=== PATIENT | female | born 1950 | race Caucasian/White ===

== ENCOUNTER → 2016-11-23 | Day surgery (SDC) | payer OTHER ==
[~2016-11-23] MED LIST: DIAZEPAM 5 MG TAB PO STA; HYDROcodone/APAP 5-325MG 1 EACH TAB PO PRN; PREMYELOGRAM MEDICATION REVIEW 1 EACH MISC PO ONE; SODIUM BICARB 4% 5 ML VIAL (0.48 MEQ/ML) MISCELLANE PRN
[2016-11-23 08:22] VITALS: TEMP 98
[2016-11-23 08:57] LABS: Glucose,Whole Blood 210 mg/dL (75-99)
--- NOTE | 2016-11-23 11:52 | CT ---
EXAMINATION TYPE: CT lumbar spine w con DATE OF EXAM: 11/23/2016 11:40 AM COMPARISON: Previous study dated 07/27/2016. HISTORY: Radiculopathy and Myelopathy CT DLP: 1621.3 mGycm Automated exposure control for dose reduction was used. CONTRAST: CT scan of the lumbar is performed with intrathecal injection of 9 cc of Omnipaque 240. TECHNIQUE: Enhanced CT of the lumbar spine was performed. Bone and soft tissue window settings are s ubmitted as well as coronal and sagittal reconstructions. FINDINGS: There is tortuosity of the abdominal aorta. There is an infrarenal abdominal aortic aneurys m measuring 3.3 cm. Paraspinal soft tissues are otherwise normal. Vertebral body height and alignment are maintained. There is no spondylolysis or spondylolisthesis. T here is degenerative disc disease and vacuum phenomena present at T11-12 and T12-L1 as well as L5-S1. At T12-L1, there is a vacuum phenomena. There is hypertrophic spondylosis. There is no significant co mpressive discopathy. The intervertebral foramina appear widely maintained. The facets are unremarkab le. At L1-2, there is mild hypertrophic spondylosis anteriorly. The intervertebral foramina are widely pa tent. There is a diffuse disc displacement effacing the thecal sac. There is minimal facet arthropath y. At L2-3, the intervertebral foramina are widely maintained. There is a diffuse disc displacement mild ly effacing the thecal sac. There is mild facet arthropathy. At L3-4, the intervertebral foramina are well maintained. There is a diffuse disc displacement effaci ng the thecal sac. The facets appear unremarkable. At L4-5, there is marked hypertrophic change in the facets. There is a diffuse disc displacement effa cing the thecal sac. There is mild trefoiling of the thecal sac. At L5-S1, there is disc space loss and vacuum phenomena. The intervertebral foramina appear well main tained. There is hypertrophic spondylosis both anteriorly and posteriorly. The posterior spurring is effacing the thecal sac and abutting both traversing S1 nerve roots. IMPRESSION: 1. Diffuse degenerative disc disease and facet arthropathy. 2. Posterior bony spur, L5-S1, effaces both of the traversing S1 nerve roots.
--- NOTE | 2016-11-23 11:57 | CT ---
EXAMINATION TYPE: CT cervical spine w con DATE OF EXAM: 11/23/2016 11:39 AM COMPARISON: NONE HISTORY: Radiculopathy and Myelopathy CT DLP: 862.2 mGycm Automated exposure control for dose reduction was used. TECHNIQUE: CT scan of the brain and cervical spine are performed after the intrathecal injection of 9 0 cc Omnipaque 240. FINDINGS: There is good distribution of contrast around the cervical cord. There is mild dependent atelectasis within the dependent portions of the lungs. There is extensive vascular calcification present. Prevertebral soft tissues appear normal. Vertebral body height and alignment remain normal. There is a normal atlantoaxial relationship. There is a fusion at C6-7. The remaining disc levels are well maintained. There is no significant deg enerative disc disease, uncovertebral joint disease or facet arthropathy. From C2-3 through to C4-5, no abnormality is seen. At C5-6, there is a mild, diffuse disc displacement. There is mild right-sided intervertebral foramin al narrowing. The facet and uncovertebral joints are unremarkable. At C6-7, there appears to be congenital fusion. The intervertebral foramina are well maintained. Ther e is no significant compressive discopathy. The facets are unremarkable. At C7-T1, there is no significant compressive discopathy. The intervertebral foramina are well mainta ined. The facet and uncovertebral joints are unremarkable. IMPRESSION: 1. 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 2. No significant compressive discopathy or neural compression.
--- NOTE | 2016-11-23 12:07 | FL ---
EXAMINATION TYPE: FL myelogram 2 or more regions DATE OF EXAM ORDERED: 11/23/2016 11:59 AM HISTORY: Neck and back pain. COMPARISON: None. TECHNIQUE: The procedure was performed by Dr. Matt. Using a right paracentral approach, the thecal sac was punctured at the L2-3 level. 9 cc of Omnipaque 240 were instilled into the thecal sac. The patient was manipulated to distribute the contrast throu ghout the spinal canal. The patient was transferred to CT scan for further imaging. IMPRESSION: SUCCESSFUL LUMBAR PUNCTURE FOR INSTILLATION OF CONTRAST. FLUOROSCOPY TIME: 1 MINUTE 14 SECONDS.
[2016-11-23 13:24] VITALS: BP 170/72; PULSE 66; RESP 18
== END ==
LOC: RADPROMAIN 07:46
DX: M51.14 Intervertebral disc disorders with radiculopathy, thoracic region (principal); M51.15 Intervertebral disc disorders with radiculopathy, thoracolumbar region; M51.17 Intervertebral disc disorders with radiculopathy, lumbosacral region; M47.25 Other spondylosis with radiculopathy, thoracolumbar region; M47.26 Other spondylosis with radiculopathy, lumbar region; M47.27 Other spondylosis with radiculopathy, lumbosacral region; M46.96 Unspecified inflammatory spondylopathy, lumbar region; M46.07 Spinal enthesopathy, lumbosacral region; I71.4 Abdominal aortic aneurysm, without rupture; M43.22 Fusion of spine, cervical region; M50.122 Cervical disc disorder at C5-C6 level with radiculopathy; M50.022 Cervical disc disorder at C5-C6 level with myelopathy; M48.06 Spinal stenosis, lumbar region; Z88.5 Allergy status to narcotic agent; K21.9 Gastro-esophageal reflux disease without esophagitis; I10 Essential (primary) hypertension; F41.9 Anxiety disorder, unspecified; F32.9 Major depressive disorder, single episode, unspecified; E11.9 Type 2 diabetes mellitus without complications
CPT/HCPCS: 62305; 72126; 72132; J2001; 62284

== ENCOUNTER → 2016-12-17 | Outpatient (CLI) | payer OTHER ==
--- NOTE | 2016-12-18 09:30 | XR ---
EXAMINATION TYPE: XR chest 2V DATE OF EXAM: 12/17/2016 12:19 PM COMPARISON: 07/16/2016 TECHNIQUE: PA and lateral views submitted. HISTORY: Cough FINDINGS: Heart is enlarged. There is postsurgical change. No pneumothorax. No interstitial edema. IMPRESSION: 1. No acute process
== END ==
LOC: RADXRYALE 11:52
PROVIDERS: ATTEND Physician Assistant Medical
DX: R05 Cough (principal); R60.9 Edema, unspecified
CPT/HCPCS: 71020

== ENCOUNTER → 2017-03-04 | Outpatient (CLI) | payer OTHER ==
--- NOTE | 2017-03-05 08:51 | XR ---
EXAMINATION TYPE: XR chest 2V DATE OF EXAM: 03/04/2017 11:28 AM COMPARISON: 12/17/2016 TECHNIQUE: PA and lateral views submitted. HISTORY: COPD FINDINGS: The lungs are clear and there is no pneumothorax, pleural effusion, or focal pneumonia. Cardiomegal y and postoperative changes seen. There is a coarsened interstitium which appears chronic. Degenerati ve change of the spine. Correlate for underlying COPD. Arthropathy of the shoulder. IMPRESSION: 1. Cardiomegaly with coarsened interstitium which appears chronic. Correlate for chronic interstitial lung disease or congestion.
== END | disposition home or self-care (01) ==
LOC: RADXRYALE 10:57
PROVIDERS: ATTEND Physician Assistant Medical
DX: I51.7 Cardiomegaly (principal)
CPT/HCPCS: 71020; 87070

== ENCOUNTER → 2017-06-07 | Outpatient (CLI) | payer MEDICARE, OTHER ==
--- NOTE | 2017-06-07 11:43 | US ---
EXAMINATION TYPE: US abdomen complete DATE OF EXAM: 06/07/2017 COMPARISON: US CLINICAL HISTORY: R19.00 Abdominal mass, unspecified abdominal locat. known AAA EXAM MEASUREMENTS: Liver Length: 14.6 cm Gallbladder Wall: Surgically absent cm CBD: 0.3 cm Spleen: 12.2 cm Right Kidney: 12.5 x 4.5 x 5.3 cm Left Kidney: 11.9 x 5.0 x 5.8 cm patient's main complaint was lump which was imaged on pelvic exam. Pancreas: not visualized Liver: Homogeneous echotexture without discrete mass. Gallbladder: Surgically absent CBD: wnl Spleen: wnl Right Kidney: No hydronephrosis or masses seen Left Kidney: No hydronephrosis or masses seen Upper IVC: wnl Abd Aorta: mid/distal AAA. Distal aorta contains a saccular area of ectasia measuring 3.1 x 3.4 cm. The liver is homogenous. The intrahepatic portion of the IVC and proximal abdominal aorta are within normal limits. There is no evidence of cholelithiasis. Common bile duct is unremarkable. The splee n is unremarkable. Kidneys are symmetric and free of hydronephrosis. No renal lesions are seen. IMPRESSION: 1. Saccular ectasia of the distal abdominal aorta measuring 3.1 x 3.4 cm.
--- NOTE | 2017-06-07 11:56 | US ---
EXAMINATION TYPE: US pelvic complete DATE OF EXAM: 06/07/2017 COMPARISON: NONE CLINICAL HISTORY: R19.00 Abdominal mass, unspecified abdominal locat. TECHNIQUE: Transabdominal (TA) Date of LMP: post menopausal EXAM MEASUREMENTS: Uterus: not seen cm Endometrial Stripe: not seen cm Right Ovary: not seen cm Left Ovary: not seen cm Patient has lump under pelvic scar from back surgery in March. Under lump there is a 6.1 x 4.4 x 8.6 c m complex fluid collection. Uterus and ovaries not visualized, patient refused transvag exam as she s tated she was here for the lump. 1. Uterus: not seen 2. Endometrium: not seen 3. Right Ovary: not seen 4. Left Ovary: not seen 5. Bilateral Adnexa: wnl 6. Posterior cul-de-sac: no free fluid IMPRESSION: 1. Avascular 8.6 cm complex fluid collection deep to the surgical scar that likely represents resolvi ng hematoma and/or seroma. Short-term follow-up is recommended to ensure resolution. 2. Nonvisualization of the uterus, endometrium, or ovaries as evaluation was directed towards the pal pable abnormality.
== END ==
LOC: RADUSWWP 10:49
PROVIDERS: ATTEND Family Medicine
DX: R19.00 Intra-abdominal and pelvic swelling, mass and lump, unspecified site (principal); I77.811 Abdominal aortic ectasia
CPT/HCPCS: 76700; 76856

== ENCOUNTER → 2017-07-11 | Outpatient (CLI) | payer MEDICARE, OTHER ==
--- NOTE | 2017-07-12 12:07 | MM ---
Reason for exam: screening (asymptomatic). Last mammogram was performed 1 year and 11 months ago. History: Patient is postmenopausal. Physical Findings: A clinical breast exam by your physician is recommended on an annual basis and results should be correlated with mammographic findings. MG Screening Mammo w CAD Bilateral CC and MLO view(s) were taken. XCCL view(s) were taken of the left breast. Prior study comparison: August 23, 2015, left breast MG 3d diag mammo w/cad LT. February 28, 2015, left breast MG work up mamm w CAD LT. There are scattered fibroglandular densities. 5mm asymmetry medial right breast anterior to middle depth. This finding is changed when compared with previous exams. ASSESSMENT: Incomplete: need additional imaging evaluation, BI-RAD 0 RECOMMENDATION: Special view mammogram of the right breast. If lesion persists on supplemental views, image directed ultrasound is recommended. [facility] will attempt to contact patient to return for supplemental views and ultrasound if indicated.
== END | disposition home or self-care (01) ==
LOC: RADMAMWWP 07:13
PROVIDERS: ATTEND Family Medicine
DX: Z12.31 Encounter for screening mammogram for malignant neoplasm of breast (principal)

== ENCOUNTER → 2017-07-22 | Outpatient (CLI) | payer MEDICARE, OTHER ==
--- NOTE | 2017-07-22 14:16 | MM ---
Reason for exam: additional evaluation requested from abnormal screening. Last mammogram was performed less than 1 month ago. History: Patient is postmenopausal. Physical Findings: Nurse did not find any significant physical abnormalities on exam. MG 3D Work Up W/Cad RT LM and spot compression CC view(s) were taken of the right breast. Prior study comparison: July 11, 2017, bilateral MG screening mammo w CAD. August 23, 2015, left breast MG 3d diag mammo w/cad LT. February 28, 2015, left breast MG work up mamm w CAD LT. February 22, 2015, bilateral MG screening mammo w CAD. September 24, 2013, bilateral digital screening mammo w/CAD. There are scattered fibroglandular densities. The questioned anterior asymmetry completely disperses on spot 3D. No significant new findings when compared with previous films. These results were verbally communicated with the patient and result sheet given to the patient on 07/22/17. ASSESSMENT: Negative, BI-RAD 1 RECOMMENDATION: Return to routine screening mammogram schedule for both breasts.
== END | disposition home or self-care (01) ==
LOC: RADMAMWWP 13:31
PROVIDERS: ATTEND Family Medicine
DX: R92.8 Other abnormal and inconclusive findings on diagnostic imaging of breast (principal)
CPT/HCPCS: G0206; G0279

== ENCOUNTER → 2018-01-02 | Outpatient (CLI) | payer MEDICARE, OTHER ==
--- NOTE | 2018-01-03 13:32 | CT ---
EXAMINATION TYPE: CT angio neck DATE OF EXAM: 01/03/2018 COMPARISON: NONE HISTORY: Right carotid stenosis. CT DLP: 439 mGycm CONTRAST: CTA cervical carotids is performed and with IV Contrast, patient injected with 65 mL of Omnipaque 350 . Contrast CTA of the cervical carotids was performed 3-D reconstruction imaging obtained at a separate workstation. Right carotid system: Mild plaque is seen of the right common carotid artery. There is moderate to s evere plaque also noted at the carotid bulb and proximal right ICA. Estimated diameter reduction is greater than 90%. ECA is patent. Right vertebral artery appears unremarkable. Left carotid system: Mild plaque is seen of the left common carotid artery. There is mild plaque als o noted at the carotid bulb. Estimated diameter reduction is less than 40%. ECA is patent. Left ve rtebral artery appears unremarkable. Diminutive the left thyroid lobe. Suspect right thyroid nodule. Correlate with the ultrasound. IMPRESSION: 1. High-grade stenosis right ICA estimated at greater than 90%. 2. Estimated diameter reduction Left ICA less than 40%.
== END | disposition home or self-care (01) ==
LOC: RADCTMAIN 16:04
PROVIDERS: ATTEND Thoracic Surgery (Cardiothoracic Vascular Surgery)
DX: I65.21 Occlusion and stenosis of right carotid artery (principal)
CPT/HCPCS: 82565; 84520; 70498; 36415; Q9967

== ENCOUNTER → 2018-03-31 | Outpatient (CLI) | payer MEDICARE, OTHER ==
[2018-03-31 10:21] LABS: Anisocytosis Slight; Basophils % (A) 0 %; Eosinophils # (A) 0.2 k/uL (0-0.7); Eosinophils % (A) 2 %; HGB 13.2 gm/dL (11.4-16.0); Hypochromasia Slight; Lymphocytes # (A) 1.9 k/uL (1.0-4.8); Lymphocytes % (A) 21 %; MCH 27.7 pg (25.0-35.0); MCHC 32.1 g/dL (31.0-37.0); MCV 86.3 fL (80.0-100.0); Mean Platelet Volume 6.7; Monocytes # (A) 0.5 k/uL (0-1.0); Monocytes % (A) 5 %; Neutrophils # (A) 6.2 k/uL (1.3-7.7); Neutrophils % (A) 69 %; Platelet Count 292 k/uL (150-450); RBC 4.75 m/uL (3.80-5.40); RDW 16.2 % (11.5-15.5)
[2018-03-31 10:54] LABS: Appearance,Urine Cloudy (Clear); Bacteria,Urine Moderate /hpf; Bilirubin,Urine Negative (Negative); Blood,Urine Trace (Negative); Color,Urine Yellow; Glucose,Urine (UA) Negative (Negative); Hyaline Casts,Urine 1 /lpf (0-2); Ketones,Urine Negative (Negative); Leukocyte Esterase,Urine Large (Negative); Mucus,Urine Occasional /hpf; Nitrite,Urine Negative (Negative); Protein,Urine 2+ (Negative); RBC,Urine 4 /hpf (0-5); Specific Gravity,Urine 1.019 (1.001-1.035); Squamous Epithelial Cell,Urine 3 /hpf (0-4); WBC,Urine 98 /hpf (0-5)
[2018-03-31 10:56] LABS: Potassium 3.5 mmol/L (3.5-5.1)
== END | disposition home or self-care (01) ==
LOC: LABPAT 09:24
PROVIDERS: ATTEND Surgery
DX: Z01.812 Encounter for preprocedural laboratory examination (principal); I65.21 Occlusion and stenosis of right carotid artery
CPT/HCPCS: 36415; 80051; 81001; 82565; 82947; 84520; 85025

== ENCOUNTER 2018-04-03 07:02 | Inpatient (IN) | payer MEDICARE, OTHER ==
[2018-03-26 13:32] VITALS: BMI 36.8
[~2018-04-03 07:02] MED LIST changes: +DEXAMETHASONE SOD PHOSPHATE 10 MG/ML 1 ML VIAL IV ONE; -DIAZEPAM 5 MG TAB PO STA; -HYDROcodone/APAP 5-325MG 1 EACH TAB PO PRN; +HYDROmorphone 0.5 MG/0.5 ML SYRINGE IVP PRN; +MIDAZOLAM 2 MG/2 ML VIAL IV PRN; +NITROGLYCERIN-D5W PMX 50 MG in DEXTROSE/WATER 1 250ML.BAG IV SCH; +ONDANSETRON 4 MG/2 ML VIAL IVP ONE; +PHENYLEPHRINE 40 MG in SODIUM CHLORIDE 0.9% 250 ML IV SCH; -PREMYELOGRAM MEDICATION REVIEW 1 EACH MISC PO ONE; -SODIUM BICARB 4% 5 ML VIAL (0.48 MEQ/ML) MISCELLANE PRN
[2018-04-03] MEDS ORDERED: LIDOCAINE 1% 20 ML VIAL (10MG/ML) FOR IV START INTRADERMA ONE (07:43)
[2018-04-03] MEDS: LACTATED RINGERS 1,000 ML IV SCH ×2 (07:43→17:41)
[2018-04-03 07:46] LABS: Glucose,Whole Blood 126 mg/dL (75-99)
[2018-04-03] MEDS ORDERED: ceFAZolin 2,000 MG in SODIUM CHLORIDE 0.9% 500 ML IRRIGATION ONE (09:06)
[2018-04-03] MEDS ORDERED: HEPARIN SODIUM PORCINE IV ONE ×4 (09:06)
[2018-04-03] MEDS ORDERED: SODIUM CHLORIDE 0.9% IV ONE ×4 (09:06)
[2018-04-03] MEDS ORDERED: ROCURONIUM BROMIDE 10 MG/ML 10 ML VIAL IV ONE (09:08)
[2018-04-03] MEDS ORDERED: PROTAMINE SULFATE 10 MG/ML 5 ML VIAL IV ONE (09:08)
[2018-04-03] MEDS ORDERED: HEPARIN SODIUM,PORCINE 10,000 UNIT/ML 1 ML VIAL ONE (09:08)
[2018-04-03] MEDS ORDERED: ePHEDrine SULFATE/0.9% NACL/PF 50 MG/5 ML SYRINGE IV ONE (09:08)
[2018-04-03] MEDS ORDERED: MIDAZOLAM 2 MG/2 ML VIAL ONE (09:08)
[2018-04-03] MEDS ORDERED: PROPOFOL 10 MG/ML 20 ML VIAL IV ONE (09:08)
[2018-04-03] MEDS ORDERED: SUCCINYLCHOLINE CHLORIDE 100 MG/5 ML SYR IV ONE (09:08)
[2018-04-03] MEDS ORDERED: HYDROmorphone (PF) 1 MG/ML ONE (09:08)
[2018-04-03] MEDS ORDERED: NEOSTIGMINE 1 MG/ML 10 ML VIAL ONE (09:08)
[2018-04-03] MEDS ORDERED: LIDOCAINE 1% INJ 10MG/ML (20 ML MDV) ONE (09:08)
[2018-04-03] MEDS ORDERED: fentaNYL (PF) 50 MCG/ML 2 ML AMP ONE (09:08)
[2018-04-03] MEDS ORDERED: LACTATED RINGERS 1,000 ML IV ONE (10:31)
[2018-04-03] MEDS ORDERED: MAG HYDROX/AL HYDROX/SIMETH 30 ML CUP PO PRN (11:39)
[2018-04-03] MEDS ORDERED: ACETAMINOPHEN TAB 325 MG TAB PO PRN (11:39)
[2018-04-03] MEDS ORDERED: HYDROcodone/APAP 5-325MG 1 EACH TAB PO PRN (11:39)
[2018-04-03] MEDS ORDERED: BENZOCAINE/MENTHOL LOZENG 1 EACH LOZENGE MUCOUS MEM PRN (11:39)
[2018-04-03] MEDS ORDERED: TRIMETHOBENZAMIDE 100 MG/ML 2 ML VIAL IM PRN (11:39)
[2018-04-03] MEDS ORDERED: LABETALOL SYRINGE 5 MG/ML IVP ONE (12:00)
--- NOTE | 2018-04-03 12:04 | P.OP ---
Date of Procedure: 04/03/18 Preoperative Diagnosis: Hemodynamically severe right internal carotid artery stenosis Postoperative Diagnosis: Same Procedure(s) Performed: Right carotid endarterectomy with patch angioplasty Anesthesia: JULIANA Surgeon: Jignesh Benavides Estimated Blood Loss (ml): 100 Pathology: other (Carotid plaque) Disposition: PACU Indications for Procedure: Patient is a 67-year-old female on follow-up for carotid disease was found to be suffering from hemodynamically severe right internal carotid artery stenosis Operative Findings: Hemodynamically severe right internal carotid artery stenosis Description of Procedure: Patient was brought the upper and placed in supine position and administered general endotracheal anesthesia delivered by the department of anesthesiology. Mckeon catheter was placed to gravity drainage. Patient received 2 g of Ancef intravenously in the perioperative phase for prophylactic therapy. Patient was sterilely prepped and draped in usual manner. Skin incision along the anterior border of the sternocleidomastoid muscle on the right was made carried down through the subcutaneous tissues. Hemostasis was achieved using electrocautery. Incision was deepened through subcu change tissues. Platysma muscle was divided. Dissection was then continued along the anterior border sternocleidomastoid muscle. The facial vein was identified doubly ligated and divided between the ligatures. The carotid sheath was identified and entered. The common carotid artery was identified proximally dissected free of investing tissues. The vagus nerve was identified and left undisturbed. The dissection was then carried cephalad to the carotid bulb. The superior thyroid artery and external carotid artery were identified dissected free of investing tissues and encircled Vesseloops. The dissection was then carried proximally along the internal carotid artery to a point passed the plaque burden was reached. The carotid artery was encircled Vesseloops at this level. The hypoglossal nerve was identified and left undisturbed. The patient was systemically heparinized and ACT is were drawn. Heparin was adjusted based on ACT results. Vessel loops surrounding the internal and external/superior thyroid artery and common carotid artery drawn closed. Arteriotomy was made in the common carotid artery extended with Pott Hobbs scissors through the bulb level and into the internal carotid artery. Stump pressures were obtained. Mean pressure was measured at 82 mmHg and thus no shunting was felt necessary. Endarterectomy was then performed beginning in the common carotid extending distally into the bulb level where a retraction endarterectomy was performed on the external segment. Once performed the endarterectomy was then continued into the internal carotid segment and the distal tip feathered well without need for tacking sutures. The plaque was sent to the department of anesthesiology. Any loose or free-floating plaque was then removed from the luminal surface. Patch angioplasty closure with bovine pericardium was performed utilizing 6-0 Prolene suture placed in running fashion. Just prior to completion of the anastomotic line backbleeding was allowed to occur through the internal segment no thrombus was retrieved. It was then occluded at its origin and the common carotid artery was flushed and no thrombus was retrieved. The anastomotic line was then completed. Once again backbleeding was allowed to occur through the internal segment and the artery was occluded at its origin. Vessel loops surrounding the external carotid/superior thyroid artery were loosened followed by loosening of the vessel loops surrounding the common carotid artery. Flow was then allowed to occur into the external segment flushing any potential debris into the external segment. Flow was then allowed to occur into the internal segment. One point of bleeding was identified along the anastomotic line and this was controlled was 6-0 Prolene suture. Excellent pulse in the carotid artery distal to the endarterectomy plane was noted. The patient received 25 mg protamine to reverse the heparin effect. Topical thrombin and Gelfoam were placed about the anastomotic line. The wound was then irrigated with antibiotic containing solution. Deep tissues were closed with 3-0 Vicryl and dermis was closed with 4-0 Monocryl placed in running intradermal fashion. Dermabond was then applied to the wound. Appropriate dressing was then applied. Patient tolerated procedure well. She awoke without apparent neurologic deficit and was transferred to the recovery area satisfactory and stable condition.
[2018-04-03 12:06] LABS: Glucose,Whole Blood 208 mg/dL (75-99)
[2018-04-03] MEDS ORDERED: ENALAPRILAT 1.25 MG/ML 1 ML VIAL IVP ONE (12:26)
[2018-04-03 13:59] LABS: Glucose,Whole Blood 240 mg/dL (75-99)
[2018-04-03] MEDS ORDERED: NALOXONE 0.4 MG/ML 1 ML VIAL IV PRN (14:02)
[2018-04-03 17:21] LABS: Glucose,Whole Blood 260 mg/dL (75-99)
[2018-04-03] MEDS: ASPIRIN 81 MG PO SCH (17:21)
[2018-04-03] MEDS: ceFAZolin IN SWFI 2 GM/20 ML SYRINGE IVP SCH (17:41)
[2018-04-03] MEDS: INSULIN ASPART 100 UNIT/ML 1 ML 10 ML VIAL SQ SCH ×2 (17:41→20:36)
--- NOTE | 2018-04-03 18:23 | P.CNPUL ---
History of Present Illness Consult date: 04/03/18 Chief complaint: Right carotid endarterectomy History of present illness: 67-year-old female patient underwent a right carotid endarterectomy in currently she is in the intensive care unit for postoperative monitoring. The patient underwent her surgery without any immediate complications. She was brought into the intensive care unit hemodynamically stable. She has no specific complaints. The patient is slightly hypertensive and currently she is on nitroglycerin drip running at 25 mics per KG per minute. The patient has history of hypertension. She also has history of COPD, diabetes mellitus, hyperlipidemia, and previous history of abdominal aortic aneurysm. She has already undergone a previous left carotid endarterectomy. She is known to have carotid artery disease. No history of CVA. 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 She follows up with Dr. Garzon from cardiology and her primary care physician is Dr. Jaden Salazar. She has normal left posterior function and ejection fraction based on previous echocardiogram and previous chronic stress test were also within normal limits. She is free of any chest pain for now. She is a chronic smoker. Review of Systems Full review of system was done in its positive for only the things mentioned above. No chest pain. No shortness of breath. No angina. No altered mentation. She is moving all 4 extremities without any limitation. No change in her speech. No headache. No seizure activity. No nausea or vomiting. No diarrhea or abdominal pain. No palpitations. No angina. No swelling lower extremities. No wounds or sores or ulceration. No falls. 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 History of Any Multi-Drug Resistant Organisms: None Reported Past Surgical History: Appendectomy, Back Surgery, Cholecystectomy, Heart Catheterization, Orthopedic Surgery Additional Past Surgical History / Comment(s): Resection of an atrial myxoma/ open heart for removal of tumor on the heart, arthroscopic bilateral knees, left carotid endarterectomy 2014, cyst removed from left ovary, devyn cataracts Past Anesthesia/Blood Transfusion Reactions: No Reported Reaction Smoking Status: Current every day smoker - Past Family History Mother Family Medical History: Diabetes Mellitus, Hyperlipidemia, Hypertension Sister(s) Family Medical History: Cancer Medications and Allergies Home Medications Medication Instructions Recorded Confirmed Type Esomeprazole Magnesium [NexIUM] 40 mg PO DAILY 03/23/14 04/03/18 History Furosemide [Lasix] 20 mg PO HS 03/23/14 04/03/18 History Insulin Aspart [NovoLOG] See Protocol SQ TID-W/MEALS PRN 03/23/14 04/03/18 History Insulin Detemir [Levemir] 60 unit SQ HS 03/23/14 04/03/18 History Aspirin [Adult Low Dose Aspirin EC] 81 mg PO DAILY 03/26/18 04/03/18 History Enalapril Maleate [Vasotec] 20 mg PO DAILY 03/26/18 04/03/18 History Ergocalciferol [Vitamin D2] 50,000 unit PO MO 03/26/18 04/03/18 History Escitalopram [Lexapro] 10 mg PO DAILY 03/26/18 04/03/18 History Ipratropium/Albuterol Sulfate 2 puff INHALATION RT-QID PRN 03/26/18 04/03/18 History [Combivent Respimat Inhaler] Metoprolol Tartrate [Lopressor] 50 mg PO BID 03/26/18 04/03/18 History glipiZIDE [Glucotrol] 10 mg PO AC-BID 03/26/18 04/03/18 History sitaGLIPtin PHOSPHATE [Januvia] 100 mg PO DAILY 03/26/18 04/03/18 History Rosuvastatin Calcium [Crestor] 40 mg PO HS 04/03/18 04/03/18 History Allergies Allergy/AdvReac Type Severity Reaction Status Date / Time codeine Allergy Chest Pain Verified 04/03/18 12:37 metformin Allergy Diarrhea Verified 04/03/18 12:37 dogs,horses,mold Allergy Unknown Uncoded 03/26/18 13:13 Physical Exam Vitals: Vital Signs Temp Pulse Pulse Pulse Resp BP BP 04/03/18 17:00 72 21 04/03/18 16:00 98.2 F 73 20 04/03/18 15:00 75 04/03/18 14:00 75 04/03/18 13:50 98.1 F 77 22 04/03/18 13:42 77 21 04/03/18 13:17 76 18 150/51 133/63 04/03/18 13:02 76 18 148/51 04/03/18 12:45 77 18 149/50 145/65 04/03/18 12:30 72 18 150/50 04/03/18 12:15 74 18 152/52 136/62 04/03/18 12:00 74 18 162/58 04/03/18 11:45 76 18 166/50 161/72 04/03/18 11:37 97.6 F 76 18 168/83 04/03/18 07:20 98.2 F 54 L 16 191/83 187/75 Pulse Ox 04/03/18 17:00 95 04/03/18 16:00 93 L 04/03/18 15:00 92 L 04/03/18 14:00 91 L 04/03/18 13:50 93 L 04/03/18 13:42 04/03/18 13:17 3 L 04/03/18 13:02 98 04/03/18 12:45 92 L 04/03/18 12:30 92 L 04/03/18 12:15 94 L 04/03/18 12:00 91 L 04/03/18 11:45 94 L 04/03/18 11:37 98 04/03/18 07:20 97 Intake and Output 04/03/18 04/03/18 04/03/18 06:59 14:59 22:59 Intake Total 1602.4 300 Output Total 800 0 Balance 802.4 300 Intake: IV 1502.4 Intake, IV Titration 100 300 Amount Lactated Ringers 1,000 ml 100 300 @ 100 mls/hr IV .Q10H [facility] Rx#:[id number] Output: Urine 700 0 Estimated Blood Loss 100 Other: Weight 100.244 kg ABP, PAP, CO, CI - Last 8 Hours Arterial Blood Pressure 171/60 Arterial Blood Pressure 161/57 Arterial Blood Pressure 157/55 Arterial Blood Pressure 115/51 Arterial Blood Pressure 142/60 Gen. appearance the patient is calm and comfortable likely distress. Head exam was generally normal. There was no scleral icterus or corneal arcus. Mucous membranes were moist. Neck is supple and the surgical wound site over the right neck area dry clean and intact. There is some limited swelling in the surgical wound site. No drains are present. No significant hematoma formation. Also scar on the left neck related to a previous left carotid endarterectomy. No JVDs. No goiter or neck masses. Lungs were clear to auscultation and percussion, and with normal diaphragmatic excursion. No wheezes or rales were noted. Cardiac exam revealed the PMI to be normally situated and sized. The rhythm was regular and no extrasystoles were noted during several minutes of auscultation. The first and second heart sounds were normal and physiologic splitting of the second heart sound was noted. There were no murmurs, rubs, clicks, or gallops. Scar of previous thoracotomy is present over the anterior chest area. Abdominal exam revealed normal bowel sounds. The abdomen was soft, non-tender, and without masses, organomegaly, or appreciable enlargement of the abdominal aorta. Examination of the extremities revealed easily palpable radial, femoral and pedal pulses. There was no cyanosis, clubbing or edema. Examination of the skin revealed no evidence of significant rashes, suspicious appearing nevi or other concerning lesions. Neurologically awake and alert and is no focal logical deficits or cranial nerve deficits Examination of the skin revealed no evidence of significant rashes, suspicious appearing nevi or other concerning lesions. Results - Laboratory Findings Abnormal lab findings: Abnormal Labs 04/03/18 04/03/18 04/03/18 07:28 12:04 13:39 POC Glucose (mg/dL) 126 H 208 H 240 H 04/03/18 17:18 POC Glucose (mg/dL) 260 H Assessment and Plan Plan: 1 right carotid endarterectomy, postop day #0 2 hypertension, currently blood pressure is elevated and the patient is currently on nitroglycerin drip for blood pressure control 3 previous left carotid endarterectomy that was done in 2014 4 peripheral vascular disease 5 diabetes mellitus 2 6 hyperlipidemia 7 history of atrial myxoma resection 8 smoker 9 COPD currently inactive in stable Plan No immediate postsurgical complications. Neurovascularly intact. The patient' s will be restarted back on her metoprolol and lisinopril. Gradually wean off the nitroglycerin drip and discontinue if possible. Maintain systolic blood pressure less than 140. Restart Levemir insulin 60 units 4 hyperglycemia and cover with a sliding scale coverage. No cough or pain control. Neuro checks. Monitor the surgical wound site. Labs in a.m. We'll continue to follow.
[2018-04-03 20:00] LABS: Glucose,Whole Blood 269 mg/dL (75-99)
[2018-04-03] MEDS: METOPROLOL TARTRATE 50 MG TAB PO SCH (20:36)
[2018-04-03] MEDS: HYDROcodone/APAP 5-325MG 1 EACH TAB PO PRN (20:37)
[2018-04-03] MEDS ORDERED: INSULIN DETEMIR 100 UNIT/ML 10 ML VIAL SQ SCH (21:00)
[2018-04-04] MEDS: ceFAZolin IN SWFI 2 GM/20 ML SYRINGE IVP SCH (00:01)
[2018-04-04] MEDS: LACTATED RINGERS 1,000 ML IV SCH (00:26)
[2018-04-04 01:37] LABS: Glucose,Whole Blood 223 mg/dL (75-99)
[2018-04-04] MEDS: INSULIN ASPART 100 UNIT/ML 1 ML 10 ML VIAL SQ SCH ×2 (01:38→08:38)
[2018-04-04] MEDS: HYDROcodone/APAP 5-325MG 1 EACH TAB PO PRN (03:47)
[2018-04-04 04:46] LABS: Basophils % (A) 0 %; Eosinophils # (A) 0.1 k/uL (0-0.7); Eosinophils % (A) 1 %; HCT 35.1 % (34.0-46.0); HGB 11.2 gm/dL (11.4-16.0); Hypochromasia Slight; Lymphocytes % (A) 16 %; MCHC 31.8 g/dL (31.0-37.0); MCV 84.8 fL (80.0-100.0); Mean Platelet Volume 7.7; Monocytes # (A) 0.7 k/uL (0-1.0); Monocytes % (A) 5 %; Neutrophils # (A) 9.8 k/uL (1.3-7.7); Neutrophils % (A) 77 %; Platelet Count 296 k/uL (150-450); RBC 4.14 m/uL (3.80-5.40); RDW 15.6 % (11.5-15.5); WBC 12.8 k/uL (3.8-10.6)
[2018-04-04 04:56] LABS: Calcium 8.6 mg/dL (8.4-10.2); Magnesium 1.5 mg/dL (1.6-2.3); Phosphorus 3.3 mg/dL (2.5-4.5); Potassium 3.3 mmol/L (3.5-5.1)
[2018-04-04] MEDS ORDERED: ceFAZolin IN SWFI 2 GM/20 ML SYRINGE IVP ONE (06:00)
[2018-04-04] MEDS: MAGNESIUM SULFATE-D5W PMX 1 GM in DEXTROSE/WATER 1 100ML.BAG IVPB SCH ×2 (06:37→08:55)
[2018-04-04] MEDS ORDERED: POTASSIUM CHLORIDE ER 20 MEQ TAB.ER PO SCH (07:00)
[2018-04-04 07:16] VITALS: PULSE 56
[2018-04-04 07:26] LABS: Glucose,Whole Blood 122 mg/dL (75-99)
[2018-04-04] MEDS ORDERED: PANTOPRAZOLE 40 MG TABLET PO SCH (07:30)
--- NOTE | 2018-04-04 07:43 | PN ---
PROGRESS NOTE This patient is a 67-year-old female. The patient had a right carotid endarterectomy done yesterday. I was called in by Dr. Benavides for followup. Her vital signs were stable. The incision in neck is healing good. She has normal motor function and tolerating diet and activity well. PLAN: The patient has history of diabetes which is well controlled with medication. The patient wants to go home today with followup with Dr. Benavides next week on . Continue with home medication. MMODL / IJN: [id number] /
[2018-04-04] MEDS: ASPIRIN 81 MG PO SCH (08:55)
[2018-04-04] MEDS: METOPROLOL TARTRATE 50 MG TAB PO SCH (08:56)
[2018-04-04] MEDS ORDERED: NON-FORMULARY DRUG (Aspirin [Adult Low Dose Aspirin Ec] 81 MG) PO SCH (09:00)
[2018-04-04] MEDS ORDERED: ENOXAPARIN 40 MG/0.4 ML SYRINGE SQ SCH (09:00)
[2018-04-04] MEDS ORDERED: ASPIRIN 81 MG PO SCH (09:00)
[2018-04-04] MEDS ORDERED: ESCITALOPRAM 10 MG TAB PO SCH (09:00)
[2018-04-04] MEDS ORDERED: LINAGLIPTIN 5 MG TABLET PO SCH (09:00)
[2018-04-04] MEDS ORDERED: LISINOPRIL 20 MG TAB PO SCH (09:00)
[2018-04-04 10:11] VITALS: BP 162/65; RESP 19; TEMP 98
[2018-04-04 13:24] LABS: Hemoglobin A1C 8.8 % (4.0-6.0)
--- NOTE | 2018-04-04 14:59 | P.PN ---
Subjective Progress Note Date: 04/04/18 On 04/02/2008 and the patient is postop day #1. The patient is doing well. The patient has no specific complaints. She was weaned off the nitroglycerin drip and this was discontinued and the patient has an adequate blood pressure control. No chest pain. No altered mentation. No focal neurological deficits. No headaches. No seizure activity. Blood sugars under good control. Raises are being made to discharge this patient home today. Surgical wound site over the right neck area dry clean and intact. Objective - Vital Signs Vital signs: Vital Signs Temp 98.0 F 04/04/18 09:00 Pulse 56 L 04/04/18 09:00 Resp 19 04/04/18 09:00 BP 162/65 04/04/18 09:00 Pulse Ox 95 04/04/18 09:00 Intake & Output 04/03/18 04/04/18 04/04/18 18:59 06:59 18:59 Intake Total 2362.4 1230.215 960 Output Total 800 550 Balance 1562.4 680.215 960 Weight 100.244 kg 105 kg 105 kg Intake: IV 1502.4 1100 500 Lactated Ringers 1,000 ml 1100 500 @ 100 mls/hr IV .Q10H [facility] Rx#:[id number] Intake, IV Titration 500 130.215 100 Amount Lactated Ringers 1,000 ml 500 @ 100 mls/hr IV .Q10H [facility] Rx#:[id number] Magnesium Sulfate-D5w Pmx 100 1 gm In Dextrose/Water 1 100ml.bag @ 100 mls/hr IVPB Q1H [facility] Rx#: [id number] Nitroglycerin-D5w Pmx 50 30.215 mg In Dextrose/Water 1 250ml.bag @ Titrate IV . Q0M [facility] Rx#:[id number] Sodium Chloride 0.9% 1, 100 000 ml As IV .STK-MED ONE with Heparin Sodium, Porcine 2,000 unit Rx#: [id number] Oral 360 360 Output: Urine 700 550 Estimated Blood Loss 100 Other: Voiding Method Toilet Toilet # Voids 1 1 ABP, PAP, CO, CI - Last Documented Arterial Blood Pressure 140/50 - Exam Gen. appearance, comfortable likely distress. Head exam was generally normal. There was no scleral icterus or corneal arcus. Mucous membranes were moist. Neck was supple and without jugular venous distension, thyromegaly, or carotid bruits. Carotids were easily palpable bilaterally. There was no adenopathy. A scar of a previous surgery over the left neck area and a fresh scar over the right neck area which is dry clean and intact at this point. Cardiac exam revealed the PMI to be normally situated and sized. The rhythm was regular and no extrasystoles were noted during several minutes of auscultation. The first and second heart sounds were normal and physiologic splitting of the second heart sound was noted. There were no murmurs, rubs, clicks, or gallops. Lungs were clear to auscultation and percussion, and with normal diaphragmatic excursion. No wheezes or rales were noted. Abdomen is obese soft nontender there is no organomegaly. Examination of the skin revealed no evidence of significant rashes, suspicious appearing nevi or other concerning lesions. Neurologically awake and alert and there is no focal neurological deficits. - Labs CBC & Chem 7: 04/04/18 04:35 04/04/18 04:35 Labs: Abnormal Lab Results - Last 24 Hours (Table) 04/03/18 04/03/18 04/04/18 Range/Units 17:18 19:58 01:34 WBC (3.8-10.6) k/uL Hgb (11.4-16.0) gm/dL RDW (11.5-15.5) % Neutrophils # (1.3-7.7) k/uL Potassium (3.5-5.1) mmol/L Glucose (74-99) mg/dL POC Glucose (mg/dL) 260 H 269 H 223 H (75-99) mg/dL Magnesium (1.6-2.3) mg/dL 04/04/18 04/04/18 04/04/18 Range/Units 04:35 04:35 07:24 WBC 12.8 H (3.8-10.6) k/uL Hgb 11.2 L (11.4-16.0) gm/dL RDW 15.6 H (11.5-15.5) % Neutrophils # 9.8 H (1.3-7.7) k/uL Potassium 3.3 L (3.5-5.1) mmol/L Glucose 154 H (74-99) mg/dL POC Glucose (mg/dL) 122 H (75-99) mg/dL Magnesium 1.5 L (1.6-2.3) mg/dL Assessment and Plan Plan: 1 right carotid endarterectomy, postop day #1 2 hypertension, currently under adequate control and the patient is currently off nitroglycerin drip. 3 previous left carotid endarterectomy that was done in 2014 4 peripheral vascular disease 5 diabetes mellitus 2 6 hyperlipidemia 7 history of atrial myxoma resection 8 smoker 9 COPD currently inactive in stable Plan Resume outpatient medication. Discharge her surgery. No active pulmonary or critical care issues on this patient for now. Outpatient medications have been ordered resume.
== END 2018-04-04 10:51 | disposition home or self-care (01) | DRG 39 ==
LOC: 2ORMAIN 07:02 → 6ICU 11:28
PROVIDERS: ADMIT Surgery; ATTEND Surgery
PROC: 03UK0KZ Supplement Right Internal Carotid Artery with Nonautologous Tissue Substitute, Open Approach (ICD-10-PCS; principal; 2018-04-03 09:00)
PROC: 03CK0ZZ Extirpation of Matter from Right Internal Carotid Artery, Open Approach (ICD-10-PCS; principal; 2018-04-03 09:00)
DX: I65.21 Occlusion and stenosis of right carotid artery (principal); E11.51 Type 2 diabetes mellitus with diabetic peripheral angiopathy without gangrene; E11.65 Type 2 diabetes mellitus with hyperglycemia; J43.9 Emphysema, unspecified; K21.9 Gastro-esophageal reflux disease without esophagitis; I10 Essential (primary) hypertension; M19.91 Primary osteoarthritis, unspecified site; E78.2 Mixed hyperlipidemia; R49.9 Unspecified voice and resonance disorder; R32 Unspecified urinary incontinence; F17.210 Nicotine dependence, cigarettes, uncomplicated; Z71.6 Tobacco abuse counseling; Z79.82 Long term (current) use of aspirin; Z79.4 Long term (current) use of insulin; Z79.899 Other long term (current) drug therapy; Z90.49 Acquired absence of other specified parts of digestive tract; Z86.79 Personal history of other diseases of the circulatory system; Z98.42 Cataract extraction status, left eye; Z98.41 Cataract extraction status, right eye; Z86.018 Personal history of other benign neoplasm; Z88.5 Allergy status to narcotic agent; Z88.8 Allergy status to other drugs, medicaments and biological substances; Z91.048 Other nonmedicinal substance allergy status; Z82.49 Family history of ischemic heart disease and other diseases of the circulatory system; Z83.3 Family history of diabetes mellitus; Z80.9 Family history of malignant neoplasm, unspecified; Z83.49 Family history of other endocrine, nutritional and metabolic diseases
CPT/HCPCS: 80048; 83036; 83735; 84100; 85025; 86850; 86900; 86901; 88304; 88311

== ENCOUNTER → 2018-08-20 | Outpatient (CLI) | payer MEDICARE, OTHER ==
--- NOTE | 2018-08-20 11:34 | MM ---
Reason for exam: screening (asymptomatic). Last mammogram was performed 1 year and 1 month ago. History: Patient is postmenopausal. Physical Findings: A clinical breast exam by your physician is recommended on an annual basis and results should be correlated with mammographic findings. MG 3D Screening Mammo W/Cad Bilateral CC and MLO view(s) were taken. Prior study comparison: July 22, 2017, right breast MG 3d work up w/cad RT. July 11, 2017, bilateral MG screening mammo w CAD. The breast tissue is heterogeneously dense. This may lower the sensitivity of mammography. There is no discrete abnormality. No significant changes when compared with prior studies. ASSESSMENT: Negative, BI-RAD 1 RECOMMENDATION: Routine screening mammogram of both breasts in 1 year.
== END | disposition home or self-care (01) ==
LOC: RADMAMWWP 07:08
PROVIDERS: ATTEND Family Medicine
DX: Z12.31 Encounter for screening mammogram for malignant neoplasm of breast (principal)
CPT/HCPCS: 77063; 77067

== ENCOUNTER → 2018-10-17 | Outpatient (CLI) | payer MEDICARE, OTHER ==
[2018-10-17 09:52] LABS: Anisocytosis Slight; HCT 46.9 % (34.0-46.0); HGB 14.9 gm/dL (11.4-16.0); Hypochromasia Slight; MCH 26.6 pg (25.0-35.0); MCHC 31.7 g/dL (31.0-37.0); MCV 83.7 fL (80.0-100.0); Mean Platelet Volume 6.5; Platelet Count 297 k/uL (150-450); WBC 8.8 k/uL (3.8-10.6)
[2018-10-17 10:52] LABS: Anion Gap 3 mmol/L; Blood Urea Nitrogen 7 mg/dL (7-17); Carbon Dioxide 33 mmol/L (22-30); Chloride 105 mmol/L (98-107); Potassium 3.4 mmol/L (3.5-5.1); Sodium 141 mmol/L (137-145)
== END ==
LOC: LABWHC1 09:06
PROVIDERS: ATTEND Internal Medicine Interventional Cardiology
DX: Z01.812 Encounter for preprocedural laboratory examination (principal); I25.10 Atherosclerotic heart disease of native coronary artery without angina pectoris; I10 Essential (primary) hypertension; E78.1 Pure hyperglyceridemia
CPT/HCPCS: 36415; 80051; 82565; 84520; 85027

== ENCOUNTER → 2018-10-30 | Day surgery (SDC) | payer MEDICARE, OTHER ==
[2018-10-28 15:37] VITALS: BMI 37.4
[~2018-10-30] MED LIST changes: +ACETAMINOPHEN TAB 325 MG TAB ONE; +ACETAMINOPHEN TAB 325 MG TAB PO STA; +ALPRAZolam 0.25 MG TAB PO PRN; +ASPIRIN 325 MG TAB PO STA; -DEXAMETHASONE SOD PHOSPHATE 10 MG/ML 1 ML VIAL IV ONE; -HYDROmorphone 0.5 MG/0.5 ML SYRINGE IVP PRN; +IOPAMIDOL-250 100ML BTL INTRAARTER ONE; +IOPAMIDOL-250 50ML BTL INTRAARTER ONE; +LIDOCAINE 1% INJ 10MG/ML (20 ML MDV) SQ ONE; +LISINOPRIL 20 MG TAB PO STA; -MIDAZOLAM 2 MG/2 ML VIAL IV PRN; +MIDAZOLAM 2 MG/2 ML VIAL IVP ONE; -NITROGLYCERIN-D5W PMX 50 MG in DEXTROSE/WATER 1 250ML.BAG IV SCH; -ONDANSETRON 4 MG/2 ML VIAL IVP ONE; +ONDANSETRON 4 MG/2 ML VIAL IVP STA; +ONDANSETRON 4 MG/2 ML VIAL ONE; -PHENYLEPHRINE 40 MG in SODIUM CHLORIDE 0.9% 250 ML IV SCH; +SODIUM CHLORIDE 0.9% 1,000 ML IV SCH; +SODIUM CHLORIDE 0.9% 1,000 ML in EMPTY BAG 1 BAG IV ONE
[2018-10-30 11:49] VITALS: RESP 18; TEMP 98.2
[2018-10-30 11:54] LABS: Glucose,Whole Blood 165 mg/dL (75-99)
[2018-10-30] MEDS: hydrALAZINE HCL 20 MG/ML 1 ML VIAL IV ONE ×2 (12:22→12:32)
--- NOTE | 2018-10-30 12:56 | LTR ---
October 30, 2018 Re: Marilyn Moeller Dear Dr. Barajas: Ms. Marilyn Moeller was experiencing bilateral lower extremities intermittent claudication and I did perform an angiogram on her and that revealed occluded bilateral femoral arteries. She will be scheduled to undergo balloon angioplasty of the right and left SFA on 2 separate sessions. I want to thank you for allowing me to participate in her care and please do not hesitate to call if you have any question or concern. Sincerely, Valerio Williamson MD MMGABI / MONTSERRAT: [id number] /
[2018-10-30 13:04] LABS: Glucose,Whole Blood 148 mg/dL (75-99)
--- NOTE | 2018-10-30 13:05 | AN ---
ANGIOGRAPHY REPORT DATE OF SERVICE: October 30, 2018. PERFORMING PHYSICIAN: Valerio Williamson MD, printing roller polisher. PROCEDURE PERFORMED: 1. An abdominal aortogram. 2. Bilateral lower extremities runoff. INDICATION: This is a pleasant 68-year-old female patient who was experiencing bilateral lower extremities intermittent claudication and underwent an arterial duplex study and that revealed severe fem-pop disease bilaterally. Because of that, a peripheral angiogram was advised. APPROACH: Right common femoral artery. COMPLICATION: None. LEVEL OF SEDATION: Moderate with sedation length of 12 minutes. PROCEDURE DESCRIPTION: After obtaining informed consent, the patient was brought to cardiac rn cardiac cath. The right common femoral artery was cannulated using micropuncture technique under ultrasound guidance, the micropuncture wire passed easily. Then I did place a 4-Maldivian sheath in the right common femoral artery. After that, I did an abdominal aortogram and bilateral lower extremities runoff using 4- Maldivian Omni Flush catheter which was initially placed at the level of the renal arteries and it was pulled into above the bifurcation of the aorta to right and left common iliac arteries. The procedure was completed without any complication. SELECTIVE PERIPHERAL ANGIOGRAM: 1. The aorta appeared to have mild disease only. 2. Renal arteries: Right and left renal arteries are patent. 3. Common iliac arteries: The right and left common iliac arteries are angiographically normal. 4. Internal iliac arteries: The right and left internals are patent. 5. External iliac arteries: The right and left external iliac arteries are patent. 6. Common femoral arteries: The right and left common femoral arteries are patent. 7. SFA: The right and left SFA are occluded from the proximal portion to the distal portion. 8. Popliteal: The right and left popliteal appeared to have mild disease only. 9. Below the knee: The arteries below the knee are poorly visualized. 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 POSTPROCEDURE MANAGEMENT: WINDOW SASH INSTALLER of the right SFA as well as left SFA on 2 separate sessions. MMODL / IJN: [id number] /
--- NOTE | 2018-10-30 15:19 | IR ---
Fluoroscopy HISTORY: Pain, claudication 1.1 minutes fluoroscopy time supplied to the referring clinician. 103 intraoperative C-arm images do cument the procedure. See dictated report from cardiology.
[2018-10-30 17:10] VITALS: BP 116/55; PULSE 68
== END ==
LOC: CATHCVL 10:41
PROVIDERS: ATTEND Internal Medicine Interventional Cardiology
DX: I77.9 Disorder of arteries and arterioles, unspecified (principal); I73.9 Peripheral vascular disease, unspecified; E78.5 Hyperlipidemia, unspecified; E78.00 Pure hypercholesterolemia, unspecified; E78.1 Pure hyperglyceridemia; I10 Essential (primary) hypertension; E11.9 Type 2 diabetes mellitus without complications; I65.23 Occlusion and stenosis of bilateral carotid arteries; F17.210 Nicotine dependence, cigarettes, uncomplicated; Z79.82 Long term (current) use of aspirin; Z79.4 Long term (current) use of insulin; Z79.899 Other long term (current) drug therapy; Z88.5 Allergy status to narcotic agent
CPT/HCPCS: 36200; 75625; 75716; C1769 ×2; J2250; J0360; J2405; J2001; Q9966 ×2

== ENCOUNTER → 2018-12-24 | Outpatient (CLI) | payer MEDICARE, OTHER ==
[2018-12-24 08:14] LABS: Potassium 4.1 mmol/L (3.5-5.1)
[2018-12-24 08:20] LABS: HCT 44.7 % (34.0-46.0); HGB 14.1 gm/dL (11.4-16.0); MCH 26.9 pg (25.0-35.0); MCHC 31.4 g/dL (31.0-37.0); MCV 85.6 fL (80.0-100.0); Mean Platelet Volume 6.5; Platelet Count 299 k/uL (150-450); RBC 5.23 m/uL (3.80-5.40); RDW 15.5 % (11.5-15.5); WBC 9.5 k/uL (3.8-10.6)
== END | disposition home or self-care (01) ==
LOC: LABPAT 07:32
PROVIDERS: ATTEND Internal Medicine Interventional Cardiology
DX: Z01.812 Encounter for preprocedural laboratory examination (principal); E78.5 Hyperlipidemia, unspecified; I73.9 Peripheral vascular disease, unspecified
CPT/HCPCS: 36415; 80051; 82565; 84520; 85027

== ENCOUNTER 2018-12-31 10:28 | Day surgery (SDC) | payer MEDICARE, OTHER ==
[~2018-12-31 10:28] MED LIST changes: -ACETAMINOPHEN TAB 325 MG TAB ONE; -ACETAMINOPHEN TAB 325 MG TAB PO STA; -ALPRAZolam 0.25 MG TAB PO PRN; -IOPAMIDOL-250 100ML BTL INTRAARTER ONE; -IOPAMIDOL-250 50ML BTL INTRAARTER ONE; -LIDOCAINE 1% INJ 10MG/ML (20 ML MDV) SQ ONE; -LISINOPRIL 20 MG TAB PO STA; -MIDAZOLAM 2 MG/2 ML VIAL IVP ONE; -ONDANSETRON 4 MG/2 ML VIAL IVP STA; -ONDANSETRON 4 MG/2 ML VIAL ONE; -SODIUM CHLORIDE 0.9% 1,000 ML IV SCH
[2018-12-31 11:11] LABS: Glucose,Whole Blood 220 mg/dL (75-99)
[2018-12-31] MEDS: INSULIN ASPART (NovoLOG) 100 UNIT/ML VIAL SQ SCH ×4 (11:15→20:30)
[2018-12-31 11:17] LABS: Basophils # (A) 0.1 k/uL (0-0.2); Basophils % (A) 1 %; Eosinophils # (A) 0.2 k/uL (0-0.7); Eosinophils % (A) 2 %; HCT 45.1 % (34.0-46.0); HGB 14.5 gm/dL (11.4-16.0); Lymphocytes # (A) 1.9 k/uL (1.0-4.8); Lymphocytes % (A) 22 %; MCH 27.2 pg (25.0-35.0); MCHC 32.1 g/dL (31.0-37.0); MCV 84.7 fL (80.0-100.0); Mean Platelet Volume 6.4; Monocytes # (A) 0.4 k/uL (0-1.0); Monocytes % (A) 5 %; Neutrophils # (A) 6.2 k/uL (1.3-7.7); Neutrophils % (A) 69 %; Platelet Count 262 k/uL (150-450); RBC 5.33 m/uL (3.80-5.40); RDW 15.7 % (11.5-15.5); WBC 8.9 k/uL (3.8-10.6)
[2018-12-31 11:31] LABS: Calcium 9.6 mg/dL (8.4-10.2); Potassium 3.8 mmol/L (3.5-5.1)
[2018-12-31] MEDS ORDERED: MIDAZOLAM 2 MG/2 ML VIAL IV ONE (13:15)
[2018-12-31] MEDS: fentaNYL (PF) 50 MCG/ML 2 ML AMP IV ONE ×3 (13:30→14:56)
[2018-12-31] MEDS ORDERED: HEPARIN SODIUM 1,000 UN/ML (10ML VL) IV ONE (13:30)
[2018-12-31] MEDS: MIDAZOLAM 2 MG/2 ML VIAL IV ONE ×2 (13:33→14:38)
[2018-12-31] MEDS ORDERED: hydrALAZINE HCL 20 MG/ML 1 ML VIAL IV ONE ×2 (14:16→14:26)
[2018-12-31] MEDS ORDERED: ENALAPRILAT 1.25 MG/ML 1 ML VIAL IV ONE (14:17)
[2018-12-31] MEDS ORDERED: MORPHINE SULFATE 4 MG/ML SYRINGE IV ONE (14:27)
[2018-12-31] MEDS ORDERED: IOPAMIDOL-300 100ML BTL INJ ONE (14:55)
[2018-12-31] MEDS ORDERED: CLOPIDOGREL 75 MG TAB PO ONE (15:02)
[2018-12-31] MEDS ORDERED: IPRATROPIUM-ALBUTEROL 3 ML NEB INHALATION PRN (15:08)
[2018-12-31] MEDS ORDERED: SODIUM CHLORIDE 0.9% 1,000 ML IV SCH (15:15)
[2018-12-31] MEDS ORDERED: SODIUM CHLORIDE 0.9% 500 ML 250 ML IV ONE (15:21)
[2018-12-31 15:29] LABS: Glucose,Whole Blood 155 mg/dL (75-99)
--- NOTE | 2018-12-31 17:15 | LTR ---
December 31, 2018 To: Dr. Barajas Re: Marilyn Moeller (1950) Dear Dr. Barajas, Ms. Marilyn Moeller underwent successful balloon angioplasty of the right femoral artery with excellent angiographic results and without any complication. I want to thank you for allowing us to participate in her care. Please do not hesitate to call if you have any question or concern. Sincerely, Valerio Williamson M.D. OSMAN / MONTSERRAT: [id number] /
[2018-12-31] MEDS ORDERED: IV FLUID CONTINUATION 1,000 ML IV ONE (17:30)
--- NOTE | 2018-12-31 18:06 | AN ---
ANGIOGRAPHY REPORT DATE OF SERVICE: December 31, 2018 PERFORMING PHYSICIAN: Valerio Williamson MD, coding machine operator. PROCEDURE PERFORMED: 1. Selective right folbg-gkx-adeh angiogram. 2. Selective right popliteal/SFA angiogram. 3. Intravascular ultrasound IVUS of the right SFA. 4. An atherectomy of the right SFA using the orbital atherectomy device from [facility]. 5. Successful balloon angioplasty of the distal right SFA using 6 x 120 mm drug-coated balloon with an excellent angiographic results and reduction of stenosis from 100% to 0%. 6. Successful stenting of the proximal and mid right SFA using 2 Zilver PTX drug- coated stent with an excellent angiographic results and reduction of stenosis from 100% to 0%. 7. Selective left common femoral artery angiogram. INDICATION: This is a 68-year-old female patient with known peripheral arterial disease and known occluded bilateral SFA, who was experiencing bilateral lower extremity intermittent claudication based on recent angiogram was brought today to undergo a LEVEL VIAL MARKER of the right SFA. APPROACH: Left common femoral artery. COMPLICATION: None. LEVEL OF SEDATION: Moderate, sedation length of 76 minutes. DETAILS OF THE PROCEDURE: After obtaining informed consent, the patient was brought to cardiac experimental machining lab manager. The left common femoral artery was cannulated using micropuncture technique, the micropuncture wire passed easily. Then I placed a 6-Danish sheath 11 cm in the left common femoral artery. At that point, I did start anticoagulation using heparin and the patient was given weight-based heparin with continuous ACT monitoring throughout the procedure. After that I did select the right profunda femoris using 5-Danish Rim catheter with 0.035 [place] Advantage wire. Subsequently I did exchange my 11 cm 6-Danish sheath into 70 cm 6-Danish Raabe sheath using the 0.035 [place] Advantage wire where the tip of the sheath was positioned in the right common femoral artery. I was able to cross the chronic total occlusion of the right SFA using an 018 gold tip glidewire with the backup support of 0.018 CXI catheter. I did selective right popliteal angiogram to prove that I was in the true lumen. After that, I did a place an 014 ViperWire preparing for a rotational atherectomy with [facility]. I did intravascular ultrasound IVUS which I proved that I was in the true lumen all the way. As I did measure the diameter of the artery, which was about 5.5 mm. After that I did atherectomy of the right SFA using the orbital atherectomy device at low, medium, and high speed. Then I did I did balloon angioplasty using 5 x 8 x 200 mm balloon. For the lesion in the right distal SFA, I did balloon angioplasty. Subsequently using 6 x 120 mm impacted drug coated balloon which was inflated under 14 atmospheres for 3 minutes with the following angiogram showing excellent angiographic results. For the mid and proximal SFA, I ended with a long area of dissection which I decided to cover with a stent. So, I placed initially 7 x 140 Zilver PTX drug-coated stent and subsequently a 7 x 80 mm Zilver PTX drug-coated stent with about 20 mm overlap between the 2 stents. After that I post dilated the whole stented segment using 6 x 200 mm balloon. The following angiogram showed excellent angiographic results and the procedure was completed without any complication. The selective right zyphr-nyf-ablc angiogram showed excellent flow below the knee with 3 vessel runoff below the knee and I was able to feel a good pulse in the dorsalis pedis. I did after that I did exchange my long sheath into short sheath using an 0.035 [place] Advantage wire. After that, I did selective left common femoral artery angiogram. The procedure was completed without any complication. POSTPROCEDURE MANAGEMENT: 1. Dual anti-platelet therapy. 2. Risk factor modifications. 3. Follow up with the patient. OSMAN / MONTSERRAT: [id number] /
[2018-12-31 18:19] VITALS: BMI 36.8
[2018-12-31] MEDS ORDERED: ALPRAZolam 0.25 MG TAB PO PRN (18:32)
[2018-12-31 20:38] LABS: Glucose,Whole Blood 335 mg/dL (75-99)
[2018-12-31] MEDS ORDERED: ATORVASTATIN 80 MG TAB PO SCH (21:00)
[2018-12-31] MEDS ORDERED: LINAGLIPTIN 5 MG TABLET PO SCH (21:00)
[2018-12-31] MEDS ORDERED: METOPROLOL TARTRATE 50 MG TAB PO SCH (21:00)
[2019-01-01 05:58] LABS: Glucose,Whole Blood 246 mg/dL (75-99)
[2019-01-01] MEDS: INSULIN ASPART (NovoLOG) 100 UNIT/ML VIAL SQ SCH (06:22)
[2019-01-01 07:08] LABS: Basophils % (A) 0 %; Eosinophils # (A) 0.1 k/uL (0-0.7); Eosinophils % (A) 1 %; HCT 44.1 % (34.0-46.0); HGB 13.7 gm/dL (11.4-16.0); Lymphocytes # (A) 1.4 k/uL (1.0-4.8); Lymphocytes % (A) 16 %; MCH 26.6 pg (25.0-35.0); MCHC 31.1 g/dL (31.0-37.0); MCV 85.4 fL (80.0-100.0); Mean Platelet Volume 7.1; Monocytes # (A) 0.5 k/uL (0-1.0); Monocytes % (A) 5 %; Neutrophils % (A) 77 %; Platelet Count 263 k/uL (150-450); RBC 5.16 m/uL (3.80-5.40); RDW 15.6 % (11.5-15.5); WBC 9.1 k/uL (3.8-10.6)
[2019-01-01 07:27] LABS: Calcium 9.1 mg/dL (8.4-10.2); Potassium 3.8 mmol/L (3.5-5.1)
[2019-01-01] MEDS ORDERED: PANTOPRAZOLE 40 MG TABLET PO SCH (07:30)
--- NOTE | 2019-01-01 07:58 | DS ---
DISCHARGE SUMMARY ADMISSION DATE: December 31, 2018 DISCHARGE DATE: January 01, 2019 BRIEF HISTORY: This is a 68-year-old female patient who underwent yesterday successful atherectomy and balloon angioplasty of the right superficial femoral artery with excellent angiographic results by the end and without any complication from left groin approach. On follow up with her today, she is doing good. She is asymptomatic. The left groin is soft and nontender and without any bruises. The patient is going to be discharged home on dual antiplatelet therapy and I will follow up with the patient in a week in the office. MMODL / WILLIANN: [id number] /
[2019-01-01 08:23] VITALS: BP 164/74; PULSE 65; RESP 16; TEMP 98.3
[2019-01-01] MEDS ORDERED: ESCITALOPRAM 10 MG TAB PO SCH (09:00)
[2019-01-01] MEDS ORDERED: LISINOPRIL 20 MG TAB PO SCH (09:00)
[2019-01-01] MEDS ORDERED: ASPIRIN 81 MG PO SCH (09:00)
[2019-01-01] MEDS ORDERED: POTASSIUM CHLORIDE ER 10 MEQ TAB.ER.PRT PO SCH (09:00)
[2019-01-01] MEDS ORDERED: FUROSEMIDE 20 MG TAB PO SCH (09:00)
--- NOTE | 2019-01-01 09:35 | IR ---
Fluoroscopy HISTORY: Peripheral vascular occlusive disease 24.6 minutes fluoroscopy time supplied to the referring clinician. 351 intraoperative C-arm images d ocument the procedure. See dictated report from cardiology.
[2019-01-12] MEDS ORDERED: ERGOCALCIFEROL 50,000 UNIT CAP PO SCH (09:00)
== END 2019-01-01 09:09 | disposition home or self-care (01) ==
LOC: CATHCVL 10:28 → 3SCARD 14:45 → CATHCVL 01-01 09:09
PROVIDERS: ATTEND Internal Medicine Interventional Cardiology
DX: E11.51 Type 2 diabetes mellitus with diabetic peripheral angiopathy without gangrene (principal); I70.213 Atherosclerosis of native arteries of extremities with intermittent claudication, bilateral legs; I70.92 Chronic total occlusion of artery of the extremities; I10 Essential (primary) hypertension; E78.5 Hyperlipidemia, unspecified; E78.00 Pure hypercholesterolemia, unspecified; F17.210 Nicotine dependence, cigarettes, uncomplicated; Z79.4 Long term (current) use of insulin; Z79.82 Long term (current) use of aspirin; Z79.899 Other long term (current) drug therapy
CPT/HCPCS: 37227; 37252; 85347; 80048 ×2; 85025 ×2; C1894 ×2; C1714; C1769 ×6; C1887; C1725 ×2; C1753; C2623; C1874 ×2; J2250; J2270; J0360; J3010; J1644; Q9967

== ENCOUNTER → 2019-01-16 | Outpatient (CLI) | payer MEDICARE, OTHER ==
[2019-01-16 12:31] LABS: HCT 40.7 % (34.0-46.0); HGB 13.6 gm/dL (11.4-16.0); MCH 27.8 pg (25.0-35.0); MCHC 33.4 g/dL (31.0-37.0); MCV 83.2 fL (80.0-100.0); Mean Platelet Volume 7.1; Platelet Count 318 k/uL (150-450); RDW 15.6 % (11.5-15.5); WBC 7.7 k/uL (3.8-10.6)
[2019-01-16 19:12] LABS: Potassium 3.3 mmol/L (3.5-5.5)
== END ==
LOC: LABWHC1 11:26
PROVIDERS: ATTEND Internal Medicine Interventional Cardiology
DX: Z01.812 Encounter for preprocedural laboratory examination (principal); I73.9 Peripheral vascular disease, unspecified
CPT/HCPCS: 36415; 80051; 82565; 84520; 85027

== ENCOUNTER 2019-01-21 07:40 | Day surgery (SDC) | payer MEDICARE, OTHER ==
[2019-01-19 11:41] VITALS: BMI 36.8
[2019-01-21] MEDS ORDERED: SODIUM CHLORIDE 0.9% 1,000 ML IV ONE (08:30)
[2019-01-21 08:36] LABS: Glucose,Whole Blood 208 mg/dL (75-99)
[2019-01-21 09:04] VITALS: RESP 18
[2019-01-21] MEDS: INSULIN ASPART (NovoLOG) 100 UNIT/ML VIAL SQ SCH ×4 (09:04→22:54)
[2019-01-21] MEDS: ALPRAZolam 0.25 MG TAB PO PRN ×2 (09:51→23:20)
[2019-01-21] MEDS ORDERED: MIDAZOLAM 2 MG/2 ML VIAL IVP ONE (10:15)
[2019-01-21] MEDS ORDERED: LIDOCAINE 1% INJ 10MG/ML (20 ML MDV) SQ ONE ×2 (10:18→11:38)
[2019-01-21] MEDS: HYDROmorphone 2 MG/ML 1 ML SYRINGE IVP ONE ×2 (10:21→11:35)
[2019-01-21] MEDS ORDERED: HEPARIN SODIUM 1,000 UN/ML (10ML VL) IV ONE ×2 (10:24→12:47)
[2019-01-21] MEDS ORDERED: SODIUM CHLORIDE 0.9% 500 ML 500 ML with niCARdipine 6.25 MG, NITROGLYCERIN-D5W PMX 0.05... IV ONE ×4 (11:30)
[2019-01-21] MEDS: NITROGLYCERIN 1000MCG/10ML SYRINGE INTRAARTER ONE ×2 (11:41→13:23)
[2019-01-21] MEDS ORDERED: IOPAMIDOL-250 100ML BTL INTRAARTER ONE (13:22)
[2019-01-21] MEDS ORDERED: niCARdipine Syringe (1,000 mcg/10 mL) INTRAARTER ONE (13:24)
[2019-01-21] MEDS ORDERED: IOPAMIDOL-250 50ML BTL INTRAARTER ONE (13:32)
[2019-01-21] MEDS ORDERED: CLOPIDOGREL 75 MG TAB PO ONE (13:32)
[2019-01-21] MEDS ORDERED: IPRATROPIUM-ALBUTEROL 3 ML NEB INHALATION PRN (13:45)
[2019-01-21] MEDS ORDERED: SODIUM CHLORIDE 0.9% 1,000 ML IV SCH (14:00)
[2019-01-21] MEDS ORDERED: CLOPIDOGREL 75 MG TAB PO STA (14:08)
--- NOTE | 2019-01-21 14:23 | LTR ---
DATE OF SERVICE: January 21, 2019 RE: Marilyn Moeller Dear Dr. Barajas; Ms Marilyn Moeller underwent successful balloon angioplasty of the left femoral artery with good angiographic results and without any complication. I want to thank you for allowing us to participate in her care and please do not hesitate to call if you have any questions or concerns. Sincerely, MD OSMAN Perez / WILLIANN: [id number] /
[2019-01-21] MEDS ORDERED: hydrALAZINE HCL 20 MG/ML 1 ML VIAL IVP STA (15:54)
[2019-01-21 17:00] LABS: Glucose,Whole Blood 206 mg/dL (75-99)
--- NOTE | 2019-01-21 17:00 | AN ---
ANGIOGRAPHY REPORT DATE OF SERVICE: January 21, 2019 PERFORMING PHYSICIAN: Valerio Williamson MD, conical mixer. PROCEDURE PERFORMED: 1. Selective left SFA/popliteal angiogram. 2. Selective left posterior tibial angiogram. 3. Successful crossing chronic total occlusion of the left superficial femoral artery. 4. Intravascular ultrasound IVUS of the left popliteal and left SFA. 5. An atherectomy of the left SFA using the CSI device. 6. Successful stenting of the left SFA using 3 drug coated stent, Zilver PTX stents with an excellent angiographic results. 7. Selective right common femoral artery angiogram. INDICATION: This is a 68-year-old female patient with history of peripheral arterial disease and known occluded bilateral superficial femoral artery on previous angiogram was experiencing bilateral lower extremity intermittent claudication. She underwent an atherectomy on balloon angioplasty of the right SFA and was brought today to undergo atherectomy and balloon angioplasty of the left SFA. APPROACH: Right common femoral artery. COMPLICATION: None. LEVEL OF SEDATION: Moderate with sedation length of 192 minutes. PROCEDURE DESCRIPTION: After obtaining an informed consent, the patient was brought to the cardiac blood bank laboratory professional. The right common femoral artery was cannulated using micropuncture technique and a micropuncture wire passed easily. Then I placed a 6-Niuean 11 cm sheath in the right common femoral artery. At that point, I did select the left profunda using 0.035 [place] Advantage wire with the backup support of a 5-Niuean Rim catheter. I did advance 035 [place] advantage to the left profunda. At that point, I did start the patient on anticoagulation with heparin with continuous ACT monitoring throughout the procedure. I did exchange my 11 cm 6-Niuean sheath into 55 cm 6-Niuean Raabe sheath using a 0.035 [place] Advantage wire. I did cross the chronic total occlusion of the left SFA. Initially I tried using 018 miller tip glidewire with the backup support of 018 CXI catheter, but I was into the subintimal space. At that point, I decided to use an 035 system. I did cross the chronic total occlusion using 035 stiff Glidewire with the backup support of 0.035 CXI catheter. The CXI was advanced all the way to the left popliteal. I suspected that I was in the subintimal space of the left popliteal segment which was open before because the reconstitution of the left SFA occlusion comes by the distal SFA. Because of that, I decided to do intravascular ultrasound. I did exchange my 0.035 wire into 0.014 ViperWire using 0.035 CXI catheter. I did intravascular ultrasound IVUS of the left popliteal and left SFA using the manual pullback and it showed that I was in the subintimal space in the left popliteal as well as left SFA. Because of that, I decided to cross the chronic total occlusion in a retrograde fashion coming from pedal approach. At that point, I did access the left posterior tibial artery using ultrasound guidance and I placed a 4-Niuean sheath in the posterior tibial artery. I did start the continuous cocktail infusion including heparin, verapamil, and nitroglycerins. Subsequently, I did cross the chronic total occlusion of the left SFA using .035 Glidewire with .035 CXI catheter. I was in the true lumen this time of the left popliteal and I was not in the false lumen. That was confirmed by ultrasound. I did snare the .035 Glidewire from the sheath in the right groin. I did after that, exchange my .035 Glidewire into 014 ViperWire using 0.035 CXI catheter. Subsequently, I did atherectomy of the left SFA using the 1.5 sarai and using the orbital atherectomy device from [facility]. At that point, I did balloon angioplasty using 5 mm balloon. The following angiogram showed dissection involving the whole left SFA which I decided to stent. Distally, I placed a 6 x 140 mm Zilver PTX. In the mid, I placed a 7 x 140 mm Zilver PTX drug-coated stent and proximally I placed a 7 x 140 Zilver PTX drug-coated stent. I post-dilated the three stents using 6 mm balloon. The final angiogram showed excellent angiographic results and the procedure was completed without any complication. I did after that exchange my long sheath into short sheath using .035 Glidewire. I did selective right common femoral artery angiogram. The procedure was completed without any complication. POSTPROCEDURE MANAGEMENT: 1. Dual anti-platelet therapy. 2. Risk factor modifications. 3. Surveillance ultrasound. 4. Follow up with the patient. MMODL / IJN: [id number] /
[2019-01-21 18:08] LABS: Glucose,Whole Blood 246 mg/dL (75-99)
[2019-01-21] MEDS ORDERED: ONDANSETRON 4 MG/2 ML VIAL ONE (18:52)
[2019-01-21] MEDS ORDERED: fentaNYL (PF) 50 MCG/ML 2 ML AMP ONE (19:27)
[2019-01-21 20:51] LABS: Glucose,Whole Blood 253 mg/dL (75-99)
[2019-01-21] MEDS ORDERED: ESCITALOPRAM 10 MG TAB PO SCH (21:00)
[2019-01-21] MEDS ORDERED: INSULIN DETEMIR (LEVEMIR) 100 UNIT/ML SYR SQ SCH (21:00)
[2019-01-21] MEDS ORDERED: ATORVASTATIN 80 MG TAB PO SCH (21:00)
[2019-01-21] MEDS: METOPROLOL TARTRATE 12.5 MG TAB PO SCH (22:54)
[2019-01-22 05:51] VITALS: PULSE 64
[2019-01-22 06:13] LABS: Glucose,Whole Blood 192 mg/dL (75-99)
[2019-01-22 06:51] LABS: Basophils % (A) 0 %; Eosinophils # (A) 0.1 k/uL (0-0.7); Eosinophils % (A) 1 %; HCT 37.5 % (34.0-46.0); HGB 11.8 gm/dL (11.4-16.0); Hypochromasia Slight; Lymphocytes # (A) 1.1 k/uL (1.0-4.8); Lymphocytes % (A) 14 %; MCH 27.6 pg (25.0-35.0); MCHC 31.4 g/dL (31.0-37.0); MCV 88.1 fL (80.0-100.0); Mean Platelet Volume 6.7; Monocytes # (A) 0.5 k/uL (0-1.0); Monocytes % (A) 6 %; Neutrophils # (A) 6.1 k/uL (1.3-7.7); Neutrophils % (A) 77 %; Platelet Count 250 k/uL (150-450); RBC 4.26 m/uL (3.80-5.40); RDW 15.7 % (11.5-15.5)
[2019-01-22 06:59] LABS: Calcium 8.6 mg/dL (8.4-10.2); Potassium 3.8 mmol/L (3.5-5.1)
[2019-01-22] MEDS ORDERED: PANTOPRAZOLE 40 MG TABLET PO SCH (07:30)
[2019-01-22] MEDS: INSULIN ASPART (NovoLOG) 100 UNIT/ML VIAL SQ SCH ×2 (08:01→08:03)
[2019-01-22] MEDS: METOPROLOL TARTRATE 12.5 MG TAB PO SCH (08:01)
[2019-01-22 08:13] VITALS: BP 147/67; TEMP 98.1
[2019-01-22] MEDS ORDERED: amLODIPine 5 MG TAB PO SCH (09:00)
[2019-01-22] MEDS ORDERED: LISINOPRIL 20 MG TAB PO SCH (09:00)
[2019-01-22] MEDS ORDERED: CLOPIDOGREL 75 MG TAB PO SCH (09:00)
[2019-01-22] MEDS ORDERED: POTASSIUM CHLORIDE ER 10 MEQ TAB.ER.PRT PO SCH (09:00)
[2019-01-22] MEDS ORDERED: PIOGLITAZONE 15 MG TAB PO SCH (09:00)
[2019-01-22] MEDS ORDERED: ASPIRIN 81 MG PO SCH (09:00)
[2019-01-22] MEDS ORDERED: LINAGLIPTIN 5 MG TABLET PO SCH (09:00)
[2019-01-22] MEDS ORDERED: FUROSEMIDE 20 MG TAB PO SCH (09:00)
--- NOTE | 2019-01-22 09:55 | DS ---
DISCHARGE SUMMARY ADMISSION DATE: January 21, 2019 DISCHARGE DATE: January 22, 2019 BRIEF HISTORY: This is a pleasant 68-year-old female patient who was admitted to the hospital yesterday and underwent successful crossing chronic total occlusion of the left SFA with successful balloon angioplasty and stenting of the left SFA with good angiographic results and without any complication. On follow up with her today, she is doing good. The right groin is soft and nontender and without any bruises. The patient is going to be discharged home on dual antiplatelet therapy and I will follow up with the patient in a week in the office. MMNEWTONL / MONTSERRAT: [id number] /
--- NOTE | 2019-01-22 11:16 | IR ---
Fluoroscopy HISTORY: Peripheral vascular occlusive disease 84.8 minutes fluoroscopy time supplied to the referring clinician. 910 intraoperative C-arm images d ocument the procedure. See dictated report from cardiology.
[2019-01-26] MEDS ORDERED: ERGOCALCIFEROL 50,000 UNIT CAP PO SCH (09:00)
== END 2019-01-22 09:06 | disposition home or self-care (01) ==
LOC: CATHCVL 07:40 → 3SCARD 18:02 → CATHCVL 01-22 09:06
PROVIDERS: ATTEND Internal Medicine Interventional Cardiology
DX: E11.51 Type 2 diabetes mellitus with diabetic peripheral angiopathy without gangrene (principal); I70.213 Atherosclerosis of native arteries of extremities with intermittent claudication, bilateral legs; I70.92 Chronic total occlusion of artery of the extremities; I10 Essential (primary) hypertension; E78.5 Hyperlipidemia, unspecified; F17.210 Nicotine dependence, cigarettes, uncomplicated; I65.23 Occlusion and stenosis of bilateral carotid arteries; E78.00 Pure hypercholesterolemia, unspecified; Z79.02 Long term (current) use of antithrombotics/antiplatelets; Z79.4 Long term (current) use of insulin; Z79.82 Long term (current) use of aspirin; Z79.899 Other long term (current) drug therapy; Z88.5 Allergy status to narcotic agent
CPT/HCPCS: 37227; 37252; 37253; 85347; 80048; 84132; 85025; C1894 ×3; C1773; C1769 ×7; C1714; C1725 ×2; C1753; C1874; J2250; J1170; J0360; J1644 ×2; J2405; J2001; J3010; Q9966 ×2

== ENCOUNTER → 2019-04-09 | Outpatient (CLI) | payer MEDICARE, OTHER ==
[2019-04-09 12:42] LABS: Hemoglobin A1C 7.8 % (4.0-6.0)
== END | disposition home or self-care (01) ==
LOC: LABWHC1 07:07
PROVIDERS: ATTEND Internal Medicine
DX: E11.65 Type 2 diabetes mellitus with hyperglycemia (principal)
CPT/HCPCS: 36415; 82043; 82570; 83036

== ENCOUNTER → 2019-04-22 | Outpatient (CLI) | payer MEDICARE, OTHER ==
--- NOTE | 2019-04-23 07:35 | BD ---
EXAMINATION TYPE: Axial Bone Density DATE OF EXAM: 04/22/2019 COMPARISON: NONE CLINICAL HISTORY: Height: 64.5 Weight: 211.8 FRAX RISK QUESTIONS: Alcohol (3 or more units per day): no Family History (Parent hip fracture): no Glucocorticoids (More than 3mos): no (Ex: prednisone, prednisolone, methylprednisolone, dexamethasone, and hydrocortisone). History of Fracture in Adulthood: no Secondary Osteoporosis: 1. Type 1 Diabetes: no 2. Hyperthyroidism: no 3. Menopause before 45: no 4. Malnutrition: no 5. Chronic liver disease: no Rheumatoid Arthritis: no Current Tobacco Use: yes RISK FACTORS HISTORY OF: Surgery to Spine/Hip(right/left)/Wrist (right/left): l-spine When: 2018 Family History of Osteoporosis: no Active: sometimes Diet low in dairy products/other sources of calcium: no Postmenopausal woman: age 51 Lost more than 2 inches in height since high school: no MEDICATIONS: diabetic meds, high bp meds, plavix, acid reflux med, baby aspirin, anxiety med Additional History: EXAM MEASUREMENTS: Bone mineral densitometry was performed using the [employer] System. Bone mineral density about the R hip (g/cm2): 0.705 Bone mineral density about the L hip (g/cm2): 0.774 T Score values are as follows: -----R Neck: -2.4 -----L Neck: -1.9 -----R Total: -1.6 -----L Total: -1.2 Bone mineral density has: decreased -12.9 % since study of: 3 Bone mineral density about the R Wrist (g/cm2): 0.547 T Score values are as follows: -----Dist. R+U: -4.2 -----Prox. R+U: -0.5 -----Radius total: -2.1 Bone mineral density : baseline IMPRESSION: Osteoporosis (T Score less than -2.5) with regards to the right radius. There is increased fracture risk and therapy is usually indicated based on age. Re-Screen 1-2 years. NOTE: T-SCORE=SD OF THE YOUNG ADULT MEAN.
== END | disposition home or self-care (01) ==
LOC: RADBDWWP 14:45
PROVIDERS: ATTEND Internal Medicine
DX: M81.0 Age-related osteoporosis without current pathological fracture (principal)
CPT/HCPCS: 77080

== ENCOUNTER 2019-07-10 19:38 | Observation (INO) | payer MEDICARE, OTHER ==
--- NOTE | 2019-07-10 20:06 | ED ---
Chest Pain HPI - General Chief Complaint: Chest Pain Stated Complaint: chest pain Time Seen by Provider: 07/10/19 19:44 Source: patient Mode of arrival: ambulatory Limitations: no limitations - History of Present Illness Initial Comments: Patient complains of chest pain. Pain is on the left side of the chest. It does not radiate anywhere. Nothing makes it better or worse. She has no nausea or vomiting. She has had a cough recently. She has no palpitations. She has no shortness of breath. She has some swelling in the legs. She denies recent long plane or car rides. - Related Data Home Medications Medication Instructions Recorded Confirmed Esomeprazole Magnesium [NexIUM] 40 mg PO DAILY 03/23/14 07/10/19 Insulin Detemir (Levemir) [Levemir] 15 unit SQ BID 03/23/14 07/10/19 Aspirin [Adult Low Dose Aspirin EC] 81 mg PO DAILY 03/26/18 07/10/19 Enalapril Maleate [Vasotec] 20 mg PO QAM 03/26/18 07/10/19 Ergocalciferol [Vitamin D2 50,000 unit PO Q14D 03/26/18 07/10/19 (DRISDOL)] Escitalopram [Lexapro] 10 mg PO HS 03/26/18 07/10/19 Ipratropium/Albuterol Sulfate 2 puff INHALATION RT-QID PRN 03/26/18 07/10/19 [Combivent Respimat Inhaler] Rosuvastatin Calcium [Crestor] 40 mg PO HS 04/03/18 07/10/19 Potassium Chloride 10 meq PO QAM 12/25/18 07/10/19 Metoprolol Tartrate [Lopressor] 12.5 mg PO BID 01/19/19 07/10/19 Pioglitazone [Actos] 15 mg PO DAILY 01/19/19 07/10/19 amLODIPine BESYLATE [Norvasc] 5 mg PO QAM 01/19/19 07/10/19 sitaGLIPtin PHOSPHATE [Januvia] 100 mg PO DAILY 01/19/19 07/10/19 Furosemide [Lasix] 10 mg PO BID 07/10/19 07/10/19 metFORMIN HCL 1,000 mg PO BID 07/10/19 07/10/19 Previous Rx's Medication Instructions Recorded Clopidogrel Bisulfate [Plavix] 75 mg PO DAILY #90 tab 01/01/19 Allergies Allergy/AdvReac Type Severity Reaction Status Date / Time codeine Allergy Chest Pain Verified 07/10/19 19:58 dogs,horses,mold Allergy RUNNY NOSE Uncoded 07/10/19 19:43 Review of Systems ROS Statement: Those systems with pertinent positive or pertinent negative responses have been documented in the HPI. ROS Other: All systems not noted in ROS Statement are negative. EKG Findings - EKG Comments: EKG Findings:: Twelve-lead EKG shows ventricular rate 90 bpm, normal [place] interval, QRS complexes are slightly wide with a right bundle branch block, t here is no ST elevation or depression, interpreted by me as normal sinus rhythm. 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 History of Any Multi-Drug Resistant Organisms: None Reported Past Surgical History: Appendectomy, Back Surgery, Cholecystectomy, Heart Catheterization, Orthopedic Surgery Additional Past Surgical History / Comment(s): Resection of an atrial myxoma/open heart for removal of tumor on the heart, arthroscopic bilateral knees, left carotid endarterectomy 2014, cyst removed from left ovary, devyn cataracts Past Anesthesia/Blood Transfusion Reactions: No Reported Reaction Past Psychological History: Anxiety, Panic Disorder Smoking Status: Current every day smoker Past Alcohol Use History: Rare Past Drug Use History: None Reported - Past Family History Mother Family Medical History: Diabetes Mellitus, Hyperlipidemia, Hypertension Sister(s) Family Medical History: Cancer General Exam Limitations: no limitations General appearance: alert, in no apparent distress Head exam: Present: atraumatic, normocephalic, normal inspection Eye exam: Present: normal appearance, PERRL, EOMI. Absent: scleral icterus, conjunctival injection, periorbital swelling ENT exam: Present: normal exam, mucous membranes moist Neck exam: Present: normal inspection. Absent: tenderness, meningismus, lymphadenopathy Respiratory exam: Present: normal lung sounds bilaterally. Absent: respiratory distress, wheezes, rales, rhonchi, stridor Cardiovascular Exam: Present: regular rate, normal rhythm, normal heart sounds. Absent: systolic murmur, diastolic murmur, rubs, gallop, clicks GI/Abdominal exam: Present: soft, normal bowel sounds. Absent: distended, tenderness, guarding, rebound, rigid Extremities exam: Present: normal inspection, full ROM, normal capillary refill, pedal edema. Absent: tenderness, joint swelling, calf tenderness Back exam: Present: normal inspection Neurological exam: Present: alert, oriented X3, CN II-XII intact Psychiatric exam: Present: normal affect, normal mood Skin exam: Present: warm, dry, intact, normal color. Absent: rash Course Vital Signs 07/10/19 07/10/19 07/10/19 19:39 19:45 20:29 Temperature 98.6 F Pulse Rate 96 82 Pulse Rate [ 81 Inspector Line ] Respiratory 22 18 Rate Blood Pressure 185/81 195/88 O2 Sat by Pulse 96 98 Oximetry Chest Pain MDM - Core Measures AMI Core Measures Followed: Yes - MDM Patient complains of chest pain. EKG showed no ST changes. Chest x-rays concerning for left-sided pneumonia. I ordered blood cultures and IV antibiotics. I will also consult cardiology. Patient will be admitted to the hospital. Disposition Clinical Impression: Pneumonia Disposition: ADMITTED IP TO THIS HOSP Condition: Fair Is patient prescribed a controlled substance at d/c from ED?: No Referrals: Jaden Barajas DO [Primary Care Provider] - 1-2 days
[2019-07-10 20:12] LABS: Anisocytosis Slight; Basophils # (A) 0.1 k/uL (0-0.2); Basophils % (A) 1 %; Eosinophils # (A) 0.2 k/uL (0-0.7); Eosinophils % (A) 2 %; HCT 37.1 % (34.0-46.0); HGB 12.5 gm/dL (11.4-16.0); Lymphocytes # (A) 1.5 k/uL (1.0-4.8); Lymphocytes % (A) 17 %; MCH 29.8 pg (25.0-35.0); MCHC 33.8 g/dL (31.0-37.0); MCV 88.3 fL (80.0-100.0); Monocytes # (A) 0.5 k/uL (0-1.0); Monocytes % (A) 6 %; Neutrophils # (A) 6.7 k/uL (1.3-7.7); Neutrophils % (A) 73 %; Platelet Count 293 k/uL (150-450); WBC 9.2 k/uL (3.8-10.6)
[2019-07-10 20:20] LABS: INR 1.1 (<1.2); Partial Thromboplastin Time 27.3 sec (22.0-30.0); Prothrombin Time 11.6 sec (9.0-12.0)
[2019-07-10 20:27] LABS: Albumin 3.7 g/dL (3.5-5.0); Calcium 8.8 mg/dL (8.4-10.2); Magnesium 1.3 mg/dL (1.6-2.3); Potassium 3.4 mmol/L (3.5-5.1); Total Bilirubin 0.5 mg/dL (0.2-1.3); Total Protein 6.5 g/dL (6.3-8.2)
[2019-07-10] MEDS ORDERED: AZITHROMYCIN 500 MG in SODIUM CHLORIDE 0.9% 250 ML IVPB STA (20:37)
[2019-07-10] MEDS ORDERED: ONDANSETRON 4 MG/2 ML VIAL IVP PRN (20:39)
[2019-07-10] MEDS ORDERED: NALOXONE 0.4 MG/ML 1 ML VIAL IV PRN (20:39)
[2019-07-10] MEDS ORDERED: TEMAZEPAM 15 MG CAP PO PRN (20:39)
[2019-07-10] MEDS ORDERED: MAG HYDROX/AL HYDROX/SIMETH 30 ML CUP PO PRN (20:39)
[2019-07-10] MEDS ORDERED: IPRATROPIUM-ALBUTEROL 3 ML NEB INHALATION PRN (20:41)
--- NOTE | 2019-07-10 20:42 | XR ---
EXAMINATION TYPE: XR chest 2V DATE OF EXAM: 07/10/2019 COMPARISON: 03/04/2017 HISTORY: Chest pain TECHNIQUE: Frontal and lateral views of the chest are obtained. FINDINGS: Heart is normal. There is some coarsening of interstitial pulmonary markings. There are st ernal wires. There are chest leads. There is slight blunting of the left costophrenic angle. IMPRESSION: Mild pleural reaction at the lateral left lung base. Increased interstitial markings sim ilar to old exam. No overt heart failure. This could relate to mild pulmonary fibrosis.
[2019-07-10] MEDS: MORPHINE SULFATE 4 MG/ML SYRINGE IV PRN (21:05)
[2019-07-10] MEDS: INSULIN DETEMIR (LEVEMIR) 100 UNIT/ML SYR SQ SCH (21:59)
[2019-07-10 22:00] LABS: Glucose,Whole Blood 224 mg/dL (75-99)
[2019-07-10] MEDS: ATORVASTATIN 80 MG TAB PO SCH (22:11)
[2019-07-10] MEDS: ESCITALOPRAM 10 MG TAB PO SCH (22:13)
[2019-07-10] MEDS: METOPROLOL TARTRATE 12.5 MG TAB PO SCH (22:14)
[2019-07-10] MEDS ORDERED: Potassium Replacement Protocol 1 EACH MISC MISCELLANE PRN (22:34)
[2019-07-10] MEDS: MAGNESIUM SULFATE-D5W PMX 1 GM in DEXTROSE/WATER 1 100ML.BAG IVPB SCH (22:56)
[2019-07-10] MEDS: POTASSIUM CHLORIDE ER 20 MEQ TAB.ER PO SCH (22:56)
[2019-07-11] MEDS: POTASSIUM CHLORIDE ER 20 MEQ TAB.ER PO SCH (00:05)
[2019-07-11] MEDS: MAGNESIUM SULFATE-D5W PMX 1 GM in DEXTROSE/WATER 1 100ML.BAG IVPB SCH (00:05)
[2019-07-11] MEDS: MORPHINE SULFATE 4 MG/ML SYRINGE IV PRN ×2 (01:30→05:38)
[2019-07-11 06:45] LABS: Glucose,Whole Blood 78 mg/dL (75-99)
[2019-07-11 08:54] LABS: African American GFR (CKD) >90 (>60 ml/min/1.73 sqM); Anion Gap 6 mmol/L; Blood Urea Nitrogen 9 mg/dL (7-17); Calcium 8.2 mg/dL (8.4-10.2); Carbon Dioxide 24 mmol/L (22-30); Chloride 112 mmol/L (98-107); Glucose 77 mg/dL (74-99); Magnesium 1.8 mg/dL (1.6-2.3); Potassium 3.9 mmol/L (3.5-5.1); Sodium 142 mmol/L (137-145)
[2019-07-11] MEDS: CLOPIDOGREL 75 MG TAB PO SCH (09:18)
[2019-07-11] MEDS: FUROSEMIDE 10 MG TAB PO SCH ×2 (09:18→17:56)
[2019-07-11] MEDS: LINAGLIPTIN 5 MG TABLET PO SCH (09:19)
[2019-07-11] MEDS: PANTOPRAZOLE 40 MG TABLET PO SCH (09:19)
[2019-07-11] MEDS: ASPIRIN 81 MG PO SCH (09:19)
[2019-07-11] MEDS: INSULIN DETEMIR (LEVEMIR) 100 UNIT/ML SYR SQ SCH ×2 (09:19→21:27)
[2019-07-11] MEDS: metFORMIN 500 MG TAB PO SCH ×2 (09:19→18:00)
[2019-07-11] MEDS: POTASSIUM CHLORIDE ER 10 MEQ TAB.ER.PRT PO SCH (09:19)
[2019-07-11] MEDS: amLODIPine 5 MG TAB PO SCH (09:19)
[2019-07-11] MEDS: LISINOPRIL 20 MG TAB PO SCH (09:19)
[2019-07-11] MEDS: PIOGLITAZONE 15 MG TAB PO SCH (09:19)
[2019-07-11 11:30] LABS: Glucose,Whole Blood 106 mg/dL (75-99)
--- NOTE | 2019-07-11 12:50 | CONS ---
CONSULTATION Mrs. Moeller is a 69-year-old female with known history of peripheral vascular disease and history of chronic tobacco use who presented with symptoms of chest discomfort. The discomfort was left-sided, on and off, lasting for a few seconds, not associated with any other symptoms. She has a known history of peripheral vascular disease and has been followed in the past by Dr. Williamson and underwent revascularization of her lower extremities. She has no prior history of obstructive coronary artery disease. She underwent myocardial perfusion imaging in February of 2018 that was reported showing no evidence of inducible ischemia. Her left ventricular systolic function has been preserved in the past. She has chronic peripheral edema, more on the left side. She has no PND, orthopnea. No syncope. She denies any significant arrhythmia. She is not very active physically because of her back and leg discomfort, although she feels that her intermittent claudication is better. Her coronary risk factors are remarkable for history of diabetes, hypertension, hyperlipidemia and smoking. MEDICATIONS: Her medications include: 1. Aspirin. 2. Plavix 75 mg daily. 3. Vasotec 20 mg daily. 4. Lexapro 10 mg daily. 5. Nexium. 6. Lasix 10 mg twice a day. 7. Insulin. 8. Lopressor 12.5 mg twice a day. 9. Actos. 10.Potassium. 11.Crestor 40 mg daily. 12.Norvasc 5 mg daily. 13.Metformin. 14.Januvia. REVIEW OF SYSTEMS: RESPIRATORY SYSTEM: She has the cough. She denies dyspnea on exertion, yet she is not active. She has been told that she has chronic obstructive lung disease and has been followed by Dr. Kennedy in the past. GI SYSTEM: No recent GI bleeding. No peptic ulcer disease. SYSTEM: No dysuria or hematuria. NERVOUS SYSTEM: No history of stroke or seizure. PHYSICAL EXAMINATION: She is a 69-year-old female, alert, oriented, in no apparent distress. Blood pressure 149/70 with a heart rate in the 70s. HEAD: Normocephalic. Eyes: Sclerae anicteric. NECK: Good carotid upstroke. No bruit. LUNGS: Decreased air exchange bilaterally with scattered rhonchi. HEART: Regular rate, rhythm. S1, S2. No S3, with systolic murmur heard at the base, 2/6. No diastolic murmur. No rub. ABDOMEN: Soft, nontender. Positive bowel sounds. No organomegaly. EXTREMITIES: Plus 1 edema, more noted on the left side. LAB DATA/IMAGING: Troponin less than 0.012 for 3 samples. BUN and creatinine 9 and 0.78. Potassium 3.9. Hemoglobin of 12.5. NT-Pro-BNP of 1220. EKG revealed a sinus mechanism, right bundle branch block, left anterior fascicular block. Chest x-ray shows no signs of failure, with mild pleural reaction at the base. IMPRESSION: 1. Chest discomfort; has atypical features for ischemic heart disease; probably noncardiac. Could be related to the history of chronic tobacco use. 2. History of peripheral vascular disease, status post revascularization of lower extremities as well as carotid surgery. 3. History of chronic tobacco use and chronic obstructive lung disease. 4. Hypertension. 5. Hyperlipidemia. 6. Diabetes mellitus. RECOMMENDATIONS: From the cardiac standpoint, I will continue her home medication. I will obtain an echocardiogram with Doppler. If there are no significant changes, then I believe she should be able to be discharged home and follow up as an outpatient with Dr. Williamson. I have encouraged her to stop smoking. Thank you for this consultation. Will follow with you. MMODL / IJN: [id number] /
[2019-07-11] MEDS: METOPROLOL TARTRATE 12.5 MG TAB PO SCH (13:38)
--- NOTE | 2019-07-11 15:19 | P.HPIM ---
History of Present Illness This is a pleasant 69 years old female with past medical history of hypertension, hyperlipidemia, diabetes mellitus, GERD, COPD, a arthritis, bilateral carotid artery disease, urinary incontinence, nicotine dependence. Patient presents because of chest pain. she sees as an outpatient for her history of COPD and smoking. She presents because of severe left-sided chest pain, nonradiating, patient says it was 10/10 when she came in yesterday and started 10:00 last night however this is down today to 4-5/10, felt like sharp at times, get worsened with coughing but not with deep breathing. Patient denies dyspnea, no significant coughing. Vitals are stable. Labs including CBC, INR, BMP and liver enzymes were unre markable. Low magnesium 1.3 square corrected up to 1.8, serial troponins are negative. EKG shows sinus rhythm, chest x-ray showing possible mild pulmonary fibrosis which is seen in old exam. In the emergency room patient was started on ceftriaxone and Zithromax. Housekeeping Associate evaluated the patient and he does not believe that its cardiac in origin Review of Systems Review of systems CONSTITUTIONAL: No fever, no malaise, no fatigue. HEENT: No recent visual problems or hearing problems. Denied any sore throat. CARDIOVASCULAR: No orthopnea, PND, no palpitations, no syncope. PULMONARY: No shortness of breath, no cough, no hemoptysis. GASTROINTESTINAL: No diarrhea, no nausea, no vomiting, no abdominal pain. Normoactive bowel sounds. NEUROLOGICAL: No headaches, no weakness, no numbness. HEMATOLOGICAL: Denies any bleeding or petechiae. GENITOURINARY: Denies any burning micturition, frequency, or urgency. MUSCULOSKELETAL/RHEUMATOLOGICAL: Denies any joint pain, swelling, or any muscle pain. ENDOCRINE: Denies any polyuria or polydipsia. 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 History of Any Multi-Drug Resistant Organisms: None Reported Past Surgical History: Appendectomy, Back Surgery, Cholecystectomy, Heart Catheterization, Orthopedic Surgery Additional Past Surgical History / Comment(s): Resection of an atrial myxoma/open heart for removal of tumor on the heart, arthroscopic bilateral knees, left carotid endarterectomy 2014, cyst removed from left ovary, devyn cataracts Past Anesthesia/Blood Transfusion Reactions: No Reported Reaction Past Psychological History: Anxiety, Panic Disorder Additional Psychological History / Comment(s): claustrophobic Smoking Status: Never smoker Past Alcohol Use History: Rare Additional Past Alcohol Use History / Comment(s): smokes 1/2 PPD, smoked since age 19 Past Drug Use History: None Reported - Past Family History Mother Family Medical History: Diabetes Mellitus, Hyperlipidemia, Hypertension Sister(s) Family Medical History: Cancer Medications and Allergies Home Medications Medication Instructions Recorded Confirmed Type Esomeprazole Magnesium [NexIUM] 40 mg PO DAILY 03/23/14 07/10/19 History Insulin Detemir (Levemir) [Levemir] 15 unit SQ BID 03/23/14 07/10/19 History Aspirin [Adult Low Dose Aspirin EC] 81 mg PO DAILY 03/26/18 07/10/19 History Enalapril Maleate [Vasotec] 20 mg PO QAM 03/26/18 07/10/19 History Ergocalciferol [Vitamin D2 50,000 unit PO Q14D 03/26/18 07/10/19 History (DRISDOL)] Escitalopram [Lexapro] 10 mg PO HS 03/26/18 07/10/19 History Ipratropium/Albuterol Sulfate 2 puff INHALATION RT-QID PRN 03/26/18 07/10/19 History [Combivent Respimat Inhaler] Rosuvastatin Calcium [Crestor] 40 mg PO HS 04/03/18 07/10/19 History Potassium Chloride 10 meq PO QAM 12/25/18 07/10/19 History Clopidogrel Bisulfate [Plavix] 75 mg PO DAILY #90 tab 01/01/19 07/10/19 Rx Metoprolol Tartrate [Lopressor] 12.5 mg PO BID 01/19/19 07/10/19 History Pioglitazone [Actos] 15 mg PO DAILY 01/19/19 07/10/19 History amLODIPine BESYLATE [Norvasc] 5 mg PO QAM 01/19/19 07/10/19 History sitaGLIPtin PHOSPHATE [Januvia] 100 mg PO DAILY 01/19/19 07/10/19 History Furosemide [Lasix] 10 mg PO BID 07/10/19 07/10/19 History metFORMIN HCL 1,000 mg PO BID 07/10/19 07/10/19 History Allergies Allergy/AdvReac Type Severity Reaction Status Date / Time codeine Allergy Chest Pain Verified 07/10/19 19:58 dogs,horses,mold Allergy RUNNY NOSE Uncoded 07/10/19 19:43 Physical Exam Vitals: Vital Signs Temp Pulse Pulse Pulse Resp BP BP 07/11/19 12:00 98.2 F 82 16 07/11/19 09:15 18 07/11/19 08:00 98.0 F 78 18 07/11/19 03:24 80 16 07/11/19 03:22 98.1 F 80 16 146/71 07/11/19 00:00 79 18 07/10/19 23:18 98.1 F 79 18 155/66 07/10/19 21:35 98.0 F 75 16 193/81 07/10/19 21:21 98.0 F 82 16 169/80 07/10/19 20:29 82 18 195/88 07/10/19 19:45 81 07/10/19 19:39 98.6 F 96 22 185/81 BP Pulse Ox 07/11/19 12:00 131/69 90 L 07/11/19 09:15 07/11/19 08:00 149/78 98 07/11/19 03:24 07/11/19 03:22 07/11/19 00:00 07/10/19 23:18 95 07/10/19 21:35 100 07/10/19 21:21 98 07/10/19 20:29 98 07/10/19 19:45 07/10/19 19:39 96 Intake and Output 07/10/19 07/11/19 07/11/19 22:59 06:59 14:59 Other: # Voids 1 Weight 95.708 kg GENERAL: The patient is alert and oriented x3, not in any acute distress. Well developed, well nourished. HEENT: Pupils are round and equally reacting to light. EOMI. No scleral icterus. No conjunctival pallor. Normocephalic, atraumatic. No pharyngeal erythema. No thyromegaly. CARDIOVASCULAR: S1 and S2 present. No murmurs, rubs, or gallops. -PULMONARY: Chest is clear to auscultation, harsh breath sounds from secretions, no wheezing or crackles. Left chest wall tenderness, no rash ABDOMEN: Soft, nontender, nondistended, normoactive bowel sounds. No palpable organomegaly. MUSCULOSKELETAL: No joint swelling or deformity. EXTREMITIES: No cyanosis, clubbing, or pedal edema. NEUROLOGICAL: Gross neurological examination did not reveal any focal deficits. SKIN: No rashes. no petechiae. Results CBC & Chem 7: 07/10/19 20:00 07/11/19 07:48 Labs: Abnormal Lab Results - Last 24 Hours (Table) 07/10/19 07/10/19 07/10/19 Range/Units 20:00 20:00 21:58 RDW 16.0 H (11.5-15.5) % Potassium 3.4 L (3.5-5.1) mmol/L Chloride (98-107) mmol/L Glucose 233 H (74-99) mg/dL POC Glucose (mg/dL) 224 H (75-99) mg/dL Calcium (8.4-10.2) mg/dL Magnesium 1.3 L (1.6-2.3) mg/dL 07/11/19 07/11/19 Range/Units 07:48 11:28 RDW (11.5-15.5) % Potassium (3.5-5.1) mmol/L Chloride 112 H (98-107) mmol/L Glucose (74-99) mg/dL POC Glucose (mg/dL) 106 H (75-99) mg/dL Calcium 8.2 L (8.4-10.2) mg/dL Magnesium (1.6-2.3) mg/dL Thrombosis Risk Factor Assmnt - Choose All That Apply Any of the Below Risk Factors Present?: Yes Each Factor Represents 1 point: Abnormal pulmonary function (COPD), Swollen legs (current) Other Risk Factors: Yes Thrombosis Risk Factor Assessment Total Risk Factor Score: 2 Thrombosis Risk Factor Assessment Level: Low Risk Assessment and Plan Assessment: Chest pain, rule out pulmonary versus musculoskeletal Hypertension Diabetes mellitus Hyperlipidemia COPD, does not seem in exacerbation Current smoker GERD History of bilateral carotid artery disease Chronic urine incontinence Plan: This is a pleasant 69 years old female who presents with left-sided 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 The patient. Patient is known to Dr. Kennedy service under going to consult him. Continue with pain management. Incentive spirometry Labs and medication were reviewed.. Continue same treatment. Continue with symptomatic treatment. Resume home medication. Monitor lytes and vitals. DVT and GI prophylaxis. Further recommendations of the clinical course of the patient DVT prophylaxis: Subcutaneous heparin GI Prophylaxis: Protonix Prognosis is guarded
--- NOTE | 2019-07-11 15:37 | P.CNPUL ---
History of Present Illness Consult date: 07/11/19 Requesting physician: Simon Noel Reason for consult: dyspnea Chief complaint: Chest pain History of present illness: Sleep pleasant 69-year-old female patient who follows with Dr. Barajas as her primary care physician. She has a history of carotid artery disease with previous left carotid endarterectomy, previous cardiac surgery for myxoma, diabetes mellitus, hypertension, hyperlipidemia, osteoarthritis, peripheral vascular disease, anxiety/panic disorder, chronic obstructive pulmonary disease, chronic and ongoing tobacco dependence. Presented here to the emergency room with complaints of chest pain. As x-ray showed mild pleural reaction to the left lung base possibly mild pulmonary fibrosis. We are consulted for the same. She is seen in consultation in the observation unit. She is awake and alert in no acute distress. She is maintaining O2 saturations in the 90s on room air. She's afebrile. Hemodynamically stable. White count 9.2. Hemoglobin 12.5. Sodium 142. Potassium 3.9. Creatinine 0.78. Troponins negative 3. ProBNP 1220. Review of Systems REVIEW OF SYSTEMS: CONSTITUTIONAL: Denies any recent significant weight loss or weight gain. EYES: Denies change in vision. EARS, NOSE, MOUTH, THROAT: Denies headaches, denies sore throat. CARDIOVASCULAR: Positive for chest pain, no palpitations or syncopal episodes. RESPIRATORY: Positive for shortness of breath, no cough, congestion or hemoptysis. GASTROINTESTINAL: Denies change in appetite, denies abdominal pain GENITOURINARY: Denies hematuria, denies infections. MUSKULOSKELETAL: Denies pain, denies swelling. INTEGUMENTARY: Denies rash, denies eczema. NEUROLOGICAL: Denies recent memory loss, no recent seizure activity. PSYCHIATRIC: Denies anxiety, denies depression. HEMATOLOGIC/LYMPHATIC: Denies anemia, denies enlarged lymph nodes. 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 History of Any Multi-Drug Resistant Organisms: None Reported Past Surgical History: Appendectomy, Back Surgery, Cholecystectomy, Heart Cathet erization, Orthopedic Surgery Additional Past Surgical History / Comment(s): Resection of an atrial myxoma/open heart for removal of tumor on the heart, arthroscopic bilateral knees, left carotid endarterectomy 2014, cyst removed from left ovary, devyn cataracts Past Anesthesia/Blood Transfusion Reactions: No Reported Reaction Past Psychological History: Anxiety, Panic Disorder Additional Psychological History / Comment(s): claustrophobic Smoking Status: Never smoker Past Alcohol Use History: Rare Additional Past Alcohol Use History / Comment(s): smokes 1/2 PPD, smoked since age 19 Past Drug Use History: None Reported - Past Family History Mother Family Medical History: Diabetes Mellitus, Hyperlipidemia, Hypertension Sister(s) Family Medical History: Cancer Medications and Allergies Home Medications Medication Instructions Recorded Confirmed Type Esomeprazole Magnesium [NexIUM] 40 mg PO DAILY 03/23/14 07/10/19 History Insulin Detemir (Levemir) [Levemir] 15 unit SQ BID 03/23/14 07/10/19 History Aspirin [Adult Low Dose Aspirin EC] 81 mg PO DAILY 03/26/18 07/10/19 History Enalapril Maleate [Vasotec] 20 mg PO QAM 03/26/18 07/10/19 History Ergocalciferol [Vitamin D2 50,000 unit PO Q14D 03/26/18 07/10/19 History (DRISDOL)] Escitalopram [Lexapro] 10 mg PO HS 03/26/18 07/10/19 History Ipratropium/Albuterol Sulfate 2 puff INHALATION RT-QID PRN 03/26/18 07/10/19 History [Combivent Respimat Inhaler] Rosuvastatin Calcium [Crestor] 40 mg PO HS 04/03/18 07/10/19 History Potassium Chloride 10 meq PO QAM 12/25/18 07/10/19 History Clopidogrel Bisulfate [Plavix] 75 mg PO DAILY #90 tab 01/01/19 07/10/19 Rx Metoprolol Tartrate [Lopressor] 12.5 mg PO BID 01/19/19 07/10/19 History Pioglitazone [Actos] 15 mg PO DAILY 01/19/19 07/10/19 History amLODIPine BESYLATE [Norvasc] 5 mg PO QAM 01/19/19 07/10/19 History sitaGLIPtin PHOSPHATE [Januvia] 100 mg PO DAILY 01/19/19 07/10/19 History Furosemide [Lasix] 10 mg PO BID 07/10/19 07/10/19 History metFORMIN HCL 1,000 mg PO BID 07/10/19 07/10/19 History Allergies Allergy/AdvReac Type Severity Reaction Status Date / Time codeine Allergy Chest Pain Verified 07/10/19 19:58 dogs,horses,mold Allergy RUNNY NOSE Uncoded 07/10/19 19:43 Physical Exam Vitals: Vital Signs Temp Pulse Pulse Pulse Resp BP BP 07/11/19 12:00 98.2 F 82 16 07/11/19 09:15 18 07/11/19 08:00 98.0 F 78 18 07/11/19 03:24 80 16 07/11/19 03:22 98.1 F 80 16 146/71 07/11/19 00:00 79 18 07/10/19 23:18 98.1 F 79 18 155/66 07/10/19 21:35 98.0 F 75 16 193/81 07/10/19 21:21 98.0 F 82 16 169/80 07/10/19 20:29 82 18 195/88 07/10/19 19:45 81 07/10/19 19:39 98.6 F 96 22 185/81 BP Pulse Ox 07/11/19 12:00 131/69 90 L 07/11/19 09:15 07/11/19 08:00 149/78 98 07/11/19 03:24 07/11/19 03:22 07/11/19 00:00 07/10/19 23:18 95 07/10/19 21:35 100 07/10/19 21:21 98 07/10/19 20:29 98 07/10/19 19:45 07/10/19 19:39 96 Intake and Output 07/11/19 07/11/19 07/11/19 06:59 14:59 22:59 Other: # Voids 1 GENERAL EXAM: Alert, active, comfortable in no apparent distress. On room air. HEAD: Normocephalic. EYES: Normal reaction of pupils, equal size. NOSE: Clear with pink turbinates. THROAT: No erythema or exudates. NECK: No masses, no JVD. CHEST: No chest wall deformity. LUNGS: Equal air entry with no crackles, wheeze, rhonchi or dullness. CVS: S1 and S2 normal with no audible murmur, regular rhythm. ABDOMEN: No hepatosplenomegaly, normal bowel sounds, no guarding or rigidity. SPINE: No scoliosis or deformity SKIN: No rashes CENTRAL NERVOUS SYSTEM: No focal deficits, tone is normal in all 4 extremities. EXTREMITIES: There is no peripheral edema. No clubbing, no cyanosis. Peripheral pulses are intact. Results - Laboratory Findings CBC and BMP: 07/10/19 20:00 07/11/19 07:48 PT/INR, D-dimer PT 11.6 sec (9.0-12.0) 07/10/19 20:00 INR 1.1 (<1.2) 07/10/19 20:00 Abnormal lab findings: Abnormal Labs 07/10/19 07/10/19 07/10/19 20:00 20:00 21:58 RDW 16.0 H Potassium 3.4 L Chloride Glucose 233 H POC Glucose (mg/dL) 224 H Calcium Magnesium 1.3 L 07/11/19 07/11/19 07:48 11:28 RDW Potassium Chloride 112 H Glucose POC Glucose (mg/dL) 106 H Calcium 8.2 L Magnesium - Diagnostic Findings Chest x-ray: image reviewed Assessment and Plan Assessment: Impression: #1 Atypical chest pain. Acute coronary syndrome ruled out. #2 Chronic obstructive pulmonary disease, currently inactive and stable. #3 Chronic and ongoing tobacco dependence. #4 Hypertension. #5 Hyperlipidemia. #6 Diabetes mellitus. #7 Carotid artery disease with previous bilateral carotid endarterectomy. #8 Peripheral vascular disease. #9 History of myxoma status post resection. Plan: The patient was seen and evaluated by Dr. Kennedy. Chest x-ray and labs reviewed. No acute pulmonary process. We will do a computed tomography scan of the chest to rule out any other significant abnormalities. If this is normal she is able to be discharged tonight. Upon discharge she should follow-up in our office for full pulmonary function testing and to evaluate the severity of her COPD and make recommendations regarding maintenance medications. She is also educated regarding the importance of complete smoking cessation. I, the cosigning physician, performed a history & physical examination of the patient. Lungs sounds are clear. Maintaining good O2 saturations in the 90s on room air. I discussed the assessment and plan of care with my nurse practitioner, Zenaida Houser. I attest to the above note as dictated by her. Time with Patient: Greater than 30
[2019-07-11] MEDS: traMADol 50 MG TAB PO PRN ×2 (15:51→21:32)
--- NOTE | 2019-07-11 16:01 | ECHOF ---
Referral Reason:cp MEASUREMENTS -------- HEIGHT: 165.1 cm WEIGHT: 95.7 kg BP: RVIDd: 4.2 cm (< 3.3) IVSd: 1.4 cm (0.6 - 1.1) LVIDd: 5.1 cm (3.9 - 5.3) LVPWd: 1.3 cm (0.6 - 1.1) IVSs: 1.7 cm LVIDs: 3.6 cm LVPWs: 1.8 cm LA Diam: 4.3 cm (2.7 - 3.8) LAESV Index (A-L): 33.90 ml/m Ao Diam: 2.7 cm (2.0 - 3.7) AV Cusp: 1.9 cm (1.5 - 2.6) LA Diam: 3.7 cm (2.7 - 3.8) MV EXCURSION: 18.048 mm (> 18.000) MV EF SLOPE: 69 mm/s (70 - 150) EPSS: 0.3 cm MV E Giancarlo: 0.63 m/s MV DecT: 245 ms MV A Giancarlo: 0.87 m/s MV E/A Ratio: 0.73 RAP: 5.00 mmHg RVSP: 50.02 mmHg FINDINGS -------- Sinus rhythm. This was a technically adequate study. The left ventricular size is normal. There is moderate concentric left ventricular hypertrophy. O verall left ventricular systolic function is normal with, an EF between 55 - 60 %. The right ventricle is moderate to severely enlarged. LA is midly dilated 29-33ml/m2. The right atrial size is normal. The aortic valve is trileaflet, and appears structurally normal. No aortic stenosis or regurgitation. The mitral valve is normal. Mild mitral regurgitation is present. Moderate tricuspid regurgitation present. There is moderate pulmonary hypertension. The right gayle tricular systolic pressure, as measured by Doppler, is 50.02mmHg. There is no pulmonic regurgitation present. The aortic root size is normal. There is no pericardial effusion. CONCLUSIONS -------- 1. Sinus rhythm. 2. This was a technically adequate study. 3. The left ventricular size is normal. 4. There is moderate concentric left ventricular hypertrophy. 5. Overall left ventricular systolic function is normal with, an EF between 55 - 60 %. 6. 7. The right ventricle is moderate to severely enlarged. 8. LA is midly dilated 29-33ml/m2. 9. The aortic valve is trileaflet, and appears structurally normal. No aortic stenosis or regurgitati on. 10. Mild mitral regurgitation is present. 11. Moderate tricuspid regurgitation present. 12. There is moderate pulmonary hypertension. 13. There is no pulmonic regurgitation present. 14. The aortic root size is normal. 15. There is no pericardial effusion. STAFF NURSE ANESTHETIST: Bonnie Hernandez RDCS
[2019-07-11] MEDS ORDERED: RX INFO: IV CONTRAST WAS GIVEN 1 EACH MISC MISCELLANE PRN (16:31)
[2019-07-11 16:38] LABS: Glucose,Whole Blood 142 mg/dL (75-99)
[2019-07-11 16:40] VITALS: RESP 18
[2019-07-11] MEDS: HEPARIN SODIUM,PORCINE 5,000 UNIT/ML 1 ML VIAL SQ SCH ×2 (17:55→23:23)
[2019-07-11] MEDS: LIDOCAINE 5% PATCH TOPICAL SCH (18:00)
[2019-07-11 20:19] LABS: Glucose,Whole Blood 151 mg/dL (75-99)
[2019-07-11] MEDS: ESCITALOPRAM 10 MG TAB PO SCH (21:27)
[2019-07-11] MEDS: ATORVASTATIN 80 MG TAB PO SCH (21:27)
[2019-07-11] MEDS: METOPROLOL TARTRATE 25 MG TAB PO SCH (21:27)
--- NOTE | 2019-07-11 22:15 | CT ---
EXAMINATION TYPE: CT chest w con DATE OF EXAM: 07/11/2019 COMPARISON: None HISTORY: Chest pain. CT DLP: 524.9 mGycm, Automated exposure control for dose reduction was used. CONTRAST: Performed injected with 100ml mL of Isovue 300. TECHNIQUE: Axial images were obtained at 5 mm thick sections. Reconstructed images are reviewed on [employer] computer in the coronal plane. FINDINGS: Portion of the thyroid visualized is normal. Small bilateral pleural effusions are present. Very minimal pericardial effusion appears to be presen t. There is some nonspecific scattered infiltrate within the mid lungs bilaterally. No consolidation to suggest pneumonia is evident. No enlarged mediastinal or hilar adenopathy is evident. The ascending aorta diameter at the level o f the main pulmonary artery is 3.6 cm. The main pulmonary artery diameter at the bifurcation is 3.0 cm. Coronary artery calcification is present. Vascular calcification is within the aorta. Limited CT sections are obtained through the upper abdomen. Abdomen is essentially unremarkable. IMPRESSIONS: 1. 1. Small bilateral pleural effusions. 2. Very minimal pericardial effusion may be present. 3. Some minimal subsegmental atelectasis may be within the mid lungs on lung windows.
[2019-07-12 06:59] LABS: Glucose,Whole Blood 86 mg/dL (75-99)
[2019-07-12] MEDS: metFORMIN 500 MG TAB PO SCH (07:38)
[2019-07-12 08:07] VITALS: PULSE 57; TEMP 97.9
[2019-07-12] MEDS: HEPARIN SODIUM,PORCINE 5,000 UNIT/ML 1 ML VIAL SQ SCH (08:08)
[2019-07-12] MEDS: LISINOPRIL 20 MG TAB PO SCH (08:08)
[2019-07-12] MEDS: METOPROLOL TARTRATE 25 MG TAB PO SCH (08:08)
[2019-07-12] MEDS: amLODIPine 5 MG TAB PO SCH (08:08)
[2019-07-12] MEDS: ASPIRIN 81 MG PO SCH (08:08)
[2019-07-12] MEDS: LINAGLIPTIN 5 MG TABLET PO SCH (08:09)
[2019-07-12] MEDS: PIOGLITAZONE 15 MG TAB PO SCH (08:09)
[2019-07-12] MEDS: INSULIN DETEMIR (LEVEMIR) 100 UNIT/ML SYR SQ SCH (08:09)
[2019-07-12] MEDS: PANTOPRAZOLE 40 MG TABLET PO SCH (08:09)
[2019-07-12] MEDS: LIDOCAINE 5% PATCH TOPICAL SCH (08:09)
[2019-07-12] MEDS: CLOPIDOGREL 75 MG TAB PO SCH (08:09)
[2019-07-12] MEDS: POTASSIUM CHLORIDE ER 10 MEQ TAB.ER.PRT PO SCH (08:09)
[2019-07-12] MEDS: FUROSEMIDE 10 MG TAB PO SCH (08:09)
--- NOTE | 2019-07-12 09:26 | PN ---
PROGRESS NOTE Mrs. Moeller is a 69-year-old female with a known history of peripheral vascular disease, chronic tobacco use, who presented with chest discomfort. She had a myocardial perfusion imaging in February of last year that revealed no evidence of inducible ischemia. She is feeling better today. Her discomfort is better. She denies any dizziness or palpitation. She denies any nausea. She was seen by Dr. Kennedy. She continues to be at this time on aspirin, Lipitor 80 mg daily, Plavix 75 mg daily, Lexapro 10 mg daily, Lasix 10 mg twice a day, Tradjenta, lisinopril 40 mg daily, metformin 1 gram twice a day, Actos 15 mg daily. PHYSICAL EXAMINATION: Blood pressure 147/70 with a heart rate in the 50s. Lungs with decreased air exchange, no wheezes. HEART: Regular rate and rhythm S1, S2. No S3 with systolic murmur. No diastolic murmur. ABDOMEN: Soft, nontender. Extremities: No significant edema. LAB DATA: She had an echocardiogram yesterday that revealed preserved left ventricular size and systolic function with dilated right ventricle with moderate tricuspid regurgitation and pulmonary hypertension. She had a CT scan of the chest that showed small bilateral pleural effusion. IMPRESSION: 1. Chest discomfort atypical for ischemic heart disease. 2. Chronic tobacco use with right-sided enlargement. 3. History of carotid disease status post carotid endarterectomy. 4. Chronic tobacco use. 5. Diabetes. 6. Hypertension. 7. Hyperlipidemia. 8. Status post myxoma resection. RECOMMENDATIONS: From the cardiac standpoint, she is stable. I would expect she should be able to be discharged home today and follow up as an outpatient with Dr. Williamson. MMODL / IJN: [id number] /
--- NOTE | 2019-07-12 10:17 | P.PN ---
Subjective Progress Note Date: 07/12/19 pleasant 69-year-old female patient who follows with Dr. Barajas as her prima ry care physician. She has a history of carotid artery disease with previous left carotid endarterectomy, previous cardiac surgery for myxoma, diabetes mellitus, hypertension, hyperlipidemia, osteoarthritis, peripheral vascular disease, anxiety/panic disorder, chronic obstructive pulmonary disease, chronic and ongoing tobacco dependence. Presented here to the emergency room with complaints of chest pain. As x-ray showed mild pleural reaction to the left lung base possibly mild pulmonary fibrosis. We are consulted for the same. She is seen in consultation in the observation unit. She is awake and alert in no acute distress. She is maintaining O2 saturations in the 90s on room air. She 's afebrile. Hemodynamically stable. White count 9.2. Hemoglobin 12.5. Sodium 142. Potassium 3.9. Creatinine 0.78. Troponins negative 3. ProBNP 1220. On 07/12/2090 I'm seeing this patient for a follow-up. The patient is doing well. No new complaints. CAT scan of the chest was completed yesterday and showed a very tiny pleural effusion. This is a nonspecific finding. No other abnormalities noted. As such, the patient was reassured. Insulin the screen was negative. Smoking cessation counseling was done. The pain itself seems to be noncardiac in nature Objective - Vital Signs Vital signs: Vital Signs Temp 97.9 F 07/12/19 08:00 Pulse 57 L 07/12/19 08:00 Resp 18 07/12/19 08:00 BP 170/79 07/12/19 08:00 Pulse Ox 92 L 07/12/19 08:00 Intake & Output 07/11/19 07/12/19 07/12/19 18:59 06:59 18:59 Intake Total 200 Balance 200 Intake: Oral 200 Other: Voiding Method Toilet Toilet # Voids 1 - Exam GENERAL EXAM: Alert, active, comfortable in no apparent distress. On room air. HEAD: Normocephalic. EYES: Normal reaction of pupils, equal size. NOSE: Clear with pink turbinates. THROAT: No erythema or exudates. NECK: No masses, no JVD. CHEST: No chest wall deformity. LUNGS: Equal air entry with no crackles, wheeze, rhonchi or dullness. CVS: S1 and S2 normal with no audible murmur, regular rhythm. ABDOMEN: No hepatosplenomegaly, normal bowel sounds, no guarding or rigidity. SPINE: No scoliosis or deformity SKIN: No rashes CENTRAL NERVOUS SYSTEM: No focal deficits, tone is normal in all 4 extremities. EXTREMITIES: There is no peripheral edema. No clubbing, no cyanosis. Peripheral pulses are intact. - Labs CBC & Chem 7: 07/10/19 20:00 07/11/19 07:48 Labs: Abnormal Lab Results - Last 24 Hours (Table) 07/11/19 07/11/19 07/11/19 Range/Units 11:28 16:34 20:07 POC Glucose (mg/dL) 106 H 142 H 151 H (75-99) mg/dL Microbiology - Last 24 Hours (Table) 07/10/19 21:00 Blood Culture - Preliminary Blood No Growth after 24 hours Assessment and Plan Plan: #1 Atypical chest pain. Acute coronary syndrome ruled out. #2 Chronic obstructive pulmonary disease, currently inactive and stable. #3 Chronic and ongoing tobacco dependence. #4 Hypertension. #5 Hyperlipidemia. #6 Diabetes mellitus. #7 Carotid artery disease with previous bilateral carotid endarterectomy. #8 Peripheral vascular disease. #9 History of myxoma status post resection. PLAN The pain nonpulmonary nature. Chest the chest is negative. The pain could be potentially skeletal. She may have an underlying COPD. Continue Combivent rescue inhaler. Outpatient PFT. Smoking cessation counseling.
[2019-07-12 11:34] LABS: Glucose,Whole Blood 194 mg/dL (75-99)
--- NOTE | 2019-07-12 11:42 | P.DS ---
Providers Date of admission: 07/10/19 20:40 Attending physician: Yanira Domínguez Consults: 07/10/19 20:40 Consult Physician Routine Consulting Provider: Rudi Agosto Consult Reason/Comments: chest pain Do you want consulting provider notified?: Yes 07/11/19 15:16 Consult Physician Routine Consulting Provider: Ariadne Kennedy Consult Reason/Comments: chest pain in copd pt Do you want consulting provider notified?: Yes [facility] care [facility] Hospital Course: Diagnoses upon discharge Chest pain, mostly musculoskeletal, cardiac and pulmonary causes are ruled out Hypertension Diabetes mellitus Hyperlipidemia COPD, does not seem in exacerbation Current smoker GERD History of bilateral carotid artery disease Chronic urine incontinence Hospital course: This is a pleasant 69 years old female with past medical history of hypertension, hyperlipidemia, diabetes mellitus, GERD, COPD, a arthritis, bilateral carotid artery disease, urinary incontinence, nicotine dependence. Patient presents because of chest pain. she sees as an outpatient for her history of COPD and smoking. Patient presents with left-sided chest pain and tenderness that is significantly improved on the day of discharge with pain medicine and Ultr[employer], credit office manager and sociocultural anthropology professor evaluated the patient, and cardiac and pulmonary causes have been ruled out, echo showed normal ejection fraction, CTA of the chest was reviewed On the day of discharge patient denies chest pain, no dyspnea, no change in urine or bowel habits. No fever Patient was cleared for discharge by pulmonary and cardiology teams Problems and management plan were discussed with the patient and he verbalized understanding and acceptance Patient was found stable and can be discharged home however he needs follow-up as an outpatient. Patient was instructed to follow up with PCP within one week and patient agrees. Patient also was instructed to follow up with her credit office manager and sociocultural anthropology professor in 7-10 days, pulmonary function test is recommended as an outpatient Gen: patient is a AAOx3, no distress CVS: S1-S2, RRR, no murmur Lungs: B/L CTA, no wheezing Abdomen: soft, no distention, no tenderness, positive bowel sounds Extremity: no leg edema or induration Time spent more than 35 minutes Patient Condition at Discharge: Fair Plan - Discharge Summary Discharge Rx Participant: No New Discharge Prescriptions: No Action Insulin Detemir (Levemir) [Levemir] 15 unit SQ BID Esomeprazole Magnesium [NexIUM] 40 mg PO DAILY Enalapril Maleate [Vasotec] 20 mg PO QAM Ergocalciferol [Vitamin D2 (DRISDOL)] 50,000 unit PO Q14D Escitalopram [Lexapro] 10 mg PO HS Aspirin [Adult Low Dose Aspirin EC] 81 mg PO DAILY Ipratropium/Albuterol Sulfate [Combivent Respimat Inhaler] 2 puff INHALATION RT-QID PRN PRN Reason: Shortness Of Breath Rosuvastatin Calcium [Crestor] 40 mg PO HS Potassium Chloride 10 meq PO QAM Clopidogrel Bisulfate [Plavix] 75 mg PO DAILY #90 tab amLODIPine BESYLATE [Norvasc] 5 mg PO QAM Metoprolol Tartrate [Lopressor] 12.5 mg PO BID Pioglitazone [Actos] 15 mg PO DAILY sitaGLIPtin PHOSPHATE [Januvia] 100 mg PO DAILY metFORMIN HCL 1,000 mg PO BID Furosemide [Lasix] 10 mg PO BID Discharge Medication List Esomeprazole Magnesium [NexIUM] 40 mg PO DAILY 03/23/14 [History] Insulin Detemir (Levemir) [Levemir] 15 unit SQ BID 03/23/14 [History] Aspirin [Adult Low Dose Aspirin EC] 81 mg PO DAILY 03/26/18 [History] Enalapril Maleate [Vasotec] 20 mg PO QAM 03/26/18 [History] Ergocalciferol [Vitamin D2 (DRISDOL)] 50,000 unit PO Q14D 03/26/18 [History] Escitalopram [Lexapro] 10 mg PO HS 03/26/18 [History] Ipratropium/Albuterol Sulfate [Combivent Respimat Inhaler] 2 puff INHALATION RT- QID PRN 03/26/18 [History] Rosuvastatin Calcium [Crestor] 40 mg PO HS 04/03/18 [History] Potassium Chloride 10 meq PO QAM 12/25/18 [History] Clopidogrel Bisulfate [Plavix] 75 mg PO DAILY #90 tab 01/01/19 [Rx] Metoprolol Tartrate [Lopressor] 12.5 mg PO BID 01/19/19 [History] Pioglitazone [Actos] 15 mg PO DAILY 01/19/19 [History] amLODIPine BESYLATE [Norvasc] 5 mg PO QAM 01/19/19 [History] sitaGLIPtin PHOSPHATE [Januvia] 100 mg PO DAILY 01/19/19 [History] Furosemide [Lasix] 10 mg PO BID 07/10/19 [History] metFORMIN HCL 1,000 mg PO BID 07/10/19 [History] Follow up Appointment(s)/Referral(s): Valerio Williamson MD [STAFF PHYSICIAN] - 10 Days Jaden Barajas DO [Primary Care Provider] - 1-2 days Ariadne Kennedy MD [STAFF PHYSICIAN] - 1 Week Patient Instructions/Handouts: COPD (Chronic Obstructive Pulmonary Disease) (GEN)
[2019-07-12 12:09] VITALS: BP 161/81
[2019-07-14] MEDS ORDERED: ERGOCALCIFEROL 50,000 UNIT CAP PO SCH (09:00)
== END 2019-07-12 12:11 | disposition home or self-care (01) ==
LOC: EC 19:38 → 1SOBS 20:40
PROVIDERS: ADMIT Internal Medicine; ATTEND Internal Medicine
DX: R07.89 Other chest pain (principal); I10 Essential (primary) hypertension; E78.5 Hyperlipidemia, unspecified; J44.9 Chronic obstructive pulmonary disease, unspecified; K21.9 Gastro-esophageal reflux disease without esophagitis; R32 Unspecified urinary incontinence; M19.90 Unspecified osteoarthritis, unspecified site; I73.9 Peripheral vascular disease, unspecified; F41.0 Panic disorder [episodic paroxysmal anxiety]; E11.51 Type 2 diabetes mellitus with diabetic peripheral angiopathy without gangrene; I65.23 Occlusion and stenosis of bilateral carotid arteries; F40.240 Claustrophobia; F17.210 Nicotine dependence, cigarettes, uncomplicated; M79.89 Other specified soft tissue disorders; R60.0 Localized edema; Z79.899 Other long term (current) drug therapy; Z79.02 Long term (current) use of antithrombotics/antiplatelets; Z79.84 Long term (current) use of oral hypoglycemic drugs; Z90.49 Acquired absence of other specified parts of digestive tract; Z79.4 Long term (current) use of insulin; Z79.82 Long term (current) use of aspirin; J30.81 Allergic rhinitis due to animal (cat) (dog) hair and dander; Z88.5 Allergy status to narcotic agent; Z91.048 Other nonmedicinal substance allergy status; Z83.3 Family history of diabetes mellitus; Z82.49 Family history of ischemic heart disease and other diseases of the circulatory system; Z80.9 Family history of malignant neoplasm, unspecified
CPT/HCPCS: 96365 ×2; 96366; 96367; 96372 ×2; 96376; 96375; 99285; 36415; 93005; 93306; 83880; 80053; 80048; 83735 ×2; 84484 ×2; 85025; 85610; 85730; 87040; 87502; 71046; 71260; G0378 ×3; J2270 ×2; J1644 ×2; J0456; J0696; J3475 ×2; Q9967

== ENCOUNTER 2019-07-24 17:36 | Inpatient (IN) | payer MEDICARE, OTHER ==
[2019-07-24] MEDS ORDERED: SODIUM CHLORIDE 0.9% 500 ML 500 ML IV STA (18:48)
[2019-07-24 19:02] LABS: Basophils # (A) 0.1 k/uL (0-0.2); Basophils % (A) 2 %; Eosinophils # (A) 0.2 k/uL (0-0.7); Eosinophils % (A) 2 %; HCT 39.6 % (34.0-46.0); HGB 12.1 gm/dL (11.4-16.0); Lymphocytes # (A) 1.9 k/uL (1.0-4.8); Lymphocytes % (A) 21 %; MCH 27.9 pg (25.0-35.0); MCHC 30.6 g/dL (31.0-37.0); MCV 91.3 fL (80.0-100.0); Mean Platelet Volume 6.5; Monocytes # (A) 0.6 k/uL (0-1.0); Monocytes % (A) 6 %; Neutrophils # (A) 5.9 k/uL (1.3-7.7); Neutrophils % (A) 67 %; Platelet Count 324 k/uL (150-450); RBC 4.33 m/uL (3.80-5.40); RDW 15.4 % (11.5-15.5); WBC 8.8 k/uL (3.8-10.6)
--- NOTE | 2019-07-24 19:07 | ED ---
Arrhythmia/Palpitations HPI - General Chief Complaint: Arrhythmia/Palpitations Stated Complaint: Chest pain, High BP Time Seen by Provider: 07/24/19 18:22 Source: patient Mode of arrival: ambulatory Limitations: no limitations - History of Present Illness Initial Comments: 69-year-old female patient presents to the emergency department today for evaluation of palpitations, dizziness, and nausea. Symptoms started around 3 PM this afternoon. Patient states that she feels like her heart is racing. She does report a history of hypertension. States she did have a myxoma removed from the heart but denies any history of dysrhythmia, CAD, or IL. Patient denies any chest pain or shortness of breath with this. States that she is feeling weak and worn out. Has been nauseated and has had dry heaves. Denies any cough or congestion. Denies abdominal pain. Patient denies any recent rash, fever, chills, diarrhea, constipation, back pain, numbness, tingling, hematuria, dysuria, urinary urgency, urinary frequency, headache, visual changes, or any other complaints. - Related Data Home Medications Medication Instructions Recorded Confirmed Esomeprazole Magnesium [NexIUM] 40 mg PO DAILY 03/23/14 07/10/19 Insulin Detemir (Levemir) [Levemir] 15 unit SQ BID 03/23/14 07/10/19 Aspirin [Adult Low Dose Aspirin EC] 81 mg PO DAILY 03/26/18 07/10/19 Enalapril Maleate [Vasotec] 20 mg PO QAM 03/26/18 07/10/19 Ergocalciferol [Vitamin D2 50,000 unit PO Q14D 03/26/18 07/10/19 (DRISDOL)] Escitalopram [Lexapro] 10 mg PO HS 03/26/18 07/10/19 Ipratropium/Albuterol Sulfate 2 puff INHALATION RT-QID PRN 03/26/18 07/10/19 [Combivent Respimat Inhaler] Rosuvastatin Calcium [Crestor] 40 mg PO HS 04/03/18 07/10/19 Potassium Chloride 10 meq PO QAM 12/25/18 07/10/19 Metoprolol Tartrate [Lopressor] 12.5 mg PO BID 01/19/19 07/10/19 Pioglitazone [Actos] 15 mg PO DAILY 01/19/19 07/10/19 amLODIPine BESYLATE [Norvasc] 5 mg PO QAM 01/19/19 07/10/19 sitaGLIPtin PHOSPHATE [Januvia] 100 mg PO DAILY 01/19/19 07/10/19 Furosemide [Lasix] 10 mg PO BID 07/10/19 07/10/19 metFORMIN HCL 1,000 mg PO BID 07/10/19 07/10/19 Previous Rx's Medication Instructions Recorded Clopidogrel Bisulfate [Plavix] 75 mg PO DAILY #90 tab 01/01/19 traMADol HCL [Ultram] 50 mg PO Q8HR PRN 2 Days #6 tab 07/12/19 Allergies Allergy/AdvReac Type Severity Reaction Status Date / Time codeine Allergy Chest Pain Verified 07/24/19 17:44 dogs,horses,mold Allergy RUNNY NOSE Uncoded 07/24/19 17:44 Review of Systems ROS Statement: Those systems with pertinent positive or pertinent negative responses have been documented in the HPI. ROS Other: All systems not noted in ROS Statement are negative. 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 History of Any Multi-Drug Resistant Organisms: None Reported Past Surgical History: Appendectomy, Back Surgery, Cholecystectomy, Heart Catheterization, Orthopedic Surgery Additional Past Surgical History / Comment(s): Resection of an atrial myxoma/open heart for removal of tumor on the heart, arthroscopic bilateral knees, left carotid endarterectomy 2014, cyst removed from left ovary, devyn cataracts Past Anesthesia/Blood Transfusion Reactions: No Reported Reaction Past Psychological History: Anxiety, Panic Disorder Smoking Status: Current every day smoker Past Alcohol Use History: Rare Past Drug Use History: None Reported - Past Family History Mother Family Medical History: Diabetes Mellitus, Hyperlipidemia, Hypertension Sister(s) Family Medical History: Cancer General Exam Limitations: no limitations General appearance: alert, in no apparent distress, other (Physical well-devel oped, well-nourished adult female patient in no acute distress. Vital signs upon presentation are temperature 97.4F, pulse 135, respirations 22, blood pressure 153/94, pulse ox 99% on room air.) Eye exam: Present: normal appearance, PERRL, EOMI. Absent: scleral icterus, c onjunctival injection, periorbital swelling ENT exam: Present: normal exam, normal oropharynx, mucous membranes moist Respiratory exam: Present: normal lung sounds bilaterally. Absent: respiratory distress, wheezes, rales, rhonchi, stridor Cardiovascular Exam: Present: normal rhythm, tachycardia, normal heart sounds. Absent: regular rate, systolic murmur, diastolic murmur, rubs, gallop, clicks GI/Abdominal exam: Present: soft, normal bowel sounds. Absent: distended, tenderness, guarding, rebound, rigid Neurological exam: Present: alert, oriented X3, CN II-XII intact Psychiatric exam: Present: normal affect, normal mood Skin exam: Present: warm, dry, intact, normal color. Absent: rash Course Vital Signs 07/24/19 07/24/19 07/24/19 17:42 18:29 20:12 Temperature 97.4 F L Pulse Rate 135 H 134 H 131 H Respiratory 22 18 18 Rate Blood Pressure 153/94 126/94 139/89 O2 Sat by Pulse 99 99 95 Oximetry EKG Findings - EKG Comments: EKG Findings:: EKG obtained at 1754 shows sinus tachycardia with a ventricular rate of 134, QRS duration 156, QT 378, QTC 564. There is a right bundle branch block. Medical Decision Making - Medical Decision Making 69-year-old female patient presents to the emergency department today for evaluation of tachycardia, weakness, dizziness. Patient is also been having dry heaves. Physical examination is relatively unremarkable. Abdomen is soft and nontender. Lungs are clear to auscultation with good air movement. Patient is tachycardic in the 130s with oxygen saturation between 93-95% on room air. Labs reviewed and did reveal elevated d-dimer at 0.88. Acute kidney injury with BUN of18, creatinine 1.49. Glucose is 218. Magnesium is low at 1.1. Did start magnesium replacement protocol. IV fluids were given for dehydration. With acute kidney injury we will withhold CT angiography, start heparin, and perform VQ scan in the morning. Cardiology will be consulted pending VQ results. I did discuss findings, results, plan with patient and family, they are agreeable. [facility] GOTTI is accepting for Dr. Domínguez. - Lab Data Result diagrams: 07/24/19 18:02 07/24/19 18:02 Lab Results 07/24/19 07/24/19 07/24/19 Range/Units 18:02 18:02 18:02 WBC 8.8 (3.8-10.6) k/uL RBC 4.33 (3.80-5.40) m/uL Hgb 12.1 (11.4-16.0) gm/dL Hct 39.6 (34.0-46.0) % MCV 91.3 (80.0-100.0) fL MCH 27.9 (25.0-35.0) pg MCHC 30.6 L (31.0-37.0) g/dL RDW 15.4 (11.5-15.5) % Plt Count 324 (150-450) k/uL Neutrophils % 67 % Lymphocytes % 21 % Monocytes % 6 % Eosinophils % 2 % Basophils % 2 % Neutrophils # 5.9 (1.3-7.7) k/uL Lymphocytes # 1.9 (1.0-4.8) k/uL Monocytes # 0.6 (0-1.0) k/uL Eosinophils # 0.2 (0-0.7) k/uL Basophils # 0.1 (0-0.2) k/uL PT 12.0 (9.0-12.0) sec INR 1.2 H (<1.2) APTT 25.6 (22.0-30.0) sec D-Dimer 0.88 H (<0.60) mg/L FEU Sodium 140 (137-145) mmol/L Potassium 3.9 (3.5-5.1) mmol/L Chloride 103 (98-107) mmol/L Carbon Dioxide 27 (22-30) mmol/L Anion Gap 10 mmol/L BUN 18 H (7-17) mg/dL Creatinine 1.49 H (0.52-1.04) mg/dL Est GFR (CKD-EPI)AfAm 42 (>60 ml/min/1.73 sqM) Est GFR (CKD-EPI)NonAf 36 (>60 ml/min/1.73 sqM) Glucose 218 H (74-99) mg/dL Calcium 9.8 (8.4-10.2) mg/dL Magnesium 1.1 L (1.6-2.3) mg/dL Total Bilirubin 0.4 (0.2-1.3) mg/dL AST 19 (14-36) U/L ALT 15 (9-52) U/L Alkaline Phosphatase 66 (38-126) U/L Troponin I (0.000-0.034) ng/mL Total Protein 6.5 (6.3-8.2) g/dL Albumin 3.8 (3.5-5.0) g/dL TSH 2.840 (0.465-4.680) mIU/L Urine Color Urine Appearance (Clear) Urine pH (5.0-8.0) Ur Specific [place] (1.001-1.035) Urine Protein (Negative) Urine Glucose (UA) (Negative) Urine Ketones (Negative) Urine Blood (Negative) Urine Nitrite (Negative) Urine Bilirubin (Negative) Urine Urobilinogen (<2.0) mg/dL Ur Leukocyte Esterase (Negative) Urine RBC (0-5) /hpf Urine WBC (0-5) /hpf Ur Squamous Epith Cells (0-4) /hpf Hyaline Casts (0-2) /lpf Urine Mucus (None) /hpf 07/24/19 07/24/19 Range/Units 18:02 18:54 WBC (3.8-10.6) k/uL RBC (3.80-5.40) m/uL Hgb (11.4-16.0) gm/dL Hct (34.0-46.0) % MCV (80.0-100.0) fL MCH (25.0-35.0) pg MCHC (31.0-37.0) g/dL RDW (11.5-15.5) % Plt Count (150-450) k/uL Neutrophils % % Lymphocytes % % Monocytes % % Eosinophils % % Basophils % % Neutrophils # (1.3-7.7) k/uL Lymphocytes # (1.0-4.8) k/uL Monocytes # (0-1.0) k/uL Eosinophils # (0-0.7) k/uL Basophils # (0-0.2) k/uL PT (9.0-12.0) sec INR (<1.2) APTT (22.0-30.0) sec D-Dimer (<0.60) mg/L FEU Sodium (137-145) mmol/L Potassium (3.5-5.1) mmol/L Chloride (98-107) mmol/L Carbon Dioxide (22-30) mmol/L Anion Gap mmol/L BUN (7-17) mg/dL Creatinine (0.52-1.04) mg/dL Est GFR (CKD-EPI)AfAm (>60 ml/min/1.73 sqM) Est GFR (CKD-EPI)NonAf (>60 ml/min/1.73 sqM) Glucose (74-99) mg/dL Calcium (8.4-10.2) mg/dL Magnesium (1.6-2.3) mg/dL Total Bilirubin (0.2-1.3) mg/dL AST (14-36) U/L ALT (9-52) U/L Alkaline Phosphatase (38-126) U/L Troponin I 0.013 (0.000-0.034) ng/mL Total Protein (6.3-8.2) g/dL Albumin (3.5-5.0) g/dL TSH (0.465-4.680) mIU/L Urine Color Yellow Urine Appearance Clear (Clear) Urine pH 5.5 (5.0-8.0) Ur Specific [place] 1.018 (1.001-1.035) Urine Protein 2+ H (Negative) Urine Glucose (UA) 1+ H (Negative) Urine Ketones Negative (Negative) Urine Blood Trace H (Negative) Urine Nitrite Negative (Negative) Urine Bilirubin Negative (Negative) Urine Urobilinogen 2.0 (<2.0) mg/dL Ur Leukocyte Esterase Trace H (Negative) Urine RBC <1 (0-5) /hpf Urine WBC 2 (0-5) /hpf Ur Squamous Epith Cells <1 (0-4) /hpf Hyaline Casts 7 H (0-2) /lpf Urine Mucus Rare H (None) /hpf - Radiology Data Radiology results: report reviewed, image reviewed Two-view x-ray of the chest is obtained. Report was reviewed in its entirety. Impression by Dr. Keita shows no active cardiopulmonary disease. No adverse change. Disposition Clinical Impression: Tachycardia, Elevated d-dimer, Hypomagnesemia Disposition: ADMITTED IP TO THIS [facility] Condition: Serious Referrals: Jaden Barajas DO [Primary Care Provider] - 1-2 days Decision to Admit Reason: Admit from EC Decision Date: 07/24/19 Decision Time: 20:47
[2019-07-24 19:09] LABS: Albumin 3.8 g/dL (3.5-5.0); Calcium 9.8 mg/dL (8.4-10.2); Magnesium 1.1 mg/dL (1.6-2.3); Potassium 3.9 mmol/L (3.5-5.1); Total Bilirubin 0.4 mg/dL (0.2-1.3); Total Protein 6.5 g/dL (6.3-8.2)
--- NOTE | 2019-07-24 19:10 | XR ---
EXAMINATION TYPE: XR chest 2V DATE OF EXAM: 07/24/2019 COMPARISON: 07/10/2019 HISTORY: Chest pain TECHNIQUE: Frontal and lateral views of the chest are obtained. FINDINGS: Heart is normal. Lungs are clear of consolidation. Thoracic aorta is atheromatous. There a re sternal wires. Costophrenic angles are clear. Bony thorax is intact. IMPRESSION: No active cardiopulmonary disease. No adverse change.
[2019-07-24 19:16] LABS: Appearance,Urine Clear (Clear); Bilirubin,Urine Negative (Negative); Blood,Urine Trace (Negative); Color,Urine Yellow; Glucose,Urine (UA) 1+ (Negative); Hyaline Casts,Urine 7 /lpf (0-2); Ketones,Urine Negative (Negative); Leukocyte Esterase,Urine Trace (Negative); Mucus,Urine Rare /hpf; Nitrite,Urine Negative (Negative); PH, Urine 5.5 (5.0-8.0); Protein,Urine 2+ (Negative); RBC,Urine <1 /hpf (0-5); Specific Gravity,Urine 1.018 (1.001-1.035); Squamous Epithelial Cell,Urine <1 /hpf (0-4); WBC,Urine 2 /hpf (0-5)
[2019-07-24 19:26] LABS: INR 1.2 (<1.2); Partial Thromboplastin Time 25.6 sec (22.0-30.0)
[2019-07-24 19:36] LABS: D-Dimer 0.88 mg/L FEU (<0.60)
[2019-07-24] MEDS ORDERED: Magnesium Replacement Protocol 1 EACH MISC MISCELLANE PRN (19:41)
[2019-07-24] MEDS ORDERED: SODIUM CHLORIDE 0.9% 1,000 ML IV ONE (19:41)
[2019-07-24] MEDS: MAGNESIUM SULFATE-D5W PMX 1 GM in DEXTROSE/WATER 1 100ML.BAG IVPB SCH ×3 (20:11→23:26)
[2019-07-24] MEDS ORDERED: NALOXONE 0.4 MG/ML 1 ML VIAL IV PRN (20:44)
[2019-07-24] MEDS ORDERED: HEPARIN SODIUM,PORCINE 10,000 UNIT/ML 1 ML VIAL IV ONE (20:46)
[2019-07-24] MEDS ORDERED: HEPARIN SODIUM,PORCINE 5,000 UNIT/ML 1 ML VIAL IV PRN (20:46)
[2019-07-24] MEDS: HEPARIN SOD,PORK IN 0.45% NACL 25,000 UNIT in 0.45% NACL 1 250ML.BAG IV SCH (21:25)
[2019-07-24] MEDS: SODIUM CHLORIDE 0.9% 1,000 ML IV SCH (21:32)
[2019-07-24] MEDS ORDERED: LABETALOL 5 MG/ML VIAL MDV IVP STA (22:06)
[2019-07-24] MEDS ORDERED: MORPHINE SULFATE 4 MG/ML SYRINGE IVP STA (22:07)
[2019-07-24] MEDS ORDERED: MORPHINE SULFATE 4 MG/ML SYRINGE IVP PRN (22:07)
[2019-07-24] MEDS ORDERED: ADENOSINE 3 MG/ML 2 ML VIAL IVP STA ×2 (22:40→23:13)
--- NOTE | 2019-07-24 23:23 | ED ---
Medical Decision Making - Medical Decision Making Case management was reluctant to admit patient to the floor due to elevated heart rate. I did discuss the case with the on-call international logistics coordinator Dr. Mccray. He agreed that patient's tachycardia appeared to be atrial in nature and recommended giving dose of adenosine to determine underlying rhythm. Dr. Feliz my attending was at bedside during administration. We were able to determine that atrial flutter was the most likely underlying cause for tachycardia. We will start cardizem for rate control. Patient tolerated the procedure well. She will be transferred to the selective care unit. - Lab Data Result diagrams: 07/24/19 18:02 07/24/19 18:02 Lab Results 07/24/19 07/24/19 07/24/19 Range/Units 18:02 18:02 18:02 WBC 8.8 (3.8-10.6) k/uL RBC 4.33 (3.80-5.40) m/uL Hgb 12.1 (11.4-16.0) gm/dL Hct 39.6 (34.0-46.0) % MCV 91.3 (80.0-100.0) fL MCH 27.9 (25.0-35.0) pg MCHC 30.6 L (31.0-37.0) g/dL RDW 15.4 (11.5-15.5) % Plt Count 324 (150-450) k/uL Neutrophils % 67 % Lymphocytes % 21 % Monocytes % 6 % Eosinophils % 2 % Basophils % 2 % Neutrophils # 5.9 (1.3-7.7) k/uL Lymphocytes # 1.9 (1.0-4.8) k/uL Monocytes # 0.6 (0-1.0) k/uL Eosinophils # 0.2 (0-0.7) k/uL Basophils # 0.1 (0-0.2) k/uL PT 12.0 (9.0-12.0) sec INR 1.2 H (<1.2) APTT 25.6 (22.0-30.0) sec D-Dimer 0.88 H (<0.60) mg/L FEU Sodium 140 (137-145) mmol/L Potassium 3.9 (3.5-5.1) mmol/L Chloride 103 (98-107) mmol/L Carbon Dioxide 27 (22-30) mmol/L Anion Gap 10 mmol/L BUN 18 H (7-17) mg/dL Creatinine 1.49 H (0.52-1.04) mg/dL Est GFR (CKD-EPI)AfAm 42 (>60 ml/min/1.73 sqM) Est GFR (CKD-EPI)NonAf 36 (>60 ml/min/1.73 sqM) Glucose 218 H (74-99) mg/dL Calcium 9.8 (8.4-10.2) mg/dL Magnesium 1.1 L (1.6-2.3) mg/dL Total Bilirubin 0.4 (0.2-1.3) mg/dL AST 19 (14-36) U/L ALT 15 (9-52) U/L Alkaline Phosphatase 66 (38-126) U/L Troponin I (0.000-0.034) ng/mL Total Protein 6.5 (6.3-8.2) g/dL Albumin 3.8 (3.5-5.0) g/dL TSH 2.840 (0.465-4.680) mIU/L Urine Color Urine Appearance (Clear) Urine pH (5.0-8.0) Ur Specific [place] (1.001-1.035) Urine Protein (Negative) Urine Glucose (UA) (Negative) Urine Ketones (Negative) Urine Blood (Negative) Urine Nitrite (Negative) Urine Bilirubin (Negative) Urine Urobilinogen (<2.0) mg/dL Ur Leukocyte Esterase (Negative) Urine RBC (0-5) /hpf Urine WBC (0-5) /hpf Ur Squamous Epith Cells (0-4) /hpf Hyaline Casts (0-2) /lpf Urine Mucus (None) /hpf 07/24/19 07/24/19 Range/Units 18:02 18:54 WBC (3.8-10.6) k/uL RBC (3.80-5.40) m/uL Hgb (11.4-16.0) gm/dL Hct (34.0-46.0) % MCV (80.0-100.0) fL MCH (25.0-35.0) pg MCHC (31.0-37.0) g/dL RDW (11.5-15.5) % Plt Count (150-450) k/uL Neutrophils % % Lymphocytes % % Monocytes % % Eosinophils % % Basophils % % Neutrophils # (1.3-7.7) k/uL Lymphocytes # (1.0-4.8) k/uL Monocytes # (0-1.0) k/uL Eosinophils # (0-0.7) k/uL Basophils # (0-0.2) k/uL PT (9.0-12.0) sec INR (<1.2) APTT (22.0-30.0) sec D-Dimer (<0.60) mg/L FEU Sodium (137-145) mmol/L Potassium (3.5-5.1) mmol/L Chloride (98-107) mmol/L Carbon Dioxide (22-30) mmol/L Anion Gap mmol/L BUN (7-17) mg/dL Creatinine (0.52-1.04) mg/dL Est GFR (CKD-EPI)AfAm (>60 ml/min/1.73 sqM) Est GFR (CKD-EPI)NonAf (>60 ml/min/1.73 sqM) Glucose (74-99) mg/dL Calcium (8.4-10.2) mg/dL Magnesium (1.6-2.3) mg/dL Total Bilirubin (0.2-1.3) mg/dL AST (14-36) U/L ALT (9-52) U/L Alkaline Phosphatase (38-126) U/L Troponin I 0.013 (0.000-0.034) ng/mL Total Protein (6.3-8.2) g/dL Albumin (3.5-5.0) g/dL TSH (0.465-4.680) mIU/L Urine Color Yellow Urine Appearance Clear (Clear) Urine pH 5.5 (5.0-8.0) Ur Specific [place] 1.018 (1.001-1.035) Urine Protein 2+ H (Negative) Urine Glucose (UA) 1+ H (Negative) Urine Ketones Negative (Negative) Urine Blood Trace H (Negative) Urine Nitrite Negative (Negative) Urine Bilirubin Negative (Negative) Urine Urobilinogen 2.0 (<2.0) mg/dL Ur Leukocyte Esterase Trace H (Negative) Urine RBC <1 (0-5) /hpf Urine WBC 2 (0-5) /hpf Ur Squamous Epith Cells <1 (0-4) /hpf Hyaline Casts 7 H (0-2) /lpf Urine Mucus Rare H (None) /hpf Disposition Clinical Impression: Tachycardia, Elevated d-dimer, Hypomagnesemia, Atrial flutter Disposition: ADMITTED IP TO THIS HOSP Condition: Serious
[2019-07-24] MEDS: DILTIAZEM 125 MG in SODIUM CHLORIDE 0.9% 100 ML IV SCH (23:55)
[2019-07-25 00:44] VITALS: BMI 34.7
[2019-07-25 02:52] LABS: Basophils # (A) 0.1 k/uL (0-0.2); Basophils % (A) 1 %; Eosinophils # (A) 0.2 k/uL (0-0.7); Eosinophils % (A) 2 %; HCT 35.3 % (34.0-46.0); HGB 11.4 gm/dL (11.4-16.0); Hypochromasia Slight; Lymphocytes # (A) 2.3 k/uL (1.0-4.8); Lymphocytes % (A) 22 %; MCH 29.6 pg (25.0-35.0); MCHC 32.2 g/dL (31.0-37.0); Mean Platelet Volume 5.9; Monocytes # (A) 0.5 k/uL (0-1.0); Monocytes % (A) 5 %; Neutrophils # (A) 7.1 k/uL (1.3-7.7); Neutrophils % (A) 69 %; Platelet Count 294 k/uL (150-450); RBC 3.84 m/uL (3.80-5.40); RDW 15.1 % (11.5-15.5); WBC 10.3 k/uL (3.8-10.6)
[2019-07-25 03:16] LABS: Albumin 3.2 g/dL (3.5-5.0); Calcium 8.7 mg/dL (8.4-10.2); Total Bilirubin 0.4 mg/dL (0.2-1.3); Total Protein 5.7 g/dL (6.3-8.2)
[2019-07-25 03:18] LABS: Potassium 3.4 mmol/L (3.5-5.1)
[2019-07-25] MEDS: NITROGLYCERIN SL TABS 0.4 MG TAB SUBLINGUAL PRN ×4 (04:58→11:05)
[2019-07-25 06:31] LABS: Glucose,Whole Blood 250 mg/dL (75-99)
[2019-07-25] MEDS: INSULIN ASPART (NovoLOG) 100 UNIT/ML VIAL SQ SCH ×4 (06:32→21:59)
[2019-07-25] MEDS: INSULIN DETEMIR (LEVEMIR) 100 UNIT/ML SYR SQ SCH ×2 (06:32→20:55)
--- NOTE | 2019-07-25 08:43 | NM ---
EXAMINATION TYPE: NM pul vent and perfuse DATE OF EXAM: 07/25/2019 COMPARISON: NONE HISTORY: TECHNIQUE: Utilizing inhalation of 67.2 mCi Tc 99m DTPA aerosol and intravenous injection of 5.1 mCi of Tc 99m MAA, ventilation and perfusion images are acquired post injection in multiple projections. FINDINGS: Normal radiotracer distribution is noted in the lungs. There is no evidence of mismatched defects. IMPRESSION: This examination is low probability for pulmonary embolus.
[2019-07-25] MEDS ORDERED: POTASSIUM CHLORIDE ER 20 MEQ TAB.ER PO STA (08:50)
[2019-07-25] MEDS ORDERED: DEXTROSE 5% IN WATER 100 ML with AMIODARONE 150 MG IV ONE (08:51)
[2019-07-25] MEDS ORDERED: AMIODARONE 360 MG in DEXTROSE 5% IN WATER 200 ML IV ONE ×2 (08:51)
--- NOTE | 2019-07-25 09:15 | P.CRDCN ---
History of Present Illness Consult date: 07/25/19 Chief complaint: Chest pain History of present illness: This is a pleasant 69-year-old female patient with a past medical history significant for myxoma removal in the past, peripheral arterial disease and status post bilateral SFA angioplasty, hypertension, and dyslipidemia, as well as diabetes, presented to the hospital with symptoms of dizziness and lightheadedness and feeling weak as well. The patient was in her usual state of health yesterday when she was doing shopping with her and suddenly she felt dizzy. She felt her heart was racing up and she felt palpitation as well. She was brought to the emergency room where she was found to be in atrial flutter with RVR and she received adenosine twice but that did not help and she continues to be in atrial flutter. Currently she is on Cardizem IV. She was in the hospital last month when she presented with a chest discomfort and ruled out for acute coronary event. Yesterday and early this morning she was experiencing chest discomfort as well. Currently she is chest pain-free. She continues to be in atrial flutter with a heart rate around 120 bpm on Cardizem IV at 10 mg per hour. She is on metoprolol at home which I'm going to resume. Also she is on heparin IV. The EKG showed atrial flutter with 1-1 block. The cardiac enzymes first set came in to be unremarkable. Getting Multiple risk factors, I did recommend proceeding with coronary angiogram. I would perform coronary angiogram on her in the next 24 hours. Meanwhile I am going to add amiodarone to the Cardizem and drip hopefully we can convert the patient to normal sinus rhythm. Continue heparin IV at this point. Continue antiplatelet. We'll obtain an echocardiogram was Doppler. And we'll continue following up with the patient. 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 History of Any Multi-Drug Resistant Organisms: None Reported Past Surgical History: Appendectomy, Back Surgery, Cholecystectomy, Heart Catheterization, Orthopedic Surgery Additional Past Surgical History / Comment(s): Resection of an atrial m yxoma/open heart for removal of tumor on the heart 2007, arthroscopic bilateral knees, left carotid endarterectomy 2014, cyst removed from left ovary, devyn cataracts Past Anesthesia/Blood Transfusion Reactions: No Reported Reaction Past Psychological History: Anxiety, Panic Disorder Additional Psychological History / Comment(s): claustrophobic Smoking Status: Current every day smoker Past Alcohol Use History: Rare Additional Past Alcohol Use History / Comment(s): smokes 1/2 PPD, smoked since age 19 Past Drug Use History: None Reported - Past Family History Mother Family Medical History: Diabetes Mellitus, Hyperlipidemia, Hypertension Sister(s) Family Medical History: Cancer Medications and Allergies Home Medications Medication Instructions Recorded Confirmed Type Esomeprazole Magnesium [NexIUM] 40 mg PO DAILY 03/23/14 07/24/19 History Insulin Detemir (Levemir) [Levemir] 15 unit SQ BID 03/23/14 07/24/19 History Aspirin [Adult Low Dose Aspirin EC] 81 mg PO DAILY 03/26/18 07/24/19 History Enalapril Maleate [Vasotec] 20 mg PO QAM 03/26/18 07/24/19 History Ergocalciferol [Vitamin D2 50,000 unit PO Q14D 03/26/18 07/24/19 History (DRISDOL)] Escitalopram [Lexapro] 10 mg PO HS 03/26/18 07/24/19 History Ipratropium/Albuterol Sulfate 2 puff INHALATION RT-QID PRN 03/26/18 07/24/19 History [Combivent Respimat Inhaler] Rosuvastatin Calcium [Crestor] 40 mg PO HS 04/03/18 07/24/19 History Potassium Chloride 10 meq PO QAM 12/25/18 07/24/19 History Clopidogrel Bisulfate [Plavix] 75 mg PO DAILY #90 tab 01/01/19 07/24/19 Rx Metoprolol Tartrate [Lopressor] 25 mg PO BID 01/19/19 07/24/19 History Pioglitazone [Actos] 15 mg PO DAILY 01/19/19 07/24/19 History amLODIPine BESYLATE [Norvasc] 5 mg PO QAM 01/19/19 07/24/19 History sitaGLIPtin PHOSPHATE [Januvia] 100 mg PO DAILY 01/19/19 07/24/19 History Furosemide [Lasix] 20 mg PO DAILY 07/24/19 07/24/19 History metFORMIN HCL [Glucophage] 500 mg PO BID 07/24/19 07/24/19 History Allergies Allergy/AdvReac Type Severity Reaction Status Date / Time codeine Allergy Chest Pain Verified 07/24/19 20:57 dogs,horses,mold Allergy RUNNY NOSE Uncoded 07/24/19 17:44 Physical Exam Vitals: Vital Signs Temp Pulse Pulse Resp BP BP Pulse Ox 07/25/19 08:50 97.9 F 134 H 18 117/61 96 07/25/19 05:08 130 H 118/69 07/25/19 04:58 129 H 130/75 07/25/19 03:20 98.5 F 131 H 16 119/71 97 07/25/19 00:32 98.4 F 133 H 16 124/68 92 L 07/25/19 00:07 98.4 F 130 H 16 137/81 96 07/24/19 23:55 130 H 16 136/100 97 07/24/19 21:32 130 H 16 139/86 97 07/24/19 20:12 131 H 18 139/89 95 07/24/19 18:29 134 H 18 126/94 99 07/24/19 17:42 97.4 F L 135 H 22 153/94 99 Intake and Output 07/24/19 07/25/19 07/25/19 22:59 06:59 14:59 Intake Total 125.726 100 Output Total 400 Balance -274.274 100 Intake: Intake, IV Titration 125.726 Amount Diltiazem 125 mg In 25.333 Sodium Chloride 0.9% 100 ml @ 5 MG/HR 5 mls/hr IV .Q24H [facility] Rx#:[id number] Heparin Sod,Pork in 0.45% 100.393 NaCl 25,000 unit In 0.45 % NaCl 1 250ml.bag @ 18 UNITS/KG/HR 17.064 mls/hr IV .[id number] [facility] Rx#: [id number] Oral 100 Output: Urine 400 Other: # Voids 1 Weight 94.801 kg - Constitutional General appearance: no acute distress - Respiratory Respiratory: bilateral: CTA - Cardiovascular Rhythm: regular Heart sounds: normal: S1, S2 Results 07/25/19 02:31 07/25/19 02:31 Cardiac Enzymes 07/24/19 07/24/19 07/25/19 Range/Units 18:02 18:02 02:31 AST 19 41 H (14-36) U/L Troponin I 0.013 (0.000-0.034) ng/mL 07/25/19 Range/Units 05:56 AST (14-36) U/L Troponin I 0.018 (0.000-0.034) ng/mL Coagulation 07/24/19 07/25/19 Range/Units 18:02 02:31 PT 12.0 (9.0-12.0) sec APTT 25.6 121.0 H* (22.0-30.0) sec CBC 07/24/19 07/25/19 Range/Units 18:02 02:31 WBC 8.8 10.3 (3.8-10.6) k/uL RBC 4.33 3.84 (3.80-5.40) m/uL Hgb 12.1 11.4 (11.4-16.0) gm/dL Hct 39.6 35.3 (34.0-46.0) % Plt Count 324 294 (150-450) k/uL Comprehensive Metabolic Panel 07/24/19 07/25/19 Range/Units 18:02 02:31 Sodium 140 139 (137-145) mmol/L Potassium 3.9 3.4 L (3.5-5.1) mmol/L Chloride 103 105 (98-107) mmol/L Carbon Dioxide 27 26 (22-30) mmol/L BUN 18 H 15 (7-17) mg/dL Creatinine 1.49 H 1.31 H (0.52-1.04) mg/dL Glucose 218 H 267 H (74-99) mg/dL Calcium 9.8 8.7 (8.4-10.2) mg/dL AST 19 41 H (14-36) U/L ALT 15 39 (9-52) U/L Alkaline Phosphatase 66 72 (38-126) U/L Total Protein 6.5 5.7 L (6.3-8.2) g/dL Albumin 3.8 3.2 L (3.5-5.0) g/dL Current Medications Generic Name Dose Route Start Last Admin Trade Name Freq PRN Reason Stop Dose Admin Heparin Sodium (Porcine) 0 unit 07/24/19 20:46 Heparin IV PER PROTOCOL PRN Low PTT Protocol Sodium Chloride 1,000 mls @ 20 mls/hr 07/24/19 20:45 07/24/19 21:32 Saline 0.9% IV 20 mls/hr .Q24H [facility] Administration Heparin Sodium/Sodium Chloride 250 mls @ 17.064 mls/hr 07/24/19 21:00 07/25/19 03:18 25,000 unit/ Sodium Chloride IV 15 units/kg/hr .[id number] [facility] 14.22 mls/hr Titration Protocol 18 UNITS/KG/HR Diltiazem HCl 125 mg/ Sodium 125 mls @ 10 mls/hr 07/24/19 23:30 07/25/19 04:59 Chloride IV 10 mg/hr .[id number] [facility] 10 mls/hr Infusion 10 MG/HR Amiodarone HCl 360 mg/ 200 mls @ 33.333 mls/hr 07/25/19 08:51 Dextrose/Water IV 07/25/19 14:50 .Q6H ONE Protocol 1 MG/MIN Amiodarone HCl 300 mg/ 250 mls @ 25 mls/hr 07/25/19 14:51 Dextrose/Water IV 07/26/19 08:50 .Q10H [facility] Protocol 0.5 MG/MIN Insulin Aspart 0 unit 07/25/19 07:30 07/25/19 06:32 Novolog SQ 4 unit ACHS [facility] Administration Protocol Insulin Detemir 15 unit 07/25/19 07:00 07/25/19 06:32 Levemir SQ 15 unit 0700,2100 [facility] Administration Metoprolol Tartrate 25 mg 07/25/19 09:00 Lopressor PO BID [facility] Miscellaneous Information 1 each 07/24/19 19:41 Magnesium Per Protocol MISCELLANE DAILY PRN Per Protocol Protocol Morphine Sulfate 4 mg 07/25/19 04:51 Morphine Sulfate (Inj) IVP Q4HR PRN Pain Naloxone HCl 0.2 mg 07/24/19 20:44 Narcan IV Q2M PRN Opioid Reversal Nitroglycerin 0.4 mg 07/25/19 04:48 07/25/19 05:08 Nitrostat SUBLINGUAL 0.4 mg Q5M PRN Administration Chest Pain Intake and Output 07/24/19 07/25/19 07/25/19 22:59 06:59 14:59 Intake Total 125.726 100 Output Total 400 Balance -274.274 100 Intake: Intake, IV Titration 125.726 Amount Diltiazem 125 mg In 25.333 Sodium Chloride 0.9% 100 ml @ 5 MG/HR 5 mls/hr IV .Q24H [facility] Rx#:[id number] Heparin Sod,Pork in 0.45% 100.393 NaCl 25,000 unit In 0.45 % NaCl 1 250ml.bag @ 18 UNITS/KG/HR 17.064 mls/hr IV .[id number] [facility] Rx#: [id number] Oral 100 Output: Urine 400 Other: # Voids 1 Weight 94.801 kg 07/25/19 02:31 07/25/19 02:31 Assessment and Plan Assessment: Assessment #1 intermittent episodes of chest discomfort concerning for angina #2 atrial flutter with variable block #3 severe peripheral arterial disease #4 hypertension #5 dyslipidemia #6 diabetes type 2 Plan #1 continue Cardizem IV #2 start the patient on amiodarone IV #3 start the patient on metoprolol be on #4 rule out acute coronary event #5 obtain an echocardiogram was Doppler #6 proceed with coronary angiogram Thank you for allowing us participate in her care and we will continue following up with the patient
[2019-07-25] MEDS: METOPROLOL TARTRATE 25 MG TAB PO SCH ×2 (09:28→22:04)
[2019-07-25 12:17] LABS: Glucose,Whole Blood 163 mg/dL (75-99)
[2019-07-25] MEDS ORDERED: LIDOCAINE 1% INJ 10MG/ML (20 ML MDV) ONE (12:32)
[2019-07-25] MEDS ORDERED: VERAPAMIL 2.5 MG/ML 2 ML AMP ONE (12:32)
[2019-07-25] MEDS ORDERED: HEPARIN SODIUM 1,000 UN/ML (10ML VL) ONE (12:32)
[2019-07-25] MEDS ORDERED: MIDAZOLAM 2 MG/2 ML VIAL IVP ONE (12:49)
[2019-07-25] MEDS ORDERED: LIDOCAINE 1% INJ 10MG/ML (20 ML MDV) SQ ONE (12:49)
[2019-07-25] MEDS ORDERED: HYDROmorphone 1 MG/ML 1 ML SYRINGE ONE (12:59)
[2019-07-25] MEDS ORDERED: HYDROmorphone 1 MG/ML 1 ML SYRINGE IVP ONE (13:04)
[2019-07-25] MEDS ORDERED: BIVALIRUDIN BOLUS 250 MG/50 ML IV ONE (13:20)
[2019-07-25] MEDS ORDERED: BIVALIRUDIN 250 MG VIAL IV ONE (13:25)
[2019-07-25] MEDS ORDERED: ADENOSINE 90 MG in SODIUM CHLORIDE 0.9% 60 ML IVP ONE (13:25)
[2019-07-25] MEDS ORDERED: SODIUM CHLORIDE 0.9% 50 ML BAG ONE (13:25)
[2019-07-25] MEDS ORDERED: IV FLUID CONTINUATION 1,000 ML IV ONE (13:32)
[2019-07-25] MEDS ORDERED: RX INFO: IV CONTRAST WAS GIVEN 1 EACH MISC MISCELLANE PRN (13:34)
--- NOTE | 2019-07-25 13:41 | P.PCN ---
Date of Procedure: 07/25/19 Operative Findings: CARDIAC CATHETERIZATION PERFORMING PHYSICIAN: Valerio Williamson MD, RPVI PROCEDURE PERFORMED: 1. Selective right and left coronary angiogram 2. Left heart catheterization 3. fractional flow reserve FFR of the LCX coronary artery INDICATION: This is a pleasant 69-year-old female patient with hypertension, diabetes, dyslipidemia, and peripheral arterial disease, presented to the hospital with a chest discomfort and she was found to be in atrial flutter. She continues to have ongoing chest discomfort. Giving her multiple risk factors I decided to pursue with coronary angiogram. COMPLICATION: None APPROACH: Right common femoral artery LEVEL OF SEDATION: Moderate with a sedation length of 41 minutes PROCEDURE DESCRIPTION: After obtaining an informed consent, the patient was brought to cardiac track repair laborer. Local anesthesia was performed using lidocaine subcutaneously. The right common femoral artery was cannulated using Seldinger technique, the guidewire passed easily, following that we advanced a 6 Uzbek sheath dilator assembly, the wire and dilator were removed and sheath was flushed. Selective right and left coronary angiogram using a 6-Uzbek JR4 and JL catheters. Following that we did left heart catheterization using 6-Uzbek pigtail catheter. The procedure was completed there was no complication. SELECTIVE CORONARY ANGIOGRAM: The right coronary artery: Is a medium caliber vessel and nondominant vessel. The ostial RCA has intermediate lesion appeared to be in the range of 50%. Left main: Is short but angiographically normal. Bifurcates into LCx, ramus intermedius, and left anterior descending artery The left circumflex: Is a large caliber vessel and a dominant vessel. The proximal left circumflex has a lesion appears to be in the range of 60-70%. FFR was applied and came in to be at 0.97. The mid LCx and distal LCx appeared to be angiographically normal. The LCx distally gives rises into one obtuse marginal branch which seems to be normal and then bifurcates into PDA and PLV branches and both alyssa eared to be angiographically normal. The ramus intermedius: Is a moderate caliber vessel was mild disease only. The left anterior descending artery: Is a large caliber vessel. The proximal LAD appeared to have mild disease only. The mid and distal LAD appears to be angiographically normal. HEMODYNAMICS: The LVEDP was elevated at 20-24 mmHg. FFR OF THE LCX: After zeroing the Doppler wire and equalizing between the Doppler wire and the guiding catheter which was JL4 was short the we did an FFR. IV adenosine infusion. FFR came in to be at 0.97 which is nonischemic. CONCLUSION: Intermediate to severe disease involving the proximal LCx which is a dominant vessel. POSTPROCEDURE MANAGEMENT: Medical treatment Performing PCI of the LCx if the patient continues to be symptomatic in spite of of controlling her heart rate Follow-up with the patient
[2019-07-25] MEDS ORDERED: SODIUM CHLORIDE 0.9% 1,000 ML IV SCH (13:45)
--- NOTE | 2019-07-25 14:00 | ECHOF ---
Referral Reason:aflutter MEASUREMENTS -------- HEIGHT: 165.1 cm WEIGHT: 94.3 kg BP: 117/61 RVIDd: 3.3 cm (< 3.3) IVSd: 1.5 cm (0.6 - 1.1) LVIDd: 4.4 cm (3.9 - 5.3) LVPWd: 1.6 cm (0.6 - 1.1) IVSs: 1.8 cm LVIDs: 3.5 cm LVPWs: 2.0 cm LAESV Index (A-L): 33.08 ml/m Ao Diam: 3.0 cm (2.0 - 3.7) AV Cusp: 1.9 cm (1.5 - 2.6) LA Diam: 4.1 cm (2.7 - 3.8) RAP: 5.00 mmHg RVSP: 35.72 mmHg FINDINGS -------- The rhythm appears to be atrial flutter. This was a technically difficult study with suboptimal apical views. The left ventricular size is normal. There is moderate concentric left ventricular hypertrophy. T here is moderate global hypokinesis of LV . It is difficult to coment on the EF. The endocardium wa s not seen well. The right ventricle is mildly enlarged. LA is midly dilated 29-33ml/m2. RA appears enlarged. 5.0mg of Lumason was utilized for enhancement of images Interatrial and interventricular septum intact. There is no evidence of aortic regurgitation. There is no evidence of aortic stenosis. Mild mitral regurgitation is present. Mild tricuspid regurgitation present. There is mild pulmonary hypertension. The right ventricular systolic pressure, as measured by Doppler, is 35.72mmHg. There is no pulmonic regurgitation present. The aortic root size is normal. IVC Not well visulized. There is no pericardial effusion. CONCLUSIONS -------- 1. The rhythm appears to be atrial flutter. 2. This was a technically difficult study with suboptimal apical views. 3. The left ventricular size is normal. 4. There is moderate concentric left ventricular hypertrophy. 5. There is moderate global hypokinesis of LV . 6. It is difficult to coment on the EF. The endocardium was not seen well. 7. The right ventricle is mildly enlarged. 8. LA is midly dilated 29-33ml/m2. 9. RA appears enlarged. 10. 5.0mg of Lumason was utilized for enhancement of images 11. Interatrial and interventricular septum intact. 12. There is no evidence of aortic regurgitation. 13. There is no evidence of aortic stenosis. 14. Mild mitral regurgitation is present. 15. Mild tricuspid regurgitation present. 16. There is mild pulmonary hypertension. 17. The right ventricular systolic pressure, as measured by Doppler, is 35.72mmHg. 18. There is no pulmonic regurgitation present. 19. The aortic root size is normal. 20. IVC Not well visulized. 21. There is no pericardial effusion. GROCERY DEPARTMENT MANAGER: Nicole Morelos RDCS
[2019-07-25] MEDS ORDERED: IOPAMIDOL-370 125ML BTL INJ ONE (14:02)
[2019-07-25] MEDS: HEPARIN SOD,PORK IN 0.45% NACL 25,000 UNIT in 0.45% NACL 1 250ML.BAG IV SCH (15:25)
[2019-07-25] MEDS ORDERED: ATROPINE SULFATE 0.1 MG/ML 10ML SYRINGE ONE (15:33)
[2019-07-25] MEDS: AMIODARONE 300 MG in DEXTROSE 5% IN WATER 250 ML IV SCH ×2 (15:46)
[2019-07-25] MEDS: SODIUM CHLORIDE 0.9% 1,000 ML IV SCH (15:46)
[2019-07-25 17:03] LABS: Glucose,Whole Blood 121 mg/dL (75-99)
[2019-07-25] MEDS: MORPHINE SULFATE 4 MG/ML SYRINGE IVP PRN ×2 (17:30→20:56)
[2019-07-25] MEDS ORDERED: ONDANSETRON 4 MG/2 ML VIAL IVP PRN (20:07)
[2019-07-25 20:19] LABS: Glucose,Whole Blood 156 mg/dL (75-99)
[2019-07-25] MEDS: FUROSEMIDE 10 MG/ML 2 ML VIAL IV SCH (22:04)
--- NOTE | 2019-07-26 00:28 | P.HPIM ---
History of Present Illness H&P Date: 07/25/19 Chief Complaint: Palpitations Patient is a 69-year-old female with a known history of COPD, nicotine addiction, diabetes type 2, hypertension, hyperlipidemia and bilateral carotid artery disease, left carotid endarterectomy, and history of atrial myxoma surgically resected, peripheral vascular disease, bilateral lower extremities and anxiety and panic disorder came to the hospital with complaints of palpitations, dizziness and nausea. Patient says that her symptoms started around 3 PM yesterday afternoon and felt like heart racing up fast. Currently denied any complaints of chest pain. No shortness of breath. Patient does have on and off chest pains otherwise. Patient felt very weak and worn out. Patient was having nausea and dry heaves. No cough or sputum production. No congestion. Otherwise denied any complaints of abdominal pain no diarrhea. No fever no chills. No recent illnesses. Patient had a prior admission with chest pain ACS was ruled out at that time. Patient was found to have atrial flutter with 1-1 block. Patient was initially given adinosine without improvement in heart rate. Patient was eventually started on Cardizem drip. Patient was telemetry for atrial flutter. Cardiology has seen the patient and was started on amiodarone drip as well. Patient is currently on anticoagulation with heparin drip. D-dimer 0.88 Chest x-ray showed no acute cardio pulmonary process VQ scan showed low probability for PE Review of Systems Constitutional: Patient denies any fever or chills . No generalized weakness or weight loss. Abdomen: Patient denied nausea vomiting and diarrhea and abdominal pain. Cardiovascular: Does have on of chest pains and shortness of breath. Patient does have palpitations Respiratory: patient denied any cough is from production. No shortness of breath Neurologic: Patient denied any numbness or tingling headache. Musculoskeletal: Patient denies any complaints of joint swelling or deformity. Skin: Negative Psychiatric: Negative Endocrine: No heat or cold intolerance. No recent weight gain. Genitourinary: No dysuria or hematuria. All other 14 point ROS negative except the above Past Medical History Past Medical History: COPD, Diabetes Mellitus, GERD/Reflux, Hyperlipidemia, Hypertension, Osteoarthritis (OA), Vascular Disorder Additional Past Medical History / Comment(s): Carotid artery disease bilateral, diabetes mellitus, hypertension and hyperlipidemia, osteoarthritis, 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 History of Any Multi-Drug Resistant Organisms: None Reported Past Surgical History: Appendectomy, Back Surgery, Cholecystectomy, Heart Catheterization, Orthopedic Surgery Additional Past Surgical History / Comment(s): Resection of an atrial myxoma/open heart for removal of tumor on the heart 2007, arthroscopic bilateral knees, left carotid endarterectomy 2014, cyst removed from left ovary, devyn cataracts Past Anesthesia/Blood Transfusion Reactions: No Reported Reaction Past Psychological History: Anxiety, Panic Disorder Additional Psychological History / Comment(s): claustrophobic Smoking Status: Current every day smoker Past Alcohol Use History: Rare Additional Past Alcohol Use History / Comment(s): smokes 1/2 PPD, smoked since age 19 Past Drug Use History: None Reported - Past Family History Mother Family Medical History: Diabetes Mellitus, Hyperlipidemia, Hypertension Sister(s) Family Medical History: Cancer Medications and Allergies Home Medications Medication Instructions Recorded Confirmed Type Esomeprazole Magnesium [NexIUM] 40 mg PO DAILY 03/23/14 07/24/19 History Insulin Detemir (Levemir) [Levemir] 15 unit SQ BID 03/23/14 07/24/19 History Aspirin [Adult Low Dose Aspirin EC] 81 mg PO DAILY 03/26/18 07/24/19 History Enalapril Maleate [Vasotec] 20 mg PO QAM 03/26/18 07/24/19 History Ergocalciferol [Vitamin D2 50,000 unit PO Q14D 03/26/18 07/24/19 History (DRISDOL)] Escitalopram [Lexapro] 10 mg PO HS 03/26/18 07/24/19 History Ipratropium/Albuterol Sulfate 2 puff INHALATION RT-QID PRN 03/26/18 07/24/19 History [Combivent Respimat Inhaler] Rosuvastatin Calcium [Crestor] 40 mg PO HS 04/03/18 07/24/19 History Potassium Chloride 10 meq PO QAM 12/25/18 07/24/19 History Clopidogrel Bisulfate [Plavix] 75 mg PO DAILY #90 tab 01/01/19 07/24/19 Rx Metoprolol Tartrate [Lopressor] 25 mg PO BID 01/19/19 07/24/19 History Pioglitazone [Actos] 15 mg PO DAILY 01/19/19 07/24/19 History amLODIPine BESYLATE [Norvasc] 5 mg PO QAM 01/19/19 07/24/19 History sitaGLIPtin PHOSPHATE [Januvia] 100 mg PO DAILY 01/19/19 07/24/19 History Furosemide [Lasix] 20 mg PO DAILY 07/24/19 07/24/19 History metFORMIN HCL [Glucophage] 500 mg PO BID 07/24/19 07/24/19 History Allergies Allergy/AdvReac Type Severity Reaction Status Date / Time codeine Allergy Chest Pain Verified 07/24/19 20:57 dogs,horses,mold Allergy RUNNY NOSE Uncoded 07/24/19 17:44 Physical Exam Vitals: Vital Signs Temp Pulse Pulse Resp BP BP Pulse Ox 07/25/19 11:00 62 18 109/69 95 07/25/19 10:10 118 H 16 110/67 96 07/25/19 08:50 97.9 F 134 H 18 117/61 96 07/25/19 05:08 130 H 118/69 07/25/19 04:58 129 H 130/75 07/25/19 03:20 98.5 F 131 H 16 119/71 97 07/25/19 00:32 98.4 F 133 H 16 124/68 92 L 07/25/19 00:07 98.4 F 130 H 16 137/81 96 07/24/19 23:55 130 H 16 136/100 97 07/24/19 21:32 130 H 16 139/86 97 07/24/19 20:12 131 H 18 139/89 95 07/24/19 18:29 134 H 18 126/94 99 07/24/19 17:42 97.4 F L 135 H 22 153/94 99 Intake and Output 07/24/19 07/25/19 07/25/19 22:59 06:59 14:59 Intake Total 125.726 214.471 Output Total 400 Balance -274.274 214.471 Intake: Intake, IV Titration 125.726 114.471 Amount Diltiazem 125 mg In 25.333 Sodium Chloride 0.9% 100 ml @ 10 MG/HR 10 mls/hr IV .[id number] [facility] Rx#: [id number] Heparin Sod,Pork in 0.45% 100.393 114.471 NaCl 25,000 unit In 0.45 % NaCl 1 250ml.bag @ 18 UNITS/KG/HR 17.064 mls/hr IV .[id number] [facility] Rx#: [id number] Oral 100 Output: Urine 400 Other: # Voids 1 1 Weight 94.801 kg PHYSICAL EXAMINATION: Patient is lying in the bed comfortably, no acute distress, awake alert and oriented.. HEENT: Normocephalic. Neck is supple. Pupils reactive. Nostrils clear. Oral cavi ty is moist. Ears reveal no drainage. Neck reveals no JVD, carotid bruits, or thyromegaly. CHEST EXAMINATION: Trachea is central. Symmetrical expansion. Bibasilar diminished air entry. Lung may clear to auscultation and percussion. CARDIAC: Normal S1, S2 with no gallops. No murmurs . Irregularly irregular rhythm. ABDOMEN: Soft. Bowel sounds normal. No organomegaly. No abdominal bruits. Extremities: reveal no edema. No clubbing or cyanosis Neurologically awake, alert, oriented x3 with well-coordinated movements. No focal deficits noted Skin: No rash or skin lesions. Psychiatric: Coperative. Nonsuicidal Musculoskeletal: No joint swelling or deformity. Normal range of motion. Results CBC & Chem 7: 07/25/19 02:31 07/25/19 02:31 Labs: Abnormal Lab Results - Last 24 Hours (Table) 07/24/19 07/24/19 07/24/19 Range/Units 18:02 18:02 18:02 MCHC 30.6 L (31.0-37.0) g/dL INR 1.2 H (<1.2) APTT (22.0-30.0) sec D-Dimer 0.88 H (<0.60) mg/L FEU Potassium (3.5-5.1) mmol/L BUN 18 H (7-17) mg/dL Creatinine 1.49 H (0.52-1.04) mg/dL Glucose 218 H (74-99) mg/dL POC Glucose (mg/dL) (75-99) mg/dL Magnesium 1.1 L (1.6-2.3) mg/dL AST (14-36) U/L Total Protein (6.3-8.2) g/dL Albumin (3.5-5.0) g/dL Urine Protein (Negative) Urine Glucose (UA) (Negative) Urine Blood (Negative) Ur Leukocyte Esterase (Negative) Hyaline Casts (0-2) /lpf Urine Mucus (None) /hpf 07/24/19 07/25/19 07/25/19 Range/Units 18:54 02:31 02:31 MCHC (31.0-37.0) g/dL INR (<1.2) APTT 121.0 H* (22.0-30.0) sec D-Dimer (<0.60) mg/L FEU Potassium 3.4 L (3.5-5.1) mmol/L BUN (7-17) mg/dL Creatinine 1.31 H (0.52-1.04) mg/dL Glucose 267 H (74-99) mg/dL POC Glucose (mg/dL) (75-99) mg/dL Magnesium (1.6-2.3) mg/dL AST 41 H (14-36) U/L Total Protein 5.7 L (6.3-8.2) g/dL Albumin 3.2 L (3.5-5.0) g/dL Urine Protein 2+ H (Negative) Urine Glucose (UA) 1+ H (Negative) Urine Blood Trace H (Negative) Ur Leukocyte Esterase Trace H (Negative) Hyaline Casts 7 H (0-2) /lpf Urine Mucus Rare H (None) /hpf 07/25/19 07/25/19 07/25/19 Range/Units 06:30 09:18 11:39 MCHC (31.0-37.0) g/dL INR (<1.2) APTT 65.2 H (22.0-30.0) sec D-Dimer (<0.60) mg/L FEU Potassium (3.5-5.1) mmol/L BUN (7-17) mg/dL Creatinine (0.52-1.04) mg/dL Glucose (74-99) mg/dL POC Glucose (mg/dL) 250 H 163 H (75-99) mg/dL Magnesium (1.6-2.3) mg/dL AST (14-36) U/L Total Protein (6.3-8.2) g/dL Albumin (3.5-5.0) g/dL Urine Protein (Negative) Urine Glucose (UA) (Negative) Urine Blood (Negative) Ur Leukocyte Esterase (Negative) Hyaline Casts (0-2) /lpf Urine Mucus (None) /hpf Thrombosis Risk Factor Assmnt - DVT/VTE Prophylaxis DVT/VTE Prophylaxis: Pharmacologic Prophylaxis ordered - Choose All That Apply Any of the Below Risk Factors Present?: Yes Each Factor Represents 1 point: Abnormal pulmonary function (COPD), Obesity (BMI >25), Swollen legs (current) Each Risk Factor Represents 2 Points: Age 61-74 years Other congenital or acquired thrombophilia - If yes, enter type in comment: No Thrombosis Risk Factor Assessment Total Risk Factor Score: 5 Thrombosis Risk Factor Assessment Level: High Risk Assessment and Plan Assessment: Palpitations likely due to Atrial flutter with rapid ventricular rate and variable conduction. Intermittent chest pain. Rule out ACS. Hypomagnesemia 1.1 Acute kidney injury with possible underlying CK D stage III Severe peripheral vascular disease and also history of left carotid endarterectomy Ongoing nicotine addiction Hypertension Hyperlipidemia Diabetes type 2 GERD Osteoarthritis Anxiety and panic disorder Elevated d-dimer. VQ scan is low probability for PE Plan: Patient will be conducted on Cardizem drip. Patient was seen by cardiology and currently is being continued on amiodarone and heparin drips. Cardiac catheterization was recommended by cardiology. Patient was started on metoprolol. Continue the home medications and insulin dosing. Monitor CBC and further recommendations based on the clinical course. Prognosis is guarded. Time with Patient: Greater than 30
[2019-07-26] MEDS: DILTIAZEM 125 MG in SODIUM CHLORIDE 0.9% 100 ML IV SCH ×2 (02:19→12:03)
[2019-07-26] MEDS: AMIODARONE 300 MG in DEXTROSE 5% IN WATER 250 ML IV SCH ×2 (02:22)
[2019-07-26 06:21] LABS: Basophils # (A) 0.1 k/uL (0-0.2); Basophils % (A) 1 %; Eosinophils # (A) 0.1 k/uL (0-0.7); Eosinophils % (A) 2 %; HCT 35.4 % (34.0-46.0); HGB 11.5 gm/dL (11.4-16.0); Hypochromasia Moderate; Lymphocytes # (A) 1.6 k/uL (1.0-4.8); Lymphocytes % (A) 20 %; MCH 30.8 pg (25.0-35.0); MCHC 32.4 g/dL (31.0-37.0); MCV 94.9 fL (80.0-100.0); Mean Platelet Volume 6.6; Monocytes # (A) 0.4 k/uL (0-1.0); Monocytes % (A) 5 %; Neutrophils # (A) 5.6 k/uL (1.3-7.7); Neutrophils % (A) 71 %; Platelet Count 264 k/uL (150-450); RBC 3.73 m/uL (3.80-5.40); RDW 15.2 % (11.5-15.5); WBC 7.9 k/uL (3.8-10.6)
[2019-07-26 06:24] LABS: Glucose,Whole Blood 124 mg/dL (75-99)
[2019-07-26] MEDS: INSULIN ASPART (NovoLOG) 100 UNIT/ML VIAL SQ SCH ×4 (06:30→20:38)
[2019-07-26] MEDS: INSULIN DETEMIR (LEVEMIR) 100 UNIT/ML SYR SQ SCH ×2 (06:31→20:39)
[2019-07-26] MEDS: HEPARIN SOD,PORK IN 0.45% NACL 25,000 UNIT in 0.45% NACL 1 250ML.BAG IV SCH (06:33)
[2019-07-26 06:35] LABS: Calcium 8.6 mg/dL (8.4-10.2); Magnesium 1.7 mg/dL (1.6-2.3); Potassium 4.3 mmol/L (3.5-5.1)
[2019-07-26] MEDS: METOPROLOL TARTRATE 25 MG TAB PO SCH ×2 (08:07→20:39)
[2019-07-26] MEDS: FUROSEMIDE 10 MG/ML 2 ML VIAL IV SCH ×2 (08:07→20:38)
--- NOTE | 2019-07-26 10:11 | P.PN ---
Subjective Progress Note Date: 07/26/19 Principal diagnosis: Paroxysmal atrial fibrillation This is a pleasant 69-year-old female patient with a past medical history significant for myxoma removal in the past, peripheral arterial disease and status post bilateral SFA angioplasty, hypertension, and dyslipidemia, as well as diabetes, presented to the hospital with symptoms of dizziness and lightheadedness and feeling weak as well. The patient was in her usual state of health yesterday when she was doing shopping with her and suddenly she felt dizzy. She felt her heart was racing up and she felt palpitation as well. She was brought to the emergency room where she was found to be in atrial flutter with RVR and she received adenosine twice but that did not help and she continues to be in atrial flutter. Beside that, the patient continues to have chest discomfort which was relieved by nitroglycerin IV. Because of the ongoing chest discomfort, I did perform a heart catheterization which revealed in termediate to severe disease involving the left circumflex coronary artery and FFR was performed and came in to be nonischemic. The echo was technically very difficult and the ejection fraction couldn't be assessed. She was started on IV Lasix because the left ventricular end-diastolic pressure was elevated. On follow-up with the patient today, 07/26/2019, she is feeling overall better. She stated that no chest pain or chest discomfort. She continues to be on Lasix IV and the creatinine continues to be stable. She continues to be in atrial flutter with a heart rate at 120 beats per minutes. Currently she is on Cardizem IV at 10 mg per hour and also she is on amiodarone IV since yesterday. I am going to DC the amiodarone IV and start the patient on amiodarone by mouth. We'll continue Cardizem IV for now. DC the heparin IV and start the patient on oral anticoagulation. If she continues to be in flutter I with consider doing a SARAH and cardioversion on her tomorrow. Objective - Vital Signs Vital signs: Vital Signs Temp 98.2 F 07/26/19 07:50 Pulse 120 H 07/26/19 07:50 Resp 16 07/26/19 07:50 BP 116/72 07/26/19 07:50 Pulse Ox 94 L 07/26/19 07:50 Intake & Output 10/10/0107/26/19 07/26/19 18:59 06:59 18:59 Intake Total 549.138 250 Output Total 200 1100 Balance 349.138 -850 Intake: IV 235 Intake, IV Titration 214.138 250 Amount Amiodarone 300 mg In 250 Dextrose 5% in Water 250 ml @ 0.5 MG/MIN 25 mls/hr IV .Q10H [facility] Rx#: [id number] Diltiazem 125 mg In 99.667 Sodium Chloride 0.9% 100 ml @ 10 MG/HR 10 mls/hr IV .[id number] [facility] Rx#: [id number] Heparin Sod,Pork in 0.45% 114.471 NaCl 25,000 unit In 0.45 % NaCl 1 250ml.bag @ 18 UNITS/KG/HR 17.064 mls/hr IV .[id number] [facility] Rx#: [id number] Oral 100 Output: Urine 200 1100 Other: # Voids 1 2 - Constitutional General appearance: Present: no acute distress - Respiratory Respiratory: bilateral: CTA - Cardiovascular Rhythm: regular Heart sounds: normal: S1, S2 - Labs CBC & Chem 7: 07/26/19 05:33 07/26/19 05:33 Labs: Abnormal Lab Results - Last 24 Hours (Table) 07/25/19 07/25/19 07/25/19 Range/Units 11:39 16:52 20:18 RBC (3.80-5.40) m/uL Creatinine (0.52-1.04) mg/dL Glucose (74-99) mg/dL POC Glucose (mg/dL) 163 H 121 H 156 H (75-99) mg/dL 07/26/19 07/26/19 07/26/19 Range/Units 05:33 05:33 06:23 RBC 3.73 L (3.80-5.40) m/uL Creatinine 1.21 H (0.52-1.04) mg/dL Glucose 116 H (74-99) mg/dL POC Glucose (mg/dL) 124 H (75-99) mg/dL Assessment and Plan Assessment: Assessment #1 congestive heart failure exacerbation probably related to diastolic dysfunction #2 atrial flutter with variable block #3 severe peripheral arterial disease #4 hypertension #5 dyslipidemia #6 diabetes type 2 Plan #1 continue Cardizem IV #2 DC amiodarone IV and start the patient on the medial by mouth #3 start oral anticoagulation #4 continue Lasix IV #5 continue monitor the kidney function and electrolytes #6 if she continues to be in atrial flutter with consider doing a SARAH and cardioversion Thank you for allowing us participate in her care and we will continue following up with the patient
[2019-07-26] MEDS: AMIODARONE 200 MG TAB PO SCH ×2 (10:14→20:38)
[2019-07-26] MEDS: MAGNESIUM SULFATE-D5W PMX 1 GM in DEXTROSE/WATER 1 100ML.BAG IVPB SCH ×2 (10:14→12:03)
[2019-07-26] MEDS: APIXABAN 5 MG TAB PO SCH ×2 (10:14→20:38)
[2019-07-26] MEDS: ASPIRIN 81 MG PO SCH (10:14)
[2019-07-26 12:00] LABS: Glucose,Whole Blood 248 mg/dL (75-99)
--- NOTE | 2019-07-26 15:12 | P.PN ---
Subjective Progress Note Date: 07/26/19 Principal diagnosis: Atrial flutter with rapid ventricular rate Patient is a 69-year-old female with a known history of COPD, nicotine addiction, diabetes type 2, hypertension, hyperlipidemia and bilateral carotid artery disease, left carotid endarterectomy, and history of atrial myxoma surgically resected, peripheral vascular disease, bilateral lower extremities and anxiety and panic disorder came to the hospital with complaints of palpitations, dizziness and nausea. Patient says that her symptoms started around 3 PM yesterday afternoon and felt like heart racing up fast. Currently denied any complaints of chest pain. No shortness of breath. Patient does have on and off chest pains otherwise. Patient felt very weak and worn out. Patient was having nausea and dry heaves. No cough or sputum production. No congestion. Otherwise denied any complaints of abdominal pain no diarrhea. No fever no chills. No recent illnesses. Patient had a prior admission with chest pain ACS was ruled out at that time. Patient was found to have atrial flutter with 1-1 block. Patient was initially given adinosine without improvement in heart rate. Patient was eventually started on Cardizem drip. Patient was telemetry for atrial flutter. Cardiology has seen the patient and was started on amiodarone drip as well. Patient is currently on anticoagulation with heparin drip. D-dimer 0.88 Chest x-ray showed no acute cardio pulmonary process VQ scan showed low probability for PE Patient had cardiac catheterization on 07/25/2019 showed Intermediate to severe disease involving the proximal LCx which is a dominant vessel. 07/26/2019 Patient is currently lying in the bed comfortably. Heart rate is still elevated around 110. Continued on Cardizem drip. Amiodarone has been changed to by mouth. Start on anticoagulation with thin liquids. Patient continues to be in atrial flutter otherwise. Patient is also getting IV Lasix 20 mg twice daily. Cardiology is planning for SARAH with cardioversion likely tomorrow. Patient has been afebrile. No nausea vomiting or abdominal pain. Currently saturating well on nasal cannula oxygen. Active Medications Amiodarone HCl (Cordarone) 400 mg PO BID [facility] Last Admin: 07/26/19 10:14 Dose: 400 mg Documented by: Apixaban (Eliquis) 5 mg PO BID [facility] Last Admin: 07/26/19 10:14 Dose: 5 mg Documented by: Aspirin (Aspirin) 81 mg PO DAILY [facility] Last Admin: 07/26/19 10:14 Dose: 81 mg Documented by: Furosemide (Lasix) 20 mg IV Q12HR [facility] Last Admin: 07/26/19 08:07 Dose: 20 mg Documented by: Sodium Chloride (Saline 0.9%) 1,000 mls @ 20 mls/hr IV .Q24H [facility] Last Admin: 07/25/19 15:46 Dose: 20 mls/hr Documented by: Diltiazem HCl 125 mg/ Sodium (Chloride) 125 mls @ 10 mls/hr IV .[id number] [facility] Last Admin: 07/26/19 12:03 Dose: 10 mg/hr, 10 mls/hr Documented by: Insulin Aspart (Novolog) 0 unit SQ ACHS [facility]; Protocol Last Admin: 07/26/19 12:03 Dose: 4 unit Documented by: Insulin Detemir (Levemir) 15 unit SQ 0700,2100 [facility] Last Admin: 07/26/19 06:31 Dose: 15 unit Documented by: Metoprolol Tartrate (Lopressor) 25 mg PO BID [facility] Last Admin: 07/26/19 08:07 Dose: 25 mg Documented by: Miscellaneous Information (Magnesium Per Protocol) 1 each MISCELLANE DAILY PRN; Protocol PRN Reason: Per Protocol Miscellaneous Information (Rx Info: Iv Contrast Was Given) 1 each MISCELLANE DAILY PRN PRN Reason: Per Protocol Stop: 07/27/19 13:34 Morphine Sulfate (Morphine Sulfate (Inj)) 4 mg IVP Q4HR PRN PRN Reason: Pain Last Admin: 07/25/19 20:56 Dose: 4 mg Documented by: Naloxone HCl (Narcan) 0.2 mg IV Q2M PRN PRN Reason: Opioid Reversal Nitroglycerin (Nitrostat) 0.4 mg SUBLINGUAL Q5M PRN PRN Reason: Chest Pain Last Admin: 07/25/19 11:05 Dose: 0.4 mg Documented by: Ondansetron HCl (Zofran) 4 mg IVP Q8HR PRN PRN Reason: Nausea And Vomiting Last Admin: 07/25/19 20:15 Dose: 4 mg Documented by: Objective - Vital Signs Vital signs: Vital Signs Temp 98.2 F 07/26/19 07:50 Pulse 109 H 07/26/19 11:15 Resp 16 07/26/19 11:15 BP 100/56 07/26/19 11:15 Pulse Ox 96 07/26/19 11:15 Intake & Output 07/25/19 07/26/19 07/26/19 18:59 06:59 18:59 Intake Total 549.138 250 637.333 Output Total 200 1100 300 Balance 349.138 -850 337.333 Intake: IV 235 240 Diltiazem 125 mg In 80 Sodium Chloride 0.9% 100 ml @ 10 MG/HR 10 mls/hr IV .[id number] [facility] Rx#: [id number] Sodium Chloride 0.9% 1, 160 000 ml @ 20 mls/hr IV . Q24H [facility] Rx#:[id number] Intake, IV Titration 214.138 250 397.333 Amount Amiodarone 300 mg In 250 Dextrose 5% in Water 250 ml @ 0.5 MG/MIN 25 mls/hr IV .Q10H [facility] Rx#: [id number] Amiodarone 360 mg In 100 Dextrose 5% in Water 200 ml @ 1 MG/MIN 33.333 mls/ hr IV .Q6H [facility] Rx#: [id number] Diltiazem 125 mg In 99.667 97.333 Sodium Chloride 0.9% 100 ml @ 10 MG/HR 10 mls/hr IV .[id number] [facility] Rx#: [id number] Heparin Sod,Pork in 0.45% 114.471 NaCl 25,000 unit In 0.45 % NaCl 1 250ml.bag @ 18 UNITS/KG/HR 17.064 mls/hr IV .[id number] [facility] Rx#: [id number] Magnesium Sulfate-D5w Pmx 200 1 gm In Dextrose/Water 1 100ml.bag @ 100 mls/hr IVPB Q1H [facility] Rx#: [id number] Oral 100 Output: Urine 200 1100 300 Other: # Voids 1 2 - Exam PHYSICAL EXAMINATION: Patient is lying in the bed comfortably, no acute distress, awake alert and oriented.. HEENT: Normocephalic. Neck is supple. Pupils reactive. Nostrils clear. Oral cavity is moist. Ears reveal no drainage. Neck reveals no JVD, carotid bruits, or thyromegaly. CHEST EXAMINATION: Trachea is central. Symmetrical expansion. Minimal basilar crackles. Lung may clear to auscultation and percussion. CARDIAC: Normal S1, S2 with no gallops. No murmurs . Irregularly irregular rhythm. ABDOMEN: Soft. Bowel sounds normal. No organomegaly. No abdominal bruits. Extremities: reveal no edema. No clubbing or cyanosis Neurologically awake, alert, oriented x3 with well-coordinated movements. No focal deficits noted Skin: No rash or skin lesions. Psychiatric: Coperative. Nonsuicidal Musculoskeletal: No joint swelling or deformity. Normal range of motion. - Labs CBC & Chem 7: 07/26/19 05:33 07/26/19 05:33 Labs: Abnormal Lab Results - Last 24 Hours (Table) 07/25/19 07/25/19 07/26/19 Range/Units 16:52 20:18 05:33 RBC 3.73 L (3.80-5.40) m/uL Creatinine (0.52-1.04) mg/dL Glucose (74-99) mg/dL POC Glucose (mg/dL) 121 H 156 H (75-99) mg/dL 07/26/19 07/26/19 07/26/19 Range/Units 05:33 06:23 11:53 RBC (3.80-5.40) m/uL Creatinine 1.21 H (0.52-1.04) mg/dL Glucose 116 H (74-99) mg/dL POC Glucose (mg/dL) 124 H 248 H (75-99) mg/dL Assessment and Plan Assessment: Palpitations due to Atrial flutter with rapid ventricular rate and variable conduction. Patient remains in atrial flutter. Intermittent chest pain. Ruled out ACS. Hypomagnesemia 1.1 Acute kidney injury with possible underlying CK D stage III. Improved now Severe peripheral vascular disease and also history of left carotid endarterectomy Ongoing nicotine addiction Hypertension Hyperlipidemia Diabetes type 2 GERD Osteoarthritis Anxiety and panic disorder Elevated d-dimer. VQ scan is low probability for PE Plan: Patient will be conducted on Cardizem drip. Patient was seen by cardiology and currently is being continued on amiodarone, changed to by mouth and heparin drip has been discontinued and oral anticoagulation was started.. Patient is status post cardiac catheterization. Patient was started on metoprolol. Patient remains in atrial fibrillation. Plan for SARAH with cardioversion tomorrow. Continue the home medications and insulin dosing. Monitor CBC and further recommendations based on the clinical course. Prognosis is guarded. Time with Patient: Greater than 30
[2019-07-26 17:06] LABS: Glucose,Whole Blood 171 mg/dL (75-99)
[2019-07-26] MEDS: SODIUM CHLORIDE 0.9% 1,000 ML IV SCH (20:30)
[2019-07-26 20:38] LABS: Glucose,Whole Blood 273 mg/dL (75-99)
[2019-07-27] MEDS: DILTIAZEM 125 MG in SODIUM CHLORIDE 0.9% 100 ML IV SCH ×3 (02:25→22:28)
[2019-07-27 06:01] LABS: Glucose,Whole Blood 110 mg/dL (75-99)
[2019-07-27] MEDS: INSULIN ASPART (NovoLOG) 100 UNIT/ML VIAL SQ SCH ×4 (06:02→21:11)
[2019-07-27 06:27] LABS: Basophils # (A) 0.1 k/uL (0-0.2); Basophils % (A) 1 %; Eosinophils # (A) 0.2 k/uL (0-0.7); Eosinophils % (A) 3 %; HCT 35.7 % (34.0-46.0); HGB 10.8 gm/dL (11.4-16.0); Hypochromasia Slight; Lymphocytes # (A) 1.5 k/uL (1.0-4.8); Lymphocytes % (A) 24 %; MCH 28.4 pg (25.0-35.0); MCHC 30.3 g/dL (31.0-37.0); MCV 93.8 fL (80.0-100.0); Mean Platelet Volume 6.7; Monocytes # (A) 0.4 k/uL (0-1.0); Monocytes % (A) 6 %; Neutrophils # (A) 4.1 k/uL (1.3-7.7); Neutrophils % (A) 64 %; Platelet Count 273 k/uL (150-450); RDW 15.2 % (11.5-15.5); WBC 6.3 k/uL (3.8-10.6)
[2019-07-27] MEDS: FUROSEMIDE 10 MG/ML 2 ML VIAL IV SCH ×2 (08:58→20:17)
[2019-07-27] MEDS: APIXABAN 5 MG TAB PO SCH ×2 (08:58→20:17)
[2019-07-27] MEDS: ASPIRIN 81 MG PO SCH (08:58)
[2019-07-27] MEDS: AMIODARONE 200 MG TAB PO SCH ×2 (08:58→20:16)
[2019-07-27] MEDS: METOPROLOL TARTRATE 25 MG TAB PO SCH ×2 (08:58→20:24)
[2019-07-27] MEDS: INSULIN DETEMIR (LEVEMIR) 100 UNIT/ML SYR SQ SCH ×2 (10:41→21:12)
[2019-07-27] MEDS ORDERED: BENZOCAINE SPRAY 1 CAN MUCOUS MEM ONE ×3 (11:00→11:30)
[2019-07-27] MEDS ORDERED: IV FLUID CONTINUATION 1,000 ML IV ONE (11:22)
[2019-07-27] MEDS ORDERED: PROPOFOL 10 MG/ML 20 ML VIAL IV ONE (11:52)
[2019-07-27] MEDS ORDERED: MIDAZOLAM 2 MG/2 ML VIAL ONE (11:52)
[2019-07-27] MEDS ORDERED: fentaNYL (PF) 50 MCG/ML 2 ML AMP ONE (11:52)
--- NOTE | 2019-07-27 11:57 | CDI ---
Documentation Clarification Form Date: 07/27/2019 11:34:57 AM From: Hoda Che RN, CCDS Admit Date: 07/24/2019 8:58:00 PM Patient Name: Marilyn Moeller Visit Number: [id number] Discharge Date: ATTENTION: The Clinical Documentation Specialists (CDI) and [facility] Coding Staff appreciate your assistance in clarifying documentation. Please respond to the clarification below the line at the bottom and electronically sign. The CDI & [facility] Coding staff will review the response and follow-up if needed. Please note: Queries are made part of the Legal Health Record. If you have any questions, please contact the author of this message via ITS. Dr. Valerio Williamson Atrial Flutter is documented in your consult and subsequent progress notes as atrial flutter with variable block. In order to accurately capture the most appropriate diagnosis further clarification is needed. History/Risk factors: Atrial Myxoma with removal, Carotid artery disease, Diabetes mellitus type 2, Clinical Indicators: 69-year-old female present with symptoms of dizziness and lightheadedness and feeling weak. She felt her heart was racing and felt palpitations. In ER, EKG showed her to be in atrial flutter with 1:1 block, heart rate around 135 bpm. Treatment: Adenosine IV (now PO) Cardizem IV Heparin IV (now Eliquis PO BID) ECHO Lopressor PO BID Lasix IV q12 In your professional opinion, in order to capture the severity of condition; can you please further clarify the type of Atrial Flutter with variable block if known? Typical/Type I Atypical/Type II Other, please specify Unable to determine (Last Revision: January 2018) MTDD
[2019-07-27] MEDS ORDERED: SODIUM CHLORIDE 0.9% 1,000 ML IV ONE (12:11)
--- NOTE | 2019-07-27 12:30 | CE ---
CARDIAC ELECTROPHYSIOLOGY REPORT DATE OF SERVICE: 07/27/2019 PERFORMING PHYSICIAN: Valerio Williamson MD. PROCEDURE PERFORMED: Cardioversion. INDICATION: This is a 69-year-old female patient who was admitted to the hospital with atrial flutter which was difficult to control and maximize medical treatment. Because of that, a SARAH was performed and showed no evidence of left atrial appendage thrombus. The cardioversion was planned after that. COMPLICATION: None. LEVEL OF SEDATION: Deep sedation was performed with propofol and IRRIGATIONIST DESIGNER in the room. PROCEDURE DESCRIPTION: After SARAH was performed and left atrial appendage thrombus was ruled out, we pursued with the cardioversion. The patient was cardioverted from atrial flutter to normal sinus mechanism using 100 joules on first attempt. CONCLUSION: Successful cardioversion of atrial flutter to normal sinus mechanism using 100 joules on first attempt. MMODL / IJN: [id number] /
--- NOTE | 2019-07-27 12:46 | ECHOT ---
TRANSESOPHAGEAL ECHOCARDIOGRAM DATE OF SERVICE: July 27, 2019 PERFORMING PHYSICIAN: Valerio Williamson MD, rn gynecology. PROCEDURE PERFORMED: Transesophageal echocardiogram. INDICATION: This is a 69-year-old female patient who was admitted to the hospital with atrial flutter with rapid ventricular response which was difficult to control on maximized medical treatment. Because of that, a cardioversion was planned. The SARAH is to rule out any intracardiac thrombus. COMPLICATION: None. LEVEL OF SEDATION: Deep sedation was performed using propofol with MANAGER PMO in the room. PROCEDURE DESCRIPTION: After obtaining an informed consent, explaining the procedure, benefits, risks, complications and alternatives, the patient was brought to the transesophageal echocardiogram suite. A pulse oximetry and heart rate monitors were attached to the patient prior to the procedure. The patient's throat was sprayed using lidocaine locally. Following that, the patient was turned into left lateral position. A bite guard was placed and the patient was then sedated with the above doses of Versed and fentanyl in divided doses. Following that, the transesophageal echocardiogram probe was advanced through the bite guard into the mid esophagus where 2-D echocardiogram images as well as color Doppler images of various cardiac structures were obtained. We evaluated the interatrial septum using 2-D echocardiogram, color Doppler, and contrast study. The procedure was completed. There were no complications. FINDINGS: The left ventricular dimension appeared to be within normal limits. The left ventricular systolic function appeared to be mildly impaired with EF around 45%. Right ventricle appeared to be mildly dilated. The left atrium is severely dilated. The aortic valve is trileaflet valve without stenosis or regurgitation. The mitral valve seems to be mildly thickened with mild to moderate MR. There was moderate tricuspid regurgitation seen. The interatrial septum appeared to be intact. No evidence of left atrial appendage thrombus. CONCLUSION: 1. Intact left atrial appendage without any evidence of thrombus. 2. Intact interatrial septum without any evidence of shunt. 3. Severely dilated left atrium. 4. Mildly impaired left ventricular function with ejection fraction around 45% with global hypokinesia. 5. Trileaflet aortic valve without stenosis or regurgitation. 6. Thickened mitral valve leaflets with evidence of mild to moderate mitral regurgitation. 7. Moderate tricuspid regurgitation. 8. Normal pulmonic valve with mild insufficiency. 9. No evidence of pericardial effusion. 10.Normal aortic root dimension. POSTPROCEDURE MANAGEMENT: Proceed with cardioversion. MMODL / IJN: [id number] /
[2019-07-27 13:06] LABS: Glucose,Whole Blood 129 mg/dL (75-99)
--- NOTE | 2019-07-27 13:07 | P.PN ---
Subjective This is Susanna Herron PA-C dictating a progress note on this patient The patient was interviewed and examined by me as well as by Dr. Mccray Case discussed with Dr. Mccray and he agrees with the plan of care IMPRESSION / ASSESSMENT: Atrial flutter with RVR, rates in the 110s to 120s, anticoagulated with eliquis CAD, recent cath showing obstructive lesion in the left circumflex Possible global hypokinesis on echocardiogram PAD status post bilateral SFA angioplasty Hypertension Dyslipidemia Diabetes PLAN: Proceed with SARAH and electrical cardioversion with Dr. Williamson today HPI/interval history Patient is a 69-year-old female with a past medical history of myxoma status post removal, PAD status post bilateral SFA angioplasty, hypertension, dyslipidemia and diabetes who presented with complaints of palpitations and dizziness. Upon presentation to the hospital she was found to be in atrial flutter with RVR. She also was having some chest discomfort. Echocardiogram showed moderate global hypokinesis, the echo was a technically difficult study and the EF was unable to be estimated. She underwent a coronary angiogram which showed intermediate to severe disease involving the proximal left circumflex, non-obstructive by FFR and elevated LVEDP. She remains in atrial flutter with RVR. Patient seen and examined resting in bed. She is awaiting SARAH and electrical cardioversion. Denies any complaints of chest pain, shortness of breath dizziness lightheadedness or syncope. EXAMINATION Temperature 97.4F, pulse 117, respirations 18, blood pressure 124/75, oxygen saturation 90% on room air Patient seen and examined resting comfortably in bed, in no acute distress Lungs are clear to auscultation bilaterally, no wheezing, crackles or rhonchi Heart is tachycardic but regular, no murmurs noted No elevated JVD No lower extremity Abdomen soft REVIEW OF LABS, ECG WBC 6.3, hemoglobin 10.8, platelets 237, potassium 4.3, BUN 13, creatinine 1.21 TSH within normal limits at 2.84 Objective - Vital Signs Vital signs: Vital Signs Temp 97.4 F L 07/27/19 08:00 Pulse 43 L 07/27/19 12:28 Resp 16 07/27/19 12:28 BP 96/52 07/27/19 12:28 Pulse Ox 97 07/27/19 12:28 Intake & Output 07/26/19 07/27/19 07/27/19 18:59 06:59 18:59 Intake Total 240.016 5122 Output Total 300 Balance 833.262 0893 Weight 98.4 kg Intake: IV 240 1010 Diltiazem 125 mg In 80 Sodium Chloride 0.9% 100 ml @ 10 MG/HR 10 mls/hr IV .[id number] [facility] Rx#: [id number] Sodium Chloride 0.9% 1, 160 60 000 ml @ 20 mls/hr IV . Q24H [facility] Rx#:[id number] Intake, IV Titration 397.333 Amount Amiodarone 360 mg In 100 Dextrose 5% in Water 200 ml @ 1 MG/MIN 33.333 mls/ hr IV .Q6H ONE Rx#: [id number] Diltiazem 125 mg In 97.333 Sodium Chloride 0.9% 100 ml @ 10 MG/HR 10 mls/hr IV .[id number] [facility] Rx#: [id number] Magnesium Sulfate-D5w Pmx 200 1 gm In Dextrose/Water 1 100ml.bag @ 100 mls/hr IVPB Q1H [facility] Rx#: [id number] Oral 240 Output: Urine 300 Other: # Voids 1 1 - Labs CBC & Chem 7: 07/27/19 05:40 07/26/19 05:33 Labs: Abnormal Lab Results - Last 24 Hours (Table) 07/26/19 07/26/19 07/27/19 Range/Units 16:52 20:37 05:40 Hgb 10.8 L (11.4-16.0) gm/dL MCHC 30.3 L (31.0-37.0) g/dL POC Glucose (mg/dL) 171 H 273 H (75-99) mg/dL 07/27/19 Range/Units 06:00 Hgb (11.4-16.0) gm/dL MCHC (31.0-37.0) g/dL POC Glucose (mg/dL) 110 H (75-99) mg/dL
[2019-07-27 16:22] LABS: Glucose,Whole Blood 251 mg/dL (75-99)
[2019-07-27] MEDS: SODIUM CHLORIDE 0.9% 1,000 ML IV SCH (20:21)
[2019-07-27 21:04] VITALS: RESP 18
[2019-07-27 21:07] LABS: Glucose,Whole Blood 278 mg/dL (75-99)
[2019-07-27] MEDS: MORPHINE SULFATE 4 MG/ML SYRINGE IVP PRN (21:16)
[2019-07-28 06:29] LABS: Glucose,Whole Blood 123 mg/dL (75-99)
[2019-07-28] MEDS: INSULIN ASPART (NovoLOG) 100 UNIT/ML VIAL SQ SCH ×2 (06:30→12:33)
[2019-07-28] MEDS: INSULIN DETEMIR (LEVEMIR) 100 UNIT/ML SYR SQ SCH (07:50)
[2019-07-28] MEDS: FUROSEMIDE 10 MG/ML 2 ML VIAL IV SCH (08:01)
[2019-07-28] MEDS: METOPROLOL TARTRATE 25 MG TAB PO SCH (08:01)
[2019-07-28] MEDS: AMIODARONE 200 MG TAB PO SCH (08:01)
[2019-07-28] MEDS: ASPIRIN 81 MG PO SCH (08:01)
[2019-07-28] MEDS: APIXABAN 5 MG TAB PO SCH (08:01)
[2019-07-28 11:36] VITALS: BP 140/62; PULSE 54; TEMP 98.1
--- NOTE | 2019-07-28 11:58 | P.PN ---
Subjective This is Susanna Herron PA-C dictating a progress note on this patient The patient was interviewed and examined by me as well as by Dr. Mccray Case discussed with Dr. Mccray and he agrees with the plan of care IMPRESSION / ASSESSMENT: Atrial flutter with RVR status post cardioversion, maintaining sinus rhythm Nonischemic cardiomyopathy, EF 45% on SARAH Recent cath showed nonobstructive CAD Hypertension Dyslipidemia Diabetes PLAN: Decrease amiodarone to 400 mg daily and gradually reduced dose thereafter Switch metoprolol tartrate to low dose metoprolol succinate for cardiomyopathy Continue aspirin Start atorvastatin 40 mg daily Continue anticoagulation with eliquis Patient is cleared for discharge from a cardiac standpoint Follow-up Holter monitor to assess for bradycardia Consider atrial flutter ablation in the future HPI/interval history Patient is a 69-year-old female past medical history of myxoma status post removal, PAD status post angioplasty, hypertension, dyslipidemia and diabetes who presented with palpitations and was found to be in atrial flutter with RVR. She underwent a coronary angiogram showing intermediate severe nonobstructive CAD. Yesterday she underwent a SARAH showing mildly impaired LV systolic func tion, EF around 45% with global hypokinesis and no evidence of thrombus. She subsequently underwent a successful cardioversion to sinus rhythm. EKG today showed sinus rhythm with right bundle branch block and left anterior fascicular block. Patient seen and examined resting in bed. States her symptoms of dizziness and palpitations have completely resolved. Her breathing has also improved. No chest pain. EXAMINATION Temperature 98.7F, pulse 59 respirations 18, blood pressure 135/59, oxygen saturation 91 percent on room air Patient seen and examined resting comfortably in bed, in no acute distress Lungs are clear to auscultation bilaterally Heart is regular,no murmurs noted No elevated JVD No lower extremity edema REVIEW OF LABS, ECG SARAH showed mildly impaired LV systolic function, EF 45%, global hypokinesis, moderate TR, mild to moderate MR WBC 6.3, hemoglobin 10.8, platelets 273, potassium 4.3, creatinine 1.21, BUN 13 Telemetry overnight showed some sinus bradycardia in the 40s, no pauses Objective - Vital Signs Vital signs: Vital Signs Temp 98.7 F 07/28/19 08:00 Pulse 59 L 07/28/19 08:00 Resp 18 07/28/19 08:00 BP 135/59 10/15/19 08:00 Pulse Ox 91 L 07/28/19 08:00 Intake & Output 07/27/19 07/28/19 07/28/19 18:59 06:59 18:59 Intake Total 1870 240 Balance 1870 240 Intake: IV 1510 Sodium Chloride 0.9% 1, 610 000 ml @ 20 mls/hr IV . Q24H [facility] Rx#:[id number] Oral 360 240 Other: # Voids 3 1 - Labs CBC & Chem 7: 07/27/19 05:40 07/26/19 05:33 Labs: Abnormal Lab Results - Last 24 Hours (Table) 07/27/19 07/27/19 07/27/19 Range/Units 12:54 16:20 21:04 POC Glucose (mg/dL) 129 H 251 H 278 H (75-99) mg/dL 07/28/19 Range/Units 06:28 POC Glucose (mg/dL) 123 H (75-99) mg/dL
[2019-07-28 12:03] LABS: Glucose,Whole Blood 134 mg/dL (75-99)
[2019-07-28] MEDS ORDERED: ATORVASTATIN 40 MG TAB PO SCH (21:00)
[2019-07-29] MEDS ORDERED: METOPROLOL SUCCINATE (ER) 25 MG TAB.ER.24H PO SCH (09:00)
[2019-07-29] MEDS ORDERED: AMIODARONE 200 MG TAB PO SCH (09:00)
== END 2019-07-28 14:30 | disposition home or self-care (01) | DRG 286 ==
LOC: EC 17:36 → 3SCARD 20:58
PROVIDERS: ADMIT Internal Medicine; ATTEND Internal Medicine
PROC: B2111ZZ Fluoroscopy of Multiple Coronary Arteries using Low Osmolar Contrast (ICD-10-PCS; 2019-07-25)
PROC: 4A023N7 Measurement of Cardiac Sampling and Pressure, Left Heart, Percutaneous Approach (ICD-10-PCS; principal; 2019-07-25 12:32)
PROC: 4A033BC Measurement of Arterial Pressure, Coronary, Percutaneous Approach (ICD-10-PCS; 2019-07-25 12:32)
PROC: 5A2204Z Restoration of Cardiac Rhythm, Single (ICD-10-PCS; 2019-07-27)
PROC: B24BZZ4 Ultrasonography of Heart with Aorta, Transesophageal (ICD-10-PCS; 2019-07-27)
DX: I48.3 Typical atrial flutter (principal); I50.33 Acute on chronic diastolic (congestive) heart failure; N17.9 Acute kidney failure, unspecified; E11.51 Type 2 diabetes mellitus with diabetic peripheral angiopathy without gangrene; I11.0 Hypertensive heart disease with heart failure; I42.8 Other cardiomyopathies; E83.42 Hypomagnesemia; I65.21 Occlusion and stenosis of right carotid artery; J44.9 Chronic obstructive pulmonary disease, unspecified; N18.3 Chronic kidney disease, stage 3 (moderate); I25.10 Atherosclerotic heart disease of native coronary artery without angina pectoris; I48.0 Paroxysmal atrial fibrillation; E86.0 Dehydration; E78.5 Hyperlipidemia, unspecified; K21.9 Gastro-esophageal reflux disease without esophagitis; R32 Unspecified urinary incontinence; F41.0 Panic disorder [episodic paroxysmal anxiety]; F41.9 Anxiety disorder, unspecified; M19.90 Unspecified osteoarthritis, unspecified site; I45.10 Unspecified right bundle-branch block; R40.2142 Coma scale, eyes open, spontaneous, at arrival to emergency department; R40.2362 Coma scale, best motor response, obeys commands, at arrival to emergency department; R40.2252 Coma scale, best verbal response, oriented, at arrival to emergency department; F17.210 Nicotine dependence, cigarettes, uncomplicated; Z71.6 Tobacco abuse counseling; Z79.82 Long term (current) use of aspirin; Z79.02 Long term (current) use of antithrombotics/antiplatelets; Z79.4 Long term (current) use of insulin; Z79.899 Other long term (current) drug therapy; Z86.018 Personal history of other benign neoplasm; Z98.890 Other specified postprocedural states; Z90.49 Acquired absence of other specified parts of digestive tract; Z86.79 Personal history of other diseases of the circulatory system; Z98.42 Cataract extraction status, left eye; Z98.41 Cataract extraction status, right eye; Z88.5 Allergy status to narcotic agent; Z91.048 Other nonmedicinal substance allergy status; Z83.3 Family history of diabetes mellitus; Z82.49 Family history of ischemic heart disease and other diseases of the circulatory system; Z83.49 Family history of other endocrine, nutritional and metabolic diseases; Z80.9 Family history of malignant neoplasm, unspecified
CPT/HCPCS: 36415; 71046; 78582; 80048; 80053; 81001; 83735; 84443; 84484; 85025; 85379; 85610; 85730; 92960; 93005; 93306; 93312; 93320; 93325; 93458; 93571; 94760; 96365; 96366; 96367; 96368; 96375; 96376; 99285

== ENCOUNTER → 2019-08-26 | Outpatient (CLI) | payer MEDICARE, OTHER ==
[2019-08-26 18:28] LABS: African American GFR (CKD) 60.2 (60.0-200.0); Anion Gap 7.2 mmol/L (4.00-12.00); BUN/Creat Ratio 9.09 Ratio (12.00-20.00); Calcium 9.1 mg/dL (8.7-10.3); Carbon Dioxide 32.8 mmol/L (21.6-31.8); Potassium 3.4 mmol/L (3.5-5.5)
[2019-08-26 19:06] LABS: Hemoglobin A1C 7.3 % (4.0-6.0)
== END | disposition home or self-care (01) ==
LOC: LABWHC1 11:51
PROVIDERS: ATTEND Internal Medicine
DX: E11.65 Type 2 diabetes mellitus with hyperglycemia (principal)
CPT/HCPCS: 36415; 80048; 83036

== ENCOUNTER → 2019-09-07 | Outpatient (CLI) | payer MEDICARE, OTHER ==
--- NOTE | 2019-09-07 15:53 | US ---
EXAMINATION TYPE: US venous doppler duplex UE LT DATE OF EXAM: 09/07/2019 COMPARISON: NONE CLINICAL HISTORY: R60.0 localized edema left upper arm. After IV, patient states having a lump. Has gone down in size per patient. On 2 different blood thinners. SIDE PERFORMED: Left Left Arm: Negative for DVT IMPRESSION: 1. Left upper extremity deep venous evaluation negative for deep venous thrombosis.
== END | disposition home or self-care (01) ==
LOC: RADUSWWP 13:44
PROVIDERS: ATTEND Family Medicine
DX: R60.0 Localized edema (principal)

== ENCOUNTER → 2019-10-01 | Outpatient (CLI) | payer MEDICARE, OTHER ==
--- NOTE | 2019-10-02 14:51 | MM ---
Reason for exam: screening (asymptomatic). Last mammogram was performed 1 year and 1 month ago. History: Patient is postmenopausal. Took hormonal contraceptives for 5 years. Physical Findings: A clinical breast exam by your physician is recommended on an annual basis and results should be correlated with mammographic findings. MG 3D Screening Mammo W/Cad Bilateral CC and MLO view(s) were taken. Prior study comparison: August 20, 2018, bilateral MG 3d screening mammo w/cad. July 22, 2017, right breast MG 3d work up w/cad RT. The breast tissue is heterogeneously dense. This may lower the sensitivity of mammography. There is no discrete abnormality. No significant changes when compared with prior studies. ASSESSMENT: Negative, BI-RAD 1 RECOMMENDATION: Routine screening mammogram of both breasts in 1 year.
== END | disposition home or self-care (01) ==
LOC: RADMAMWWP 08:18
PROVIDERS: ATTEND Family Medicine
DX: Z12.31 Encounter for screening mammogram for malignant neoplasm of breast (principal)
CPT/HCPCS: 77063; 77067

== ENCOUNTER → 2019-12-22 | Outpatient (CLI) | payer MEDICARE, OTHER ==
[2019-12-22 16:57] LABS: African American GFR (CKD) 49.2 (60.0-200.0); Albumin 3.8 g/dL (3.80-4.90); Albumin/Globulin Ratio 1.9 (1.60-3.17); Anion Gap 5.4 mmol/L (4.00-12.00); BUN/Creat Ratio 14.62 Ratio (12.00-20.00); Calcium 9.1 mg/dL (8.7-10.3); Carbon Dioxide 29.6 mmol/L (21.6-31.8); Chol/HDL Ratio 3.16; LDL Cholesterol,Calculated 58.6 mg/dL (0.0-131.0); Non-African American GFR(CKD) 42.4 (60.0-200.0); Potassium 4.2 mmol/L (3.5-5.5); Total Bilirubin 0.4 mg/dL (0.3-1.2); Total Protein 5.8 g/dL (6.2-8.2); VLDL Calculation 23.4 mg/dL (5.00-40.00)
[2019-12-22 18:10] LABS: Hemoglobin A1C 8.3 % (4.0-6.0)
== END | disposition home or self-care (01) ==
LOC: LABWHC1 09:24
PROVIDERS: ATTEND Internal Medicine
DX: E11.65 Type 2 diabetes mellitus with hyperglycemia (principal)
CPT/HCPCS: 36415; 80053; 80061; 83036

== ENCOUNTER → 2020-03-30 | Outpatient (CLI) | payer MEDICARE, OTHER ==
[2020-03-30 18:19] LABS: Hemoglobin A1C 7.4 % (4.0-6.0)
== END | disposition home or self-care (01) ==
LOC: LABWHC1 08:32
PROVIDERS: ATTEND Internal Medicine
DX: E11.65 Type 2 diabetes mellitus with hyperglycemia (principal)
CPT/HCPCS: 36415; 83036

== ENCOUNTER → 2020-05-18 | Outpatient (CLI) | payer MEDICARE, OTHER ==
--- NOTE | 2020-05-18 16:52 | XR ---
EXAMINATION TYPE: XR knee complete LT DATE OF EXAM: 05/18/2020 CLINICAL HISTORY: Anterior mid knee pain after fall one to 2 weeks ago TECHNIQUE: Three views of the left knee are obtained. COMPARISON: None. FINDINGS: There is no acute fracture/dislocation evident in left knee. There is mild lateral compart ment and patellofemoral degenerative spurring. Small patellar joint effusion. Decreased osseous claim examiner alization. Vascular stents and vascular calcifications. IMPRESSION: 1. No acute fracture or dislocation in the left knee. 2. Small suprapatellar joint effusion. 3. Bicompartmental osteoarthrosis. 4. Decreased osseous mineralization.
== END | disposition home or self-care (01) ==
LOC: RADXRYALE 10:41
PROVIDERS: ATTEND Physician Assistant Medical
DX: M17.12 Unilateral primary osteoarthritis, left knee (principal)

== ENCOUNTER → 2020-07-11 | Outpatient (CLI) | payer MEDICARE, OTHER ==
[2020-07-11 16:05] LABS: ALT 10 U/L (4-34); AST 15 U/L (14-36); African American GFR (CKD) 53 (>60 ml/min/1.73 sqM); Albumin 3.4 g/dL (3.5-5.0); Albumin/Globulin Ratio 1.4; Alkaline Phosphatase 63 U/L (38-126); Anion Gap 3 mmol/L; Blood Urea Nitrogen 11 mg/dL (7-17); Carbon Dioxide 31 mmol/L (22-30); Chloride 105 mmol/L (98-107); Globulin 2.5 g/dL; Glucose 165 mg/dL (74-99); Magnesium 1.6 mg/dL (1.6-2.3); Non-African American GFR(CKD) 46 (>60 ml/min/1.73 sqM); Potassium 3.6 mmol/L (3.5-5.1); Sodium 139 mmol/L (137-145); Total Bilirubin 0.5 mg/dL (0.2-1.3); Total Protein 5.9 g/dL (6.3-8.2)
[2020-07-11 16:21] LABS: Cholesterol 136 mg/dL (<200); HDL Cholesterol 39 mg/dL (40-60); LDL Cholesterol,Calculated 61 mg/dL (0-99); Triglycerides 181 mg/dL (<150)
== END | disposition home or self-care (01) ==
LOC: LABWHC1 14:50
PROVIDERS: ATTEND Nurse Practitioner Adult Health
DX: I10 Essential (primary) hypertension (principal); E78.5 Hyperlipidemia, unspecified
CPT/HCPCS: 36415; 80053; 80061; 83735; 84439; 84443; 84481

== ENCOUNTER → 2021-02-28 | Outpatient (CLI) | payer MEDICARE, OTHER ==
[2021-02-28 17:10] LABS: Hemoglobin A1C 5.9 % (4.0-6.0)
[2021-02-28 18:26] LABS: African American GFR (CKD) 53.8 (60.0-200.0); Anion Gap 8.2 mmol/L (4.00-12.00); BUN/Creat Ratio 13.33 Ratio (12.00-20.00); Calcium 9.2 mg/dL (8.7-10.3); Carbon Dioxide 27.8 mmol/L (21.6-31.8); Chol/HDL Ratio 5.61; Non-African American GFR(CKD) 46.4 (60.0-200.0); Potassium 4.1 mmol/L (3.5-5.5)
[2021-02-28 18:46] LABS: Urine Creatinine 87.7 mg/dL
== END | disposition home or self-care (01) ==
LOC: LABWHC1 09:23
PROVIDERS: ATTEND Internal Medicine
DX: E11.65 Type 2 diabetes mellitus with hyperglycemia (principal)
CPT/HCPCS: 36415; 80048; 80061; 82043; 82570; 83036

== ENCOUNTER → 2021-06-02 | Outpatient (CLI) | payer MEDICARE, OTHER ==
[2021-06-02 21:11] LABS: Hemoglobin A1C 6.1 % (4.0-6.0)
== END | disposition home or self-care (01) ==
LOC: LABWHC1 09:46
PROVIDERS: ATTEND Family Medicine
DX: E11.65 Type 2 diabetes mellitus with hyperglycemia (principal)
CPT/HCPCS: 36415; 82947; 83036

== ENCOUNTER → 2021-11-10 | Outpatient (CLI) | payer MEDICARE, OTHER ==
[2021-11-10 16:46] LABS: Chol/HDL Ratio 6.26 Ratio; LDL Cholesterol,Calculated 112.1 mg/dL (0.0-131.0)
== END | disposition home or self-care (01) ==
LOC: LABWHC1 08:54
PROVIDERS: ATTEND Internal Medicine
DX: E78.5 Hyperlipidemia, unspecified (principal); E11.65 Type 2 diabetes mellitus with hyperglycemia
CPT/HCPCS: 36415; 80061; 83036

== ENCOUNTER → 2022-08-02 | Outpatient (CLI) | payer MEDICARE, OTHER ==
[2022-08-02 14:41] LABS: African American GFR (CKD) 48.1 (60.0-200.0); Anion Gap 8.4 mmol/L (10.00-18.00); BUN/Creat Ratio 12.08 Ratio (12.00-20.00); Blood Urea Nitrogen 15.7 mg/dL (9.0-27.0); Calcium 9.2 mg/dL (8.7-10.3); Carbon Dioxide 26.6 mmol/L (20.0-27.5); Non-African American GFR(CKD) 41.5 (60.0-200.0); Potassium 4.4 mmol/L (3.5-5.5)
== END | disposition home or self-care (01) ==
LOC: LABWHC1 09:53
PROVIDERS: ATTEND Internal Medicine
DX: E11.65 Type 2 diabetes mellitus with hyperglycemia (principal)
CPT/HCPCS: 36415; 80048; 82043; 82570; 83036

== ENCOUNTER → 2022-12-28 | Day surgery (SDC) | payer MEDICARE, OTHER ==
--- NOTE | 2023-01-04 11:00 | MM ---
Reason for Exam: Post Procedure Mammogram. Last screening mammogram was performed less than 1 month ago. Patient History: Menarche at age 18. First Full-Term at age 21. Postmenopausal. Patient used Hormonal Contraceptives for 5 years. Risk Values: Sally 5 year model risk: 1.1%. NCI Lifetime model risk: 3.3%. Prior Study Comparison: 07/11/2017 Bilateral Screening Mammogram, [facility]. 07/22/2017 Right Diagnostic Mammogram, [facility]. 08/20/2018 Bilateral Screening Mammogram, [facility]. 10/01/2019 Bilateral Screening Mammogram, [facility]. 12/18/2022 Left MG 3D work up w/cad LT, [facility]. 12/18/2022 Bilateral MG 3D screening mammo w/cad, [facility]. Tissue Density: Left: There are scattered fibroglandular densities. Pathology Description: Location: 2 o'clock. Marker Left Behind. Needle Type: Mammotome Cores: 4 Skin Nicks: 1 Gauge: 13 The procedure of ultrasound guided core biopsy was explained to the patient. Benefits, alternatives, and risks were discussed. An informed consent was then obtained. The patient was placed in supine positioning for imaging and for the procedure. The overlying skin was prepped and draped in usual sterile fashion. Lidocaine buffered with epinephrine was used as anesthetic into the skin and subcutaneous tissue up to area of concern in the left breast. A maurisio was made with surgical scalpel. Under ultrasound guidance, a 12-gauge vacuum assisted biopsy gun device was used to obtain 4 core samples. Following this, a biopsy clip was left in lesion. The patient tolerated the procedure without any immediate complication. The patient did experience significant pain during the procedure despite lidocaine administration. The patient was kept in the radiology department for short stay after the procedure and then discharged home in stable condition. Postprocedure mammogram: The patient was transferred to mammography for physician ordered post procedure mammogram for clip placement verification. The biopsy clip has migrated approximately 3 to 4 mm posterior inferior to the dominant spiculated mass within the left breast. Impression: Successful, uncomplicated ultrasound guided core biopsy of area of concern in the left breast, full pathology results to follow. Pathology Results: Result: Malignant, Invasive ductal carcinoma. LEFT BREAST, 2:00, ULTRASOUND GUIDED NEEDLE CORE BIOPSY: Invasive well differentiated ductal carcinoma (Grade 1). See Surgical Pathology Cancer Case Summary and Comment. Overall Assessment: Malignant Assessment: MG diagnostic mammo LT wo CAD. - Left: Known biopsy proven malignancy, BI-RAD 6. Management: Surgical Consultation of the left breast. Electronically signed and approved by: Santi Montiel D.O.
== END ==
LOC: RADUSWWP 10:11
PROVIDERS: ATTEND Surgery
DX: C50.412 Malignant neoplasm of upper-outer quadrant of left female breast (principal); Z78.0 Asymptomatic menopausal state
CPT/HCPCS: 88305; 88342; 88341; 77065; 19083; A4648

== ENCOUNTER → 2023-01-04 | Outpatient (CLI) | payer MEDICARE, OTHER ==
[2023-01-04 12:08] VITALS: BP 146/77; PULSE 109; RESP 18; TEMP 98
--- NOTE | 2023-01-04 12:31 | P.GSHP ---
History of Present Illness H&P Date: 01/04/23 Chief Complaint: left breast invasive ductal cancer Marilyn is a 72 year old white female seen in consultation for DR. Barajas regarding a biopsy proven left breast invasive ductal cancer. She had a bilateral mammogram on 12-18-22 which led to a left breast diagnostic mammogram ultrasound. Nothing of concern was seen on the right side. A biopsy was done on 12-28-22 which was a G1 invasive ductal cancer. ER+Pr+Her2-. She had felt a lump in her left breast several months ago. The mammogram was a routine screening mammogram. She states she also noted that her nipple was pulling and on the left side for several months. She had not had a mammogram since 2019. S he had never had any surgery on her breast. Has not had any recent trauma or infection in her breast. Caffeine: 3 cups/day nicotine: 1/2 PPD since chocolate: none BCP: 4 years in the s Family History: maternal aunt: lung cancer paternal aunt: lymphoma sister: cervical father: melanoma maternal cousin: leukemia maternal cousin: lymphoma Hormonal History: menarche: 18 M1, breast fed: no, age at firts : 21 menopause: 53 Surgical History: myxoma back surgery carotid artery surgery gallbladder stints left leg Medical History: HTN anxiety diabetes Social History: Nicotine: as above alcohol: occasional, used to drink on weekends drugs: none - Constitutional Constitutional: Denies chills, Denies fever - EENT Eyes: denies blurred vision, denies pain Ears: bilateral: decreased hearing, tinnitus Ears, nose, mouth and throat: Denies headache, Denies sore throat - Breasts Breasts: bilateral: as per HPI - Cardiovascular Cardiovascular: Reports as per HPI - Respiratory Respiratory: Reports cough - Gastrointestinal Gastrointestinal: Denies abdominal pain, Denies diarrhea, Denies nausea, Denies vomiting - Genitourinary (Female) Comment: UTI Genitourinary: Denies dysuria, Denies hematuria - Menstruation Menstruation: Reports postmenopausal - Musculoskeletal Musculoskeletal: Reports myalgias - Integumentary Integumentary: Denies pruritus, Denies rash - Neurological Neurological: Denies numbness, Denies weakness - Psychiatric Psychiatric: Reports anxiety, Reports depression - Endocrine Endocrine: Reports weight change, Denies fatigue - Hematologic/Lymphatic Comment: on Eliquis since heart surgery for myxoma 2007 - Allergic/Immunologic Allergic/Immunologic: Reports seasonal allergies Past Medical History Past Medical History: COPD, Diabetes Mellitus, GERD/Reflux, Hyperlipidemia, Hypertension, Osteoarthritis (OA), Vascular Disorder Additional Past Medical History / Comment(s): Carotid artery disease bilateral, diabetes mellitus, hypertension and hyperlipidemia, osteoarthritis, 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 History of Any Multi-Drug Resistant Organisms: None Reported Past Surgical History: Appendectomy, Back Surgery, Cholecystectomy, Heart Catheterization, Orthopedic Surgery Additional Past Surgical History / Comment(s): Resection of an atrial myxoma/open heart for removal of tumor on the heart 2007, arthroscopic bilateral knees, left carotid endarterectomy 2014, cyst removed from left ovary, devyn cataracts Past Anesthesia/Blood Transfusion Reactions: No Reported Reaction Past Psychological History: Anxiety, Panic Disorder Additional Psychological History / Comment(s): claustrophobic Smoking Status: Current every day smoker Past Alcohol Use History: Rare Additional Past Alcohol Use History / Comment(s): smokes 1/2 PPD, smoked since age 19 Past Drug Use History: None Reported - Past Family History Mother Family Medical History: Diabetes Mellitus, Hyperlipidemia, Hypertension Sister(s) Family Medical History: Cancer Medications and Allergies Home Medications Medication Instructions Recorded Confirmed Type Esomeprazole Magnesium [NexIUM] 40 mg PO DAILY 03/23/14 01/04/23 History Ergocalciferol [Vitamin D2 50,000 unit PO Q14D 03/26/18 01/04/23 History (DRISDOL)] Escitalopram [Lexapro] 10 mg PO HS 03/26/18 01/04/23 History Ipratropium/Albuterol Sulfate 2 puff INHALATION RT-QID PRN 03/26/18 01/04/23 History [Combivent Respimat Inhaler] Pioglitazone [Actos] 15 mg PO DAILY 01/19/19 01/04/23 History Apixaban [Eliquis] 5 mg PO BID #60 tab 07/28/19 01/04/23 Rx Atorvastatin [Lipitor] 40 mg PO HS #30 tab 07/28/19 01/04/23 Rx Enalapril [Vasotec] 20 mg PO BID 12/19/22 01/04/23 History Furosemide [Lasix] 20 mg PO DAILY 12/19/22 01/04/23 History Insulin Degludec [Tresiba] 15 units SQ HS 12/19/22 01/04/23 History Oxybutynin Chloride [Ditropan XL] 5 mg PO DAILY 12/19/22 01/04/23 History Semaglutide [Ozempic] 2 mg SQ DAILY 12/19/22 01/04/23 History Spironolactone 25 mg PO DAILY 12/19/22 01/04/23 History hydrALAZINE HCL [Apresoline] 50 mg PO BID 12/19/22 01/04/23 History Allergies Allergy/AdvReac Type Severity Reaction Status Date / Time codeine Allergy Chest Pain Verified 01/04/23 12:04 dogs,horses,mold Allergy RUNNY NOSE Uncoded 01/04/23 12:04 Surgical - Exam Vital Signs Temp Pulse Resp BP Pulse Ox 98.0 F 109 H 18 146/77 99 01/04/23 12:04 01/04/23 12:04 01/04/23 12:04 01/04/23 12:04 01/04/23 12:04 - General no distress - Eyes normal ocular movement - Neck trachea midline - Respiratory normal respiratory effort, clear to auscultation - Cardiovascular Heart Sounds: normal: S1, S2 - Abdomen Abdomen: soft, non tender, no guarding, no rigid, no rebound - Integumentary normal turgor - Neurologic no disoriented, no combative - Musculoskeletal normal gait - Psychiatric oriented to time, oriented to person, oriented to place, speech is normal, memory intact Beast Exam: BRA: sports medium inspection: Mild ecchymosis near biopsy site and left breasts, bilateral grade 2 ptosis, no marked nipple inversion on the left Palpation: Right breast: Multi-positional exam fibrocystic changes no dominant masses or nodules of concern Right axilla: No adenopathy of concern Left breast: Fullness behind the nipple areolar complex, no dominant masses or nodules of concern otherwise Left axilla: No adenopathy of concern Results Mammogram and ultrasound personally reviewed Assessment and Plan Assessment: Impression: myxoma back surgery carotid artery surgery gallbladder stints left leg Hypertension Anxiety Diabetes Stage I left breast invasive ductal carcinoma Plan: Presentation of case at tumor board Probable left breast lumpectomy and sentinel node biopsy CC: DR. Barajas
== END ==
LOC: WWCWWP 11:43
PROVIDERS: ATTEND Surgery
DX: C50.912 Malignant neoplasm of unspecified site of left female breast (principal); E11.36 Type 2 diabetes mellitus with diabetic cataract; E11.51 Type 2 diabetes mellitus with diabetic peripheral angiopathy without gangrene; E78.5 Hyperlipidemia, unspecified; F17.210 Nicotine dependence, cigarettes, uncomplicated; I10 Essential (primary) hypertension; J44.9 Chronic obstructive pulmonary disease, unspecified; K21.9 Gastro-esophageal reflux disease without esophagitis; M19.90 Unspecified osteoarthritis, unspecified site; Z17.0 Estrogen receptor positive status [ER+]; Z79.01 Long term (current) use of anticoagulants; Z79.4 Long term (current) use of insulin; Z79.84 Long term (current) use of oral hypoglycemic drugs; F41.9 Anxiety disorder, unspecified; Z80.1 Family history of malignant neoplasm of trachea, bronchus and lung; Z83.49 Family history of other endocrine, nutritional and metabolic diseases; Z83.3 Family history of diabetes mellitus; Z86.018 Personal history of other benign neoplasm; Z82.49 Family history of ischemic heart disease and other diseases of the circulatory system; Z90.49 Acquired absence of other specified parts of digestive tract; Z90.721 Acquired absence of ovaries, unilateral; Z88.5 Allergy status to narcotic agent; Z91.02 Food additives allergy status; Z91.09 Other allergy status, other than to drugs and biological substances; F17.200 Nicotine dependence, unspecified, uncomplicated

== ENCOUNTER 2023-02-26 08:13 | Day surgery (SDC) | payer MEDICARE, OTHER ==
[~2023-02-26 08:13] MED LIST changes: -ASPIRIN 325 MG TAB PO STA; +HEPARIN SODIUM,PORCINE/PF 5,000 UNIT/0.5 ML SYRINGE SQ PRN; +Pre Op ABX Message 1 EACH MISC MISCELLANE ONE; -SODIUM CHLORIDE 0.9% 1,000 ML in EMPTY BAG 1 BAG IV ONE
[2023-02-26] MEDS ORDERED: LACTATED RINGERS 1,000 ML IV SCH (08:33)
[2023-02-26] MEDS ORDERED: MIDAZOLAM 2 MG/2 ML VIAL IV PRN (08:33)
[2023-02-26] MEDS ORDERED: ONDANSETRON 4 MG/2 ML VIAL IVP ONE (08:33)
[2023-02-26] MEDS ORDERED: DEXAMETHASONE SOD PHOSPHATE 4 MG/ML 1 ML VIAL IV ONE (08:33)
[2023-02-26] MEDS ORDERED: LIDOCAINE 1% (10MG/ML) FOR IV START INTRADERMA PRN (08:33)
[2023-02-26] MEDS ORDERED: HYDROmorphone 0.5 MG/0.5 ML SYRINGE IVP PRN (08:33)
[2023-02-26 09:21] LABS: Glucose,Whole Blood 85 mg/dL (70-110)
[2023-02-26] MEDS ORDERED: ALPRAZolam 0.25 MG TAB ONE (09:22)
[2023-02-26 09:26] LABS: Basophils % (A) 1 %; Eosinophils # (A) 0.1 k/uL (0-0.7); Eosinophils % (A) 2 %; Lymphocytes # (A) 1.9 k/uL (1.0-4.8); Lymphocytes % (A) 22 %; MCH 30.1 pg (25.0-35.0); MCHC 32.6 g/dL (31.0-37.0); MCV 92.2 fL (80.0-100.0); Mean Platelet Volume 7.1; Monocytes # (A) 0.4 k/uL (0-1.0); Monocytes % (A) 4 %; Neutrophils # (A) 6.1 k/uL (1.3-7.7); Neutrophils % (A) 70 %; Platelet Count 311 k/uL (150-450); RBC 4.34 m/uL (3.80-5.40); RDW 14.8 % (11.5-15.5); WBC 8.8 k/uL (3.8-10.6)
[2023-02-26 09:40] LABS: Calcium 9.1 mg/dL (8.4-10.2); Potassium 4.3 mmol/L (3.5-5.1)
[2023-02-26] MEDS ORDERED: LIDOCAINE 1% (10MG/ML) FOR IV START SQ ONE (09:52)
--- NOTE | 2023-02-26 09:59 | P.NAPBC ---
NAPBC Queries - NAPBC Queries Was patient's case review presented at [facility] tumor board? If no, comment.: Yes Was patient's pathology reviewed at [facility]? If no, comment.: Yes Was breast conservation surgery offered? If no, comment.: Yes Was sentinel node biopsy offered? If no, comment.: Yes Was diagnosis confirmed by percutaneous core biopsy? If no, comment.: Yes Is patient mastectomy patient?: No Was a preop referral to reconstructive surgeon offered?: No Clinical Stage: left breast Stage I invasive ductal cancer
[2023-02-26] MEDS ORDERED: ePHEDrine 50 MG/ML 1 ML VIAL ONE (10:37)
[2023-02-26] MEDS ORDERED: PROPOFOL 10 MG/ML 20 ML VIAL IV ONE (10:37)
[2023-02-26] MEDS ORDERED: fentaNYL (PF) 50 MCG/ML 2 ML AMP ONE (10:37)
[2023-02-26] MEDS ORDERED: HEPARIN SODIUM,PORCINE 5,000 UNIT/ML 1 ML VIAL ONE (10:37)
[2023-02-26] MEDS ORDERED: LIDOCAINE 2% INJ 20 MG/ML (2 ML VIAL) ONE (10:37)
[2023-02-26] MEDS ORDERED: SUCCINYLCHOLINE CHLORIDE 200 MG/10 ML VIAL IV ONE (10:37)
[2023-02-26] MEDS ORDERED: METHYLENE BLUE 50 MG/10 ML AMPUL MISCELLANE ONE (11:00)
--- NOTE | 2023-02-26 12:30 | P.OP ---
Date of Procedure: 02/26/23 Preoperative Diagnosis: Left breast invasive ductal carcinoma stage I Postoperative Diagnosis: Same Procedure(s) Performed: Left breast sentinel node mapping, left breast sentinel node biopsy, left breast needle localization central lumpectomy with hyperplastic tissue transfer, 80 cm Anesthesia: MOEA Surgeon: Sarah Mckenzie Estimated Blood Loss (ml): 10 IV fluids (ml): 800 Pathology: other (Left sentinel node, left breast lumpectomy) Condition: stable Disposition: same day Indications for Procedure: Biopsy-proven left breast invasive ductal carcinoma posterior to the nipple areolar complex Operative Findings: Dense breast tissue Description of Procedure: The patient was initially seen in the radiology department. Needle localization of the area of concern was performed. Radio tracer was injected in the periareolar region. The patient was brought to the operative suite. Following induction of anesthesia the left axilla was interrogated. There was minimal radioactivity in the axilla. Therefore 5 mL of 50% methylene blue was injected in the periareolar region and the breast was massaged. Following this the left breast and axilla were prepped and draped in a sterile fashion. Using the neoprobe there was an area of radioactivity identified and an incision was made. Incision was carried down into the deeper axillary tissues. Using the neoprobe for orientation an area of increased radioactivity was noted on the lateral chest wall. This was grasped using an Allis clamp. This was also noted to be blue in coloration. The tissue was excised. The 10 second count on this tissue was 4644. The Harmonic Scalpel was utilized. After we were assured that hemostasis was attained the area was again evaluated. The background count at 10 seconds on the neoprobe was 32. No palpable adenopathy of concern was identified. The deep tissues were closed using 3-0 Vicryl suture. This is followed by his closure of the subcutaneous tissue with 3-0 Vicryl suture. A 4 Monocryl was used to close the subcutaneous tissue. Following this the area of the breast was approached. A marking pen was used to crow the area for resection. Preoperatively we had determined to do a central lumpectomy with removal of the nipple areolar complex. The incision was made and the tumor appeared to extend close under the nipple areolar complex. This was therefore excised with the specimen. Dissection was performed in a circumferential fashion around the nipple areolar complex. The area of the needle was identified. The bresaet tissue at this site was widely excised. Anterior dissection was performed removing the skin and posterior dissection onto the pectoralis major muscle. After the specimen was completely excised it was painted for orientation. Radiograph revealed the area of concern had been removed. Titanium clips were placed. The cavity was 8 x 4 cm. Superiorly an 8 centimeter by 4 cm superior pillar was dissected. Inferiorly an 8 x 3 cm pillar was dissected. Total onco-plastic tissue transfer was 80 cm. Surgicel in powder form was placed in the cavity. The pillars were brought together using 3-0 Vicryl suture. The subcutaneous tissue was closed with 3-0 Vicryl suture. The subcuticular tissue was closed with 4-0 Monocryl. The patient tolerated the procedure in stable condition. All instrument and sponge counts were correct at the end of the case.
--- NOTE | 2023-02-26 12:33 | P.DS ---
Providers Attending physician: Sarah Mckenzie Primary care physician: Jaden Barajas Plan - Discharge Summary Discharge Rx Participant: No New Discharge Prescriptions: New HYDROcodone/APAP 5-325MG [[place] 5] 1 - 2 each PO Q6HR PRN #20 tab PRN Reason: Pain No Action Escitalopram [Lexapro] 20 mg PO HS Pioglitazone [Actos] 15 mg PO QAM Apixaban [Eliquis] 5 mg PO BID #60 tab Semaglutide [Ozempic] 2 mg SQ TH Enalapril [Vasotec] 20 mg PO BID Furosemide [Lasix] 20 mg PO QAM Rosuvastatin [Crestor] 40 mg PO HS Omeprazole 40 mg PO QAM Spironolactone 5 mg PO QAM hydrALAZINE HCL [Apresoline] 50 mg PO TID Oxybutynin Chloride [Ditropan XL] 5 mg PO QAM Insulin Degludec [Tresiba] 20 units SQ HS Discharge Medication List Escitalopram [Lexapro] 20 mg PO HS 03/26/18 [History] Pioglitazone [Actos] 15 mg PO QAM 01/19/19 [History] Apixaban [Eliquis] 5 mg PO BID #60 tab 07/28/19 [Rx] Enalapril [Vasotec] 20 mg PO BID 12/19/22 [History] Furosemide [Lasix] 20 mg PO QAM 12/19/22 [History] Insulin Degludec [Tresiba] 20 units SQ HS 12/19/22 [History] Oxybutynin Chloride [Ditropan XL] 5 mg PO QAM 12/19/22 [History] Semaglutide [Ozempic] 2 mg SQ TH 12/19/22 [History] Spironolactone 5 mg PO QAM 12/19/22 [History] hydrALAZINE HCL [Apresoline] 50 mg PO TID 12/19/22 [History] Omeprazole 40 mg PO QAM 02/22/23 [History] Rosuvastatin [Crestor] 40 mg PO HS 02/22/23 [History] HYDROcodone/APAP 5-325MG [[place] 5] 1 - 2 each PO Q6HR PRN #20 tab 02/26/23 [Rx] Follow up Appointment(s)/Referral(s): Sarah Mckenzie MD [STAFF PHYSICIAN] - 1 Week Activity/Diet/Wound Care/Special Instructions: do not drive for 24 hours from discharge, do not drive if taking narcotic pain medicine may shower after 48 hours may restart eliquis 24 hours from discharge wear bra at all times Discharge Disposition: HOME SELF-CARE
[2023-02-26 12:44] LABS: Glucose,Whole Blood 104 mg/dL (70-110)
[2023-02-26 12:47] VITALS: TEMP 97.8
[2023-02-26] MEDS: hydrALAZINE HCL 20 MG/ML 1 ML VIAL IV ONE ×2 (13:02→13:23)
[2023-02-26] MEDS ORDERED: droPERidol 5 MG/2 ML VIAL IVP ONE (13:24)
[2023-02-26 13:53] VITALS: RESP 20
--- NOTE | 2023-02-26 14:57 | NM ---
EXAMINATION TYPE: NM sentinel node injection DATE OF EXAM: 02/26/2023 COMPARISON: 12/28/2022 CLINICAL INDICATION: Female, 72 years old with history of C50.412 MALIGNANT NEOPLASM OF UPPER-OUTER Q UADRANT; TECHNIQUE AND FINDINGS: The procedure of sentinel lymph node injection was explained to the patient. The benefits, alternatives, and risks were discussed. An informed consent was then obtained. Overlying skin is cleaned with sterile alcohol. Following this, 505 uCi Tc99m Tilmanocept was inject ed in the upper outer aspect of the left nipple intradermally. The patient tolerated the procedure well without any immediate complication. The patient was kept in the radiology department for short stay after the procedure and then taken to surgery for surgical p rocedure what is presumed intraoperative gamma probe will be used for sentinel lymph node detection. IMPRESSION: Left breast radiotracer injection for sentinel node localization as above.
[2023-02-26 15:43] VITALS: BP 144/70; PULSE 90
--- NOTE | 2023-03-06 08:42 | MM ---
Pathology Description: Approach: CC FA Needle Type: 5 cm Kopan The procedure of needle localization with wire placement and than surgical excision was explained to the patient. Benefits, alternatives, and risks were discussed. An informed consent was then obtained. The shortest pathway for procedure was chosen. Shortest pathway was a superior approach. The overlying skin was prepped and draped in usual sterile fashion. Lidocaine was used as anesthetic into the skin and subcutaneous tissue up to the level of area of concern. A 5 cm Kopan's needle was used. It was placed via a superior approach under mammographic guidance. Subsequent 90 degrees mammogram show the needle to be in satisfactory position relative to the targeted area. At this point, wire was placed and the needle was withdrawn. The wire was fixed to patient's skin. Images were marked for surgeon. The patient tolerated the procedure well without any immediate complication. The patient was kept in the radiology department for short stay after the procedure and then taken to surgery for surgical excision. Targeted mass, clip, and wire are identified in specimen mammogram. The patient was kept in hospital for short stay after the procedure and then discharged home in stable condition. IMPRESSION: Successful, uncomplicated needle localization with wire placement and surgical excision of biopsy-proven breast cancer in the left breast, full pathology results to follow. Pathology Results: Result: Malignant, Invasive ductal carcinoma. A. SENTINEL LYMPH NODE LEFT BREAST: Lymph node negative for metastasis. CK7 and TOMASA immunoperoxidase stains performed on blocks A1 and A2 are confirmation (controls appropriate). B. ADDITIONAL AXILLARY TISSUE, LEFT BREAST: Benign fibroadipose tissue. No lymph node is identified. C. LEFT BREAST, LUMPECTOMY: Invasive well differentiated ductal carcinoma (Grade 1), margins negative. See Surgical Pathology Cancer Case Summary. Notes SURGICAL PATHOLOGY CANCER CASE SUMMARY - INVASIVE CARCINOMA OF THE BREAST, RESECTION: PROCEDURE: Excision (less than total mastectomy). SPECIMEN LATERALITY: Left. HISTOLOGIC TYPE OF INVASIVE CARCINOMA: Invasive carcinoma of no special type (ductal). HISTOLOGIC GRADE (ANNIA HISTOLOGIC SCORE): GLANDULAR (ACINAR)/TUBULAR DIFFERENTIATION: Score 2. NUCLEAR PLEOMORPHISM: Score 2. MITOTIC RATE: Score 1. OVERALL GRADE: Grade 1 (total score 5). TUMOR SIZE: Greatest dimension of invasive carcinoma measures 1.5 cm. DUCTAL CARCINOMA IN SITU (DCIS): Not identified. TREATMENT EFFECT: No known presurgical therapy. MARGINS: INVASIVE CARCINOMA: All margins negative for invasive carcinoma. DISTANCE FROM CLOSEST MARGIN: 7 mm from superior and posterior margins. REGIONAL LYMPH NODES: NUMBER OF LYMPH NODES EXAMINED: 1. NUMBER OF SENTINEL NODES EXAMINED: 1. NUMBER OF LYMPH NODES WITH MACROMETASTASES, MICROMETASTASES, OR ISOLATED TUMOR CELLS: 0. PATHOLOGIC STAGE CLASSIFICATION (pTNM, AJCC 8TH Edition): PRIMARY TUMOR: pT1c. REGIONAL LYMPH NODES: (sn)pN0. DISTANT METASTASIS: Not applicable. ADDITIONAL FINDINGS: Focal perineural invasion is identified. Background fibrocystic changes and previous biopsy site ANCILLARY STUDIES: [place], [place], HER2 and Ki-67 studies were performed on the previous core biopsy ([id number]). Overall Assessment: Malignant Management: Surgical Consultation of the left breast. Electronically signed and approved by: Kody Nelson M.D. Radiologist
== END 2023-02-26 15:44 | disposition home or self-care (01) ==
LOC: OR 08:13
PROVIDERS: ATTEND Surgery
DX: C50.412 Malignant neoplasm of upper-outer quadrant of left female breast (principal); I10 Essential (primary) hypertension; E78.5 Hyperlipidemia, unspecified; J44.9 Chronic obstructive pulmonary disease, unspecified; F17.210 Nicotine dependence, cigarettes, uncomplicated; E11.9 Type 2 diabetes mellitus without complications; Z90.49 Acquired absence of other specified parts of digestive tract; Z98.890 Other specified postprocedural states; Z88.5 Allergy status to narcotic agent; Z79.899 Other long term (current) drug therapy
CPT/HCPCS: 38525; 19301; 38900; 14301; 14302; 80048; 85025; 88342; 88307; 88341; 76098; 38792; C1819; A9520; J0330; J0360; J1644 ×2; J1100; J0690; J2405; J3010; J2704; Q9968; J1790; J2001

== ENCOUNTER → 2023-03-07 | Outpatient (CLI) | payer MEDICARE, OTHER ==
[2023-03-07 12:31] VITALS: BP 184/74; PULSE 71; RESP 18; TEMP 97.8
--- NOTE | 2023-03-07 12:39 | P.PN ---
Progress Note - Text Progress Note Date: 03/07/23 Marilyn is status post left breast lumpectomy adn SNB on 02-27-23. Her tumor was 1.5 cm invasive ductal cancer, margins negative, one node (-). She did well without complaints at this time. Physical Exam: Lungs: Slight decreased breath sounds at the left base Heart: S1-S2 Incision: Axilla and breast clean and dry Impression: Patient doing well postoperative Plan: Follow up radiation oncology Follow-up medical oncology Follow-up here in 4 months CC: Dr. Salazar
== END ==
LOC: WWCWWP 12:16
PROVIDERS: ATTEND Surgery
DX: Z85.3 Personal history of malignant neoplasm of breast (principal); Z88.5 Allergy status to narcotic agent; Z91.09 Other allergy status, other than to drugs and biological substances; F17.200 Nicotine dependence, unspecified, uncomplicated

== ENCOUNTER → 2023-03-29 | Outpatient (CLI) | payer MEDICARE, OTHER ==
[2023-03-29 16:48] LABS: ALT 15 U/L (8-44); AST 16 U/L (13-35); Albumin/Globulin Ratio 1.67 Ratio (1.60-3.17); Alkaline Phosphatase 84 U/L (41-126); Blood Urea Nitrogen 24.9 mg/dL (9.0-27.0); Calcium 9.5 mg/dL (8.7-10.3); Carbon Dioxide 22.7 mmol/L (21.6-31.8); Chloride 106 mmol/L (96-109); Globulin 2.4 d/dL (1.6-3.3); Glucose 65 mg/dL (70-110); Potassium 4.7 mmol/L (3.5-5.5); Sodium 143 mmol/L (135-145); Total Bilirubin 0.2 mg/dL (0.3-1.2); Total Protein 6.4 d/dL (6.2-8.2)
== END | disposition home or self-care (01) ==
LOC: LABWHC1 09:01
PROVIDERS: ATTEND Internal Medicine
DX: E11.65 Type 2 diabetes mellitus with hyperglycemia (principal)
CPT/HCPCS: 36415; 80053; 83036

== ENCOUNTER 2023-06-19 09:51 | Emergency (ER) | payer MEDICARE, OTHER ==
[2023-06-19 09:58] VITALS: TEMP 98.1
[2023-06-19] MEDS ORDERED: HYDROcodone/APAP 10-325MG 1 EACH TAB PO ONE (10:20)
[2023-06-19] MEDS ORDERED: ONDANSETRON ODT 4 MG TAB PO STA (10:25)
--- NOTE | 2023-06-19 10:27 | ED ---
Fall HPI - General Chief Complaint: Fall Stated Complaint: fall Time Seen by Provider: 06/19/23 10:07 Source: patient, family Mode of arrival: wheelchair - History of Present Illness Initial Comments: Patient's is 73-year-old female with a history of diabetes, peripheral arterial disease, coronary disease, hypertension and presents to emergency room for left knee pain after a fall this morning prior to arrival. The patient had been sitting in her chair in the living room and when she went to get up her 4 toes on the right foot or numb and tingly. She then fell forward onto her left knee. She denies hitting her head or losing consciousness. Denies any other preceding symptoms. Denies any chest pain palpitations, shortness breath, back pain, semi-seizure, loss of bowel or bladder control. She denies any ankle or hip.. Denies any other neurological symptoms. MD Complaint: fall - Related Data Home Medications Medication Instructions Recorded Confirmed Escitalopram [Lexapro] 20 mg PO HS 03/26/18 03/07/23 Pioglitazone [Actos] 15 mg PO QAM 01/19/19 03/07/23 Enalapril [Vasotec] 20 mg PO BID 12/19/22 03/07/23 Furosemide [Lasix] 20 mg PO QAM 12/19/22 03/07/23 Insulin Degludec [Tresiba] 20 units SQ HS 12/19/22 03/07/23 Oxybutynin Chloride [Ditropan XL] 5 mg PO QAM 12/19/22 03/07/23 Semaglutide [Ozempic] 2 mg SQ 12/19/22 03/07/23 Spironolactone 5 mg PO QAM 12/19/22 03/07/23 hydrALAZINE HCL [Apresoline] 50 mg PO TID 12/19/22 03/07/23 Omeprazole 40 mg PO QAM 02/22/23 03/07/23 Rosuvastatin [Crestor] 40 mg PO HS 02/22/23 03/07/23 Previous Rx's Medication Instructions Recorded Apixaban [Eliquis] 5 mg PO BID #60 tab 07/28/19 HYDROcodone/APAP 5-325MG [[place] 5] 1 - 2 each PO Q6HR PRN #20 tab 02/26/23 HYDROcodone/APAP 5-325MG [[place] 5] 1 each PO Q6HR PRN #12 tab 06/19/23 Allergies Allergy/AdvReac Type Severity Reaction Status Date / Time codeine Allergy Chest Pain Verified 06/19/23 09:58 dogs,horses,mold Allergy RUNNY NOSE Uncoded 06/19/23 09:58 Review of Systems ROS Statement: Those systems with pertinent positive or pertinent negative responses have been documented in the HPI. ROS Other: All systems not noted in ROS Statement are negative. 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 Pt uncertain if she has ever received blood. Pt has clausterphobia. Past Psychological History: Anxiety, Panic Disorder Smoking Status: Current every day smoker Past Alcohol Use History: Occasional Past Drug Use History: None Reported - Past Family History Sister(s) Family Medical History: Cancer Additional Family Medical History / Comment(s): Cervical cancer. She is . General Exam Limitations: no limitations General appearance: alert, in no apparent distress Head exam: Present: atraumatic, normocephalic, other (Neurological intact. No hemotympanum. Pupils are equal and reactive bilaterally. Negative for any Lew sign or raccoon eyes) Eye exam: Present: normal appearance, PERRL, EOMI Pupils: Present: normal accommodation Neck exam: Present: normal inspection Respiratory exam: Present: normal lung sounds bilaterally Cardiovascular Exam: Present: regular rate, other (palpable distal pulses.) Extremities exam: Present: tenderness (Left knee pain with palpation. Limited range of motion due to pain. No significant swelling, ecchymosis or erythema. No deformities. Compartments are soft. Mild pain over proximal tibia without any significant discoloration), other Back exam: Present: normal inspection, other (EHL intact bilaterally. neg straight leg test. neurologically intact) Course Vital Signs 06/19/23 09:54 Temperature 98.1 F Pulse Rate 64 Respiratory 18 Rate Blood Pressure 151/72 O2 Sat by Pulse 100 Oximetry - Reevaluation(s) Reevaluation #1: 06/19/23 11:56 Patient was given [place] and Zofran emergency room. She tolerated the [place] well and it did improve her pain. I discussed imaging results with the patient. The x-rays are negative for any deformities fractures or other acute changes. I discussed treatment including rest and icing the patient. I discussed follow-up with orthopedic as needed. Patient does have a walker and her are she may use for ambulation as needed. She has been up ambulating in the emergency room with a steady gait and without any significant discomfort. Again patient is neurologically intact. Discussed signs return to the emergency room. Medical Decision Making - Medical Decision Making Was pt. sent in by a medical professional or institution (, PA, WATERSHED PROGRAM MANAGER, urgent care, hospital, or group home...) When possible be specific @ -No Did you speak to anyone other than the patient for history (EMS, parent, family, police, friend...)? What history was obtained from this source @ - Did you review nursing and triage notes (agree or disagree)? Why? @ -[I reviewed and agree with nursing and triage notes] Were old charts reviewed (outside hosp., previous admission, EMS record, old EKG, old radiological studies, urgent care reports/EKG's, group home records)? Report findings @ -Yes old charts were reviewed Differential Diagnosis (chest pain, altered mental status, abdominal pain women, abdominal pain men, vaginal bleeding, weakness, fever, dyspnea, syncope, headache, dizziness, GI bleed, back pain, seizure, CVA, palpatations, mental health, musculoskeletal)? @ -Trip and fall, knee contusion, patellar fracture, tibial plateau fracture, knee sprain EKG interpreted by me (3pts min.). @ -[As above] X-rays interpreted by me (1pt min.). @ -X-rays of the tibia and fibula as well as the knee showed degenerative changes and some mild arthritis with no obvious fracture or deformity. There is a stent over the femoral artery seen on imaging. Radiology report pending for confirmation of acute changes by radiologist CT interpreted by me (1pt min.). @ -[None done] U/S interpreted by me (1pt. min.). @ -[None done] What testing was considered but not performed or refused? (CT, X-rays, U/S, labs)? Why? @ -[None] What meds were considered but not given or refused? Why? @ -[None] Did you discuss the management of the patient with other professionals (professionals i.e. DrAdeline, PA, WATERSHED PROGRAM MANAGER, lab, RT, psych nurse, child protective services social worker, continuous miner operator, teacher, correctional program officer, watch caser)? Give summary @ -Discussed patient's injury, her physical exam findings, discharge with attending ED physician Dr. Jackson Was smoking cessation discussed for >3mins.? @ -[No] Was critical care preformed (if so, how long)? @ -[No] Were there social determinants of health that impacted care today? How? (Homelessness, low income, unemployed, alcoholism, drug addiction, transportation, low edu. Level, literacy, decrease access to med. care, [place] [facility], rehab)? @ -Mobility was impacted. She is able to ambulate in the emergency room and does have a walker that she may use as needed for ambulation as well. Was there de-escalation of care discussed even if they declined (Discuss DNR or withdrawal of care, Hospice)? DNR status @ -[No] What co-morbidities impacted this encounter? (DM, HTN, Smoking, COPD, CAD, Cancer, CVA, ARF, Chemo, Hep., AIDS, mental health diagnosis, sleep apnea, morbid obesity)? @ -[None] Was patient admitted / discharged? Hospital course, mention meds given and route, prescriptions, significant lab abnormalities, going to OR and other pertinent info. @ -Patient will be discharged home. She is stable and may follow up with ecommerce marketing specialist and primary care physician as an outpatient and does not require admission at this time. She does understand signs to return to the emergency room. Undiagnosed new problem with uncertain prognosis? @ -[No] Drug Therapy requiring intensive monitoring for toxicity (Heparin, Nitro, Insulin, Cardizem)? @ -[No] Were any procedures done? @ -[No] Diagnosis/symptom? @ -Fall, left knee contusion Acute, or Chronic, or Acute on Chronic? @ -Acute Uncomplicated (without systemic symptoms) or Complicated (systemic symptoms)? @ -Uncomplicated Side effects of treatment? @ -[No] Exacerbation, Progression, or Severe Exacerbation? @ -[No] Poses a threat to life or bodily function? How? (Chest pain, [place], [place], pneumonia, PE, COPD, DKA, ARF, appy, cholecystitis, CVA, Diverticulitis, Homicidal, Suicidal, threat to staff... and all critical care pts) @ -[No] Disposition Clinical Impression: Fall, Contusion, knee Disposition: HOME SELF-CARE Instructions (If sedation given, give patient instructions): Fall Prevention for Older Adults (ED), Swollen Knee Joint (ED), Knee Pain (ED), Fall Prevention (ED) Prescriptions: HYDROcodone/APAP 5-325MG [[place] 5] 1 each PO Q6HR PRN #12 tab PRN Reason: Pain Is patient prescribed a controlled substance at d/c from ED?: Yes When asked, does pt state using other controlled substances?: No If prescribed controlled substance>3 days was MAPS reviewed?: Prescribed <3 Days If opioid is for acute pain is fill amount 7 days or less?: No If Rx opioid, was Start Talking consent form obtained?: No Referrals: Jaden Barajas DO [Primary Care Provider] - 1-2 days Sebastian Gutierrez MD [STAFF PHYSICIAN] - 1-2 days Time of Disposition: 12:15
--- NOTE | 2023-06-19 11:02 | XR ---
EXAMINATION TYPE: XR tibia fibula LT DATE OF EXAM: 06/19/2023 COMPARISON: NONE HISTORY: Pain TECHNIQUE: Two views are submitted. FINDINGS: The osseous structures are intact. Diffuse osteopenia with arthropathy knee joint. No erosive changes . Metallic stent overlying the femur. IMPRESSION: 1. No acute osseous abnormality.
--- NOTE | 2023-06-19 11:05 | XR ---
EXAMINATION TYPE: XR knee 4V LT DATE OF EXAM: 06/19/2023 COMPARISON: NONE HISTORY: Pain TECHNIQUE: Four views are submitted. FINDINGS: Uterus osteopenia with mild hypertrophic arthropathy of the tricompartment joint spaces. Metallic ankit nt vascular calcifications noted. Small amount of suprapatellar bursa. Diffuse osteopenia.. Osseous structures are intact. No acute fracture seen. IMPRESSION: 1. No acute fracture or dislocation. 2. Osteoarthritis with small suprapatellar bursal fluid collection.
[2023-06-19 12:32] VITALS: BP 131/66; PULSE 57; RESP 16
== END 2023-06-19 12:25 | disposition home or self-care (01) ==
LOC: EC 09:51
DX: S80.02XA Contusion of left knee, initial encounter (principal); E11.51 Type 2 diabetes mellitus with diabetic peripheral angiopathy without gangrene; E78.5 Hyperlipidemia, unspecified; I10 Essential (primary) hypertension; J44.9 Chronic obstructive pulmonary disease, unspecified; F41.9 Anxiety disorder, unspecified; F17.200 Nicotine dependence, unspecified, uncomplicated; K21.9 Gastro-esophageal reflux disease without esophagitis; Z79.4 Long term (current) use of insulin; Z79.84 Long term (current) use of oral hypoglycemic drugs; Z79.899 Other long term (current) drug therapy; Z88.5 Allergy status to narcotic agent; Z91.09 Other allergy status, other than to drugs and biological substances; W07.XXXA Fall from chair, initial encounter
CPT/HCPCS: 99284

== ENCOUNTER → 2023-07-31 | Outpatient (CLI) | payer MEDICARE, OTHER | END | disposition home or self-care (01) | LOC: LABWHC1 11:38 | PROVIDERS: ATTEND Internal Medicine | DX: E11.65 Type 2 diabetes mellitus with hyperglycemia (principal) | CPT/HCPCS: 36415; 83036 ==

== ENCOUNTER → 2023-10-04 | Outpatient (CLI) | payer MEDICARE, OTHER ==
--- NOTE | 2023-10-04 12:02 | XR ---
EXAMINATION TYPE: XR chest 2V DATE OF EXAM: 10/04/2023 COMPARISON: 07/24/2019. HISTORY: Cough and congestion. TECHNIQUE: Frontal and lateral views of the chest are obtained. IMPRESSION: There is a right masslike opacity in the suprahilar region which could represent underlying mass vers us a focal area of pneumonia. A CT with contrast is recommended for further evaluation. The lungs otherwise appear clear. The cardiac silhouette is mildly enlarged and the pulmonary vessels are within normal limits. There a re midline sternotomy wires.
== END | disposition home or self-care (01) ==
LOC: RADXRYALE 11:09
PROVIDERS: ATTEND Physician Assistant Medical
DX: R91.8 Other nonspecific abnormal finding of lung field (principal); R05.9 Cough, unspecified; R09.89 Other specified symptoms and signs involving the circulatory and respiratory systems
CPT/HCPCS: 71046

== ENCOUNTER → 2023-10-04 | Outpatient (CLI) | payer MEDICARE, OTHER ==
--- NOTE | 2023-10-04 08:51 | P.PN ---
Subjective Progress Note Date: 10/04/23 Subjectiv Principal diagnosis: left breast stage IA left breast [id number]-G1, invasive ductal cancer History of Present Illness H&P Date: 10-04-23 Chief Complaint: left breast invasive ductal cancer, 2022 Marilyn is a 73 year old white female seen in consultation for DR. Barajas regarding a biopsy proven left breast invasive ductal cancer. She had a bilateral mammogram on 12-18-22 which led to a left breast diagnostic mammogram ultrasound. Nothing of concern was seen on the right side. A biopsy was done on 12-28-22 which was a G1 invasive ductal cancer. ER+Pr+Her2-. She had felt a lump in her left breast several months ago. The mammogram was a routine screening mammogram. She stated she also noted that her nipple was pulling and on the left side for several months. She had not had a mammogram since 2018. She had never had any surgery on her breast. Had not had any recent trauma or infection in her breast. The patient on 02-26-23 underwent a left breast sentinel node biopsy and central lumpectomy. Postoperatively she has been seen by radiation oncology and completed treatment with them on . The patient is not complaining of any new lumps masses or nodules of concern in either breast. The patient does state she hasn't slept for 2 nights and has a sinusitis at this time. She has been coughing and her sinuses have been draining. note medical oncology reviewed: 08-13-23: patient started on anastrazole and after a DEXA scan Fosamax and vitamin D; she recently stopped her Fosamax but will discuss this with medical oncology oncotype: 17 Caffeine: 3 cups/day nicotine: 1/2 PPD since chocolate: none BCP: 4 years in the 1970s Family History: maternal aunt: lung cancer paternal aunt: lymphoma sister: cervical father: melanoma maternal cousin: leukemia maternal cousin: lymphoma Hormonal History: menarche: 18 M1, breast fed: no, age at firts : 21 menopause: 53 Surgical History: myxoma back surgery carotid artery surgery gallbladder stints left leg Medical History: HTN anxiety diabetes Social History: Nicotine: as above alcohol: occasional, used to drink on weekends drugs: none - Constitutional Constitutional: Denies chills, Denies fever - EENT Eyes: denies blurred vision, denies pain Ears: bilateral: decreased hearing, tinnitus Ears, nose, mouth and throat: Denies headache, Denies sore throat - Breasts Breasts: bilateral: as per HPI - Cardiovascular Cardiovascular: Reports as per HPI - Respiratory Respiratory: Reports cough - Gastrointestinal Gastrointestinal: Denies abdominal pain, Denies diarrhea, Denies nausea, Denies vomiting - Genitourinary (Female) Comment: UTI Genitourinary: Denies dysuria, Denies hematuria - Menstruation Menstruation: Reports postmenopausal - Musculoskeletal Musculoskeletal: Reports myalgias - Integumentary Integumentary: Denies pruritus, Denies rash - Neurological Neurological: Denies numbness, Denies weakness - Psychiatric Psychiatric: Reports anxiety, Reports depression - Endocrine Endocrine: Reports weight change, Denies fatigue - Hematologic/Lymphatic Comment: on Eliquis since heart surgery for myxoma 2007 - Allergic/Immunologic Allergic/Immunologic: Reports seasonal allergies Past Medical History Past Medical History: COPD, Diabetes Mellitus, GERD/Reflux, Hyperlipidemia, Hypertension, Osteoarthritis (OA), Vascular Disorder Additional Past Medical History / Comment(s): Carotid artery disease bilateral, diabetes mellitus, hypertension and hyperlipidemia, osteoarthritis, 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 History of Any Multi-Drug Resistant Organisms: None Reported Past Surgical History: Appendectomy, Back Surgery, Cholecystectomy, Heart Catheterization, Orthopedic Surgery Additional Past Surgical History / Comment(s): Resection of an atrial myxoma/open heart for removal of tumor on the heart 2007, arthroscopic bilateral knees, left carotid endarterectomy 2014, cyst removed from left ovary, devyn ca taracts Past Anesthesia/Blood Transfusion Reactions: No Reported Reaction Past Psychological History: Anxiety, Panic Disorder Additional Psychological History / Comment(s): claustrophobic Smoking Status: Current every day smoker Past Alcohol Use History: Rare Additional Past Alcohol Use History / Comment(s): smokes 1/2 PPD, smoked since age 19 Past Drug Use History: None Reported - Past Family History Mother Family Medical History: Diabetes Mellitus, Hyperlipidemia, Hypertension Sister(s) Family Medical History: Cancer Medications and Allergies Home Medications Medication Instructions Recorded Confirmed Type Esomeprazole Magnesium [NexIUM] 40 mg PO DAILY 03/23/14 01/04/23 History Ergocalciferol [Vitamin D2 50,000 unit PO Q14D 03/26/18 01/04/23 History (DRISDOL)] Escitalopram [Lexapro] 10 mg PO HS 03/26/18 01/04/23 History Ipratropium/Albuterol Sulfate 2 puff INHALATION RT-QID PRN 03/26/18 01/04/23 History [Combivent Respimat Inhaler] Pioglitazone [Actos] 15 mg PO DAILY 01/19/19 01/04/23 History Apixaban [Eliquis] 5 mg PO BID #60 tab 07/28/19 01/04/23 Rx Atorvastatin [Lipitor] 40 mg PO HS #30 tab 07/28/19 01/04/23 Rx Enalapril [Vasotec] 20 mg PO BID 12/19/22 01/04/23 History Furosemide [Lasix] 20 mg PO DAILY 12/19/22 01/04/23 History Insulin Degludec [Tresiba] 15 units SQ HS 12/19/22 01/04/23 History Oxybutynin Chloride [Ditropan XL] 5 mg PO DAILY 12/19/22 01/04/23 History Semaglutide [Ozempic] 2 mg SQ DAILY 12/19/22 01/04/23 History Spironolactone 25 mg PO DAILY 12/19/22 01/04/23 History hydrALAZINE HCL [Apresoline] 50 mg PO BID 12/19/22 01/04/23 History Allergies Allergy/AdvReac Type Severity Reaction Status Date / Time codeine Allergy Chest Pain Verified 01/04/23 12:04 dogs,horses,mold Allergy RUNNY NOSE Uncoded 01/04/23 12:04 Objective - Constitutional General appearance: Present: cooperative - EENT EENT Comment(s): Sinus drainage Eyes: Present: EOMI - Neck Neck: Present: normal ROM - Respiratory Details: Wheezing left lung base Respiratory: bilateral: CTA - Cardiovascular Heart sounds: normal: S1, S2 - Integumentary Integumentary: Present: normal turgor - Musculoskeletal Musculoskeletal: Present: gait normal - Psychiatric Psychiatric: Present: A&O x's 3, appropriate affect, intact judgment & insight - Additional findings Additional findings: Beast Exam: BRA: sports medium inspection: bilateral grade 2 ptosis, left breast postsurgical and radiation changes Palpation: Right breast: Multi-positional exam fibrocystic changes no dominant masses or nodules of concern Right axilla: No adenopathy of concern Left breast: well healed scar from central lumpectomy, no dominant masses or nodules of concern, postsurgical and radiation changes Left axilla: No adenopathy of concern Assessment and Plan Assessment: Impression: myxoma back surgery carotid artery surgery gallbladder stints left leg Hypertension Anxiety Diabetes Stage I left breast invasive ductal carcinoma; status post central lumpectomy and radiation therapy, no evidence of local recurrence at this time Complaining of coughing/sinus drainage/vent able to sleep Plan: Bilateral mammogram December 2023 Follow up here in 4 months Another appointment with medical oncology to follow regarding hormone therapy and Fosamax We have called her primary care office today and she is going to have an appointment with them regarding her sinus drainage and coughing CC: DR. Barajas
[2023-10-04 09:14] VITALS: BP 182/76; PULSE 90; RESP 17; TEMP 98.3
== END ==
LOC: WWCWWP 08:35
PROVIDERS: ATTEND Surgery
DX: Z12.31 Encounter for screening mammogram for malignant neoplasm of breast (principal); C50.912 Malignant neoplasm of unspecified site of left female breast; D21.9 Benign neoplasm of connective and other soft tissue, unspecified; I10 Essential (primary) hypertension; F41.9 Anxiety disorder, unspecified; E78.5 Hyperlipidemia, unspecified; J44.9 Chronic obstructive pulmonary disease, unspecified; F17.200 Nicotine dependence, unspecified, uncomplicated; K21.9 Gastro-esophageal reflux disease without esophagitis; M19.90 Unspecified osteoarthritis, unspecified site; Z17.0 Estrogen receptor positive status [ER+]; Z79.4 Long term (current) use of insulin; Z79.84 Long term (current) use of oral hypoglycemic drugs; Z90.49 Acquired absence of other specified parts of digestive tract; Z86.018 Personal history of other benign neoplasm; Z88.5 Allergy status to narcotic agent; Z91.014 Allergy to mammalian meats; Z90.721 Acquired absence of ovaries, unilateral

== ENCOUNTER → 2023-10-08 | Outpatient (CLI) | payer MEDICARE, OTHER ==
[2023-10-08 17:23] LABS: African American GFR (CKD) 55 (>60 ml/min/1.73 sqM); Blood Urea Nitrogen 22 mg/dL (7-17); Non-African American GFR(CKD) 48 (>60 ml/min/1.73 sqM)
--- NOTE | 2023-10-10 09:30 | CT ---
EXAMINATION TYPE: CT chest w con CT DLP: 379.3 mGycm, Automated exposure control for dose reduction was used. DATE OF EXAM: 10/08/2023 5:55 PM COMPARISON: 07/11/2019 CLINICAL INDICATION:Female, 73 years old with history of R05.9 COUGH C50.412; PHH, History of left br east ca. Sinusitis x months with recent cough. States that there was an abnormal shadow on chest xray taken at pcp 10/04/23. TECHNIQUE: Multiple axial images were obtained through the chest. Sagittal and coronal reformats were created for review. Contrast used:80 cc mL of Isovue 300 with IV Contrast (None if empty) Oral contrast used: (None if empty) FINDINGS: LUNGS/ PLEURA: There is right upper lung airspace consolidation with airspace opacities extending ortega y from the right pulmonary hilum. The mass along the right main bronchus measures up to 48 x 44 mm. AIRWAY: Patent and unremarkable. HEART: Mild enlargement of the heart with severe coronary artery atherosclerosis. Lipomatous hypertro phy of interatrial septum. MEDIASTINUM: Mediastinal lymphadenopathy with large right paratracheal lymph node measuring up to 18 mm in short axis VASCULATURE: No aortic aneurysm. MUSCULOSKELETAL: Sternotomy wires are present. SOFT TISSUES/LYMPH NODES: Irregularity in the left breast is likely relating to foot was changed from recent is seen measuring 40 x 19 mm. LOWER NECK: No significant findings. UPPER ABDOMEN: No significant findings. IMPRESSION: 1. Right perihilar soft tissue mass likely airspace opacities/atelectasis extending from its periphe ry. Findings concerning for malignancy. There is enlarged mediastinal lymph nodes also present concer rex for metastatic disease. Further workup recommended including PET/CT and bronchoscopy guided tiss ue sampling. 2. Postprocedure treatment changes the left breast with masslike area. Correlate mammography. 3. Preliminary with severe coronary artery atherosclerosis.
== END | disposition home or self-care (01) ==
LOC: RADCTMAIN 16:17
PROVIDERS: ATTEND Family Medicine
DX: R05.9 Cough, unspecified (principal); R59.0 Localized enlarged lymph nodes; I25.10 Atherosclerotic heart disease of native coronary artery without angina pectoris; Z98.890 Other specified postprocedural states
CPT/HCPCS: 82565; 84520; 71260; 36415; Q9967

== ENCOUNTER 2023-11-22 12:09 | Day surgery (SDC) | payer MEDICARE, OTHER ==
[~2023-11-22 12:09] MED LIST changes: -HEPARIN SODIUM,PORCINE/PF 5,000 UNIT/0.5 ML SYRINGE SQ PRN; +LACTATED RINGERS 1,000 ML IV SCH; -Pre Op ABX Message 1 EACH MISC MISCELLANE ONE
[2023-11-22] MEDS: LACTATED RINGERS 1,000 ML IV SCH (13:20)
[2023-11-22 13:22] LABS: Glucose,Whole Blood 129 mg/dL (70-110)
[2023-11-22] MEDS ORDERED: ONDANSETRON 4 MG/2 ML VIAL ONE ×2 (13:22→15:34)
[2023-11-22] MEDS: DEXAMETHASONE SOD PHOSPHATE 4 MG/ML 1 ML VIAL IVP ONE (13:24)
[2023-11-22] MEDS: ONDANSETRON 4 MG/2 ML VIAL IVP ONE ×2 (13:24→15:37)
[2023-11-22] MEDS ORDERED: LIDOCAINE 1% INJ 10MG/ML (20 ML MDV) ONE (13:35)
[2023-11-22] MEDS ORDERED: fentaNYL (PF) 50 MCG/ML 2 ML AMP ONE (13:35)
[2023-11-22] MEDS ORDERED: PROPOFOL 10 MG/ML 20 ML VIAL IV ONE (13:35)
--- NOTE | 2023-11-22 14:34 | P.PCN ---
Date of Procedure: 11/22/23 Preoperative Diagnosis: Right upper lobe mass Postoperative Diagnosis: Right upper lobe mass Mediastinal lymphadenopathy Complete obstruction of the right upper lobe bronchus with extrinsic compression and endobronchial tumor Procedure(s) Performed: Flexible bronchoscopy with airway inspection Flexible bronchoscopy guided endobronchial biopsy of the right upper lobe mass, endobronchial brushing of the right upper lobe mass, bronchial lavage of the right upper lobe mass Endobronchial ultrasound evaluation of the sinus stations Endobronchial ultrasound-guided transbronchial needle aspiration of the station 7, station 4R, station 10 R lymph nodes. Anesthesia: MOEA Surgeon: Ariadne Kennedy Estimated Blood Loss (ml): 0 Pathology: other Condition: stable Disposition: same day Description of Procedure: This bronchoscopy was done in the endoscopy suite. The patient was intubated and placed on mechanical ventilator. The patient was intubated by the anesthesia group with a #8 orotracheal tube. After securing the airway, the flexible bronchoscope was inserted through the orotracheal tube and was advanced to the lower trachea. Distal trachea was within normal limits. Then the bronchoscope was moved to the right and the right mainstem bronchus was normal. Right upper lobe bronchus was being gradually tapered off and there was extrinsic compression and some endobronchial irregularities within the airway and ultimately the airway became completely occluded and the various segments of the right upper lobe were not adequately seen. As such, the right upper lobe bronchus is completely occluded with extrinsic compression and endobronchial tumor. Bronchus medius, right middle lobe bronchus and the right lower lobe bronchus and the various segments of the right middle lobe and the right lower lobe were then inspected and they were all within normal limits. Bronchoscope was then moved to the left and examination of the left mainstem bronchus, left upper lobe bronchus and the left lower lobe bronchus with very slight segments of the left were within normal limits. Following that, the flex bronchoscope was moved to the right upper lobe. Under direct visualization, endobronchial biopsy of the right upper lobe was done. The exact location of the biopsy cannot be confirmed as the various segments of the right upper lobe bronchus were totally occluded and they were not identified. Multiple biopsies were obtained a total of 8. Following that, endobronchial brushings of the right upper lobe bronchus was done. Subsequently, bronchial lavage of the right upper lobe was done with a total of 60 cc of fluid was infused around 20 cc of saline was aspirated. Following that, the bronchoscope was removed and the endobronchial ultrasound was inserted. Careful evaluation of the mediastinal stations revealed that the patient had a large right paratracheal station 4R lymph node measuring 25 x 29 mm in size. There was another station 10 R lymph node measuring 20 mm and subcarinal lymph node station 7 measuring 16 mm in size. Using a 22-gauge needle, transbronchial needle aspiration of station 7 was done, a total of 3 passes, station 10 R, a total of 4 passes and station 4R a total of 5 passes. No complications. No endobronchial bleeding. The endobronchial ultrasound was removed. Therapeutic airway suctioning was done using a flexible bronchoscope and the procedure was terminated. The patient was extubated transferred to recovery in stable condition.
[2023-11-22 14:37] VITALS: TEMP 99
[2023-11-22] MEDS: ALBUTEROL NEBULIZED 2.5 MG/3 ML INHALATION ONE (14:37)
[2023-11-22 15:07] VITALS: RESP 16
[2023-11-22 15:17] LABS: Glucose,Whole Blood 176 mg/dL (70-110)
[2023-11-22 16:05] VITALS: BP 111/64; PULSE 80
== END 2023-11-22 15:55 | disposition home or self-care (01) ==
LOC: ORWHC2ENDO 12:09
PROVIDERS: ATTEND Internal Medicine Critical Care Medicine
DX: C34.11 Malignant neoplasm of upper lobe, right bronchus or lung (principal); I48.91 Unspecified atrial fibrillation; I10 Essential (primary) hypertension; F41.9 Anxiety disorder, unspecified; K21.9 Gastro-esophageal reflux disease without esophagitis; E11.9 Type 2 diabetes mellitus without complications; F17.210 Nicotine dependence, cigarettes, uncomplicated; Z79.84 Long term (current) use of oral hypoglycemic drugs; Z79.899 Other long term (current) drug therapy; Z79.02 Long term (current) use of antithrombotics/antiplatelets
CPT/HCPCS: 87798 ×3; 87496; 87498; 87529; 88104; 88108; 88305; 88342; 87502; 87634; 88341; 87070; 87205; 87116; 87102; 87206; 87635; 31625; 31623; 31624; 31652; 31654; J1100; J2405; J2001; J3010; J2704

== ENCOUNTER → 2023-12-20 | Outpatient (CLI) | payer MEDICARE, OTHER ==
--- NOTE | 2023-12-20 14:24 | MM ---
Reason for Exam: Follow-up at short interval from prior study. Last screening mammogram was performed 12 month(s) ago. Patient History: Menarche at age 18. First Full-Term at age 21. Postmenopausal. Breast cancer, left, age 72. Breast cancer, left, age 72. Previous chest radiation therapy at age 72. Previous chemotherapy at age 73. Patient used Hormonal Contraceptives for 5 years. 02/26/2023, Lumpectomy on the Left side. 02/26/2023, Malignant MG pre op needle loc LT on the left side. 12/28/2022, Malignant US biopsy breast VAD LT on the left side. Maternal aunt had breast cancer. Prior Study Comparison: 02/28/2015 Left Diagnostic Mammogram, [facility]. 08/23/2015 Left Diagnostic Mammogram, [facility]. 07/11/2017 Bilateral Screening Mammogram, [facility]. 07/22/2017 Right Diagnostic Mammogram, [facility]. 08/20/2018 Bilateral Screening Mammogram, [facility]. 10/01/2019 Bilateral Screening Mammogram, [facility]. 12/18/2022 Left MG 3D work up w/cad LT, [facility]. 12/18/2022 Left US breast workup limited LT, [facility]. 12/18/2022 Bilateral MG 3D screening mammo w/cad, [facility]. 12/28/2022 Left MG diagnostic mammo LT wo CAD., [facility]. Tissue Density: The breasts are heterogeneously dense, which may obscure small masses. Findings: Analyzed By CAD. Postoperative lumpectomy changes left breast with residual mass. No suspicious calcifications within either breast. No right breast mass seen. Overall Assessment: Benign, BI-RAD 2 Management: Diagnostic Mammogram of both breasts in 1 year. . Results were given to the patient verbally at the time of exam. Patient should continue monthly self-breast exams. A clinical breast exam by your physician is recommended on an annual basis. This exam should not preclude additional follow-up of suspicious palpable abnormalities. Note on Sally scores and lifetime risk: 1. A Sally score greater than 3% is considered moderate risk. If this is the case, consider specialist referral to assess eligibility for a risk reducing agent. 2. If overall lifetime risk for the development of breast cancer is 20% or higher, the patient may qualify for future screening with alternating mammogram and breast MRI. Electronically signed and approved by: Grant Pederson M.D. Radiologis
== END | disposition home or self-care (01) ==
LOC: RADMAMWWP 13:23
PROVIDERS: ATTEND Family Medicine
DX: C50.412 Malignant neoplasm of upper-outer quadrant of left female breast (principal); C50.112 Malignant neoplasm of central portion of left female breast; Z80.3 Family history of malignant neoplasm of breast; Z78.0 Asymptomatic menopausal state
CPT/HCPCS: 77066; G0279; 77062

== ENCOUNTER 2023-12-22 19:04 | Inpatient (IN) | payer MEDICARE, OTHER ==
--- NOTE | 2023-12-22 19:18 | ED ---
General Adult HPI - General Chief complaint: Weakness Stated complaint: Weakness Time Seen by Provider: 12/22/23 19:07 Source: patient, EMS Mode of arrival: EMS Limitations: no limitations - History of Present Illness Initial comments: Dictation was produced using [employer] dictation software. please excuse any grammatical, word or spelling errors. Chief Complaint: 73-year-old female with months of weakness History of Present Illness: Patient 73-year-old female she presents to the emergency department from home via EMS. Patient has history of squamous cell lung cancer. She has been so weak for the last several weeks progressively. Today her daughter saw her decided that she did not come to the ER due to how weak she was presenting today. Patient feels generally weak. Denies any chest pain or shortness of breath. Denies any numbness tingling paresthesias or weakness to the extremities. Patient has a history of squamous cell lung cancer. She gets chemotherapy every 3 weeks. She is due for chemotherapy in approximately 10 days The ROS documented in this emergency department record has been reviewed and confirmed by me. Those systems with pertinent positive or negative responses have been documented in the HPI. All other systems are other negative and/or noncontributory. - Related Data Home Medications Medication Instructions Recorded Confirmed RX: Escitalopram [Lexapro] 20 mg PO HS 03/26/18 12/20/23 RX: Pioglitazone [Actos] 15 mg PO QAM 01/19/19 12/20/23 Enalapril [Vasotec] 20 mg PO BID 12/19/22 12/20/23 Furosemide [Lasix] 20 mg PO QAM 12/19/22 12/20/23 Insulin Degludec [Tresiba] 15 - 20 units SQ 12/19/22 12/20/23 RX: Spironolactone 5 mg PO QAM 12/19/22 12/20/23 hydrALAZINE HCL [Apresoline] 25 mg PO BID 12/19/22 12/20/23 oxyBUTYnin chloride [Ditropan XL] 5 mg PO QAM 12/19/22 12/20/23 RX: Omeprazole 40 mg PO QAM 02/22/23 12/20/23 RX: Rosuvastatin [Crestor] 40 mg PO HS 02/22/23 12/20/23 RX: Anastrozole 1 mg PO DAILY 11/20/23 12/20/23 ALPRAZolam [Xanax] 0.5 mg PO DAILY PRN 12/20/23 12/20/23 Naproxen Sodium [Aleve] 220 mg PO DIRECTED PRN 12/20/23 12/20/23 Ondansetron [Zofran] 4 - 8 mg PO Q4-6H PRN 12/20/23 12/20/23 Previous Rx's Medication Instructions Recorded RX: Apixaban [Eliquis] 5 mg PO BID #60 tab 07/28/19 Allergies Allergy/AdvReac Type Severity Reaction Status Date / Time codeine Allergy Chest Pain Verified 12/22/23 19:27 dogs,horses,mold Allergy RUNNY NOSE Uncoded 12/22/23 19:27 Review of Systems ROS Statement: Those systems with pertinent positive or pertinent negative responses have been documented in the HPI. ROS Other: All systems not noted in ROS Statement are negative. 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 murmur. hx breast cancer- radiation complete 04/2023. current spot on lung NO LEFT ARM use. 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 Pt has claustrophobia. Past Psychological History: Anxiety, Panic Disorder Smoking Status: Current every day smoker Past Alcohol Use History: None Reported Past Drug Use History: None Reported - Past Family History Sister(s) Family Medical History: Cancer Additional Family Medical History / Comment(s): Cervical cancer. She is . General Exam - General Exam Comments Initial Comments: PHYSICAL EXAM: General Impression: Alert and oriented x3, not in acute distress HEENT: Normocephalic atraumatic, extra-ocular movements intact, pupils equal and reactive to light bilaterally, mucous membranes moist. Cardiovascular: Heart regular rate and rhythm Chest: Able to complete full sentences, no retractions, no tachypnea Abdomen: abdomen soft, non-tender, non-distended, no organomegaly Musculoskeletal: Pulses present and equal in all extremities, no peripheral edema Motor: no focal deficits noted Neurological: CN II-XII grossly intact, no focal motor or sensory deficits noted Skin: Intact with no visualized rashes Psych: Normal affect and mood Limitations: no limitations Course Vital Signs 12/22/23 19:13 Temperature 98.5 F Pulse Rate 89 Respiratory 16 Rate Blood Pressure 113/56 O2 Sat by Pulse 98 Oximetry EKG Findings - EKG Comments: EKG Findings:: My EKG interpretation: Ventricular rate 85, sinus rhythm,. 166, cures 133, QTc 454, right bundle branch block. No AL prolongation, no QTC prolongation, no ST or T-wave changes noted. Overall, this EKG is unremarkable Medical Decision Making - Medical Decision Making Was pt. sent in by a medical professional or institution (, PA, DIAPER FOLDER, urgent care, hospital, or fdc...) When possible be specific @ -No Did you speak to anyone other than the patient for history (EMS, parent, family, police, friend...)? What history was obtained from this source @ -Some history obtained from family at the bedside as discussed above Did you review nursing and triage notes (agree or disagree)? Why? @ -I reviewed and agree with nursing and triage notes Were old charts reviewed (outside hosp., previous admission, EMS record, old EKG, old radiological studies, urgent care reports/EKG's, fdc records)? Report findings @ -No old charts were reviewed Differential Diagnosis (chest pain, altered mental status, abdominal pain women, abdominal pain men, vaginal bleeding, musculoskeletal, weakness, fever, dyspnea, syncope, headache, dizziness, GI bleed, back pain, seizure, CVA, palpatations, mental health)? @ -Differential Weakness: Hypoglycemia, shock, sepsis, hyponatremia, anemia, infection, [place], ETOH, adverse medicine reaction, overdose, stroke, this is not meant to be an all-inclusive list. EKG interpreted by me (3pts min.). @ -See above X-rays interpreted by me (1pt min.). @ -None done CT interpreted by me (1pt min.). @ -None done U/S interpreted by me (1pt. min.). @ -None done What testing was considered but not performed or refused? (CT, X-rays, U/S, labs)? Why? @ -None What meds were considered but not given or refused? Why? @ -None Did you discuss the management of the patient with other professionals (professionals i.e. , PA, DIAPER FOLDER, lab, RT, psych nurse, health and social care teacher, gerentological physiotherapist, teacher, fiscal officer, case maker)? Give summary @ -Case discussed with hospitalist for admission Was smoking cessation discussed for >3mins.? @ -No Was critical care preformed (if so, how long)? @ -No Were there social determinants of health that impacted care today? How? (Homelessness, low income, unemployed, alcoholism, drug addiction, transpo rtation, low edu. Level, literacy, decrease access to med. care, half-way, rehab)? @ -No Was there de-escalation of care discussed even if they declined (Discuss DNR or withdrawal of care, Hospice)? DNR status @ -No What co-morbidities impacted this encounter? (DM, HTN, Smoking, COPD, CAD, Cancer, CVA, ARF, Chemo, Hep., AIDS, mental health diagnosis, sleep apnea, morbid obesity)? @ -Chemotherapy Was patient admitted / discharged? Hospital course, mention meds given and route, prescriptions, significant lab abnormalities, going to OR and other pertinent info. @ -73-year-old female presents to the emergency department for generalized weakness. Seems to be acute on chronic. Vital signs are stable. Physical examination is benign. She has no focal weakness or any significant focal findings. Laboratory evaluation obtained. Leukopenia of 0.3, magnesium 1.2. Rest of labs within acceptable limits. Disposition options were discussed. Patient would like to be admitted overnight for parenteral magnesium. Admitted to [facility] physician group Undiagnosed new problem with uncertain prognosis? @ -No Drug Therapy requiring intensive monitoring for toxicity (Heparin, Nitro, Insulin, Cardizem)? @ -No Were any procedures done? @ -No Diagnosis/symptom? Acute, or Chronic, or Acute on Chronic? Uncomplicated (without systemic symptoms) or Complicated (systemic symptoms)? @ -Hypomagnesemia Side effects of treatment? @ -No Exacerbation, Progression, or Severe Exacerbation? @ -No Poses a threat to life or bodily function? How? (Chest pain, [place], [place], pneumonia, PE, COPD, DKA, ARF, appy, cholecystitis, CVA, Diverticulitis, Homicidal, Suicidal, threat to staff... and all critical care pts) @ -Yes - Lab Data Result diagrams: 12/22/23 19:19 12/22/23 19:19 Lab Results 12/22/23 12/22/23 12/22/23 Range/Units 19:19 19:19 19:19 WBC 0.3 L* (3.8-10.6) k/uL RBC 5.09 (3.80-5.40) m/uL Hgb 15.1 (11.4-16.0) gm/dL Hct 45.8 (34.0-46.0) % MCV 89.9 (80.0-100.0) fL MCH 29.6 (25.0-35.0) pg MCHC 33.0 (31.0-37.0) g/dL RDW 15.3 (11.5-15.5) % Plt Count 22 L (150-450) k/uL MPV 9.4 Neutrophils # DIAPER FOLDER Manual Slide Review Performed Ovalocytes Present Sodium 132 L (137-145) mmol/L Potassium 3.6 (3.5-5.1) mmol/L Chloride 102 (98-107) mmol/L Carbon Dioxide 22 (22-30) mmol/L Anion Gap 8 mmol/L BUN 23 H (7-17) mg/dL Creatinine 1.16 H (0.52-1.04) mg/dL Est GFR (CKD-EPI)AfAm 55 (>60 ml/min/1.73 sqM) Est GFR (CKD-EPI)NonAf 48 (>60 ml/min/1.73 sqM) Glucose 266 H (74-99) mg/dL POC Glucose (mg/dL) (70-110) mg/dL POC Glu Bankruptcy Manager ID Plasma Lactic Acid Benjamín 1.4 (0.7-2.0) mmol/L Calcium 8.3 L (8.4-10.2) mg/dL Magnesium 1.2 L (1.6-2.3) mg/dL Total Bilirubin 1.4 H (0.2-1.3) mg/dL AST 27 (14-36) U/L ALT 27 (4-34) U/L Alkaline Phosphatase 259 H (38-126) U/L Total Protein 5.7 L (6.3-8.2) g/dL Albumin 2.9 L (3.5-5.0) g/dL Influenza Type A (PCR) (Not Detectd) Influenza Type B (PCR) (Not Detectd) RSV (PCR) (Not Detectd) SARS-CoV-2 (PCR) (Not Detectd) 12/22/23 12/22/23 Range/Units 19:19 19:25 WBC (3.8-10.6) k/uL RBC (3.80-5.40) m/uL Hgb (11.4-16.0) gm/dL Hct (34.0-46.0) % MCV (80.0-100.0) fL MCH (25.0-35.0) pg MCHC (31.0-37.0) g/dL RDW (11.5-15.5) % Plt Count (150-450) k/uL MPV Neutrophils # Manual Slide Review Ovalocytes Sodium (137-145) mmol/L Potassium (3.5-5.1) mmol/L Chloride (98-107) mmol/L Carbon Dioxide (22-30) mmol/L Anion Gap mmol/L BUN (7-17) mg/dL Creatinine (0.52-1.04) mg/dL Est GFR (CKD-EPI)AfAm (>60 ml/min/1.73 sqM) Est GFR (CKD-EPI)NonAf (>60 ml/min/1.73 sqM) Glucose (74-99) mg/dL POC Glucose (mg/dL) 320 H (70-110) mg/dL POC Glu Bankruptcy Manager ID Ignacio Alvarez Plasma Lactic Acid Benjamín (0.7-2.0) mmol/L Calcium (8.4-10.2) mg/dL Magnesium (1.6-2.3) mg/dL Total Bilirubin (0.2-1.3) mg/dL AST (14-36) U/L ALT (4-34) U/L Alkaline Phosphatase (38-126) U/L Total Protein (6.3-8.2) g/dL Albumin (3.5-5.0) g/dL Influenza Type A (PCR) Not Detected (Not Detectd) Influenza Type B (PCR) Not Detected (Not Detectd) RSV (PCR) Not Detected (Not Detectd) SARS-CoV-2 (PCR) Not Detected (Not Detectd) Disposition Clinical Impression: Hypomagnesemia Disposition: ADMITTED IP TO THIS HOSP Condition: Fair Referrals: Jaden Barajas DO [Primary Care Provider] - 1-2 days Decision Time: 22:28
[2023-12-22 19:26] LABS: Glucose,Whole Blood 320 mg/dL (70-110)
[2023-12-22 19:47] LABS: HCT 45.8 % (34.0-46.0); HGB 15.1 gm/dL (11.4-16.0); MCH 29.6 pg (25.0-35.0); MCV 89.9 fL (80.0-100.0); Mean Platelet Volume 9.4; RBC 5.09 m/uL (3.80-5.40); RDW 15.3 % (11.5-15.5)
[2023-12-22 20:17] LABS: ALT 27 U/L (4-34); AST 27 U/L (14-36); African American GFR (CKD) 55 (>60 ml/min/1.73 sqM); Albumin 2.9 g/dL (3.5-5.0); Alkaline Phosphatase 259 U/L (38-126); Anion Gap 8 mmol/L; Blood Urea Nitrogen 23 mg/dL (7-17); Calcium 8.3 mg/dL (8.4-10.2); Carbon Dioxide 22 mmol/L (22-30); Chloride 102 mmol/L (98-107); Glucose 266 mg/dL (74-99); Magnesium 1.2 mg/dL (1.6-2.3); Non-African American GFR(CKD) 48 (>60 ml/min/1.73 sqM); Potassium 3.6 mmol/L (3.5-5.1); Sodium 132 mmol/L (137-145); Total Bilirubin 1.4 mg/dL (0.2-1.3); Total Protein 5.7 g/dL (6.3-8.2)
[2023-12-22 20:52] LABS: Platelet Count 22 k/uL (150-450)
[2023-12-22 20:53] LABS: Ovalocytes Present
[2023-12-22] MEDS: MAGNESIUM SULFATE-D5W PMX 1 GM in DEXTROSE/WATER 1 100ML.BAG IVPB SCH (21:59)
[2023-12-22] MEDS ORDERED: NALOXONE 0.4 MG/ML 1 ML VIAL IV PRN (22:22)
[2023-12-22] MEDS: SODIUM CHLORIDE 0.9% 1,000 ML IV SCH (22:50)
[2023-12-23 01:12] LABS: Amorphous Sediment,Urine Rare /hpf; Appearance,Urine Cloudy (Clear); Bacteria,Urine Many /hpf; Bilirubin,Urine Negative (Negative); Blood,Urine Negative (Negative); Color,Urine Yellow; Glucose,Urine (UA) 3+ (Negative); Granular Casts,Urine 1 /lpf (0); Ketones,Urine Negative (Negative); Leukocyte Esterase,Urine Negative (Negative); Mucus,Urine Rare /hpf; Nitrite,Urine Negative (Negative); PH, Urine 5.5 (5.0-8.0); Protein,Urine 1+ (Negative); RBC,Urine 1 /hpf (0-5); Specific Gravity,Urine 1.012 (1.001-1.035); Squamous Epithelial Cell,Urine <1 /hpf (0-4); Urobilinogen,Urine <2.0 mg/dL (<2.0); WBC,Urine 5 /hpf (0-5)
--- NOTE | 2023-12-23 03:52 | P.HPIM ---
History of Present Illness H&P Date: 12/23/23 Patient is a 73-year-old female with a PMH of recently diagnosed small cell lung cancer (diagnosed 2 months ago, started chemotherapy 2 weeks ago), A-fib on Eliquis, type II DM, COPD, hypertension, hyperlipidemia who presents to the emergency room for debility. The history is supplemented by the patient's daughter and granddaughter at the bedside. The patient who lives with her was found by her daughter to be getting progressively weaker throughout the day. She was unable to get up out of a chair, which prompted the daughter to activate EMS. Patient denied any active complaints at the time of interview aside from feeling generalized weakness. Denied experiencing chest discomfort, shortness of breath, fever, chills, cough, nausea, vomiting. EKG in the emergency room revealed sinus rhythm with a right bundle branch block with a left anterior fascicular block at 85 bpm as reviewed by me. Laboratory evaluation was remarkable for hypomagnesemia with magnesium 1.2, bicytopenia with WBC count 0.3 and platelet count 22, sodium 132, BUN 23, creatinine 1.16 (at baseline), total bilirubin 1.4, alkaline phosphatase 259, and an unremarkable UA. ED documentation reviewed and case discussed with ED provider. Review of systems: Pertinent positives and negatives as discussed in HPI, a complete review of systems was performed and all other systems are negative. Physical examination: Vital signs reviewed General: non toxic, no distress, appears at stated age, overweight Derm: no unusual rashes/lesions, warm Head: atraumatic, normocephalic, symmetric Eyes: EOMI, no lid lag, anicteric sclera, pupils equal round reactive to light ENT: Nose and ears atraumatic Neck: No cervical lymphadenopathy, trachea midline, supple Mouth: no lip lesion, mucus membranes moist Cardiovascular: S1S2 reg, no murmur, positive dorsalis pedis pulse bilateral, no edema Lungs: CTA bilateral, no rhonchi, no rales, no accessory muscle use Abdominal: soft, nontender to palpation, no guarding Ext: muscle strength 3 out of 5 in all 4 extremities grossly, no gross muscle atrophy, no contractures, Neuro: CN II-XI grossly intact, no gross focal neuro deficits Psych: Alert, oriented, appropriate affect Assessment: Debility, in setting of chemotherapy for small cell lung cancer Hypomagnesemia Bicytopenia, likely due to ongoing chemotherapy use Chronic conditions: COPD, type II DM, hypertension, hyperlipidemia, A-fib EKG in the emergency room revealed sinus rhythm with a right bundle branch block with a left anterior fascicular block at 85 bpm as reviewed by me. Data Review: Laboratory evaluation was remarkable for hypomagnesemia with magnesium 1.2, bicytopenia with WBC count 0.3 and platelet count 22, sodium 132, BUN 23, creatinine 1.16 (at baseline), total bilirubin 1.4, alkaline phosphatase 259, and an unremarkable UA. Plan: PT consult Oncology consult Fall precautions Replace magnesium and monitor Monitor LFTs Insulin sliding scale and blood glucose monitoring Resume remaining home medications DVT prophylaxis: Eliquis The patient is admitted with an anticipated less than 2 midnight stay for evaluation of debility CODE STATUS: Full Code Discussed with: Patient Anticipated discharge place: Home Past Medical History Past Medical History: Atrial Flutter, Cancer, COPD, Diabetes Mellitus, GERD/Reflux, Hyperlipidemia, Hypertension, Osteoarthritis (OA), Vascular Disorder Additional Past Medical History / Comment(s): IDDM type II, osteoporosis, peripheral vascular disease with poor circulation involving lower extremities, urinary incontinence, previous history of epicardial wires in the heart from previous cardiac surgery, probably related to the myxoma resection. murmur. hx breast cancer- radiation complete 04/2023. current spot on lung NO LEFT ARM use. 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 Pt has claustrophobia. Past Psychological History: Anxiety, Panic Disorder Smoking Status: Current every day smoker Past Alcohol Use History: None Reported Past Drug Use History: None Reported - Past Family History Sister(s) Family Medical History: Cancer Additional Family Medical History / Comment(s): Cervical cancer. She is . Medications and Allergies Home Medications Medication Instructions Recorded Confirmed Type Escitalopram [Lexapro] 20 mg PO HS 03/26/18 12/20/23 History Pioglitazone [Actos] 15 mg PO QAM 01/19/19 12/20/23 History Apixaban [Eliquis] 5 mg PO BID #60 tab 07/28/19 12/20/23 Rx Enalapril [Vasotec] 20 mg PO BID 12/19/22 12/20/23 History Furosemide [Lasix] 20 mg PO QAM 12/19/22 12/20/23 History Insulin Degludec [Tresiba] 15 - 20 units SQ HS 12/19/22 12/20/23 History Spironolactone 5 mg PO QAM 12/19/22 12/20/23 History hydrALAZINE HCL [Apresoline] 25 mg PO BID 12/19/22 12/20/23 History oxyBUTYnin chloride [Ditropan XL] 5 mg PO QAM 12/19/22 12/20/23 History Omeprazole 40 mg PO QAM 02/22/23 12/20/23 History Rosuvastatin [Crestor] 40 mg PO HS 02/22/23 12/20/23 History Anastrozole 1 mg PO DAILY 11/20/23 12/20/23 History ALPRAZolam [Xanax] 0.5 mg PO DAILY PRN 12/20/23 12/20/23 History Naproxen Sodium [Aleve] 220 mg PO DIRECTED PRN 12/20/23 12/20/23 History Ondansetron [Zofran] 4 - 8 mg PO Q4-6H PRN 12/20/23 12/20/23 History Allergies Allergy/AdvReac Type Severity Reaction Status Date / Time codeine Allergy Chest Pain Verified 12/22/23 19:27 dogs,horses,mold Allergy RUNNY NOSE Uncoded 12/22/23 19:27 Physical Exam Vitals: Vital Signs Temp Pulse Resp BP Pulse Ox 12/23/23 02:20 79 16 130/63 98 12/23/23 01:06 75 16 123/55 99 12/23/23 00:42 80 16 109/55 99 12/22/23 22:28 81 16 107/51 98 12/22/23 20:15 811 H 14 110/59 96 12/22/23 19:13 98.5 F 89 16 113/56 98 Intake and Output 12/22/23 12/22/23 12/23/23 14:59 22:59 06:59 Other: Weight 77.564 kg Results CBC & Chem 7: 12/22/23 19:19 12/22/23 19:19 Labs: Abnormal Lab Results - Last 24 Hours (Table) 12/22/23 12/22/23 12/22/23 Range/Units 19:19 19:19 19:25 WBC 0.3 L* (3.8-10.6) k/uL Plt Count 22 L (150-450) k/uL Sodium 132 L (137-145) mmol/L BUN 23 H (7-17) mg/dL Creatinine 1.16 H (0.52-1.04) mg/dL Glucose 266 H (74-99) mg/dL POC Glucose (mg/dL) 320 H (70-110) mg/dL Calcium 8.3 L (8.4-10.2) mg/dL Magnesium 1.2 L (1.6-2.3) mg/dL Total Bilirubin 1.4 H (0.2-1.3) mg/dL Alkaline Phosphatase 259 H (38-126) U/L Total Protein 5.7 L (6.3-8.2) g/dL Albumin 2.9 L (3.5-5.0) g/dL Urine Appearance (Clear) Urine Protein (Negative) Urine Glucose (UA) (Negative) Urine WBC Clumps (None) /hpf Amorphous Sediment (None) /hpf Urine Bacteria (None) /hpf Urine Mucus (None) /hpf 12/23/23 Range/Units 00:50 WBC (3.8-10.6) k/uL Plt Count (150-450) k/uL Sodium (137-145) mmol/L BUN (7-17) mg/dL Creatinine (0.52-1.04) mg/dL Glucose (74-99) mg/dL POC Glucose (mg/dL) (70-110) mg/dL Calcium (8.4-10.2) mg/dL Magnesium (1.6-2.3) mg/dL Total Bilirubin (0.2-1.3) mg/dL Alkaline Phosphatase (38-126) U/L Total Protein (6.3-8.2) g/dL Albumin (3.5-5.0) g/dL Urine Appearance Cloudy H (Clear) Urine Protein 1+ H (Negative) Urine Glucose (UA) 3+ H (Negative) Urine WBC Clumps Rare H (None) /hpf Amorphous Sediment Rare H (None) /hpf Urine Bacteria Many H (None) /hpf Urine Mucus Rare H (None) /hpf
[2023-12-23] MEDS: MAGNESIUM SULFATE-D5W PMX 1 GM in DEXTROSE/WATER 1 100ML.BAG IVPB ONE (04:14)
[2023-12-23 07:29] LABS: WBC 0.3 k/uL (3.8-10.6)
[2023-12-23 07:52] LABS: ALT 24 U/L (4-34); AST 22 U/L (14-36); African American GFR (CKD) 54 (>60 ml/min/1.73 sqM); Albumin 2.8 g/dL (3.5-5.0); Alkaline Phosphatase 254 U/L (38-126); Anion Gap 6 mmol/L; Blood Urea Nitrogen 20 mg/dL (7-17); Calcium 8.5 mg/dL (8.4-10.2); Carbon Dioxide 23 mmol/L (22-30); Chloride 105 mmol/L (98-107); Globulin 2.7 g/dL; Glucose 150 mg/dL (74-99); Magnesium 1.8 mg/dL (1.6-2.3); Non-African American GFR(CKD) 47 (>60 ml/min/1.73 sqM); Potassium 3.4 mmol/L (3.5-5.1); Sodium 134 mmol/L (137-145); Total Bilirubin 1.3 mg/dL (0.2-1.3); Total Protein 5.5 g/dL (6.3-8.2)
[2023-12-23 08:19] LABS: Glucose,Whole Blood 153 mg/dL (70-110)
[2023-12-23] MEDS: INSULIN ASPART (NovoLOG) 100 UNIT/ML VIAL SQ SCH (08:22)
[2023-12-23] MEDS ORDERED: ALPRAZolam 0.5 MG TAB PO PRN (10:29)
[2023-12-23 12:01] LABS: Glucose,Whole Blood 208 mg/dL (70-110)
--- NOTE | 2023-12-23 12:28 | XR ---
EXAMINATION TYPE: XR chest 2V DATE OF EXAM: 12/23/2023 10:43 AM CLINICAL INDICATION:Female, 73 years old with history of cough, neutropenia; [facility] COMPARISON: 10/08/2023, 10/04/2023 TECHNIQUE: XR chest 2V Frontal and lateral views of the chest. FINDINGS: Lungs/Pleura: There is no evidence of pleural effusion, focal consolidation, or pneumothorax. Pulmonary vascularity: Unremarkable. Heart/mediastinum: Cardiomediastinal silhouette is unremarkable. Musculoskeletal: No acute osseous pathology. Midline sternotomy wires are noted. IMPRESSION: Similar right upper lung/perihilar airspace opacities. Superimposed infection not entirely excluded.
[2023-12-23 12:52] LABS: African American GFR (CKD) 53 (>60 ml/min/1.73 sqM); Anion Gap 7 mmol/L; Blood Urea Nitrogen 21 mg/dL (7-17); Calcium 8.2 mg/dL (8.4-10.2); Carbon Dioxide 22 mmol/L (22-30); Chloride 104 mmol/L (98-107); Glucose 192 mg/dL (74-99); Non-African American GFR(CKD) 46 (>60 ml/min/1.73 sqM); Potassium 3.4 mmol/L (3.5-5.1); Sodium 133 mmol/L (137-145)
[2023-12-23] MEDS: ACETAMINOPHEN TAB 325 MG TAB PO PRN (13:48)
--- NOTE | 2023-12-23 14:23 | P.DS ---
Providers Date of admission: 12/22/23 22:36 Expected date of discharge: 12/23/23 Attending physician: Chau Max MD Consults: 12/23/23 03:50 Consult Physician Urgent Consulting Provider: Bart Lyon Consult Reason/Comments: small cell lung ca Do you want consulting provider notified?: Yes Primary care physician: [facility] Course: Debility, in setting of chemotherapy for small cell lung cancer Hypomagnesemia Bicytopenia, likely due to ongoing chemotherapy use Chronic conditions: COPD, type II DM, hypertension, hyperlipidemia, A-fib Hospital Course: Patient is a 73-year-old female with a PMH of recently diagnosed small cell lung cancer (diagnosed 2 months ago, started chemotherapy 2 weeks ago), A-fib on Eliquis, type II DM, COPD, hypertension, hyperlipidemia who presented to the emergency room for debility. EKG in the emergency room revealed sinus rhythm with a right bundle branch block with a left anterior fascicular block at 85 bpm as reviewed by me. Laboratory evaluation was remarkable for hypomagnesemia with magnesium 1.2, bicytopenia with WBC count 0.3 and platelet count 22, sodium 132, BUN 23, creatinine 1.16 (at baseline), total bilirubin 1.4, alkaline phosphatase 259, and an unremarkable UA. Pt was given IVF. Pt was offered PT consultation and possible rehab, but requested services be offered at home. Pt was subsequently discharged home with home PT/OT. Gen: In NAD, non-toxic HEENT: normocephalic, atraumatic, hearing acuity is intant, mucous membranes moist CVS: perfusing all extremities well, no pitting edema, Respiratory: symmetric chest expansion, no accessory muscle use, GI: soft, NTTP, ND, : no suprapubic tenderness, no CVA tenderness MSK/Derm: no rashes, cyanosis Neuro: CN II-XII intact, no motor weakness, Psych: cooperative, euthymic mood, judgment and insight is intact Patient Condition at Discharge: Good Plan - Discharge Summary New Discharge Prescriptions: New Acetaminophen Tab [Tylenol] 650 mg PO Q6HR PRN tab PRN Reason: Fever And/ Or Pain Continue Pioglitazone [Actos] 15 mg PO DAILY Apixaban [Eliquis] 5 mg PO BID #60 tab Enalapril [Vasotec] 20 mg PO BID Rosuvastatin Calcium [Crestor] 40 mg PO DAILY oxyBUTYnin chloride [Ditropan] 5 mg PO DAILY Esomeprazole Magnesium [NexIUM] 40 mg PO DAILY Spironolactone 25 mg PO DAILY hydrALAZINE HCL [Apresoline] 25 mg PO BID Insulin Degludec [Tresiba] 15 units SQ HS Anastrozole 1 mg PO DAILY ALPRAZolam [Xanax] 0.5 mg PO BID PRN PRN Reason: Anxiety Potassium Chloride ER [K-Dur 20] 20 meq PO DAILY Escitalopram [Lexapro] 20 mg PO DAILY Discontinued Furosemide [Lasix] 20 mg PO DAILY Ondansetron [Zofran] 4 - 8 mg PO Q4-6H PRN PRN Reason: Nausea Discharge Medication List Pioglitazone [Actos] 15 mg PO DAILY 01/19/19 [History] Apixaban [Eliquis] 5 mg PO BID #60 tab 07/28/19 [Rx] Enalapril [Vasotec] 20 mg PO BID 12/19/22 [History] Insulin Degludec [Tresiba] 15 units SQ HS 12/19/22 [History] Spironolactone 25 mg PO DAILY 12/19/22 [History] hydrALAZINE HCL [Apresoline] 25 mg PO BID 12/19/22 [History] Anastrozole 1 mg PO DAILY 11/20/23 [History] ALPRAZolam [Xanax] 0.5 mg PO BID PRN 12/20/23 [History] Acetaminophen Tab [Tylenol] 650 mg PO Q6HR PRN tab 12/23/23 [Rx] Escitalopram [Lexapro] 20 mg PO DAILY 12/23/23 [History] Esomeprazole Magnesium [NexIUM] 40 mg PO DAILY 12/23/23 [History] Potassium Chloride ER [K-Dur 20] 20 meq PO DAILY 12/23/23 [History] Rosuvastatin Calcium [Crestor] 40 mg PO DAILY 12/23/23 [History] oxyBUTYnin chloride [Ditropan] 5 mg PO DAILY 12/23/23 [History] Follow up Appointment(s)/Referral(s): Jaden Barajas DO [Primary Care Provider] - 1-2 days
--- NOTE | 2023-12-23 15:21 | P.PN ---
Progress Note - Text Progress Note Date: 12/23/23 After discharge orders placed, notified the patient spiked a fever up to 102.3. Patient is also neutropenic. Patient started on antibiotics in the form of cefepime, ID was consulted, blood cultures placed. UA was negative for infection. Chest x-ray showed right upper lobe opacities, similar nature to previous with possibility of overlying infection. Procalcitonin is ordered.
[2023-12-23] MEDS: CEFEPIME 2 GM in SODIUM CHLORIDE 0.9% 100 ML IVPB SCH (16:49)
[2023-12-23 17:39] LABS: Glucose,Whole Blood 226 mg/dL (70-110)
--- NOTE | 2023-12-23 17:54 | P.CONS ---
History of Present Illness - Reason for Consult Consult date: 12/23/23 On treatment for SCLC Requesting physician: Chau Max - Chief Complaint weakness, neutropenic fever - History of Present Illness Ms. Moeller is a 73-year-old femal pt of Dr. Loulou De Jesus with a PMH atrial flutter on Eliquis, IDC of the lt breast, ER/VT+, Her2 IHC 1+, Oncotype Dx recurrence risk of 17, treated with lumpectomy with SLN removal on 02/26/2023, path revealed 1.5 cm grade 1 invasive ductal carcinoma with negative margins. 1 sentinel lymph node was negative for malignancy. Additional axillary tissue from the left breast revealed benign fibroadipose tissue with no lymph node. There was focal perineural invasion noted, with no other findings, final stage [id number]. She completed 15 fraction of adj radiation. 07/2023 she started anastrazole with Ca++/vit D daily with weekly fosamax. CT chest was ordered 10/08/23 due to persistent cough, smoker. Right mid/upper lobe 4.8cm lung lesion with paratracheal LAD was found. PET/CT 10/23/23 showed FDG avid right upper lobe mass with mediastinal lymphadenopathy, liver metastases, and potentially early bone metastases. Bronchoscopy with biopsy of the right upper lobe mass along with lymph nodes at station 4R, 7, and 10 on 11/22/2023 was consistent with small cell carcinoma, extensive stage disease. CT brain was ultimately done 12/15, no evidence of mets. Pt had her 1st cycle of carbo/[employer]/tecentriq 12/11-12/12, no GCSF. She was seen for f/u last week and was actually feeling pretty well, mild heme toxicities at that time. Over the weekend pt started feeling weaker, she had not had a fever or chills, N,V, abd pain, dysuria, hematuria, diarrhea or constipation. She did report a congested cough so, CXR was ordered. She was feeling better after some fluids. Unfortunately, she did spike a fever, she is now being admitted with neutropenic fever. 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 murmur. hx breast cancer- radiation complete 04/2023. current spot on lung NO LEFT ARM use. 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 Pt has claustrophobia. Past Psychological History: Anxiety, Panic Disorder Smoking Status: Current every day smoker Past Alcohol Use History: None Reported Past Drug Use History: None Reported - Past Family History Sister(s) Family Medical History: Cancer Additional Family Medical History / Comment(s): Cervical cancer. She is . Medications and Allergies Home Medications Medication Instructions Recorded Confirmed Type Pioglitazone [Actos] 15 mg PO DAILY 01/19/19 12/23/23 History Apixaban [Eliquis] 5 mg PO BID #60 tab 07/28/19 12/23/23 Rx Enalapril [Vasotec] 20 mg PO BID 12/19/22 12/23/23 History Insulin Degludec [Tresiba] 15 units SQ HS 12/19/22 12/23/23 History Spironolactone 25 mg PO DAILY 12/19/22 12/23/23 History hydrALAZINE HCL [Apresoline] 25 mg PO BID 12/19/22 12/23/23 History Anastrozole 1 mg PO DAILY 11/20/23 12/23/23 History ALPRAZolam [Xanax] 0.5 mg PO BID PRN 12/20/23 12/23/23 History Acetaminophen Tab [Tylenol] 650 mg PO Q6HR PRN tab 12/23/23 Rx Escitalopram [Lexapro] 20 mg PO DAILY 12/23/23 12/23/23 History Esomeprazole Magnesium [NexIUM] 40 mg PO DAILY 12/23/23 12/23/23 History Potassium Chloride ER [K-Dur 20] 20 meq PO DAILY 12/23/23 12/23/23 History Rosuvastatin Calcium [Crestor] 40 mg PO DAILY 12/23/23 12/23/23 History oxyBUTYnin chloride [Ditropan] 5 mg PO DAILY 12/23/23 12/23/23 History Allergies Allergy/AdvReac Type Severity Reaction Status Date / Time dog dander Allergy Runny nose Verified 12/23/23 10:05 codeine AdvReac Chest Pain Verified 12/23/23 10:05 dogs,horses,mold Allergy Runny nose Uncoded 12/23/23 10:05 Physical Exam Vitals: Vital Signs Temp Pulse Pulse Resp BP BP Pulse Ox 12/23/23 08:00 97.2 F L 90 16 141/83 97 12/23/23 02:20 79 16 130/63 98 12/23/23 01:06 75 16 123/55 99 12/23/23 00:42 80 16 109/55 99 12/22/23 22:28 81 16 107/51 98 12/22/23 20:15 81 14 110/59 96 12/22/23 19:13 98.5 F 89 16 113/56 98 Intake and Output 12/22/23 12/23/23 12/23/23 22:59 06:59 14:59 Other: Weight 77.564 kg - Constitutional General appearance: average body habitus, cooperative, no acute distress - EENT Eyes: anicteric sclerae, EOMI ENT: hearing grossly normal, normal oropharynx - Neck Neck: no lymphadenopathy - Respiratory Respiratory: bilateral: rhonchi, other (Very congested cough) - Cardiovascular Rhythm: regular Heart sounds: normal: S1, S2 Abnormal Heart Sounds: no systolic murmur, no diastolic murmur, no rub, no S3 Gallop, no S4 Gallop, no click, no other leg Peripheral Edema: bilateral: None - Gastrointestinal General gastrointestinal: no absent bowel sounds, no decreased bowel sounds, no distended, no hepatomegaly, no hyperactive bowel sounds, normal bowel sounds, no organomegaly, no rigid, no scaphoid, soft, no splenomegaly, no tenderness, no umbilical hernia, no ventral hernia - Integumentary Integumentary: normal - Neurologic Neurologic: CNII-XII intact - Musculoskeletal Musculoskeletal: generalized weakness, strength equal bilaterally - Psychiatric Psychiatric: A&O x's 3, appropriate affect, intact judgment & insight Results CBC & Chem 7: 12/22/23 19:19 12/23/23 12:16 Labs: Abnormal Lab Results - Last 24 Hours (Table) 12/22/23 12/22/23 12/22/23 Range/Units 19:19 19:19 19:25 WBC 0.3 L* (3.8-10.6) k/uL Plt Count 22 L (150-450) k/uL Sodium 132 L (137-145) mmol/L Potassium (3.5-5.1) mmol/L BUN 23 H (7-17) mg/dL Creatinine 1.16 H (0.52-1.04) mg/dL Glucose 266 H (74-99) mg/dL POC Glucose (mg/dL) 320 H (70-110) mg/dL Calcium 8.3 L (8.4-10.2) mg/dL Magnesium 1.2 L (1.6-2.3) mg/dL Total Bilirubin 1.4 H (0.2-1.3) mg/dL Alkaline Phosphatase 259 H (38-126) U/L Total Protein 5.7 L (6.3-8.2) g/dL Albumin 2.9 L (3.5-5.0) g/dL Urine Appearance (Clear) Urine Protein (Negative) Urine Glucose (UA) (Negative) Urine WBC Clumps (None) /hpf Amorphous Sediment (None) /hpf Urine Bacteria (None) /hpf Urine Mucus (None) /hpf 12/23/23 12/23/23 12/23/23 Range/Units 00:50 07:00 08:17 WBC (3.8-10.6) k/uL Plt Count (150-450) k/uL Sodium 134 L (137-145) mmol/L Potassium 3.4 L (3.5-5.1) mmol/L BUN 20 H (7-17) mg/dL Creatinine 1.17 H (0.52-1.04) mg/dL Glucose 150 H (74-99) mg/dL POC Glucose (mg/dL) 153 H (70-110) mg/dL Calcium (8.4-10.2) mg/dL Magnesium (1.6-2.3) mg/dL Total Bilirubin (0.2-1.3) mg/dL Alkaline Phosphatase 254 H (38-126) U/L Total Protein 5.5 L (6.3-8.2) g/dL Albumin 2.8 L (3.5-5.0) g/dL Urine Appearance Cloudy H (Clear) Urine Protein 1+ H (Negative) Urine Glucose (UA) 3+ H (Negative) Urine WBC Clumps Rare H (None) /hpf Amorphous Sediment Rare H (None) /hpf Urine Bacteria Many H (None) /hpf Urine Mucus Rare H (None) /hpf Chest x-ray: report reviewed (RUL opacities) Assessment and Plan (1) Neutropenic fever Current Visit: Yes Status: Acute Priority: High Code(s): D70.9 - NEUTROPENIA, UNSPECIFIED; R50.81 - FEVER PRESENTING WITH CONDITIONS CLASSIFIED ELSEWHERE SNOMED Code(s): 842586370 (2) Weakness Current Visit: Yes Status: Acute Priority: High Code(s): R53.1 - WEAKNESS SNOMED Code(s): 77381402 (3) Thrombocytopenia Current Visit: Yes Status: Acute Priority: High Code(s): D69.6 - THROMBOCYTOPENIA, UNSPECIFIED SNOMED Code(s): 595640215 (4) Small cell lung cancer Current Visit: Yes Status: Acute Priority: High Code(s): C34.90 - MALIGNANT NEOPLASM OF UNSP PART OF UNSP BRONCHUS OR LUNG SNOMED Code(s): 511871599 (5) Hypomagnesemia Current Visit: Yes Status: Acute Priority: High Code(s): E83.42 - HYPOMAGNESEMIA SNOMED Code(s): 404397682 Plan: Neutropenic fever -Case discussed with Attending -Low counts secondary to chemo -Patient has been started on empiric antibiotics -Infectious disease consulted -Chest x-ray showing some opacities right upper lobe, cannot completely exclude superimposed infection -Blood cultures and urinary analysis pending -G-CSF added -CBC daily Weakness -Secondary to neutropenic fever and chemotherapy -PT/OT while inpatient Chemotherapy-induced thrombocytopenia -Platelet count 22,000, no aspirin, NSAIDs, anticoagulation. Use SCDs for DVT prophylaxis Extensive stage small cell lung cancer -Patient is status post first cycle of carboplatin, etoposide and Tecentriq, no G-CSF -Patient actually was doing pretty well last week with only moderate hematological toxicities. She still seems to be doing well in general, no significant physical toxicities but, hematological toxicities have progressed. -May consider G-CSF addition to treatment next cycle or possible chemotherapy dose reduction. Patient will be reassessed by Primary Oncologist before resuming any treatment Hypomagnesemia -Magnesium was supplemented with normal magnesium level on recheck. Continue to monitor while inpatient. Defer to internal medicine Doctor attests: I performed a history and physical examination of this patient, developed impression and plan of care. Discussed with dictator. I agree with dictators note, documented as a scribe.
[2023-12-23] MEDS: FILGRASTIM-SNDZ 480 MCG/0.8 ML SYRINGE SQ SCH (18:01)
[2023-12-23 20:27] LABS: Glucose,Whole Blood 247 mg/dL (70-110)
[2023-12-23] MEDS: hydrALAZINE HCL 25 MG TAB PO SCH (21:13)
[2023-12-23] MEDS: lisinopriL 20 MG TAB PO SCH (21:13)
[2023-12-23] MEDS: INSULIN DETEMIR (LEVEMIR) 100 UNIT/ML SYR SQ SCH (21:13)
[2023-12-23] MEDS: APIXABAN 5 MG TAB PO SCH (21:13)
[2023-12-23] MEDS: ONDANSETRON 4 MG/2 ML VIAL IVP STA (21:44)
--- NOTE | 2023-12-23 22:53 | P.CONS ---
History of Present Illness - Reason for Consult Consult date: 12/23/23 - History of Present Illness Patient is a 73-year-old female with a past medical history significant for diabetes mellitus hypertension hyperlipidemia osteoarthritis atrial fibrillation and history of left breast cancer status postlumpectomy and SLN removal for the patient has been on chemotherapy patient presenting to the ER concerning for fever apparently started the day before presentation to the hospital patient denies having any headache or URI symptoms but denies having any chest pain or shortness of breath she did have a cough mild to moderate in intensity and has become some sputum no hemoptysis no pleuritic chest pain no nausea vomiting no abdominal pain no diarrhea no urinary symptoms no joint swelling patient has been evaluated on presentation to the hospital patient did have a white count of 0.3 platelet count was 22 BUN/creatinine has been mildly elevated liver isms are normal urine has been negative influenza RSV COVID testing was negative patient did have a chest x-ray right upper lung perihilar airspace opacity superimposed infection not excluded patient was ready to be discharged however she spiked a fever again discharge was put on hold patient was started on cefepime and vancomycin infectious disease was consulted for further management of antibiotic therapy Past Medical History Past Medical History: Atrial Flutter, Cancer, COPD, Diabetes Mellitus, GERD/Reflux, Hyperlipidemia, Hypertension, Osteoarthritis (OA), Vascular Disorder Additional Past Medical History / Comment(s): IDDM type II, osteoporosis, pe ripheral vascular disease with poor circulation involving lower extremities, urinary incontinence, previous history of epicardial wires in the heart from previous cardiac surgery, probably related to the myxoma resection. murmur. hx breast cancer- radiation complete 04/2023. current spot on lung NO LEFT ARM use. 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 Pt has claustrophobia. Past Psychological History: Anxiety, Panic Disorder Smoking Status: Current every day smoker Past Alcohol Use History: None Reported Past Drug Use History: None Reported - Past Family History Sister(s) Family Medical History: Cancer Additional Family Medical History / Comment(s): Cervical cancer. She is . Medications and Allergies Home Medications Medication Instructions Recorded Confirmed Type Pioglitazone [Actos] 15 mg PO DAILY 01/19/19 12/23/23 History Apixaban [Eliquis] 5 mg PO BID #60 tab 07/28/19 12/23/23 Rx Enalapril [Vasotec] 20 mg PO BID 12/19/22 12/23/23 History Insulin Degludec [Tresiba] 15 units SQ HS 12/19/22 12/23/23 History Spironolactone 25 mg PO DAILY 12/19/22 12/23/23 History hydrALAZINE HCL [Apresoline] 25 mg PO BID 12/19/22 12/23/23 History Anastrozole 1 mg PO DAILY 11/20/23 12/23/23 History ALPRAZolam [Xanax] 0.5 mg PO BID PRN 12/20/23 12/23/23 History Acetaminophen Tab [Tylenol] 650 mg PO Q6HR PRN tab 12/23/23 Rx Escitalopram [Lexapro] 20 mg PO DAILY 12/23/23 12/23/23 History Esomeprazole Magnesium [NexIUM] 40 mg PO DAILY 12/23/23 12/23/23 History Potassium Chloride ER [K-Dur 20] 20 meq PO DAILY 12/23/23 12/23/23 History Rosuvastatin Calcium [Crestor] 40 mg PO DAILY 12/23/23 12/23/23 History oxyBUTYnin chloride [Ditropan] 5 mg PO DAILY 12/23/23 12/23/23 History Allergies Allergy/AdvReac Type Severity Reaction Status Date / Time dog dander Allergy Runny nose Verified 12/23/23 10:05 codeine AdvReac Chest Pain Verified 12/23/23 10:05 dogs,horses,mold Allergy Runny nose Uncoded 12/23/23 10:05 Physical Exam Vitals: Vital Signs Temp Pulse Pulse Resp BP BP Pulse Ox 12/23/23 15:58 99.8 F H 85 20 96/50 94 L 12/23/23 14:55 102.3 F H 12/23/23 13:23 100.6 F H 74 20 113/57 98 12/23/23 08:00 97.2 F L 90 16 141/83 97 12/23/23 02:20 79 16 130/63 98 12/23/23 01:06 75 16 123/55 99 12/23/23 00:42 80 16 109/55 99 12/22/23 22:28 81 16 107/51 98 12/22/23 20:15 81 14 110/59 96 12/22/23 19:13 98.5 F 89 16 113/56 98 Results CBC & Chem 7: 12/22/23 19:19 12/23/23 12:16 Labs: Abnormal Lab Results - Last 24 Hours (Table) 12/22/23 12/22/23 12/22/23 Range/Units 19:19 19:19 19:25 WBC 0.3 L* (3.8-10.6) k/uL Plt Count 22 L (150-450) k/uL Sodium 132 L (137-145) mmol/L Potassium (3.5-5.1) mmol/L BUN 23 H (7-17) mg/dL Creatinine 1.16 H (0.52-1.04) mg/dL Glucose 266 H (74-99) mg/dL POC Glucose (mg/dL) 320 H (70-110) mg/dL Calcium 8.3 L (8.4-10.2) mg/dL Magnesium 1.2 L (1.6-2.3) mg/dL Total Bilirubin 1.4 H (0.2-1.3) mg/dL Alkaline Phosphatase 259 H (38-126) U/L Total Protein 5.7 L (6.3-8.2) g/dL Albumin 2.9 L (3.5-5.0) g/dL Urine Appearance (Clear) Urine Protein (Negative) Urine Glucose (UA) (Negative) Urine WBC Clumps (None) /hpf Amorphous Sediment (None) /hpf Urine Bacteria (None) /hpf Urine Mucus (None) /hpf 12/23/23 12/23/23 12/23/23 Range/Units 00:50 07:00 08:17 WBC (3.8-10.6) k/uL Plt Count (150-450) k/uL Sodium 134 L (137-145) mmol/L Potassium 3.4 L (3.5-5.1) mmol/L BUN 20 H (7-17) mg/dL Creatinine 1.17 H (0.52-1.04) mg/dL Glucose 150 H (74-99) mg/dL POC Glucose (mg/dL) 153 H (70-110) mg/dL Calcium (8.4-10.2) mg/dL Magnesium (1.6-2.3) mg/dL Total Bilirubin (0.2-1.3) mg/dL Alkaline Phosphatase 254 H (38-126) U/L Total Protein 5.5 L (6.3-8.2) g/dL Albumin 2.8 L (3.5-5.0) g/dL Urine Appearance Cloudy H (Clear) Urine Protein 1+ H (Negative) Urine Glucose (UA) 3+ H (Negative) Urine WBC Clumps Rare H (None) /hpf Amorphous Sediment Rare H (None) /hpf Urine Bacteria Many H (None) /hpf Urine Mucus Rare H (None) /hpf 12/23/23 12/23/23 Range/Units 11:59 12:16 WBC (3.8-10.6) k/uL Plt Count (150-450) k/uL Sodium 133 L (137-145) mmol/L Potassium 3.4 L (3.5-5.1) mmol/L BUN 21 H (7-17) mg/dL Creatinine 1.20 H (0.52-1.04) mg/dL Glucose 192 H (74-99) mg/dL POC Glucose (mg/dL) 208 H (70-110) mg/dL Calcium 8.2 L (8.4-10.2) mg/dL Magnesium (1.6-2.3) mg/dL Total Bilirubin (0.2-1.3) mg/dL Alkaline Phosphatase (38-126) U/L Total Protein (6.3-8.2) g/dL Albumin (3.5-5.0) g/dL Urine Appearance (Clear) Urine Protein (Negative) Urine Glucose (UA) (Negative) Urine WBC Clumps (None) /hpf Amorphous Sediment (None) /hpf Urine Bacteria (None) /hpf Urine Mucus (None) /hpf Assessment and Plan Plan: 1patient with febrile neutropenia in this patient with a fever of 101 degrees for night white count has been 0.3 in this patient with a history of breast cancer on chemotherapy did have a respiratory symptoms with a right perihilar infiltrate suspicious for pneumonia to be the likely etiology 2-we will try to obtain a sputum for Gram stain culture follow-up on the procalcitonin level and the blood culture 3-patient to continue the vancomycin and cefepime while waiting for the culture to finalize Family at the bedside question concern answered We will follow on clinical condition and cultures to further adjust medication if needed Thank you for this consultation we will follow the patient along with you Dictation was produced using [employer] dictation software. please excuse any grammatical, word or spelling errors. Time with Patient: Greater than 30
[2023-12-24] MEDS: CEFEPIME 2 GM in SODIUM CHLORIDE 0.9% 100 ML IVPB SCH (05:11)
[2023-12-24 07:13] LABS: Glucose,Whole Blood 56 mg/dL (70-110)
[2023-12-24 07:44] LABS: Glucose,Whole Blood 92 mg/dL (70-110)
[2023-12-24 08:10] VITALS: RESP 16
[2023-12-24] MEDS: SPIRONOLACTONE 25 MG TAB PO SCH (09:05)
[2023-12-24] MEDS: ATORVASTATIN 80 MG TAB PO SCH (09:08)
[2023-12-24] MEDS: PANTOPRAZOLE 40 MG TABLET PO SCH (09:08)
[2023-12-24] MEDS: ANASTROZOLE 1 MG TAB PO SCH (09:09)
[2023-12-24] MEDS: oxyBUTYnin chloride 5 MG TAB PO SCH (09:09)
[2023-12-24] MEDS: ESCITALOPRAM 20 MG TAB PO SCH (09:09)
--- NOTE | 2023-12-24 10:31 | P.PN ---
Subjective Progress Note Date: 12/24/23 Patient is a 73-year-old female with recently diagnosed small cell lung cancer (diagnosed 2 months ago, started first round of chemotherapy 2 weeks ago), A-fib anitcoagulated with Eliquis, type II DM, COPD, hypertension, and hyperlipidemia who presented to the emergency room for weakness. In the emergency departent she underwent an extensive evaluation. Laboratory analysis was remarkable magne sium 1.2, WBC count 0.3, platelet count 22, sodium 132, BUN 23, creatinine 1.16 (at baseline), total bilirubin 1.4, and alkaline phosphatase 259. Her urinalysis was unremarkable. She was placed in observation for wekaness. Pt was given IVF and had some improvement. Unfortunately, she spiked a fever of 102.3F on 12/23/23. Chest x-ray was preformed that showed no acute process. She was started on vanco and cefepime. Oncology started on patient on filgastrim. Infectious disease was consulted. Blood cultures were obtained. Patient seen and examined at bedside. She is still feeling very tired. She has a small amount of nausea. She denies any new shortness of breath, cough, or chest pain. No other complaints at this time. Vital signs reviewed General: nontoxic, no distress, appears at stated age Cardiovascular: S1S2 reg, no murmur Lungs: decreased bs bilateral, no rhonchi, no rales, no accessory muscle use Abdominal: soft, nontender to palpation, no guarding Ext: no gross muscle atrophy, no edema b/l lower extremities, no contractures Neuro: CN II-XI grossly intact, no focal neuro deficits Psych: Alert, oriented, appropriate affect Assessment/Plan: Neutropenic Fevers Thrombocytopenia Extensive stage Small Cell Carcinoma Debility, in setting of chemotherapy for small cell lung cancer - Await todays CBC - could be PNA given RUL infiltrat on CXR - Cefepime 2 grams IV q 12 hours D # 2 - ID cosnult reviewed: continue with antibiotics - Onc recs: G-CSF - PT/OT recs - Lactated ringers 75 cc/hr. - eliquis on hold due to thrombocytopenia - hold aldactone and hydralazine due to low BP Type II DM, Hypoglycemia - SSI - Decreased levemir to 10 units at night - follow BS Hypomagnesemia - repleted - recheck in AM Chronic conditions COPD without exacerbation, hypertension hyperlipidemia A-fib Imaging: None new Data Review: Labs pending for today are CBC and BMP which will be reviewed when avaialble. DVT prophylaxis: SCDs Anticipated discharge date: Pending Clinical Course Anticipated discharge place: Pending Clinical Course This dictation was prepared using [employer] plus voice recognition software. Though every attempt is made to correct errors during dictation some may still exist. Objective - Vital Signs Vital signs: Vital Signs Temp 97.9 F 12/24/23 07:10 Pulse 73 12/24/23 07:10 Resp 16 12/24/23 07:10 BP 89/54 12/24/23 07:10 Pulse Ox 96 12/24/23 07:10 FiO2 Intake & Output 12/23/23 12/24/23 12/24/23 18:59 06:59 18:59 Intake Total 100 740 Balance 100 740 Weight 77.564 kg Intake: Intake, IV Titration 100 340 Amount Cefepime 2 gm In Sodium 100 Chloride 0.9% 100 ml @ 25 mls/hr IVPB Q12H [facility] Rx# :[id number] Cefepime 2 gm In Sodium 100 Chloride 0.9% 100 ml @ 25 mls/hr IVPB Q8HR [facility] Rx# :[id number] Sodium Chloride 0.9% 1, 240 000 ml @ 20 mls/hr IV . Q24H [facility] Rx#:[id number] Oral 400 Other: Voiding Method Diaper Diaper Incontinent Incontinent # Voids 2 - Labs CBC & Chem 7: 12/22/23 19:19 12/23/23 12:16 Labs: Abnormal Lab Results - Last 24 Hours (Table) 12/23/23 12/23/23 12/23/23 Range/Units 11:59 12:16 15:49 Sodium 133 L (137-145) mmol/L Potassium 3.4 L (3.5-5.1) mmol/L BUN 21 H (7-17) mg/dL Creatinine 1.20 H (0.52-1.04) mg/dL Glucose 192 H (74-99) mg/dL POC Glucose (mg/dL) 208 H (70-110) mg/dL Calcium 8.2 L (8.4-10.2) mg/dL Procalcitonin 0.50 H (0.02-0.09) ng/mL 12/23/23 12/23/23 12/24/23 Range/Units 17:37 20:22 07:11 Sodium (137-145) mmol/L Potassium (3.5-5.1) mmol/L BUN (7-17) mg/dL Creatinine (0.52-1.04) mg/dL Glucose (74-99) mg/dL POC Glucose (mg/dL) 226 H 247 H 56 L (70-110) mg/dL Calcium (8.4-10.2) mg/dL Procalcitonin (0.02-0.09) ng/mL
[2023-12-24 11:24] LABS: Calcium 8.6 mg/dL (8.7-10.3); Carbon Dioxide 21.3 mmol/L (21.6-31.8); Chloride 104 mmol/L (96-109); Glucose 57 mg/dL (70-110); Sodium 136 mmol/L (135-145)
[2023-12-24 11:43] LABS: Basophils # (A) 0.01 X 10*3/uL (0.00-0.10); Eosinophils # (A) 0.01 X 10*3/uL (0.04-0.35); HGB 8.4 g/dL (12.0-15.0); Immature Grans, Automated 0 %; Immature Platelet Fraction 7.7 % (1.1-6.1); Lymphocytes # (A) 0.27 X 10*3/uL (0.90-5.00); Lymphocytes % (A) 55.1 %; MCH 29.7 pg (27.0-32.0); MCHC 33.6 g/dL (32.0-37.0); MCV 88.3 FL (80.0-97.0); Mean Platelet Volume 11.1 FL (9.5-12.2); Monocytes # (A) 0.11 X 10*3/uL (0.20-1.00); Monocytes % (A) 22.4 %; NRBC Per 100 WBC 0 X 10*3/uL (0.00-0.01); Neutrophils # (A) 0.09 X 10*3/uL (1.80-7.70); Neutrophils % (A) 18.5 %; Platelet Count 19 X 10*3/uL (140-440); RBC 2.83 X 10*6/uL (4.10-5.20); RBC Morphology Normal (Normal); RDW 14.7 % (11.5-14.5); WBC 0.49 X 10*3/uL (4.50-10.00)
[2023-12-24 11:56] LABS: Glucose,Whole Blood 112 mg/dL (70-110)
[2023-12-24] MEDS: LACTATED RINGERS 1,000 ML IV SCH (12:29)
--- NOTE | 2023-12-24 16:34 | P.PN ---
Subjective Progress Note Date: 12/24/23 Principal diagnosis: Reason for follow-up with febrile neutropenia/pneumonia Patient is a 73-year-old female with a past medical history significant for diabetes mellitus hypertension hyperlipidemia osteoarthritis atrial fibrillation and history of left breast cancer on chemo presenting to the hospital with fever and did have a white count. On today's evaluation that is 12/24/2023, the patient did have resolution of her fever and the patient is afebrile this morning, the patient is on room air and breathing comfortably, the Pt denies having any chest pain cough is decreased in intensity and no significant sputum production, the patient denies having any abdominal pain no vomiting or any diarrhea. Patient white count is 0.49 creatinine is 1.5 procalcitonin 0.50 Objective - Vital Signs Vital signs: Vital Signs Temp 97.4 F L 12/24/23 16:04 Pulse 70 12/24/23 16:14 Resp 16 12/24/23 16:14 BP 91/57 12/24/23 16:14 Pulse Ox 98 12/24/23 16:14 FiO2 Intake & Output 12/23/23 12/24/23 12/24/23 18:59 06:59 18:59 Intake Total 100 740 0 Balance 100 740 0 Weight 77.564 kg Intake: Intake, IV Titration 100 340 Amount Cefepime 2 gm In Sodium 100 Chloride 0.9% 100 ml @ 25 mls/hr IVPB Q12H [facility] Rx# :[id number] Cefepime 2 gm In Sodium 100 Chloride 0.9% 100 ml @ 25 mls/hr IVPB Q8HR [facility] Rx# :[id number] Sodium Chloride 0.9% 1, 240 000 ml @ 20 mls/hr IV . Q24H [facility] Rx#:[id number] Oral 400 Blood Product 0 Unit 0 Other: Voiding Method Diaper Diaper Incontinent Incontinent # Voids 2 - Exam GENERAL DESCRIPTION: An elderly female lying in bed in no distress RESPIRATORY SYSTEM: Unlabored breathing , decreased breath sounds at bases HEART: S1 S2 regular rate and rhythm , ABDOMEN: Soft , no tenderness EXTREMITIES: No edema feet - Labs CBC & Chem 7: 12/24/23 05:46 12/24/23 05:46 Labs: Abnormal Lab Results - Last 24 Hours (Table) 12/23/23 12/23/23 12/23/23 Range/Units 15:49 17:37 20:22 WBC (4.50-10.00) X 10*3/uL RBC (4.10-5.20) X 10*6/uL Hgb (12.0-15.0) g/dL Hct (37.2-46.3) % RDW (11.5-14.5) % Plt Count (140-440) X 10*3/uL Neutrophils # (1.80-7.70) X 10*3/uL Lymphocytes # (0.90-5.00) X 10*3/uL Monocytes # (0.20-1.00) X 10*3/uL Eosinophils # (0.04-0.35) X 10*3/uL Immature Plt Fraction (1.1-6.1) % Potassium (3.5-5.5) mmol/L Carbon Dioxide (21.6-31.8) mmol/L Est GFR (CKD-EPI) (>=60) Glucose (70-110) mg/dL POC Glucose (mg/dL) 226 H 247 H (70-110) mg/dL Calcium (8.7-10.3) mg/dL Procalcitonin 0.50 H (0.02-0.09) ng/mL 12/24/23 12/24/23 12/24/23 Range/Units 05:46 05:46 07:11 WBC 0.49 A* (4.50-10.00) X 10*3/uL RBC 2.83 L (4.10-5.20) X 10*6/uL Hgb 8.4 L (12.0-15.0) g/dL Hct 25.0 L (37.2-46.3) % RDW 14.7 H (11.5-14.5) % Plt Count 19 A* (140-440) X 10*3/uL Neutrophils # 0.09 A* (1.80-7.70) X 10*3/uL Lymphocytes # 0.27 L (0.90-5.00) X 10*3/uL Monocytes # 0.11 L (0.20-1.00) X 10*3/uL Eosinophils # 0.01 L (0.04-0.35) X 10*3/uL Immature Plt Fraction 7.7 H (1.1-6.1) % Potassium 3.0 L (3.5-5.5) mmol/L Carbon Dioxide 21.3 L (21.6-31.8) mmol/L Est GFR (CKD-EPI) 37 L (>=60) Glucose 57 L (70-110) mg/dL POC Glucose (mg/dL) 56 L (70-110) mg/dL Calcium 8.6 L (8.7-10.3) mg/dL Procalcitonin (0.02-0.09) ng/mL 12/24/23 Range/Units 11:55 WBC (4.50-10.00) X 10*3/uL RBC (4.10-5.20) X 10*6/uL Hgb (12.0-15.0) g/dL Hct (37.2-46.3) % RDW (11.5-14.5) % Plt Count (140-440) X 10*3/uL Neutrophils # (1.80-7.70) X 10*3/uL Lymphocytes # (0.90-5.00) X 10*3/uL Monocytes # (0.20-1.00) X 10*3/uL Eosinophils # (0.04-0.35) X 10*3/uL Immature Plt Fraction (1.1-6.1) % Potassium (3.5-5.5) mmol/L Carbon Dioxide (21.6-31.8) mmol/L Est GFR (CKD-EPI) (>=60) Glucose (70-110) mg/dL POC Glucose (mg/dL) 112 H (70-110) mg/dL Calcium (8.7-10.3) mg/dL Procalcitonin (0.02-0.09) ng/mL Assessment and Plan (1) Neutropenic fever Current Visit: Yes Status: Acute Priority: High Code(s): D70.9 - NEUTROPENIA, UNSPECIFIED; R50.81 - FEVER PRESENTING WITH CONDITIONS CLASSIFIED ELSEWHERE SNOMED Code(s): 751157834 (2) Pneumonia Current Visit: No Status: Acute Code(s): J18.9 - PNEUMONIA, UNSPECIFIED ORGANISM SNOMED Code(s): 827009044 Plan: 1patient with febrile neutropenia in this patient with a fever of 101 degrees for night white count has been 0.3 in this patient with a history of breast cancer on chemotherapy did have a respiratory symptoms with a right perihilar infiltrate suspicious for pneumonia to be the likely etiology 2-patient did have mild elevated procalcitonin level, blood cultures pending sputum pending collection 3-patient to continue the vancomycin and cefepime while waiting for the culture to finalize Dictation was produced using [employer] dictation software. please excuse any grammatical, word or spelling errors.
[2023-12-24 16:41] LABS: Glucose,Whole Blood 237 mg/dL (70-110)
--- NOTE | 2023-12-24 20:19 | P.PN ---
Subjective Progress Note Date: 12/24/23 Principal diagnosis: Fever, low magnesium, chemo induced pancytopenia In follow-up today patient denies any further fevers, oral irritation, nausea, vomiting, cough or shortness of breath, abdominal pain or cramping, dysuria, diarrhea, bleeding overtly but, she has some pretty severe bruising on her right upper extremity from needle sticks. Objective - Vital Signs Vital signs: Vital Signs Temp 97.9 F 12/24/23 07:10 Pulse 73 12/24/23 07:10 Resp 16 12/24/23 07:10 BP 89/54 12/24/23 07:10 Pulse Ox 96 12/24/23 07:10 FiO2 Intake & Output 12/23/23 12/24/23 12/24/23 18:59 06:59 18:59 Intake Total 100 740 Balance 100 740 Weight 77.564 kg Intake: Intake, IV Titration 100 340 Amount Cefepime 2 gm In Sodium 100 Chloride 0.9% 100 ml @ 25 mls/hr IVPB Q12H [facility] Rx# :[id number] Cefepime 2 gm In Sodium 100 Chloride 0.9% 100 ml @ 25 mls/hr IVPB Q8HR [facility] Rx# :[id number] Sodium Chloride 0.9% 1, 240 000 ml @ 20 mls/hr IV . Q24H [facility] Rx#:[id number] Oral 400 Other: Voiding Method Diaper Diaper Incontinent Incontinent # Voids 2 - Constitutional General appearance: Present: average body habitus, cooperative, no acute distress - EENT Eyes: Present: anicteric sclerae, EOMI ENT: Present: hearing grossly normal, normal oropharynx - Respiratory Respiratory: bilateral: CTA - Cardiovascular Rhythm: regular Heart sounds: normal: S1, S2 Abnormal Heart Sounds: Absent: systolic murmur, diastolic murmur, rub, S3 G allop, S4 Gallop, click, other - Peripheral edema leg Peripheral Edema: bilateral: None - Gastrointestinal General gastrointestinal: Present: normal bowel sounds, soft - Integumentary Integumentary Comment(s): rt arm bruises 2/2 needle sticks - Neurologic Neurologic: Present: CNII-XII intact - Musculoskeletal Musculoskeletal: Present: strength equal bilaterally - Psychiatric Psychiatric: Present: A&O x's 3, appropriate affect, intact judgment & insight - Labs CBC & Chem 7: 03/12/24 05:46 12/24/23 05:46 Labs: Abnormal Lab Results - Last 24 Hours (Table) 12/23/23 12/23/23 12/23/23 Range/Units 11:59 12:16 15:49 Sodium 133 L (137-145) mmol/L Potassium 3.4 L (3.5-5.1) mmol/L BUN 21 H (7-17) mg/dL Creatinine 1.20 H (0.52-1.04) mg/dL Glucose 192 H (74-99) mg/dL POC Glucose (mg/dL) 208 H (70-110) mg/dL Calcium 8.2 L (8.4-10.2) mg/dL Procalcitonin 0.50 H (0.02-0.09) ng/mL 12/23/23 12/23/23 12/24/23 Range/Units 17:37 20:22 07:11 Sodium (137-145) mmol/L Potassium (3.5-5.1) mmol/L BUN (7-17) mg/dL Creatinine (0.52-1.04) mg/dL Glucose (74-99) mg/dL POC Glucose (mg/dL) 226 H 247 H 56 L (70-110) mg/dL Calcium (8.4-10.2) mg/dL Procalcitonin (0.02-0.09) ng/mL - Imaging and Cardiology Chest x-ray: report reviewed Assessment and Plan (1) Neutropenic fever Current Visit: Yes Status: Acute Priority: High Code(s): D70.9 - NEUTROPENIA, UNSPECIFIED; R50.81 - FEVER PRESENTING WITH CONDITIONS CLASSIFIED ELSEWHERE SNOMED Code(s): 025007546 (2) Weakness Current Visit: Yes Status: Acute Priority: High Code(s): R53.1 - WEAKNESS SNOMED Code(s): 94389116 (3) Thrombocytopenia Current Visit: Yes Status: Acute Priority: High Code(s): D69.6 - THROMBOCYTOPENIA, UNSPECIFIED SNOMED Code(s): 085275881 (4) Small cell lung cancer Current Visit: Yes Status: Acute Priority: High Code(s): C34.90 - MALIGNANT NEOPLASM OF UNSP PART OF UNSP BRONCHUS OR LUNG SNOMED Code(s): 206732544 (5) Hypomagnesemia Current Visit: Yes Status: Acute Priority: High Code(s): E83.42 - HYPOMAGNESEMIA SNOMED Code(s): 194014284 Plan: Neutropenic fever -Low counts secondary to chemo. WBC 0.49, ANC 90. -Patient has been started on empiric antibiotics -Infectious disease consulted -Chest x-ray showing some opacities right upper lobe, cannot completely exclude superimposed infection -Blood cultures and urinary analysis pending -G-CSF continues -CBC daily Weakness -Secondary to neutropenic fever and chemotherapy -PT/OT while inpatient Chemotherapy-induced thrombocytopenia -Platelet count 19,000, no aspirin, NSAIDs, anticoagulation. Use SCDs for DVT prophylaxis -Pt was given eliquis last night, platelets ordered for this AM, eliquis discontinued -Transfuse for plt <10,000 or if symptomatic Extensive stage small cell lung cancer -Patient is status post first cycle of carboplatin, etoposide and Tecentriq, no G-CSF -Patient actually was doing pretty well last week with only moderate hematological toxicities. She still seems to be doing well in general, no significant physical toxicities (ie N,V, mucositis, diarrhea) but, hematological toxicities have progressed. -May consider G-CSF addition to treatment next cycle or possible chemotherapy dose reduction. Patient will be reassessed by Primary Oncologist before resuming any treatment Hypomagnesemia -Magnesium was supplemented with normal magnesium level on recheck. Continue to monitor while inpatient. Defer to internal medicine Pt was sched to have a port placed later this week as she has poor peripheral access with is further limited as the right arm cannot be used because of previous LN removal. This will have to be held for now. Accucath placement Doctor attests: I performed a history and physical examination of this patient, developed impression and plan of care. Discussed with dictator. I agree with dictators note, documented as a scribe.
[2023-12-24 20:53] LABS: Glucose,Whole Blood 166 mg/dL (70-110)
[2023-12-24] MEDS: INSULIN DETEMIR (LEVEMIR) 100 UNIT/ML SYR SQ SCH (21:55)
[2023-12-25 06:16] LABS: HCT 25.5 % (34.0-46.0); MCHC 33.4 g/dL (31.0-37.0); MCV 89.9 fL (80.0-100.0); Mean Platelet Volume 10.2; RBC 2.84 m/uL (3.80-5.40); RDW 15.1 % (11.5-15.5); WBC 1.8 k/uL (3.8-10.6)
[2023-12-25 07:02] LABS: HGB 8.5 gm/dL (11.4-16.0)
[2023-12-25 07:03] LABS: Platelet Count 41 k/uL (150-450)
[2023-12-25 07:17] LABS: Glucose,Whole Blood 72 mg/dL (70-110)
[2023-12-25 09:01] LABS: ALT 23 U/L (8-44); AST 20 U/L (13-35); Albumin 2.6 g/dL (3.8-4.9); Albumin/Globulin Ratio 1.18 Ratio (1.60-3.17); Alkaline Phosphatase 190 U/L (41-126); BUN/Creat Ratio 18.62 Ratio (12.00-20.00); Blood Urea Nitrogen 29.8 mg/dL (9.0-27.0); Calcium 8.2 mg/dL (8.7-10.3); Carbon Dioxide 22.1 mmol/L (21.6-31.8); Chloride 104 mmol/L (96-109); Globulin 2.2 g/dL (1.6-3.3); Glucose 50 mg/dL (70-110); Magnesium 1.6 mg/dL (1.5-2.4); Potassium 2.8 mmol/L (3.5-5.5); Sodium 137 mmol/L (135-145); Total Bilirubin 0.7 mg/dL (0.3-1.2); Total Protein 4.8 g/dL (6.2-8.2)
--- NOTE | 2023-12-25 11:50 | P.PN ---
Subjective Progress Note Date: 12/25/23 Principal diagnosis: Fever, low magnesium, chemo induced pancytopenia In follow-up today patient reports feeling fairly well, she is up in the chair playing cards. Denies any further fevers, oral irritation, nausea, vomiting, she is tolerating oral intake, no abdominal pain or cramping, bleeding or swelling. She reports mild/moderate bone pains, started since being inpt, per sistent, not progressive. She has not taken anything for the pain. Objective - Vital Signs Vital signs: Vital Signs Temp 98 F 12/25/23 07:15 Pulse 65 12/25/23 07:15 Resp 16 12/25/23 07:15 BP 129/55 12/25/23 07:15 Pulse Ox 96 12/25/23 07:15 FiO2 Intake & Output 12/24/23 12/25/23 12/25/23 18:59 06:59 18:59 Intake Total 0 359 Balance 0 359 Intake: Blood Product 0 359 Platelet Pheresis Pas 0 359 Psoralen Unit [id number] Other: Voiding Method Diaper Diaper Incontinent Incontinent # Voids 1 2 - Constitutional General appearance: Present: average body habitus, cooperative, no acute d istress - EENT Eyes: Present: anicteric sclerae, EOMI ENT: Present: hearing grossly normal, normal oropharynx - Respiratory Respiratory: bilateral: CTA - Cardiovascular Rhythm: regular Abnormal Heart Sounds: Absent: systolic murmur, diastolic murmur, rub, S3 Gallop, S4 Gallop, click, other - Peripheral edema leg Peripheral Edema: bilateral: None - Gastrointestinal General gastrointestinal: Present: normal bowel sounds, soft - Integumentary Integumentary: Present: normal - Neurologic Neurologic: Present: CNII-XII intact - Musculoskeletal Musculoskeletal: Present: strength equal bilaterally - Psychiatric Psychiatric: Present: A&O x's 3, appropriate affect, intact judgment & insight - Labs CBC & Chem 7: 12/25/23 05:36 12/25/23 05:36 Labs: Abnormal Lab Results - Last 24 Hours (Table) 12/24/23 12/24/23 12/24/23 Range/Units 05:46 11:55 16:39 WBC 0.49 A* (4.50-10.00) X 10*3/uL RBC 2.83 L (4.10-5.20) X 10*6/uL Hgb 8.4 L (12.0-15.0) g/dL Hct 25.0 L (37.2-46.3) % RDW 14.7 H (11.5-14.5) % Plt Count 19 A* (140-440) X 10*3/uL Neutrophils # 0.09 A* (1.80-7.70) X 10*3/uL Lymphocytes # 0.27 L (0.90-5.00) X 10*3/uL Monocytes # 0.11 L (0.20-1.00) X 10*3/uL Eosinophils # 0.01 L (0.04-0.35) X 10*3/uL Immature Plt Fraction 7.7 H (1.1-6.1) % Potassium (3.5-5.5) mmol/L BUN (9.0-27.0) mg/dL Creatinine (0.6-1.5) mg/dL Est GFR (CKD-EPI) (>=60) Glucose (70-110) mg/dL POC Glucose (mg/dL) 112 H 237 H (70-110) mg/dL Calcium (8.7-10.3) mg/dL Alkaline Phosphatase (41-126) U/L Total Protein (6.2-8.2) g/dL Albumin (3.8-4.9) g/dL Albumin/Globulin Ratio (1.60-3.17) Ratio 12/24/23 12/25/23 12/25/23 Range/Units 20:50 05:36 05:36 WBC 1.8 L (4.50-10.00) X 10*3/uL RBC 2.84 L (4.10-5.20) X 10*6/uL Hgb 8.5 L D (12.0-15.0) g/dL Hct 25.5 L (37.2-46.3) % RDW (11.5-14.5) % Plt Count (140-440) X 10*3/uL Neutrophils # (1.80-7.70) X 10*3/uL Lymphocytes # (0.90-5.00) X 10*3/uL Monocytes # (0.20-1.00) X 10*3/uL Eosinophils # (0.04-0.35) X 10*3/uL Immature Plt Fraction (1.1-6.1) % Potassium 2.8 L (3.5-5.5) mmol/L BUN 29.8 H (9.0-27.0) mg/dL Creatinine 1.6 H (0.6-1.5) mg/dL Est GFR (CKD-EPI) 34 L (>=60) Glucose 50 L (70-110) mg/dL POC Glucose (mg/dL) 166 H (70-110) mg/dL Calcium 8.2 L (8.7-10.3) mg/dL Alkaline Phosphatase 190 H (41-126) U/L Total Protein 4.8 L (6.2-8.2) g/dL Albumin 2.6 L (3.8-4.9) g/dL Albumin/Globulin Ratio 1.18 L (1.60-3.17) Ratio Microbiology - Last 24 Hours (Table) 12/24/23 11:53 Gram Stain - Preliminary Sputum 12/23/23 15:57 Blood Culture - Preliminary Blood 12/23/23 15:53 Blood Culture - Preliminary Blood Assessment and Plan (1) Neutropenic fever Current Visit: Yes Status: Acute Priority: High Code(s): D70.9 - NEUTROPENIA, UNSPECIFIED; R50.81 - FEVER PRESENTING WITH CONDITIONS CLASSIFIED ELSEWHERE SNOMED Code(s): 611597622 (2) Weakness Current Visit: Yes Status: Acute Priority: High Code(s): R53.1 - WEAKNESS SNOMED Code(s): 38227518 (3) Thrombocytopenia Current Visit: Yes Status: Acute Priority: High Code(s): D69.6 - THROMBOCYTOPENIA, UNSPECIFIED SNOMED Code(s): 398244082 (4) Small cell lung cancer Current Visit: Yes Status: Acute Priority: High Code(s): C34.90 - MALIGNANT NEOPLASM OF UNSP PART OF UNSP BRONCHUS OR LUNG SNOMED Code(s): 926461823 (5) Hypomagnesemia Current Visit: Yes Status: Acute Priority: High Code(s): E83.42 - HYPOMAGNESEMIA SNOMED Code(s): 769801858 Plan: Neutropenic fever -Low counts secondary to chemo. WBC 1.8 today, no ANC reported yet. -Cont on empiric antibiotics -ID has seen pt -Chest x-ray showing some opacities right upper lobe, cannot completely exclude superimposed infection -Blood cultures neg at 24 hours. -G-CSF continues for today, pending ANC -CBC with diff daily -Pt encouraged to use tylenol for bone pain 2/2 GCSF. Added daily claritin Weakness -Secondary to neutropenic fever and chemotherapy -Pt up in chair today, looks better -PT/OT while inpatient Chemotherapy-induced thrombocytopenia -Platelet count still pending today. No aspirin, NSAIDs, anticoagulation unless plt are >50,000. Use SCDs for DVT prophylaxis -Transfuse for plt <10,000 or if symptomatic Extensive stage small cell lung cancer -Patient is status post first cycle of carboplatin, etoposide and Tecentriq, no G-CSF -Patient actually was doing pretty well last week with only moderate hematological toxicities. She still seems to be doing well in general, no significant physical toxicities (ie N,V, mucositis, diarrhea) but, hematological toxicities did worsen. -May consider G-CSF addition to treatment next cycle or possible chemotherapy dose reduction. Patient will be reassessed by Primary Oncologist before resuming any treatment Hypomagnesemia -Magnesium was supplemented with normal magnesium level on recheck. Continue to monitor while inpatient. Defer to internal medicine Pt was sched to have a port placed later this week as she has poor peripheral access with is further limited as the right arm cannot be used because of previous LN removal. This will have to be held for now. Accucath placement Doctor attests: I performed a history and physical examination of this patient, developed impression and plan of care. Discussed with dictator. I agree with dictators note, documented as a scribe.
[2023-12-25 12:19] LABS: Glucose,Whole Blood 225 mg/dL (70-110)
[2023-12-25 12:36] LABS: Band Neutrophils % 2 %; Eosinophils # (M) 0.02 k/uL (0-0.7); Lymphocytes # (M) 0.77 k/uL (1.0-4.8); Monocytes # (M) 0.25 k/uL (0-1.0); Neutrophils % (M) 40 %; Nucleated Red Blood Cells 0 /100 WBC (0-0); Total Cells Counted 100
[2023-12-25 12:38] LABS: RBC Morphology Normal
[2023-12-25] MEDS: MAGNESIUM OXIDE 400 MG TAB PO SCH (13:01)
[2023-12-25] MEDS: POTASSIUM CHLORIDE ER 20 MEQ TAB.ER PO STA (13:01)
[2023-12-25] MEDS: LORATADINE 10 MG TAB PO SCH (13:01)
[2023-12-25] MEDS: MAGNESIUM SULFATE-D5W PMX 1 GM in DEXTROSE/WATER 1 100ML.BAG IVPB SCH (13:18)
[2023-12-25] MEDS: POTASSIUM CHLORIDE 10 MEQ in WATER FOR INJECTION 1 100ML.BAG IVPB SCH (13:19)
--- NOTE | 2023-12-25 14:32 | P.PN ---
Subjective Progress Note Date: 12/25/23 (delayed charting seen at 0830) Patient is a 73-year-old female with recently diagnosed small cell lung cancer (diagnosed 2 months ago, started first round of chemotherapy 2 weeks ago), A-fib anitcoagulated with Eliquis, type II DM, COPD, hypertension, and hyperlipidemia who presented to the emergency room for weakness. In the emergency departent she underwent an extensive evaluation. Laboratory analysis was remarkable magnesium 1.2, WBC count 0.3, platelet count 22, sodium 132, BUN 23, creatinine 1.16 (at baseline), total bilirubin 1.4, and alkaline phosphatase 259. Her urinalysis was unremarkable. She was placed in observation for wekaness. Pt was given IVF and had some improvement. Unfortunately, she spiked a fever of 102.3F on 12/23/23. Chest x-ray was preformed that showed no acute process. She was started on cefepime. Oncology started on patient on filgastrim. Infectious disease was consulted. Blood cultures were obtained. Infectious disease was consulted. After being started on GCSF stimulator her white blood cell count improved. Her fevers resolved. Patinet seen and examined at bedside. She reports she is feeling better today. She denies any shortness of breath, nausea, vomiting. She states her appetite is coming back and she did well with eating yesterday. She is having diffuse bone pain. We discussed that this is likely due to her GCSF stimulator. Vital signs reviewed General: nontoxic, no distress, appears at stated age Cardiovascular: S1S2 reg, no murmur Lungs: decreased bs bilateral, no rhonchi, no rales, no accessory muscle use Abdominal: soft, nontender to palpation, no guarding Ext: no gross muscle atrophy, no edema b/l lower extremities, no contractures Neuro: CN II-XI grossly intact, no focal neuro deficits Psych: Alert, oriented, appropriate affect Assessment/Plan: Neutropenic Fevers Thrombocytopenia Extensive stage Small Cell Carcinoma Debility, in setting of chemotherapy for small cell lung cancer -Case discussed with oncology. They believe that the patient will be okay to start oral antibiotics and be discharged tomorrow depending on what her white blood cell count is. She was scheduled for a port later this week which will be delayed. - could be PNA given RUL infiltrat on CXR - Cefepime 2 grams IV q 12 hours D # 3 - Await further ID recs - PT/OT recs - Lactated ringers 75 cc/hr. - eliquis on hold due to thrombocytopenia - hold aldactone and hydralazine due to low BP Hypokalemia and hypomagnesemia -Potassium chloride 40 mill equivalents IV x 1, potassium chloride 40 mill equivalents p.o. x 1 -Magnesium 3 g -Repeat basic metabolic profile and magnesium in a.m. -Baseline creatinine 1.6 Type II DM, Hypoglycemia - SSI - Levemir to 10 units at night - follow BS Chronic conditions COPD without exacerbation, hypertension hyperlipidemia A-fib Imaging: None new Data Review: Labs reviewed from today reviewed and remarkable for white blood cell count 1.8, hemoglobin 8.5, platelets 41 up from 19, potassium 2.8, creatinine 1.6, and magnesium 1.6 DVT prophylaxis: SCDs Anticipated discharge date: in AM Anticipated discharge place: Home with home health This dictation was prepared using [employer] voice recognition software. Though every attempt is made to correct errors during dictation some may still exist. Objective - Vital Signs Vital signs: Vital Signs Temp 97.5 F L 12/25/23 12:17 Pulse 67 12/25/23 12:17 Resp 16 12/25/23 12:17 BP 94/57 12/25/23 12:17 Pulse Ox 96 12/25/23 12:17 FiO2 Intake & Output 12/24/23 12/25/23 12/25/23 18:59 06:59 18:59 Intake Total 0 359 Balance 0 359 Intake: Blood Product 0 359 Platelet Pheresis Pas 0 359 Psoralen Unit [id number] Other: Voiding Method Diaper Diaper Bedside Commode Incontinent Incontinent Diaper # Voids 1 2 - Labs CBC & Chem 7: 12/25/23 05:36 12/25/23 05:36 Labs: Abnormal Lab Results - Last 24 Hours (Table) 12/24/23 12/24/23 12/25/23 Range/Units 16:39 20:50 05:36 WBC 1.8 L (3.8-10.6) k/uL RBC 2.84 L (3.80-5.40) m/uL Hgb 8.5 L D (11.4-16.0) gm/dL Hct 25.5 L (34.0-46.0) % Plt Count 41 L D (150-450) k/uL Neutrophils # (Manual) 0.70 L (1.3-7.7) k/uL Lymphocytes # (Manual) 0.77 L (1.0-4.8) k/uL Potassium (3.5-5.5) mmol/L BUN (9.0-27.0) mg/dL Creatinine (0.6-1.5) mg/dL Est GFR (CKD-EPI) (>=60) Glucose (70-110) mg/dL POC Glucose (mg/dL) 237 H 166 H (70-110) mg/dL Calcium (8.7-10.3) mg/dL Alkaline Phosphatase (41-126) U/L Total Protein (6.2-8.2) g/dL Albumin (3.8-4.9) g/dL Albumin/Globulin Ratio (1.60-3.17) Ratio 12/25/23 12/25/23 Range/Units 05:36 12:18 WBC (3.8-10.6) k/uL RBC (3.80-5.40) m/uL Hgb (11.4-16.0) gm/dL Hct (34.0-46.0) % Plt Count (150-450) k/uL Neutrophils # (Manual) (1.3-7.7) k/uL Lymphocytes # (Manual) (1.0-4.8) k/uL Potassium 2.8 L (3.5-5.5) mmol/L BUN 29.8 H (9.0-27.0) mg/dL Creatinine 1.6 H (0.6-1.5) mg/dL Est GFR (CKD-EPI) 34 L (>=60) Glucose 50 L (70-110) mg/dL POC Glucose (mg/dL) 225 H (70-110) mg/dL Calcium 8.2 L (8.7-10.3) mg/dL Alkaline Phosphatase 190 H (41-126) U/L Total Protein 4.8 L (6.2-8.2) g/dL Albumin 2.6 L (3.8-4.9) g/dL Albumin/Globulin Ratio 1.18 L (1.60-3.17) Ratio Microbiology - Last 24 Hours (Table) 12/24/23 11:53 Gram Stain - Preliminary Sputum 12/23/23 15:57 Blood Culture - Preliminary Blood 12/23/23 15:53 Blood Culture - Preliminary Blood
[2023-12-25 16:49] LABS: Glucose,Whole Blood 147 mg/dL (70-110)
[2023-12-25] MEDS: CEFEPIME 1 GM in SODIUM CHLORIDE 0.9% 50 ML IVPB SCH (18:56)
[2023-12-25 20:00] LABS: Glucose,Whole Blood 210 mg/dL (70-110)
[2023-12-26 02:20] LABS: Glucose,Whole Blood 48 mg/dL (70-110)
[2023-12-26] MEDS: DEXTROSE 50% SYRINGE 50 ML IVP ONE (02:28)
[2023-12-26 02:29] LABS: Glucose,Whole Blood 171 mg/dL (70-110)
[2023-12-26 03:13] LABS: Glucose,Whole Blood 137 mg/dL (70-110)
[2023-12-26 05:48] LABS: HCT 24.1 % (34.0-46.0); HGB 8.1 gm/dL (11.4-16.0); MCH 30.4 pg (25.0-35.0); MCHC 33.5 g/dL (31.0-37.0); MCV 90.7 fL (80.0-100.0); Mean Platelet Volume 10.8; RBC 2.66 m/uL (3.80-5.40); RDW 15.2 % (11.5-15.5); WBC 3.6 k/uL (3.8-10.6)
[2023-12-26 05:49] LABS: Platelet Count 49 k/uL (150-450)
[2023-12-26 06:00] LABS: Band Neutrophils % 28 %; Metamyelocytes # (M) 0.07 k/uL (0); Metamyelocytes % 2 %; Monocytes # (M) 0.47 k/uL (0-1.0); Neutrophils % (M) 21 %; Nucleated Red Blood Cells 0 /100 WBC (0-0); Total Cells Counted 200
[2023-12-26 06:01] LABS: African American GFR (CKD) 35 (>60 ml/min/1.73 sqM); Anion Gap 3 mmol/L; Blood Urea Nitrogen 27 mg/dL (7-17); Carbon Dioxide 21 mmol/L (22-30); Chloride 112 mmol/L (98-107); Glucose 68 mg/dL (74-99); Magnesium 2.5 mg/dL (1.6-2.3); Non-African American GFR(CKD) 30 (>60 ml/min/1.73 sqM); Potassium 3.5 mmol/L (3.5-5.1); Sodium 136 mmol/L (137-145)
[2023-12-26 06:09] LABS: Glucose,Whole Blood 43 mg/dL (70-110)
[2023-12-26] MEDS: DEXTROSE 50% SYRINGE 50 ML IVP PRN (06:10)
[2023-12-26 06:46] LABS: Glucose,Whole Blood 159 mg/dL (70-110)
[2023-12-26 07:17] LABS: Glucose,Whole Blood 140 mg/dL (70-110)
[2023-12-26 08:15] VITALS: BP 99/52; PULSE 66; TEMP 98.3
[2023-12-26] MEDS: Pre Op ABX Message 1 EACH MISC MISCELLANE ONE (08:28)
--- NOTE | 2023-12-26 10:48 | P.PN ---
Subjective Progress Note Date: 12/26/23 Principal diagnosis: Fever, low magnesium, chemo induced pancytopenia In follow-up today patient reports feeling good, she feels she is ready to go home. No fevers, tolerating oral intake, bone pain is improved with tylenol. Objective - Vital Signs Vital signs: Vital Signs Temp 98.3 F 12/26/23 07:14 Pulse 66 12/26/23 07:14 Resp 16 12/26/23 07:14 BP 99/52 12/26/23 07:14 Pulse Ox 97 12/26/23 07:14 FiO2 Intake & Output 12/25/23 12/26/23 12/26/23 18:59 06:59 18:59 Other: Voiding Method Bedside Commode Bedside Commode Diaper Diaper # Voids 1 1 # Bowel Movements 1 - Constitutional General appearance: Present: average body habitus, cooperative, no acute distress - EENT Eyes: Present: anicteric sclerae, EOMI ENT: Present: hearing grossly normal - Respiratory Details: resp even and unlabored at rest - Cardiovascular Details: skin warm and dry to touch - Peripheral edema leg Peripheral Edema: bilateral: None - Neurologic Neurologic: Present: CNII-XII intact - Musculoskeletal Musculoskeletal: Present: generalized weakness - Psychiatric Psychiatric: Present: A&O x's 3, appropriate affect, intact judgment & insight - Labs CBC & Chem 7: 12/26/23 04:35 12/26/23 04:35 Labs: Abnormal Lab Results - Last 24 Hours (Table) 12/25/23 12/25/23 12/25/23 Range/Units 05:36 12:18 16:48 WBC (3.8-10.6) k/uL RBC (3.80-5.40) m/uL Hgb (11.4-16.0) gm/dL Hct (34.0-46.0) % Plt Count 41 L D (150-450) k/uL Neutrophils # (Manual) 0.70 L (1.3-7.7) k/uL Lymphocytes # (Manual) 0.77 L (1.0-4.8) k/uL Metamyelocytes # (Man) (0) k/uL Sodium (137-145) mmol/L Chloride (98-107) mmol/L Carbon Dioxide (22-30) mmol/L BUN (7-17) mg/dL Creatinine (0.52-1.04) mg/dL Glucose (74-99) mg/dL POC Glucose (mg/dL) 225 H 147 H (70-110) mg/dL Calcium (8.4-10.2) mg/dL Magnesium (1.6-2.3) mg/dL 12/25/23 12/26/23 12/26/23 Range/Units 19:58 02:17 02:28 WBC (3.8-10.6) k/uL RBC (3.80-5.40) m/uL Hgb (11.4-16.0) gm/dL Hct (34.0-46.0) % Plt Count (150-450) k/uL Neutrophils # (Manual) (1.3-7.7) k/uL Lymphocytes # (Manual) (1.0-4.8) k/uL Metamyelocytes # (Man) (0) k/uL Sodium (137-145) mmol/L Chloride (98-107) mmol/L Carbon Dioxide (22-30) mmol/L BUN (7-17) mg/dL Creatinine (0.52-1.04) mg/dL Glucose (74-99) mg/dL POC Glucose (mg/dL) 210 H 48 L 171 H (70-110) mg/dL Calcium (8.4-10.2) mg/dL Magnesium (1.6-2.3) mg/dL 12/26/23 12/26/23 12/26/23 Range/Units 03:11 04:35 04:35 WBC 3.6 L (3.8-10.6) k/uL RBC 2.66 L (3.80-5.40) m/uL Hgb 8.1 L (11.4-16.0) gm/dL Hct 24.1 L (34.0-46.0) % Plt Count 49 L (150-450) k/uL Neutrophils # (Manual) (1.3-7.7) k/uL Lymphocytes # (Manual) (1.0-4.8) k/uL Metamyelocytes # (Man) 0.07 H (0) k/uL Sodium 136 L (137-145) mmol/L Chloride 112 H (98-107) mmol/L Carbon Dioxide 21 L (22-30) mmol/L BUN 27 H (7-17) mg/dL Creatinine 1.70 H (0.52-1.04) mg/dL Glucose 68 L (74-99) mg/dL POC Glucose (mg/dL) 137 H (70-110) mg/dL Calcium 8.0 L (8.4-10.2) mg/dL Magnesium 2.5 H (1.6-2.3) mg/dL 12/26/23 12/26/23 12/26/23 Range/Units 06:08 06:36 07:16 WBC (3.8-10.6) k/uL RBC (3.80-5.40) m/uL Hgb (11.4-16.0) gm/dL Hct (34.0-46.0) % Plt Count (150-450) k/uL Neutrophils # (Manual) (1.3-7.7) k/uL Lymphocytes # (Manual) (1.0-4.8) k/uL Metamyelocytes # (Man) (0) k/uL Sodium (137-145) mmol/L Chloride (98-107) mmol/L Carbon Dioxide (22-30) mmol/L BUN (7-17) mg/dL Creatinine (0.52-1.04) mg/dL Glucose (74-99) mg/dL POC Glucose (mg/dL) 43 L 159 H 140 H (70-110) mg/dL Calcium (8.4-10.2) mg/dL Magnesium (1.6-2.3) mg/dL Microbiology - Last 24 Hours (Table) 12/24/23 11:53 Gram Stain - Final Sputum Sputum Culture - Final 12/23/23 15:57 Blood Culture - Preliminary Blood 12/23/23 15:53 Blood Culture - Preliminary Blood 12/24/23 12:42 Nasal Screen MRSA/MSSA - Final Nasal Swab Assessment and Plan (1) Neutropenic fever Current Visit: Yes Status: Acute Priority: High Code(s): D70.9 - NEUTROPENIA, UNSPECIFIED; R50.81 - FEVER PRESENTING WITH CONDITIONS CLASSIFIED ELSEWHERE SNOMED Code(s): 882228556 (2) Weakness Current Visit: Yes Status: Acute Priority: High Code(s): R53.1 - WEAKNESS SNOMED Code(s): 65255820 (3) Thrombocytopenia Current Visit: Yes Status: Acute Priority: High Code(s): D69.6 - THROMBOCYTOPENIA, UNSPECIFIED SNOMED Code(s): 498896042 (4) Small cell lung cancer Current Visit: Yes Status: Acute Priority: High Code(s): C34.90 - MALIGNANT NEOPLASM OF UNSP PART OF UNSP BRONCHUS OR LUNG SNOMED Code(s): 924024653 (5) Hypomagnesemia Current Visit: Yes Status: Acute Priority: High Code(s): E83.42 - HYPOMAGNESEMIA SNOMED Code(s): 324175288 Plan: Neutropenic fever-resolved -Low counts secondary to chemo. WBC 3.6, today, ANC 1.7. -ID has seen pt -Chest x-ray showing some opacities right upper lobe, cannot completely exclude superimposed infection -Blood cultures neg at 24 hours. -DC GCSF today -Discussed case with Attending. Plans for oral abx to complete 10 days of treatment Weakness -Secondary to neutropenic fever and chemotherapy -Pt cont to improve. Reports ready to go home, where she will likely be more active -PT/OT while inpatient Chemotherapy-induced thrombocytopenia -Platelet count 49,000. Cont to hold anticoagulation. Lab encounter for Saturday at Oncology office, appt in DC plan Extensive stage small cell lung cancer -Patient is status post first cycle of carboplatin, etoposide and Tecentriq, no G-CSF -Patient actually was doing pretty well last week with only moderate hematological toxicities. She still seems to be doing well in general, no significant physical toxicities (ie N,V, mucositis, diarrhea) but, hematological toxicities did worsen. -Dose reduction for next cycle ordered per Primary Oncologist Hypomagnesemia -Magnesium was supplemented with elevated magnesium level today. Told pt and family to hold any mag supplements for now, will recheck on Saturday in ofc. Pt was sched to have a port placed later this week as she has poor peripheral access with is further limited as the right arm cannot be used because of previous LN removal. This will have to be held for now. Will try and reschedule for a few weeks
--- NOTE | 2023-12-26 17:03 | P.DS ---
Providers Date of admission: 12/24/23 07:00 Expected date of discharge: 12/26/23 Attending physician: Chau Max MD Consults: 12/23/23 03:50 Consult Physician Urgent Consulting Provider: Bart Lyon Consult Reason/Comments: small cell lung ca Do you want consulting provider notified?: Yes 12/23/23 15:07 Consult Physician Urgent Consulting Provider: Meagan Malagon Consult Reason/Comments: neutropenic fever Do you want consulting provider notified?: Yes Primary care physician: [facility] Course: Discharge Diagnosis: Neutropenic Fevers Thrombocytopenia Extensive stage Small Cell Carcinoma Debility, in setting of chemotherapy for small cell lung cancer Hypokalemia and hypomagnesemia Type II DM, Hypoglycemia COPD without exacerbation, hypertension hyperlipidemia P. A-fib Hospital Course: Patient is a 73-year-old female with recently diagnosed small cell lung cancer (diagnosed 2 months ago, started first round of chemotherapy 2 weeks ago), A-fib anitcoagulated with Eliquis, type II DM, COPD, hypertension, and hyperlipidemia who presented to the emergency room for weakness. In the emergency departent she underwent an extensive evaluation. Laboratory analysis was remarkable magnesium 1.2, WBC count 0.3, platelet count 22, sodium 132, BUN 23, creatinine 1.16 (at baseline), total bilirubin 1.4, and alkaline phosphatase 259. Her urinalysis was unremarkable. She was placed in observation for wekaness. Pt was given IVF and had some improvement. Unfortunately, she spiked a fever of 102.3F on 12/23/23. Chest x-ray was preformed that showed no acute process. She was started on cefepime. Oncology started on patient on filgastrim. Infectious disease was consulted. Blood cultures were obtained. Infectious disease was consulted. After being started on GCSF stimulator her white blood cell count improved. Her fevers resolved. Her white blood cell count increased to 3.6, her culturees remained negative. She did have some issues with hypoglycemia which was felt to be due to low oral intake. She was cleared by oncology. However she was eating on the morning of discharge and these have resolved. Blood sugar at the time of discharge was 140. She was subsequently discharged home in stable condition with the below instructions. Follow-up: She will complete Levaquin for 6 more days and Augmentin for 6 more days. Her enalapril was changed to once daily due to low blood pressures here and she was taken off of Lasix and spironolactone and hydrochlorothiazide. She will check her blood pressures daily. She did have episodes of hypoglycemia during her hospital stay and she was taken off of both of Actos and her Tresiba. She has a Dexcom at home which she will wear. She will resume half dose of her Tresiba once her blood sugars become greater than 160. She was given very explicit instructions. She will follow-up with Akanksha ayon on 12/29 at 9:[address] De Jesus on 12/31. She will stay off of her Eliquis until she has her CBC repeated on 12/29 due to platelets being less than 50. Patient seen and examined at bedside. Feeling better, had some low blood sugars. Appetitie is coming back. She feels comfortable going home. Vital signs reviewed and stable. General: Nontoxic, no distress, appears at stated age Cardiovascular: S1S2 reg, no murmur, positive posterior tibial pulse bilateral, Lungs: CTA bilateral, no rhonchi, no rales, no accessory muscle use Abdominal: Soft, nontender to palpation, no guarding, no appreciable organomegaly Ext: No gross muscle atrophy, no edema b/l lower extremities, no contractures Neuro: CN II-XI grossly intact, no focal neuro deficits Psych: Alert, oriented, appropriate affect A total of 45 minutes of time were spent preparing this complex discharge summary. Patient was discharged on 12/26/23. This dictation was prepared using [employer] voice recognition software. Though every attempt is made to correct errors during dictation some may still exist. Patient Condition at Discharge: Good Plan - Discharge Summary Discharge Rx Participant: No New Discharge Prescriptions: New Acetaminophen Tab [Tylenol] 650 mg PO Q6HR PRN tab PRN Reason: Fever And/ Or Pain Levofloxacin [Levaquin] 750 mg PO Q48H 1 Days #3 tab Amoxic-Pot Clav 875-125Mg [Augmentin 875-125] 1 tab PO BID #13 tab Continue Rosuvastatin Calcium [Crestor] 40 mg PO DAILY oxyBUTYnin chloride [Ditropan] 5 mg PO DAILY Esomeprazole Magnesium [NexIUM] 40 mg PO DAILY Anastrozole 1 mg PO DAILY ALPRAZolam [Xanax] 0.5 mg PO BID PRN PRN Reason: Anxiety Potassium Chloride ER [K-Dur 20] 20 meq PO DAILY Escitalopram [Lexapro] 20 mg PO DAILY Changed Enalapril [Vasotec] 20 mg PO DAILY #0 Discontinued Pioglitazone [Actos] 15 mg PO DAILY Apixaban [Eliquis] 5 mg PO BID #60 tab Furosemide [Lasix] 20 mg PO DAILY Ondansetron [Zofran] 4 - 8 mg PO Q4-6H PRN PRN Reason: Nausea Spironolactone 25 mg PO DAILY hydrALAZINE HCL [Apresoline] 25 mg PO BID Insulin Degludec [Tresiba] 15 units SQ HS Discharge Medication List Anastrozole 1 mg PO DAILY 11/20/23 [History] ALPRAZolam [Xanax] 0.5 mg PO BID PRN 12/20/23 [History] Acetaminophen Tab [Tylenol] 650 mg PO Q6HR PRN tab 12/23/23 [Rx] Escitalopram [Lexapro] 20 mg PO DAILY 12/23/23 [History] Esomeprazole Magnesium [NexIUM] 40 mg PO DAILY 12/23/23 [History] Potassium Chloride ER [K-Dur 20] 20 meq PO DAILY 12/23/23 [History] Rosuvastatin Calcium [Crestor] 40 mg PO DAILY 12/23/23 [History] oxyBUTYnin chloride [Ditropan] 5 mg PO DAILY 12/23/23 [History] Amoxic-Pot Clav 875-125Mg [Augmentin 875-125] 1 tab PO BID #13 tab 12/26/23 [Rx] Enalapril [Vasotec] 20 mg PO DAILY #0 12/26/23 [Rx] Levofloxacin [Levaquin] 750 mg PO Q48H 1 Days #3 tab 12/26/23 [Rx] Follow up Appointment(s)/Referral(s): Mandy Ayon NPC [Nurse Practitioner] - 12/30/23 9:30 am (THIS IS A LAB ENCOUNTER ) Jose Angel De Jesus MD [STAFF PHYSICIAN] - 01/01/24 8:30 am (This is appt for chemo. Keep this appt per Oncologist) Quinten Zelaya MD [REFERRING] - 1 Week [facility], [NON-STAFF] - 1 Week Jaden Barajas DO [Primary Care Provider] - 1-2 days Patient Instructions/Handouts: Enalapril (By mouth), Pioglitazone (By mouth), Insulin Degludec (By injection), Weakness (DC), Hypomagnesemia (DC), Neutropenia (DC), Thrombocytopenia (DC) Activity/Diet/Wound Care/Special Instructions: Activity: As tolerated Diet: Regular Wound Care: Stay off your Tresiba and actos at home. Apply your dexcom and increase your appetitie. Once your blood sugar has been over an average of 160 for a day or over 180 for greater than 12 hours. Resume your Tresiba at 1/2 your typical dose and call Dr. Zelaya. Increase your oral intake Repeat CBC and BMP with oncology next week Make sure you eat a snack before bed tonight please. Keep your Eliquis on hand at home, as you will take it if your platelets are above 50 during your treatments. Please call Dr Malin's office to schedule appointment for port insertion, after antibiotics are finished and cleared by your primary care doctor. Discharge Disposition: HOME WITH HOME HEALTH SERVICES
== END 2023-12-26 13:07 | disposition home health service (06) | DRG 640 ==
LOC: EC 19:04 → 5NMEDONC 22:36 → OBSVTOIN 12-24 07:00
PROVIDERS: ADMIT Internal Medicine; ATTEND Internal Medicine
PROC: 30233R1 Transfusion of Nonautologous Platelets into Peripheral Vein, Percutaneous Approach (ICD-10-PCS; principal; 2023-12-24 18:15)
PROC: 6A550Z2 Pheresis of Platelets, Single (ICD-10-PCS; 2023-12-25)
DX: E83.42 Hypomagnesemia (principal); D61.810 Antineoplastic chemotherapy induced pancytopenia; C34.11 Malignant neoplasm of upper lobe, right bronchus or lung; C79.51 Secondary malignant neoplasm of bone; I48.92 Unspecified atrial flutter; C78.7 Secondary malignant neoplasm of liver and intrahepatic bile duct; C34.2 Malignant neoplasm of middle lobe, bronchus or lung; I45.2 Bifascicular block; T45.1X5A Adverse effect of antineoplastic and immunosuppressive drugs, initial encounter; E11.649 Type 2 diabetes mellitus with hypoglycemia without coma; D70.9 Neutropenia, unspecified; J44.9 Chronic obstructive pulmonary disease, unspecified; E11.51 Type 2 diabetes mellitus with diabetic peripheral angiopathy without gangrene; I48.91 Unspecified atrial fibrillation; Z79.4 Long term (current) use of insulin; I10 Essential (primary) hypertension; E78.5 Hyperlipidemia, unspecified; F17.210 Nicotine dependence, cigarettes, uncomplicated; M81.0 Age-related osteoporosis without current pathological fracture; F41.0 Panic disorder [episodic paroxysmal anxiety]; E87.6 Hypokalemia; R59.0 Localized enlarged lymph nodes; R50.81 Fever presenting with conditions classified elsewhere; R53.81 Other malaise; R03.1 Nonspecific low blood-pressure reading; Z17.0 Estrogen receptor positive status [ER+]; Z92.3 Personal history of irradiation; Z90.10 Acquired absence of unspecified breast and nipple; Z80.49 Family history of malignant neoplasm of other genital organs; Z85.3 Personal history of malignant neoplasm of breast; Z86.018 Personal history of other benign neoplasm; Z79.84 Long term (current) use of oral hypoglycemic drugs; Z79.01 Long term (current) use of anticoagulants; Z79.811 Long term (current) use of aromatase inhibitors; Z79.899 Other long term (current) drug therapy; Z91.048 Other nonmedicinal substance allergy status; Z88.5 Allergy status to narcotic agent
CPT/HCPCS: 36410; 36415; 71046; 76937; 80048; 80053; 81001; 83605; 83735; 84145; 85025; 86850; 86900; 86901; 87040; 87070; 87205; 87636; 93005; 96365; 96366; 99285

== ENCOUNTER 2024-01-16 11:57 | Day surgery (SDC) | payer MEDICARE, OTHER ==
[~2024-01-16 11:57] MED LIST changes: -LACTATED RINGERS 1,000 ML IV SCH; +Pre Op ABX Message 1 EACH MISC MISCELLANE ONE
[2024-01-16] MEDS ORDERED: LIDOCAINE 1% (10MG/ML) FOR IV START INTRADERMA PRN (12:51)
[2024-01-16] MEDS ORDERED: MIDAZOLAM 2 MG/2 ML VIAL IV PRN (12:51)
[2024-01-16] MEDS ORDERED: HYDROmorphone 0.5 MG/0.5 ML SYRINGE IVP PRN ×2 (12:51→17:47)
[2024-01-16 13:14] LABS: Glucose,Whole Blood 164 mg/dL (70-110)
[2024-01-16] MEDS: LACTATED RINGERS 1,000 ML IV SCH (13:14)
[2024-01-16] MEDS: ONDANSETRON 4 MG/2 ML VIAL IVP ONE (13:20)
[2024-01-16] MEDS: DEXAMETHASONE SOD PHOSPHATE 4 MG/ML 1 ML VIAL IV ONE (13:21)
--- NOTE | 2024-01-16 15:20 | P.GSHP ---
History of Present Illness H&P Date: 01/16/24 Chief Complaint: Lung cancer 73-year-old female here today for Port-A-Cath placement. Patient recently diagnosed with lung cancer. She is undergoing chemotherapy. Here today for for IV access for chemotherapy. She has not had a port previously. 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 murmur. hx breast cancer- radiation complete 04/2023. current spot on lung NO LEFT ARM use. 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 Pt has claustrophobia. Smoking Status: Current every day smoker - Past Family History Mother Family Medical History: Diabetes Mellitus, Hyperlipidemia, Hypertension Sister(s) Family Medical History: Cancer Additional Family Medical History / Comment(s): Cervical cancer. She is . Medications and Allergies Home Medications Medication Instructions Recorded Confirmed Type Anastrozole 1 mg PO DAILY 11/20/23 01/16/24 History ALPRAZolam [Xanax] 0.5 mg PO BID PRN 12/20/23 01/16/24 History Acetaminophen Tab [Tylenol] 650 mg PO Q6HR PRN tab 12/23/23 01/16/24 Rx Escitalopram [Lexapro] 20 mg PO DAILY 12/23/23 01/16/24 History Esomeprazole Magnesium [NexIUM] 40 mg PO DAILY 12/23/23 01/16/24 History Potassium Chloride ER [K-Dur 20] 20 meq PO DAILY 12/23/23 01/16/24 History Rosuvastatin Calcium [Crestor] 40 mg PO DAILY 12/23/23 01/16/24 History oxyBUTYnin chloride [Ditropan] 5 mg PO DAILY 12/23/23 01/16/24 History Enalapril [Vasotec] 20 mg PO DAILY #0 12/26/23 01/16/24 Rx Apixaban [Eliquis] 5 mg PO BID 01/10/24 01/16/24 History Furosemide [Lasix] 20 mg PO DAILY 01/10/24 01/16/24 History Insulin Degludec [Tresiba] 15 units SQ DIRECTED PRN 01/10/24 01/16/24 History hydrALAZINE HCL 25 mg PO BID 01/10/24 01/16/24 History Allergies Allergy/AdvReac Type Severity Reaction Status Date / Time dog dander Allergy Runny nose Verified 01/16/24 12:52 codeine AdvReac Chest Pain Verified 01/16/24 12:52 dogs,horses,mold Allergy Runny nose Uncoded 01/16/24 12:52 Surgical - Exam Vital Signs Temp Pulse Resp BP Pulse Ox 97.6 F 79 16 161/72 95 01/16/24 13:00 01/16/24 13:00 01/16/24 13:00 01/16/24 13:00 01/16/24 13:00 Physical exam: General: Well-developed, well-nourished HEENT: Normocephalic, sclerae nonicteric Abdomen: Nontender, nondistended Extremities: No edema Neuro: Alert and oriented Results - Labs Abnormal Lab Results - Last 24 Hours (Table) 01/16/24 Range/Units 13:09 POC Glucose (mg/dL) 164 H (70-110) mg/dL Assessment and Plan (1) Small cell lung cancer Narrative/Plan: 73-year-old female with right-sided lung cancer. Will proceed with Port-A-Cath placement at this time. Risks of bleeding, infection, DVT, pneumothorax, catheter malfunction, anesthesia related complications were discussed. The patient understands and wishes to proceed. Current Visit: No Status: Acute Priority: High Code(s): C34.90 - MALIGNANT NEOPLASM OF UNSP PART OF UNSP BRONCHUS OR LUNG SNOMED Code(s): 821177670
[2024-01-16] MEDS ORDERED: PHENYLEPHRINE-0.9% NACL SYG 1,000 MCG/10 ML SYRINGE ONE (16:45)
[2024-01-16] MEDS ORDERED: fentaNYL (PF) 50 MCG/ML 2 ML AMP ONE (16:45)
[2024-01-16] MEDS ORDERED: LIDOCAINE 1% INJ 10MG/ML (20 ML MDV) ONE (16:45)
[2024-01-16] MEDS ORDERED: ceFAZolin 1 GM/50 ML BAG (PMX) ONE (16:45)
[2024-01-16] MEDS ORDERED: PROPOFOL 10 MG/ML 20 ML VIAL IV ONE (16:45)
[2024-01-16] MEDS ORDERED: GLYCOPYRROLATE 0.2 MG/ML 2 ML VIAL ONE (16:45)
[2024-01-16] MEDS ORDERED: SUCCINYLCHOLINE CHLORIDE 200 MG/10 ML VIAL IV ONE (16:45)
[2024-01-16] MEDS: SODIUM CHLORIDE 0.9% 50 ML with ceFAZolin 2,000 MG IV ONE (16:49)
[2024-01-16] MEDS: HEPARIN SODIUM,PORCINE 100 UNIT/ML 5 ML VIAL IV ONE (17:31)
[2024-01-16] MEDS: LIDOCAINE 1% INJ 10MG/ML (20 ML MDV) SQ ONE ×2 (17:31)
[2024-01-16] MEDS ORDERED: traMADol 50 MG TAB PO PRN (17:47)
[2024-01-16] MEDS ORDERED: NALOXONE 0.4 MG/ML 1 ML VIAL IV PRN (17:47)
[2024-01-16] MEDS ORDERED: ACETAMINOPHEN TAB 325 MG TAB PO PRN (17:47)
--- NOTE | 2024-01-16 17:50 | P.OP ---
Date of Procedure: 01/16/24 Procedure(s) Performed: PREOPERATIVE DIAGNOSIS: Lung cancer POSTOPERATIVE DIAGNOSIS: Same PROCEDURE: Port-A-Cath placement with fluoroscopic and ultrasound guidance SURGEON: Dea EBL: Minimal ANESTHESIA: 2 cc COMPLICATIONS: None OPERATIVE PROCEDURE: Patient was brought and placed on the operative table in the supine position. The patient was placed under general anesthesia at that time. The chest and neck were prepped and draped in usual sterile fashion. The ultrasound probe was used to identify the location of the right internal jugular vein. The skin was localized with lidocaine. The Seldinger needle was advanced into the IJ under ultrasound guidance. The wire was advanced through the needle under fluoroscopic guidance into the superior vena cava. A port pocket was created in the right infraclavicular location. The catheter was tunneled from the wire entrance site to the port pocket. The port was then connected to the catheter. The dilator introducer was threaded over the guidewire. The guidewire and dilator were then removed. The catheter was advanced through the introducer and introducer was then removed. The tip was seen to be in the right atrial junction via fluoroscopy. A picture of the radiograph showing the tip of the catheter was taken. Port was flushed with both saline and a Hep-Lock solution. There was good flow both in and out of the port. The port was sutured in underlying tissues using 3-0 silk sutures. The subcutaneous tissues were reapproximated using 3-0 Vicryl sutures and the skin at both locations using 4-0 Monocryl sutures. Skin glue and sterile dressings then applied. DISPOSITION: Stable to recovery room
[2024-01-16 18:08] VITALS: TEMP 97.8
[2024-01-16 18:13] LABS: Glucose,Whole Blood 196 mg/dL (70-110)
[2024-01-16 18:44] VITALS: BP 158/70; PULSE 73; RESP 19
--- NOTE | 2024-01-16 18:51 | XR ---
EXAMINATION: XR chest 1V confirm line plcpr DATE AND TIME: 01/16/2024 6:14 PM CLINICAL INDICATION: PHH; Check [place] TECHNIQUE: Portable AP upright COMPARISON: 12/23/2023 FINDINGS: Since the prior study a right IJ central line has been placed with tip superimposed over the distal S VC. There is mild symmetric bilateral silhouetting of the pulmonary vasculature by a fine reticular patte rn of increased attenuation region in the periphery of the lower lung zones as septal lines. The find ings are consistent with mild interstitial phase pulmonary edema. The pattern obscuring visualization of the previously noted right suprahilar density. The pleural spaces are negative. The cardiac silhouette is not enlarged. Sternal sutures redemonstrated. The skeletal structures and soft tissues are negative for acute findings. IMPRESSION: Line placement CXR. Findings suggest interstitial phase pulmonary edema.
--- NOTE | 2024-01-16 20:15 | FL ---
EXAMINATION TYPE: FL guided central line placemt DATE OF EXAM: 01/16/2024 CLINICAL HISTORY: portacath placment TECHNIQUE: Fluoroscopy. COMPARISON: None. FINDINGS: Fluoroscopic guidance was provided during procedure performed by Dr. Malin. A total of 1. 7 seconds of fluoroscopic time was utilized during the procedure and 1 spot image was acquired. Tota l dose area product (DAP) in uGy*m?, mGy*cm? (or similar: 0.0520 Gy-cm-cm. IMPRESSION: As Above.
== END 2024-01-16 19:03 | disposition home or self-care (01) ==
LOC: OR 11:57
PROVIDERS: ATTEND Surgery
DX: C34.91 Malignant neoplasm of unspecified part of right bronchus or lung (principal); I48.92 Unspecified atrial flutter; J44.9 Chronic obstructive pulmonary disease, unspecified; E11.36 Type 2 diabetes mellitus with diabetic cataract; K21.9 Gastro-esophageal reflux disease without esophagitis; I10 Essential (primary) hypertension; E78.5 Hyperlipidemia, unspecified; M19.90 Unspecified osteoarthritis, unspecified site; F17.200 Nicotine dependence, unspecified, uncomplicated; M81.0 Age-related osteoporosis without current pathological fracture; Z86.018 Personal history of other benign neoplasm; Z95.5 Presence of coronary angioplasty implant and graft; Z90.49 Acquired absence of other specified parts of digestive tract; Z98.890 Other specified postprocedural states; Z82.49 Family history of ischemic heart disease and other diseases of the circulatory system; Z83.3 Family history of diabetes mellitus; Z79.811 Long term (current) use of aromatase inhibitors; Z79.01 Long term (current) use of anticoagulants; Z79.899 Other long term (current) drug therapy; Z79.4 Long term (current) use of insulin; Z88.5 Allergy status to narcotic agent
CPT/HCPCS: 77001; 36561; C1788; J0330; J1642; J1100; J2405; J0690 ×2; J2001; J3010; J2704; J2371

== ENCOUNTER → 2024-01-27 | Outpatient (CLI) | payer MEDICARE, OTHER ==
[2024-01-27 12:07] LABS: African American GFR (CKD) 66 (>60 ml/min/1.73 sqM); Blood Urea Nitrogen 20 mg/dL (7-17); Non-African American GFR(CKD) 57 (>60 ml/min/1.73 sqM)
--- NOTE | 2024-01-27 14:13 | CT ---
EXAMINATION TYPE: CT ChestAbdPelvis w con DATE OF EXAM: 01/27/2024 COMPARISON: 10/08/2023 HISTORY: 73-year-old female lung cancer TECHNIQUE: Contiguous axial scanning of the chest, abdomen, and pelvis performed with IV Contrast, pa tient injected with 80ml mL of Isovue 300. Delayed images through the kidneys were obtained. Coronal/ sagittal reconstructions performed. CT DLP: 1642 mGycm Automated exposure control for dose reduction was used. FINDINGS: Chest: Right anterior chest wall injection port with catheter tip at the upper SVC. Retained epicardial pace r leads. Median sternotomy wires with post-CABG clips. Post lumpectomy changes left breast. The associated seroma has diminished. Heart is upper limits of normal size without pericardial effusion. Moderate atherosclerotic arch calcifications with conventional branching anatomy. The previous lower right paratracheal nodes are smaller at 1.4 cm versus 2.6 cm, previously. Mild right hilar soft tissue remains with resolution of previous right hilar mass. Scattered bilateral reticular changes especially in the mid and lower lungs as well as mild emphysema . No new consolidation or pleural effusion. ABDOMEN: Innumerable new hypodense hepatic lesions measuring up to 1.6 cm. As these were not well seen previou sly, consider treated metastatic lesions in the setting of previously occult disease or after an inte rval progression. Portal venous system is patent. No biliary ductal dilatation. Gallbladder surgicall y absent. Similar diffuse thickening of the bilateral adrenal glands though slightly diminished in the interval . Bilateral renal cysts measuring up to 3.0 cm. Spleen and pancreas within normal limits. Aneurysmal mid and lower abdominal aorta. There are some associated saccular components to the aneury sms. Fusiform dilatation measures up to 4.4 cm. However, including the saccular components, aneurysms measure up to 5.5 cm. No dilated small bowel, free fluid, or free air. No mesenteric or retroperitoneal lymphadenopathy see n. There is moderate stool in the left side of the colon and rectum with sigmoid diverticulosis. No jeffrey colonic inflammatory change. Pelvis: Bladder not distended. Uterus and left ovary is visualized. Right ovary is not clearly delineated. No abnormal fluid collection in the pelvis or pelvic lymphadenopathy. Generalized anasarca change. Bones: Mild degenerative change at the hips. Patient status post L5-S1 interbody fusion. Moderate degenerati ve disc disease lower thoracic spine. Degenerative grade 1 retrolisthesis L1-L2. No osseous destructi ve process seen. IMPRESSION: 1. SIGNIFICANT IMPROVEMENT IN THE PREVIOUS RIGHT HILAR MASS. MILD RESIDUAL DENSITY REMAINS HERE, LIKE LY POSTTREATMENT CHANGE. THE PREVIOUS RIGHT PARATRACHEAL ADENOPATHY HAS ALSO IMPROVED NOW MEASURING 1 .4 CM VERSUS 2.6 CM, PREVIOUSLY. 2. Innumerable hypodense hepatic lesions are now demonstrated measuring up to 1.6 cm. Consider treate d metastatic lesions in the setting of previously occult disease or treatment change after an interva l progression. Ongoing follow-up recommended. 3. Soft tissue thickening of the adrenal glands shows slight improvement suggesting posttreatment jono nge here as well. 4. Fusiform aneurysm of the abdominal aorta measuring up to 4.4 cm. However, there are superimposed s cattered saccular aneurysms as well in the mid and distal abdominal aorta for a total measurement of 2 5.5 cm (versus 4.1 cm on 11/23/2016 and 2.9 cm back in 2014). Recommend vascular surgery evaluation.
== END | disposition home or self-care (01) ==
LOC: RADCTMAIN 11:12
PROVIDERS: ATTEND Internal Medicine
DX: K76.89 Other specified diseases of liver (principal); E27.8 Other specified disorders of adrenal gland; C34.91 Malignant neoplasm of unspecified part of right bronchus or lung; I71.40 Abdominal aortic aneurysm, without rupture, unspecified; C50.412 Malignant neoplasm of upper-outer quadrant of left female breast; I10 Essential (primary) hypertension; E11.9 Type 2 diabetes mellitus without complications; J44.9 Chronic obstructive pulmonary disease, unspecified; Z71.3 Dietary counseling and surveillance
CPT/HCPCS: 82565; 84520; 71260; 74177; 36415; Q9967

== ENCOUNTER → 2024-02-06 | Outpatient (CLI) | payer MEDICARE, OTHER ==
--- NOTE | 2024-02-06 13:21 | P.PN ---
Subjective Progress Note Date: 02/06/24 02-06-24 Subjectiv Principal diagnosis: left breast stage IA left breast [id number]+OH+Her2-G1, invasive ductal cancer History of Present Illness H&P Date: 10-04-23 Chief Complaint: left breast invasive ductal cancer, 2022 Marilyn is a 73 year old white female seen in consultation for DR. Barajas regarding a biopsy proven left breast invasive ductal cancer. She had a bilateral mammogram on 12-18-22 which led to a left breast diagnostic mammogram ultrasound. Nothing of concern was seen on the right side. A biopsy was done on 12-28-22 which was a G1 invasive ductal cancer. ER+Pr+Her2-. She had felt a lump in her left breast several months ago. The mammogram was a routine screening mammogram. She stated she also noted that her nipple was pulling and on the left side for several months. She had not had a mammogram since 2018. She had never had any surgery on her breast. Had not had any recent trauma or infection in her breast. The patient on 02-26-23 underwent a left breast sentinel node biopsy and central lumpectomy. Postoperatively she has been seen by radiation oncology and completed treatment with them on . The patient is not complaining of any new lumps masses or nodules of concern in either breast. The patient does state she hasn't slept for 2 nights and has a sinusitis at this time. She has been coughing and her sinuses have been draining. note medical oncology reviewed: 01-10-24 : patient started on anastrazole and after a DEXA scan Fosamax and vitamin D; she recently stopped her Fosamax but will discuss this with medical oncology oncotype: 17 She completed 15 fractions of radiation on 05-07-23 CT of chest on 10-08-23 revealed a 4.8 cm right lung lesion PET scan consistent with liver and bone mets ; bronchoscopy with biopsy of the right upper lobe mass consistent with small cell carcinoma chemotherpy: carboplatin/etoposide/atezolizumab continue annestrazole cycle 3 of chemotherpay scheduled for 01-22-24; repeat staging after the above bilateral mammogram 12-20-23 BIRAD 2 The patient is complaining of fatigue. She is not complaining of any new lumps masses or nodules of concern in either breast. She is being treated for small cell lung cancer and has had good results with the chemotherapy. Caffeine: 3 cups/day nicotine: 1/2 PPD since 19 chocolate: none BCP: 4 years in the 1970's Family History: maternal aunt: lung cancer paternal aunt: lymphoma sister: cervical father: melanoma maternal cousin: leukemia maternal cousin: lymphoma Hormonal History: menarche: 18 M1, breast fed: no, age at firts : 21 menopause: 53 Surgical History: myxoma back surgery carotid artery surgery gallbladder stints left leg Medical History: HTN anxiety diabetes Social History: Nicotine: as above alcohol: occasional, used to drink on weekends drugs: none - Constitutional Constitutional: Denies chills, Denies fever - EENT Eyes: denies blurred vision, denies pain Ears: bilateral: decreased hearing, tinnitus Ears, nose, mouth and throat: Denies headache, Denies sore throat - Breasts Breasts: bilateral: as per HPI - Cardiovascular Cardiovascular: Reports as per HPI - Respiratory Respiratory: Reports cough - Gastrointestinal Gastrointestinal: Denies abdominal pain, Denies diarrhea, Denies nausea, Denies vomiting - Genitourinary (Female) Comment: UTI Genitourinary: Denies dysuria, Denies hematuria - Menstruation Menstruation: Reports postmenopausal - Musculoskeletal Musculoskeletal: Reports myalgias - Integumentary Integumentary: Denies pruritus, Denies rash - Neurological Neurological: Denies numbness, Denies weakness - Psychiatric Psychiatric: Reports anxiety, Reports depression - Endocrine Endocrine: Reports weight change, Denies fatigue - Hematologic/Lymphatic Comment: on Eliquis since heart surgery for myxoma 2007 - Allergic/Immunologic Allergic/Immunologic: Reports seasonal allergies Past Medical History Past Medical History: COPD, Diabetes Mellitus, GERD/Reflux, Hyperlipidemia, Hypertension, Osteoarthritis (OA), Vascular Disorder Additional Past Medical History / Comment(s): Carotid artery disease bilateral, diabetes mellitus, hypertension and hyperlipidemia, osteoarthritis, 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 History of Any Multi-Drug Resistant Organisms: None Reported Past Surgical History: Appendectomy, Back Surgery, Cholecystectomy, Heart Catheterization, Orthopedic Surgery Additional Past Surgical History / Comment(s): Resection of an atrial myxoma/open heart for removal of tumor on the heart 2007, arthroscopic bilateral knees, left carotid endarterectomy 2014, cyst removed from left ovary, devyn cataracts Past Anesthesia/Blood Transfusion Reactions: No Reported Reaction Past Psychological History: Anxiety, Panic Disorder Additional Psychological History / Comment(s): claustrophobic Smoking Status: Current every day smoker Past Alcohol Use History: Rare Additional Past Alcohol Use History / Comment(s): smokes 1/2 PPD, smoked since age 19 Past Drug Use History: None Reported - Past Family History Mother Family Medical History: Diabetes Mellitus, Hyperlipidemia, Hypertension Sister(s) Family Medical History: Cancer Medications and Allergies Home Medications Medication Instructions Recorded Confirmed Type Esomeprazole Magnesium [NexIUM] 40 mg PO DAILY 03/23/14 01/04/23 History Ergocalciferol [Vitamin D2 50,000 unit PO Q14D 03/26/18 01/04/23 History (DRISDOL)] Escitalopram [Lexapro] 10 mg PO HS 03/26/18 01/04/23 History Ipratropium/Albuterol Sulfate 2 puff INHALATION RT-QID PRN 03/26/18 01/04/23 History [Combivent Respimat Inhaler] Pioglitazone [Actos] 15 mg PO DAILY 01/19/19 01/04/23 History Apixaban [Eliquis] 5 mg PO BID #60 tab 07/28/19 01/04/23 Rx Atorvastatin [Lipitor] 40 mg PO HS #30 tab 07/28/19 01/04/23 Rx Enalapril [Vasotec] 20 mg PO BID 12/19/22 01/04/23 History Furosemide [Lasix] 20 mg PO DAILY 12/19/22 01/04/23 History Insulin Degludec [Tresiba] 15 units SQ HS 12/19/22 01/04/23 History Oxybutynin Chloride [Ditropan XL] 5 mg PO DAILY 12/19/22 01/04/23 History Semaglutide [Ozempic] 2 mg SQ DAILY 12/19/22 01/04/23 History Spironolactone 25 mg PO DAILY 12/19/22 01/04/23 History hydrALAZINE HCL [Apresoline] 50 mg PO BID 12/19/22 01/04/23 History Allergies Allergy/AdvReac Type Severity Reaction Status Date / Time codeine Allergy Chest Pain Verified 01/04/23 12:04 dogs,horses,mold Allergy RUNNY NOSE Uncoded 01/04/23 12:04 Objective - Constitutional General appearance: Present: cooperative - EENT Eyes: Present: EOMI ENT: Present: hearing grossly normal - Neck Neck: Present: normal ROM - Respiratory Respiratory: bilateral: CTA - Cardiovascular Rhythm: regular Heart sounds: normal: S1, S2 - Gastrointestinal General gastrointestinal: Present: soft - Integumentary Integumentary: Present: normal turgor - Musculoskeletal Musculoskeletal: Present: gait normal - Psychiatric Psychiatric: Present: A&O x's 3, appropriate affect, intact judgment & insight - Additional findings Additional findings: Beast Exam: BRA: sports medium inspection: bilateral grade 2 ptosis, left breast postsurgical and radiation changes Palpation: Right breast: Multi-positional exam fibrocystic changes no dominant masses or nodules of concern Right axilla: No adenopathy of concern Left breast: well healed scar from central lumpectomy, no dominant masses or nodules of concern, postsurgical and radiation changes Left axilla: No adenopathy of concern Assessment and Plan Assessment: Impression: myxoma back surgery carotid artery surgery gallbladder stints left leg Hypertension Anxiety Diabetes Stage I left breast invasive ductal carcinoma; status post central lumpectomy and radiation therapy, no evidence of local recurrence at this time Complaining of coughing/sinus drainage/vent able to sleep small cell carcinoma right lung/mets treatment with chemotherapy bilateral mammogram 12-20-23 BIRAD 2 Plan: Bilateral mammogram December 2024 Follow up here in 6 months Another appointment with medical oncology to follow regarding hormone therapy and small cell cancer lung CC: DR. Barajas
[2024-02-06 13:57] VITALS: BP 157/71; PULSE 75; RESP 16; TEMP 97.9
== END ==
LOC: WWCWWP 13:02
PROVIDERS: ATTEND Surgery
DX: D64.81 Anemia due to antineoplastic chemotherapy (principal); C50.912 Malignant neoplasm of unspecified site of left female breast; F17.210 Nicotine dependence, cigarettes, uncomplicated; D21.9 Benign neoplasm of connective and other soft tissue, unspecified; I10 Essential (primary) hypertension; F41.9 Anxiety disorder, unspecified; E11.36 Type 2 diabetes mellitus with diabetic cataract; E11.51 Type 2 diabetes mellitus with diabetic peripheral angiopathy without gangrene; Z17.0 Estrogen receptor positive status [ER+]; Z92.3 Personal history of irradiation; Z98.890 Other specified postprocedural states; Z48.817 Encounter for surgical aftercare following surgery on the skin and subcutaneous tissue; Z95.820 Peripheral vascular angioplasty status with implants and grafts; Z79.84 Long term (current) use of oral hypoglycemic drugs; Z79.01 Long term (current) use of anticoagulants; Z79.4 Long term (current) use of insulin; Z79.85 Long-term (current) use of injectable non-insulin antidiabetic drugs; Z90.721 Acquired absence of ovaries, unilateral; Z91.09 Other allergy status, other than to drugs and biological substances; Z88.5 Allergy status to narcotic agent; Z79.899 Other long term (current) drug therapy
CPT/HCPCS: 86850; 86900; 86901; 86920

== ENCOUNTER → 2024-02-25 | Outpatient (CLI) | payer MEDICARE, OTHER | END | disposition home or self-care (01) | LOC: LABWHC1 09:42 | PROVIDERS: ATTEND Family Medicine | DX: Z53.9 Procedure and treatment not carried out, unspecified reason (principal) ==

== ENCOUNTER → 2024-04-27 | Outpatient (CLI) | payer MEDICARE, OTHER ==
[2024-04-27 11:21] LABS: African American GFR (CKD) 56 (>60 ml/min/1.73 sqM); Blood Urea Nitrogen 16 mg/dL (7-17); Non-African American GFR(CKD) 49 (>60 ml/min/1.73 sqM)
--- NOTE | 2024-04-27 12:14 | CT ---
EXAMINATION TYPE: CT brain wo/w con CT DLP: Combined 3662 mGycm, Automated exposure control for dose reduction was used. DATE OF EXAM: 04/27/2024 11:56 AM COMPARISON: CT brain 12/16/2023. CLINICAL INDICATION:Female, 73 years old with history of C34.91 LUNG; PHH, F/U on metastatic lung and breast Ca. TECHNIQUE: Axial CT images of the brain were obtained followed by contrast enhanced axial images of t he brain with 100 cc of ISO-view 370 IV contrast. One or more CT dose reduction strategies were utili zed during this examination. Coronal and sagittal reformats reviewed. FINDINGS: Extra-axial spaces: No abnormal extra-axial fluid collections. Ventricular system: Within normal limits Cerebral parenchyma: No acute intraparenchymal hemorrhage or mass effect. Prior injury to the right t halamus again suggested. The castillo-white junction is well differentiated. Hypoattenuating regions are identified within the periventricular white matter bilaterally again. No abnormal enhancement is seen after the administration of intravenous contrast. Cerebellum: New 1.2 cm enhancing lesion within the central cerebellum at midline (series 5, image 15) . Mass effect: No evidence of midline shift. Intracranial vasculature: Atherosclerotic calcifications of the intracranial vessels. Soft tissues: Normal. Calvarium/osseous structures: No depressed skull fracture. No aggressive osseous lesion. Paranasal sinuses and mastoid air cells: Clear. Visualized orbits: Bilateral aphakia IMPRESSION: 1. New 1.2 cm enhancing lesion within the central cerebellum concerning for metastasis. Consider fur ther evaluation with MRI brain. 2. Nonspecific white matter changes. 3. Prior remote lacunar injury to the right thalamus again suggested.
--- NOTE | 2024-04-27 14:32 | CT ---
EXAMINATION TYPE: CT ChestAbdPelvis w con CT DLP: Combined 3662 mGycm, Automated exposure control for dose reduction was used. DATE OF EXAM: 04/27/2024 11:57 AM COMPARISON: CT chest abdomen and pelvis 01/27/2024, CT chest 10/08/2023, 07/11/2019. CLINICAL INDICATION:Female, 73 years old with history of C34.91 LUNG; PHH, F/U on metastatic lung and breast Ca. Technique: Multiple axial images of the chest, abdomen, and pelvis were obtained following the intrav enous administration of 100 mL Isovue-300. Two-dimensional coronal and sagittal reconstructions were obtained. Findings: CHEST: LUNGS/ PLEURA: No pleural effusion or pneumothorax. Scattered subpleural peripheral reticular opaciti es redemonstrated. Mild right hilar soft tissue remains with resolution of previously seen right delmar r mass. Mild emphysematous changes. No new focal consolidation. No new suspicious pulmonary nodule or mass. AIRWAY: Patent and unremarkable.. HEART: Mildly prominent in size. Post-CABG changes. Retained epicardial pacer leads. No pericardial e ffusion. MEDIASTINUM: Marginal decrease in lower right paratracheal lymph to measure 1.2 cm versus 1.4 cm prev iously. No new lymphadenopathy. VASCULATURE: No aortic aneurysm. Right anterior chest wall injection port with distal tip terminatin g at the superior cavoatrial junction. Moderate atherosclerotic calcifications of the aorta and its b ranches. MUSCULOSKELETAL: No acute osseous abnormalities. Median sternotomy wires. No aggressive osseous lesio n. SOFT TISSUES/LYMPH NODES: Postlumpectomy changes of the left breast redemonstrated. The associated se craig is stable to marginally decreased in size. No axillary lymphadenopathy. LOWER NECK: No significant findings. ABDOMEN: ABDOMEN LIVER: Less conspicuous appearance of multiple small hypodense lesions throughout the liver when comp ared to prior exam. GALLBLADDER AND BILE DUCTS: The gallbladder is surgically absent. No biliary duct dilatation. PANCREAS: Unremarkable. SPLEEN: Unremarkable. ADRENAL GLANDS: Similar diffuse thickening of both adrenal glands. KIDNEYS AND URETERS: No evidence of hydronephrosis or renal calculus. The kidneys enhance symmetrical ly. Stable bilateral renal cysts. Contrast is demonstrated within both collecting systems on the manny yed phase. PELVIS BLADDER: Unremarkable REPRODUCTIVE: Unremarkable. ABDOMEN & PELVIS STOMACH AND BOWEL: No focal bowel wall thickening. Distal colonic diverticulosis without evidence for acute diverticulitis. No evidence of bowel obstruction. PERITONEUM: No evidence of pneumoperitoneum or free fluid. VASCULATURE: There is again aneurysmal dilatation of the mid and lower abdominal aorta. There are ass ociated saccular components of the aneurysms. Fusiform dilatation measures up to 4.2 cm, previously r eported 4.4 cm cyst. The saccular component measures up to 5.2 cm, previously 5.5 cm. There is a mura l thrombus identified within both saccular components. MUSCULOSKELETAL: No acute osseous abnormalities. Mild degenerative changes of the hips. Status post L 5-S1 interbody fusion. Moderate degenerative disc disease of the visualized spine. Degenerative grade 1 retrolisthesis of L1 on L2. LYMPH NODES: No gross evidence for lymphadenopathy. SOFT TISSUE/ABDOMINAL WALL: Small fat filled umbilical hernia. Mild generalized anasarca. IMPRESSION: 1. Continued improvement with residual opacity seen within the right hilum region likely representin g posttreatment change. No new pulmonary nodules. Slight decrease in size of paratracheal adenopathy measuring 1.2 cm, previously 1.4 cm. 2. Less conspicuous appearance of multiple hypodense hepatic lesions from prior examination suggesti ng continued improvement. Attention on follow-up exam. 3. Similar thickening of both adrenal glands. 4. Similar bilobed fusiform infrarenal abdominal aortic aneurysm with saccular components. Vascular surgical consultation is recommended if not already performed.
== END | disposition home or self-care (01) ==
LOC: RADCTMAIN 10:39
PROVIDERS: ATTEND Internal Medicine
DX: C34.91 Malignant neoplasm of unspecified part of right bronchus or lung (principal); C50.412 Malignant neoplasm of upper-outer quadrant of left female breast; J44.9 Chronic obstructive pulmonary disease, unspecified; G93.89 Other specified disorders of brain; E11.9 Type 2 diabetes mellitus without complications; I71.43 Infrarenal abdominal aortic aneurysm, without rupture
CPT/HCPCS: 82565; 84520; 70470; 71260; 74177; 36415; J1642; Q9967

== ENCOUNTER 2024-05-05 09:18 | Observation (INO) | payer MEDICARE, OTHER ==
--- NOTE | 2024-05-05 09:37 | ED ---
Nausea/Vomiting/Diarrhea HPI - General Chief complaint: Nausea/Vomiting/Diarrhea Stated complaint: Hypertenison Time Seen by Provider: 05/05/24 09:35 Source: patient, family, RN notes reviewed Mode of arrival: wheelchair Limitations: no limitations - History of Present Illness Initial comments: 73-year-old female presented to the ER with a chief complaint of nausea and vomiting. Patient was at [facility] this morning for chemotherapy and was found to have an elevated blood pressure of 200/80 for approximately one hour. Patient was sent here by Dr. De Jesus for evaluation of hypertension and nausea. Patient does take antihypertensive medications and states she took them around 7 AM. She is currently undergoing chemotherapy and scheduled for radiation treatment beginning in May for brain cancer. Patient does have a past medical history significant of lung and breast cancer which have since resolved. She denies any chest pain, shortness of breath, abdominal pain, urinary complaints or peripheral edema. She does report an episode of diarrhea yesterday. Patient has not taken anything for her symptoms at this time. Patient is reporting she feels "tired and fatigued". Denies any fevers or chills. - Related Data Home Medications Medication Instructions Recorded Confirmed Anastrozole 1 mg PO DAILY 11/20/23 05/05/24 ALPRAZolam [Xanax] 0.5 mg PO BID PRN 12/20/23 05/05/24 Escitalopram [Lexapro] 20 mg PO DAILY 12/23/23 05/05/24 Esomeprazole Magnesium [NexIUM] 40 mg PO DAILY 12/23/23 05/05/24 Potassium Chloride ER [K-Dur 20] 20 meq PO BID 12/23/23 05/05/24 Rosuvastatin Calcium [Crestor] 40 mg PO DAILY 12/23/23 05/05/24 oxyBUTYnin chloride [Ditropan] 5 mg PO DAILY 12/23/23 05/05/24 Apixaban [Eliquis] 5 mg PO BID 01/10/24 05/05/24 Furosemide [Lasix] 20 mg PO BID 01/10/24 05/05/24 hydrALAZINE HCL 25 mg PO BID 01/10/24 05/05/24 Dapagliflozin Propanediol [Farxiga] 5 mg PO DAILY 05/05/24 05/05/24 Enalapril [Vasotec] 20 mg PO BID 05/05/24 05/05/24 Insulin Degludec [Tresiba 15 - 20 units SQ HS 05/05/24 05/05/24 Flextouch U-100 Pen] dexAMETHasone [Decadron] See Taper PO DIRECTED 05/05/24 05/05/24 Previous Rx's Medication Instructions Recorded Acetaminophen Tab [Tylenol] 650 mg PO Q6HR PRN tab 12/23/23 Allergies Allergy/AdvReac Type Severity Reaction Status Date / Time dog dander Allergy Runny nose Verified 05/05/24 11:53 codeine AdvReac Chest Pain Verified 05/05/24 11:53 empagliflozin AdvReac severe UTI Verified 05/05/24 11:53 [From Jardiance] metformin AdvReac Diarrhea Verified 05/05/24 11:53 pioglitazone [From Actos] AdvReac denies Verified 05/05/24 11:53 allergy semaglutide [From Ozempic] AdvReac denies Verified 05/05/24 11:53 allergy sitagliptin [From Januvia] AdvReac severe UTI Verified 05/05/24 11:53 dogs,horses,mold Allergy Runny nose Uncoded 05/05/24 09:25 Review of Systems ROS Statement: Those systems with pertinent positive or pertinent negative responses have been documented in the HPI. ROS Other: All systems not noted in ROS Statement are negative. 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 murmur. hx breast cancer- radiation complete 04/2023. current spot on lung NO LEFT ARM use. 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 Pt has claustrophobia. Past Psychological History: Anxiety, Panic Disorder Smoking Status: Current every day smoker, Current some day smoker, Former smoker Past Alcohol Use History: None Reported Past Drug Use History: None Reported - Past Family History Mother Family Medical History: Diabetes Mellitus, Hyperlipidemia, Hypertension Sister(s) Family Medical History: Cancer Additional Family Medical History / Comment(s): Cervical cancer. She is . General Exam Limitations: no limitations General appearance: alert, in no apparent distress Respiratory exam: Present: normal lung sounds bilaterally. Absent: respiratory distress, wheezes, rales, rhonchi, stridor Cardiovascular Exam: Present: regular rate, normal rhythm, normal heart sounds. Absent: systolic murmur, diastolic murmur, rubs, gallop, clicks Extremities exam: Present: normal inspection, full ROM, normal capillary refill. Absent: tenderness, pedal edema, joint swelling, calf tenderness Neurological exam: Present: alert, oriented X3, CN II-XII intact Skin exam: Present: warm, dry, intact, normal color. Absent: rash Course Vital Signs 05/05/24 05/05/24 05/05/24 09:21 10:03 11:34 Temperature 98.0 F Pulse Rate 76 71 73 Respiratory 18 18 18 Rate Blood Pressure 184/90 209/90 210/89 O2 Sat by Pulse 96 97 95 Oximetry 05/05/24 05/05/24 12:25 13:54 Temperature Pulse Rate 71 66 Respiratory 18 18 Rate Blood Pressure 191/96 166/87 O2 Sat by Pulse 96 92 L Oximetry - Reevaluation(s) Reevaluation #1: 05/05/24 11:55 Case discussed with Sounds physician, Dr. Parson accepts admission Medical Decision Making - Medical Decision Making Was pt. sent in by a medical professional or institution (, PA, TENTER FRAME OPERATOR, urgent care, hospital, or correction...) When possible be specific @ -Patient sent by for evaluation of hypertension. Did you speak to anyone other than the patient for history (EMS, parent, family, police, friend...)? What history was obtained from this source @ -No Did you review nursing and triage notes (agree or disagree)? Why? @ -I reviewed and agree with nursing and triage notes Were old charts reviewed (outside hosp., previous admission, EMS record, old EKG, old radiological studies, urgent care reports/EKG's, correction records)? Report findings @ -Yes I reviewed EKG and laboratory studies from 12-22-2023. Differential Diagnosis (chest pain, altered mental status, abdominal pain women, abdominal pain men, vaginal bleeding, weakness, fever, dyspnea, syncope, headache, dizziness, GI bleed, back pain, seizure, CVA, palpatations, mental health, musculoskeletal)? @ -Differential Weakness: Hypoglycemia, shock, sepsis, hyponatremia, anemia, infection, IL, ETOH, adverse medicine reaction, overdose, stroke, this is not meant to be an all-inclusive list. EKG interpreted by me (3pts min.). @ -As above X-rays interpreted by me (1pt min.). @ -Chest x-ray showing a 1 cm right lower lobe pulmonary nodule. No acute infiltrate. CT interpreted by me (1pt min.). @ -None done U/S interpreted by me (1pt. min.). @ -None done What testing was considered but not performed or refused? (CT, X-rays, U/S, labs)? Why? @ -Noner What meds were considered but not given or refused? Why? @ -None Did you discuss the management of the patient with other professionals (professionals i.e. , PA, TENTER FRAME OPERATOR, lab, RT, psych nurse, community mental health social worker, habilitation worker, teacher, loan servicing officer, case operator)? Give summary @ -Yes, case discussed with sound physician, Dr. Parson, who accepts admission. He would not like antibiotics started for UTI at this time. Was smoking cessation discussed for >3mins.? @ -No Was critical care preformed (if so, how long)? @ -No Were there social determinants of health that impacted care today? How? (Homelessness, low income, unemployed, alcoholism, drug addiction, transportation, low edu. Level, literacy, decrease access to med. care, custodial, rehab)? @ -No Was there de-escalation of care discussed even if they declined (Discuss DNR or withdrawal of care, Hospice)? DNR status @ -No What co-morbidities impacted this encounter? (DM, HTN, Smoking, COPD, CAD, Cancer, CVA, ARF, Chemo, Hep., AIDS, mental health diagnosis, sleep apnea, morbid obesity)? @ -Cancer, diabetes, hypertension, atrial flutter Was patient admitted / discharged? Hospital course, mention meds given and rou te, prescriptions, significant lab abnormalities, going to OR and other pertinent info. @ -Admitted. 73-year-old female presenting to the ER from [facility] instructed by Dr. De Jesus for evaluation of hypertension. History and physical exam completed. Vitals upon arrival remarkable for temperature 98.0, blood pressure 184/90, heart rate 76, oxygen saturation 96% on room air. Patient in no signs of acute distress and nontoxic-appearing. Exam unremarkable. Laboratory studies obtained remarkable for an AMADOR showing a BUN of 24 and creatinine 1.18. GFR 47. Urine analysis concerning of infection with positive nitrates and 31 urine WBCs. Viral swabs negative. Chest x-ray interpreted by me negative for acute infiltrate. There is a 1 cm right lower lobe pulmonary nodule. Patient received 500 mL of IV fluids and Zofran in the ER. Patient also received clonidine 0.1 mg for blood pressure control. Due to patient's immunosuppression and concern of UTI admission considered. I discussed this case with Sound physician, , accepts admission. He would not like antibiotics started for possible UTI at this time as patient is currently asymptomatic. Patient agreeable for admission. Patient admitted in stable condition for further treatment. Case discussed with Ed attending, Dr. Feliz. Undiagnosed new problem with uncertain prognosis? @ -No Drug Therapy requiring intensive monitoring for toxicity (Heparin, Nitro, Insulin, Cardizem)? @ -No Were any procedures done? @ -No Diagnosis/symptom? @ -Hypertensive urgency/ r/o UTI Acute, or Chronic, or Acute on Chronic? @ -Acute Uncomplicated (without systemic symptoms) or Complicated (systemic symptoms)? @ -Complicated Side effects of treatment? @ -No Exacerbation, Progression, or Severe Exacerbation? @ -No Poses a threat to life or bodily function? How? (Chest pain, USA, IL, pneumonia, PE, COPD, DKA, ARF, appy, cholecystitis, CVA, Diverticulitis, Homicidal, Suicidal, threat to staff... and all critical care pts) @ -Yes, patient has a history of brain cancer and is currently receiving outpatient treatment. - Lab Data Result diagrams: 05/05/24 09:48 05/05/24 09:48 Lab Results 05/05/24 05/05/24 05/05/24 Range/Units 09:48 09:48 09:48 WBC 7.1 (3.8-10.6) k/uL RBC 4.42 (3.80-5.40) m/uL Hgb 14.5 (11.4-16.0) gm/dL Hct 44.0 (34.0-46.0) % MCV 99.5 (80.0-100.0) fL MCH 32.8 (25.0-35.0) pg MCHC 33.0 (31.0-37.0) g/dL RDW 13.6 (11.5-15.5) % Plt Count 211 (150-450) k/uL MPV 6.6 Neutrophils % 83 % Lymphocytes % 11 % Monocytes % 4 % Eosinophils % 1 % Basophils % 0 % Neutrophils # 5.9 (1.3-7.7) k/uL Lymphocytes # 0.8 L (1.0-4.8) k/uL Monocytes # 0.3 (0-1.0) k/uL Eosinophils # 0.1 (0-0.7) k/uL Basophils # 0.0 (0-0.2) k/uL PT (10.0-12.5) sec INR (<1.2) APTT (22.0-30.0) sec Sodium 139 (137-145) mmol/L Potassium 3.2 L (3.5-5.1) mmol/L Chloride 104 (98-107) mmol/L Carbon Dioxide 27 (22-30) mmol/L Anion Gap 8 mmol/L BUN 24 H (7-17) mg/dL Creatinine 1.18 H (0.52-1.04) mg/dL Est GFR (CKD-EPI)AfAm 54 (>60 ml/min/1.73 sqM) Est GFR (CKD-EPI)NonAf 47 (>60 ml/min/1.73 sqM) Glucose 193 H (74-99) mg/dL Plasma Lactic Acid [place] (0.7-2.0) mmol/L Calcium 9.8 (8.4-10.2) mg/dL Magnesium 1.8 (1.6-2.3) mg/dL Total Bilirubin 1.0 (0.2-1.3) mg/dL AST 31 (14-36) U/L ALT 20 (4-34) U/L Alkaline Phosphatase 91 (38-126) U/L Troponin I (0.000-0.034) ng/mL Total Protein 7.2 (6.3-8.2) g/dL Albumin 4.2 (3.5-5.0) g/dL Urine Color Colorless Urine Appearance Clear (Clear) Urine pH 5.5 (5.0-8.0) Ur Specific [place] 1.012 (1.001-1.035) Urine Protein 2+ H (Negative) Urine Glucose (UA) 3+ H (Negative) Urine Ketones Negative (Negative) Urine Blood Trace H (Negative) Urine Nitrite Positive H (Negative) Urine Bilirubin Negative (Negative) Urine Urobilinogen <2.0 (<2.0) mg/dL Ur Leukocyte Esterase Small H (Negative) Urine RBC <1 (0-5) /hpf Urine WBC 31 H (0-5) /hpf Ur Squamous Epith Cells 1 (0-4) /hpf Urine Bacteria Many H (None) /hpf Hyaline Casts 7 H (0-2) /lpf Urine Mucus Rare H (None) /hpf Influenza Type A (PCR) (Not Detectd) Influenza Type B (PCR) (Not Detectd) RSV (PCR) (Not Detectd) SARS-CoV-2 (PCR) (Not Detectd) 05/05/24 05/05/24 05/05/24 Range/Units 09:48 09:48 09:48 WBC (3.8-10.6) k/uL RBC (3.80-5.40) m/uL Hgb (11.4-16.0) gm/dL Hct (34.0-46.0) % MCV (80.0-100.0) fL MCH (25.0-35.0) pg MCHC (31.0-37.0) g/dL RDW (11.5-15.5) % Plt Count (150-450) k/uL MPV Neutrophils % % Lymphocytes % % Monocytes % % Eosinophils % % Basophils % % Neutrophils # (1.3-7.7) k/uL Lymphocytes # (1.0-4.8) k/uL Monocytes # (0-1.0) k/uL Eosinophils # (0-0.7) k/uL Basophils # (0-0.2) k/uL PT (10.0-12.5) sec INR (<1.2) APTT (22.0-30.0) sec Sodium (137-145) mmol/L Potassium (3.5-5.1) mmol/L Chloride (98-107) mmol/L Carbon Dioxide (22-30) mmol/L Anion Gap mmol/L BUN (7-17) mg/dL Creatinine (0.52-1.04) mg/dL Est GFR (CKD-EPI)AfAm (>60 ml/min/1.73 sqM) Est GFR (CKD-EPI)NonAf (>60 ml/min/1.73 sqM) Glucose (74-99) mg/dL Plasma Lactic Acid [place] 0.8 (0.7-2.0) mmol/L Calcium (8.4-10.2) mg/dL Magnesium (1.6-2.3) mg/dL Total Bilirubin (0.2-1.3) mg/dL AST (14-36) U/L ALT (4-34) U/L Alkaline Phosphatase (38-126) U/L Troponin I 0.022 (0.000-0.034) ng/mL Total Protein (6.3-8.2) g/dL Albumin (3.5-5.0) g/dL Urine Color Urine Appearance (Clear) Urine pH (5.0-8.0) Ur Specific [place] (1.001-1.035) Urine Protein (Negative) Urine Glucose (UA) (Negative) Urine Ketones (Negative) Urine Blood (Negative) Urine Nitrite (Negative) Urine Bilirubin (Negative) Urine Urobilinogen (<2.0) mg/dL Ur Leukocyte Esterase (Negative) Urine RBC (0-5) /hpf Urine WBC (0-5) /hpf Ur Squamous Epith Cells (0-4) /hpf Urine Bacteria (None) /hpf Hyaline Casts (0-2) /lpf Urine Mucus (None) /hpf Influenza Type A (PCR) Not Detected (Not Detectd) Influenza Type B (PCR) Not Detected (Not Detectd) RSV (PCR) Not Detected (Not Detectd) SARS-CoV-2 (PCR) Not Detected (Not Detectd) 05/05/24 Range/Units 11:10 WBC (3.8-10.6) k/uL RBC (3.80-5.40) m/uL Hgb (11.4-16.0) gm/dL Hct (34.0-46.0) % MCV (80.0-100.0) fL MCH (25.0-35.0) pg MCHC (31.0-37.0) g/dL RDW (11.5-15.5) % Plt Count (150-450) k/uL MPV Neutrophils % % Lymphocytes % % Monocytes % % Eosinophils % % Basophils % % Neutrophils # (1.3-7.7) k/uL Lymphocytes # (1.0-4.8) k/uL Monocytes # (0-1.0) k/uL Eosinophils # (0-0.7) k/uL Basophils # (0-0.2) k/uL PT 12.0 (10.0-12.5) sec INR 1.1 (<1.2) APTT 22.3 (22.0-30.0) sec Sodium (137-145) mmol/L Potassium (3.5-5.1) mmol/L Chloride (98-107) mmol/L Carbon Dioxide (22-30) mmol/L Anion Gap mmol/L BUN (7-17) mg/dL Creatinine (0.52-1.04) mg/dL Est GFR (CKD-EPI)AfAm (>60 ml/min/1.73 sqM) Est GFR (CKD-EPI)NonAf (>60 ml/min/1.73 sqM) Glucose (74-99) mg/dL Plasma Lactic Acid [place] (0.7-2.0) mmol/L Calcium (8.4-10.2) mg/dL Magnesium (1.6-2.3) mg/dL Total Bilirubin (0.2-1.3) mg/dL AST (14-36) U/L ALT (4-34) U/L Alkaline Phosphatase (38-126) U/L Troponin I (0.000-0.034) ng/mL Total Protein (6.3-8.2) g/dL Albumin (3.5-5.0) g/dL Urine Color Urine Appearance (Clear) Urine pH (5.0-8.0) Ur Specific [place] (1.001-1.035) Urine Protein (Negative) Urine Glucose (UA) (Negative) Urine Ketones (Negative) Urine Blood (Negative) Urine Nitrite (Negative) Urine Bilirubin (Negative) Urine Urobilinogen (<2.0) mg/dL Ur Leukocyte Esterase (Negative) Urine RBC (0-5) /hpf Urine WBC (0-5) /hpf Ur Squamous Epith Cells (0-4) /hpf Urine Bacteria (None) /hpf Hyaline Casts (0-2) /lpf Urine Mucus (None) /hpf Influenza Type A (PCR) (Not Detectd) Influenza Type B (PCR) (Not Detectd) RSV (PCR) (Not Detectd) SARS-CoV-2 (PCR) (Not Detectd) - EKG Data -: EKG Interpreted by Me EKG Comments: Ekg taken at 9: 35 showing normal sinus rhythm with sinus arrhythmia. No acute ST segment or T wave abnormalities. Ventricular rate 71, DC interval 144, QRS duration 165, QT/QTc 465/487. - Radiology Data Radiology results: report reviewed, image reviewed Disposition Clinical Impression: Hypertensive urgency, UTI (urinary tract infection) Disposition: ADMITTED IP TO THIS HOSP Condition: Stable Referrals: Jaden Barajas DO [Primary Care Provider] - 1-2 days Time of Disposition: 11:30
[2024-05-05] MEDS: ACETAMINOPHEN TAB 325 MG TAB PO STA (09:58)
[2024-05-05] MEDS: SODIUM CHLORIDE 0.9% 1,000 ML IV STA (09:59)
[2024-05-05] MEDS: ONDANSETRON 4 MG/2 ML VIAL IVP STA (09:59)
[2024-05-05 10:04] LABS: Basophils % (A) 0 %; Eosinophils # (A) 0.1 k/uL (0-0.7); Eosinophils % (A) 1 %; HGB 14.5 gm/dL (11.4-16.0); Lymphocytes # (A) 0.8 k/uL (1.0-4.8); Lymphocytes % (A) 11 %; MCH 32.8 pg (25.0-35.0); MCV 99.5 fL (80.0-100.0); Mean Platelet Volume 6.6; Monocytes # (A) 0.3 k/uL (0-1.0); Monocytes % (A) 4 %; Neutrophils # (A) 5.9 k/uL (1.3-7.7); Neutrophils % (A) 83 %; Platelet Count 211 k/uL (150-450); RBC 4.42 m/uL (3.80-5.40); RDW 13.6 % (11.5-15.5); WBC 7.1 k/uL (3.8-10.6)
[2024-05-05 10:12] LABS: ALT 20 U/L (4-34); AST 31 U/L (14-36); African American GFR (CKD) 54 (>60 ml/min/1.73 sqM); Albumin 4.2 g/dL (3.5-5.0); Alkaline Phosphatase 91 U/L (38-126); Anion Gap 8 mmol/L; Blood Urea Nitrogen 24 mg/dL (7-17); Calcium 9.8 mg/dL (8.4-10.2); Carbon Dioxide 27 mmol/L (22-30); Chloride 104 mmol/L (98-107); Glucose 193 mg/dL (74-99); Magnesium 1.8 mg/dL (1.6-2.3); Non-African American GFR(CKD) 47 (>60 ml/min/1.73 sqM); Potassium 3.2 mmol/L (3.5-5.1); Sodium 139 mmol/L (137-145); Total Protein 7.2 g/dL (6.3-8.2)
[2024-05-05 10:18] LABS: Appearance,Urine Clear (Clear); Bacteria,Urine Many /hpf; Bilirubin,Urine Negative (Negative); Blood,Urine Trace (Negative); Color,Urine Colorless; Glucose,Urine (UA) 3+ (Negative); Hyaline Casts,Urine 7 /lpf (0-2); Ketones,Urine Negative (Negative); Leukocyte Esterase,Urine Small (Negative); Mucus,Urine Rare /hpf; Nitrite,Urine Positive (Negative); PH, Urine 5.5 (5.0-8.0); Protein,Urine 2+ (Negative); RBC,Urine <1 /hpf (0-5); Specific Gravity,Urine 1.012 (1.001-1.035); Squamous Epithelial Cell,Urine 1 /hpf (0-4); Urobilinogen,Urine <2.0 mg/dL (<2.0); WBC,Urine 31 /hpf (0-5)
--- NOTE | 2024-05-05 10:18 | XR ---
EXAMINATION TYPE: XR chest 2V DATE OF EXAM: 05/05/2024 COMPARISON: 01/16/2024 TECHNIQUE: PA and lateral views submitted. HISTORY: Weakness FINDINGS: Median sternotomy changes and right-sided Mediport stable. There is a 1 cm nodule overlying the right lower lobe. Surgical clips overlying the left chest. Diffuse osteopenia and degenerative change of t he spine. Atherosclerotic change aorta. Epicardial lead is seen and there are vascular calcifications in the axilla. IMPRESSION: 1. COPD. No acute infiltrate. 2. There is a 1 cm right lower lobe pulmonary nodule. Recommend follow-up CT of the chest.
[2024-05-05] MEDS ORDERED: ACETAMINOPHEN TAB 325 MG TAB PO PRN (11:25)
[2024-05-05] MEDS ORDERED: NALOXONE 0.4 MG/ML 1 ML VIAL IV PRN (11:25)
[2024-05-05] MEDS ORDERED: ONDANSETRON 4 MG/2 ML VIAL IVP PRN (11:25)
[2024-05-05] MEDS: cloNIDine HCL 0.1 MG TAB PO STA (11:33)
[2024-05-05 11:37] LABS: INR 1.1 (<1.2); Partial Thromboplastin Time 22.3 sec (22.0-30.0)
--- NOTE | 2024-05-05 12:01 | P.HPIM ---
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 She presented to the emergency department from [facility] secondary to intractable nausea and vomiting and hypertensive urgency. Patient reports she recently completed chemotherapy and was scheduled to begin immunotherapy reports prior to beginning her nausea was so severe and her blood pressures were elevated so they would not begin and sent her to the emergency department for evaluation. On arrival to our facility patient underwent evaluation in the ER. Vital signs upon arrival show blood pressure 184/90, heart rate 76, respiratory rate 18, temp 98.0 F, and SpO2 of 96% on room air. Blood pressure elevated as high as 224/90. EKG was completed showing normal sinus rhythm at 71 bpm with T wave inversion in lateral lead aVL. Chest x-ray completed showing a 1 cm right lower lobe pulmonary nodule and findings consistent of COPD but negative for acute cardial pulmonary process. Completed and reviewed. CBC was unremarkable. Coagulation profile normal findings. BMP showing hypokalemia with potassium of 3.2 and elevated renal function with BUN of 24, creatinine 1.18, GFR 47 which appears to be at baseline creatinine of 1.1. Blood glucose was 193. Lactic acid was 0.8. Magnesium 1.8. Liver profile unremarkable. Troponin was 0.022. Urinalysis positive for nitrites and 31 WBCs. Influenza A, influenza B, RSV and COVID were negative. Review of systems: Pertinent positives and negatives as discussed in HPI, a complete review of systems was performed and all other systems are negative. Physical exam: Vital signs reviewed and stable. General: Nontoxic, no distress and appears stated age. Derm: Skin warm and dry, normal coloration for ethnicity. Head: Atraumatic, normocephalic and symmetric. Eyes: EOMs intact, no lid lag, and anicteric sclera Mouth: no lip lesions, mucus membranes moist Cardiovascular: regular rate and rhythm with normal S1S2, no murmur, positive posterior tibial pulses bilaterally, and cap refill < 2 seconds. Lungs: Respirations even, regular, and unlabored on room air. Lungs CTA bilaterally, no rhonchi, no rales, no wheezing, and no accessory muscle usage. Abdominal: soft, nontender to palpation, no guarding, no appreciable organomegaly Ext: ROM intact. No gross muscle atrophy, no edema, no contractures Neuro: Speech clear, face symmetrical and CN II-XII grossly intact with no noted focal neuro deficits Psych: Alert and oriented to person, place, time, and situation. Appropriate and pleasant affect. Assessment and Plan of Care: Intractable nausea Hypertensive urgency Small cell lung cancer with brain metastasis Paroxysmal atrial fibrillation -Cardiology consulted, appreciate recommendations -Oncology consulted -Order placed for Compazine 10 mg IVP every 6 hours as needed for nausea or vomiting. -Telemetry monitoring -Trend troponins -Continue antihypertensive medication regimen with lisinopril 40 mg twice daily and hydralazine 25 mg twice daily. Patient given clonidine point 1 mg in the emergency department. Will monitor for improvement of hypertension. Will hold off on adding additional antihypertensive medications at this time will reevaluate blood pressure once nausea is controlled. -Continue anticoagulation with Eliquis 5 mg twice daily. UTI -Order placed for Rocephin 2 g IVPB every 24 hours. -Follow-up on urine culture results -Follow-up on blood culture results. Hypokalemia -Potassium 3.2. Orders placed for K-Dur 40 mEq p.o. x 1 dose. Hyperthyroidism -Continue anastrozole 1 mg daily Data and imaging reviewed: - As stated above in HPI. The patient is admitted with an anticipated greater than 2 midnight stay for evaluation of intractable nausea and hypertensive urgency CODE STATUS: Full code DVT prophylaxis: Eliquis Anticipated discharge date: Pending clinical course Anticipated discharge place: Home Patient was seen independently by Nurse Practitioner. This document was prepared using [employer] dictation software. Please allow for errors in beef pluck trimmer while rare they do occur. 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 murmur. hx breast cancer- radiation complete 04/2023. current spot on lung NO LEFT ARM use. 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 Pt has claustrophobia. Past Psychological History: Anxiety, Panic Disorder Smoking Status: Current every day smoker, Current some day smoker, Former smoker Past Alcohol Use History: None Reported Past Drug Use History: None Reported - Past Family History Mother Family Medical History: Diabetes Mellitus, Hyperlipidemia, Hypertension Sister(s) Family Medical History: Cancer Additional Family Medical History / Comment(s): Cervical cancer. She is . Medications and Allergies Home Medications Medication Instructions Recorded Confirmed Type Anastrozole 1 mg PO DAILY 11/20/23 05/05/24 History ALPRAZolam [Xanax] 0.5 mg PO BID PRN 12/20/23 05/05/24 History Acetaminophen Tab [Tylenol] 650 mg PO Q6HR PRN tab 12/23/23 05/05/24 Rx Escitalopram [Lexapro] 20 mg PO DAILY 12/23/23 05/05/24 History Esomeprazole Magnesium [NexIUM] 40 mg PO DAILY 12/23/23 05/05/24 History Potassium Chloride ER [K-Dur 20] 20 meq PO BID 12/23/23 05/05/24 History Rosuvastatin Calcium [Crestor] 40 mg PO DAILY 12/23/23 05/05/24 History oxyBUTYnin chloride [Ditropan] 5 mg PO DAILY 12/23/23 05/05/24 History Apixaban [Eliquis] 5 mg PO BID 01/10/24 05/05/24 History Furosemide [Lasix] 20 mg PO BID 01/10/24 05/05/24 History hydrALAZINE HCL 25 mg PO BID 01/10/24 05/05/24 History Dapagliflozin Propanediol [Farxiga] 5 mg PO DAILY 05/05/24 05/05/24 History Enalapril [Vasotec] 20 mg PO BID 05/05/24 05/05/24 History Insulin Degludec [Tresiba 15 - 20 units SQ HS 05/05/24 05/05/24 History Flextouch U-100 Pen] dexAMETHasone [Decadron] See Taper PO DIRECTED 05/05/24 05/05/24 History Allergies Allergy/AdvReac Type Severity Reaction Status Date / Time dog dander Allergy Runny nose Verified 05/05/24 11:53 codeine AdvReac Chest Pain Verified 05/05/24 11:53 empagliflozin AdvReac severe UTI Verified 05/05/24 11:53 [From Jardiance] metformin AdvReac Diarrhea Verified 05/05/24 11:53 pioglitazone [From Actos] AdvReac denies Verified 05/05/24 11:53 allergy semaglutide [From Ozempic] AdvReac denies Verified 05/05/24 11:53 allergy sitagliptin [From Januvia] AdvReac severe UTI Verified 05/05/24 11:53 dogs,horses,mold Allergy Runny nose Uncoded 05/05/24 09:25 Physical Exam Vitals: Vital Signs Temp Pulse Resp BP Pulse Ox 05/05/24 11:34 73 18 210/89 95 05/05/24 10:03 71 18 209/90 97 05/05/24 09:21 98.0 F 76 18 184/90 96 Intake and Output 05/04/24 05/05/24 05/05/24 22:59 06:59 14:59 Other: Weight 71.214 kg Results CBC & Chem 7: 05/05/24 09:48 05/05/24 09:48 Labs: Abnormal Lab Results - Last 24 Hours (Table) 05/05/24 05/05/24 05/05/24 Range/Units 09:48 09:48 09:48 Lymphocytes # 0.8 L (1.0-4.8) k/uL Potassium 3.2 L (3.5-5.1) mmol/L BUN 24 H (7-17) mg/dL Creatinine 1.18 H (0.52-1.04) mg/dL Glucose 193 H (74-99) mg/dL Urine Protein 2+ H (Negative) Urine Glucose (UA) 3+ H (Negative) Urine Blood Trace H (Negative) Urine Nitrite Positive H (Negative) Ur Leukocyte Esterase Small H (Negative) Urine WBC 31 H (0-5) /hpf Urine Bacteria Many H (None) /hpf Hyaline Casts 7 H (0-2) /lpf Urine Mucus Rare H (None) /hpf
[2024-05-05] MEDS ORDERED: DEXTROSE 50% SYRINGE 50 ML IVP PRN ×2 (12:04)
[2024-05-05] MEDS: KETOROLAC 15 MG/ML 1 ML VIAL IVP STA (12:18)
[2024-05-05] MEDS: PROCHLORPERAZINE INJ 10 MG/2 ML VIAL IVP STA (12:18)
[2024-05-05] MEDS: POTASSIUM CHLORIDE ER 20 MEQ TAB.ER PO STA (12:19)
[2024-05-05] MEDS: diphenhydrAMINE 50 MG/ML 1 ML VIAL IVP STA (12:19)
[2024-05-05] MEDS: INSULIN ASPART (NovoLOG) 100 UNIT/ML VIAL SQ SCH (12:21)
[2024-05-05] MEDS: hydrALAZINE HCL 25 MG TAB PO SCH (13:12)
[2024-05-05] MEDS: lisinopriL 20 MG TAB PO SCH (13:12)
[2024-05-05] MEDS: FUROSEMIDE 20 MG TAB PO SCH (15:36)
[2024-05-05] MEDS: PROCHLORPERAZINE INJ 10 MG/2 ML VIAL IVP PRN (20:31)
[2024-05-05] MEDS: APIXABAN 5 MG TAB PO SCH (20:31)
[2024-05-05] MEDS: ALPRAZolam 0.5 MG TAB PO PRN (22:15)
[2024-05-05 22:22] LABS: Glucose,Whole Blood 311 mg/dL (70-110)
[2024-05-06 06:14] LABS: Glucose,Whole Blood 193 mg/dL (70-110)
[2024-05-06 07:05] VITALS: BP 156/75; PULSE 66; RESP 18; TEMP 98.2
[2024-05-06] MEDS: DAPAGLIFLOZIN PROPANEDIOL 5 MG TABLET PO SCH (08:35)
[2024-05-06] MEDS: ATORVASTATIN 80 MG TAB PO SCH (08:35)
[2024-05-06] MEDS: oxyBUTYnin chloride 5 MG TAB PO SCH (08:36)
[2024-05-06] MEDS: ESCITALOPRAM 20 MG TAB PO SCH (08:36)
[2024-05-06] MEDS: PANTOPRAZOLE 40 MG TABLET PO SCH (08:36)
[2024-05-06 10:17] LABS: HCT 37.3 % (37.2-46.3); HGB 12.5 g/dL (12.0-15.0); MCH 33.2 pg (27.0-32.0); MCHC 33.5 g/dL (32.0-37.0); MCV 99.2 FL (80.0-97.0); Mean Platelet Volume 9.5 FL (9.5-12.2); NRBC Per 100 WBC 0 X 10*3/uL (0.00-0.01); Platelet Count 170 X 10*3/uL (140-440); RBC 3.76 X 10*6/uL (4.10-5.20); RDW 12.8 % (11.5-14.5); WBC 5.78 X 10*3/uL (4.50-10.00)
[2024-05-06] MEDS: ANASTROZOLE 1 MG TAB PO SCH (10:21)
[2024-05-06 10:38] LABS: ALT 15 U/L (8-44); AST 17 U/L (13-35); Albumin 3.6 g/dL (3.8-4.9); Alkaline Phosphatase 77 U/L (41-126); BUN/Creat Ratio 18.29 Ratio (12.00-20.00); Blood Urea Nitrogen 25.6 mg/dL (9.0-27.0); Calcium 9.2 mg/dL (8.7-10.3); Carbon Dioxide 23.6 mmol/L (21.6-31.8); Chloride 104 mmol/L (96-109); Glucose 195 mg/dL (70-110); Magnesium 1.7 mg/dL (1.5-2.4); Potassium 3.4 mmol/L (3.5-5.5); Sodium 140 mmol/L (135-145); Total Bilirubin 0.4 mg/dL (0.3-1.2); Total Protein 5.6 g/dL (6.2-8.2)
[2024-05-06 11:28] LABS: Glucose,Whole Blood 232 mg/dL (70-110)
--- NOTE | 2024-05-06 11:33 | P.DS ---
Providers Date of admission: 05/05/24 15:08 Expected date of discharge: 05/06/24 Attending physician: Juarez Parson MD Consults: 05/05/24 11:25 Consult Physician Urgent Consulting Provider: Carrington De Jesus Consult Reason/Comments: uti Do you want consulting provider notified?: Yes 05/05/24 18:49 Consult Physician Routine Consulting Provider: Valerio Williamson Consult Reason/Comments: hypertensive urgency Do you want consulting provider notified?: Yes Primary care physician: [facility] Course: Discharge Diagnosis: Intractable nausea. Resolved. Possibly secondary to chemotherapy versus immunotherapy. Patient discharged home with prescription for Compazine to be used as needed for future episodes of chemotherapy-induced nausea/vomiting. Hypertensive urgency. Resolved after resolution of intractable nausea. Patient to continue antihypertensive medication regimen with lisinopril 40 mg twice daily and hydralazine 25 mg daily as previously prescribed. Small cell lung cancer with brain metastasis. Continue to follow-up outpatient with tearer press clipping/oncologist for continued immunotherapy/chemotherapy treatments as scheduled. Paroxysmal atrial fibrillation UTI. Patient received 2-day course of IV antibiotics with Rocephin and discharged home on Keflex 500 mg 4 times daily for an additional 5 days. Hypokalemia, replaced. Hypomagnesemia, replaced. Hyperthyroidism. 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 She presented to the emergency department from [facility] secondary to intractable nausea and vomiting and hypertensive urgency. Patient reports she recently completed chemotherapy and was scheduled to begin immunotherapy reports prior to beginning her nausea was so severe and her blood pressures were elevated so they would not begin and sent her to the emergency department for evaluation. On arrival to our facility patient underwent evaluation in the ER. Vital signs upon arrival show blood pressure 184/90, heart rate 76, respiratory rate 18, temp 98.0 F, and SpO2 of 96% on room air. Blood pressure elevated as high as 224/90. EKG was completed showing normal sinus rhythm at 71 bpm with T wave inversion in lateral lead aVL. Chest x-ray completed showing a 1 cm right lower lobe pulmonary nodule and findings consistent of COPD but negative for acute cardial pulmonary process. Completed and reviewed. CBC was unremarkable. Coagulation profile normal findings. BMP showing hypokalemia with potassium of 3.2 and elevated renal function with BUN of 24, creatinine 1.18, GFR 47 which appears to be at baseline creatinine of 1.1. Blood glucose was 193. Lactic acid was 0.8. Magnesium 1.8. Liver profile unremarkable. Troponin was 0.022. Urinalysis positive for nitrites and 31 WBCs. Influenza A, influenza B, RSV and COVID were negative. Patient was admitted under our services for observation. She received IV fluid hydration and IV antiemetics with Compazine. Patient had full resolution of nausea which in turn resulted in resolution of hypertensive urgency. Patient requesting discharge at this time states that she feels back to her baseline and is ready to go home. Patient's daughter and at bedside states patient has family support at home and both patient and family deny having any needs. Patient is medically stable at this time and is cleared for discharge. Patient to follow-up outpatient with PCP in 1 to 2 days and with hematology/oncology as scheduled. Physical exam: Vital signs reviewed and stable. General: Nontoxic, no distress and appears stated age. Derm: Skin warm and dry, normal coloration for ethnicity. Head: Atraumatic, normocephalic and symmetric. Eyes: EOMs intact, no lid lag, and anicteric sclera Mouth: no lip lesions, mucus membranes moist Cardiovascular: regular rate and rhythm with normal S1S2, no murmur, positive posterior tibial pulses bilaterally, and cap refill < 2 seconds. Lungs: Respirations even, regular, and unlabored on room air. Lungs CTA bilaterally, no rhonchi, no rales, no wheezing, and no accessory muscle usage. Abdominal: soft, nontender to palpation, no guarding, no appreciable organomegaly Ext: ROM intact. No gross muscle atrophy, no edema, no contractures Neuro: Speech clear, face symmetrical and CN II-XII grossly intact with no noted focal neuro deficits Psych: Alert and oriented to person, place, time, and situation. Appropriate and pleasant affect. A total of 34 minutes of time were spent preparing this complex discharge summary. Pt was discharged on 05/06/2024 at 11:31 AM. Patient was seen independently by Nurse Practitioner. This document was prepared using [employer] dictation software. Please allow for errors in police reserves commander while rare they do occur. Patient Condition at Discharge: Stable Plan - Discharge Summary New Discharge Prescriptions: New Cephalexin [Keflex] 500 mg PO Q6HR 5 Days #20 cap Prochlorperazine [Compazine] 10 mg PO Q6H PRN #30 tab PRN Reason: Nausea Continue Rosuvastatin Calcium [Crestor] 40 mg PO DAILY oxyBUTYnin chloride [Ditropan] 5 mg PO DAILY Esomeprazole Magnesium [NexIUM] 40 mg PO DAILY Acetaminophen Tab [Tylenol] 650 mg PO Q6HR PRN tab PRN Reason: Fever And/ Or Pain Apixaban [Eliquis] 5 mg PO BID Enalapril [Vasotec] 20 mg PO BID Dapagliflozin Propanediol [Farxiga] 5 mg PO DAILY Anastrozole 1 mg PO DAILY ALPRAZolam [Xanax] 0.5 mg PO BID PRN PRN Reason: Anxiety Potassium Chloride ER [K-Dur 20] 20 meq PO BID Escitalopram [Lexapro] 20 mg PO DAILY hydrALAZINE HCL 25 mg PO BID Furosemide [Lasix] 20 mg PO BID Insulin Degludec [Tresiba Flextouch U-100 Pen] 15 - 20 units SQ HS dexAMETHasone [Decadron] See Taper PO DIRECTED Discharge Medication List Anastrozole 1 mg PO DAILY 11/20/23 [History] ALPRAZolam [Xanax] 0.5 mg PO BID PRN 12/20/23 [History] Acetaminophen Tab [Tylenol] 650 mg PO Q6HR PRN tab 12/23/23 [Rx] Escitalopram [Lexapro] 20 mg PO DAILY 12/23/23 [History] Esomeprazole Magnesium [NexIUM] 40 mg PO DAILY 12/23/23 [History] Potassium Chloride ER [K-Dur 20] 20 meq PO BID 12/23/23 [History] Rosuvastatin Calcium [Crestor] 40 mg PO DAILY 12/23/23 [History] oxyBUTYnin chloride [Ditropan] 5 mg PO DAILY 12/23/23 [History] Apixaban [Eliquis] 5 mg PO BID 01/10/24 [History] Furosemide [Lasix] 20 mg PO BID 01/10/24 [History] hydrALAZINE HCL 25 mg PO BID 01/10/24 [History] Dapagliflozin Propanediol [Farxiga] 5 mg PO DAILY 05/05/24 [History] Enalapril [Vasotec] 20 mg PO BID 05/05/24 [History] Insulin Degludec [Tresiba Flextouch U-100 Pen] 15 - 20 units SQ HS 05/05/24 [History] dexAMETHasone [Decadron] See Taper PO DIRECTED 05/05/24 [History] Cephalexin [Keflex] 500 mg PO Q6HR 5 Days #20 cap 05/06/24 [Rx] Prochlorperazine [Compazine] 10 mg PO Q6H PRN #30 tab 05/06/24 [Rx] Follow up Appointment(s)/Referral(s): Jose Angel De Jesus MD [STAFF PHYSICIAN] - 1 Week (office will call with appointment time) Jaden Barajas DO [Primary Care Provider] - 1-2 days Patient Instructions/Handouts: Chemo Induced Nausea and Vomiting (DC) Activity/Diet/Wound Care/Special Instructions: Activity: As tolerated. Take breaks as needed. Diet: Heart healthy and carb consistent diet. Avoid salts, or foods with hidden salts such as canned or boxed foods and frozen dinners. Extra salt makes your heart work harder and traps the fluid in your body for longer. Special Instructions: Take all of your medications as directed and remember to keep all of your doctor's appointments and follow-up as needed. Thank you for allowing us to participate in your care, it was truly a pleasure having you for our patient!!! Discharge Disposition: HOME SELF-CARE
[2024-05-06] MEDS: MAGNESIUM OXIDE 400 MG TAB PO STA (11:50)
[2024-05-06] MEDS: POTASSIUM CHLORIDE ER 20 MEQ TAB.ER PO STA (12:05)
== END 2024-05-06 12:18 | disposition home or self-care (01) ==
LOC: EC 09:18 → 6NMEDSUR 15:08 → 4SSUR 18:16
PROVIDERS: ADMIT Family Medicine; ATTEND Family Medicine
DX: R11.2 Nausea with vomiting, unspecified (principal); I16.0 Hypertensive urgency; C34.90 Malignant neoplasm of unspecified part of unspecified bronchus or lung; C79.31 Secondary malignant neoplasm of brain; I48.0 Paroxysmal atrial fibrillation; N39.0 Urinary tract infection, site not specified; E87.6 Hypokalemia; E83.42 Hypomagnesemia; E05.90 Thyrotoxicosis, unspecified without thyrotoxic crisis or storm; M81.0 Age-related osteoporosis without current pathological fracture; E11.51 Type 2 diabetes mellitus with diabetic peripheral angiopathy without gangrene; E78.5 Hyperlipidemia, unspecified; F17.200 Nicotine dependence, unspecified, uncomplicated; F40.240 Claustrophobia; F41.0 Panic disorder [episodic paroxysmal anxiety]; Z85.3 Personal history of malignant neoplasm of breast; Z85.118 Personal history of other malignant neoplasm of bronchus and lung; Z83.3 Family history of diabetes mellitus; Z82.49 Family history of ischemic heart disease and other diseases of the circulatory system; Z80.49 Family history of malignant neoplasm of other genital organs; Z79.84 Long term (current) use of oral hypoglycemic drugs; Z79.899 Other long term (current) drug therapy; Z79.4 Long term (current) use of insulin; Z79.01 Long term (current) use of anticoagulants
CPT/HCPCS: 96375 ×2; 96367; 96361; 96365; 96374; 99285; 36415; 93005; 80053 ×2; 83605; 83735 ×2; 84484; 85025; 85027; 85610; 85730; 81001; 87040; 87636; 71046; G0378 ×3; J1200; J0780; J2405; J0696; S0170; J1642; J1885

== ENCOUNTER 2024-05-17 02:07 | Observation (INO) | payer MEDICARE, OTHER ==
[2024-05-17 02:27] VITALS: RESP 17
[2024-05-17] MEDS: SODIUM CHLORIDE 0.9% 1,000 ML IV STA (02:57)
[2024-05-17] MEDS: METOCLOPRAMIDE 5 MG/ML 2 ML VIAL IVP STA (03:01)
[2024-05-17] MEDS: diphenhydrAMINE 50 MG/ML 1 ML VIAL IVP STA (03:07)
[2024-05-17 03:10] LABS: Basophils % (A) 0 %; Eosinophils # (A) 0.2 k/uL (0-0.7); Eosinophils % (A) 2 %; HCT 46.5 % (34.0-46.0); HGB 15.5 gm/dL (11.4-16.0); Lymphocytes # (A) 0.5 k/uL (1.0-4.8); Lymphocytes % (A) 7 %; MCH 32.6 pg (25.0-35.0); MCHC 33.4 g/dL (31.0-37.0); MCV 97.7 fL (80.0-100.0); Monocytes # (A) 0.4 k/uL (0-1.0); Monocytes % (A) 6 %; Neutrophils # (A) 6.8 k/uL (1.3-7.7); Neutrophils % (A) 85 %; Platelet Count 168 k/uL (150-450); RBC 4.76 m/uL (3.80-5.40); RDW 13.3 % (11.5-15.5)
[2024-05-17 03:27] LABS: ALT 24 U/L (4-34); AST 35 U/L (14-36); African American GFR (CKD) 49 (>60 ml/min/1.73 sqM); Alkaline Phosphatase 100 U/L (38-126); Amylase 47 U/L (30-110); Anion Gap 7 mmol/L; Blood Urea Nitrogen 32 mg/dL (7-17); Calcium 9.5 mg/dL (8.4-10.2); Carbon Dioxide 27 mmol/L (22-30); Chloride 97 mmol/L (98-107); Glucose 373 mg/dL (74-99); Lipase 120 U/L (23-300); Non-African American GFR(CKD) 43 (>60 ml/min/1.73 sqM); Potassium 3.1 mmol/L (3.5-5.1); Sodium 131 mmol/L (137-145); Total Bilirubin 1.2 mg/dL (0.2-1.3); Total Protein 6.4 g/dL (6.3-8.2)
--- NOTE | 2024-05-17 03:28 | ED ---
General Adult HPI - General Chief complaint: Nausea/Vomiting/Diarrhea Stated complaint: Vomiting Time Seen by Provider: 05/17/24 02:35 Source: patient, family, RN notes reviewed, old records reviewed Mode of arrival: wheelchair Limitations: no limitations - History of Present Illness Initial comments: Patient is a 73-year-old female with past medical history remarkable for small cell lung cancer with metastasis to the brain, atrial flutter on blood thinners, COPD, diabetes, hypertension, hyperlipidemia. Patient is currently on immunotherapy but has not yet started radiation. Presents for evaluation of generalized weakness as well as concern for no appetite. Patient has not been eating. Concern for dehydration. She denies any chest pain, abdominal pain, shortness of breath. Does endorse nausea. Just endorses generalized weakness. Denies significant cough. Denies sore throat. No fevers. Presents for further evaluation at this time. Otherwise is acting her normal baseline mental status.Patient denies any recent falls or injuries. - Related Data Home Medications Medication Instructions Recorded Confirmed Anastrozole 1 mg PO DAILY 11/20/23 05/05/24 ALPRAZolam [Xanax] 0.5 mg PO BID PRN 12/20/23 05/05/24 Escitalopram [Lexapro] 20 mg PO DAILY 12/23/23 05/05/24 Esomeprazole Magnesium [NexIUM] 40 mg PO DAILY 12/23/23 05/05/24 Potassium Chloride ER [K-Dur 20] 20 meq PO BID 12/23/23 05/05/24 Rosuvastatin Calcium [Crestor] 40 mg PO DAILY 12/23/23 05/05/24 oxyBUTYnin chloride [Ditropan] 5 mg PO DAILY 12/23/23 05/05/24 Apixaban [Eliquis] 5 mg PO BID 01/10/24 05/05/24 Furosemide [Lasix] 20 mg PO BID 01/10/24 05/05/24 hydrALAZINE HCL 25 mg PO BID 01/10/24 05/05/24 Dapagliflozin Propanediol [Farxiga] 5 mg PO DAILY 05/05/24 05/05/24 Enalapril [Vasotec] 20 mg PO BID 05/05/24 05/05/24 Insulin Degludec [Tresiba 15 - 20 units SQ HS 05/05/24 05/05/24 Flextouch U-100 Pen] dexAMETHasone [Decadron] See Taper PO DIRECTED 05/05/24 05/05/24 Previous Rx's Medication Instructions Recorded Acetaminophen Tab [Tylenol] 650 mg PO Q6HR PRN tab 12/23/23 Cephalexin [Keflex] 500 mg PO Q6HR 5 Days #20 cap 05/06/24 Prochlorperazine [Compazine] 10 mg PO Q6H PRN #30 tab 05/06/24 Allergies Allergy/AdvReac Type Severity Reaction Status Date / Time dog dander Allergy Runny nose Verified 05/17/24 02:14 codeine AdvReac Chest Pain Verified 05/17/24 02:14 empagliflozin AdvReac severe UTI Verified 05/17/24 02:14 [From Jardiance] metformin AdvReac Diarrhea Verified 05/17/24 02:14 pioglitazone [From Actos] AdvReac denies Verified 05/17/24 02:14 allergy semaglutide [From Ozempic] AdvReac denies Verified 05/17/24 02:14 allergy sitagliptin [From Januvia] AdvReac severe UTI Verified 05/17/24 02:14 dogs,horses,mold Allergy Runny nose Uncoded 05/17/24 02:14 Review of Systems ROS Statement: Those systems with pertinent positive or pertinent negative responses have been documented in the HPI. Review of Systems: CONST: Denies fever EYES: Denies blurry vision ENT: Denies nasal congestion C/V: Denies Chest pain RESP: Denies shortness of breath GI: Denies abdominal pain : Denies dysuria SKIN: Denies rash. MSK: Denies joint pain. NEURO: Endorses generalized weakness ROS Other: All systems not noted in ROS Statement are negative. 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 murmur. hx breast cancer- radiation complete 04/2023. current spot on lung NO LEFT ARM use. 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 Pt has claustrophobia. Past Psychological History: Anxiety, Panic Disorder Smoking Status: Current every day smoker, Current some day smoker Past Alcohol Use History: None Reported Past Drug Use History: None Reported - Past Family History Mother Family Medical History: Diabetes Mellitus, Hyperlipidemia, Hypertension Sister(s) Family Medical History: Cancer Additional Family Medical History / Comment(s): Cervical cancer. She is . General Exam - General Exam Comments Initial Comments: General: Appears in no acute distress. HEAD: Normal with no signs of head trauma. EYES: PERRLA, EOMI, conjunctiva normal, no discharge.Pupils are 3 mm and equal bilaterally. ENT: Hearing grossly intact, normal oropharynx. Mucous membranes. RESPIRATORY: Clear breath sounds bilaterally. No wheezes, rales, or rhonchi. C/V: Regular rate and rhythm. S1 and S2 auscultated, no edema, peripheral pulses 2+ and intact throughout ABD: Abd is soft, nontender, nondistended EXT: Normal range of motion, no obvious deformity SKIN: No rashes or lesions observed on exposed skin. NEURO: Alert and oriented x 4. No obvious focal deficits. NIH is 0. GCS 15. Limitations: no limitations Course Vital Signs 05/17/24 05/17/24 02:12 02:23 Temperature 97.9 F 97.8 F Pulse Rate 94 87 Respiratory 18 17 Rate Blood Pressure 132/80 165/84 O2 Sat by Pulse 97 95 Oximetry Medical Decision Making - Medical Decision Making Was pt. sent in by a medical professional or institution ([facility], [facility], urgent care, hospital, or [facility]...) When possible be specific @ -No Did you speak to anyone other than the patient for history (EMS, parent, family, police, friend...)? What history was obtained from this source @ -No Did you review nursing and triage notes (agree or disagree)? Why? @ -I reviewed and agree with nursing and triage notes Were old charts reviewed (outside hosp., previous admission, EMS record, old EKG, old radiological studies, urgent care reports/EKG's, [facility] records)? Report findings @ -Old charts reviewed from last admission on May 05, 2024 when patient was admitted with a UTI. EKG reviewed from that time. No obvious acute changes on EKG today. Differential Diagnosis (chest pain, altered mental status, abdominal pain women, abdominal pain men, vaginal bleeding, weakness, fever, dyspnea, syncope, headache, dizziness, GI bleed, back pain, seizure, CVA, palpatations, mental health, musculoskeletal)? @ -Differential Weakness: Hypoglycemia, shock, sepsis, hyponatremia, anemia, infection, SD, ETOH, adverse medicine reaction, overdose, stroke, this is not meant to be an all-inclusive list. EKG interpreted by me (3pts min.). @ -As above X-rays interpreted by me (1pt min.). @ -Chest x-ray shows no obvious acute cardiopulmonary process. CT interpreted by me (1pt min.). @ -None done U/S interpreted by me (1pt. min.). @ -None done What testing was considered but not performed or refused? (CT, X-rays, U/S, labs)? Why? @ -None What meds were considered but not given or refused? Why? @ -None Did you discuss the management of the patient with other professionals (professionals i.e. , PA, [employer], lab, RT, psych nurse, social welfare clerk, director operating, teacher, credit review officer, case advocate)? Give summary @ - I spoke with the admitting team, Dr. Shin [facility] who accepted the admission. Was smoking cessation discussed for >3mins.? @ -No Was critical care preformed (if so, how long)? @ -No Were there social determinants of health that impacted care today? How? (Homelessness, low income, unemployed, alcoholism, drug addiction, t ransportation, low edu. Level, literacy, decrease access to med. care, senior care, rehab)? @ -No Was there de-escalation of care discussed even if they declined (Discuss DNR or withdrawal of care, Hospice)? DNR status @ -No What co-morbidities impacted this encounter? (DM, HTN, Smoking, COPD, CAD, Cance r, CVA, ARF, Chemo, Hep., AIDS, mental health diagnosis, sleep apnea, morbid obesity)? @ -None Was patient admitted / discharged? Hospital course, mention meds given and route, prescriptions, significant lab abnormalities, going to OR and other pertinent info. @ -Based on the patient's presentation and physical exam, presents emergency department complaining of nausea with generalized weakness. Could be secondary to dehydration as she has been not eating. We will obtain basic infectious labs as well as chest x-ray. Known history of cancer. Vital signs currently within acceptable limits. She will be given IV fluids as well as IV Benadryl with Reglan. Patient in agreement with this plan. EKG shows no signs of acute ischemia. Laboratory studies remarkable for hypokalemia with a potassium of 3.1. Mild hyponatremia and hypochloremia as well.Imaging is unremarkable. Still waiting for urinalysis. I spoke with the patient. I would like to admit her to the hospital for observation for hydration as well as some supplementation. Patient's oncologist Dr. Leigh Ann De Jesus follow-up will also be consulted. She was in agreement this plan. I spoke with the admitting team, Dr. [facility] who accepted the admission. Undiagnosed new problem with uncertain prognosis? @ -No Drug Therapy requiring intensive monitoring for toxicity (Heparin, Nitro, Insulin, Cardizem)? @ -No Were any procedures done? @ -No Diagnosis/symptom? @ -Weakness, dehydration in the setting of metastatic cancer Acute, or Chronic, or Acute on Chronic? @ -Acute Uncomplicated (without systemic symptoms) or Complicated (systemic symptoms)? @ -Complicated Side effects of treatment? @ -None Exacerbation, Progression, or Severe Exacerbation] @ -No Poses a threat to life or bodily function? @ -Yes - Lab Data Result diagrams: 05/17/24 02:44 05/17/24 02:44 Lab Results 05/17/24 05/17/24 05/17/24 Range/Units 02:44 02:44 02:44 WBC 8.0 (3.8-10.6) k/uL RBC 4.76 (3.80-5.40) m/uL Hgb 15.5 (11.4-16.0) gm/dL Hct 46.5 H (34.0-46.0) % MCV 97.7 (80.0-100.0) fL MCH 32.6 (25.0-35.0) pg MCHC 33.4 (31.0-37.0) g/dL RDW 13.3 (11.5-15.5) % Plt Count 168 (150-450) k/uL MPV 7.0 Neutrophils % 85 % Lymphocytes % 7 % Monocytes % 6 % Eosinophils % 2 % Basophils % 0 % Neutrophils # 6.8 (1.3-7.7) k/uL Lymphocytes # 0.5 L (1.0-4.8) k/uL Monocytes # 0.4 (0-1.0) k/uL Eosinophils # 0.2 (0-0.7) k/uL Basophils # 0.0 (0-0.2) k/uL PT 12.7 H (10.0-12.5) sec INR 1.2 H (<1.2) APTT 24.4 (22.0-30.0) sec Sodium 131 L (137-145) mmol/L Potassium 3.1 L (3.5-5.1) mmol/L Chloride 97 L (98-107) mmol/L Carbon Dioxide 27 (22-30) mmol/L Anion Gap 7 mmol/L BUN 32 H (7-17) mg/dL Creatinine 1.27 H (0.52-1.04) mg/dL Est GFR (CKD-EPI)AfAm 49 (>60 ml/min/1.73 sqM) Est GFR (CKD-EPI)NonAf 43 (>60 ml/min/1.73 sqM) Glucose 373 H (74-99) mg/dL Plasma Lactic Acid Benjamín (0.7-2.0) mmol/L Calcium 9.5 (8.4-10.2) mg/dL Total Bilirubin 1.2 (0.2-1.3) mg/dL AST 35 (14-36) U/L ALT 24 (4-34) U/L Alkaline Phosphatase 100 (38-126) U/L Total Protein 6.4 (6.3-8.2) g/dL Albumin 4.0 (3.5-5.0) g/dL Amylase 47 (30-110) U/L Lipase 120 (23-300) U/L Influenza Type A (PCR) (Not Detectd) Influenza Type B (PCR) (Not Detectd) RSV (PCR) (Not Detectd) SARS-CoV-2 (PCR) (Not Detectd) 05/17/24 05/17/24 Range/Units 02:44 04:00 WBC (3.8-10.6) k/uL RBC (3.80-5.40) m/uL Hgb (11.4-16.0) gm/dL Hct (34.0-46.0) % MCV (80.0-100.0) fL MCH (25.0-35.0) pg MCHC (31.0-37.0) g/dL RDW (11.5-15.5) % Plt Count (150-450) k/uL MPV Neutrophils % % Lymphocytes % % Monocytes % % Eosinophils % % Basophils % % Neutrophils # (1.3-7.7) k/uL Lymphocytes # (1.0-4.8) k/uL Monocytes # (0-1.0) k/uL Eosinophils # (0-0.7) k/uL Basophils # (0-0.2) k/uL PT (10.0-12.5) sec INR (<1.2) APTT (22.0-30.0) sec Sodium (137-145) mmol/L Potassium (3.5-5.1) mmol/L Chloride (98-107) mmol/L Carbon Dioxide (22-30) mmol/L Anion Gap mmol/L BUN (7-17) mg/dL Creatinine (0.52-1.04) mg/dL Est GFR (CKD-EPI)AfAm (>60 ml/min/1.73 sqM) Est GFR (CKD-EPI)NonAf (>60 ml/min/1.73 sqM) Glucose (74-99) mg/dL Plasma Lactic Acid Benjamín 1.3 (0.7-2.0) mmol/L Calcium (8.4-10.2) mg/dL Total Bilirubin (0.2-1.3) mg/dL AST (14-36) U/L ALT (4-34) U/L Alkaline Phosphatase (38-126) U/L Total Protein (6.3-8.2) g/dL Albumin (3.5-5.0) g/dL Amylase (30-110) U/L Lipase (23-300) U/L Influenza Type A (PCR) Not Detected (Not Detectd) Influenza Type B (PCR) Not Detected (Not Detectd) RSV (PCR) Not Detected (Not Detectd) SARS-CoV-2 (PCR) Not Detected (Not Detectd) - EKG Data -: EKG Interpreted by Me EKG Comments: 12-lead Electrocardiogram Interpretation Note EKG was reviewed and interpreted by myself. 12-lead ECG performed at 0244 is interpreted by me as revealing normal sinus rhythm with first-degree AV block as well as right bundle branch block. At a rate of 82 beats per minute. Left axis deviation. MN interval is 223 ms, QRS duration is 145 ms, QTc is 477 ms.. There were no ST or T wave abnormalities to suggest myocardial ischemia or injury. R wave progression across the precordium was delayed. By my interp retation this EKG is non-diagnostic for acute ischemia. When compared with EKG from May 05, 2024, no significant change Disposition Clinical Impression: Weakness, Dehydration, Metastatic cancer Disposition: ADMITTED IP TO THIS HOSP Condition: Stable Referrals: Jaden Barajas DO [Primary Care Provider] - 1-2 days Time of Disposition: 04:08
[2024-05-17 03:35] LABS: INR 1.2 (<1.2)
[2024-05-17 03:36] LABS: Partial Thromboplastin Time 24.4 sec (22.0-30.0); Prothrombin Time 12.7 sec (10.0-12.5)
[2024-05-17] MEDS: POTASSIUM CHLORIDE ER 20 MEQ TAB.ER PO STA (03:54)
[2024-05-17] MEDS ORDERED: NALOXONE 0.4 MG/ML 1 ML VIAL IV PRN (04:18)
--- NOTE | 2024-05-17 04:42 | XR ---
EXAM: XR Chest, 2 Views CLINICAL HISTORY: ITS.REASON XR Reason: abdominal pain TECHNIQUE: Frontal and lateral views of the chest. COMPARISON: 2 views of the chest May 05, 2024 IMPRESSION: 1. Redemonstrated sternotomy changes in the right chest port which terminates within the mid SVC. 2. Mild flattening of the diaphragms which can be seen with COPD changes. 3. Otherwise, no acute cardiopulmonary abnormality.
[2024-05-17] MEDS: SODIUM CHLORIDE 0.9% 1,000 ML IV SCH (04:53)
[2024-05-17 06:08] VITALS: BP 193/91; PULSE 75
[2024-05-17 06:09] VITALS: TEMP 98.2
--- NOTE | 2024-05-17 06:12 | P.HPIM ---
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 1 day prior patient was already experiencing some nausea and was feeling weak. She she denies having any vomiting episodes and notes that the nausea limits her from taking in anything by mouth. Around 1 AM today, patient experienced worsening of nausea which which caused the patient to go to the ED. She has associated headaches that are dull constant nonradiating localized to the forehead area with an intensity around 2 out of 10. She also has noted photophobia and ringing of ears. Denies shortness of breath, productive cough, fevers, changes in bowel habits, hematoch ezia, hemoptysis, dizziness, loss of consciousness, changes in vision. Chest x-ray sternotomy changes in the right chest port and mild flattening of the diaphragms which can be seen in COPD changes, otherwise no acute cardiopulmonary abnormality. EKG shows first-degree AV block MO interval 223 ms, rate of 82, widened QRS at 145 ms, left ventricular hypertrophy, notable ST depressions on V1 and V2, normal QTc of 477 ms. WBC 8 hemoglobin 15.5 hematocrit 46.5 platelet 168 PT 12.7 PTT 24.4 INR 1.2 sodium 131 potassium 3.1 chloride 97 BUN 32 creatinine 1.27 glucose 373 lactic acid 1.3. Influenza, RSV, and COVID PCR not detected. Blood pressure 132/80. O2 saturation 97% on room air ED documentation reviewed. Review of systems: Pertinent positives and negatives as discussed in HPI, a complete review of systems was performed and all other systems are negative. Family history: Sister had passed due to cervical cancer Social history: Tobacco: [id number] history. Current smoker Alcohol: Denies alcohol history Recreational drugs: Denies illicit drug use Travel: No recent travel Occupation: Retired Physical examination: Vital signs reviewed General: non toxic, no distress, appears at stated age, normal weight Derm: no unusual rashes/lesions, warm Head: atraumatic, normocephalic, symmetric Eyes: EOMI, no lid lag, anicteric sclera, pupils equal round reactive to light ENT: Nose and ears atraumatic Neck: No cervical lymphadenopathy, trachea midline, supple Mouth: no lip lesion, mucus membranes moist, white plaques seen on tongue, buccal mucosa, and palate Cardiovascular: S1S2 reg, no murmur, Lungs: CTA bilateral, no rhonchi, no rales, no accessory muscle use Abdominal: soft, nontender to palpation, no guarding Ext: muscle strength 5 out of 5 in all 4 extremities grossly, no gross muscle atrophy, no contractures, positive dorsalis pedis pulse bilateral, no edema, toenail removed on right big toe Neuro: CN II-XI grossly intact, no gross focal neuro deficits Psych: Alert, oriented, appropriate affect and mood Assessment/Plan: 73-year-old female with small cell lung cancer with mets to the brain status post chemo and immunotherapy planning on having her first radiation therapy in 2 days, coming in with intractable nausea unable to keep anything down and generalized weakness. Was admitted for symptom control and dehydration requiring IV fluid hydration #. Nausea and weakness likely due to dehydration and malnutrition #. Prerenal azotemia likely due to dehydration # Electrolyte imbalance hypokalemia and hyponatremia # CKD 3 stable Elevated BUN of 32 creatinine 1.27 with ratio more than 20 reflecting dehydration Low sodium 131, low potassium 3.1 Continue with IV fluid hydration status post 1 L bolus of normal saline continue with 125 cc/h Continue with Zofran 4 mg IV every 8 hours as needed Monitor urine output Follow-up electrolytes Replace potassium patient given one-time oral dose 40 mEq in the ED Check magnesium level replace as needed #. Oral white plaques Likely candidiasis due to immunocompromise state and diabetes Order nystatin rinse #. Type 2 diabetes, with hyperglycemia Put on low-dose insulin sliding scale Check HbA1c Blood glucose Accu-Cheks before meals and bedtime Hypertensive urgency Secondary to noncompliance with home medications due to intolerance of p.o. intake Resume enalapril 20 mg p.o. twice daily Resume hydralazine 25 mg p.o. twice daily Clonidine 0.2 mg p.o. every 8 hours as needed for systolic blood pressure more than 180 Small cell lung cancer with mets to the cerebellum Status post chemo and immunotherapy Continue with supportive care Patient scheduled for radiation therapy in 2 days starting on Saturday Courtesy consult to oncology team Monitor closely if blood pressure does not improve after resuming home blood pressure medications consider ruling out the possibility of increased intracranial pressure due to metastasis to the brain as evidenced by elevated blood pressure and slight bradycardia, her most recent CT of the brain was done about 2 weeks ago showing a 1.2 cm enhancing lesion within the central cerebellum Continue with Decadron 4 mg p.o. daily Rest of her labs are overall unremarkable with white count of 8 hemoglobin 15.5 Acute respiratory viral panel is negative for RSV influenza and COVID Chronic conditions COPD, continue with inhalers nebulizers as needed Paroxysmal A-fib on Eliquis DVT prophylaxis: Eliquis 5 mg p.o. twice daily The patient is admitted with an anticipated less than 2 midnight stay for evaluation of nausea and vomiting CODE STATUS: Full Discussed with: Patient and patient's daughter Anticipated discharge place: Home Past Medical History Past Medical History: Atrial Flutter, Cancer, COPD, Diabetes Mellitus, GERD/Reflux, Hyperlipidemia, Hypertension, Osteoarthritis (OA), Vascular Disorder Additional Past Medical History / Comment(s): IDDM type II, osteoporosis, peripheral vascular disease with poor circulation involving lower extremities, urinary incontinence, previous history of epicardial wires in the heart from previous cardiac surgery, probably related to the myxoma resection. murmur. hx breast cancer- radiation complete 04/2023. current spot on lung NO LEFT ARM use. 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 Pt has claustrophobia. Past Psychological History: Anxiety, Panic Disorder Smoking Status: Current every day smoker, Current some day smoker Past Alcohol Use History: None Reported Past Drug Use History: None Reported - Past Family History Mother Family Medical History: Diabetes Mellitus, Hyperlipidemia, Hypertension Sister(s) Family Medical History: Cancer Additional Family Medical History / Comment(s): Cervical cancer. She is . Medications and Allergies Home Medications Medication Instructions Recorded Confirmed Type Anastrozole 1 mg PO DAILY 11/20/23 05/05/24 History ALPRAZolam [Xanax] 0.5 mg PO BID PRN 12/20/23 05/05/24 History Acetaminophen Tab [Tylenol] 650 mg PO Q6HR PRN tab 12/23/23 05/05/24 Rx Escitalopram [Lexapro] 20 mg PO DAILY 12/23/23 05/05/24 History Esomeprazole Magnesium [NexIUM] 40 mg PO DAILY 12/23/23 05/05/24 History Potassium Chloride ER [K-Dur 20] 20 meq PO BID 12/23/23 05/05/24 History Rosuvastatin Calcium [Crestor] 40 mg PO DAILY 12/23/23 05/05/24 History oxyBUTYnin chloride [Ditropan] 5 mg PO DAILY 12/23/23 05/05/24 History Apixaban [Eliquis] 5 mg PO BID 01/10/24 05/05/24 History Furosemide [Lasix] 20 mg PO BID 01/10/24 05/05/24 History hydrALAZINE HCL 25 mg PO BID 01/10/24 05/05/24 History Dapagliflozin Propanediol [Farxiga] 5 mg PO DAILY 05/05/24 05/05/24 History Enalapril [Vasotec] 20 mg PO BID 05/05/24 05/05/24 History Insulin Degludec [Tresiba 15 - 20 units SQ HS 05/05/24 05/05/24 History Flextouch U-100 Pen] dexAMETHasone [Decadron] See Taper PO DIRECTED 05/05/24 05/05/24 History Cephalexin [Keflex] 500 mg PO Q6HR 5 Days #20 cap 05/06/24 Rx Prochlorperazine [Compazine] 10 mg PO Q6H PRN #30 tab 05/06/24 Rx Allergies Allergy/AdvReac Type Severity Reaction Status Date / Time dog dander Allergy Runny nose Verified 05/17/24 02:14 codeine AdvReac Chest Pain Verified 05/17/24 02:14 empagliflozin AdvReac severe UTI Verified 05/17/24 02:14 [From Jardiance] metformin AdvReac Diarrhea Verified 05/17/24 02:14 pioglitazone [From Actos] AdvReac denies Verified 05/17/24 02:14 allergy semaglutide [From Ozempic] AdvReac denies Verified 05/17/24 02:14 allergy sitagliptin [From Januvia] AdvReac severe UTI Verified 05/17/24 02:14 dogs,horses,mold Allergy Runny nose Uncoded 05/17/24 02:14 Physical Exam Vitals: Vital Signs Temp Pulse Resp BP Pulse Ox 05/17/24 02:23 97.8 F 87 17 165/84 95 05/17/24 02:12 97.9 F 94 18 132/80 97 Intake and Output 05/16/24 05/16/24 05/17/24 14:59 22:59 06:59 Other: Weight 71.668 kg Results CBC & Chem 7: 05/17/24 02:44 05/17/24 02:44 Labs: Abnormal Lab Results - Last 24 Hours (Table) 05/17/24 05/17/24 05/17/24 Range/Units 02:44 02:44 02:44 Hct 46.5 H (34.0-46.0) % Lymphocytes # 0.5 L (1.0-4.8) k/uL PT 12.7 H (10.0-12.5) sec INR 1.2 H (<1.2) Sodium 131 L (137-145) mmol/L Potassium 3.1 L (3.5-5.1) mmol/L Chloride 97 L (98-107) mmol/L BUN 32 H (7-17) mg/dL Creatinine 1.27 H (0.52-1.04) mg/dL Glucose 373 H (74-99) mg/dL Assessment and Plan Assessment: I have seen and evaluated the patient today. I Discussed the case with the resident and agree with the resident's findings I edited the assessment and plan as necessary as documented in the resident's note
[2024-05-17 06:54] LABS: Appearance,Urine Cloudy (Clear); Bacteria,Urine Many /hpf; Bilirubin,Urine Negative (Negative); Blood,Urine Moderate (Negative); Budding Yeast,Urine Many /hpf; Color,Urine Colorless; Glucose,Urine (UA) 4+ (Negative); Ketones,Urine Negative (Negative); Leukocyte Esterase,Urine Trace (Negative); Mucus,Urine Rare /hpf; Nitrite,Urine Negative (Negative); PH, Urine 6.5 (5.0-8.0); Protein,Urine 2+ (Negative); RBC,Urine 2 /hpf (0-5); Specific Gravity,Urine 1.013 (1.001-1.035); Squamous Epithelial Cell,Urine <1 /hpf (0-4); Urobilinogen,Urine <2.0 mg/dL (<2.0); WBC,Urine 4 /hpf (0-5)
[2024-05-17] MEDS ORDERED: ALPRAZolam 0.5 MG TAB PO PRN (07:19)
[2024-05-17] MEDS ORDERED: PROCHLORPERAZINE 10 MG TAB PO PRN (07:19)
[2024-05-17] MEDS ORDERED: ACETAMINOPHEN TAB 325 MG TAB PO PRN (07:19)
[2024-05-17] MEDS ORDERED: DEXTROSE 50% SYRINGE 50 ML IVP PRN ×2 (07:23)
[2024-05-17] MEDS ORDERED: cloNIDine HCL 0.2 MG TAB PO PRN (07:27)
[2024-05-17 08:28] LABS: Glucose,Whole Blood 303 mg/dL (70-110)
[2024-05-17] MEDS ORDERED: ATORVASTATIN 80 MG TAB PO SCH ×2 (09:00→21:00)
[2024-05-17] MEDS: ONDANSETRON 4 MG/2 ML VIAL IVP PRN (09:22)
[2024-05-17] MEDS: INSULIN ASPART (NovoLOG) 100 UNIT/ML VIAL SQ SCH (09:22)
[2024-05-17] MEDS: APIXABAN 5 MG TAB PO SCH (11:26)
[2024-05-17] MEDS: dexAMETHasone 4 MG TAB PO SCH (11:26)
[2024-05-17] MEDS: PANTOPRAZOLE 40 MG TABLET PO SCH (11:26)
[2024-05-17] MEDS: lisinopriL 20 MG TAB PO SCH (11:26)
[2024-05-17] MEDS: hydrALAZINE HCL 25 MG TAB PO SCH (11:27)
[2024-05-17] MEDS: NYSTATIN 100,000 UNIT/ML SUSP 500,000 UNIT/5 ML CUP PO SCH (11:29)
[2024-05-17] MEDS: ANASTROZOLE 1 MG TAB PO SCH (11:29)
[2024-05-17 12:34] LABS: Glucose,Whole Blood 245 mg/dL (70-110)
--- NOTE | 2024-05-17 13:32 | P.DS ---
Providers Date of admission: 05/17/24 04:18 Expected date of discharge: 05/17/24 Attending physician: Cindi Melissa MD Consults: 05/17/24 04:18 Consult Physician Routine Consulting Provider: Jose Angel De Jesus Consult Reason/Comments: weakness,, dehydration, metastatic cancer Do you want consulting provider notified?: Yes [facility] Course: Discharge Diagnosis: Nausea and weakness likely due to dehydration and malnutrition Prerenal azotemia likely due to dehydration hypokalemia and hyponatremia CKD 3 stable Oral candidiasis Type 2 diabetes, with hyperglycemia Hypertensive urgency Small cell lung cancer with mets to the cerebellum Hospital Course: 73-year-old female with 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 Chest x-ray sternotomy changes in the right chest port and mild flattening of the diaphragms which can be seen in COPD changes, otherwise no acute cardiopulmonary abnormality. EKG shows first-degree AV block [place] interval 223 ms, rate of 82, widened QRS at 145 ms, left ventricular hypertrophy, notable ST depressions on V1 and V2, normal QTc of 477 ms. BC 8 hemoglobin 15.5 hematocrit 46.5 platelet 168 PT 12.7 PTT 24.4 INR 1.2 sodium 131 potassium 3.1 chloride 97 BUN 32 creatinine 1.27 glucose 373 lactic acid 1.3. Influenza, RSV, and COVID PCR not detected. While in the ED, patient had elevated blood pressure. Potassium was replaced. Nausea vomiting improved. Patient requesting to go home, follow-up with radiation oncology tomorrow. She also has close follow-up with PCP and oncology, and understands that she needs repeat BMP outpatient. Hydralazine frequency increased for better blood pressure control. Patient seen and examined at bedside. Vital signs reviewed and stable. General: non toxic, no distress, appears at stated age, normal weight Derm: no unusual rashes/lesions, warm Head: atraumatic, normocephalic, symmetric Eyes: EOMI, no lid lag, anicteric sclera, pupils equal round reactive to light ENT: Nose and ears atraumatic Neck: No cervical lymphadenopathy, trachea midline, supple Mouth: no lip lesion, mucus membranes moist, white plaques seen on tongue, buccal mucosa, and palate Cardiovascular: S1S2 reg, no murmur, Lungs: CTA bilateral, no rhonchi, no rales, no accessory muscle use Abdominal: soft, nontender to palpation, no guarding Ext: muscle strength 5 out of 5 in all 4 extremities grossly, no gross muscle atrophy, no contractures, positive dorsalis pedis pulse bilateral, no edema, toenail removed on right big toe Neuro: CN II-XI grossly intact, no gross focal neuro deficits Psych: Alert, oriented, appropriate affect and mood A total of 33 minutes of time were spent preparing this complex discharge summary. Patient was discharged on 05/17/24 at 1328. Patient Condition at Discharge: Stable Plan - Discharge Summary New Discharge Prescriptions: New Nystatin 100,000 Unit/ml Susp [Mycostatin Oral Susp] 500,000 unit PO QID #140 ml Continue Rosuvastatin Calcium [Crestor] 40 mg PO DAILY oxyBUTYnin chloride [Ditropan] 5 mg PO DAILY Esomeprazole Magnesium [NexIUM] 40 mg PO DAILY Acetaminophen Tab [Tylenol] 650 mg PO Q6HR PRN tab PRN Reason: Fever And/ Or Pain Apixaban [Eliquis] 5 mg PO BID Enalapril [Vasotec] 20 mg PO BID Dapagliflozin Propanediol [Farxiga] 5 mg PO DAILY Anastrozole 1 mg PO DAILY ALPRAZolam [Xanax] 0.5 mg PO BID PRN PRN Reason: Anxiety Potassium Chloride ER [K-Dur 20] 20 meq PO BID Escitalopram [Lexapro] 20 mg PO DAILY Furosemide [Lasix] 20 mg PO BID Insulin Degludec [Tresiba Flextouch U-100 Pen] 15 - 20 units SQ HS dexAMETHasone [Decadron] See Taper PO DIRECTED Prochlorperazine [Compazine] 10 mg PO Q6H PRN #30 tab PRN Reason: Nausea Changed hydrALAZINE HCL 25 mg PO TID #0 Discharge Medication List Anastrozole 1 mg PO DAILY 11/20/23 [History] ALPRAZolam [Xanax] 0.5 mg PO BID PRN 12/20/23 [History] Acetaminophen Tab [Tylenol] 650 mg PO Q6HR PRN tab 12/23/23 [Rx] Escitalopram [Lexapro] 20 mg PO DAILY 12/23/23 [History] Esomeprazole Magnesium [NexIUM] 40 mg PO DAILY 12/23/23 [History] Potassium Chloride ER [K-Dur 20] 20 meq PO BID 12/23/23 [History] Rosuvastatin Calcium [Crestor] 40 mg PO DAILY 12/23/23 [History] oxyBUTYnin chloride [Ditropan] 5 mg PO DAILY 12/23/23 [History] Apixaban [Eliquis] 5 mg PO BID 01/10/24 [History] Furosemide [Lasix] 20 mg PO BID 01/10/24 [History] Dapagliflozin Propanediol [Farxiga] 5 mg PO DAILY 05/05/24 [History] Enalapril [Vasotec] 20 mg PO BID 05/05/24 [History] Insulin Degludec [Tresiba Flextouch U-100 Pen] 15 - 20 units SQ HS 05/05/24 [History] dexAMETHasone [Decadron] See Taper PO DIRECTED 05/05/24 [History] Prochlorperazine [Compazine] 10 mg PO Q6H PRN #30 tab 05/06/24 [Rx] Nystatin 100,000 Unit/ml Susp [Mycostatin Oral Susp] 500,000 unit PO QID #140 ml 05/17/24 [Rx] hydrALAZINE HCL 25 mg PO TID #0 05/17/24 [Rx] Follow up Appointment(s)/Referral(s): Jaden Barajas DO [Primary Care Provider] - 1-2 days Patient Instructions/Handouts: Hypokalemia (DC), Acute Nausea and Vomiting (DC) Activity/Diet/Wound Care/Special Instructions: Please see your PCP and repeat blood work to check your potassium. Discharge Disposition: HOME SELF-CARE
[2024-05-17] MEDS ORDERED: INSULIN DETEMIR (LEVEMIR) 100 UNIT/ML SYR SQ SCH (21:00)
[2024-05-18] MEDS ORDERED: ESCITALOPRAM 20 MG TAB PO SCH (09:00)
== END 2024-05-17 13:54 | disposition home or self-care (01) ==
LOC: EC 02:07 → 5NMEDONC 04:18
PROVIDERS: ADMIT Internal Medicine; ATTEND Internal Medicine
DX: R53.1 Weakness (principal); I16.0 Hypertensive urgency; E46 Unspecified protein-calorie malnutrition; C34.90 Malignant neoplasm of unspecified part of unspecified bronchus or lung; C79.31 Secondary malignant neoplasm of brain; E87.1 Hypo-osmolality and hyponatremia; E87.6 Hypokalemia; E86.0 Dehydration; I13.10 Hypertensive heart and chronic kidney disease without heart failure, with stage 1 through stage 4 chronic kidney disease, or unspecified chronic kidney disease; E11.22 Type 2 diabetes mellitus with diabetic chronic kidney disease; N18.30 Chronic kidney disease, stage 3 unspecified; E11.65 Type 2 diabetes mellitus with hyperglycemia; E78.5 Hyperlipidemia, unspecified; I44.0 Atrioventricular block, first degree; I45.10 Unspecified right bundle-branch block; I48.0 Paroxysmal atrial fibrillation; I48.92 Unspecified atrial flutter; J44.9 Chronic obstructive pulmonary disease, unspecified; E87.8 Other disorders of electrolyte and fluid balance, not elsewhere classified; B37.0 Candidal stomatitis; F17.210 Nicotine dependence, cigarettes, uncomplicated; Z79.811 Long term (current) use of aromatase inhibitors; Z79.01 Long term (current) use of anticoagulants; Z79.84 Long term (current) use of oral hypoglycemic drugs; Z79.4 Long term (current) use of insulin; Z79.899 Other long term (current) drug therapy; Z88.5 Allergy status to narcotic agent; Z88.8 Allergy status to other drugs, medicaments and biological substances; Z91.048 Other nonmedicinal substance allergy status; Z92.21 Personal history of antineoplastic chemotherapy; Z11.52 Encounter for screening for COVID-19; Z11.59 Encounter for screening for other viral diseases
CPT/HCPCS: 36415; 93005; 80053; 82150; 83605; 83690; 83735; 85025; 85610; 85730; 81001; 87636; 71046; G0378; J8540; J1200; J2765; J2405; S0170; 96361; 96374; 96375; 99285

== ENCOUNTER → 2024-06-19 | Outpatient (CLI) | payer MEDICARE, OTHER ==
[2024-06-19 13:46] LABS: African American GFR (CKD) 58 (>60 ml/min/1.73 sqM); Blood Urea Nitrogen 16 mg/dL (7-17); Non-African American GFR(CKD) 50 (>60 ml/min/1.73 sqM)
--- NOTE | 2024-06-19 15:34 | CT ---
EXAMINATION TYPE: CT abdomen pelvis w con CT DLP: 881.4 mGycm, Automated exposure control for dose reduction was used. DATE OF EXAM: 06/19/2024 3:07 PM COMPARISON: 04/27/2024 CLINICAL INDICATION: Female, 74 years old with history of Attn: liver; C34.91 LUNG CANCER; R94.5 abn liver f; Abnormal labs/liver function TECHNIQUE: Axial CT abdomen pelvis w con;Sagittal and coronal reformats were created on a separate w orkstation. Contrast used:80 mL of Isovue 300 with IV Contrast, (none if empty) Oral contrast used: with Oral Contrast (none if empty) FINDINGS: LOWER CHEST: New pulmonary nodules examples includes. right middle lobe 7 mm, lingula measuring 8 mm right lower lobe measuring 5 mm ABDOMEN LIVER: Scattered hypoattenuating lesions are seen throughout the liver. Example includes 20 mm lesion series 6 image 21 in the right hepatic lobe as well as a right hepatic lobe 27 mm lesion. Left hepat ic lobe measuring up to 28 mm on image 14 GALLBLADDER AND BILE DUCTS: Unremarkable. PANCREAS: Unremarkable. SPLEEN: Unremarkable. ADRENAL GLANDS: Stable appearance of the adrenal glands with some mild nodularity. KIDNEYS AND URETERS: No evidence of hydronephrosis or renal calculus. The ureters are unremarkable. PELVIS BLADDER: Unremarkable REPRODUCTIVE: Unremarkable. ABDOMEN & PELVIS STOMACH AND BOWEL: No evidence of bowel obstruction. Scattered colonic diverticula. PERITONEUM/RETROPERITONEUM: No evidence of pneumoperitoneum or free fluid. VASCULATURE: Saccular aneurysm at the level of the kidneys similar prior which another more inferiorl y. Inferiorly measuring 41 x 50 mm. MUSCULOSKELETAL: No acute osseous abnormalities fixation changes to the lower spine. Enlarging LYMPH NODES: No gross evidence for lymphadenopathy. SOFT TISSUE/ABDOMINAL WALL: Unremarkable IMPRESSION: 1. Evidence of progression of metastatic disease more than 20 suspected lesions in the liver and new pulmonary nodules. 2. Stable saccular aneurysms of the abdominal aorta.
== END | disposition home or self-care (01) ==
LOC: RADCTMAIN 12:48
PROVIDERS: ATTEND Internal Medicine
DX: C34.91 Malignant neoplasm of unspecified part of right bronchus or lung (principal); C50.412 Malignant neoplasm of upper-outer quadrant of left female breast; I71.40 Abdominal aortic aneurysm, without rupture, unspecified; R94.5 Abnormal results of liver function studies; E11.9 Type 2 diabetes mellitus without complications; J44.9 Chronic obstructive pulmonary disease, unspecified
CPT/HCPCS: 36415; 74177; 82565; 84520

== ENCOUNTER → 2024-06-26 | Outpatient (CLI) | payer MEDICARE, OTHER ==
[2024-06-26 09:47] LABS: African American GFR (CKD) 60 (>60 ml/min/1.73 sqM); Blood Urea Nitrogen 11 mg/dL (7-17); Non-African American GFR(CKD) 52 (>60 ml/min/1.73 sqM)
--- NOTE | 2024-06-26 10:21 | CT ---
EXAMINATION TYPE: CT chest w con CT DLP: 333 mGycm, Automated exposure control for dose reduction was used. DATE OF EXAM: 06/26/2024 10:04 AM COMPARISON: 04/27/2024 CLINICAL INDICATION: Female, 74 years old with history of C364.91 CHEST CANCER, lung ca TECHNIQUE: Multiple axial images were obtained through the chest. Sagittal and coronal reformats were created for review. Contrast used:80 mL of Isovue 300 with IV Contrast (None if empty) Oral contrast used: (None if empty) FINDINGS: LUNGS/ PLEURA: Enlarging right perihilar mass now measuring 15 x 29, previously 31 x 30 mm. Multiple areas of consolidation in the lung periphery anteriorly in the left lung possibly atelectasis. Other pulmonary nodules, examples include: * Left upper lobe 9 mm series 3 image 24, * Left lower lung pulmonary nodule measuring up to 7 mm series 3 image 41 * right lower lung pulmonary nodule measuring up to 7 mm series 3 image 43, * right middle lobe pulmonary nodule measuring 10 mm series 3 image 35 * right upper lung pulmonary nodule measuring 9 mm series 326 AIRWAY: Patent and unremarkable. HEART: Size within normal limits. Atherosclerosis of the coronary arteries. MEDIASTINUM: No gross evidence of adenopathy. VASCULATURE: Similar atherosclerotic focal outpouching in the most inferior aspect of the images dalila uring up to 4.6 cm. [id number] terminating in the superior vena cava. MUSCULOSKELETAL: No acute osseous abnormalities, sternotomy wires are present. Sternotomy wires are p resent. SOFT TISSUES/LYMPH NODES: Unremarkable. LOWER NECK: No significant findings. UPPER ABDOMEN: Heterogenous appearance to liver with multiple low attenuating areas compatible with m etastatic disease. Findings have increased in size from prior. Simple appearing right renal cyst. Rig ht perinephric soft tissue probable lymph node measuring 8 mm IMPRESSION: 1. Progression of disease with enlarging right perihilar mass multiple enlarging pulmonary nodules a s well as enlarging hepatic metastatic disease. 2. Similar focal outpouching of the abdominal aorta likely representing atherosclerotic ulcer with a sourav measuring up to 4.6 cm.
== END | disposition home or self-care (01) ==
LOC: RADCTMAIN 08:54
PROVIDERS: ATTEND Internal Medicine
DX: C34.91 Malignant neoplasm of unspecified part of right bronchus or lung
CPT/HCPCS: 36415; 71260; 82565; 84520

== ENCOUNTER 2024-07-06 11:58 | Emergency (ER) | payer MEDICARE, OTHER ==
--- NOTE | 2024-07-06 12:52 | ED ---
Chest Pain HPI - General Source: patient, RN notes reviewed Mode of arrival: wheelchair Limitations: no limitations <Maribeth Tucker - Last Filed: 07/06/24 12:51> <Radha Marks - Last Filed: 07/06/24 18:49> - General Chief Complaint: Chest Pain Stated Complaint: abd/back pain Time Seen by Provider: 07/06/24 12:51 - History of Present Illness Initial Comments: Quick note: 74-year-old female presented the ER with a chief complaint of chest discomfort. Patient states pain started this morning and has radiation to her back. She describes it as stabbing in nature. Patient does have lung cancer and is currently following up with . Last chemo treatment approximately 1 month ago. She also reports a headache and dizziness. Chronic peripheral edema. (Maribeth Tucker) 74-year-old female presents emergency department accompanied by her and daughter for chief complaint of chest discomfort that has been intermittent starting this morning with radiation into her back. She describes it as a stabbing sensation. Currently patient is denying symptoms of chest pain and s tates that it has not recurred over the past few hours. Patient does have a port in place and is being evaluated for metastatic lung cancer. She reports a headache. Patient is on Eliquis for history of cardiac myxoma. (Rdaha Marks) - Related Data Home Medications Medication Instructions Recorded Confirmed Anastrozole 1 mg PO DAILY 11/20/23 05/17/24 ALPRAZolam [Xanax] 0.5 mg PO BID PRN 12/20/23 05/17/24 Escitalopram [Lexapro] 20 mg PO DAILY 12/23/23 05/17/24 Esomeprazole Magnesium [NexIUM] 40 mg PO DAILY 12/23/23 05/17/24 Potassium Chloride ER [K-Dur 20] 20 meq PO BID 12/23/23 05/17/24 Rosuvastatin Calcium [Crestor] 40 mg PO DAILY 12/23/23 05/17/24 oxyBUTYnin chloride [Ditropan] 5 mg PO DAILY 12/23/23 05/17/24 Apixaban [Eliquis] 5 mg PO BID 01/10/24 05/17/24 Furosemide [Lasix] 20 mg PO BID 01/10/24 05/17/24 Dapagliflozin Propanediol [Farxiga] 5 mg PO DAILY 05/05/24 05/17/24 Enalapril [Vasotec] 20 mg PO BID 05/05/24 05/17/24 Insulin Degludec [Tresiba 15 - 20 units SQ HS 05/05/24 05/17/24 Flextouch U-100 Pen] dexAMETHasone [Decadron] See Taper PO DIRECTED 05/05/24 05/17/24 Previous Rx's Medication Instructions Recorded Acetaminophen Tab [Tylenol] 650 mg PO Q6HR PRN tab 12/23/23 Prochlorperazine [Compazine] 10 mg PO Q6H PRN #30 tab 05/06/24 Nystatin 100,000 Unit/ml Susp 500,000 unit PO QID #140 ml 05/17/24 [Mycostatin Oral Susp] hydrALAZINE HCL 25 mg PO TID #0 05/17/24 Allergies Allergy/AdvReac Type Severity Reaction Status Date / Time dog dander Allergy Runny nose Verified 07/06/24 12:24 codeine AdvReac Chest Pain Verified 07/06/24 12:24 empagliflozin AdvReac severe UTI Verified 07/06/24 12:24 [From Jardiance] metformin AdvReac Diarrhea Verified 07/06/24 12:24 pioglitazone [From Actos] AdvReac denies Verified 07/06/24 12:24 allergy semaglutide [From Ozempic] AdvReac denies Verified 07/06/24 12:24 allergy sitagliptin [From Januvia] AdvReac severe UTI Verified 07/06/24 12:24 dogs,horses,mold Allergy Runny nose Uncoded 07/06/24 12:24 Review of Systems ROS Other: All systems not noted in ROS Statement are negative. <Maribeth Tucker - Last Filed: 07/06/24 12:51> ROS Other: All systems not noted in ROS Statement are negative. <Radha Marks - Last Filed: 07/06/24 18:49> ROS Statement: Those systems with pertinent positive or pertinent negative responses have been documented in the HPI. 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 murmur. hx breast cancer- radiation complete 04/2023. current spot on lung NO LEFT ARM use. 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 Pt has claustrophobia. Past Psychological History: Anxiety, Panic Disorder Smoking Status: Current every day smoker, Current some day smoker Past Alcohol Use History: None Reported Past Drug Use History: None Reported - Past Family History Mother Family Medical History: Diabetes Mellitus, Hyperlipidemia, Hypertension Sister(s) Family Medical History: Cancer Additional Family Medical History / Comment(s): Cervical cancer. She is . <Maribeth Tucker - Last Filed: 07/06/24 12:51> General Exam Limitations: no limitations <Maribeth Tucker - Last Filed: 07/06/24 12:51> General appearance: alert, in no apparent distress Head exam: Present: atraumatic, normocephalic, normal inspection Eye exam: Present: normal appearance, PERRL, EOMI. Absent: scleral icterus, conjunctival injection, periorbital swelling Neck exam: Present: normal inspection. Absent: tenderness, meningismus, lymphadenopathy Respiratory exam: Present: normal lung sounds bilaterally. Absent: respiratory distress, wheezes, rales, rhonchi, stridor Cardiovascular Exam: Present: regular rate, normal rhythm, normal heart sounds. Absent: systolic murmur, diastolic murmur, rubs, gallop, clicks GI/Abdominal exam: Present: soft, normal bowel sounds. Absent: distended, tenderness, guarding, rebound, rigid Extremities exam: Present: normal inspection, full ROM, normal capillary refill. Absent: tenderness, pedal edema, joint swelling, calf tenderness Back exam: Present: normal inspection Skin exam: Present: warm, dry, intact, normal color. Absent: rash <Radha Marks - Last Filed: 07/06/24 18:49> - General Exam Comments Initial Comments: Visual Physical Exam Vital signs reviewed General: Well-appearing, nontoxic, no acute distress. Head: Normocephalic, atraumatic Eyes: PERRLA, EOMI ENT: Airway patent Chest: Nonlabored breathing Skin: No visual rash, normal skin tone Neuro: Alert and oriented 3 Musculoskeletal: No gross abnormalities (Maribeth Tucker) Course Vital Signs 07/06/24 07/06/24 07/06/24 12:22 15:46 18:23 Temperature 98.1 F 98.6 F Pulse Rate 82 79 78 Respiratory 20 18 18 Rate Blood Pressure 120/69 121/74 134/78 O2 Sat by Pulse 99 97 98 Oximetry Chest Pain MDM <Maribeth Tucker - Last Filed: 07/06/24 12:51> <Radha Marks - Last Filed: 07/06/24 18:49> - MDM I performed the quick note portion of this chart. Electronically signed by Maribeth Tucker PA-C (Maribeth Tucker) Was pt. sent in by a medical professional or institution (VLADIMIR Boone, CONTINUITY COORDINATOR, urgent care, hospital, or senior living...) When possible be specific @ -No Did you speak to anyone other than the patient for history (EMS, parent, family, police, friend...)? What history was obtained from this source @ -Spoke to the patient's daughter and at bedside states that patient was complaining of chest pain that started this morning with radiation into her back. Did you review nursing and triage notes (agree or disagree)? Why? @ -I reviewed and agree with nursing and triage notes Were old charts reviewed (outside hosp., previous admission, EMS record, old EKG, old radiological studies, urgent care reports/EKG's, senior living records)? Report findings @ -No old charts were reviewed Differential Diagnosis (chest pain, altered mental status, abdominal pain women, abdominal pain men, vaginal bleeding, weakness, fever, dyspnea, syncope, headache, dizziness, GI bleed, back pain, seizure, CVA, palpatations, mental health, musculoskeletal)? @ -Differential Chest Pain: Stable Angina, Unstable Angina, STEMI, NSTEMI Aortic Dissection, Pneumothorax, Musculoskeletal, Esophageal Spasm GERD, Cholecystitis, Pancreatitis, Zoster, this is not meant to be an all-inclusive list. EKG interpreted by me (3pts min.). @ -EKG completed at 1717 revealed sinus rhythm with ventricular rate of 82, LA interval 136, QTc 500. No acute signs of ischemia. EKG completed at 1233 sinus rhythm with a ventricular rate of 82, parable 136, QTc 495. No acute signs of ischemia X-rays interpreted by me (1pt min.). @ -chest x-ray reveals a large area of mass or consolidation in the right upper lobe with tiny bilateral pleural effusions CT interpreted by me (1pt min.). @ -None done U/S interpreted by me (1pt. min.). @ -None done What testing was considered but not performed or refused? (CT, X-rays, U/S, labs)? Why? @ -None What meds were considered but not given or refused? Why? @ -None Did you discuss the management of the patient with other professionals (professionals i.e. , PA, CONTINUITY COORDINATOR, lab, RT, psych nurse, elementary school social worker, varnish cooker, teacher, intelligence support officer, upper caser)? Give summary @ -No Was smoking cessation discussed for >3mins.? @ -No Was critical care preformed (if so, how long)? @ -No Were there social determinants of health that impacted care today? How? (Homelessness, low income, unemployed, alcoholism, drug addiction, transportation, low edu. Level, literacy, decrease access to med. care, detention, rehab)? @ -No Was there de-escalation of care discussed even if they declined (Discuss DNR or withdrawal of care, Hospice)? DNR status @ -No What co-morbidities impacted this encounter? (DM, HTN, Smoking, COPD, CAD, Cancer, CVA, ARF, Chemo, Hep., AIDS, mental health diagnosis, sleep apnea, morbid obesity)? @ -None Was patient admitted / discharged? Hospital course, mention meds given and route, prescriptions, significant lab abnormalities, going to OR and other pertinent info. @ -Discharged. 74-year-old female chest pain. Patient was originally evaluated as a quick note where she was sent for chest x-ray and laboratory studies. EKG is within sinus rhythm. On my evaluation the patient she is resting comfortably no signs acute distress. She states that she has not been experiencing chest pain over the past few hours. DC unremarkable, coagulation profile reveals elevated INR 1.2 which is consistent with Eliquis use. CMP reveals hypokalemia of 2.9, mild hypomagnesemia of 1.5, elevated LFTs including AST of 81, ALT 39, alkaline phosphatase of 326, troponin not elevated at 0.024, BNP of 1210. The patient at bedside option to stay in the hospital for admission observation with cardiology on consult however patient and family are declining at this time. However they state that they will stay for a repeat troponin. Patient's repeat troponin reveals a elevation compared to previous at 0.028. Strong discussion with patient at bedside recommend that she stay for further evaluation however patient and family are adamant about the patient being discharged home. They state that they have been in the emergency department for for too long and they will not spend the evening in the hallway. Patient is requesting discharge at this time. All questions answered at bedside and strict return parameters josé miguel with the patient she has verbalized understanding. Case discussed with Dr. Tijerina Undiagnosed new problem with uncertain prognosis? @ -No Drug Therapy requiring intensive monitoring for toxicity (Heparin, Nitro, Insulin, Cardizem)? @ -No Were any procedures done? @ -No Diagnosis/symptom? @ -chest pain Acute, or Chronic, or Acute on Chronic? @ -Acute Uncomplicated (without systemic symptoms) or Complicated (systemic symptoms)? @ -Uncomplicated Side effects of treatment? @ -No Exacerbation, Progression, or Severe Exacerbation? @ -No Poses a threat to life or bodily function? How? (Chest pain, [place], [place], pneumonia, PE, COPD, DKA, ARF, appy, cholecystitis, CVA, Diverticulitis, Homicidal, Suicidal, threat to staff... and all critical care pts) @ -No (Radha Marks) Disposition <Maribeth Tucker - Last Filed: 07/06/24 12:51> Is patient prescribed a controlled substance at d/c from ED?: No Time of Disposition: 18:05 <Radha Marks - Last Filed: 09/23/24 18:49> Clinical Impression: Chest pain, Cough, History of lung cancer Disposition: HOME SELF-CARE Condition: Stable Instructions (If sedation given, give patient instructions): Chest Pain (ED) Additional Instructions: Return to the emergency department for any new or worsening symptoms. Recommend that you follow-up as scheduled with oncologist for further evaluation. Referrals: None,Stated [REFERRING] - 1-2 days
--- NOTE | 2024-07-06 13:19 | XR ---
EXAMINATION TYPE: XR chest 2V DATE OF EXAM: 07/06/2024 COMPARISON: 05/17/2024 TECHNIQUE: PA and lateral views submitted. HISTORY: Chest pain FINDINGS: A right-sided Mediport catheter with the tip overlying the cavoatrial junction. Large area of consoli dation or mass in the right hilum. Patchy interstitial pattern could represent chronic lung disease o r interstitial pneumonitis. Tiny bilateral pleural effusion. No pneumothorax. Median sternotomy donnelly es. Heart size normal. IMPRESSION: 1. There is large area of mass or consolidation in the right upper lobe 2. Tiny bilateral pleural effusion. [facility], , 07/06/2024 1:17 PM
[2024-07-06 14:00] LABS: Anisocytosis Slight; Basophils % (A) 1 %; Eosinophils # (A) 0.1 k/uL (0-0.7); Eosinophils % (A) 1 %; HCT 35.3 % (34.0-46.0); Lymphocytes # (A) 0.8 k/uL (1.0-4.8); Lymphocytes % (A) 12 %; MCH 32.9 pg (25.0-35.0); MCV 99.7 fL (80.0-100.0); Macrocytosis Slight; Monocytes # (A) 0.4 k/uL (0-1.0); Monocytes % (A) 6 %; Neutrophils # (A) 5.3 k/uL (1.3-7.7); Neutrophils % (A) 79 %; Platelet Count 182 k/uL (150-450); RBC 3.55 m/uL (3.80-5.40); RDW 16.6 % (11.5-15.5); WBC 6.7 k/uL (3.8-10.6)
[2024-07-06 14:05] LABS: HGB 11.7 gm/dL (11.4-16.0)
[2024-07-06 14:07] LABS: ALT 39 U/L (4-34); AST 81 U/L (14-36); African American GFR (CKD) 66 (>60 ml/min/1.73 sqM); Albumin 2.5 g/dL (3.5-5.0); Alkaline Phosphatase 326 U/L (38-126); Anion Gap 4 mmol/L; Blood Urea Nitrogen 8 mg/dL (7-17); Calcium 8.5 mg/dL (8.4-10.2); Carbon Dioxide 28 mmol/L (22-30); Chloride 105 mmol/L (98-107); Glucose 118 mg/dL (74-99); Magnesium 1.5 mg/dL (1.6-2.3); Non-African American GFR(CKD) 57 (>60 ml/min/1.73 sqM); Potassium 2.9 mmol/L (3.5-5.1); Sodium 137 mmol/L (137-145); Total Bilirubin 0.9 mg/dL (0.2-1.3)
[2024-07-06 14:13] LABS: NT-Pro-B-Type Natriuretic Pept 1210 pg/mL
[2024-07-06 14:15] LABS: INR 1.2 (<1.2); Partial Thromboplastin Time 33.2 sec (22.0-30.0); Prothrombin Time 13.2 sec (10.0-12.5)
[2024-07-06 15:48] VITALS: RESP 18; TEMP 98.6
[2024-07-06] MEDS: MAGNESIUM OXIDE 400 MG TAB PO STA (16:20)
[2024-07-06] MEDS: POTASSIUM CHLORIDE ER 20 MEQ TAB.ER PO STA (16:21)
[2024-07-06 18:26] VITALS: BP 134/78; PULSE 78
== END 2024-07-06 18:26 | disposition home or self-care (01) ==
LOC: EC 11:58
DX: R07.89 Other chest pain (principal); R05.9 Cough, unspecified; R10.9 Unspecified abdominal pain; M54.50 Low back pain, unspecified; Z86.018 Personal history of other benign neoplasm; F17.200 Nicotine dependence, unspecified, uncomplicated; Z88.5 Allergy status to narcotic agent; Z88.8 Allergy status to other drugs, medicaments and biological substances; Z91.048 Other nonmedicinal substance allergy status
CPT/HCPCS: 36415; 71046; 80053; 83735; 83880; 84484; 85025; 85610; 85730; 87636; 93005; 99285

== ENCOUNTER → 2024-07-17 | Outpatient (CLI) | payer MEDICARE, OTHER ==
--- NOTE | 2024-07-17 12:50 | CT ---
EXAMINATION TYPE: CT brain wo/w con DATE OF EXAM: 07/17/2024 COMPARISON: 07/28/2024 HISTORY: Secondary malignant neoplasm of brain, hx lung/breast ca CT DLP: 2249.70 mGycm Automated exposure control for dose reduction was used. CONTRAST: CT scan of the head is performed with IV Contrast, patient injected with 80 mL of Isovue 300. FINDINGS: The ventricles, basal cisterns and sulci of the convexities are moderately enlarged consistent with m oderate generalized atrophy. There is moderate decreased density in the periventricular white matter consistent with chronic ische abdulaziz white matter demyelination. There is no acute bleed or mass effect The enhancing nodule in the roof of the fourth ventricle/midline cerebellum seen on the prior contras t CT is less well delineated without contrast but is unchanged in size. No new abnormalities are seen. The intraorbital contents appear normal and symmetric. Visualized paranasal sinuses and mastoid air cells are well aerated. IMPRESSION: 1. No change in the 1.2 cm mass in the cerebellum as described above. No new lesion seen. 2. Moderate atrophy and chronic ischemic white matter demyelination. [facility], , 07/17/2024 12:47 PM
== END | disposition home or self-care (01) ==
LOC: RADCTMAIN 10:40
PROVIDERS: ATTEND Radiology Radiation Oncology
DX: C79.31 Secondary malignant neoplasm of brain (principal); C34.91 Malignant neoplasm of unspecified part of right bronchus or lung; I67.82 Cerebral ischemia; R90.82 White matter disease, unspecified; G31.9 Degenerative disease of nervous system, unspecified; Z85.3 Personal history of malignant neoplasm of breast
CPT/HCPCS: 70470; Q9967

== ENCOUNTER → 2024-07-23 | Outpatient (CLI) | payer MEDICARE, OTHER ==
--- NOTE | 2024-07-23 14:45 | US ---
EXAMINATION TYPE: US venous doppler duplex LE LT DATE OF EXAM: 07/23/2024 2:20 PM COMPARISON: NONE CLINICAL INDICATION: Female, 74 years old with history of R22.42 SWELLING MASS LUMP; bruising lower l eft calf, no h/o DVT TECHNIQUE: The lower extremity deep venous system is examined utilizing real time linear array sonog deuce with graded compression, color doppler sonography, and spectral doppler. SIDE PERFORMED: Left FINDINGS: VESSELS IMAGED: Common Femoral Vein Deep Femoral Vein Greater Saphenous Vein * Femoral Vein Popliteal Vein Small Saphenous Vein * Proximal Calf Veins (* superficial vessels) Left Leg: Negative for DVT Spoke with office about negative findings Grayscale, color doppler, spectral doppler imaging performed of the deep veins of the lower extremiti es. Provided images show extensive subcutaneous edema throughout the region of lower calf discoloration. IMPRESSION: 1. No evidence for DVT within the left lower extremity imaged from the groin to the knee. 2. Extensive subcutaneous edema in the region of lower calf discoloration. [facility], , 07/23/2024 2:43 PM
== END | disposition home or self-care (01) ==
LOC: RADUSWWP 13:59
PROVIDERS: ATTEND Internal Medicine Hematology & Oncology
DX: R22.42 Localized swelling, mass and lump, left lower limb (principal)

== ENCOUNTER 2024-07-30 12:21 | Emergency (ER) | payer MEDICARE, OTHER ==
[2024-07-30 12:49] VITALS: TEMP 98.4
--- NOTE | 2024-07-30 13:38 | ED ---
General Adult HPI - General Source: patient, family, RN notes reviewed, old records reviewed Mode of arrival: wheelchair Limitations: no limitations <Bakari Lemos - Last Filed: 07/30/24 13:35> - General Source: patient, family, RN notes reviewed, old records reviewed Mode of arrival: wheelchair Limitations: no limitations <Bakari Yepez - Last Filed: 07/30/24 16:56> - General Chief complaint: Extremity Problem,Nontraumatic Stated complaint: L Leg Swelling Time Seen by Provider: 07/30/24 12:40 - History of Present Illness Initial comments: This is a 74-year-old female who presents to the emergency department complaining of anterior leg swelling on the left. Area is very tender according to the caregiver they may have banged it into something a while ago but is not sure. Patient states the area was a little darker red a day or 2 ago and has gotten an better. According to the patient they did have an ultrasound of the leg after they saw their oncologist and it was negative for DVT. Patient denies any fever chills. Patient states the pain is not getting worse. (Bakari Lemos) This is a 74-year-old female with left lower extremity pain (Bakari Yepez) - Related Data Home Medications Medication Instructions Recorded Confirmed Anastrozole 1 mg PO DAILY 11/20/23 07/30/24 Escitalopram [Lexapro] 20 mg PO DAILY 12/23/23 07/30/24 Esomeprazole Magnesium [NexIUM] 40 mg PO DAILY 12/23/23 07/30/24 Potassium Chloride ER [K-Dur 20] 20 meq PO DAILY 12/23/23 07/30/24 Rosuvastatin Calcium [Crestor] 40 mg PO DAILY 12/23/23 07/30/24 oxyBUTYnin chloride [Ditropan] 5 mg PO DAILY 12/23/23 07/30/24 Apixaban [Eliquis] 2.5 mg PO BID 01/10/24 07/30/24 Enalapril [Vasotec] 20 mg PO BID 05/05/24 07/30/24 Insulin Degludec [Tresiba 15 - 20 units SQ HS 05/05/24 07/30/24 Flextouch U-100 Pen] dexAMETHasone [Decadron] 1 mg PO BID 05/05/24 07/30/24 ALPRAZolam [Xanax] 0.25 mg PO BID 07/30/24 07/30/24 Furosemide [Lasix] 20 mg PO DAILY 07/30/24 07/30/24 Gabapentin [Neurontin] 300 mg PO DAILY 07/30/24 07/30/24 Insuln Asp Prt/Insulin Aspart See Protocol SQ AC-TID PRN 07/30/24 07/30/24 [NovoLOG MIX 70-30 VIAL] Lidocaine-Prilocaine Cream [Emla 1 applic TOPICAL DIRECTED PRN 07/30/24 07/30/24 Cream 2.5%/2.5%] Nystatin 100,000 Unit/ml Susp 400,000 unit PO QID 07/30/24 07/30/24 [Mycostatin Oral Susp] Ondansetron [Zofran] 4 - 8 mg PO Q4-6H PRN 07/30/24 07/30/24 hydrALAZINE HCL 25 mg PO BID 07/30/24 07/30/24 Previous Rx's Medication Instructions Recorded Prochlorperazine [Compazine] 10 mg PO Q6H PRN #30 tab 05/06/24 Allergies Allergy/AdvReac Type Severity Reaction Status Date / Time dog dander Allergy Runny nose Verified 07/30/24 14:47 codeine AdvReac Chest Pain Verified 07/30/24 14:47 empagliflozin AdvReac severe UTI Verified 07/30/24 14:47 [From Jardiance] metformin AdvReac Diarrhea Verified 07/30/24 14:47 pioglitazone [From Actos] AdvReac denies Verified 07/30/24 14:47 allergy semaglutide [From Ozempic] AdvReac denies Verified 07/30/24 14:47 allergy sitagliptin [From Januvia] AdvReac severe UTI Verified 07/30/24 14:47 dogs,horses,mold Allergy Runny nose Uncoded 07/30/24 14:47 Review of Systems ROS Other: All systems not noted in ROS Statement are negative. <Bakari Lemos - Last Filed: 07/30/24 13:35> ROS Other: All systems not noted in ROS Statement are negative. <Bakari Yepez - Last Filed: 07/30/24 16:56> ROS Statement: Those systems with pertinent positive or pertinent negative responses have been documented in the HPI. 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 murmur. hx breast cancer- radiation complete 04/2023. current spot on lung NO LEFT ARM use. 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 Pt has claustrophobia. Past Psychological History: Anxiety, Panic Disorder Smoking Status: Current every day smoker Past Alcohol Use History: None Reported Past Drug Use History: None Reported - Past Family History Mother Family Medical History: Diabetes Mellitus, Hyperlipidemia, Hypertension Sister(s) Family Medical History: Cancer Additional Family Medical History / Comment(s): Cervical cancer. She is . <Bakari Lemos - Last Filed: 07/30/24 13:35> General Exam Limitations: no limitations <Bakari Lemos - Last Filed: 07/30/24 13:35> General appearance: alert, in no apparent distress Head exam: Present: atraumatic, normocephalic, normal inspection Eye exam: Present: normal appearance, PERRL, EOMI. Absent: scleral icterus, conjunctival injection, periorbital swelling ENT exam: Present: normal exam, mucous membranes moist Neck exam: Present: normal inspection. Absent: tenderness, meningismus, lymphadenopathy Respiratory exam: Present: normal lung sounds bilaterally. Absent: respiratory distress, wheezes, rales, rhonchi, stridor Cardiovascular Exam: Present: regular rate, normal rhythm, normal heart sounds. Absent: systolic murmur, diastolic murmur, rubs, gallop, clicks GI/Abdominal exam: Present: soft, normal bowel sounds. Absent: distended, t enderness, guarding, rebound, rigid Extremities exam: Present: normal inspection, full ROM, normal capillary refill. Absent: tenderness, pedal edema, joint swelling, calf tenderness Back exam: Present: normal inspection Neurological exam: Present: alert, oriented X3, CN II-XII intact Psychiatric exam: Present: normal affect, normal mood Skin exam: Present: warm, dry, intact, normal color. Absent: rash <Bakari Yepez - Last Filed: 07/30/24 16:56> - General Exam Comments Initial Comments: GENERAL Patient is well-developed and well-nourished. Patient is in mild distress. EYES Patient's pupils are equal and round. Extraocular motion is intact SKIN Unremarkable NEURO The patient is alert and oriented A&Ox3 PYSCH Patient has normal interpersonal interactions. MUSCULOSKELETAL Left leg shows anterior ecchymosis and tender with probable a hematoma. Area is not warm and there is no erythema consistent with cellulitis (Bakari Lemos) Course <Bakari Yepez - Last Filed: 07/30/24 16:56> Vital Signs 07/30/24 12:45 Temperature 98.4 F Pulse Rate 68 Respiratory 18 Rate Blood Pressure 112/69 O2 Sat by Pulse 100 Oximetry - Reevaluation(s) Reevaluation #1: 07/30/24 16:55 Records reviewed (Bakari Yepez) Reevaluation #2: 07/30/24 16:55 Patient informed of results and questions answered (Bakari Yepez) Reevaluation #3: 07/30/24 16:55 Patient informed of results and questions answered (Bakari Yepez) Medical Decision Making - Lab Data Result diagrams: 07/30/24 14:08 07/30/24 14:08 - Radiology Data Radiology results: report reviewed (4. Headache and x-ray negative for DVT negative for traumatic injury), image reviewed <Bakari Yepez - Last Filed: 07/30/24 16:56> - Medical Decision Making 74 female to ER for evaluation coming in with left leg hematoma. Patient has negative findings here in the ER and can be discharged home (Bakari Yepez) - Lab Data Lab Results 07/30/24 07/30/24 Range/Units 14:08 14:08 WBC 3.6 L (3.8-10.6) k/uL RBC 3.35 L (3.80-5.40) m/uL Hgb 11.1 L (11.4-16.0) gm/dL Hct 34.6 (34.0-46.0) % MCV 103.2 H (80.0-100.0) fL MCH 33.1 (25.0-35.0) pg MCHC 32.0 (31.0-37.0) g/dL RDW 15.8 H (11.5-15.5) % Plt Count 99 L (150-450) k/uL MPV 9.2 Neutrophils % 65 % Lymphocytes % 21 % Monocytes % 9 % Eosinophils % 1 % Basophils % 0 % Neutrophils # 2.3 (1.3-7.7) k/uL Lymphocytes # 0.8 L (1.0-4.8) k/uL Monocytes # 0.3 (0-1.0) k/uL Eosinophils # 0.0 (0-0.7) k/uL Basophils # 0.0 (0-0.2) k/uL Hypochromasia Slight Macrocytosis Moderate Sodium 133 L (137-145) mmol/L Potassium 2.5 L* (3.5-5.1) mmol/L Chloride 104 (98-107) mmol/L Carbon Dioxide 24 (22-30) mmol/L Anion Gap 5 mmol/L BUN 17 (7-17) mg/dL Creatinine 0.99 (0.52-1.04) mg/dL Est GFR (CKD-EPI)AfAm 66 (>60 ml/min/1.73 sqM) Est GFR (CKD-EPI)NonAf 57 (>60 ml/min/1.73 sqM) Glucose 329 H (74-99) mg/dL Calcium 8.3 L (8.4-10.2) mg/dL Total Bilirubin 1.0 (0.2-1.3) mg/dL AST 72 H (14-36) U/L ALT 75 H (4-34) U/L Alkaline Phosphatase 650 H (38-126) U/L Total Protein 5.3 L (6.3-8.2) g/dL Albumin 2.9 L (3.5-5.0) g/dL Disposition <Bakari Lemos - Last Filed: 07/30/24 13:35> Is patient prescribed a controlled substance at d/c from ED?: No Time of Disposition: 17:00 <Bakari Yepez - Last Filed: 07/30/24 16:56> Clinical Impression: Hematoma of left lower leg Disposition: HOME SELF-CARE Condition: Good Instructions (If sedation given, give patient instructions): Hematoma (ED) Referrals: Jaden Barajas DO [Primary Care Provider] - 1-2 days
[2024-07-30 14:16] LABS: Basophils % (A) 0 %; Eosinophils % (A) 1 %; HCT 34.6 % (34.0-46.0); HGB 11.1 gm/dL (11.4-16.0); Hypochromasia Slight; Lymphocytes # (A) 0.8 k/uL (1.0-4.8); Lymphocytes % (A) 21 %; MCH 33.1 pg (25.0-35.0); MCV 103.2 fL (80.0-100.0); Macrocytosis Moderate; Mean Platelet Volume 9.2; Monocytes # (A) 0.3 k/uL (0-1.0); Monocytes % (A) 9 %; Neutrophils # (A) 2.3 k/uL (1.3-7.7); Neutrophils % (A) 65 %; RBC 3.35 m/uL (3.80-5.40); RDW 15.8 % (11.5-15.5); WBC 3.6 k/uL (3.8-10.6)
[2024-07-30] MEDS: HYDROmorphone 0.5 MG/0.5 ML SYRINGE IVP STA (14:31)
[2024-07-30 14:35] LABS: ALT 75 U/L (4-34); AST 72 U/L (14-36); African American GFR (CKD) 66 (>60 ml/min/1.73 sqM); Albumin 2.9 g/dL (3.5-5.0); Alkaline Phosphatase 650 U/L (38-126); Anion Gap 5 mmol/L; Blood Urea Nitrogen 17 mg/dL (7-17); Calcium 8.3 mg/dL (8.4-10.2); Carbon Dioxide 24 mmol/L (22-30); Chloride 104 mmol/L (98-107); Glucose 329 mg/dL (74-99); Non-African American GFR(CKD) 57 (>60 ml/min/1.73 sqM); Sodium 133 mmol/L (137-145); Total Protein 5.3 g/dL (6.3-8.2)
[2024-07-30 14:49] LABS: Potassium 2.5 mmol/L (3.5-5.1)
[2024-07-30 14:54] LABS: Platelet Count 99 k/uL (150-450)
--- NOTE | 2024-07-30 17:00 | US ---
EXAMINATION TYPE: US venous doppler duplex LE DATE OF EXAM: 07/30/2024 4:46 PM COMPARISON: NONE CLINICAL INDICATION: Female, 74 years old with history of dvt; left leg edema. lump/bruising left lat eral calf. patient on blood thinners TECHNIQUE: The lower extremity deep venous system is examined utilizing real time linear array sonog deuce with graded compression, color doppler sonography, and spectral doppler. SIDE PERFORMED: left FINDINGS: VESSELS IMAGED: Common Femoral Vein Deep Femoral Vein Greater Saphenous Vein * Femoral Vein Popliteal Vein Small Saphenous Vein * Proximal Calf Veins (* superficial vessels) Left Leg: No evidence of DVT. complex anechoic area left lateral calf within area of lump/bruising = 3.4 x 0.9 x 1.7cm Grayscale, color doppler, spectral doppler imaging performed of the deep veins of the lower extremiti es. IMPRESSION: 1. No ultrasound evidence of deep venous thrombosis left lower extremity. 2. There is a small subcutaneous heterogenous hypoechoic area could be a small hematoma at the area o f bruising and lump. [facility], , 07/30/2024 4:57 PM
[2024-07-30] MEDS: POTASSIUM BICARBONATE/CIT AC 20 MEQ TABLET.EFF PO ONE ×3 (17:13)
[2024-07-30 17:16] VITALS: BP 127/62; PULSE 64; RESP 16
--- NOTE | 2024-07-30 17:22 | XR ---
EXAMINATION TYPE: XR tibia fibula LT DATE OF EXAM: 07/30/2024 COMPARISON: None HISTORY: Pain TECHNIQUE: 2 view left tibia and fibula FINDINGS: Vascular calcification is present. Stent is in the proximal popliteal region Joint spaces a ppear preserved. No acute fracture or dislocation evident. Mild soft tissue swelling is present media lly IMPRESSION: 1. No acute osseous abnormality left lower extremity. 2. Soft tissue swelling medial left lower extremity [facility], Workstation: [facility], 07/30/2024 5:19 PM
== END 2024-07-30 17:53 | disposition home or self-care (01) ==
LOC: EC 12:21
CPT/HCPCS: 36415; 80053; 85025; 96374; 99284

== ENCOUNTER → 2024-07-30 | Outpatient (CLI) | payer MEDICARE, OTHER ==
[2024-07-30 15:29] LABS: ALT 73 U/L (8-44); AST 53 U/L (13-35); Albumin 3.1 g/dL (3.8-4.9); Albumin/Globulin Ratio 1.41 Ratio (1.60-3.17); Alkaline Phosphatase 679 U/L (41-126); BUN/Creat Ratio 14.82 Ratio (12.00-20.00); Blood Urea Nitrogen 16.3 mg/dL (9.0-27.0); Calcium 8.5 mg/dL (8.7-10.3); Carbon Dioxide 25.1 mmol/L (21.6-31.8); Chloride 102 mmol/L (96-109); Chol/HDL Ratio 2.12 Ratio; Globulin 2.2 g/dL (1.6-3.3); Glucose 269 mg/dL (70-110); LDL Cholesterol,Calculated 77.6 mg/dL (0.0-131.0); Potassium 2.8 mmol/L (3.5-5.5); Sodium 138 mmol/L (135-145); Total Bilirubin 0.7 mg/dL (0.3-1.2); Total Protein 5.3 g/dL (6.2-8.2); VLDL Calculation 19.48 mg/dL (5.00-40.00)
== END | disposition home or self-care (01) ==
LOC: LABWHC1 08:24
PROVIDERS: ATTEND Internal Medicine
CPT/HCPCS: 36415; 80053; 80061; 83036

== ENCOUNTER 2024-08-13 16:46 | Emergency (ER) | payer MEDICARE, OTHER ==
[2024-08-13 16:52] VITALS: TEMP 98.6
--- NOTE | 2024-08-13 17:29 | ED ---
Weakness HPI - General Source: patient, family, RN notes reviewed Mode of arrival: wheelchair Limitations: no limitations - History of Present Illness MD Complaint: generalized weakness, lack of energy Onset/Timin -: days(s) Location: generalized Severity scale (1-10): 9 (Gluteus, decubitus ulcer) Associated Symptoms: loss of appetite, rash, other (Diarrhea, no fluid intake) <Rusty Alexis - Last Filed: 08/13/24 23:06> <Sharlene Bhardwaj - Last Filed: 08/14/24 01:32> - General Chief complaint: Weakness Stated complaint: lethargy Time Seen by Provider: 08/13/24 16:59 - History of Present Illness Initial comments: This is a 74-year-old female with history of diabetes and COPD presenting with family for generalized weakness x 8 days. Patient states symptoms started shortly after receiving her second chemotherapy treatment for brain cancer. Family states patient has not been completely ambulatory in general but had been walking somewhat and conducting physical therapy prior to start of symptoms. Patient was diagnosed with a UTI 4 days ago and started on Keflex with minimal improvement. Endorses decreased urinary output and cloudy urine. Also endorses receiving the flu shot and starting having yellow diarrhea at the same time. Family states patient has been eating and drinking much less than usual. Endorses development of large erythematous rashes on her left lower extremity and inner thighs since starting chemotherapy. Patient endorses significant pain (9 out of 10) with developing decubitus ulcers. Endorses regular use of Tylenol every 6 hours. Denies known fever, chills, body aches, chest pain, dyspnea, abdominal pain, dysuria, nausea, vomiting, constipation, dizziness. (Rusty Alexis) - Related Data Home Medications Medication Instructions Recorded Confirmed Anastrozole 1 mg PO DAILY 11/20/23 07/30/24 Escitalopram [Lexapro] 20 mg PO DAILY 12/23/23 07/30/24 Esomeprazole Magnesium [NexIUM] 40 mg PO DAILY 12/23/23 07/30/24 Potassium Chloride ER [K-Dur 20] 20 meq PO DAILY 12/23/23 07/30/24 Rosuvastatin Calcium [Crestor] 40 mg PO DAILY 12/23/23 07/30/24 oxyBUTYnin chloride [Ditropan] 5 mg PO DAILY 12/23/23 07/30/24 Apixaban [Eliquis] 2.5 mg PO BID 01/10/24 07/30/24 Enalapril [Vasotec] 20 mg PO BID 05/05/24 07/30/24 Insulin Degludec [Tresiba 15 - 20 units SQ HS 05/05/24 07/30/24 Flextouch U-100 Pen] dexAMETHasone [Decadron] 1 mg PO BID 05/05/24 07/30/24 ALPRAZolam [Xanax] 0.25 mg PO BID 07/30/24 07/30/24 Furosemide [Lasix] 20 mg PO DAILY 07/30/24 07/30/24 Gabapentin [Neurontin] 300 mg PO DAILY 07/30/24 07/30/24 Insuln Asp Prt/Insulin Aspart See Protocol SQ AC-TID PRN 07/30/24 07/30/24 [NovoLOG MIX 70-30 VIAL] Lidocaine-Prilocaine Cream [Emla 1 applic TOPICAL DIRECTED PRN 07/30/24 07/30/24 Cream 2.5%/2.5%] Nystatin 100,000 Unit/ml Susp 400,000 unit PO QID 07/30/24 07/30/24 [Mycostatin Oral Susp] Ondansetron [Zofran] 4 - 8 mg PO Q4-6H PRN 07/30/24 07/30/24 hydrALAZINE HCL 25 mg PO BID 07/30/24 07/30/24 Previous Rx's Medication Instructions Recorded Prochlorperazine [Compazine] 10 mg PO Q6H PRN #30 tab 05/06/24 Allergies Allergy/AdvReac Type Severity Reaction Status Date / Time dog dander Allergy Runny nose Verified 08/13/24 16:48 codeine AdvReac Chest Pain Verified 08/13/24 16:48 empagliflozin AdvReac severe UTI Verified 08/13/24 16:48 [From Jardiance] metformin AdvReac Diarrhea Verified 08/13/24 16:48 pioglitazone [From Actos] AdvReac denies Verified 08/13/24 16:48 allergy semaglutide [From Ozempic] AdvReac denies Verified 08/13/24 16:48 allergy sitagliptin [From Januvia] AdvReac severe UTI Verified 08/13/24 16:48 dogs,horses,mold Allergy Runny nose Uncoded 08/13/24 16:48 Review of Systems ROS Other: All systems not noted in ROS Statement are negative. <Rusty Alexis - Last Filed: 08/13/24 23:06> ROS Other: All systems not noted in ROS Statement are negative. <Sharlene Bhardwaj - Last Filed: 08/14/24 01:32> ROS Statement: Those systems with pertinent positive or pertinent negative responses have been documented in the HPI. 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 murmur. hx breast cancer- radiation complete 04/2023. current spot on lung NO LEFT ARM use. 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 Pt has claustrophobia. Past Psychological History: Anxiety, Panic Disorder Smoking Status: Current every day smoker Past Alcohol Use History: None Reported Past Drug Use History: None Reported - Past Family History Mother Family Medical History: Diabetes Mellitus, Hyperlipidemia, Hypertension Sister(s) Family Medical History: Cancer Additional Family Medical History / Comment(s): Cervical cancer. She is . <Rusty Alexis - Last Filed: 08/13/24 23:06> General Exam Limitations: physical limitation General appearance: alert, in no apparent distress Head exam: Present: atraumatic, normocephalic, normal inspection Eye exam: Present: normal appearance, PERRL, EOMI. Absent: scleral icterus, conjunctival injection, periorbital swelling Pupils: Present: normal accommodation ENT exam: Present: normal exam, mucous membranes dry, TM's normal bilaterally Neck exam: Present: normal inspection. Absent: tenderness, meningismus, lymphadenopathy Respiratory exam: Present: normal lung sounds bilaterally. Absent: respiratory distress, wheezes, rales, rhonchi, stridor Cardiovascular Exam: Present: regular rate, normal rhythm, normal heart sounds, systolic murmur (1 out of 6 systolic murmur noted, family is aware). Absent: diastolic murmur, rubs, gallop, clicks GI/Abdominal exam: Present: soft, tenderness (Positive diffuse tenderness, especially in right upper quadrant. Patient endorses history of cholecystectomy), hypoactive bowel sounds. Absent: distended, guarding, rebound, rigid Extremities exam: Present: normal inspection, full ROM, normal capillary refill, pedal edema (Positive bilateral lower extremity pitting edema. ), other (10 cm circular, erythematous macule noted on left anterior olivas and macule also noted on left posterior heel. Bilateral inner thigh skin breakdown with without obvious signs of infection. Stage II decubitus ulcer noted on left gluteus, stage I on right gluteus). Absent: tenderness, joint swelling, calf tenderness Back exam: Present: normal inspection. Absent: CVA tenderness (R), CVA tend erness (L) Neurological exam: Present: alert, oriented X3, CN II-XII intact Psychiatric exam: Present: normal affect, normal mood Skin exam: Present: warm, dry, intact, normal color. Absent: rash <Rusty Alexis - Last Filed: 08/13/24 23:06> Course Vital Signs 08/13/24 08/13/24 16:49 18:55 Temperature 98.6 F Pulse Rate 95 70 Respiratory 20 16 Rate Blood Pressure 102/62 125/49 O2 Sat by Pulse 99 Oximetry Medical Decision Making - Lab Data Result diagrams: 08/13/24 17:30 08/13/24 17:30 <Rusty Alexis - Last Filed: 08/13/24 23:06> - Lab Data Result diagrams: 08/13/24 17:30 08/13/24 17:30 <Sharlene Bhardwaj - Last Filed: 08/14/24 01:32> - Medical Decision Making Was pt. sent in by a medical professional or institution (Dr., PA, CATTLE DRIVER, urgent care, hospital, or skilled nursing...) When possible be specific @ -No Did you speak to anyone other than the patient for history (EMS, parent, family, police, friend...)? What history was obtained from this source @ -Daughter Did you review nursing and triage notes (agree or disagree)? Why? @ -I reviewed and agree with nursing and triage notes Were old charts reviewed (outside hosp., previous admission, EMS record, old EKG, old radiological studies, urgent care reports/EKG's, skilled nursing records)? Report findings @ -No old charts were reviewed Differential Diagnosis (chest pain, altered mental status, abdominal pain women, abdominal pain men, vaginal bleeding, weakness, fever, dyspnea, syncope, headache, dizziness, GI bleed, back pain, seizure, CVA, palpatations, mental health, musculoskeletal)? @ -Differential Weakness: Hypoglycemia, shock, sepsis, hyponatremia, anemia, infection, SC, ETOH, adverse medicine reaction, overdose, stroke, this is not meant to be an all-inclusive list. EKG interpreted by me (3pts min.). @ -Sinus rhythm with right bundle branch block. Ventricular rate 83 bpm, CB 163 ms, QRS 170 ms, QTc 510 ms X-rays interpreted by me (1pt min.). @ -Chest x-ray shows no infiltrates, pulmonary edema or pneumothorax. CT interpreted by me (1pt min.). @ -None done U/S interpreted by me (1pt. min.). @ -None done What testing was considered but not performed or refused? (CT, X-rays, U/S, labs)? Why? @ -None What meds were considered but not given or refused? Why? @ -None Did you discuss the management of the patient with other professionals (professionals i.e. VLADIMIR Boone, CATTLE DRIVER, lab, RT, psych nurse, older adult social work specialist, utility pipe layer, teacher, air defence officer, block and case maker)? Give summary @ -No Was smoking cessation discussed for >3mins.? @ -No Was critical care preformed (if so, how long)? @ -No Were there social determinants of health that impacted care today? How? (Homelessness, low income, unemployed, alcoholism, drug addiction, transportation, low edu. Level, literacy, decrease access to med. care, half-way, rehab)? @ -No Was there de-escalation of care discussed even if they declined (Discuss DNR or withdrawal of care, Hospice)? DNR status @ -No What co-morbidities impacted this encounter? (DM, HTN, Smoking, COPD, CAD, Cancer, CVA, ARF, Chemo, Hep., AIDS, mental health diagnosis, sleep apnea, morbid obesity)? @ -Diabetes, COPD, brain cancer Was patient admitted / discharged? Hospital course, mention meds given and route, prescriptions, significant lab abnormalities, going to OR and other pertinent info. @ -Discharge. Chest x-ray and Cepheid test were unremarkable. Lab work shows severe hypokalemia treated with IV and p.o. potassium. UA shows ongoing UTI being treated with Keflex. Patient states she feels better after receiving IV normal saline and potassium. Patient daughter agreed to discharge and will follow-up for scheduled doctor's appointment tomorrow. Undiagnosed new problem with uncertain prognosis? @ -No Drug Therapy requiring intensive monitoring for toxicity (Heparin, Nitro, Insulin, Cardizem)? @ -No Were any procedures done? @ -No Diagnosis/symptom? @ -Hypokalemia, UTI, dehydration Acute, or Chronic, or Acute on Chronic? @ -Acute on chronic Uncomplicated (without systemic symptoms) or Complicated (systemic symptoms)? @ -Complicated Side effects of treatment? @ -No Exacerbation, Progression, or Severe Exacerbation? @ -Severe exacerbation Poses a threat to life or bodily function? How? (Chest pain, USA, SC, pneumonia, PE, COPD, DKA, ARF, appy, cholecystitis, CVA, Diverticulitis, Homicidal, Suicidal, threat to staff... and all critical care pts) @ -Hypokalemia (Rusty Alexis) Patient, including HPI, workup thus far and results thus far was presented to myself by SUJIT. On my assessment patient is well-appearing and in no acute distress. Daughter at the bedside. I discussed with them potential admission for treatment UTI as patient has had 4 days outpatient treatment and has worsening weakness. Pt's daughter states that patient had her flu shot on Saturday and has had 4 episodes of diarrhea yesterday mother sent in by their oncologist for IV fluid hydration. Patient daughter would prefer discharge home and have a follow-up appointment already scheduled patient's oncologist in the morning. Patient has not completed outpatient antibiotics and has close follow up. I feel this is a reasonable plan given patient's preference. Patient is stable for discharge home. I discussed with patient and daughter the importance of returning to the ER should patient have any fevers, failure of symptoms to improve after completion of antibiotics or should they have any further concerns the patient wellbeing. (Sharlene Bhardwaj) - Lab Data Lab Results 08/13/24 08/13/24 08/13/24 Range/Units 17:30 17:30 17:30 WBC 1.7 L (3.8-10.6) k/uL RBC 3.18 L (3.80-5.40) m/uL Hgb 10.6 L (11.4-16.0) gm/dL Hct 31.5 L (34.0-46.0) % MCV 99.0 (80.0-100.0) fL MCH 33.3 (25.0-35.0) pg MCHC 33.6 (31.0-37.0) g/dL RDW 14.7 (11.5-15.5) % Plt Count 55 L (150-450) k/uL MPV 8.6 Neutrophils % 58 % Lymphocytes % 35 % Monocytes % 2 % Eosinophils % 2 % Basophils % 0 % Neutrophils # 1.0 L (1.3-7.7) k/uL Lymphocytes # 0.6 L (1.0-4.8) k/uL Monocytes # 0.0 (0-1.0) k/uL Eosinophils # 0.0 (0-0.7) k/uL Basophils # 0.0 (0-0.2) k/uL Sodium 134 L (137-145) mmol/L Potassium 2.5 L* (3.5-5.1) mmol/L Chloride 100 (98-107) mmol/L Carbon Dioxide 30 (22-30) mmol/L Anion Gap 4 mmol/L BUN 19 H (7-17) mg/dL Creatinine 1.09 H (0.52-1.04) mg/dL Est GFR (CKD-EPI)AfAm 59 (>60 ml/min/1.73 sqM) Est GFR (CKD-EPI)NonAf 51 (>60 ml/min/1.73 sqM) Glucose 171 H (74-99) mg/dL Plasma Lactic Acid Benjamín 1.8 (0.7-2.0) mmol/L Calcium 7.9 L (8.4-10.2) mg/dL Total Bilirubin 1.1 (0.2-1.3) mg/dL AST 30 (14-36) U/L ALT 30 (4-34) U/L Alkaline Phosphatase 247 H (38-126) U/L Total Protein 5.1 L (6.3-8.2) g/dL Albumin 2.5 L (3.5-5.0) g/dL Amylase 33 (30-110) U/L Lipase 60 (23-300) U/L Urine Color Urine Appearance (Clear) Urine pH (5.0-8.0) Ur Specific Sixes (1.001-1.035) Urine Protein (Negative) Urine Glucose (UA) (Negative) Urine Ketones (Negative) Urine Blood (Negative) Urine Nitrite (Negative) Urine Bilirubin (Negative) Urine Urobilinogen (<2.0) mg/dL Ur Leukocyte Esterase (Negative) Urine RBC (0-5) /hpf Urine WBC (0-5) /hpf Ur Squamous Epith Cells (0-4) /hpf Urine Bacteria (None) /hpf Urine Mucus (None) /hpf Urine Yeast (Budding) (None) /hpf Influenza Type A (PCR) (Not Detectd) Influenza Type B (PCR) (Not Detectd) RSV (PCR) (Not Detectd) SARS-CoV-2 (PCR) (Not Detectd) 08/13/24 08/13/24 Range/Units 17:30 17:30 WBC (3.8-10.6) k/uL RBC (3.80-5.40) m/uL Hgb (11.4-16.0) gm/dL Hct (34.0-46.0) % MCV (80.0-100.0) fL MCH (25.0-35.0) pg MCHC (31.0-37.0) g/dL RDW (11.5-15.5) % Plt Count (150-450) k/uL MPV Neutrophils % % Lymphocytes % % Monocytes % % Eosinophils % % Basophils % % Neutrophils # (1.3-7.7) k/uL Lymphocytes # (1.0-4.8) k/uL Monocytes # (0-1.0) k/uL Eosinophils # (0-0.7) k/uL Basophils # (0-0.2) k/uL Sodium (137-145) mmol/L Potassium (3.5-5.1) mmol/L Chloride (98-107) mmol/L Carbon Dioxide (22-30) mmol/L Anion Gap mmol/L BUN (7-17) mg/dL Creatinine (0.52-1.04) mg/dL Est GFR (CKD-EPI)AfAm (>60 ml/min/1.73 sqM) Est GFR (CKD-EPI)NonAf (>60 ml/min/1.73 sqM) Glucose (74-99) mg/dL Plasma Lactic Acid Benjamín (0.7-2.0) mmol/L Calcium (8.4-10.2) mg/dL Total Bilirubin (0.2-1.3) mg/dL AST (14-36) U/L ALT (4-34) U/L Alkaline Phosphatase (38-126) U/L Total Protein (6.3-8.2) g/dL Albumin (3.5-5.0) g/dL Amylase (30-110) U/L Lipase (23-300) U/L Urine Color Light Yellow Urine Appearance Cloudy H (Clear) Urine pH 5.5 (5.0-8.0) Ur Specific Sixes 1.012 (1.001-1.035) Urine Protein Trace H (Negative) Urine Glucose (UA) Negative (Negative) Urine Ketones Negative (Negative) Urine Blood Trace H (Negative) Urine Nitrite Negative (Negative) Urine Bilirubin Negative (Negative) Urine Urobilinogen <2.0 (<2.0) mg/dL Ur Leukocyte Esterase Moderate H (Negative) Urine RBC 4 (0-5) /hpf Urine WBC 21 H (0-5) /hpf Ur Squamous Epith Cells 6 H (0-4) /hpf Urine Bacteria Rare H (None) /hpf Urine Mucus Rare H (None) /hpf Urine Yeast (Budding) Many H (None) /hpf Influenza Type A (PCR) Not Detected (Not Detectd) Influenza Type B (PCR) Not Detected (Not Detectd) RSV (PCR) Not Detected (Not Detectd) SARS-CoV-2 (PCR) Not Detected (Not Detectd) Disposition Is patient prescribed a controlled substance at d/c from ED?: No Time of Disposition: :08 <Rusty Alexis - Last Filed: 08/13/24 23:06> <Sharlene Bhardwaj - Last Filed: 08/14/24 01:32> Clinical Impression: Hypokalemia, Weakness, Dehydration Disposition: HOME SELF-CARE Condition: Fair Instructions (If sedation given, give patient instructions): Hypokalemia (ED), Weakness (ED) Referrals: Jaden Barajas DO [Primary Care Provider] - 1-2 days
[2024-08-13] MEDS: KETOROLAC 15 MG/ML 1 ML VIAL IVP STA (17:37)
[2024-08-13] MEDS: SODIUM CHLORIDE 0.9% 1,000 ML IV STA ×2 (17:37→20:45)
[2024-08-13 18:11] LABS: Basophils % (A) 0 %; Eosinophils % (A) 2 %; HCT 31.5 % (34.0-46.0); HGB 10.6 gm/dL (11.4-16.0); Lymphocytes # (A) 0.6 k/uL (1.0-4.8); Lymphocytes % (A) 35 %; MCH 33.3 pg (25.0-35.0); MCHC 33.6 g/dL (31.0-37.0); Mean Platelet Volume 8.6; Monocytes % (A) 2 %; Neutrophils % (A) 58 %; RBC 3.18 m/uL (3.80-5.40); RDW 14.7 % (11.5-15.5); WBC 1.7 k/uL (3.8-10.6)
[2024-08-13 18:13] LABS: ALT 30 U/L (4-34); African American GFR (CKD) 59 (>60 ml/min/1.73 sqM); Albumin 2.5 g/dL (3.5-5.0); Amylase 33 U/L (30-110); Anion Gap 4 mmol/L; Blood Urea Nitrogen 19 mg/dL (7-17); Calcium 7.9 mg/dL (8.4-10.2); Carbon Dioxide 30 mmol/L (22-30); Chloride 100 mmol/L (98-107); Glucose 171 mg/dL (74-99); Lipase 60 U/L (23-300); Non-African American GFR(CKD) 51 (>60 ml/min/1.73 sqM); Sodium 134 mmol/L (137-145); Total Bilirubin 1.1 mg/dL (0.2-1.3); Total Protein 5.1 g/dL (6.3-8.2)
[2024-08-13 18:15] LABS: AST 30 U/L (14-36); Alkaline Phosphatase 247 U/L (38-126); Potassium 2.5 mmol/L (3.5-5.1)
[2024-08-13 18:27] LABS: Platelet Count 55 k/uL (150-450)
--- NOTE | 2024-08-13 18:36 | XR ---
EXAMINATION TYPE: XR chest 2V DATE OF EXAM: 08/13/2024 COMPARISON: None INDICATION: Pt feeling run down since chemo last . Family states pt supposed to see Chayo to hitesh, but concerned because pt is just not doing well. Pt on abx for UTI since Saturday, Has had diar yovanny since Saturday as well. Fatigue, history of COPD. TECHNIQUE: Frontal and lateral views of the chest are obtained. FINDINGS: The heart size is normal. The pulmonary vasculature is normal. The lungs are clear. Port overlies the right chest. IMPRESSION: 1. No acute pulmonary process. [facility], Workstation: [facility], 08/13/2024 6:34 PM
[2024-08-13 18:56] VITALS: BP 125/49; PULSE 70; RESP 16
[2024-08-13] MEDS: POTASSIUM CHLORIDE 20 MEQ in WATER FOR INJECTION 1 100ML.BAG IVPB STA (18:59)
[2024-08-13] MEDS: POTASSIUM CHLORIDE ER 20 MEQ TAB.ER PO STA (19:00)
[2024-08-13 22:02] LABS: Appearance,Urine Cloudy (Clear); Bacteria,Urine Rare /hpf; Bilirubin,Urine Negative (Negative); Blood,Urine Trace (Negative); Budding Yeast,Urine Many /hpf; Color,Urine Light Yellow; Glucose,Urine (UA) Negative (Negative); Ketones,Urine Negative (Negative); Leukocyte Esterase,Urine Moderate (Negative); Mucus,Urine Rare /hpf; Nitrite,Urine Negative (Negative); PH, Urine 5.5 (5.0-8.0); Protein,Urine Trace (Negative); RBC,Urine 4 /hpf (0-5); Specific Gravity,Urine 1.012 (1.001-1.035); Squamous Epithelial Cell,Urine 6 /hpf (0-4); Urobilinogen,Urine <2.0 mg/dL (<2.0); WBC,Urine 21 /hpf (0-5)
== END 2024-08-13 22:40 | disposition home or self-care (01) ==
LOC: EC 16:46
CPT/HCPCS: 36415; 71046; 80053; 81001; 82150; 83605; 83690; 85025; 87086; 87636; 93005; 96361; 96365; 96366; 96375; 99285

== ENCOUNTER 2024-08-14 09:45 | Inpatient (IN) | payer MEDICARE, OTHER ==
--- NOTE | 2024-08-14 10:26 | ED ---
General Adult HPI - General Chief complaint: Recheck/Abnormal Lab/Rx Stated complaint: Blood infection, sent by PCP Time Seen by Provider: 08/14/24 09:53 Source: patient, family Mode of arrival: wheelchair Limitations: no limitations - History of Present Illness Initial comments: Dictation was produced using [employer] dictation software. please excuse any gra mmatical, word or spelling errors. Chief Complaint: 74-year-old female with history of lung cancer presents to the emergency department for admission History of Present Illness: Patient 74-year-old female she has a UTI. She has history of small cell lung cancer gets chemotherapy. Patient was seen here in the emergency department last night where she was evaluated for chief complaint of lethargy. Patient had an appoint with her oncologist this morning was told that she should come back to the emergency department to be admitted. Patient still felt a little weak this morning. Denies any fever, chills or night sweats. Denies any fevers. Patient complains of some chronic sacral decubitus pain. The ROS documented in this emergency department record has been reviewed and confirmed by me. Those systems with pertinent positive or negative responses have been documented in the HPI. All other systems are other negative and/or noncontributory. - Related Data Home Medications Medication Instructions Recorded Confirmed Anastrozole 1 mg PO DAILY 11/20/23 08/14/24 Escitalopram [Lexapro] 20 mg PO HS 12/23/23 08/14/24 Esomeprazole Magnesium [NexIUM] 40 mg PO DAILY 12/23/23 08/14/24 Potassium Chloride ER [K-Dur 20] 20 meq PO DAILY PRN 12/23/23 08/14/24 Apixaban [Eliquis] 2.5 mg PO BID 01/10/24 08/14/24 Enalapril [Vasotec] 20 mg PO DAILY 05/05/24 08/14/24 Insulin Degludec [Tresiba 5 - 20 units SQ HS 05/05/24 08/14/24 Flextouch U-100 Pen] ALPRAZolam [Xanax] 0.125 - 0.25 mg PO BID PRN 07/30/24 08/14/24 Furosemide [Lasix] 20 mg PO BID 07/30/24 08/14/24 Gabapentin [Neurontin] 300 mg PO HS 07/30/24 08/14/24 Insuln Asp Prt/Insulin Aspart See Protocol SQ AC-TID PRN 07/30/24 08/14/24 [NovoLOG MIX 70-30 VIAL] Ondansetron [Zofran] 4 - 8 mg PO Q4-6H PRN 07/30/24 08/14/24 hydrALAZINE HCL 25 mg PO BID 07/30/24 08/14/24 Acetaminophen Tab [Tylenol] 650 mg PO Q6H PRN 08/14/24 08/14/24 Magnesium 250 mg PO DAILY PRN 08/14/24 08/14/24 oxyBUTYnin chloride [oxyBUTYnin 5 mg PO DAILY 08/14/24 08/14/24 chloride ER] Previous Rx's Medication Instructions Recorded Prochlorperazine [Compazine] 10 mg PO Q6H PRN #30 tab 05/06/24 Allergies Allergy/AdvReac Type Severity Reaction Status Date / Time dog dander Allergy Runny nose Verified 08/14/24 11:27 codeine AdvReac Chest Pain Verified 08/14/24 11:27 empagliflozin AdvReac severe UTI Verified 08/14/24 11:27 [From Jardiance] metformin AdvReac Diarrhea Verified 08/14/24 11:27 pioglitazone [From Actos] AdvReac denies Verified 08/14/24 11:27 allergy semaglutide [From Ozempic] AdvReac denies Verified 08/14/24 11:27 allergy sitagliptin [From Januvia] AdvReac severe UTI Verified 08/14/24 11:27 dogs,horses,mold Allergy Runny nose Uncoded 08/14/24 11:27 Review of Systems ROS Statement: Those systems with pertinent positive or pertinent negative responses have been documented in the HPI. ROS Other: All systems not noted in ROS Statement are negative. Past Medical History Past Medical History: Atrial Flutter, Cancer, COPD, Diabetes Mellitus, GERD/Reflux, Hyperlipidemia, Hypertension, Osteoarthritis (OA), Vascular Disorder Additional Past Medical History / Comment(s): IDDM type II, osteoporosis, jeffrey pheral vascular disease with poor circulation involving lower extremities, urinary incontinence, previous history of epicardial wires in the heart from previous cardiac surgery, probably related to the myxoma resection. murmur. hx breast cancer- radiation complete 04/2023. current spot on lung NO LEFT ARM use. 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 Pt has claustrophobia. Past Psychological History: Anxiety, Panic Disorder Smoking Status: Current every day smoker Past Alcohol Use History: None Reported Past Drug Use History: None Reported - Past Family History Mother Family Medical History: Diabetes Mellitus, Hyperlipidemia, Hypertension Sister(s) Family Medical History: Cancer Additional Family Medical History / Comment(s): Cervical cancer. She is . General Exam - General Exam Comments Initial Comments: PHYSICAL EXAM: General Impression: Alert and oriented x3, not in acute distress HEENT: Normocephalic atraumatic, extra-ocular movements intact, pupils equal and reactive to light bilaterally, mucous membranes moist. Cardiovascular: Heart regular rate and rhythm Chest: Able to complete full sentences, no retractions, no tachypnea Abdomen: abdomen soft, non-tender, non-distended, no organomegaly Musculoskeletal: Pulses present and equal in all extremities, no peripheral edema Motor: no focal deficits noted Neurological: CN II-XII grossly intact, no focal motor or sensory deficits noted Skin: Intact with no visualized rashes Psych: Normal affect and mood Limitations: no limitations Course Vital Signs 08/14/24 08/14/24 09:48 11:11 Temperature 98.6 F Pulse Rate 83 79 Respiratory 20 20 Rate Blood Pressure 85/53 101/79 O2 Sat by Pulse 98 99 Oximetry EKG Findings - EKG Comments: EKG Findings:: My EKG interpretation: Ventricular rate 83, sinus rhythm, right bundle branch block,. 173, QRS 189, QTc 493. No AR prolongation, no QTC prolongation, no ST or T-wave changes noted. EKG compared to August 13, 2024 for showing no changes. Overall, this EKG is unremarkable Medical Decision Making - Medical Decision Making Was pt. sent in by a medical professional or institution (Dr., PA, [employer], urgent care, hospital, or usp...) When possible be specific @ -No Did you speak to anyone other than the patient for history (EMS, parent, family, police, friend...)? What history was obtained from this source @ -No Did you review nursing and triage notes (agree or disagree)? Why? @ -I reviewed and agree with nursing and triage notes Were old charts reviewed (outside hosp., previous admission, EMS record, old EKG, old radiological studies, urgent care reports/EKG's, usp records)? Report findings @ -No old charts were reviewed Differential Diagnosis (chest pain, altered mental status, abdominal pain women, abdominal pain men, vaginal bleeding, musculoskeletal, weakness, fever, dyspnea, syncope, headache, dizziness, GI bleed, back pain, seizure, CVA, palpatations, mental health)? @ -Differential Weakness: Hypoglycemia, shock, sepsis, hyponatremia, anemia, infection, PR, ETOH, adverse medicine reaction, overdose, stroke, this is not meant to be an all-inclusive list. EKG interpreted by me (3pts min.). @ -See above X-rays interpreted by me (1pt min.). @ -None done CT interpreted by me (1pt min.). @ -None done U/S interpreted by me (1pt. min.). @ -None done What testing was considered but not performed or refused? (CT, X-rays, U/S, labs)? Why? @ -None What meds were considered but not given or refused? Why? @ -None Was smoking cessation discussed for >3mins.? @ -No Were there social determinants of health that impacted care today? How? (Homelessness, low income, unemployed, alcoholism, drug addiction, trans portation, low edu. Level, literacy, decrease access to med. care, half-way, rehab)? @ -No Was there de-escalation of care discussed even if they declined (Discuss DNR or withdrawal of care, Hospice)? DNR status @ -No What co-morbidities impacted this encounter? (DM, HTN, Smoking, COPD, CAD, Cancer, CVA, ARF, Chemo, Hep., AIDS, mental health diagnosis, sleep apnea, morbid obesity)? @ -Small cell lung cancer Was patient admitted / discharged? Hospital course, mention meds given and route, prescriptions, significant lab abnormalities, going to OR and other pertinent info. @ -74-year-old female with history of small cell lung cancer presents to the ER for weakness. She was seen here yesterday. Vital signs upon arrival shows hypotension of 85/53. Repeat vital signs are significantly improved. Patient well-appearing in no acute distress. Laboratory evaluation obtained. Leukopenia 1.1 with a hemoglobin of 8.9 potassium 2.5 magnesium 1.4. Patient be admitted per instruction of oncologist. Case discussed with hospitalist for admission. Patient given electrolytes via IV Did you discuss the management of the patient with other professionals (professionals i.e. , PA, [employer], lab, RT, psych nurse, sr. social media & mobile manager, hoop bender tank, teacher, real estate loan officer, case management associate)? Give summary @ -See above Was critical care preformed (if so, how long)? @ -No Undiagnosed new problem with uncertain prognosis? @ -No Drug Therapy requiring intensive monitoring for toxicity (Heparin, Nitro, Insulin, Cardizem)? @ -No Were any procedures done? @ -No Diagnosis/symptom? Acute, or Chronic, or Acute on Chronic? Uncomplicated (without systemic symptoms) or Complicated (systemic symptoms)? @ -Weakness, UTI, electrolyte derangement Side effects of treatment? @ -No Exacerbation, Progression, or Severe Exacerbation? @ -No Poses a threat to life or bodily function? How? (Chest pain, USA, PR, pneumonia, PE, COPD, DKA, ARF, appy, cholecystitis, CVA, Diverticulitis, Homicidal, Suicidal, threat to staff... and all critical care pts) @ -yes - Lab Data Result diagrams: 08/14/24 10:57 08/14/24 10:57 Lab Results 08/14/24 08/14/24 Range/Units 10:57 10:57 WBC 1.1 L* (3.8-10.6) k/uL RBC 2.58 L (3.80-5.40) m/uL Hgb 8.9 L D (11.4-16.0) gm/dL Hct 26.0 L (34.0-46.0) % MCV 100.6 H (80.0-100.0) fL MCH 34.5 (25.0-35.0) pg MCHC 34.3 (31.0-37.0) g/dL RDW 14.7 (11.5-15.5) % Plt Count 35 L (150-450) k/uL MPV 9.6 Neutrophils % (Manual) 45 % Band Neuts % (Manual) 1 % Lymphocytes % (Manual) 45 % Monocytes % (Manual) 6 % Eosinophils % (Manual) 3 % Neutrophils # (Manual) 0.50 L (1.3-7.7) k/uL Lymphocytes # (Manual) 0.50 L (1.0-4.8) k/uL Monocytes # (Manual) 0.07 (0-1.0) k/uL Eosinophils # (Manual) 0.03 (0-0.7) k/uL Nucleated RBCs 0 (0-0) /100 WBC Manual Slide Review Performed Macrocytosis Slight Sodium 136 L (137-145) mmol/L Potassium 2.5 L* (3.5-5.1) mmol/L Chloride 106 (98-107) mmol/L Carbon Dioxide 27 (22-30) mmol/L Anion Gap 3 mmol/L BUN 16 (7-17) mg/dL Creatinine 1.03 (0.52-1.04) mg/dL Est GFR (CKD-EPI)AfAm 63 (>60 ml/min/1.73 sqM) Est GFR (CKD-EPI)NonAf 55 (>60 ml/min/1.73 sqM) Glucose 175 H (74-99) mg/dL Calcium 7.6 L (8.4-10.2) mg/dL Magnesium 1.4 L (1.6-2.3) mg/dL Disposition Clinical Impression: UTI (urinary tract infection), Electrolyte abnormality Disposition: ADMITTED IP TO THIS HOSP Condition: Fair Referrals: Jaden Barajas DO [Primary Care Provider] - 1-2 days Decision Time: 12:00
[2024-08-14] MEDS: SODIUM CHLORIDE 0.9% 1,000 ML IV STA (11:07)
[2024-08-14] MEDS: cefTRIAXone IN SWFI 1,000 MG/10 ML SYRINGE IVP STA (11:07)
[2024-08-14 11:10] LABS: HGB 8.9 gm/dL (11.4-16.0); MCH 34.5 pg (25.0-35.0); MCHC 34.3 g/dL (31.0-37.0); MCV 100.6 fL (80.0-100.0); Macrocytosis Slight; Mean Platelet Volume 9.6; RBC 2.58 m/uL (3.80-5.40); RDW 14.7 % (11.5-15.5)
[2024-08-14 11:24] LABS: WBC 1.1 k/uL (3.8-10.6)
[2024-08-14 11:26] LABS: Platelet Count 35 k/uL (150-450)
[2024-08-14 11:44] LABS: Band Neutrophils % 1 %; Eosinophils # (M) 0.03 k/uL (0-0.7); Monocytes # (M) 0.07 k/uL (0-1.0); Neutrophils % (M) 45 %; Nucleated Red Blood Cells 0 /100 WBC (0-0); Total Cells Counted 100
[2024-08-14 12:23] LABS: African American GFR (CKD) 63 (>60 ml/min/1.73 sqM); Anion Gap 3 mmol/L; Blood Urea Nitrogen 16 mg/dL (7-17); Calcium 7.6 mg/dL (8.4-10.2); Carbon Dioxide 27 mmol/L (22-30); Chloride 106 mmol/L (98-107); Glucose 175 mg/dL (74-99); Magnesium 1.4 mg/dL (1.6-2.3); Non-African American GFR(CKD) 55 (>60 ml/min/1.73 sqM); Sodium 136 mmol/L (137-145)
[2024-08-14 12:27] LABS: Potassium 2.5 mmol/L (3.5-5.1)
[2024-08-14] MEDS: POTASSIUM CHLORIDE 20 MEQ in WATER FOR INJECTION 1 100ML.BAG IVPB SCH (13:07)
[2024-08-14] MEDS ORDERED: NALOXONE 0.4 MG/ML 1 ML VIAL IV PRN (13:07)
[2024-08-14] MEDS: MAGNESIUM SULFATE-D5W PMX 1 GM in DEXTROSE/WATER 1 100ML.BAG IVPB SCH (13:10)
[2024-08-14] MEDS: SODIUM CHLORIDE 0.9% 1,000 ML IV SCH (13:23)
[2024-08-14] MEDS ORDERED: MAGNESIUM OXIDE 400 MG TAB PO PRN (14:38)
[2024-08-14] MEDS ORDERED: DEXTROSE 50% SYRINGE 50 ML IVP PRN ×2 (14:44)
--- NOTE | 2024-08-14 14:50 | P.HPIM ---
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 Patient was seen by her oncologist in the morning where lab work was significant for severe hypokalemia and hypomagnesemia. Patient was advised to come to ER for further evaluation. Patient has similar presentation in the past and was hospitalized for hypokalemia. Patient was seen in the ER yesterday with a chief complaint of feeling lethargic and her blood work showed potassium level of 2.5 and potassium replacement was initiated. Patient was not hospitalized because she had an appointment with oncologist today morning. Additionally, patient also endorsing bright red blood in the urine since this morning with some large clots. Patient was recently treated for UTI. Patient also states that she has been having bloody bowel movement since today but she is not sure about it. Patient has been endorsing diarrhea since Saturday shortly after she had her flu shot. No previous history of hematuria or hematochezia. Patient otherwise denies any chest pain, shortness of breath, abdominal pain, nausea and or vomiting. Denies urgency, frequency of urination or dysuria. Laboratory evaluation in the ER shows potassium level 2.5, WBC 1.1, RBC 2.58, hemoglobin 8.9, platelet count 35, calcium 7.6, magnesium 1.4 Her EKG shows this rhythm with a right bundle branch block. T wave flattening in aVL. Prolonged QTc of 493. ED documentation reviewed and case discussed with ED provider. Patient admitted to internal medicine service for electrolyte abnormality and acute blood loss anemia. Review of systems: Pertinent positives and negatives as discussed in HPI, a complete review of systems was performed and all other systems are negative. Social history: Tobacco: Chronic smoker, half pack a day Physical examination: Vital signs reviewed General: non toxic, no distress, appears at stated age, normal weight Derm: Large ecchymotic lesions on bilateral upper and lower extremity Head: atraumatic, normocephalic, symmetric Eyes: EOMI, no lid lag, anicteric sclera, pupils equal round reactive to light ENT: Nose and ears atraumatic Neck: No cervical lymphadenopathy, trachea midline, supple Mouth: no lip lesion, mucus membranes moist Cardiovascular: S1S2 reg, no murmur, positive dorsalis pedis pulse bilateral, no edema Lungs: CTA bilateral, no rhonchi, no rales, no accessory muscle use Abdominal: soft, nontender to palpation, no guarding Ext: muscle strength 5 out of 5 in all 4 extremities grossly, no gross muscle atrophy, no contractures, Neuro: CN II-XI grossly intact, no gross focal neuro deficits Psych: Alert, oriented, appropriate affect Assessment/Plan: Patient is a 74-year-old female with 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 Patient is admitted for further evaluation for severe hypokalemia and acute blood loss anemia. #Generalized weakness #Hypokalemia #Pancytopenia #History of SCLC status post chemoradiation #suspected hematuria and hematochezia #Acute blood loss anemia secondary to above WBC 1.1, RBC 2.58, hemoglobin 8.9, platelet count 35 No active bleeding Repeat CBC in the afternoon Transfusion if hemoglobin less than 7 transfuse for a platelet count <10,000/microL Consult oncology Protonix 40 mg p.o. twice daily Potassium 2.5 Potassium chloride IVPB every 2 hour started in ER Continue monitor potassium level Continue cardiac telemetry #Hypomagnesemia Magnesium 1.4 Patient was given 2 g of IV mag in the ER Repeat mag in the morning #Hyperglycemia #History of type 2 diabetes Glucose 175 Accu-Cheks and sliding scale insulin Check HbA1c Chronic conditions Hypertension, resume enalapril 20 mg p.o. daily DVT prophylaxis: Lovenox subcu daily The patient is admitted with an anticipated more than 2 midnight stay for evaluation of generalized weakness CODE STATUS: Full Discussed with: Patient Anticipated discharge place: Pending clinical course I saw and evaluated the patient during the mike and critical portions of this en counter, and discussed the case in detail with the resident author of this note, I agree with the Assessment and Plan, and my changes, if any, are highlighted in blue. 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 murmur. hx breast cancer- radiation complete 04/2023. current spot on lung NO LEFT ARM use. 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 Pt has claustrophobia. Past Psychological History: Anxiety, Panic Disorder Smoking Status: Current every day smoker Past Alcohol Use History: None Reported Past Drug Use History: None Reported - Past Family History Mother Family Medical History: Diabetes Mellitus, Hyperlipidemia, Hypertension Sister(s) Family Medical History: Cancer Additional Family Medical History / Comment(s): Cervical cancer. She is . Medications and Allergies Home Medications Medication Instructions Recorded Confirmed Type Anastrozole 1 mg PO DAILY 11/20/23 08/14/24 History Escitalopram [Lexapro] 20 mg PO HS 12/23/23 08/14/24 History Esomeprazole Magnesium [NexIUM] 40 mg PO DAILY 12/23/23 08/14/24 History Potassium Chloride ER [K-Dur 20] 20 meq PO DAILY PRN 12/23/23 08/14/24 History Apixaban [Eliquis] 2.5 mg PO BID 01/10/24 08/14/24 History Enalapril [Vasotec] 20 mg PO DAILY 05/05/24 08/14/24 History Insulin Degludec [Tresiba 5 - 20 units SQ HS 05/05/24 08/14/24 History Flextouch U-100 Pen] Prochlorperazine [Compazine] 10 mg PO Q6H PRN #30 tab 05/06/24 08/14/24 Rx ALPRAZolam [Xanax] 0.125 - 0.25 mg PO BID PRN 07/30/24 08/14/24 History Furosemide [Lasix] 20 mg PO BID 07/30/24 08/14/24 History Gabapentin [Neurontin] 300 mg PO HS 07/30/24 08/14/24 History Insuln Asp Prt/Insulin Aspart See Protocol SQ AC-TID PRN 07/30/24 08/14/24 History [NovoLOG MIX 70-30 VIAL] Ondansetron [Zofran] 4 - 8 mg PO Q4-6H PRN 07/30/24 08/14/24 History hydrALAZINE HCL 25 mg PO BID 07/30/24 08/14/24 History Acetaminophen Tab [Tylenol] 650 mg PO Q6H PRN 08/14/24 08/14/24 History Magnesium 250 mg PO DAILY PRN 08/14/24 08/14/24 History oxyBUTYnin chloride [oxyBUTYnin 5 mg PO DAILY 08/14/24 08/14/24 History chloride ER] Allergies Allergy/AdvReac Type Severity Reaction Status Date / Time dog dander Allergy Runny nose Verified 08/14/24 11:27 codeine AdvReac Chest Pain Verified 08/14/24 11:27 empagliflozin AdvReac severe UTI Verified 08/14/24 11:27 [From Jardiance] metformin AdvReac Diarrhea Verified 08/14/24 11:27 pioglitazone [From Actos] AdvReac denies Verified 08/14/24 11:27 allergy semaglutide [From Ozempic] AdvReac denies Verified 08/14/24 11:27 allergy sitagliptin [From Januvia] AdvReac severe UTI Verified 08/14/24 11:27 dogs,horses,mold Allergy Runny nose Uncoded 08/14/24 11:27 Physical Exam Osteopathic Statement: *. No significant issues noted on an osteopathic structural exam other than those noted in the History and Physical/Consult. Vitals: Vital Signs Temp Pulse Resp BP Pulse Ox 08/14/24 13:11 97.6 F 73 20 113/49 99 08/14/24 11:11 79 20 101/79 99 08/14/24 09:48 98.6 F 83 20 85/53 98 Intake and Output 08/13/24 08/14/24 08/14/24 22:59 06:59 14:59 Other: Weight 73.482 kg Results CBC & Chem 7: 08/14/24 15:02 08/14/24 10:57 Labs: Abnormal Lab Results - Last 24 Hours (Table) 08/14/24 08/14/24 Range/Units 10:57 10:57 WBC 1.1 L* (3.8-10.6) k/uL RBC 2.58 L (3.80-5.40) m/uL Hgb 8.9 L D (11.4-16.0) gm/dL Hct 26.0 L (34.0-46.0) % MCV 100.6 H (80.0-100.0) fL Plt Count 35 L (150-450) k/uL Neutrophils # (Manual) 0.50 L (1.3-7.7) k/uL Lymphocytes # (Manual) 0.50 L (1.0-4.8) k/uL Sodium 136 L (137-145) mmol/L Potassium 2.5 L* (3.5-5.1) mmol/L Glucose 175 H (74-99) mg/dL Calcium 7.6 L (8.4-10.2) mg/dL Magnesium 1.4 L (1.6-2.3) mg/dL
[2024-08-14] MEDS: ENOXAPARIN 40 MG/0.4 ML SYRINGE SQ SCH (15:10)
[2024-08-14] MEDS: lisinopriL 20 MG TAB PO SCH (15:10)
[2024-08-14 15:31] LABS: HCT 25.4 % (34.0-46.0); HGB 7.9 gm/dL (11.4-16.0); MCH 31.7 pg (25.0-35.0); MCV 102.1 fL (80.0-100.0); Macrocytosis Slight; Mean Platelet Volume 10.7; RBC 2.49 m/uL (3.80-5.40); RDW 15.1 % (11.5-15.5)
[2024-08-14 15:33] LABS: WBC 1.3 k/uL (3.8-10.6)
[2024-08-14 15:58] LABS: Neutrophils % (M) 29 %
[2024-08-14 15:59] LABS: Band Neutrophils % 4 %; Eosinophils # (M) 0.04 k/uL (0-0.7); Lymphocytes # (M) 0.65 k/uL (1.0-4.8); Monocytes # (M) 0.18 k/uL (0-1.0)
[2024-08-14 16:00] LABS: Nucleated Red Blood Cells 0 /100 WBC (0-0); Platelet Count 35 k/uL (150-450); Total Cells Counted 100
[2024-08-14] MEDS: ANASTROZOLE 1 MG TAB PO SCH (17:17)
[2024-08-14 17:23] LABS: Glucose,Whole Blood 231 mg/dL (70-110)
[2024-08-14] MEDS: PANTOPRAZOLE 40 MG TABLET PO SCH (18:15)
[2024-08-14] MEDS: INSULIN ASPART (NovoLOG) 100 UNIT/ML VIAL SQ SCH (18:35)
[2024-08-14 19:56] LABS: HCT 22.7 % (34.0-46.0); HGB 7.5 gm/dL (11.4-16.0); MCH 32.5 pg (25.0-35.0); MCHC 32.8 g/dL (31.0-37.0); MCV 99.2 fL (80.0-100.0); Macrocytosis Slight; Mean Platelet Volume 10.5; RBC 2.29 m/uL (3.80-5.40); RDW 15.2 % (11.5-15.5); WBC 1.6 k/uL (3.8-10.6)
[2024-08-14] MEDS: GABAPENTIN 300 MG CAP PO SCH (20:33)
[2024-08-14] MEDS: ESCITALOPRAM 20 MG TAB PO SCH (20:56)
[2024-08-14 20:58] LABS: Glucose,Whole Blood 124 mg/dL (70-110)
[2024-08-14 21:20] LABS: Lymphocytes # (M) 1.06 k/uL (1.0-4.8); Monocytes # (M) 0.13 k/uL (0-1.0); Neutrophils # (M) 0.42 k/uL (1.3-7.7); Neutrophils % (M) 26 %; Nucleated Red Blood Cells 0 /100 WBC (0-0); Total Cells Counted 100
[2024-08-14 21:26] LABS: Platelet Count 29 k/uL (150-450)
[2024-08-14] MEDS: ACETAMINOPHEN TAB 325 MG TAB PO PRN (21:33)
[2024-08-14 22:23] LABS: Glucose,Whole Blood 145 mg/dL (70-110)
[2024-08-14] MEDS: ALPRAZolam 0.25 MG TAB PO STA (23:55)
--- NOTE | 2024-08-15 00:28 | P.PN ---
Progress Note - Text Progress Note Date: 08/15/24 I was notified by RN that patient continues to have bloody bowel movement, decision was made to transfer to ICU instead of 3 S, but then oncall General surgery recommended transferring the patient. we initiated transfer protocol and patient was accepted by [facility] . 1 unit of blood was ordered , but the blood bank did not have matching blood type and could not be transfused. patient continues to have stable vital signs , however she dropped 3.5 gm of Hgb from baseline. q6 CBC from midnight is still pending
[2024-08-15 01:48] LABS: HCT 23.1 % (34.0-46.0); HGB 7.6 gm/dL (11.4-16.0); Hypochromasia Slight; MCH 33.5 pg (25.0-35.0); MCHC 32.8 g/dL (31.0-37.0); MCV 102.1 fL (80.0-100.0); Macrocytosis Slight; Mean Platelet Volume 9.6; RBC 2.27 m/uL (3.80-5.40); RDW 14.8 % (11.5-15.5)
[2024-08-15] MEDS ORDERED: Potassium Replacement Protocol 1 EACH MISC MISCELLANE PRN (01:54)
[2024-08-15] MEDS: POTASSIUM CHLORIDE ER 20 MEQ TAB.ER PO ONE (02:01)
[2024-08-15 02:05] LABS: Platelet Count 29 k/uL (150-450)
[2024-08-15 02:13] LABS: WBC 1.3 k/uL (3.8-10.6)
[2024-08-15] MEDS: POTASSIUM CHLORIDE 10 MEQ in WATER FOR INJECTION 1 100ML.BAG IVPB SCH (02:20)
[2024-08-15 04:49] LABS: Neutrophils % (M) 28 %
[2024-08-15 04:51] LABS: Lymphocytes # (M) 0.88 k/uL (1.0-4.8); Monocytes # (M) 0.05 k/uL (0-1.0); Neutrophils # (M) 0.36 k/uL (1.3-7.7); Nucleated Red Blood Cells 0 /100 WBC (0-0); Total Cells Counted 100
[2024-08-15 04:52] LABS: Crenated RBC Present
[2024-08-15 07:04] LABS: Glucose,Whole Blood 140 mg/dL (70-110)
[2024-08-15] MEDS ORDERED: PANTOPRAZOLE 40 MG TABLET PO SCH (07:30)
[2024-08-15] MEDS: PANTOPRAZOLE 40 MG/10 ML VIAL IVP SCH (09:26)
[2024-08-15] MEDS ORDERED: IOPAMIDOL CONTRAST (ORAL USE) VIAL PO PRN (09:35)
--- NOTE | 2024-08-15 11:35 | P.CNPUL ---
History of Present Illness Consult date: 08/15/24 Requesting physician: Ralph Dietz Reason for consult: other Chief complaint: GI bleed. History of present illness: Pulmonary consult dated August 15, 2024. This is a 74-year-old female who is seen in the emergency department, August 14. She apparently was brought in by family, because of bleeding, per rectum. Apparently her noted that she had bright red blood in her stool. The patient has a history of small cell lung cancer, diagnosed back in June of this year. It was done by my partner. The patient apparently is undergoing chemotherapy. The patient was seen in the ER, for weakness, been seen in oncology, after being discharged from the emergency room, and then sent back to the emergency room, for anemia, and GI bleed. Since she has been here, she has received 1 unit of packed red blood cells, 1 unit platelets. She is seen in room 266. The patient is on room air. She is getting saline at 20 cc an hour. Her medical history includes atrial flutter, lung cancer, COPD, diabetes, GERD, hyperlipidemia, hypertension, osteoarthritis, peripheral vascular disease, breast cancer, with radiation, and ongoing tobacco use with nicotine addiction. Current labs include a white count of 1.3, hemoglobin 7.6, macro 23.1, platelet count 29,000. The patient's sodium 136, potassium 2.5, chlorides 106, CO2 27, BUN and creatinine were 16 and 1.03. Glucose 140. The patient's magnesium was 1.4, calcium 7.6. Viral studies were negative. Review of Systems REVIEW OF SYSTEMS: CONSTITUTIONAL: Weakness. NEUROLOGIC: [ Negative.] HEENT: [ Negative.] CARDIAC: [Negative.] PULMONARY: [Negative.] GI: GI bleed. : [Negative.] RHEUMATOLOGIC: [ Negative.] IMMUNOLOGIC: [ Negative.] ENDOCRINE: [Negative. ] DERMATOLOGIC: [Negative.] Past Medical History Past Medical History: Atrial Flutter, Cancer, COPD, Diabetes Mellitus, GERD/Reflux, Hyperlipidemia, Hypertension, Osteoarthritis (OA), Vascular Disorder Additional Past Medical History / Comment(s): IDDM type II, osteoporosis, peripheral vascular disease with poor circulation involving lower extremities, urinary incontinence, previous history of epicardial wires in the heart from previous cardiac surgery, probably related to the myxoma resection. murmur. hx breast cancer- radiation complete 04/2023. current spot on lung NO LEFT ARM use. 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 Pt has claustrophobia. Past Psychological History: Anxiety, Panic Disorder Additional Psychological History / Comment(s): claustrophobic. Pt resides with spouse. Smoking Status: Current every day smoker Past Alcohol Use History: None Reported Additional Past Alcohol Use History / Comment(s): Pt now smokes 1/2 PPD and was a 2 ppd, smoked since age 19 Past Drug Use History: None Reported - Past Family History Mother Family Medical History: Diabetes Mellitus, Hyperlipidemia, Hypertension Sister(s) Family Medical History: Cancer Additional Family Medical History / Comment(s): Cervical cancer. She is . Medications and Allergies Home Medications Medication Instructions Recorded Confirmed Type Anastrozole 1 mg PO DAILY 11/20/23 08/14/24 History Escitalopram [Lexapro] 20 mg PO HS 12/23/23 08/14/24 History Esomeprazole Magnesium [NexIUM] 40 mg PO DAILY 12/23/23 08/14/24 History Potassium Chloride ER [K-Dur 20] 20 meq PO DAILY PRN 12/23/23 08/14/24 History Apixaban [Eliquis] 2.5 mg PO BID 01/10/24 08/14/24 History Enalapril [Vasotec] 20 mg PO DAILY 05/05/24 08/14/24 History Insulin Degludec [Tresiba 5 - 20 units SQ HS 05/05/24 08/14/24 History Flextouch U-100 Pen] Prochlorperazine [Compazine] 10 mg PO Q6H PRN #30 tab 05/06/24 08/14/24 Rx ALPRAZolam [Xanax] 0.125 - 0.25 mg PO BID PRN 07/30/24 08/14/24 History Furosemide [Lasix] 20 mg PO BID 07/30/24 08/14/24 History Gabapentin [Neurontin] 300 mg PO HS 07/30/24 08/14/24 History Insuln Asp Prt/Insulin Aspart See Protocol SQ AC-TID PRN 07/30/24 08/14/24 History [NovoLOG MIX 70-30 VIAL] Ondansetron [Zofran] 4 - 8 mg PO Q4-6H PRN 07/30/24 08/14/24 History hydrALAZINE HCL 25 mg PO BID 07/30/24 08/14/24 History Acetaminophen Tab [Tylenol] 650 mg PO Q6H PRN 08/14/24 08/14/24 History Magnesium 250 mg PO DAILY PRN 08/14/24 08/14/24 History oxyBUTYnin chloride [oxyBUTYnin 5 mg PO DAILY 08/14/24 08/14/24 History chloride ER] Allergies Allergy/AdvReac Type Severity Reaction Status Date / Time dog dander Allergy Runny nose Verified 08/14/24 11:27 codeine AdvReac Chest Pain Verified 08/14/24 11:27 empagliflozin AdvReac severe UTI Verified 08/14/24 11:27 [From Jardiance] metformin AdvReac Diarrhea Verified 08/14/24 11:27 pioglitazone [From Actos] AdvReac denies Verified 08/14/24 11:27 allergy semaglutide [From Ozempic] AdvReac denies Verified 08/14/24 11:27 allergy sitagliptin [From Januvia] AdvReac severe UTI Verified 08/14/24 11:27 dogs,horses,mold Allergy Runny nose Uncoded 08/14/24 11:27 Physical Exam Osteopathic Statement: *. No significant issues noted on an osteopathic structural exam other than those noted in the History and Physical/Consult. Vitals: Vital Signs Temp Pulse Resp BP Pulse Ox 08/15/24 10:00 73 9 L 157/66 100 08/15/24 09:39 97.6 F 75 18 157/56 98 08/15/24 09:00 68 16 157/85 99 08/15/24 08:00 97.6 F 78 22 159/108 100 08/15/24 07:32 97.6 F 69 15 157/85 98 08/15/24 07:12 97.6 F 72 17 159/108 97 08/15/24 07:00 72 18 148/69 98 08/15/24 06:54 97.9 F 64 16 143/79 98 08/15/24 06:00 71 19 141/72 100 08/15/24 05:00 71 16 144/77 92 L 08/15/24 04:23 97.8 F 66 16 143/70 98 08/15/24 04:03 97.8 F 64 16 150/66 97 08/15/24 04:00 97.8 F 68 18 142/78 100 08/15/24 03:53 97.7 F 67 18 142/78 100 08/15/24 03:00 66 18 141/65 100 08/15/24 02:00 69 16 122/72 100 08/15/24 01:00 67 19 104/48 98 08/15/24 00:00 66 0 L 101/60 98 08/14/24 23:00 74 18 101/57 99 08/14/24 22:25 74 19 103/64 96 08/14/24 22:24 97.9 F 78 16 91 L 08/14/24 20:59 77 18 114/51 98 08/14/24 20:00 75 18 114/56 97 08/14/24 18:46 97.6 F 08/14/24 18:00 75 20 106/57 97 08/14/24 16:00 97.8 F 74 20 105/54 96 08/14/24 13:11 97.6 F 73 20 113/49 99 Intake and Output 08/14/24 08/15/24 08/15/24 22:59 06:59 14:59 Intake Total 1140 592 Output Total 400 Balance 740 592 Intake: IV 60 Sodium Chloride 0.9% 1, 60 000 ml @ 20 mls/hr IV . Q24H [facility] Rx#:[id number] Intake, IV Titration 520 Amount Potassium Chloride 10 meq 400 In Water For Injection 1 100ml.bag @ 100 mls/hr IVPB Q1HR [facility] Rx#: [id number] Sodium Chloride 0.9% 1, 120 000 ml @ 20 mls/hr IV . Q24H [facility] Rx#:[id number] Blood Product 620 532 Platelet Pheresis Pas 0 266 Psoralen Unit [id number] As-1 Unit 310 [id number] Output: Urine 400 Other: Voiding Method Bedpan Bedpan Incontinent # Voids 1 1 # Bowel Movements 1 1 Weight 78.7 kg No acute distress, oriented 3. No respiratory distress. Currently on room air. HEENT examination is grossly unremarkable. Mucous membranes are moist. No oral lesions. Neck supple. Full range of motion. No adenopathy thyromegaly or neck vein distention. Cardiovascular examination reveals regular rhythm rate. S1-S2 normal. No S3 or S4. No discernible murmur noted. Lungs reveal mostly clear breath sounds. Minimal rhonchi. No wheezes or crackles. Breath sounds equal bilaterally. Abdomen soft bowel sounds are heard. No masses or tenderness. Extremities are intact. No cyanosis clubbing or edema. Skin is without rash or lesion. Neurologic examination is brief but nonfocal. Results - Laboratory Findings CBC and BMP: 08/15/24 00:31 08/15/24 00:31 Abnormal lab findings: Abnormal Labs 08/14/24 08/14/24 08/14/24 10:57 10:57 15:02 WBC 1.1 L* 1.3 L* RBC 2.58 L 2.49 L Hgb 8.9 L D 7.9 L Hct 26.0 L 25.4 L MCV 100.6 H 102.1 H Plt Count 35 L 35 L Neutrophils # (Manual) 0.50 L 0.40 L* Lymphocytes # (Manual) 0.50 L 0.65 L Sodium 136 L Potassium 2.5 L* Glucose 175 H POC Glucose (mg/dL) Hemoglobin A1c Calcium 7.6 L Magnesium 1.4 L Crossmatch 08/14/24 08/14/24 08/14/24 17:18 17:20 18:45 WBC RBC Hgb Hct MCV Plt Count Neutrophils # (Manual) Lymphocytes # (Manual) Sodium Potassium Glucose POC Glucose (mg/dL) 231 H Hemoglobin A1c 9.2 H Calcium Magnesium Crossmatch See Detail 08/14/24 08/14/24 08/14/24 19:33 20:55 22:21 WBC 1.6 L RBC 2.29 L Hgb 7.5 L Hct 22.7 L MCV Plt Count 29 L Neutrophils # (Manual) 0.42 L* Lymphocytes # (Manual) Sodium Potassium Glucose POC Glucose (mg/dL) 124 H 145 H Hemoglobin A1c Calcium Magnesium Crossmatch 08/15/24 08/15/24 08/15/24 00:31 00:31 07:02 WBC 1.3 L* RBC 2.27 L Hgb 7.6 L Hct 23.1 L MCV 102.1 H Plt Count 29 L Neutrophils # (Manual) 0.36 L* Lymphocytes # (Manual) 0.88 L Sodium Potassium 2.3 L* Glucose POC Glucose (mg/dL) 140 H Hemoglobin A1c Calcium Magnesium Crossmatch Assessment and Plan Assessment: Acute gastrointestinal bleed, S/P 1 unit of packed red blood cells, and 1 unit of platelets. History of small cell lung cancer, diagnosed November 2023, currently undergoing treatment. Pancytopenia, likely related to recent chemotherapy. History of COPD, with ongoing tobacco use/nicotine addiction. History of hypertension. History of hyperlipidemia. History of GERD. History of diabetes mellitus. History of atrial flutter. Multiple other medical problems and comorbidities. Plan: Plan dated August 15, 2024. The patient was admitted to the intensive care unit for further monitoring and management. She was admitted with diagnosis of weakness, possible urinary tract infection, and gastrointestinal bleed. The patient's received 1 unit of packed red blood cells, 1 unit of platelets. The patient has a diagnosis of small cell lung cancer, and is currently undergoing treatment. Her last treatment was a couple weeks back. She has chemotherapy-induced pancytopenia. She is on room air. She is getting saline at 20 cc an hour. Labs, x-rays, medications are reviewed. Prognosis is guarded. She is a DO NOT RESUSCITATE patient. Her vital signs have otherwise been stable. Time with Patient: Greater than 30
[2024-08-15 11:47] LABS: Glucose,Whole Blood 153 mg/dL (70-110)
[2024-08-15 12:03] LABS: HCT 27.4 % (34.0-46.0); MCH 32.6 pg (25.0-35.0); MCHC 32.8 g/dL (31.0-37.0); MCV 99.4 fL (80.0-100.0); Macrocytosis Slight; Mean Platelet Volume 9.5; RBC 2.75 m/uL (3.80-5.40); RDW 15.7 % (11.5-15.5)
[2024-08-15 12:08] VITALS: TEMP 97.8
[2024-08-15 12:17] LABS: INR 1.2 (<1.2); Partial Thromboplastin Time 31.1 sec (22.0-30.0); Prothrombin Time 12.6 sec (10.0-12.5)
[2024-08-15 12:40] LABS: Eosinophils # (M) 0.02 k/uL (0-0.7); Lymphocytes # (M) 0.47 k/uL (1.0-4.8); Monocytes # (M) 0.11 k/uL (0-1.0); Neutrophils % (M) 40 %; Nucleated Red Blood Cells 0 /100 WBC (0-0); Platelet Count 36 k/uL (150-450); Total Cells Counted 100
[2024-08-15 13:29] LABS: African American GFR (CKD) 70 (>60 ml/min/1.73 sqM); Anion Gap 3 mmol/L; Blood Urea Nitrogen 11 mg/dL (7-17); Calcium 7.6 mg/dL (8.4-10.2); Carbon Dioxide 26 mmol/L (22-30); Chloride 106 mmol/L (98-107); Glucose 139 mg/dL (74-99); Magnesium 1.7 mg/dL (1.6-2.3); Non-African American GFR(CKD) 61 (>60 ml/min/1.73 sqM); Sodium 135 mmol/L (137-145)
--- NOTE | 2024-08-15 13:51 | P.CONS ---
History of Present Illness - Reason for Consult Consult date: 08/15/24 Small Cell Lung Cancer - Chief Complaint Weakness - History of Present Illness Ms. Moeller is a 74-year-old woman with a past medical history significant for extensive stage small cell lung cancer who received 6 cycles of carboplatin/etoposide/atezolizumab followed by 6 cycles of maintenance atezolizu mab with disease progression with brain metastases in March 2024 status post 3 fractions of SRS in May 2024 with disease progression systemically in the lung and liver who has completed 2 cycles of lurbinectedin (cycle 2, day 1 on 08/06/2024) presenting with increased weakness and chills. She was seen in clinic on 08/14/2024 and noted having increased weakness since 08/10/2024 and was found to have possible UTI outpatient treated with antibiotics, but did not have any significant improvement. She did have 1 bloody bowel movement that morning. She did present to the ED on 08/13/2024, she was advised to stay for observation, but refused this at the time. Given the concern for possible inf ection, she was advised to present to the ED for additional management. In the ED, she was noted to have hypotension with blood pressure 85/53 with other vital signs being stable. Labs revealed WBC 1.1 (ANC 0.5), hemoglobin 8.9 (MCV 100.6), platelets 35. BMP noted hypokalemia with potassium of 2.5 with creatinine 1.03. Viral PCR was negative. She did receive potassium supplementation and was admitted to internal medicine. Since admission, she did have large bloody bowel movement. Vitals have remained stable with improvement in blood pressure to 150s over 60s. Due to GI bleed, she was recommended to be transferred to alternative facility where GI coverage was available and has been accepted to [facility] pending prior authorization. She did receive 1 unit of packed red blood cells and 1 unit of platelets. Review of Systems 14 point review of systems conducted pertinent positives and negatives as noted per HPI Past Medical History Past Medical History: Atrial Flutter, Cancer, COPD, Diabetes Mellitus, GERD/Reflux, Hyperlipidemia, Hypertension, Osteoarthritis (OA), Vascular Disor linette Additional Past Medical History / Comment(s): IDDM type II, osteoporosis, peripheral vascular disease with poor circulation involving lower extremities, urinary incontinence, previous history of epicardial wires in the heart from previous cardiac surgery, probably related to the myxoma resection. murmur. hx breast cancer- radiation complete 04/2023. current spot on lung NO LEFT ARM use. 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 Pt has claustrophobia. Past Psychological History: Anxiety, Panic Disorder Additional Psychological History / Comment(s): claustrophobic. Pt resides with spouse. Smoking Status: Current every day smoker Past Alcohol Use History: None Reported Additional Past Alcohol Use History / Comment(s): Pt now smokes 1/2 PPD and was a 2 ppd, smoked since age 19 Past Drug Use History: None Reported - Past Family History Mother Family Medical History: Diabetes Mellitus, Hyperlipidemia, Hypertension Sister(s) Family Medical History: Cancer Additional Family Medical History / Comment(s): Cervical cancer. She is . Medications and Allergies Home Medications Medication Instructions Recorded Confirmed Type Anastrozole 1 mg PO DAILY 11/20/23 08/14/24 History Escitalopram [Lexapro] 20 mg PO HS 12/23/23 08/14/24 History Esomeprazole Magnesium [NexIUM] 40 mg PO DAILY 12/23/23 08/14/24 History Potassium Chloride ER [K-Dur 20] 20 meq PO DAILY PRN 12/23/23 08/14/24 History Apixaban [Eliquis] 2.5 mg PO BID 01/10/24 08/14/24 History Enalapril [Vasotec] 20 mg PO DAILY 05/05/24 08/14/24 History Insulin Degludec [Tresiba 5 - 20 units SQ HS 05/05/24 08/14/24 History Flextouch U-100 Pen] Prochlorperazine [Compazine] 10 mg PO Q6H PRN #30 tab 05/06/24 08/14/24 Rx ALPRAZolam [Xanax] 0.125 - 0.25 mg PO BID PRN 07/30/24 08/14/24 History Furosemide [Lasix] 20 mg PO BID 07/30/24 08/14/24 History Gabapentin [Neurontin] 300 mg PO HS 07/30/24 08/14/24 History Insuln Asp Prt/Insulin Aspart See Protocol SQ AC-TID PRN 07/30/24 08/14/24 History [NovoLOG MIX 70-30 VIAL] Ondansetron [Zofran] 4 - 8 mg PO Q4-6H PRN 07/30/24 08/14/24 History hydrALAZINE HCL 25 mg PO BID 07/30/24 08/14/24 History Acetaminophen Tab [Tylenol] 650 mg PO Q6H PRN 08/14/24 08/14/24 History Magnesium 250 mg PO DAILY PRN 08/14/24 08/14/24 History oxyBUTYnin chloride [oxyBUTYnin 5 mg PO DAILY 08/14/24 08/14/24 History chloride ER] Allergies Allergy/AdvReac Type Severity Reaction Status Date / Time dog dander Allergy Runny nose Verified 08/14/24 11:27 codeine AdvReac Chest Pain Verified 08/14/24 11:27 empagliflozin AdvReac severe UTI Verified 08/14/24 11:27 [From Jardiance] metformin AdvReac Diarrhea Verified 08/14/24 11:27 pioglitazone [From Actos] AdvReac denies Verified 08/14/24 11:27 allergy semaglutide [From Ozempic] AdvReac denies Verified 08/14/24 11:27 allergy sitagliptin [From Januvia] AdvReac severe UTI Verified 08/14/24 11:27 dogs,horses,mold Allergy Runny nose Uncoded 08/14/24 11:27 Physical Exam Vitals: Vital Signs Temp Pulse Resp BP Pulse Ox 08/15/24 10:00 73 9 L 157/66 100 08/15/24 09:39 97.6 F 75 18 157/56 98 08/15/24 09:00 68 16 157/85 99 08/15/24 08:00 97.6 F 78 22 159/108 100 08/15/24 07:32 97.6 F 69 15 157/85 98 08/15/24 07:12 97.6 F 72 17 159/108 97 08/15/24 07:00 72 18 148/69 98 08/15/24 06:54 97.9 F 64 16 143/79 98 08/15/24 06:00 71 19 141/72 100 08/15/24 05:00 71 16 144/77 92 L 08/15/24 04:23 97.8 F 66 16 143/70 98 08/15/24 04:03 97.8 F 64 16 150/66 97 08/15/24 04:00 97.8 F 68 18 142/78 100 08/15/24 03:53 97.7 F 67 18 142/78 100 08/15/24 03:00 66 18 141/65 100 08/15/24 02:00 69 16 122/72 100 08/15/24 01:00 67 19 104/48 98 08/15/24 00:00 66 0 L 101/60 98 08/14/24 23:00 74 18 101/57 99 08/14/24 22:25 74 19 103/64 96 08/14/24 22:24 97.9 F 78 16 91 L 08/14/24 20:59 77 18 114/51 98 08/14/24 20:00 75 18 114/56 97 08/14/24 18:46 97.6 F 08/14/24 18:00 75 20 106/57 97 08/14/24 16:00 97.8 F 74 20 105/54 96 08/14/24 13:11 97.6 F 73 20 113/49 99 Intake and Output 08/14/24 08/15/24 08/15/24 22:59 06:59 14:59 Intake Total 1140 592 Output Total 400 Balance 740 592 Intake: IV 60 Sodium Chloride 0.9% 1, 60 000 ml @ 20 mls/hr IV . Q24H [facility] Rx#:[id number] Intake, IV Titration 520 Amount Potassium Chloride 10 meq 400 In Water For Injection 1 100ml.bag @ 100 mls/hr IVPB Q1HR [facility] Rx#: [id number] Sodium Chloride 0.9% 1, 120 000 ml @ 20 mls/hr IV . Q24H [facility] Rx#:[id number] Blood Product 620 532 Platelet Pheresis Pas 0 266 Psoralen Unit [id number] Rc As-1 Unit 310 [id number] Output: Urine 400 Other: Voiding Method Bedpan Bedpan Incontinent # Voids 1 1 # Bowel Movements 1 1 Weight 78.7 kg - Constitutional General appearance: cooperative, no acute distress - EENT Eyes: EOMI - Respiratory Nonlabored breathing - Cardiovascular Rhythm: regular Abnormal Heart Sounds: systolic murmur - Gastrointestinal General gastrointestinal: distended, hyperactive bowel sounds, soft Localized gastrointestinal: tender: diffuse - Integumentary Integumentary: pale - Neurologic Neurologic: CNII-XII intact Results CBC & Chem 7: 08/15/24 11:47 08/15/24 00:31 Labs: Abnormal Lab Results - Last 24 Hours (Table) 08/14/24 08/14/24 08/14/24 Range/Units 10:57 10:57 15:02 WBC 1.3 L* (3.8-10.6) k/uL RBC 2.49 L (3.80-5.40) m/uL Hgb 7.9 L (11.4-16.0) gm/dL Hct 25.4 L (34.0-46.0) % MCV 102.1 H (80.0-100.0) fL Plt Count 35 L 35 L (150-450) k/uL Neutrophils # (Manual) 0.50 L 0.40 L* (1.3-7.7) k/uL Lymphocytes # (Manual) 0.50 L 0.65 L (1.0-4.8) k/uL Sodium 136 L (137-145) mmol/L Potassium 2.5 L* (3.5-5.1) mmol/L Glucose 175 H (74-99) mg/dL POC Glucose (mg/dL) (70-110) mg/dL Hemoglobin A1c (<=6.0) % Calcium 7.6 L (8.4-10.2) mg/dL Magnesium 1.4 L (1.6-2.3) mg/dL Crossmatch 08/14/24 08/14/24 08/14/24 Range/Units 17:18 17:20 18:45 WBC (3.8-10.6) k/uL RBC (3.80-5.40) m/uL Hgb (11.4-16.0) gm/dL Hct (34.0-46.0) % MCV (80.0-100.0) fL Plt Count (150-450) k/uL Neutrophils # (Manual) (1.3-7.7) k/uL Lymphocytes # (Manual) (1.0-4.8) k/uL Sodium (137-145) mmol/L Potassium (3.5-5.1) mmol/L Glucose (74-99) mg/dL POC Glucose (mg/dL) 231 H (70-110) mg/dL Hemoglobin A1c 9.2 H (<=6.0) % Calcium (8.4-10.2) mg/dL Magnesium (1.6-2.3) mg/dL Crossmatch See Detail 08/14/24 08/14/24 08/14/24 Range/Units 19:33 20:55 22:21 WBC 1.6 L (3.8-10.6) k/uL RBC 2.29 L (3.80-5.40) m/uL Hgb 7.5 L (11.4-16.0) gm/dL Hct 22.7 L (34.0-46.0) % MCV (80.0-100.0) fL Plt Count 29 L (150-450) k/uL Neutrophils # (Manual) 0.42 L* (1.3-7.7) k/uL Lymphocytes # (Manual) (1.0-4.8) k/uL Sodium (137-145) mmol/L Potassium (3.5-5.1) mmol/L Glucose (74-99) mg/dL POC Glucose (mg/dL) 124 H 145 H (70-110) mg/dL Hemoglobin A1c (<=6.0) % Calcium (8.4-10.2) mg/dL Magnesium (1.6-2.3) mg/dL Crossmatch 08/15/24 08/15/24 08/15/24 Range/Units 00:31 00:31 07:02 WBC 1.3 L* (3.8-10.6) k/uL RBC 2.27 L (3.80-5.40) m/uL Hgb 7.6 L (11.4-16.0) gm/dL Hct 23.1 L (34.0-46.0) % MCV 102.1 H (80.0-100.0) fL Plt Count 29 L (150-450) k/uL Neutrophils # (Manual) 0.36 L* (1.3-7.7) k/uL Lymphocytes # (Manual) 0.88 L (1.0-4.8) k/uL Sodium (137-145) mmol/L Potassium 2.3 L* (3.5-5.1) mmol/L Glucose (74-99) mg/dL POC Glucose (mg/dL) 140 H (70-110) mg/dL Hemoglobin A1c (<=6.0) % Calcium (8.4-10.2) mg/dL Magnesium (1.6-2.3) mg/dL Crossmatch Assessment and Plan (1) Acute GI hemorrhage Current Visit: Yes Status: Acute Code(s): K92.2 - GASTROINTESTINAL HEMORRHAGE, UNSPECIFIED SNOMED Code(s): 00724995 (2) Pancytopenia due to antineoplastic chemotherapy Current Visit: Yes Status: Acute Code(s): D61.810 - ANTINEOPLASTIC CHEMOTHERAPY INDUCED PANCYTOPENIA; T45.1X5A - ADVERSE EFFECT OF ANTINEOPLASTIC AND IMMUNOSUP DRUGS, INIT SNOMED Code(s): 793172813864781 (3) Extensive stage primary small cell carcinoma of lung Current Visit: Yes Status: Acute Code(s): C34.90 - MALIGNANT NEOPLASM OF UNSP PART OF UNSP BRONCHUS OR LUNG SNOMED Code(s): 694991503963080 Plan: #GI bleed -Had 1 bloody bowel movement prior to presentation and 1 since admission -Hemoglobin this morning at 7.6 and was 8.9 on initial presentation. Hemoglobin was 10.8 on 08/06/2024 when she received cycle 2 of chemotherapy -She is having acute anemia secondary to GI blood loss superimposed on anemia secondary to chemotherapy -She has been started on IV pantoprazole twice daily and is awaiting transfer to [facility] for additional management through gastroenterology -GI bleed is likely being precipitated by thrombocytopenia secondary to chemotherapy with platelets of 29 -She received 1 unit of pheresis platelets and 1 unit of irradiated packed red blood cells were ordered today with pending coagulation studies -Goal transfusion of hemoglobin greater than 8 and platelets greater than or equal to 50 #Pancytopenia -Secondary to lurbinectedin chemotherapy for extensive stage small cell lung cancer -1 unit of pheresis platelets and 1 unit irradiated packed red blood cells ordered as above -Iron studies, vitamin B12, and folic acid to be added onto blood work from admission #Extensive stage small cell lung cancer -Currently day 10, cycle 2 of lurbinectedin -Progressed on first-line carboplatin/etoposide/atezolizumab -Following resolution of acute GI bleeding, we will likely need to have goals of care discussion regarding additional treatment Jose Angel De Jesus MD
[2024-08-15 13:52] LABS: Potassium 2.7 mmol/L (3.5-5.1)
[2024-08-15] MEDS: MAGNESIUM SULFATE-D5W PMX 1 GM in DEXTROSE/WATER 1 100ML.BAG IVPB SCH (14:48)
[2024-08-15] MEDS: POTASSIUM CHLORIDE ER 20 MEQ TAB.ER PO STA (14:49)
--- NOTE | 2024-08-15 15:15 | CT ---
EXAMINATION TYPE: CT angio abdomen pelvis DATE OF EXAM: 08/15/2024 2:23 PM COMPARISON: 06/19/2024 CLINICAL INDICATION: Female, 74 years old with history of abd pain and GI bleed; PHH, GI bleed protoc ol- rectal bleeding TECHNIQUE: Multiple thin slice sub-millimeter images were obtained after administration of contrast. 3-D reconstructed images and maximum intensity projection images were obtained. CT angio abdomen pel vis CT Contrast: Contrast used:100 mL of Isovue 370 with IV Contrast, Oral contrast used: without Oral Contrast None CT DLP: 1327.6 mGycm, Automated exposure control for dose reduction was used. FINDINGS: CTA Abdomen and pelvis: Aneurysmal dilation of the infrarenal abdominal aorta up tor 3.8 cm and measu ring transverse is scattered atherosclerotic ulcer is present.. Atherosclerotic plaquing is identifi ed within the abdominal aorta. The origins of the superior mesenteric artery, renal arteries, inferi or mesenteric artery, and celiac axis are patent. The iliac vessels are normal in morphology LOWER CHEST: No evidence of focal consolidation, pneumothorax or pleural effusion. LIVER: Diffuse low density areas scattered throughout the liver which is hard to compare to prior giv en differences in bolus timing. GALLBLADDER AND BILE DUCTS: Unremarkable. PANCREAS: Unremarkable. SPLEEN: Unremarkable. ADRENAL GLANDS: Unremarkable. KIDNEYS AND URETERS: No evidence of hydronephrosis or renal calculus. The ureters are unremarkable. Bilateral simple appearing renal cysts. PELVIS BLADDER: Unremarkable REPRODUCTIVE: Unremarkable. ABDOMEN & PELVIS STOMACH AND BOWEL: Circumferential wall thickening of the internal ear: More pronounced in the rectum with focal eccentric wall thickening up to 15 mm. Evaluation of the gastrointestinal tract demonstra melissa no evidence of high density hemorrhage on arterial phase or pooling of blood on delayed phases. N o evidence of bowel obstruction. Scattered colonic diverticula present. PERITONEUM: No evidence for pneumoperitoneum. Small amount of streaky edema/free fluid in the pelvis likely reactive to other findings in the abdomen. MUSCULOSKELETAL: Moderate disc degeneration changes are present throughout the thoracolumbar spine. P ostsurgical changes to the spine L5-S1. LYMPH NODES: No gross evidence for lymphadenopathy. SOFT TISSUE/ABDOMINAL WALL: Unremarkable IMPRESSION: 1. 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 Correlate for Pseudomonas colitis. No evidence for ga strointestinal hemorrhage. 2. Colonic diverticulosis. 3. Infrarenal abdominal aortic aneurysm measuring up to 4.4 cm similar prior. 4. Innumerable hepatic lesions present as seen on prior. Measurements and evaluation for progression somewhat limited given phase of contrast. 5. Atherosclerotic disease involving abdominal aorta and lower extremity vasculature. [facility], , 08/15/2024 3:12 PM
[2024-08-15] MEDS: POTASSIUM CHLORIDE 10 MEQ in WATER FOR INJECTION 1 100ML.BAG IVPB STA (15:22)
[2024-08-15] MEDS: POTASSIUM CHLORIDE ER 20 MEQ TAB.ER PO SCH (15:23)
[2024-08-15 15:42] VITALS: BP 159/69; PULSE 86; RESP 6
[2024-08-15] MEDS ORDERED: FILGRASTIM-SNDZ 480 MCG/0.8 ML SYRINGE SQ STA (15:59)
[2024-08-15] MEDS ORDERED: PIPERACILLIN-TAZOBACTAM 3.375 GM in SODIUM CHLORIDE 0.9% 100 ML IVPB SCH (16:00)
--- NOTE | 2024-08-15 16:13 | P.PN ---
Subjective Progress Note Date: 08/15/24 Subjective: Patient seen and examined at the bedside. Patient had multiple bloody bowel movements overnight status post 1 unit of packed RBC and 1 unit of platelets. Patient hemodynamically stable. Complaining of mild generalized abdominal pain otherwise no other complaints. All Systems reviewed and pertinent positives and negatives noted in HPI, all other symptoms are negative Objective: Vital signs reviewed. General: non toxic, no distress, appears at stated age, normal weight Derm: Multiple large ecchymotic lesions on upper and lower extremities, sacral decubitus ulcer Head: atraumatic, normocephalic, symmetric Eyes: EOMI, no lid lag, anicteric sclera, pupils equal round reactive to light ENT: Nose and ears atraumatic Neck: No cervical lymphadenopathy, trachea midline, supple Mouth: no lip lesion, mucus membranes moist Cardiovascular: S1S2 reg, no murmur, positive dorsalis pedis pulse bilateral, no edema Lungs: CTA bilateral, no rhonchi, no rales, no accessory muscle use Abdominal: soft, mild tenderness to deep palpation , no guarding Ext: muscle strength 5 out of 5 in all 4 extremities grossly, no gross muscle atrophy, no contractures, Neuro: CN II-XI grossly intact, no gross focal neuro deficits Psych: Alert, oriented, appropriate affect Data reviewed today: Labs: WBC 1.3, hemoglobin 7.6, hematocrit 23.1, MCV 102, platelet count 29, potassium 2.3, sodium 135, creatinine 0.94 Images: CT abdomen/pelvis shows no evidence for GI hemorrhage. Pancolitis of the large bowel and colonic diverticulosis. 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 Patient is admitted for further evaluation for metabolic derangement and acute GI bleed. Patient to be transferred to [facility] for further management. # Pancolitis # Metabolic derangements: Hypokalemia and hypomagnesemia # Acute blood loss anemia superimposed on pancytopenia secondary to bone marrow suppression from chemo/immunotherapy #History of SCLC status post chemoradiation Status post 1 unit of packed RBC and 1 unit of platelets Order CBC every 6 hour, maintain large-bore IV access, active type and screen CT abdomen/pelvis shows no evidence of GI hemorrhage, but did show evidence of pancolitis Transfusion if hemoglobin less than 7 and/or active bleeding transfuse for target platelet count of 50,000 Oncology consulted GI prophylaxis with IV Protonix 40 mg twice daily Potassium and magnesium replacement as needed Continue cardiac telemetry Repeat BMP in the afternoon Magnesium 1.4 Order 2 g of IV magnesium Continue monitor magnesium Repeat magnesium in the afternoon #Hyperglycemia #History of type 2 diabetes Glucose 175 Accu-Cheks and sliding scale insulin HbA1c 9.1 Chronic conditions Hypertension, resume enalapril 20 mg p.o. daily DVT prophylaxis: SCDs The patient is admitted with an anticipated more than 2 midnight stay for evaluation of generalized weakness CODE STATUS: No code Discussed with: Patient Anticipated discharge place: Transfer to [facility] I saw and evaluated the patient during the mike and critical portions of this encounter, and discussed the case in detail with the resident author of this note, I agree with the Assessment and Plan, and my changes, if any, are highlighted in blue. Additional addendum: I discussed this patient with [facility] and patient was accepted to transfer to the medical ICU for ongoing GI bleed with pancytopenia. CT abdomen/pelvis did demonstrate findings of pancolitis with differentials including infectious colitis versus neutropenic enterocolitis. I subsequently discussed this case with hematology on-call, which feel the likelihood of neutropenic enterocolitis is minimal considering the patient did not have any fevers and her abdominal pain is not a significant component of her exam, however, we will empirically treat her with G-CSF, and start her on Zosyn prior to transfer. Objective - Vital Signs Vital signs: Vital Signs Temp 97.8 F 08/15/24 12:00 Pulse 77 08/15/24 12:00 Resp 19 08/15/24 12:00 BP 153/76 08/15/24 12:00 Pulse Ox 100 08/15/24 12:00 FiO2 Intake & Output 08/14/24 08/15/24 08/15/24 18:59 06:59 18:59 Intake Total 1140 632 Output Total 400 Balance 740 632 Weight 73.482 kg 78.7 kg Intake: IV 100 Sodium Chloride 0.9% 1, 100 000 ml @ 20 mls/hr IV . Q24H [facility] Rx#:[id number] Intake, IV Titration 520 Amount Potassium Chloride 10 meq 400 In Water For Injection 1 100ml.bag @ 100 mls/hr IVPB Q1HR [facility] Rx#: [id number] Sodium Chloride 0.9% 1, 120 000 ml @ 20 mls/hr IV . Q24H [facility] Rx#:[id number] Blood Product 620 532 Platelet Pheresis Pas 0 266 Psoralen Unit [id number] Rc As-1 Unit 310 [id number] Output: Urine 400 Other: Voiding Method Bedpan Bedpan Incontinent # Voids 1 1 # Bowel Movements 1 2 - Labs CBC & Chem 7: 08/15/24 11:47 08/15/24 11:47 Labs: Abnormal Lab Results - Last 24 Hours (Table) 08/14/24 08/14/24 08/14/24 Range/Units 10:57 15:02 17:18 WBC 1.3 L* (3.8-10.6) k/uL RBC 2.49 L (3.80-5.40) m/uL Hgb 7.9 L (11.4-16.0) gm/dL Hct 25.4 L (34.0-46.0) % MCV 102.1 H (80.0-100.0) fL Plt Count 35 L (150-450) k/uL Neutrophils # (Manual) 0.40 L* (1.3-7.7) k/uL Lymphocytes # (Manual) 0.65 L (1.0-4.8) k/uL Sodium 136 L (137-145) mmol/L Potassium 2.5 L* (3.5-5.1) mmol/L Glucose 175 H (74-99) mg/dL POC Glucose (mg/dL) (70-110) mg/dL Hemoglobin A1c 9.2 H (<=6.0) % Calcium 7.6 L (8.4-10.2) mg/dL Magnesium 1.4 L (1.6-2.3) mg/dL Crossmatch 08/14/24 08/14/24 08/14/24 Range/Units 17:20 18:45 19:33 WBC 1.6 L (3.8-10.6) k/uL RBC 2.29 L (3.80-5.40) m/uL Hgb 7.5 L (11.4-16.0) gm/dL Hct 22.7 L (34.0-46.0) % MCV (80.0-100.0) fL Plt Count 29 L (150-450) k/uL Neutrophils # (Manual) 0.42 L* (1.3-7.7) k/uL Lymphocytes # (Manual) (1.0-4.8) k/uL Sodium (137-145) mmol/L Potassium (3.5-5.1) mmol/L Glucose (74-99) mg/dL POC Glucose (mg/dL) 231 H (70-110) mg/dL Hemoglobin A1c (<=6.0) % Calcium (8.4-10.2) mg/dL Magnesium (1.6-2.3) mg/dL Crossmatch See Detail 08/14/24 08/14/24 08/15/24 Range/Units 20:55 22:21 00:31 WBC 1.3 L* (3.8-10.6) k/uL RBC 2.27 L (3.80-5.40) m/uL Hgb 7.6 L (11.4-16.0) gm/dL Hct 23.1 L (34.0-46.0) % MCV 102.1 H (80.0-100.0) fL Plt Count 29 L (150-450) k/uL Neutrophils # (Manual) 0.36 L* (1.3-7.7) k/uL Lymphocytes # (Manual) 0.88 L (1.0-4.8) k/uL Sodium (137-145) mmol/L Potassium (3.5-5.1) mmol/L Glucose (74-99) mg/dL POC Glucose (mg/dL) 124 H 145 H (70-110) mg/dL Hemoglobin A1c (<=6.0) % Calcium (8.4-10.2) mg/dL Magnesium (1.6-2.3) mg/dL Crossmatch 08/15/24 08/15/24 08/15/24 Range/Units 00:31 07:02 11:46 WBC (3.8-10.6) k/uL RBC (3.80-5.40) m/uL Hgb (11.4-16.0) gm/dL Hct (34.0-46.0) % MCV (80.0-100.0) fL Plt Count (150-450) k/uL Neutrophils # (Manual) (1.3-7.7) k/uL Lymphocytes # (Manual) (1.0-4.8) k/uL Sodium (137-145) mmol/L Potassium 2.3 L* (3.5-5.1) mmol/L Glucose (74-99) mg/dL POC Glucose (mg/dL) 140 H 153 H (70-110) mg/dL Hemoglobin A1c (<=6.0) % Calcium (8.4-10.2) mg/dL Magnesium (1.6-2.3) mg/dL Crossmatch
--- NOTE | 2024-08-17 16:49 | P.DS ---
Providers Date of admission: 08/14/24 13:08 Expected date of discharge: 08/17/24 Attending physician: Ralph Dietz MD Consults: 08/14/24 13:07 Consult Physician Routine Consulting Provider: Jose Angel De Jesus Consult Reason/Comments: lung cancer Do you want consulting provider notified?: Yes 08/14/24 22:00 Consult Physician Routine Consulting Provider: Ralph Dietz Consult Reason/Comments: ICU treatment Do you want consulting provider notified?: Already Contacted 08/15/24 07:49 Consult Physician Routine Consulting Provider: Terrence Daniels Consult Reason/Comments: ICU management Do you want consulting provider notified?: Already Contacted [facility] Course: # Pancolitis # Metabolic derangements: Hypokalemia and hypomagnesemia # Acute blood loss anemia superimposed on pancytopenia secondary to bone marrow suppression from chemo/immunotherapy #History of SCLC status post chemoradiation #Hyperglycemia #History of type 2 diabetes Hospital course: Patient is a 74-year-old female with 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 Patient is admitted for further evaluation for metabolic derangement and acute GI bleed. Patient was noted to have multiple bloody bowel movements and was ultimately transitioned to the intensive care unit due to concern for significant GI bleed. She required 1 unit of packed red blood cells and 1 unit of platelets and her bleeding slowed down. She underwent CT abdomen/pelvis which demonstrated findings of pancolitis. Recommendations were made for transfer to [facility] given patient's medical comorbidities with likely need for endoscopic intervention, and was excepted by [facility] and subsequently transferred there for further management. Again, I discussed this patient with [facility] and patient was accepted to transfer to the medical ICU for ongoing GI bleed with pancytopenia. CT abdomen/pelvis did demonstrate findings of pancolitis with differentials incl uding infectious colitis versus neutropenic enterocolitis. I subsequently discussed this case with hematology on-call, which feel the likelihood of neutropenic enterocolitis is minimal considering the patient did not have any fevers and her abdominal pain is not a significant component of her exam, however, we will empirically treated her with G-CSF, and started her on Zosyn prior to transfer. Patient Condition at Discharge: Critical Plan - Discharge Summary Discharge Rx Participant: No New Discharge Prescriptions: No Action Esomeprazole Magnesium [NexIUM] 40 mg PO DAILY Apixaban [Eliquis] 2.5 mg PO BID Enalapril [Vasotec] 20 mg PO DAILY Ondansetron [Zofran] 4 - 8 mg PO Q4-6H PRN PRN Reason: Nausea And Vomiting Gabapentin [Neurontin] 300 mg PO HS hydrALAZINE HCL 25 mg PO BID ALPRAZolam [Xanax] 0.125 - 0.25 mg PO BID PRN PRN Reason: Anxiety oxyBUTYnin chloride [oxyBUTYnin chloride ER] 5 mg PO DAILY Acetaminophen Tab [Tylenol] 650 mg PO Q6H PRN PRN Reason: Fever And/ Or Pain Magnesium 250 mg PO DAILY PRN PRN Reason: AFTER CHEMO Anastrozole 1 mg PO DAILY Potassium Chloride ER [K-Dur 20] 20 meq PO DAILY PRN PRN Reason: AFTER CHEMO Escitalopram [Lexapro] 20 mg PO HS Insulin Degludec [Tresiba Flextouch U-100 Pen] 5 - 20 units SQ HS Prochlorperazine [Compazine] 10 mg PO Q6H PRN #30 tab PRN Reason: Nausea Insuln Asp Prt/Insulin Aspart [NovoLOG MIX 70-30 VIAL] See Protocol SQ AC-TID PRN PRN Reason: Blood Sugar - High Furosemide [Lasix] 20 mg PO BID Discharge Medication List Anastrozole 1 mg PO DAILY 11/20/23 [History] Escitalopram [Lexapro] 20 mg PO HS 12/23/23 [History] Esomeprazole Magnesium [NexIUM] 40 mg PO DAILY 12/23/23 [History] Potassium Chloride ER [K-Dur 20] 20 meq PO DAILY PRN 12/23/23 [History] Apixaban [Eliquis] 2.5 mg PO BID 01/10/24 [History] Enalapril [Vasotec] 20 mg PO DAILY 05/05/24 [History] Insulin Degludec [Tresiba Flextouch U-100 Pen] 5 - 20 units SQ HS 05/05/24 [History] Prochlorperazine [Compazine] 10 mg PO Q6H PRN #30 tab 05/06/24 [Rx] ALPRAZolam [Xanax] 0.125 - 0.25 mg PO BID PRN 07/30/24 [History] Furosemide [Lasix] 20 mg PO BID 07/30/24 [History] Gabapentin [Neurontin] 300 mg PO HS 07/30/24 [History] Insuln Asp Prt/Insulin Aspart [NovoLOG MIX 70-30 VIAL] See Protocol SQ AC-TID PRN 07/30/24 [History] Ondansetron [Zofran] 4 - 8 mg PO Q4-6H PRN 07/30/24 [History] hydrALAZINE HCL 25 mg PO BID 07/30/24 [History] Acetaminophen Tab [Tylenol] 650 mg PO Q6H PRN 08/14/24 [History] Magnesium 250 mg PO DAILY PRN 08/14/24 [History] oxyBUTYnin chloride [oxyBUTYnin chloride ER] 5 mg PO DAILY 08/14/24 [History] Follow up Appointment(s)/Referral(s): Jaden Barajas DO [Primary Care Provider] - 1-2 days Discharge Disposition: TRANSFER TO [facility]
== END 2024-08-15 15:55 | disposition short-term general hospital (02) | DRG 391 ==
LOC: EC 09:45 → 5NMEDONC 13:08 → 3SCARD 15:51 → 2SICU 21:28
PROVIDERS: ADMIT Internal Medicine; ATTEND Internal Medicine
PROC: 30233N1 Transfusion of Nonautologous Red Blood Cells into Peripheral Vein, Percutaneous Approach (ICD-10-PCS; principal; 2024-08-15)
PROC: 30233R1 Transfusion of Nonautologous Platelets into Peripheral Vein, Percutaneous Approach (ICD-10-PCS; 2024-08-15)
DX: K52.9 Noninfective gastroenteritis and colitis, unspecified (principal); D61.810 Antineoplastic chemotherapy induced pancytopenia; D62 Acute posthemorrhagic anemia; C79.31 Secondary malignant neoplasm of brain; K92.1 Melena; J44.9 Chronic obstructive pulmonary disease, unspecified; I48.91 Unspecified atrial fibrillation; E11.65 Type 2 diabetes mellitus with hyperglycemia; E78.5 Hyperlipidemia, unspecified; E83.42 Hypomagnesemia; E87.6 Hypokalemia; F17.210 Nicotine dependence, cigarettes, uncomplicated; F40.240 Claustrophobia; F41.0 Panic disorder [episodic paroxysmal anxiety]; M81.0 Age-related osteoporosis without current pathological fracture; E11.51 Type 2 diabetes mellitus with diabetic peripheral angiopathy without gangrene; T45.1X5A Adverse effect of antineoplastic and immunosuppressive drugs, initial encounter; I10 Essential (primary) hypertension; Z79.01 Long term (current) use of anticoagulants; Z79.4 Long term (current) use of insulin; Z79.811 Long term (current) use of aromatase inhibitors; Z79.899 Other long term (current) drug therapy; Z85.118 Personal history of other malignant neoplasm of bronchus and lung; Z85.3 Personal history of malignant neoplasm of breast; Z92.3 Personal history of irradiation
CPT/HCPCS: 36415; 74174; 80048; 82746; 83036; 83735; 84132; 85025; 85610; 85730; 86850; 86900; 86901; 86920; 87040; 87636; 93005; 96361; 96365; 96366; 96367; 96368; 96372; 96375; 99285

== ENCOUNTER 2024-08-31 07:39 | Inpatient (IN) | payer MEDICARE, OTHER ==
--- NOTE | 2024-08-31 08:00 | ED ---
General Adult HPI - General Chief complaint: Nausea/Vomiting/Diarrhea Stated complaint: Nausea Time Seen by Provider: 08/31/24 07:48 Source: patient, EMS, RN notes reviewed, old records reviewed - History of Present Illness Initial comments: Patient is a 74-year-old female who presents emergency department complaining of generalized weakness, lightheadedness, nausea and vomiting. Symptoms started last night and progressively got worse which is why she presents for further evaluation. She is currently undergoing chemotherapy for lung cancer and has a history of brain cancer as well as atrial flutter, hypertension, COPD, diabetes, hyperlipidemia. Denies any chest pain, shortness of breath, abdominal pain. Denies any diarrhea. This has occurred previously after receiving chemotherapy which has typically been secondary to electrolyte abnormalities and she has been admitted in the past as well. Patient is wheelchair-bound at baseline. Denies any focal deficits just generalized feeling of weakness. Denies any room spinning sensation. Denies any sensory deficits. Has no other acute complaints at this time. Presents for further evaluation at this time. Is currently not on blood thinners. Does have a history of multiple falls in the last few weeks. No recent falls. - Related Data Home Medications Medication Instructions Recorded Confirmed Anastrozole 1 mg PO DAILY@1100 11/20/23 08/31/24 Escitalopram [Lexapro] 20 mg PO HS@1800 12/23/23 08/31/24 Esomeprazole Magnesium [NexIUM] 40 mg PO DAILY@1100 12/23/23 08/31/24 Insulin Degludec [Tresiba 5 - 20 units SQ HS PRN 05/05/24 08/31/24 Flextouch U-100 Pen] ALPRAZolam [Xanax] 0.125 - 0.25 mg PO BID PRN 07/30/24 08/31/24 Furosemide [Lasix] 20 mg PO DAILY@1100 07/30/24 08/31/24 HYDROcodone/APAP 5-325MG [[place] 1 tab PO Q6H PRN 08/31/24 08/31/24 5-325] Loperamide [Imodium] 2 - 4 mg PO QID PRN 08/31/24 08/31/24 Previous Rx's Medication Instructions Recorded Prochlorperazine [Compazine] 10 mg PO Q6H PRN #30 tab 05/06/24 Allergies Allergy/AdvReac Type Severity Reaction Status Date / Time dog dander Allergy Runny nose Verified 08/31/24 10:00 horse dander Allergy Runny nose Verified 08/31/24 10:00 mold Allergy Runny nose Verified 08/31/24 10:00 codeine AdvReac Chest Pain Verified 08/31/24 10:00 empagliflozin AdvReac severe UTI Verified 08/31/24 10:00 [From Jardiance] gabapentin AdvReac Confusion Verified 08/31/24 10:00 metformin AdvReac Diarrhea Verified 08/31/24 10:00 pioglitazone [From Actos] AdvReac denies Verified 08/31/24 10:00 allergy semaglutide [From Ozempic] AdvReac denies Verified 08/31/24 10:00 allergy sitagliptin [From Januvia] AdvReac severe UTI Verified 08/31/24 10:00 dogs,horses,mold Allergy Runny nose Uncoded 08/31/24 10:00 Review of Systems ROS Statement: Those systems with pertinent positive or pertinent negative responses have been documented in the HPI. Review of Systems: CONST: Denies fever EYES: Denies blurry vision ENT: Denies nasal congestion C/V: Denies Chest pain RESP: Denies shortness of breath GI: Denies abdominal pain : Denies dysuria SKIN: Denies rash. MSK: Denies joint pain. NEURO: Denies headache ROS Other: All systems not noted in ROS Statement are negative. 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 murmur. hx breast cancer- radiation complete 04/2023. current spot on lung NO LEFT ARM use. 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 Pt has claustrophobia. Past Psychological History: Anxiety, Panic Disorder Smoking Status: Current every day smoker Past Alcohol Use History: None Reported Past Drug Use History: None Reported - Past Family History Mother Family Medical History: Diabetes Mellitus, Hyperlipidemia, Hypertension Sister(s) Family Medical History: Cancer Additional Family Medical History / Comment(s): Cervical cancer. She is . General Exam - General Exam Comments Initial Comments: General: Appears in no acute distress. HEAD: Normal with no signs of head trauma. EYES: PERRLA, EOMI, conjunctiva normal, no discharge. Pupils are 3 mm and equal bilaterally. ENT: Hearing grossly intact, normal oropharynx. RESPIRATORY: Clear breath sounds bilaterally. No wheezes, rales, or rhonchi. C/V: Regular rate and rhythm. S1 and S2 auscultated, chronic lower extremity edema., peripheral pulses 2+ and intact throughout ABD: Abd is soft, nontender, nondistended EXT: No obvious deformity. SKIN: No rashes or lesions observed on exposed skin. NEURO: Alert and oriented x 4. No focal sensory or strength deficits. NIH is 0. Has chronic lower extremity weakness. Cerebellar function is intact as evident by normal finger-nose testing. GCS of 15. Course Vital Signs 08/31/24 08/31/24 08/31/24 07:40 11:23 12:41 Temperature 98.0 F Pulse Rate 85 67 67 Respiratory 16 18 18 Rate Blood Pressure 125/84 127/65 131/80 O2 Sat by Pulse 96 97 99 Oximetry 08/31/24 08/31/24 15:15 16:05 Temperature Pulse Rate 68 62 Respiratory 16 17 Rate Blood Pressure 117/55 111/54 O2 Sat by Pulse 100 99 Oximetry Medical Decision Making - Medical Decision Making Was pt. sent in by a medical professional or institution ([facility], AIRBRUSH PAINTER, urgent care, hospital, or [place] [facility] facility...) When possible be specific @ -No Did you speak to anyone other than the patient for history (EMS, parent, family, police, friend...)? What history was obtained from this source @ -Patient's daughter and corroborated the patient's story. Did you review nursing and triage notes (agree or disagree)? Why? @ -I reviewed and agree with nursing and triage notes Were old charts reviewed (outside hosp., previous admission, EMS record, old EKG, old radiological studies, urgent care reports/EKG's, [place] [facility] records)? Report findings @ -Reviewed charts from recent visits from July and August 2024 for similar complaints of weakness, lethargy. Diagnosed with UTI on August 14. Differential Diagnosis (chest pain, altered mental status, abdominal pain women, abdominal pain men, vaginal bleeding, weakness, fever, dyspnea, syncope, headache, dizziness, GI bleed, back pain, seizure, CVA, palpatations, mental health, musculoskeletal)? @ -Differential Weakness: Hypoglycemia, shock, sepsis, hyponatremia, anemia, infection, VA, ETOH, adverse medicine reaction, overdose, stroke, this is not meant to be an all-inclusive list. EKG interpreted by me (3pts min.). @ -As above X-rays interpreted by me (1pt min.). @ -Chest x-ray shows no obvious acute cardiopulmonary process. CT interpreted by me (1pt min.). @ -CT brain shows no obvious acute intracranial process. U/S interpreted by me (1pt. min.). @ -None done What testing was considered but not performed or refused? (CT, X-rays, U/S, labs)? Why? @ -None What meds were considered but not given or refused? Why? @ -None Did you discuss the management of the patient with other professionals (professionals i.e. , PA, AIRBRUSH PAINTER, lab, RT, psych nurse, psychosocial rehabilitation counselor, laundry machine mechanic, teacher, low altitude air defense officer, case investigator)? Give summary @ -Discussed with the admitting provider, Dr. Parson who accepted the admission. Was smoking cessation discussed for >3mins.? @ -No Was critical care preformed (if so, how long)? @ -No Were there social determinants of health that impacted care today? How? (Homelessness, low income, unemployed, alcoholism, drug addiction, tra nsportation, low edu. Level, literacy, decrease access to med. care, longterm, rehab)? @ -No Was there de-escalation of care discussed even if they declined (Discuss DNR or withdrawal of care, Hospice)? DNR status @ -No What co-morbidities impacted this encounter? (DM, HTN, Smoking, COPD, CAD, Cancer, CVA, ARF, Chemo, Hep., AIDS, mental health diagnosis, sleep apnea, morbid obesity)? @ -Cancer currently on chemotherapy Was patient admitted / discharged? Hospital course, mention meds given and rou te, prescriptions, significant lab abnormalities, going to OR and other pertinent info. @ -Based on the patient's presentation and physical exam, presents emergency department with weakness, lightheadedness, nausea and vomiting. Started last night and continued into it this morning. This has happened previously and it is usually secondary to her receiving her chemotherapy for her cancer which she felt within the last week. Denies any other acute complaints at this time. We will obtain generalized workup, and also discussed obtaining CT brain as she does have a history of brain cancer and she was in agreement this plan. Vitals are within acceptable limits at this time. No other acute complaints. She will be given 1 L fluid bolus, IV Zofran, IV Protonix, as well as meclizine. EKG showed no signs of acute ischemia.Imaging unremarkable. Laboratory studies remarkable for hypokalemia of 1.9 as well as hypomagnesemia of 1.1. Patient is dehydrated as evident by elevated lactic acid of 2.8. Urine is still pending at this time. Remainder the workup unremarkable. At this time, patient will be admitted to the hospital. Supplemental magnesium as well as patient potassium will be administered to the patient. Patient was in agreement this plan. I spoke with Dr. Parson accepted the admission. When completing the chart and reevaluate in the patient's labs, urinalysis retur derrick positive for UTI. Urine culture was ordered by myself and I start the patient on Rocephin. Patient was already admitted at this time. Undiagnosed new problem with uncertain prognosis? @ -No Drug Therapy requiring intensive monitoring for toxicity (Heparin, Nitro, Insulin, Cardizem)? @ -No Were any procedures done? @ -No Diagnosis/symptom? @ -Hypokalemia, hypomagnesemia, dehydration, UTI Acute, or Chronic, or Acute on Chronic? @ -Acute Uncomplicated (without systemic symptoms) or Complicated (systemic symptoms)? @ -Complicated Side effects of treatment? @ -None Exacerbation, Progression, or Severe Exacerbation] @ -No Poses a threat to life or bodily function? @ -Yes - Lab Data Result diagrams: 08/31/24 08:34 08/31/24 08:34 Lab Results 08/31/24 08/31/24 08/31/24 Range/Units 08:34 08:34 08:34 WBC 3.1 L (3.8-10.6) k/uL RBC 3.57 L (3.80-5.40) m/uL Hgb 11.4 (11.4-16.0) gm/dL Hct 35.5 (34.0-46.0) % MCV 99.5 (80.0-100.0) fL MCH 32.1 (25.0-35.0) pg MCHC 32.2 (31.0-37.0) g/dL RDW 16.9 H (11.5-15.5) % Plt Count 138 L D (150-450) k/uL MPV 7.7 Neutrophils % 73 % Lymphocytes % 22 % Monocytes % 1 % Eosinophils % 2 % Basophils % 0 % Neutrophils # 2.2 (1.3-7.7) k/uL Lymphocytes # 0.7 L (1.0-4.8) k/uL Monocytes # 0.0 (0-1.0) k/uL Eosinophils # 0.1 (0-0.7) k/uL Basophils # 0.0 (0-0.2) k/uL Anisocytosis Slight Macrocytosis Slight PT 12.7 H (10.0-12.5) sec INR 1.2 H (<1.2) APTT 25.2 (22.0-30.0) sec Sodium (137-145) mmol/L Potassium (3.5-5.1) mmol/L Chloride (98-107) mmol/L Carbon Dioxide (22-30) mmol/L Anion Gap mmol/L BUN (7-17) mg/dL Creatinine (0.52-1.04) mg/dL Est GFR (CKD-EPI)AfAm (>60 ml/min/1.73 sqM) Est GFR (CKD-EPI)NonAf (>60 ml/min/1.73 sqM) Glucose (74-99) mg/dL Lactic Ac Sepsis Rflx Plasma Lactic Acid [place] (0.7-2.0) mmol/L Calcium (8.4-10.2) mg/dL Magnesium (1.6-2.3) mg/dL Total Bilirubin (0.2-1.3) mg/dL AST (14-36) U/L ALT (4-34) U/L Alkaline Phosphatase (38-126) U/L Total Protein (6.3-8.2) g/dL Albumin (3.5-5.0) g/dL Urine Color Yellow Urine Appearance Cloudy H (Clear) Urine pH 5.5 (5.0-8.0) Ur Specific [place] 1.010 (1.001-1.035) Urine Protein Trace H (Negative) Urine Glucose (UA) Negative (Negative) Urine Ketones Negative (Negative) Urine Blood Negative (Negative) Urine Nitrite Positive H (Negative) Urine Bilirubin Negative (Negative) Urine Urobilinogen <2.0 (<2.0) mg/dL Ur Leukocyte Esterase Large H (Negative) Urine RBC 2 (0-5) /hpf Urine WBC 112 H (0-5) /hpf Ur Squamous Epith Cells <1 (0-4) /hpf Urine Bacteria Many H (None) /hpf Hyaline Casts 3 H (0-2) /lpf Urine Mucus Rare H (None) /hpf Influenza Type A (PCR) (Not Detectd) Influenza Type B (PCR) (Not Detectd) RSV (PCR) (Not Detectd) SARS-CoV-2 (PCR) (Not Detectd) 08/31/24 08/31/24 08/31/24 Range/Units 08:34 08:34 08:34 WBC (3.8-10.6) k/uL RBC (3.80-5.40) m/uL Hgb (11.4-16.0) gm/dL Hct (34.0-46.0) % MCV (80.0-100.0) fL MCH (25.0-35.0) pg MCHC (31.0-37.0) g/dL RDW (11.5-15.5) % Plt Count (150-450) k/uL MPV Neutrophils % % Lymphocytes % % Monocytes % % Eosinophils % % Basophils % % Neutrophils # (1.3-7.7) k/uL Lymphocytes # (1.0-4.8) k/uL Monocytes # (0-1.0) k/uL Eosinophils # (0-0.7) k/uL Basophils # (0-0.2) k/uL Anisocytosis Macrocytosis PT (10.0-12.5) sec INR (<1.2) APTT (22.0-30.0) sec Sodium 133 L (137-145) mmol/L Potassium 1.9 L* (3.5-5.1) mmol/L Chloride 101 (98-107) mmol/L Carbon Dioxide 27 (22-30) mmol/L Anion Gap 5 mmol/L BUN 11 (7-17) mg/dL Creatinine 1.01 (0.52-1.04) mg/dL Est GFR (CKD-EPI)AfAm 64 (>60 ml/min/1.73 sqM) Est GFR (CKD-EPI)NonAf 56 (>60 ml/min/1.73 sqM) Glucose 146 H (74-99) mg/dL Lactic Ac Sepsis Rflx Plasma Lactic Acid [place] 2.8 H* (0.7-2.0) mmol/L Calcium 7.0 L (8.4-10.2) mg/dL Magnesium 1.1 L (1.6-2.3) mg/dL Total Bilirubin 1.3 (0.2-1.3) mg/dL AST 26 (14-36) U/L ALT 14 (4-34) U/L Alkaline Phosphatase 163 H (38-126) U/L Total Protein 4.5 L (6.3-8.2) g/dL Albumin 2.1 L (3.5-5.0) g/dL Urine Color Urine Appearance (Clear) Urine pH (5.0-8.0) Ur Specific [place] (1.001-1.035) Urine Protein (Negative) Urine Glucose (UA) (Negative) Urine Ketones (Negative) Urine Blood (Negative) Urine Nitrite (Negative) Urine Bilirubin (Negative) Urine Urobilinogen (<2.0) mg/dL Ur Leukocyte Esterase (Negative) Urine RBC (0-5) /hpf Urine WBC (0-5) /hpf Ur Squamous Epith Cells (0-4) /hpf Urine Bacteria (None) /hpf Hyaline Casts (0-2) /lpf Urine Mucus (None) /hpf Influenza Type A (PCR) Not Detected (Not Detectd) Influenza Type B (PCR) Not Detected (Not Detectd) RSV (PCR) Not Detected (Not Detectd) SARS-CoV-2 (PCR) Not Detected (Not Detectd) 08/31/24 Range/Units 09:20 WBC (3.8-10.6) k/uL RBC (3.80-5.40) m/uL Hgb (11.4-16.0) gm/dL Hct (34.0-46.0) % MCV (80.0-100.0) fL MCH (25.0-35.0) pg MCHC (31.0-37.0) g/dL RDW (11.5-15.5) % Plt Count (150-450) k/uL MPV Neutrophils % % Lymphocytes % % Monocytes % % Eosinophils % % Basophils % % Neutrophils # (1.3-7.7) k/uL Lymphocytes # (1.0-4.8) k/uL Monocytes # (0-1.0) k/uL Eosinophils # (0-0.7) k/uL Basophils # (0-0.2) k/uL Anisocytosis Macrocytosis PT (10.0-12.5) sec INR (<1.2) APTT (22.0-30.0) sec Sodium (137-145) mmol/L Potassium (3.5-5.1) mmol/L Chloride (98-107) mmol/L Carbon Dioxide (22-30) mmol/L Anion Gap mmol/L BUN (7-17) mg/dL Creatinine (0.52-1.04) mg/dL Est GFR (CKD-EPI)AfAm (>60 ml/min/1.73 sqM) Est GFR (CKD-EPI)NonAf (>60 ml/min/1.73 sqM) Glucose (74-99) mg/dL Lactic Ac Sepsis Rflx Y Plasma Lactic Acid [place] (0.7-2.0) mmol/L Calcium (8.4-10.2) mg/dL Magnesium (1.6-2.3) mg/dL Total Bilirubin (0.2-1.3) mg/dL AST (14-36) U/L ALT (4-34) U/L Alkaline Phosphatase (38-126) U/L Total Protein (6.3-8.2) g/dL Albumin (3.5-5.0) g/dL Urine Color Urine Appearance (Clear) Urine pH (5.0-8.0) Ur Specific [place] (1.001-1.035) Urine Protein (Negative) Urine Glucose (UA) (Negative) Urine Ketones (Negative) Urine Blood (Negative) Urine Nitrite (Negative) Urine Bilirubin (Negative) Urine Urobilinogen (<2.0) mg/dL Ur Leukocyte Esterase (Negative) Urine RBC (0-5) /hpf Urine WBC (0-5) /hpf Ur Squamous Epith Cells (0-4) /hpf Urine Bacteria (None) /hpf Hyaline Casts (0-2) /lpf Urine Mucus (None) /hpf Influenza Type A (PCR) (Not Detectd) Influenza Type B (PCR) (Not Detectd) RSV (PCR) (Not Detectd) SARS-CoV-2 (PCR) (Not Detectd) - EKG Data -: EKG Interpreted by Me EKG Comments: 12-lead Electrocardiogram Interpretation Note EKG was reviewed and interpreted by myself. 12-lead ECG performed at 0748 is interpreted by me as revealing normal sinus rhythm with right bundle branch block at a rate of 77 beats per minute. Left axis deviation. NH interval is 140 ms, QRS duration is 187 ms, QTc is 531 ms.. There were no ST or T wave abnormalities to suggest myocardial ischemia or injury. R wave progression across the precordium was satisfactory. By my interpretation this EKG is non- diagnostic for acute ischemia. Compared with EKG from August 14, 2024 with no obvious significant acute change. Disposition Clinical Impression: Dehydration, Hypokalemia, Hypomagnesemia, UTI (urinary tract infection) Disposition: ADMITTED IP TO THIS HOSP Condition: Stable Time of Disposition: 09:55
[2024-08-31] MEDS: PANTOPRAZOLE 40 MG/10 ML VIAL IVP STA (08:32)
[2024-08-31] MEDS: SODIUM CHLORIDE 0.9% 1,000 ML IV STA ×2 (08:32→09:36)
[2024-08-31] MEDS: ONDANSETRON 4 MG/2 ML VIAL IVP STA (08:32)
[2024-08-31] MEDS: MECLIZINE 12.5 MG TAB PO STA (08:32)
[2024-08-31 09:02] LABS: Anisocytosis Slight; Basophils % (A) 0 %; Eosinophils # (A) 0.1 k/uL (0-0.7); Eosinophils % (A) 2 %; HCT 35.5 % (34.0-46.0); HGB 11.4 gm/dL (11.4-16.0); Lymphocytes # (A) 0.7 k/uL (1.0-4.8); Lymphocytes % (A) 22 %; MCH 32.1 pg (25.0-35.0); MCHC 32.2 g/dL (31.0-37.0); MCV 99.5 fL (80.0-100.0); Macrocytosis Slight; Mean Platelet Volume 7.7; Monocytes % (A) 1 %; Neutrophils # (A) 2.2 k/uL (1.3-7.7); Neutrophils % (A) 73 %; RBC 3.57 m/uL (3.80-5.40); RDW 16.9 % (11.5-15.5); WBC 3.1 k/uL (3.8-10.6)
[2024-08-31 09:07] LABS: INR 1.2 (<1.2); Partial Thromboplastin Time 25.2 sec (22.0-30.0); Prothrombin Time 12.7 sec (10.0-12.5)
[2024-08-31 09:09] LABS: ALT 14 U/L (4-34); AST 26 U/L (14-36); African American GFR (CKD) 64 (>60 ml/min/1.73 sqM); Albumin 2.1 g/dL (3.5-5.0); Alkaline Phosphatase 163 U/L (38-126); Anion Gap 5 mmol/L; Blood Urea Nitrogen 11 mg/dL (7-17); Carbon Dioxide 27 mmol/L (22-30); Chloride 101 mmol/L (98-107); Glucose 146 mg/dL (74-99); Magnesium 1.1 mg/dL (1.6-2.3); Non-African American GFR(CKD) 56 (>60 ml/min/1.73 sqM); Sodium 133 mmol/L (137-145); Total Bilirubin 1.3 mg/dL (0.2-1.3); Total Protein 4.5 g/dL (6.3-8.2)
[2024-08-31 09:13] LABS: Platelet Count 138 k/uL (150-450)
[2024-08-31 09:20] LABS: Potassium 1.9 mmol/L (3.5-5.1)
[2024-08-31] MEDS ORDERED: Potassium Replacement Protocol 1 EACH MISC MISCELLANE PRN ×2 (09:25→09:47)
--- NOTE | 2024-08-31 09:31 | XR ---
EXAMINATION TYPE: XR chest 2V DATE OF EXAM: 08/31/2024 9:28 AM COMPARISON: Chest radiographs from 08/13/2024 CLINICAL INDICATION: Female, 74 years old with history of Weakness; [facility] TECHNIQUE: XR chest 2V Frontal and lateral views of the chest. FINDINGS: Lungs/Pleura: There is no evidence of pleural effusion, focal consolidation, or pneumothorax. Pulmonary vascularity: Unremarkable. Heart/mediastinum: Cardiomediastinal silhouette is unremarkable. Musculoskeletal: No acute osseous pathology. Midline sternotomy wires are noted. Right chest wall [id number] with tip in apparent position. IMPRESSION: Stable exam no evidence for acute process. [facility], , 08/31/2024 9:29 AM
[2024-08-31] MEDS: POTASSIUM CHLORIDE ER 20 MEQ TAB.ER PO SCH (09:35)
--- NOTE | 2024-08-31 09:35 | CT ---
EXAMINATION TYPE: CT brain wo con DATE OF EXAM: 08/31/2024 COMPARISON: 07/17/2024 CLINICAL INDICATION: Female, 74 years old with history of weakness, dizzy, history of brain cancer; P HH, weakness, dizzy, history of brain cancer TECHNIQUE: CT scan of the head is performed without contrast. CT DLP: 1063.[address] CTDI: mGy Automated exposure control for dose reduction was used. FINDINGS: There is no acute intracranial hemorrhage or midline shift identified. There is diffuse v entricular and sulcal prominence consistent with diffuse age-related cerebral atrophy. There is low- attenuation in the periventricular white matter consistent with chronic small vessel ischemic change. The globes are intact and the visualized sinuses are clear. IMPRESSION: No acute intracranial hemorrhage or midline shift. There is diffuse age-related cerebra l atrophy and chronic small vessel ischemic change noted. [facility], , 08/31/2024 9:32 AM
[2024-08-31] MEDS: ZINC OXIDE PASTE (Z-GUARD) 1 APPLIC TOPICAL PRN (09:36)
[2024-08-31] MEDS: MAGNESIUM SULFATE-D5W PMX 1 GM in DEXTROSE/WATER 1 100ML.BAG IVPB SCH ×2 (09:37→15:36)
[2024-08-31] MEDS ORDERED: ACETAMINOPHEN TAB 325 MG TAB PO PRN (10:04)
[2024-08-31] MEDS ORDERED: ONDANSETRON 4 MG/2 ML VIAL IVP PRN (10:04)
[2024-08-31] MEDS ORDERED: NALOXONE 0.4 MG/ML 1 ML VIAL IV PRN (10:04)
[2024-08-31 10:38] LABS: Appearance,Urine Cloudy (Clear); Bacteria,Urine Many /hpf; Bilirubin,Urine Negative (Negative); Blood,Urine Negative (Negative); Color,Urine Yellow; Glucose,Urine (UA) Negative (Negative); Hyaline Casts,Urine 3 /lpf (0-2); Ketones,Urine Negative (Negative); Leukocyte Esterase,Urine Large (Negative); Mucus,Urine Rare /hpf; Nitrite,Urine Positive (Negative); PH, Urine 5.5 (5.0-8.0); Protein,Urine Trace (Negative); RBC,Urine 2 /hpf (0-5); Squamous Epithelial Cell,Urine <1 /hpf (0-4); Urobilinogen,Urine <2.0 mg/dL (<2.0); WBC,Urine 112 /hpf (0-5)
[2024-08-31] MEDS: POTASSIUM CHLORIDE 10 MEQ in WATER FOR INJECTION 1 100ML.BAG IVPB SCH (11:18)
[2024-08-31] MEDS: HYDROmorphone 0.5 MG/0.5 ML SYRINGE IVP PRN (15:18)
[2024-08-31] MEDS ORDERED: DEXTROSE 50% SYRINGE 50 ML IVP PRN ×2 (15:19)
--- NOTE | 2024-08-31 15:21 | P.HPIM ---
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 In the ED she underwent extensive evaluation. BP 125/84, HR 85, T 98F, RR 16, 96% on RA. CBC, Coag panel, CMP significant for WBC 3.1, RBC 3.57, Plt 138, PT 12.7 INR 1.2, Na 133, K 1.9, glu 146, Ca 7, alk phos 163, alb 2.1. Mag 1.1. Lactic acid 2.8. UA + nitrite and LE. COVID, RSV, Flu neg. EKG sinus rhythm with RBBB, Q waves in V1 V2. CXR neg/ CT brain neg for acute pathology. Recent admission for meyers colitis requiring transfer to [facility], underwent C-scope which showed some polyps. She reports recovering fully from her colitis prior to undergoing chemotherapy. General: non toxic, no distress, appears at stated age Derm: warm, dry Head: atraumatic, normocephalic, symmetric Eyes: EOMI, no lid lag, anicteric sclera Mouth: no lip lesion, mucus membranes moist Cardiovascular: S1S2 reg, no murmur Lungs: CTA bilateral, no rhonchi, no rales , no accessory muscle use Abdominal: soft, nontender to palpation, no guarding, no appreciable organomegaly Ext: no gross muscle atrophy, no edema, no contractures Neuro: no focal neuro deficits Psych: Alert, oriented, appropriate affect Based on my assessment of this patient, this patient meets a high complexity level of care. Severe metabolic derangements due to intractable N/V and diarrhea: Check c. diff. Zofran 4 mg IV TID PRN. Hypokalemia: KCl 60 meq IV x 1. Hypomagnesemia: Mag sulfate 4g IV x 1. Hyponatremia: NS at 75 cc/hr. Lactic acidosis: Trend with IV hydration. Buttocks wound: Present on admission. Consult Wound care. HypoCa: Corrected is 8.5. 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 De Jesus. A-fib on Eliquis: Rate controlled. Not on AC due to previous GI bleed. Diabetes: ISS. Accuchecks ACHS. Hypoglycemic precautions. COPD not in acute exacerbation CODE STATUS: NO CODE DVT Prophylaxis: Heparin SQ GI Prophylaxis: Protonix IV Designated medical POA if patient is not able to make medical decisions for themselves: I have reviewed the following data processing consultant notes: ED note. I have reviewed the results of the following tests: As above. I have ordered the following tests: As above. I have discussed the care of this patient with the following independent historian: Family at bedside. I have independently interpreted the following test below: EKG. I have discussed the management of this patient with the following physician: ED provider. 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 murmur. hx breast cancer- radiation complete 04/2023. current spot on lung NO LEFT ARM use. 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 Pt has claustrophobia. Past Psychological History: Anxiety, Panic Disorder Smoking Status: Current every day smoker Past Alcohol Use History: None Reported Past Drug Use History: None Reported - Past Family History Mother Family Medical History: Diabetes Mellitus, Hyperlipidemia, Hypertension Sister(s) Family Medical History: Cancer Additional Family Medical History / Comment(s): Cervical cancer. She is . Medications and Allergies Home Medications Medication Instructions Recorded Confirmed Type Anastrozole 1 mg PO DAILY@1100 11/20/23 08/31/24 History Escitalopram [Lexapro] 20 mg PO HS@1800 12/23/23 08/31/24 History Esomeprazole Magnesium [NexIUM] 40 mg PO DAILY@1100 12/23/23 08/31/24 History Insulin Degludec [Tresiba 5 - 20 units SQ HS PRN 05/05/24 08/31/24 History Flextouch U-100 Pen] Prochlorperazine [Compazine] 10 mg PO Q6H PRN #30 tab 05/06/24 08/31/24 Rx ALPRAZolam [Xanax] 0.125 - 0.25 mg PO BID PRN 07/30/24 08/31/24 History Furosemide [Lasix] 20 mg PO DAILY@1100 07/30/24 08/31/24 History HYDROcodone/APAP 5-325MG [[place] 1 tab PO Q6H PRN 08/31/24 08/31/24 History 5-325] Loperamide [Imodium] 2 - 4 mg PO QID PRN 08/31/24 08/31/24 History Allergies Allergy/AdvReac Type Severity Reaction Status Date / Time dog dander Allergy Runny nose Verified 08/31/24 10:00 horse dander Allergy Runny nose Verified 08/31/24 10:00 mold Allergy Runny nose Verified 08/31/24 10:00 codeine AdvReac Chest Pain Verified 08/31/24 10:00 empagliflozin AdvReac severe UTI Verified 08/31/24 10:00 [From Jardiance] gabapentin AdvReac Confusion Verified 08/31/24 10:00 metformin AdvReac Diarrhea Verified 08/31/24 10:00 pioglitazone [From Actos] AdvReac denies Verified 08/31/24 10:00 allergy semaglutide [From Ozempic] AdvReac denies Verified 08/31/24 10:00 allergy sitagliptin [From Januvia] AdvReac severe UTI Verified 08/31/24 10:00 dogs,horses,mold Allergy Runny nose Uncoded 08/31/24 10:00 Physical Exam Vitals: Vital Signs Temp Pulse Resp BP Pulse Ox 08/31/24 12:41 67 18 131/80 99 08/31/24 11:23 67 18 127/65 97 08/31/24 07:40 98.0 F 85 16 125/84 96 Intake and Output 08/31/24 08/31/24 08/31/24 06:59 14:59 22:59 Other: Weight 73.482 kg Results CBC & Chem 7: 08/31/24 08:34 08/31/24 08:34 Labs: Abnormal Lab Results - Last 24 Hours (Table) 08/31/24 08/31/24 08/31/24 Range/Units 08:34 08:34 08:34 WBC 3.1 L (3.8-10.6) k/uL RBC 3.57 L (3.80-5.40) m/uL RDW 16.9 H (11.5-15.5) % Plt Count 138 L D (150-450) k/uL Lymphocytes # 0.7 L (1.0-4.8) k/uL PT 12.7 H (10.0-12.5) sec INR 1.2 H (<1.2) Sodium (137-145) mmol/L Potassium (3.5-5.1) mmol/L Glucose (74-99) mg/dL Plasma Lactic Acid Benjamín (0.7-2.0) mmol/L Calcium (8.4-10.2) mg/dL Magnesium (1.6-2.3) mg/dL Alkaline Phosphatase (38-126) U/L Total Protein (6.3-8.2) g/dL Albumin (3.5-5.0) g/dL Urine Appearance Cloudy H (Clear) Urine Protein Trace H (Negative) Urine Nitrite Positive H (Negative) Ur Leukocyte Esterase Large H (Negative) Urine WBC 112 H (0-5) /hpf Urine Bacteria Many H (None) /hpf Hyaline Casts 3 H (0-2) /lpf Urine Mucus Rare H (None) /hpf 08/31/24 08/31/24 Range/Units 08:34 08:34 WBC (3.8-10.6) k/uL RBC (3.80-5.40) m/uL RDW (11.5-15.5) % Plt Count (150-450) k/uL Lymphocytes # (1.0-4.8) k/uL PT (10.0-12.5) sec INR (<1.2) Sodium 133 L (137-145) mmol/L Potassium 1.9 L* (3.5-5.1) mmol/L Glucose 146 H (74-99) mg/dL Plasma Lactic Acid Benjamín 2.8 H* (0.7-2.0) mmol/L Calcium 7.0 L (8.4-10.2) mg/dL Magnesium 1.1 L (1.6-2.3) mg/dL Alkaline Phosphatase 163 H (38-126) U/L Total Protein 4.5 L (6.3-8.2) g/dL Albumin 2.1 L (3.5-5.0) g/dL Urine Appearance (Clear) Urine Protein (Negative) Urine Nitrite (Negative) Ur Leukocyte Esterase (Negative) Urine WBC (0-5) /hpf Urine Bacteria (None) /hpf Hyaline Casts (0-2) /lpf Urine Mucus (None) /hpf
[2024-08-31 17:16] LABS: Glucose,Whole Blood 160 mg/dL (70-110)
[2024-08-31] MEDS: INSULIN ASPART (NovoLOG) 100 UNIT/ML VIAL SQ SCH (17:53)
[2024-08-31] MEDS: ESCITALOPRAM 20 MG TAB PO SCH (19:51)
[2024-08-31 20:20] LABS: Glucose,Whole Blood 147 mg/dL (70-110)
[2024-08-31] MEDS: HEPARIN SODIUM,PORCINE 5,000 UNIT/ML 1 ML VIAL SQ SCH (21:17)
[2024-09-01] MEDS: POTASSIUM CHLORIDE ER 20 MEQ TAB.ER PO STA ×2 (02:42→11:36)
[2024-09-01] MEDS: POTASSIUM CHLORIDE 10 MEQ in WATER FOR INJECTION 1 100ML.BAG IVPB SCH ×2 (03:01→11:37)
[2024-09-01 07:01] LABS: Glucose,Whole Blood 109 mg/dL (70-110)
[2024-09-01] MEDS: PANTOPRAZOLE 40 MG/10 ML VIAL IVP SCH (08:41)
[2024-09-01] MEDS ORDERED: LOPERAMIDE 2 MG CAP PO PRN (08:49)
[2024-09-01] MEDS ORDERED: DIPHENOX-ATROP 2.5-0.025 MG 1 EACH TAB PO PRN (08:49)
[2024-09-01 09:13] LABS: Magnesium 1.8 mg/dL (1.5-2.4)
[2024-09-01 09:49] LABS: ALT 13 U/L (8-44); AST 27 U/L (13-35); Albumin 2.1 g/dL (3.8-4.9); Albumin/Globulin Ratio 1.24 Ratio (1.60-3.17); Alkaline Phosphatase 162 U/L (41-126); Blood Urea Nitrogen 9.4 mg/dL (9.0-27.0); Calcium 6.9 mg/dL (8.7-10.3); Carbon Dioxide 26.1 mmol/L (21.6-31.8); Chloride 105 mmol/L (96-109); Globulin 1.7 g/dL (1.6-3.3); Glucose 112 mg/dL (70-110); Potassium 2.6 mmol/L (3.5-5.5); Sodium 139 mmol/L (135-145); Total Bilirubin 0.5 mg/dL (0.3-1.2); Total Protein 3.8 g/dL (6.2-8.2)
--- NOTE | 2024-09-01 11:09 | P.CONS ---
History of Present Illness - Reason for Consult Consult date: 09/01/24 wound care - History of Present Illness This is a 74-year-old patient being seen by the wound care center on [address] for stage II pressure ulcer to the right and left buttocks. Patient has open ulcerations with minimal granulation slough and nonviable tissue present. Wound edges are rolled. No tunneling or undermining noted. Patient also has excoriation and maceration noted to the periwound. Due to the frequent stools we will utilize Triad instead of honey at this time. PMH of diabetes Review Of Systems: Constitutional: No fever, no chills, no night sweats. No weight change. No weakness, fatigue or lethargy. No daytime sleepiness. Integumentary:reports wounds, no lesions. No rash or pruritus. No unusual bruising. No change in hair or nails. Physical exam: General Appearance: Alert, cooperative, no distress, appears stated age. Skin: See HPI all other Skin color, texture, tugor normal, no rashes or lesions. Neurologic: Alert oriented x3 Assessment: 1. Stage II pressure ulcer right buttocks 2. Stage II pressure ulcer left buttocks 3. Diabetes with skin ulceration Plan: 1. Turn patient every 2 hours. Utilize a air-filled cushion while sitting. Review surface algorithm for appropriate surface for offloading. Utilize Triad daily and as needed. Thank you for the consultation any questions please contact the wound care center DNP note has been reviewed and discussed with Dr. Frost and the impression and plan of care has been directed as dictated. 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 murmur. hx breast cancer- radiation complete 04/2023. current spot on lung NO LEFT ARM use. 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 Pt has claustrophobia. Past Psychological History: Anxiety, Panic Disorder Smoking Status: Current every day smoker Past Alcohol Use History: None Reported Past Drug Use History: None Reported - Past Family History Mother Family Medical History: Diabetes Mellitus, Hyperlipidemia, Hypertension Sister(s) Family Medical History: Cancer Additional Family Medical History / Comment(s): Cervical cancer. She is . Medications and Allergies Home Medications Medication Instructions Recorded Confirmed Type Anastrozole 1 mg PO DAILY@1100 11/20/23 08/31/24 History Escitalopram [Lexapro] 20 mg PO HS@1800 12/23/23 08/31/24 History Esomeprazole Magnesium [NexIUM] 40 mg PO DAILY@1100 12/23/23 08/31/24 History Insulin Degludec [Tresiba 5 - 20 units SQ HS PRN 05/05/24 08/31/24 History Flextouch U-100 Pen] Prochlorperazine [Compazine] 10 mg PO Q6H PRN #30 tab 05/06/24 08/31/24 Rx ALPRAZolam [Xanax] 0.125 - 0.25 mg PO BID PRN 07/30/24 08/31/24 History Furosemide [Lasix] 20 mg PO DAILY@1100 07/30/24 08/31/24 History HYDROcodone/APAP 5-325MG [[place] 1 tab PO Q6H PRN 08/31/24 08/31/24 History 5-325] Loperamide [Imodium] 2 - 4 mg PO QID PRN 08/31/24 08/31/24 History Allergies Allergy/AdvReac Type Severity Reaction Status Date / Time dog dander Allergy Runny nose Verified 08/31/24 10:00 horse dander Allergy Runny nose Verified 08/31/24 10:00 mold Allergy Runny nose Verified 08/31/24 10:00 codeine AdvReac Chest Pain Verified 08/31/24 10:00 empagliflozin AdvReac severe UTI Verified 08/31/24 10:00 [From Jardiance] gabapentin AdvReac Confusion Verified 08/31/24 10:00 metformin AdvReac Diarrhea Verified 08/31/24 10:00 pioglitazone [From Actos] AdvReac denies Verified 08/31/24 10:00 allergy semaglutide [From Ozempic] AdvReac denies Verified 08/31/24 10:00 allergy sitagliptin [From Januvia] AdvReac severe UTI Verified 08/31/24 10:00 dogs,horses,mold Allergy Runny nose Uncoded 08/31/24 10:00 Physical Exam Vitals: Vital Signs Temp Pulse Pulse Pulse Resp BP BP 09/01/24 10:23 98.1 F 69 69 16 95/59 09/01/24 09:49 09/01/24 07:01 97.9 F 66 16 112/65 09/01/24 01:50 98.2 F 69 12 96/60 08/31/24 20:00 98.0 F 71 12 110/65 08/31/24 16:05 62 17 111/54 08/31/24 15:15 68 16 117/55 08/31/24 12:41 67 18 131/80 08/31/24 11:23 67 18 127/65 Pulse Ox 09/01/24 10:23 09/01/24 09:49 98 09/01/24 07:01 93 L 09/01/24 01:50 94 L 08/31/24 20:00 93 L 08/31/24 16:05 99 08/31/24 15:15 100 08/31/24 12:41 99 08/31/24 11:23 97 Intake and Output 08/31/24 09/01/24 09/01/24 22:59 06:59 14:59 Intake Total 240 965 358 Balance 240 965 358 Intake: Intake, IV Titration 725 Amount Potassium Chloride 10 meq 500 In Water For Injection 1 100ml.bag @ 100 mls/hr IVPB Q1HR SAHRA Rx#: [id number] Sodium Chloride 0.9% 1, 225 000 ml @ 75 mls/hr IV . [id number] STA Rx#:[id number] Oral 240 240 358 Other: Voiding Method External Catheter # Voids 2 # Bowel Movements 2 Weight 73.482 kg Results CBC & Chem 7: 08/31/24 08:34 09/01/24 04:41 Labs: Abnormal Lab Results - Last 24 Hours (Table) 08/31/24 08/31/24 09/01/24 Range/Units 17:14 20:19 01:18 Potassium 2.1 L* (3.5-5.1) mmol/L BUN/Creatinine Ratio (12.00-20.00) Ratio Glucose (70-110) mg/dL POC Glucose (mg/dL) 160 H 147 H (70-110) mg/dL Calcium (8.7-10.3) mg/dL Alkaline Phosphatase (41-126) U/L Total Protein (6.2-8.2) g/dL Albumin (3.8-4.9) g/dL Albumin/Globulin Ratio (1.60-3.17) Ratio 09/01/24 Range/Units 04:41 Potassium 2.6 A* (3.5-5.1) mmol/L BUN/Creatinine Ratio 9.40 L (12.00-20.00) Ratio Glucose 112 H (70-110) mg/dL POC Glucose (mg/dL) (70-110) mg/dL Calcium 6.9 L (8.7-10.3) mg/dL Alkaline Phosphatase 162 H (41-126) U/L Total Protein 3.8 L (6.2-8.2) g/dL Albumin 2.1 L (3.8-4.9) g/dL Albumin/Globulin Ratio 1.24 L (1.60-3.17) Ratio
--- NOTE | 2024-09-01 11:41 | P.PN ---
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 In the ED she underwent extensive evaluation. BP 125/84, HR 85, T 98F, RR 16, 96% on RA. CBC, Coag panel, CMP significant for WBC 3.1, RBC 3.57, Plt 138, PT 12.7 INR 1.2, Na 133, K 1.9, glu 146, Ca 7, alk phos 163, alb 2.1. Mag 1.1. Lactic acid 2.8. UA + nitrite and LE. COVID, RSV, Flu neg. EKG sinus rhythm with RBBB, Q waves in V1 V2. CXR neg/ CT brain neg for acute pathology. Recent admission for meyers colitis requiring transfer to [facility], underwent C-scope which showed some polyps. She reports recovering fully from her colitis prior to undergoing chemotherapy. 09/01 Patient was seen and examined. Multiple episodes of diarrhea overnight, watery. K 2.1 last night. CMP significant for K 2.6, glu 112, Ca 6.9, alk phos 162, total protein 3.8, alb 2.1. C. diff negative General: non toxic, no distress, appears at stated age Derm: warm, dry Head: atraumatic, normocephalic, symmetric Eyes: EOMI, no lid lag, anicteric sclera Mouth: no lip lesion, mucus membranes moist Cardiovascular: S1S2 reg, no murmur Lungs: CTA bilateral, no rhonchi, no rales , no accessory muscle use Abdominal: soft, nontender to palpation, no guarding, no appreciable organomegaly Ext: no gross muscle atrophy, no edema, no contractures Neuro: no focal neuro deficits Psych: Alert, oriented, appropriate affect Based on my assessment of this patient, this patient meets a high complexity level of care. Severe metabolic derangements due to intractable N/V and diarrhea: C. diff negative. Zofran 4 mg IV TID PRN. Discussed with Dr. Lyon, check stool Cx, hold Imodium/Lomotil for now, NPO except ice chips, consider CT AP if clinically worsens. Hypokalemia: KCl 40 meq PO x 1 + 40 meq IV x 1. UTI: Rocephin 1g IV QD. Follow UCx. Buttocks wound: Present on admission. Consult Wound care. HypoCa: Corrected is 8.5. 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 De Jesus. A-fib on Eliquis: Rate controlled. Not on AC due to previous GI bleed. Diabetes: ISS. Accuchecks ACHS. Hypoglycemic precautions. COPD not in acute exacerbation Resolved: Lactic acidosis. HypoMag. HypoNa CODE STATUS: NO CODE DVT Prophylaxis: Heparin SQ GI Prophylaxis: Protonix IV Designated medical POA if patient is not able to make medical decisions for themselves: I have reviewed the following independent beauty consultant notes: I have reviewed the results of the following tests: CMP, Mag. C. diff. I have ordered the following tests: BMP in the AM. I have discussed the care of this patient with the following independent historian: RN. Family at bedside. I have independently interpreted the following test below: I have discussed the management of this patient with the following physician: Dr. Lyno and Mandy PROBATION MANAGER Objective - Vital Signs Vital signs: Vital Signs Temp 97.9 F 09/01/24 07:01 Pulse 66 09/01/24 07:01 Resp 16 09/01/24 07:01 BP 112/65 09/01/24 07:01 Pulse Ox 93 L 09/01/24 07:01 FiO2 Intake & Output 08/31/24 09/01/24 09/01/24 18:59 06:59 18:59 Intake Total 240 965 Balance 240 965 Weight 73.482 kg Intake: Intake, IV Titration 725 Amount Potassium Chloride 10 meq 500 In Water For Injection 1 100ml.bag @ 100 mls/hr IVPB Q1HR [facility]RA Rx#: [id number] Sodium Chloride 0.9% 1, 225 000 ml @ 75 mls/hr IV . [id number] STA Rx#:[id number] Oral 240 240 Other: Voiding Method External Catheter # Voids 2 # Bowel Movements 2 - Labs CBC & Chem 7: 08/31/24 08:34 09/01/24 04:41 Labs: Abnormal Lab Results - Last 24 Hours (Table) 11/18/24 11/18/24 11/18/24 Range/Units 08:34 08:34 08:34 WBC 3.1 L (3.8-10.6) k/uL RBC 3.57 L (3.80-5.40) m/uL RDW 16.9 H (11.5-15.5) % Plt Count 138 L D (150-450) k/uL Lymphocytes # 0.7 L (1.0-4.8) k/uL PT 12.7 H (10.0-12.5) sec INR 1.2 H (<1.2) Sodium (137-145) mmol/L Potassium (3.5-5.1) mmol/L Glucose (74-99) mg/dL POC Glucose (mg/dL) (70-110) mg/dL Plasma Lactic Acid Benjamín (0.7-2.0) mmol/L Calcium (8.4-10.2) mg/dL Magnesium (1.6-2.3) mg/dL Alkaline Phosphatase (38-126) U/L Total Protein (6.3-8.2) g/dL Albumin (3.5-5.0) g/dL Urine Appearance Cloudy H (Clear) Urine Protein Trace H (Negative) Urine Nitrite Positive H (Negative) Ur Leukocyte Esterase Large H (Negative) Urine WBC 112 H (0-5) /hpf Urine Bacteria Many H (None) /hpf Hyaline Casts 3 H (0-2) /lpf Urine Mucus Rare H (None) /hpf 08/31/24 08/31/24 08/31/24 Range/Units 08:34 08:34 17:14 WBC (3.8-10.6) k/uL RBC (3.80-5.40) m/uL RDW (11.5-15.5) % Plt Count (150-450) k/uL Lymphocytes # (1.0-4.8) k/uL PT (10.0-12.5) sec INR (<1.2) Sodium 133 L (137-145) mmol/L Potassium 1.9 L* (3.5-5.1) mmol/L Glucose 146 H (74-99) mg/dL POC Glucose (mg/dL) 160 H (70-110) mg/dL Plasma Lactic Acid Benjamín 2.8 H* (0.7-2.0) mmol/L Calcium 7.0 L (8.4-10.2) mg/dL Magnesium 1.1 L (1.6-2.3) mg/dL Alkaline Phosphatase 163 H (38-126) U/L Total Protein 4.5 L (6.3-8.2) g/dL Albumin 2.1 L (3.5-5.0) g/dL Urine Appearance (Clear) Urine Protein (Negative) Urine Nitrite (Negative) Ur Leukocyte Esterase (Negative) Urine WBC (0-5) /hpf Urine Bacteria (None) /hpf Hyaline Casts (0-2) /lpf Urine Mucus (None) /hpf 08/31/24 09/01/24 Range/Units 20:19 01:18 WBC (3.8-10.6) k/uL RBC (3.80-5.40) m/uL RDW (11.5-15.5) % Plt Count (150-450) k/uL Lymphocytes # (1.0-4.8) k/uL PT (10.0-12.5) sec INR (<1.2) Sodium (137-145) mmol/L Potassium 2.1 L* (3.5-5.1) mmol/L Glucose (74-99) mg/dL POC Glucose (mg/dL) 147 H (70-110) mg/dL Plasma Lactic Acid Benjamín (0.7-2.0) mmol/L Calcium (8.4-10.2) mg/dL Magnesium (1.6-2.3) mg/dL Alkaline Phosphatase (38-126) U/L Total Protein (6.3-8.2) g/dL Albumin (3.5-5.0) g/dL Urine Appearance (Clear) Urine Protein (Negative) Urine Nitrite (Negative) Ur Leukocyte Esterase (Negative) Urine WBC (0-5) /hpf Urine Bacteria (None) /hpf Hyaline Casts (0-2) /lpf Urine Mucus (None) /hpf
[2024-09-01] MEDS: ANASTROZOLE 1 MG TAB PO SCH (12:07)
[2024-09-01 12:40] LABS: Glucose,Whole Blood 137 mg/dL (70-110)
[2024-09-01 12:51] LABS: Acanthocytes 2+; Anisocytosis (M) 2+; Basophils # (M) 0 X 10*3/uL (0.00-0.10); Elliptocytes 2+; Eosinophils # (M) 0.03 X 10*3/uL (0.04-0.35); HCT 24.9 % (37.2-46.3); HGB 7.9 g/dL (12.0-15.0); Lymphocytes # (M) 0.35 X 10*3/uL (0.90-5.00); MCH 32.9 pg (27.0-32.0); MCHC 31.7 g/dL (32.0-37.0); MCV 103.8 FL (80.0-97.0); Macrocytosis (M) 2+; Mean Platelet Volume 10.2 FL (9.5-12.2); Monocytes # (M) 0 X 10*3/uL (0.20-1.00); NRBC Per 100 WBC 0 X 10*3/uL (0.00-0.01); Neutrophils # (M) 2.51 X 10*3/uL (1.80-7.70); Neutrophils % (M) 87 %; Platelet Count 84 X 10*3/uL (140-440); RDW 18.1 % (11.5-14.5); WBC 2.89 X 10*3/uL (4.50-10.00)
[2024-09-01 13:16] VITALS: BMI 26.9
--- NOTE | 2024-09-01 13:21 | US ---
EXAMINATION TYPE: US venous doppler duplex LE BI DATE OF EXAM: 09/01/2024 12:20 PM Exam done portable COMPARISON: US 2023 CLINICAL INDICATION: Female, 74 years old with history of swelling; , TECHNIQUE: The lower extremity deep venous system is examined utilizing real time linear array sonog deuce with graded compression, color doppler sonography, and spectral doppler. SIDE PERFORMED: Bilateral FINDINGS: VESSELS IMAGED: Common Femoral Vein Deep Femoral Vein Greater Saphenous Vein * Femoral Vein Popliteal Vein Small Saphenous Vein * Proximal Calf Veins (* superficial vessels) Right Leg: Appears negative for DVT Left Leg: Appears negative for DVT IMPRESSION: No ultrasound evidence for deep venous thrombosis. [facility], , 09/01/2024 1:18 PM
[2024-09-01] MEDS ORDERED: HYDROPHILIC CREAM 180 GM TUBE TOPICAL PRN (13:28)
[2024-09-01] MEDS: HYDROPHILIC CREAM 180 GM TUBE TOPICAL SCH (14:13)
[2024-09-01 17:04] LABS: Glucose,Whole Blood 128 mg/dL (70-110)
--- NOTE | 2024-09-01 19:21 | P.CONS ---
History of Present Illness - Reason for Consult Consult date: 09/01/24 SCLC, on treatment Requesting physician: Rancho Schmidt - Chief Complaint intractable diarrhea, dehydration - History of Present Illness This is from consult dated 08/15 when pt was admitted with hypotension, AMADOR, hypokalemia with diarrhea. She had a bloody BM and was transferred to [facility]. She received 1 unit PRBCs and 1 unit SDP. Ms. Moeller is a 74-year-old woman with a past medical history significant for extensive stage small cell lung cancer who received 6 cycles of carboplatin/etoposide/atezolizumab followed by 6 cycles of maintenance atezolizumab with disease progression with brain metastases in March 2024 status post 3 fractions of SRS in May 2024 with disease progression systemically in the lung and liver who has completed 2 cycles of lurbinectedin (cycle 2, day 1 on 08/06/2024). Pt was seen in office 08/20/24 after weekend at [facility]. On Sat PCP gave pt abx for UTI. She had a colonoscopy, told few polyps but no bleeding. No bleeding since coming home. She is s/p her 2nd cycle of zepzelca. Derm has seen pt, the sores on backside are being treated with medihoney. She had chemo last , diarrhea had not stopped prior to receiving. She cont to have progressive "slimy, watery stool", progressive weakness. Now admitted for dehydration, hypokalemia. Chemotherapy induced pancytopenia. She remains weak, denies blood in recent stools, abd is sensitive. She did vomit last evening, not taking in much orally. No fever, chills, SOB, chest pain, LLE swelling, no other acute c/o. She has a Hx of breast cancer pT1c N0, arimidex. A-flutter previously on eliquis, none after GI bleeding Family history, she had 1 sister with cervical cancer and a paternal aunt with non-Hodgkin's lymphoma. She had a maternal aunt with lung cancer as well as breast cysts, no evidence of malignancy in the breast. 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 murmur. hx breast cancer- radiation complete 04/2023. current spot on lung NO LEFT ARM use. 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 Pt has claustrophobia. Past Psychological History: Anxiety, Panic Disorder Smoking Status: Current every day smoker Past Alcohol Use History: None Reported Past Drug Use History: None Reported - Past Family History Mother Family Medical History: Diabetes Mellitus, Hyperlipidemia, Hypertension Sister(s) Family Medical History: Cancer Additional Family Medical History / Comment(s): Cervical cancer. She is . Medications and Allergies Home Medications Medication Instructions Recorded Confirmed Type Anastrozole 1 mg PO DAILY@1100 11/20/23 08/31/24 History Escitalopram [Lexapro] 20 mg PO HS@1800 12/23/23 08/31/24 History Esomeprazole Magnesium [NexIUM] 40 mg PO DAILY@1100 12/23/23 08/31/24 History Insulin Degludec [Tresiba 5 - 20 units SQ HS PRN 05/05/24 08/31/24 History Flextouch U-100 Pen] Prochlorperazine [Compazine] 10 mg PO Q6H PRN #30 tab 05/06/24 08/31/24 Rx ALPRAZolam [Xanax] 0.125 - 0.25 mg PO BID PRN 07/30/24 08/31/24 History Furosemide [Lasix] 20 mg PO DAILY@1100 07/30/24 08/31/24 History HYDROcodone/APAP 5-325MG [[place] 1 tab PO Q6H PRN 08/31/24 08/31/24 History 5-325] Loperamide [Imodium] 2 - 4 mg PO QID PRN 08/31/24 08/31/24 History Allergies Allergy/AdvReac Type Severity Reaction Status Date / Time dog dander Allergy Runny nose Verified 08/31/24 10:00 horse dander Allergy Runny nose Verified 08/31/24 10:00 mold Allergy Runny nose Verified 08/31/24 10:00 codeine AdvReac Chest Pain Verified 08/31/24 10:00 empagliflozin AdvReac severe UTI Verified 08/31/24 10:00 [From Jardiance] gabapentin AdvReac Confusion Verified 08/31/24 10:00 metformin AdvReac Diarrhea Verified 08/31/24 10:00 pioglitazone [From Actos] AdvReac denies Verified 08/31/24 10:00 allergy semaglutide [From Ozempic] AdvReac denies Verified 08/31/24 10:00 allergy sitagliptin [From Januvia] AdvReac severe UTI Verified 08/31/24 10:00 dogs,horses,mold Allergy Runny nose Uncoded 08/31/24 10:00 Physical Exam Vitals: Vital Signs Temp Pulse Pulse Pulse Resp BP BP 09/01/24 10:23 98.1 F 69 69 16 95/59 09/01/24 09:49 09/01/24 07:01 97.9 F 66 16 112/65 09/01/24 01:50 98.2 F 69 12 96/60 08/31/24 20:00 98.0 F 71 12 110/65 08/31/24 16:05 62 17 111/54 08/31/24 15:15 68 16 117/55 08/31/24 12:41 67 18 131/80 08/31/24 11:23 67 18 127/65 Pulse Ox 09/01/24 10:23 09/01/24 09:49 98 09/01/24 07:01 93 L 09/01/24 01:50 94 L 08/31/24 20:00 93 L 08/31/24 16:05 99 08/31/24 15:15 100 08/31/24 12:41 99 08/31/24 11:23 97 Intake and Output 08/31/24 09/01/24 09/01/24 22:59 06:59 14:59 Intake Total 240 965 358 Balance 240 965 358 Intake: Intake, IV Titration 725 Amount Potassium Chloride 10 meq 500 In Water For Injection 1 100ml.bag @ 100 mls/hr IVPB Q1HR [facility] Rx#: [id number] Sodium Chloride 0.9% 1, 225 000 ml @ 75 mls/hr IV . [id number] ST[facility] Rx#:[id number] Oral 240 240 358 Other: Voiding Method External Catheter # Voids 2 # Bowel Movements 2 Weight 73.482 kg - Constitutional General appearance: average body habitus, cooperative, no acute distress - EENT Eyes: anicteric sclerae, EOMI ENT: hearing grossly normal, normal oropharynx - Neck Neck: no lymphadenopathy - Respiratory Respiratory: bilateral: diminished - Cardiovascular Rhythm: regular Heart sounds: normal: S1, S2 Abnormal Heart Sounds: no systolic murmur, no diastolic murmur, no rub, no S3 Gallop, no S4 Gallop, no click, no other leg Peripheral Edema: right: Trace, left: 2+ - Gastrointestinal General gastrointestinal: no absent bowel sounds, no decreased bowel sounds, no distended, no hepatomegaly, no hyperactive bowel sounds, normal bowel sounds, no organomegaly, no rigid, no scaphoid, soft, no splenomegaly, tenderness, no umbilical hernia, no ventral hernia - Integumentary Integumentary: pale - Neurologic Neurologic: CNII-XII intact - Musculoskeletal Musculoskeletal: generalized weakness - Psychiatric Psychiatric: A&O x's 3, appropriate affect, intact judgment & insight Results CBC & Chem 7: 09/01/24 04:41 09/01/24 17:41 Labs: Abnormal Lab Results - Last 24 Hours (Table) 08/31/24 08/31/24 08/31/24 Range/Units 08:34 17:14 20:19 Potassium (3.5-5.1) mmol/L BUN/Creatinine Ratio (12.00-20.00) Ratio Glucose (70-110) mg/dL POC Glucose (mg/dL) 160 H 147 H (70-110) mg/dL Calcium (8.7-10.3) mg/dL Alkaline Phosphatase (41-126) U/L Total Protein (6.2-8.2) g/dL Albumin (3.8-4.9) g/dL Albumin/Globulin Ratio (1.60-3.17) Ratio Urine Appearance Cloudy H (Clear) Urine Protein Trace H (Negative) Urine Nitrite Positive H (Negative) Ur Leukocyte Esterase Large H (Negative) Urine WBC 112 H (0-5) /hpf Urine Bacteria Many H (None) /hpf Hyaline Casts 3 H (0-2) /lpf Urine Mucus Rare H (None) /hpf 09/01/24 09/01/24 Range/Units 01:18 04:41 Potassium 2.1 L* 2.6 A* (3.5-5.1) mmol/L BUN/Creatinine Ratio 9.40 L (12.00-20.00) Ratio Glucose 112 H (70-110) mg/dL POC Glucose (mg/dL) (70-110) mg/dL Calcium 6.9 L (8.7-10.3) mg/dL Alkaline Phosphatase 162 H (41-126) U/L Total Protein 3.8 L (6.2-8.2) g/dL Albumin 2.1 L (3.8-4.9) g/dL Albumin/Globulin Ratio 1.24 L (1.60-3.17) Ratio Urine Appearance (Clear) Urine Protein (Negative) Urine Nitrite (Negative) Ur Leukocyte Esterase (Negative) Urine WBC (0-5) /hpf Urine Bacteria (None) /hpf Hyaline Casts (0-2) /lpf Urine Mucus (None) /hpf Chest x-ray: report reviewed CT Scan - head: report reviewed Assessment and Plan (1) Diarrhea Current Visit: Yes Status: Acute Priority: High Code(s): R19.7 - DIARRHEA, UNSPECIFIED SNOMED Code(s): 00737303 (2) Dehydration Current Visit: Yes Status: Acute Priority: High Code(s): E86.0 - DEHYDRATION SNOMED Code(s): 74469787 (3) Hypokalemia Current Visit: Yes Status: Acute Code(s): E87.6 - HYPOKALEMIA SNOMED Code(s): 82085187 (4) Pancytopenia due to antineoplastic chemotherapy Current Visit: No Status: Acute Code(s): D61.810 - ANTINEOPLASTIC CHEMOTHERAPY INDUCED PANCYTOPENIA; T45.1X5A - ADVERSE EFFECT OF ANTINEOPLASTIC AND IMMUNOSUP DRUGS, INIT SNOMED Code(s): 738262378659034 (5) Weakness Current Visit: No Status: Acute Priority: High Code(s): R53.1 - WEAKNESS SNOMED Code(s): 33517608 (6) Extensive stage primary small cell carcinoma of lung Current Visit: No Status: Chronic Priority: Medium Code(s): C34.90 - MALIGNANT NEOPLASM OF UNSP PART OF UNSP BRONCHUS OR LUNG SNOMED Code(s): 771336908849509 Plan: Diarrhea -C. difficile negative -Stool culture ordered -Case discussed with attending, antidiarrheal medications will be ordered -N.p.o. other than sips of water/ice chips with medications for bowel rest Dehydration, hypokalemia -Secondary to diarrhea -Patient is on electrolyte replacement and fluids Pancytopenia secondary to antineoplastic chemotherapy -Likely drops in counts secondary to hemoconcentration from dehydration. Will cont to monitor labs closely -Labs daily -Transfuse for hemoglobin less than 7 or platelets less than 10,000 or if symptomatic -No acute intervention for mild leukopenia, adequate ANC at 2.51 Doppler of the bilateral lower extremities ordered, left lower extremity swelling greater than the right. Doctor attests: I performed a history and physical examination of this patient, developed impression and plan of care. Discussed with dictator. I agree with dictators note, documented as a scribe.
[2024-09-01] MEDS: POTASSIUM CHLORIDE ER 20 MEQ TAB.ER PO ONE (20:04)
[2024-09-01 20:16] LABS: Glucose,Whole Blood 110 mg/dL (70-110)
[2024-09-02] MEDS: POTASSIUM CHLORIDE 10 MEQ in WATER FOR INJECTION 1 100ML.BAG IVPB SCH ×3 (05:48→23:44)
[2024-09-02 07:10] LABS: Glucose,Whole Blood 102 mg/dL (70-110)
[2024-09-02] MEDS: POTASSIUM CHLORIDE ER 20 MEQ TAB.ER PO STA (08:21)
[2024-09-02 08:22] LABS: Anisocytosis Slight; HCT 27.5 % (34.0-46.0); MCH 32.8 pg (25.0-35.0); MCHC 32.7 g/dL (31.0-37.0); MCV 100.4 fL (80.0-100.0); Macrocytosis Slight; Mean Platelet Volume 8.8; RBC 2.74 m/uL (3.80-5.40); RDW 17.5 % (11.5-15.5); WBC 2.6 k/uL (3.8-10.6)
[2024-09-02 08:46] LABS: Platelet Count 77 k/uL (150-450)
[2024-09-02 12:10] LABS: Glucose,Whole Blood 116 mg/dL (70-110)
[2024-09-02] MEDS ORDERED: Potassium Replacement Protocol 1 EACH MISC MISCELLANE PRN (14:06)
--- NOTE | 2024-09-02 15:27 | P.PN ---
Subjective Progress Note Date: 09/02/24 74-year-old female with small cell lung cancer with metastatic to the cerebellum status post chemotherapy and immunotherapy, A-fib on Eliquis, hypertension, hyperlipidemia, diabetes, COPD presents to the ER with nausea/vomiting, diarrhea and lower abdominal pain ongoing for the past 5 days since receiving chemotherapy. In the ED she underwent extensive evaluation. BP 125/84, HR 85, T 98F, RR 16, 96% on RA. CBC, Coag panel, CMP significant for WBC 3.1, RBC 3.57, Plt 138, PT 12.7 INR 1.2, Na 133, K 1.9, glu 146, Ca 7, alk phos 163, alb 2.1. Mag 1.1. Lactic acid 2.8. UA + nitrite and LE. COVID, RSV, Flu neg. EKG sinus rhythm with RBBB, Q waves in V1 V2. CXR neg/ CT brain neg for acute pathology. Recent admission for meyers colitis requiring transfer to [facility], underwent C-scope which showed some polyps. She reports recovering fully from her colitis prior to undergoing chemotherapy. 09/01 Patient was seen and examined. Multiple episodes of diarrhea overnight, watery. K 2.1 last night. CMP significant for K 2.6, glu 112, Ca 6.9, alk phos 162, total protein 3.8, alb 2.1. C. diff negative. 09/02 Patient was seen and examined. Multiple episodes of diarrhea. CBC done today shows RBC 2.6, RBC 2.74, Hg 9, Hct 27.5, MCV 100.4, Plt 77, K 3.1. General: non toxic, no distress, appears at stated age Derm: warm, dry Head: atraumatic, normocephalic, symmetric Eyes: EOMI, no lid lag, anicteric sclera Mouth: no lip lesion, mucus membranes moist Cardiovascular: S1S2 reg, no murmur Lungs: CTA bilateral, no rhonchi, no rales , no accessory muscle use Abdominal: soft, nontender to palpation, no guarding, no appreciable organomegaly Ext: no gross muscle atrophy, no edema, no contractures Neuro: no focal neuro deficits Psych: Alert, oriented, appropriate affect Based on my assessment of this patient, this patient meets a high complexity level of care. Severe metabolic derangements due to intractable N/V and diarrhea: C. diff negative. Zofran 4 mg IV TID PRN. Discussed with Mandy GOTTI, check stool Cx, hold Imodium/Lomotil for now, NPO except ice chips, consider CT AP if clinically worsens. Hypokalemia: KCl 40 meq PO x 1 + 20 meq IV x 1. UTI: Rocephin 1g IV QD. UCx GNB. Follow UCx. Buttocks wound: Present on admission. Consult Wound care. HypoCa: Corrected is 8.5. 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 De Jesus. A-fib on Eliquis: Rate controlled. Not on AC due to previous GI bleed. Diabetes: ISS. Accuchecks ACHS. Hypoglycemic precautions. COPD not in acute exacerbation Resolved: Lactic acidosis. HypoMag. HypoNa CODE STATUS: NO CODE DVT Prophylaxis: Heparin SQ GI Prophylaxis: Protonix IV Designated medical POA if patient is not able to make medical decisions for themselves: I have reviewed the following healthcare network pricing consultant notes: Oncology. I have reviewed the results of the following tests: CBC, K. I have ordered the following tests: BMP in the AM. I have discussed the care of this patient with the following independent historian: RN. Family at bedside. I have independently interpreted the following test below: I have discussed the management of this patient with the following physician: Mandy GOTTI Objective - Vital Signs Vital signs: Vital Signs Temp 97.7 F 09/02/24 14:13 Pulse 65 09/02/24 14:13 Resp 16 09/02/24 14:13 BP 138/73 09/02/24 14:13 Pulse Ox 96 09/02/24 13:45 FiO2 Intake & Output 09/01/24 09/02/24 09/02/24 18:59 06:59 18:59 Intake Total 1256 Balance 1256 Weight 73.482 kg Intake: Oral 1256 Other: Voiding Method External Catheter Diaper Diaper # Voids 4 3 # Bowel Movements 4 3 - Labs CBC & Chem 7: 09/02/24 07:46 09/02/24 12:28 Labs: Abnormal Lab Results - Last 24 Hours (Table) 09/01/24 09/01/24 09/02/24 Range/Units 17:02 17:41 04:38 WBC (3.8-10.6) k/uL RBC (3.80-5.40) m/uL Hgb (11.4-16.0) gm/dL Hct (34.0-46.0) % MCV (80.0-100.0) fL RDW (11.5-15.5) % Plt Count (150-450) k/uL Potassium 3.2 L 3.1 L (3.5-5.1) mmol/L POC Glucose (mg/dL) 128 H (70-110) mg/dL 09/02/24 09/02/24 Range/Units 07:46 12:08 WBC 2.6 L (3.8-10.6) k/uL RBC 2.74 L (3.80-5.40) m/uL Hgb 9.0 L D (11.4-16.0) gm/dL Hct 27.5 L (34.0-46.0) % MCV 100.4 H (80.0-100.0) fL RDW 17.5 H (11.5-15.5) % Plt Count 77 L (150-450) k/uL Potassium (3.5-5.1) mmol/L POC Glucose (mg/dL) 116 H (70-110) mg/dL Microbiology - Last 24 Hours (Table) 09/01/24 12:40 Stool Culture - Preliminary Stool 08/31/24 18:11 Urine Culture - Preliminary Urine,Voided Gram Neg Bacilli
[2024-09-02 17:11] LABS: Glucose,Whole Blood 95 mg/dL (70-110)
--- NOTE | 2024-09-02 17:32 | CT ---
EXAMINATION TYPE: CT angio abdomen pelvis DATE OF EXAM: 09/02/2024 5:24 PM COMPARISON: None. CLINICAL INDICATION: Female, 74 years old with history of persistent abd pain, diarrhea; H, Persist ent abdominal pain and diarrhea, ordering Doctor wanted a comparison from study done on 08-15-24. TECHNIQUE: Multiple thin slice sub-millimeter images were obtained after administration of contrast. MIP reconstructed images and maximum intensity projection images were obtained. CT angio abdomen pel vis CT Contrast: Contrast used:80 ml mL of Isovue 370 with IV Contrast, Oral contrast used: without Oral Contrast None CT DLP: 728 mGycm, Automated exposure control for dose reduction was used. FINDINGS: CTA Abdomen and pelvis: Similar Aneurysmal dilation of the infrarenal abdominal aorta up tor 3.8 cm a nd measuring transverse is scattered atherosclerotic ulcer is present.. Atherosclerotic ulcer seen on prior has thrombosed since near the left renal sinus. Atherosclerotic plaquing is identified within the abdominal aorta. The origins of the superior mesenteric artery, renal arteries, inferior mesente ed artery, and celiac axis are patent. The iliac vessels are normal in morphology LOWER CHEST: Trace bilateral pleural effusions intralobular septal thickening with cardiomegaly. LIVER: Diffuse low density areas scattered throughout the liver which is hard to compare to prior giv en differences in bolus timing. GALLBLADDER AND BILE DUCTS: Unremarkable. PANCREAS: Unremarkable. SPLEEN: Unremarkable. ADRENAL GLANDS: Unremarkable. KIDNEYS AND URETERS: No evidence of hydronephrosis or renal calculus. The ureters are unremarkable. Bilateral simple appearing renal cysts. PELVIS BLADDER: Unremarkable REPRODUCTIVE: Unremarkable. ABDOMEN & PELVIS STOMACH AND BOWEL: Circumferential wall thickening of the internal ear: More pronounced in the rectum with focal eccentric wall thickening up to 15 mm. Evaluation of the gastrointestinal tract demonstra melissa no evidence of high density hemorrhage on arterial phase or pooling of blood on delayed phases. N o evidence of bowel obstruction. Scattered colonic diverticula present. PERITONEUM: No evidence for pneumoperitoneum. Small amount of streaky edema/free fluid in the pelvis likely reactive to other findings in the abdomen. MUSCULOSKELETAL: Moderate disc degeneration changes are present throughout the thoracolumbar spine. P ostsurgical changes to the spine L5-S1. LYMPH NODES: No gross evidence for lymphadenopathy. SOFT TISSUE/ABDOMINAL WALL: Anasarca of the soft tissues. IMPRESSION: 1. Essentially no significant change, Similar evidence moderate meyers colitis of the large bowel. Diff erential remains for pancolitis such as Pseudomonas colitis. 2. Evidence of congestive heart failure with volume overload with new pleural effusions. 3. Colonic diverticulosis. 4. Infrarenal abdominal aortic aneurysm measuring up to 4.4 cm similar prior. 5. Hepatic cirrhosis with Innumerable hepatic lesions present as seen on prior. Measurements and chucho luation for progression somewhat limited given phase of contrast. [facility], Workstation: [id number], 09/02/2024 5:29 PM
[2024-09-02] MEDS: CHOLESTYRAMINE (WITH SUGAR) 4 GM PACKET PO SCH (17:50)
[2024-09-02 20:11] LABS: Glucose,Whole Blood 149 mg/dL (70-110)
--- NOTE | 2024-09-02 21:01 | P.PN ---
Subjective Progress Note Date: 09/02/24 Principal diagnosis: Abd pain, diarrhea. SCLC extensive stage disease, on treatment In f/u today diarrhea is persistent, patient still has pretty significant skin breakdown from the diarrhea and pressure of sitting most of the time. She is still feeling pretty weak today, appetite is still poor some mild nausea but denies any vomiting. No fevers, shortness of breath, dysuria. Objective - Vital Signs Vital signs: Vital Signs Temp 97.7 F 09/02/24 14:13 Pulse 65 09/02/24 14:13 Resp 16 09/02/24 14:13 BP 138/73 09/02/24 14:13 Pulse Ox 96 09/02/24 13:45 FiO2 Intake & Output 09/01/24 09/02/24 09/02/24 18:59 06:59 18:59 Intake Total 1256 Balance 1256 Weight 73.482 kg Intake: Oral 1256 Other: Voiding Method External Catheter Diaper Diaper # Voids 4 3 # Bowel Movements 4 3 - Constitutional General appearance: Present: average body habitus, cooperative, no acute distress - EENT Eyes: Present: anicteric sclerae, EOMI ENT: Present: hearing grossly normal, normal oropharynx - Respiratory Respiratory: bilateral: CTA - Cardiovascular Rhythm: regular Heart sounds: normal: S1, S2 Abnormal Heart Sounds: Absent: systolic murmur, diastolic murmur, rub, S3 Gallop, S4 Gallop, click, other - Peripheral edema leg Peripheral Edema: bilateral: None - Gastrointestinal General gastrointestinal: Present: normal bowel sounds, soft, tenderness (mild) - Neurologic Neurologic: Present: CNII-XII intact - Musculoskeletal Musculoskeletal: Present: generalized weakness - Psychiatric Psychiatric: Present: A&O x's 3, appropriate affect, intact judgment & insight - Labs CBC & Chem 7: 09/02/24 07:46 09/02/24 20:25 Labs: Abnormal Lab Results - Last 24 Hours (Table) 09/01/24 09/01/24 09/02/24 Range/Units 17:02 17:41 04:38 WBC (3.8-10.6) k/uL RBC (3.80-5.40) m/uL Hgb (11.4-16.0) gm/dL Hct (34.0-46.0) % MCV (80.0-100.0) fL RDW (11.5-15.5) % Plt Count (150-450) k/uL Potassium 3.2 L 3.1 L (3.5-5.1) mmol/L POC Glucose (mg/dL) 128 H (70-110) mg/dL 09/02/24 09/02/24 Range/Units 07:46 12:08 WBC 2.6 L (3.8-10.6) k/uL RBC 2.74 L (3.80-5.40) m/uL Hgb 9.0 L D (11.4-16.0) gm/dL Hct 27.5 L (34.0-46.0) % MCV 100.4 H (80.0-100.0) fL RDW 17.5 H (11.5-15.5) % Plt Count 77 L (150-450) k/uL Potassium (3.5-5.1) mmol/L POC Glucose (mg/dL) 116 H (70-110) mg/dL Microbiology - Last 24 Hours (Table) 09/01/24 12:40 Stool Culture - Preliminary Stool 08/31/24 18:11 Urine Culture - Preliminary Urine,Voided Gram Neg Bacilli - Imaging and Cardiology Venous US: report reviewed (BLE, neg for DVT) Assessment and Plan (1) Diarrhea Current Visit: Yes Status: Acute Priority: High Code(s): R19.7 - DIARRHEA, UNSPECIFIED SNOMED Code(s): 28804362 (2) Dehydration Current Visit: Yes Status: Acute Priority: High Code(s): E86.0 - DEHYDRATION SNOMED Code(s): 21175041 (3) Hypokalemia Current Visit: Yes Status: Acute Code(s): E87.6 - HYPOKALEMIA SNOMED Code(s): 62837798 (4) Pancytopenia due to antineoplastic chemotherapy Current Visit: No Status: Acute Code(s): D61.810 - ANTINEOPLASTIC CHEMOT HERAPY INDUCED PANCYTOPENIA; T45.1X5A - ADVERSE EFFECT OF ANTINEOPLASTIC AND IMMUNOSUP DRUGS, INIT SNOMED Code(s): 126572035738834 (5) Weakness Current Visit: No Status: Acute Priority: High Code(s): R53.1 - WEAKNESS SNOMED Code(s): 29390753 (6) Extensive stage primary small cell carcinoma of lung Current Visit: No Status: Chronic Priority: Medium Code(s): C34.90 - MALIGNANT NEOPLASM OF UNSP PART OF UNSP BRONCHUS OR LUNG SNOMED Code(s): 333805865830774 Plan: Diarrhea -C. difficile negative -Stool culture ordered -Case discussed with Attending, Nga ordered -Patient reporting some thirst, only 2 diarrhea episodes today. Will change to a clear liquid diet and see how patient does. If she experiences any pain or increase in diarrhea she should go back to n.p.o. -Previous pancolitis at last visit, no significant change in diarrhea. CTA AP ordered and comparison requested to see if any improvements Dehydration, hypokalemia -Secondary to diarrhea -Patient is on electrolyte replacement and fluids Pancytopenia secondary to antineoplastic chemotherapy -Likely drops in counts secondary to hemoconcentration from dehydration. Will cont to monitor labs closely -Labs daily, stable today -Transfuse for hemoglobin less than 7 or platelets less than 10,000 or if symptomatic Doppler of the bilateral lower extremities neg for DVT
[2024-09-03 07:29] LABS: Glucose,Whole Blood 110 mg/dL (70-110)
[2024-09-03] MEDS: POTASSIUM CHLORIDE 10 MEQ in WATER FOR INJECTION 1 100ML.BAG IVPB SCH (09:29)
[2024-09-03] MEDS: FUROSEMIDE 10 MG/ML 4 ML VIAL IV STA (09:41)
[2024-09-03] MEDS: ALPRAZolam 0.25 MG TAB PO PRN (11:37)
[2024-09-03 11:56] LABS: Glucose,Whole Blood 169 mg/dL (70-110)
--- NOTE | 2024-09-03 14:21 | P.PN ---
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 In the ED she underwent extensive evaluation. BP 125/84, HR 85, T 98F, RR 16, 96% on RA. CBC, Coag panel, CMP significant for WBC 3.1, RBC 3.57, Plt 138, PT 12.7 INR 1.2, Na 133, K 1.9, glu 146, Ca 7, alk phos 163, alb 2.1. Mag 1.1. Lactic acid 2.8. UA + nitrite and LE. COVID, RSV, Flu neg. EKG sinus rhythm with RBBB, Q waves in V1 V2. CXR neg/ CT brain neg for acute pathology. Recent admission for meyers colitis requiring transfer to [facility], underwent C-scope which showed some polyps. She reports recovering fully from her colitis prior to undergoing chemotherapy. 09/01 Patient was seen and examined. Multiple episodes of diarrhea overnight, watery. K 2.1 last night. CMP significant for K 2.6, glu 112, Ca 6.9, alk phos 162, total protein 3.8, alb 2.1. C. diff negative. 09/02 Patient was seen and examined. Multiple episodes of diarrhea. CBC done today shows RBC 2.6, RBC 2.74, Hg 9, Hct 27.5, MCV 100.4, Plt 77, K 3.1. 09/03 Patient was seen and examined. > 3 liquid BM over the past 24H. K is 3.6. 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 UCx citrobacter freundii. General: non toxic, no distress, appears at stated age Derm: warm, dry Head: atraumatic, normocephalic, symmetric Eyes: EOMI, no lid lag, anicteric sclera Mouth: no lip lesion, mucus membranes moist Cardiovascular: S1S2 reg, no murmur Lungs: CTA bilateral, no rhonchi, no rales , no accessory muscle use Abdominal: soft, nontender to palpation, no guarding, no appreciable organomegaly Ext: no gross muscle atrophy, no edema, no contractures Neuro: no focal neuro deficits Psych: Alert, oriented, appropriate affect Based on my assessment of this patient, this patient meets a high complexity level of care. Severe metabolic derangements due to intractable N/V and diarrhea: CT with meyers colitis similar to previous admission. C. diff negative. Zofran 4 mg IV TID PRN. Questra 4g PO BID. Stool Cx pending. Volume overload with pleural effusions: Lasix 40 mg IV x 1. Echo ordered. Macrocytic anemia: Acute drop but no active signs of bleeding. Likely dilutional. CBC pending this morning. UTI: UCx citrobacter freundii. Asymptomatic. DC Rocephin. Buttocks wound: Present on admission. Consult Wound care. HypoCa: Corrected is 8.5. 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 De Jesus. A-fib on Eliquis: Rate controlled. Not on AC due to previous GI bleed. Diabetes: ISS. Accuchecks ACHS. Hypoglycemic precautions. COPD not in acute exacerbation Resolved: Lactic acidosis. HypoMag. HypoNa. HypoK CODE STATUS: NO CODE DVT Prophylaxis: Heparin SQ GI Prophylaxis: Protonix IV Designated medical POA if patient is not able to make medical decisions for themselves: I have reviewed the following configuration management consultant notes: Oncology. I have reviewed the results of the following tests: CT AP, K I have ordered the following tests: CBC, BMP pending. I have discussed the care of this patient with the following independent historian: MARINA. Family at bedside. I have independently interpreted the following test below: I have discussed the management of this patient with the following physician: Objective - Vital Signs Vital signs: Vital Signs Temp 97.6 F 09/03/24 07:24 Pulse 68 09/03/24 07:24 Resp 16 09/03/24 07:24 BP 148/73 09/03/24 07:24 Pulse Ox 98 09/03/24 07:24 FiO2 Intake & Output 09/02/24 09/03/24 09/03/24 18:59 06:59 18:59 Intake Total 480 Output Total 5 Balance 475 Intake: Oral 480 Output: Urine/Stool Mix 5 Other: Voiding Method Diaper Diaper # Voids 3 # Bowel Movements 3 - Labs CBC & Chem 7: 09/02/24 07:46 09/03/24 06:33 Labs: Abnormal Lab Results - Last 24 Hours (Table) 09/02/24 09/02/24 09/02/24 Range/Units 12:08 20:04 20:25 Potassium 3.4 L (3.5-5.1) mmol/L POC Glucose (mg/dL) 116 H 149 H (70-110) mg/dL Microbiology - Last 24 Hours (Table) 09/01/24 12:40 Stool Culture - Preliminary Stool 08/31/24 18:11 Urine Culture - Final Urine,Voided Citrobacter freundii
--- NOTE | 2024-09-03 15:51 | P.PN ---
Subjective Progress Note Date: 09/03/24 Principal diagnosis: Abd pain, diarrhea. SCLC extensive stage disease, on treatment In f/u today diarrhea is persistent, 8+ stools this AM. Denies any abd pain, no pain with palpation of the abd, no black, bloody or mucus stool, no abd cramping. Pt is reporting she is hungry and wants something to eat. No F, N,V. Objective - Vital Signs Vital signs: Vital Signs Temp 97.5 F L 09/03/24 11:53 Pulse 70 09/03/24 11:53 Resp 16 09/03/24 11:53 BP 123/74 09/03/24 11:53 Pulse Ox 97 09/03/24 11:53 FiO2 Intake & Output 09/02/24 09/03/24 09/03/24 18:59 06:59 18:59 Intake Total 480 Output Total 5 Balance 475 Intake: Oral 480 Output: Urine/Stool Mix 5 Other: Voiding Method Diaper Diaper # Voids 3 3 # Bowel Movements 3 2 - Constitutional General appearance: Present: average body habitus, cooperative, no acute distress - EENT Eyes: Present: anicteric sclerae, EOMI ENT: Present: hearing grossly normal, normal oropharynx - Respiratory Respiratory: bilateral: CTA - Cardiovascular Rhythm: regular Heart sounds: normal: S1, S2 Abnormal Heart Sounds: Absent: systolic murmur, diastolic murmur, rub, S3 Gallop, S4 Gallop, click, other - Peripheral edema leg Peripheral Edema: bilateral: Trace - Gastrointestinal Gastrointestinal Comment(s): no rebound tenderness General gastrointestinal: Present: normal bowel sounds, soft. Absent: absent bowel sounds, decreased bowel sounds, distended, hepatomegaly, hyperactive bowel sounds, organomegaly, rigid, scaphoid, splenomegaly, tenderness, umbilical hernia, ventral hernia - Integumentary Integumentary: Present: normal - Neurologic Neurologic: Present: CNII-XII intact - Musculoskeletal Musculoskeletal: Present: generalized weakness, strength equal bilaterally - Psychiatric Psychiatric: Present: A&O x's 3, appropriate affect, intact judgment & insight - Labs CBC & Chem 7: 09/02/24 07:46 09/03/24 06:33 Labs: Abnormal Lab Results - Last 24 Hours (Table) 09/02/24 09/02/24 09/03/24 Range/Units 20:04 20:25 11:55 Potassium 3.4 L (3.5-5.1) mmol/L POC Glucose (mg/dL) 149 H 169 H (70-110) mg/dL Microbiology - Last 24 Hours (Table) 09/01/24 12:40 Stool Culture - Preliminary Stool 08/31/24 18:11 Urine Culture - Final Urine,Voided Citrobacter freundii - Imaging and Cardiology CT scan - abdomen: report reviewed CT scan - pelvis: report reviewed Assessment and Plan (1) Diarrhea Current Visit: Yes Status: Acute Priority: High Code(s): R19.7 - DIARRHEA, UNSPECIFIED SNOMED Code(s): 42419166 (2) Dehydration Current Visit: Yes Status: Acute Priority: High Code(s): E86.0 - DEHY DRATION SNOMED Code(s): 82368847 (3) Hypokalemia Current Visit: Yes Status: Acute Code(s): E87.6 - HYPOKALEMIA SNOMED Code(s): 34752096 (4) Pancytopenia due to antineoplastic chemotherapy Current Visit: No Status: Acute Code(s): D61.810 - ANTINEOPLASTIC CHEMOTHERAPY INDUCED PANCYTOPENIA; T45.1X5A - ADVERSE EFFECT OF ANTINEOPLASTIC AND IMMUNOSUP DRUGS, INIT SNOMED Code(s): 603339262111720 (5) Weakness Current Visit: No Status: Acute Priority: High Code(s): R53.1 - WEAKNESS SNOMED Code(s): 86380906 (6) Extensive stage primary small cell carcinoma of lung Current Visit: No Status: Chronic Priority: Medium Code(s): C34.90 - MALIGNANT NEOPLASM OF UNSP PART OF UNSP BRONCHUS OR LUNG SNOMED Code(s): 062542741038944 Plan: Diarrhea -C. difficile negative -Stool culture neg so far, not final -Questran started. Added imodium -Pt abd exam overall benign and reports hunger. Diet changed to full liquid. Pt instructed any abd discomfort to immediately stop eating. -Previous pancolitis at last visit, no significant change in diarrhea. CTA AP ordered, compared, no reported change. Did review colonoscopy notes from [facility]. 6 3-5mm polyps seen, some hemorrhoids, no reports of colitis. Is diarrhea from drug vs IO SE from when she was on immunotherapy in Sept vs disease spread into the mesentery of the abd causing colitis to be seen on imaging but not on colonoscopy? Will try antidiarrheals 1st and see if there are any improvements. Will wait to start any steroids so as to not put pt at higher risk for perforation if there is drug induced colitis and the bowel/mesentery is really inflamed -requesting stool volume be measured Dehydration, hypokalemia -Secondary to diarrhea -Patient is on electrolyte replacement and fluids Pancytopenia secondary to antineoplastic chemotherapy -Likely drops in counts secondary to hemoconcentration from dehydration. Will cont to monitor labs closely -Labs daily, stable today -Transfuse for hemoglobin less than 7 or platelets less than 10,000 or if sy mptomatic Doppler of the bilateral lower extremities neg for DVT
[2024-09-03] MEDS: LOPERAMIDE 2 MG CAP PO SCH (16:00)
[2024-09-03 17:48] LABS: Glucose,Whole Blood 126 mg/dL (70-110)
[2024-09-03] MEDS: HYDROcodone/APAP 5-325MG 1 EACH TAB PO PRN (18:51)
[2024-09-03] MEDS: POTASSIUM CHLORIDE ER 20 MEQ TAB.ER PO SCH (20:15)
[2024-09-03 20:43] LABS: Glucose,Whole Blood 137 mg/dL (70-110)
[2024-09-04] MEDS ORDERED: POTASSIUM CHLORIDE 20 MEQ in WATER FOR INJECTION 1 100ML.BAG IVPB SCH (04:15)
[2024-09-04] MEDS: POTASSIUM CHLORIDE 10 MEQ in WATER FOR INJECTION 1 100ML.BAG IVPB SCH (04:21)
[2024-09-04 05:29] LABS: Anisocytosis Slight; HCT 27.8 % (34.0-46.0); Hypochromasia Slight; MCHC 32.4 g/dL (31.0-37.0); Macrocytosis Moderate; Mean Platelet Volume 9.9; RBC 2.73 m/uL (3.80-5.40); RDW 17.2 % (11.5-15.5); WBC 2.4 k/uL (3.8-10.6)
[2024-09-04 05:32] LABS: Platelet Count 52 k/uL (150-450)
[2024-09-04 05:40] LABS: African American GFR (CKD) 70 (>60 ml/min/1.73 sqM); Anion Gap 2 mmol/L; Blood Urea Nitrogen 6 mg/dL (7-17); Calcium 7.7 mg/dL (8.4-10.2); Carbon Dioxide 24 mmol/L (22-30); Chloride 106 mmol/L (98-107); Glucose 106 mg/dL (74-99); Non-African American GFR(CKD) 61 (>60 ml/min/1.73 sqM); Potassium 3.6 mmol/L (3.5-5.1); Sodium 132 mmol/L (137-145)
[2024-09-04 07:42] LABS: Glucose,Whole Blood 115 mg/dL (70-110)
--- NOTE | 2024-09-04 11:05 | CDI ---
Documentation Clarification Form Date: 09/04/2024 10:40:44 AM From: Liz Lee RN CCDS Phone: [phone] Admit Date: 08/31/2024 10:06:00 AM Patient Name: Marilyn Moeller Visit Number: [id number] Discharge Date: ATTENTION: The Clinical Documentation Specialists (CDI) and [facility] Coding Staff appreciate your assistance in clarifying documentation. Please respond to the clarification below the line at the bottom and electronically sign. The CDI & [facility] Coding staff will review the response and follow-up if needed. Please note: Queries are made part of the Legal Health Record. If you have any questions, please contact the author of this message via ITS. Doctor: Juarez Parson There is documentation of Diarrhea, HP, 08/31. Additional clarification is requested. History/Risk Factors: 74 year old female presented to the ED with nausea, vomiting, diarrhea and lower abdominal pain ongoing for the past five days since receiving chemotherapy. Medical history: Small cell lung cancer with metastatic to the cerebellum status post chemotherapy and immunotherapy. Clinical Indicators: VSS, 08/31: B/P 125/84; HR 85; Temp 98.0F Oral; RR 16; SpO2 96% ra CT Angio Abdomen 09/02: Similar evidence moderate meyers colitis of the large bowel. Differential remains for pancolitis such as Pseudomonas colitis. Stool culture: 09/04 Final No Salmonella Shiegella or Campylobacter Isolated. No E. Coli 0157: H7 isolaed. Negative for ([facility]) Shigatoxin 1 and 2 08/31, C difficile Negative 08/31, HP: Recent admission for meyers colitis requiring transfer to [facility], underwent C-scope which showed some polyps. She reports recovering fully from her colitis prior to undergoing chemotherapy. Treatment: 09/02 Questran, 09/03 Imodium, 08/31 Zofran IVP prn, 08/31 Protonix IV Daily; Can you please clarify Diarrhea ? [ x] Diarrhea due to antineoplastic chemotherapy [ ] Diarrhea due to [ ] Other, please specify [ ] Unable to determine (Template Last Revised: December 2020) MTDD
[2024-09-04 12:22] LABS: Glucose,Whole Blood 124 mg/dL (70-110)
--- NOTE | 2024-09-04 12:22 | CA ---
Transthoracic Echo Report Name: Marilyn Moeller Age: 74 Gender: F : 1950 Exam Date: 09/03/2024 14:38 Exam Location: [facility] Ht (in): 65 Wt (lb): 162 Ordering Physician: Juarez Parson MD Attending/Referring Phys: Director Metabolism Lucila Geiger RDCS Procedure CPT: Indications: chf Cardiac Hx: Technical Quality: Fair Contrast 1: Total Dose (mL): Contrast 2: Total Dose (mL): MEASUREMENTS (Male / Female) Normal Values 2D ECHO LV Diastolic Diameter PLAX 5.1 cm 4.2 - 5.9 / 3.9 - 5.3 cm LV Systolic Diameter PLAX 3.5 cm IVS Diastolic Thickness 1.2 cm 0.6 - 1.0 / 0.6 - 0.9 cm LVPW Diastolic Thickness 1.4 cm 0.6 - 1.0 / 0.6 - 0.9 cm LV Relative Wall Thickness 0.5 RV Internal Dim ED PLAX 3.5 cm LA Systolic Diameter LX 3.7 cm 3.0 - 4.0 / 2.7 - 3.8 cm LV Diastolic Volume MOD BP 99.0 cm??? 67 - 155 / 56 - 104 cm??? LV Systolic Volume MOD BP 58.8 cm??? 22 - 58 / 19 - 49 cm??? LV Ejection Fraction MOD BP 40.6 % >= 55 % LV Cardiac Index MOD BP 1345.5 cm???/min???m??? LV Diastolic Volume MOD 4C 116.3 cm??? LV Systolic Volume MOD 4C 70.2 cm??? LV Ejection Fraction MOD 4C 39.6 % LV Cardiac Index MOD 4C 1540.2 cm???/min???m??? LV Diastolic Length 4C 7.7 cm LV Systolic Length 4C 6.6 cm LV Diastolic Volume MOD 2C 83.7 cm??? LV Systolic Volume MOD 2C 48.5 cm??? LV Ejection Fraction MOD 2C 42.1 % LV Cardiac Index MOD 2C 1180.3 cm???/min???m??? LV Diastolic Length 2C 8.0 cm LV Systolic Length 2C 6.9 cm M-MODE Aortic Root Diameter MM 2.9 cm LA Systolic Diameter MM 2.1 cm LA Ao Ratio MM 0.7 DOPPLER AV Peak Velocity 138.4 cm/s AV Peak Gradient 7.7 mmHg Mitral E Point Velocity 51.3 cm/s Mitral A Point Velocity 85.3 cm/s Mitral E to A Ratio 0.6 MV Deceleration Time 434.7 ms MV E' Velocity 5.2 cm/s Mitral E to MV E' Ratio 9.9 TR Peak Velocity 222.7 cm/s TR Peak Gradient 19.8 mmHg Right Ventricular Systolic Press 29.9 mmHg FINDINGS Left Ventricle Left ventricular ejection fraction is estimated at 45-50 %. Mildly increased septal wall thickness. Moderately increased posterior wall thickness. Mildly increased left ventricular systolic volume. Moderately decreased left ventricular ejection fraction. Right Ventricle Normal RV size. Right ventricular systolic pressure within normal limits. Right Atrium Normal right atrial size. No right atrial thrombus or mass seen. Left Atrium Normal left atrial size. No left atrial thrombus or mass present. Mitral Valve Structurally normal mitral valve. Mild mitral regurgitation. Aortic Valve Trileaflet aortic valve. Aortic valve sclerosis. No aortic stenosis. No aortic regurgitation. Tricuspid Valve Structurally normal tricuspid valve. Mild tricuspid regurgitation. Pulmonic Valve Structurally normal pulmonic valve. No pulmonic regurgitation. Pericardium No pericardial or pleural effusion. Aorta Normal size aortic root and proximal ascending aorta. CONCLUSIONS LVEF 45 to 50% Mildly reduced LV systolic function. Mild concentric LVH Mild MR, mild TR Normal RV size. RVSP 30 mm Previewed by: Dr Michael Zavala (Electronically Signed) Final Date: 04 September 2024 12:21
--- NOTE | 2024-09-04 14:25 | P.PN ---
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 In the ED she underwent extensive evaluation. BP 125/84, HR 85, T 98F, RR 16, 96% on RA. CBC, Coag panel, CMP significant for WBC 3.1, RBC 3.57, Plt 138, PT 12.7 INR 1.2, Na 133, K 1.9, glu 146, Ca 7, alk phos 163, alb 2.1. Mag 1.1. Lactic acid 2.8. UA + nitrite and LE. COVID, RSV, Flu neg. EKG sinus rhythm with RBBB, Q waves in V1 V2. CXR neg/ CT brain neg for acute pathology. Recent admission for meyers colitis requiring transfer to [facility], underwent C-scope which showed some polyps. She reports recovering fully from her colitis prior to undergoing chemotherapy. 09/01 Patient was seen and examined. Multiple episodes of diarrhea overnight, watery. K 2.1 last night. CMP significant for K 2.6, glu 112, Ca 6.9, alk phos 162, total protein 3.8, alb 2.1. C. diff negative. 09/02 Patient was seen and examined. Multiple episodes of diarrhea. CBC done today shows RBC 2.6, RBC 2.74, Hg 9, Hct 27.5, MCV 100.4, Plt 77, K 3.1. 09/03 Patient was seen and examined. > 3 liquid BM over the past 24H. K is 3.6. 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 UCx citrobacter freundii. 09/04 Patient was seen and examined. 6 liquid BM over the past 24H. Started on Imodium in addition to Questran. CBC and BMP significant for WBC 2.4, RBC 2.73, Hg 9, Hct 27.8, MCV 102, Plt 52, Na 132, BUN 6, glu 106, Ca 7.7. Echo shows EF 45-50% with mild LVH, MR/TR. General: non toxic, no distress, appears at stated age Derm: warm, dry Head: atraumatic, normocephalic, symmetric Eyes: EOMI, no lid lag, anicteric sclera Mouth: no lip lesion, mucus membranes moist Cardiovascular: S1S2 reg, no murmur Lungs: CTA bilateral, no rhonchi, no rales , no accessory muscle use Abdominal: soft, nontender to palpation, no guarding, no appreciable organomegaly Ext: no gross muscle atrophy, no edema, no contractures Neuro: no focal neuro deficits Psych: Alert, oriented, appropriate affect Based on my assessment of this patient, this patient meets a high complexity level of care. Severe metabolic derangements due to intractable N/V and diarrhea: CT with meyers colitis similar to previous admission. C. diff negative. Zofran 4 mg IV TID PRN. Questra 4g PO BID. Imodium 1 g PO QID scheduled. Stool Cx neg. Volume overload with pleural effusions: Status post Lasix 40 mg IV x 1. Echo shows EF 45-50% with mild LVH, MR/TR. Macrocytic anemia: Acute drop but no active signs of bleeding. Likely dilutional. Stable. UTI: UCx citrobacter freundii. Asymptomatic. DC Rocephin. Buttocks wound: Present on admission. Consult Wound care. HypoCa: Corrected is 8.5. 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 De Jesus. A-fib on Eliquis: Rate controlled. Not on AC due to previous GI bleed. Diabetes: ISS. Accuchecks ACHS. Hypoglycemic precautions. COPD not in acute exacerbation Resolved: Lactic acidosis. HypoMag. HypoNa. HypoK Patient with continued diarrhea. Electrolytes improved. Plans for discharge when symptomatically better. CODE STATUS: NO CODE DVT Prophylaxis: Heparin SQ GI Prophylaxis: Protonix IV Designated medical POA if patient is not able to make medical decisions for themselves: I have reviewed the following healthcare economics consultant notes: Oncology. I have reviewed the results of the following tests: CBC. BMP. Stool Cx. Echo. I have ordered the following tests: I have discussed the care of this patient with the following independent historian: Family. I have independently interpreted the following test below: I have discussed the management of this patient with the following physician: Objective - Vital Signs Vital signs: Vital Signs Temp 98.3 F 09/04/24 07:30 Pulse 74 09/04/24 07:30 Resp 15 09/04/24 07:30 BP 145/79 09/04/24 07:30 Pulse Ox 100 09/04/24 07:30 FiO2 Intake & Output 09/03/24 09/04/24 09/04/24 18:59 06:59 18:59 Other: Voiding Method Diaper # Voids 1 # Bowel Movements 2 - Labs CBC & Chem 7: 09/04/24 05:10 09/04/24 11:10 Labs: Abnormal Lab Results - Last 24 Hours (Table) 09/03/24 09/03/24 09/03/24 Range/Units 11:55 17:47 17:50 WBC (3.8-10.6) k/uL RBC (3.80-5.40) m/uL Hgb (11.4-16.0) gm/dL Hct (34.0-46.0) % MCV (80.0-100.0) fL RDW (11.5-15.5) % Plt Count (150-450) k/uL Sodium (137-145) mmol/L Potassium 3.2 L (3.5-5.1) mmol/L BUN (7-17) mg/dL Glucose (74-99) mg/dL POC Glucose (mg/dL) 169 H 126 H (70-110) mg/dL Calcium (8.4-10.2) mg/dL 09/03/24 09/04/24 09/04/24 Range/Units 20:39 00:36 05:10 WBC 2.4 L (3.8-10.6) k/uL RBC 2.73 L (3.80-5.40) m/uL Hgb 9.0 L (11.4-16.0) gm/dL Hct 27.8 L (34.0-46.0) % MCV 102.0 H (80.0-100.0) fL RDW 17.2 H (11.5-15.5) % Plt Count 52 L (150-450) k/uL Sodium (137-145) mmol/L Potassium 3.2 L (3.5-5.1) mmol/L BUN (7-17) mg/dL Glucose (74-99) mg/dL POC Glucose (mg/dL) 137 H (70-110) mg/dL Calcium (8.4-10.2) mg/dL 09/04/24 09/04/24 Range/Units 05:10 07:41 WBC (3.8-10.6) k/uL RBC (3.80-5.40) m/uL Hgb (11.4-16.0) gm/dL Hct (34.0-46.0) % MCV (80.0-100.0) fL RDW (11.5-15.5) % Plt Count (150-450) k/uL Sodium 132 L (137-145) mmol/L Potassium (3.5-5.1) mmol/L BUN 6 L (7-17) mg/dL Glucose 106 H (74-99) mg/dL POC Glucose (mg/dL) 115 H (70-110) mg/dL Calcium 7.7 L (8.4-10.2) mg/dL Microbiology - Last 24 Hours (Table) 09/01/24 12:40 Stool Culture - Preliminary Stool
[2024-09-04 17:34] LABS: Glucose,Whole Blood 100 mg/dL (70-110)
--- NOTE | 2024-09-04 20:08 | P.PN ---
Subjective Progress Note Date: 09/04/24 No acute events. Diarrhea improving, more formed. Tolerating full liquid diet. Objective - Vital Signs Vital signs: Vital Signs Temp 98.1 F 09/04/24 14:15 Pulse 69 09/04/24 16:25 Resp 17 09/04/24 16:25 BP 118/64 09/04/24 16:25 Pulse Ox 96 09/04/24 14:15 FiO2 Intake & Output 09/03/24 09/04/24 09/04/24 18:59 06:59 18:59 Intake Total 0 Balance 0 Weight 73.482 kg Intake: Oral 0 Other: Voiding Method Diaper # Voids 1 # Bowel Movements 2 - Constitutional General appearance: Present: average body habitus, no acute distress - EENT Eyes: Present: anicteric sclerae, EOMI ENT: Present: hearing grossly normal - Respiratory Details: breathing is even and unlabored - Cardiovascular Details: skin warm and dry - Gastrointestinal General gastrointestinal: Present: soft. Absent: tenderness - Integumentary Integumentary: Absent: cyanotic - Psychiatric Psychiatric: Present: A&O x's 3 - Labs CBC & Chem 7: 09/04/24 05:10 09/04/24 11:10 Labs: Abnormal Lab Results - Last 24 Hours (Table) 09/03/24 09/03/24 09/04/24 Range/Units 17:50 20:39 00:36 WBC (3.8-10.6) k/uL RBC (3.80-5.40) m/uL Hgb (11.4-16.0) gm/dL Hct (34.0-46.0) % MCV (80.0-100.0) fL RDW (11.5-15.5) % Plt Count (150-450) k/uL Sodium (137-145) mmol/L Potassium 3.2 L 3.2 L (3.5-5.1) mmol/L BUN (7-17) mg/dL Glucose (74-99) mg/dL POC Glucose (mg/dL) 137 H (70-110) mg/dL Calcium (8.4-10.2) mg/dL 09/04/24 09/04/24 09/04/24 Range/Units 05:10 05:10 07:41 WBC 2.4 L (3.8-10.6) k/uL RBC 2.73 L (3.80-5.40) m/uL Hgb 9.0 L (11.4-16.0) gm/dL Hct 27.8 L (34.0-46.0) % MCV 102.0 H (80.0-100.0) fL RDW 17.2 H (11.5-15.5) % Plt Count 52 L (150-450) k/uL Sodium 132 L (137-145) mmol/L Potassium (3.5-5.1) mmol/L BUN 6 L (7-17) mg/dL Glucose 106 H (74-99) mg/dL POC Glucose (mg/dL) 115 H (70-110) mg/dL Calcium 7.7 L (8.4-10.2) mg/dL 09/04/24 Range/Units 12:20 WBC (3.8-10.6) k/uL RBC (3.80-5.40) m/uL Hgb (11.4-16.0) gm/dL Hct (34.0-46.0) % MCV (80.0-100.0) fL RDW (11.5-15.5) % Plt Count (150-450) k/uL Sodium (137-145) mmol/L Potassium (3.5-5.1) mmol/L BUN (7-17) mg/dL Glucose (74-99) mg/dL POC Glucose (mg/dL) 124 H (70-110) mg/dL Calcium (8.4-10.2) mg/dL Microbiology - Last 24 Hours (Table) 09/01/24 12:40 Stool Culture - Final Stool Assessment and Plan (1) Dehydration Current Visit: Yes Status: Acute Priority: High Code(s): E86.0 - DEHYDRATION SNOMED Code(s): 90059135 (2) Diarrhea Current Visit: Yes Status: Acute Priority: High Code(s): R19.7 - DIARRHEA, UNSPECIFIED SNOMED Code(s): 71973473 (3) Hypokalemia Current Visit: Yes Status: Acute Priority: Medium Code(s): E87.6 - HYPOKALEMIA SNOMED Code(s): 79194927 (4) UTI (urinary tract infection) Current Visit: Yes Status: Acute Priority: Medium Code(s): N39.0 - URINARY TRACT INFECTION, SITE NOT SPECIFIED SNOMED Code(s): 99597656 (5) Pancytopenia due to antineoplastic chemotherapy Current Visit: Yes Status: Acute Priority: High Code(s): D61.810 - ANTINEOPLASTIC CHEMOTHERAPY INDUCED PANCYTOPENIA; T45.1X5A - ADVERSE EFFECT OF ANTINEOPLASTIC AND IMMUNOSUP DRUGS, INIT SNOMED Code(s): 215296655758381 (6) Extensive stage primary small cell carcinoma of lung Current Visit: No Status: Chronic Priority: Medium Code(s): C34.90 - MALIGNANT NEOPLASM OF UNSP PART OF UNSP BRONCHUS OR LUNG SNOMED Code(s): 525462069709251 Plan: Diarrhea -C. difficile and stool culture negative -Continues Questran and imodium -Pt abd exam overall benign and reports hunger. Diet changed to full liquid, tolerating diet. -Previous pancolitis at last visit, no significant change in diarrhea. CTA AP ordered, compared, no reported change. Did review colonoscopy notes from [facility]. 6 3-5mm polyps seen, some hemorrhoids, no reports of colitis. Is diarrhea from drug vs IO SE from when she was on immunotherapy in Jun vs disease spread into the mesentery of the abd causing colitis to be seen on imaging but not on co lonoscopy? -Pt has shown improvement in diarrhea on bowel rest and antidiarrheals, typically IO induced side effects would improve only after treatment with high dose steroids, so this seems less likely -Will advance to bland diet in the morning, if tolerating well, pt is cleared from hem/onc standpoint, and be discharged on questran/imodium Dehydration, hypokalemia -Secondary to diarrhea -Patient is on electrolyte replacement and fluids Pancytopenia secondary to antineoplastic chemotherapy -Likely drops in counts secondary to hemoconcentration from dehydration. Will cont to monitor labs closely -Labs daily, stable today -Transfuse for hemoglobin less than 7 or platelets less than 10,000 or if symptomatic Doctor attests: I performed a history and physical examination of this patient, developed impression and plan of care. Discussed with dictator. I agree with dictators note, documented as a scribe.
[2024-09-04 20:23] LABS: Glucose,Whole Blood 100 mg/dL (70-110)
[2024-09-05 07:09] LABS: Anisocytosis Slight; HCT 25.7 % (34.0-46.0); HGB 8.4 gm/dL (11.4-16.0); MCH 32.8 pg (25.0-35.0); MCHC 32.8 g/dL (31.0-37.0); Macrocytosis Slight; Mean Platelet Volume 10.6; RBC 2.57 m/uL (3.80-5.40); RDW 17.5 % (11.5-15.5); WBC 1.6 k/uL (3.8-10.6)
[2024-09-05 07:10] LABS: Glucose,Whole Blood 99 mg/dL (70-110)
[2024-09-05 07:22] LABS: Platelet Count 41 k/uL (150-450)
[2024-09-05 07:25] LABS: African American GFR (CKD) 68 (>60 ml/min/1.73 sqM); Anion Gap 2 mmol/L; Blood Urea Nitrogen 4 mg/dL (7-17); Calcium 7.7 mg/dL (8.4-10.2); Carbon Dioxide 25 mmol/L (22-30); Chloride 109 mmol/L (98-107); Glucose 94 mg/dL (74-99); Magnesium 1.3 mg/dL (1.6-2.3); Non-African American GFR(CKD) 59 (>60 ml/min/1.73 sqM); Potassium 3.3 mmol/L (3.5-5.1); Sodium 136 mmol/L (137-145)
[2024-09-05] MEDS ORDERED: Magnesium Replacement Protocol 1 EACH MISC MISCELLANE PRN (07:59)
[2024-09-05] MEDS: MAGNESIUM SULFATE-D5W PMX 1 GM in DEXTROSE/WATER 1 100ML.BAG IVPB SCH (08:24)
[2024-09-05] MEDS: POTASSIUM CHLORIDE ER 20 MEQ TAB.ER PO SCH ×2 (08:24→17:57)
[2024-09-05 12:57] LABS: Glucose,Whole Blood 183 mg/dL (70-110)
--- NOTE | 2024-09-05 13:04 | P.PN ---
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 In the ED she underwent extensive evaluation. BP 125/84, HR 85, T 98F, RR 16, 96% on RA. CBC, Coag panel, CMP significant for WBC 3.1, RBC 3.57, Plt 138, PT 12.7 INR 1.2, Na 133, K 1.9, glu 146, Ca 7, alk phos 163, alb 2.1. Mag 1.1. Lactic acid 2.8. UA + nitrite and LE. COVID, RSV, Flu neg. EKG sinus rhythm with RBBB, Q waves in V1 V2. CXR neg/ CT brain neg for acute pathology. Recent admission for meyers colitis requiring transfer to [facility], underwent C-scope which showed some polyps. She reports recovering fully from her colitis prior to undergoing chemotherapy. 09/01 Patient was seen and examined. Multiple episodes of diarrhea overnight, watery. K 2.1 last night. CMP significant for K 2.6, glu 112, Ca 6.9, alk phos 162, total protein 3.8, alb 2.1. C. diff negative. 09/02 Patient was seen and examined. Multiple episodes of diarrhea. CBC done today shows RBC 2.6, RBC 2.74, Hg 9, Hct 27.5, MCV 100.4, Plt 77, K 3.1. 09/03 Patient was seen and examined. > 3 liquid BM over the past 24H. K is 3.6. 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 UCx citrobacter freundii. 09/04 Patient was seen and examined. 6 liquid BM over the past 24H. Started on Imodium in addition to Questran. CBC and BMP significant for WBC 2.4, RBC 2.73, Hg 9, Hct 27.8, MCV 102, Plt 52, Na 132, BUN 6, glu 106, Ca 7.7. Echo shows EF 45-50% with mild LVH, MR/TR. 09/05 Patient was seen and examined. Improved diarrhea. Continued on Imodium and Questran. She would like to try a regular diet. CBC and BMP significant for WBC 1.6, RBC 2.57, Hg 8.4, Hct 25.7, MCV 100, Plt 41, Na 136, K 3.3, Cl 109, BUN 4, glu 183, Ca 7.7. Mag 1.3. General: non toxic, no distress, appears at stated age Derm: warm, dry Head: atraumatic, normocephalic, symmetric Eyes: EOMI, no lid lag, anicteric sclera Mouth: no lip lesion, mucus membranes moist Cardiovascular: S1S2 reg, no murmur Lungs: CTA bilateral, no rhonchi, no rales , no accessory muscle use Ext: no gross muscle atrophy, no edema, no contractures Neuro: no focal neuro deficits Psych: Alert, oriented, appropriate affect Based on my assessment of this patient, this patient meets a high complexity level of care. Severe metabolic derangements due to intractable N/V and diarrhea: CT with meyers colitis similar to previous admission. C. diff negative. Zofran 4 mg IV TID PRN. Questra 4g PO BID. Imodium 1 g PO QID scheduled. Stool Cx neg. HypoK and HypoMg: KCl 40 meq PO x 1. Mag sulfate 4g IV x 1. Volume overload with pleural effusions: Status post Lasix 40 mg IV x 1. Echo shows EF 45-50% with mild LVH, MR/TR. Pancytopenia: Acute drop but no active signs of bleeding. Stable. Oncology on board. UTI: UCx citrobacter freundii. Asymptomatic. DC Rocephin. Buttocks wound: Present on admission. Consult Wound care. HypoCa: Corrected is 8.5. 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 De Jesus. A-fib on Eliquis: Rate controlled. Not on AC due to previous GI bleed. Diabetes: ISS. Accuchecks ACHS. Hypoglycemic precautions. COPD not in acute exacerbation Resolved: Lactic acidosis. HypoNa. Patient with improved diarrhea. Start bland diet. K and Mag being replaced. Plans for discharge tomorrow if she continues to improve and able to tolerate diet. CODE STATUS: NO CODE DVT Prophylaxis: Heparin SQ GI Prophylaxis: Protonix IV Designated medical POA if patient is not able to make medical decisions for themselves: I have reviewed the following sap business intelligence consultant notes: I have reviewed the results of the following tests: CBC. BMP. I have ordered the following tests: I have discussed the care of this patient with the following independent historian: Family. I have independently interpreted the following test below: I have discussed the management of this patient with the following physician: Objective - Vital Signs Vital signs: Vital Signs Temp 98.4 F 09/05/24 07:30 Pulse 67 09/05/24 08:00 Resp 14 09/05/24 08:00 BP 130/63 09/05/24 07:30 Pulse Ox 96 09/05/24 07:30 FiO2 Intake & Output 09/04/24 09/05/24 09/05/24 18:59 06:59 18:59 Intake Total 0 590 Balance 0 590 Weight 73.482 kg Intake: Oral 0 590 Other: Voiding Method Diaper Diaper # Voids 2 # Bowel Movements 2 - Labs CBC & Chem 7: 09/05/24 06:55 09/05/24 06:55 Labs: Abnormal Lab Results - Last 24 Hours (Table) 09/05/24 09/05/24 Range/Units 06:55 06:55 WBC 1.6 L (3.8-10.6) k/uL RBC 2.57 L (3.80-5.40) m/uL Hgb 8.4 L (11.4-16.0) gm/dL Hct 25.7 L (34.0-46.0) % RDW 17.5 H (11.5-15.5) % Plt Count 41 L (150-450) k/uL Sodium 136 L (137-145) mmol/L Potassium 3.3 L (3.5-5.1) mmol/L Chloride 109 H (98-107) mmol/L BUN 4 L (7-17) mg/dL Calcium 7.7 L (8.4-10.2) mg/dL Magnesium 1.3 L (1.6-2.3) mg/dL Microbiology - Last 24 Hours (Table) 09/01/24 12:40 Stool Culture - Final Stool
--- NOTE | 2024-09-05 13:58 | P.PN ---
Subjective Progress Note Date: 09/05/24 Principal diagnosis: Metastatic small cell lung cancer -Afebrile, no acute events overnight -Notes having persistent loose watery diarrhea not significantly improved on Imodium and Questran -She denies any abdominal pain, nausea, vomiting, or dyspnea Objective - Vital Signs Vital signs: Vital Signs Temp 98.4 F 09/05/24 07:30 Pulse 67 09/05/24 08:00 Resp 14 09/05/24 08:00 BP 130/63 09/05/24 07:30 Pulse Ox 96 09/05/24 07:30 FiO2 Intake & Output 09/04/24 09/05/24 09/05/24 18:59 06:59 18:59 Intake Total 0 590 Balance 0 590 Weight 73.482 kg Intake: Oral 0 590 Other: Voiding Method Diaper Diaper # Voids 2 # Bowel Movements 2 - Constitutional Constitutional Comment(s): Fatigued appearing General appearance: Present: cooperative, no acute distress - EENT Eyes: Present: EOMI - Respiratory Details: Nonlabored breathing - Cardiovascular Details: Warm and well-perfused - Gastrointestinal General gastrointestinal: Present: soft. Absent: distended - Neurologic Neurologic: Present: CNII-XII intact. Absent: focal deficits - Psychiatric Psychiatric: Present: appropriate affect, intact judgment & insight - Labs CBC & Chem 7: 09/05/24 06:55 09/05/24 06:55 Labs: Abnormal Lab Results - Last 24 Hours (Table) 09/05/24 09/05/24 09/05/24 Range/Units 06:55 06:55 12:55 WBC 1.6 L (3.8-10.6) k/uL RBC 2.57 L (3.80-5.40) m/uL Hgb 8.4 L (11.4-16.0) gm/dL Hct 25.7 L (34.0-46.0) % RDW 17.5 H (11.5-15.5) % Plt Count 41 L (150-450) k/uL Sodium 136 L (137-145) mmol/L Potassium 3.3 L (3.5-5.1) mmol/L Chloride 109 H (98-107) mmol/L BUN 4 L (7-17) mg/dL POC Glucose (mg/dL) 183 H (70-110) mg/dL Calcium 7.7 L (8.4-10.2) mg/dL Magnesium 1.3 L (1.6-2.3) mg/dL Microbiology - Last 24 Hours (Table) 09/01/24 12:40 Stool Culture - Final Stool Assessment and Plan Plan: Diarrhea -C. difficile and stool culture negative -Pt abd exam overall benign and reports hunger. Diet changed to full liquid, tolerating diet. -Previous pancolitis at last visit, no significant change in diarrhea. CTA AP ordered, compared, no reported change. Did review colonoscopy notes from [facility]. 6 3-5mm polyps seen, some hemorrhoids, no reports of colitis. Is diarrhea from drug vs IO SE from when she was on immunotherapy in Jun vs disease spread into the mesentery of the abd causing colitis to be seen on imaging but not on colonoscopy? -More likely, she has colitis secondary to lurbinectedin -Clinically, she continues to have watery diarrhea despite scheduled Imodium 2 mg 4 times daily and Questran twice daily -We will add Lomotil 2 tabs every 6 hours as needed for diarrhea Dehydration, hypokalemia -Secondary to diarrhea -Patient is on electrolyte replacement and fluids Pancytopenia secondary to antineoplastic chemotherapy -Likely drops in counts secondary to hemoconcentration from dehydration and lurbinectedin chemotherapy with cycle 3 received on 08/27/2024 -No transfusions required today -Transfuse for hemoglobin less than 7 or platelets less than 10,000 or if symptomatic Jose Angel De Jesus MD
[2024-09-05 17:41] LABS: Glucose,Whole Blood 188 mg/dL (70-110)
[2024-09-05] MEDS: DIPHENOX-ATROP 2.5-0.025 MG 1 EACH TAB PO PRN (17:57)
[2024-09-05 20:23] LABS: Glucose,Whole Blood 417 mg/dL (70-110)
[2024-09-06 06:45] LABS: Magnesium 2.1 mg/dL (1.6-2.3); Potassium 3.5 mmol/L (3.5-5.1)
[2024-09-06] MEDS ORDERED: Potassium Replacement Protocol 1 EACH MISC MISCELLANE PRN (07:31)
[2024-09-06 07:46] VITALS: RESP 17
[2024-09-06] MEDS: POTASSIUM CHLORIDE 20 MEQ in WATER FOR INJECTION 1 100ML.BAG IVPB SCH (08:04)
[2024-09-06 08:08] LABS: Glucose,Whole Blood 107 mg/dL (70-110)
--- NOTE | 2024-09-06 10:57 | P.DS ---
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 In the ED she underwent extensive evaluation. BP 125/84, HR 85, T 98F, RR 16, 96% on RA. CBC, Coag panel, CMP significant for WBC 3.1, RBC 3.57, Plt 138, PT 12.7 INR 1.2, Na 133, K 1.9, glu 146, Ca 7, alk phos 163, alb 2.1. Mag 1.1. Lactic acid 2.8. UA + nitrite and LE. COVID, RSV, Flu neg. EKG sinus rhythm with RBBB, Q waves in V1 V2. CXR neg/ CT brain neg for acute pathology. Recent admission for meyers colitis requiring transfer to [facility], underwent C-scope which showed some polyps. She reports recovering fully from her colitis prior to undergoing chemotherapy. Oncology consulted, stool Cx negative, C. diff negative. Started on Questran, Imodium and Lomotil. 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 UCx citrobacter freundii but patient asymptomatic, Rocephin discontinued. Echo showed EF 45-50% with mild LVH, MR/TR. She was given a dose of Lasix IV. 09/06 Patient was seen and examined. Improved diarrhea. Continued on Imodium and Questran. Added Lomotil. Tolerating regular diet. K 3.5 and Mg 2.1 this morning. Daughter reports slight confusion which could be related to delirium and Dilaudid use. Family believed she will do better at home. Discharge Plans: Prescription for Lomotil, Questran sent to pharmacy. 7 days of KCl 20 meq PO QD. Follow up with PCP within 1-2 days. Follow up with Dr. De Jesus within 1 week. General: non toxic, no distress, appears at stated age Derm: warm, dry Head: atraumatic, normocephalic, symmetric Eyes: EOMI, no lid lag, anicteric sclera Mouth: no lip lesion, mucus membranes moist Cardiovascular: S1S2 reg, no murmur Lungs: CTA bilateral, no rhonchi, no rales , no accessory muscle use Ext: no gross muscle atrophy, no edema, no contractures Neuro: no focal neuro deficits Psych: Alert, oriented, appropriate affect Discharge Diagnosis: Severe metabolic derangements due to intractable N/V and diarrhea: CT with meyers colitis similar to previous admission. C. diff negative. Zofran 4 mg IV TID PRN. Questra 4g PO BID. Imodium 1 g PO QID scheduled. Lomotil 2 tab PO Q6H PRN. Stool Cx neg. HypoK and HypoMg: KCl 20 meq IV x 1. Volume overload with pleural effusions: Status post Lasix 40 mg IV x 1. Echo shows EF 45-50% with mild LVH, MR/TR. Patient is on room air. Pancytopenia: Acute drop but no active signs of bleeding. Likely due to hemodilution. Stable. Oncology on board. UTI: UCx citrobacter freundii. Asymptomatic. DC Rocephin. Buttocks wound: Present on admission. Wound care on board. HypoCa: Corrected is 8.5. 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 De Jesus following. A-fib on Eliquis: Rate controlled. Not on AC due to previous GI bleed. Diabetes: ISS. Accuchecks ACHS. Hypoglycemic precautions. COPD not in acute exacerbation Resolved: Lactic acidosis. HypoNa. Patient Condition at Discharge: Stable Plan - Discharge Summary Discharge Rx Participant: Yes New Discharge Prescriptions: New Diphenox-Atrop 2.5-0.025 mg [Lomotil] 2 each PO Q6HR PRN #56 tab PRN Reason: Diarrhea Potassium Chloride ER [K-Dur 20] 20 meq PO DAILY #7 tab Cholestyramine (with Sugar) [Questran Packet] 4 gm PO BID@1000,1800 #14 packet Continue Esomeprazole Magnesium [NexIUM] 40 mg PO DAILY@1100 ALPRAZolam [Xanax] 0.125 - 0.25 mg PO BID PRN PRN Reason: Anxiety HYDROcodone/APAP 5-325MG [[place] 5-325] 1 tab PO Q6H PRN PRN Reason: Pain Anastrozole 1 mg PO DAILY@1100 Escitalopram [Lexapro] 20 mg PO HS@1800 Insulin Degludec [Tresiba Flextouch U-100 Pen] 5 - 20 units SQ HS PRN PRN Reason: Blood Sugar - High Prochlorperazine [Compazine] 10 mg PO Q6H PRN #30 tab PRN Reason: Nausea Furosemide [Lasix] 20 mg PO DAILY@1100 Loperamide [Imodium] 2 - 4 mg PO QID PRN PRN Reason: Diarrhea Discharge Medication List Anastrozole 1 mg PO DAILY@1100 11/20/23 [History] Escitalopram [Lexapro] 20 mg PO HS@1800 12/23/23 [History] Esomeprazole Magnesium [NexIUM] 40 mg PO DAILY@1100 12/23/23 [History] Insulin Degludec [Tresiba Flextouch U-100 Pen] 5 - 20 units SQ HS PRN 05/05/24 [History] Prochlorperazine [Compazine] 10 mg PO Q6H PRN #30 tab 05/06/24 [Rx] ALPRAZolam [Xanax] 0.125 - 0.25 mg PO BID PRN 07/30/24 [History] Furosemide [Lasix] 20 mg PO DAILY@1100 07/30/24 [History] HYDROcodone/APAP 5-325MG [[place]den 5-325] 1 tab PO Q6H PRN 08/31/24 [History] Loperamide [Imodium] 2 - 4 mg PO QID PRN 08/31/24 [History] Cholestyramine (with Sugar) [Questran Packet] 4 gm PO BID@1000,1800 #14 packet 09/06/24 [Rx] Diphenox-Atrop 2.5-0.025 mg [Lomotil] 2 each PO Q6HR PRN #56 tab 09/06/24 [Rx] Potassium Chloride ER [K-Dur 20] 20 meq PO DAILY #7 tab 09/06/24 [Rx] Follow up Appointment(s)/Referral(s): Jose Angel De Jesus MD [STAFF PHYSICIAN] - 1 Week [facility] [NON-STAFF] - 1 Week Jaden Barajas DO [Primary Care Provider] - 1-2 days Activity/Diet/Wound Care/Special Instructions: Diet: BRAT diet Discharge Disposition: HOME SELF-CARE
--- NOTE | 2024-09-06 13:11 | P.PN ---
Subjective Progress Note Date: 09/06/24 Principal diagnosis: Metastatic small cell lung cancer -Afebrile, no acute events overnight -Used Lomotil once over the past 24 hours -Stool has noted to be more firm in consistency, but is still loose with no new signs or symptoms Objective - Vital Signs Vital signs: Vital Signs Temp 97.6 F 09/06/24 07:44 Pulse 75 09/06/24 08:40 Resp 17 09/06/24 08:40 BP 114/70 09/06/24 07:44 Pulse Ox 98 09/06/24 07:44 FiO2 Intake & Output 09/05/24 09/06/24 09/06/24 18:59 06:59 18:59 Other: Voiding Method Diaper Diaper Diaper # Voids 1 # Bowel Movements 1 - Constitutional Constitutional Comment(s): Less fatigued appearing today General appearance: Present: cooperative, no acute distress - EENT Eyes: Present: EOMI - Respiratory Details: Nonlabored breathing - Cardiovascular Details: Warm and well-perfused - Gastrointestinal General gastrointestinal: Present: normal bowel sounds, soft. Absent: distended, tenderness - Integumentary Integumentary: Present: pale. Absent: rash - Neurologic Neurologic: Present: CNII-XII intact. Absent: focal deficits - Labs CBC & Chem 7: 09/05/24 06:55 09/06/24 06:07 Labs: Abnormal Lab Results - Last 24 Hours (Table) 09/05/24 09/05/24 Range/Units 17:39 20:22 POC Glucose (mg/dL) 188 H 417 H (70-110) mg/dL Assessment and Plan (1) Dehydration Current Visit: Yes Status: Acute Priority: High Code(s): E86.0 - DEHYDRATION SNOMED Code(s): 67498365 (2) Diarrhea Current Visit: Yes Status: Acute Priority: High Code(s): R19.7 - DIARRHEA, UNSPECIFIED SNOMED Code(s): 88198609 (3) Hypokalemia Current Visit: Yes Status: Acute Priority: Medium Code(s): E87.6 - HYPOKALEMIA SNOMED Code(s): 17220341 (4) Hypomagnesemia Current Visit: Yes Status: Acute Priority: High Code(s): E83.42 - HYPOMAGNESEMIA SNOMED Code(s): 792270052 (5) Extensive stage primary small cell carcinoma of lung Current Visit: No Status: Chronic Priority: Medium Code(s): C34.90 - MALIGNANT NEOPLASM OF UNSP PART OF UNSP BRONCHUS OR LUNG SNOMED Code(s): 338298394968041 Plan: Diarrhea -C. difficile and stool culture negative -Pt abd exam overall benign and reports hunger. Diet changed to full liquid, tolerating diet. -Previous pancolitis at last visit, no significant change in diarrhea. CTA AP ordered, compared, no reported change. Did review colonoscopy notes from [facility]. 6 3-5mm polyps seen, some hemorrhoids, no reports of colitis. Is diarrhea from drug vs IO SE from when she was on immunotherapy in Jun vs disease spread into the mesentery of the abd causing colitis to be seen on imaging but not on colonoscopy? -More likely, she has colitis secondary to lurbinectedin -Lomotil was added on 09/05/2024 in addition to scheduled Imodium 2 mg 4 times daily and Questran twice daily -Clinically, stool is less loose and is able to tolerate soft foods and liquids without any complications -She would like to go home today -From an oncology perspective, she can be discharged with continued use of Imodium and Questran in the presence of loose stool -Prescription for Lomotil 2 tabs every 6 hours as needed (30 tabs, no refills) was sent to her pharmacy ([facility] on in [place]) -We discussed continuing to use Imodium and Questran as long as she was having loose stool along with eating foods with softer consistency and liquids over the next 2 days Pancytopenia secondary to antineoplastic chemotherapy -Likely drops in counts secondary to hemoconcentration from dehydration and lurbinectedin chemotherapy with cycle 3 received on 08/27/2024 -We will repeat lab draw in clinic on 09/14/2024 when she is scheduled for [employer] visit Jose Angel De Jesus MD
[2024-09-06 13:23] VITALS: BP 120/71; PULSE 83; TEMP 97.5
== END 2024-09-06 14:44 | disposition home or self-care (01) | DRG 393 ==
LOC: EC 07:39 → 5NMEDONC 10:06
PROVIDERS: ADMIT Family Medicine; ATTEND Family Medicine
DX: K52.1 Toxic gastroenteritis and colitis (principal); D61.810 Antineoplastic chemotherapy induced pancytopenia; C34.90 Malignant neoplasm of unspecified part of unspecified bronchus or lung; E87.1 Hypo-osmolality and hyponatremia; E87.20 Acidosis, unspecified; N39.0 Urinary tract infection, site not specified; C79.31 Secondary malignant neoplasm of brain; C78.7 Secondary malignant neoplasm of liver and intrahepatic bile duct; L89.312 Pressure ulcer of right buttock, stage 2; L89.322 Pressure ulcer of left buttock, stage 2; E83.51 Hypocalcemia; I11.0 Hypertensive heart disease with heart failure; I50.9 Heart failure, unspecified; I71.43 Infrarenal abdominal aortic aneurysm, without rupture; E11.622 Type 2 diabetes mellitus with other skin ulcer; E83.42 Hypomagnesemia; E87.6 Hypokalemia; I48.91 Unspecified atrial fibrillation; J44.9 Chronic obstructive pulmonary disease, unspecified; T45.1X5A Adverse effect of antineoplastic and immunosuppressive drugs, initial encounter; B96.89 Other specified bacterial agents as the cause of diseases classified elsewhere; D53.9 Nutritional anemia, unspecified; E78.5 Hyperlipidemia, unspecified; E86.0 Dehydration; F17.200 Nicotine dependence, unspecified, uncomplicated; F41.0 Panic disorder [episodic paroxysmal anxiety]; I45.10 Unspecified right bundle-branch block; M81.0 Age-related osteoporosis without current pathological fracture; K21.9 Gastro-esophageal reflux disease without esophagitis; Z92.21 Personal history of antineoplastic chemotherapy; Z79.01 Long term (current) use of anticoagulants; Z79.4 Long term (current) use of insulin; Z79.811 Long term (current) use of aromatase inhibitors; Z79.899 Other long term (current) drug therapy; Z91.81 History of falling; Z99.3 Dependence on wheelchair; Z88.5 Allergy status to narcotic agent; Z88.8 Allergy status to other drugs, medicaments and biological substances; Z85.3 Personal history of malignant neoplasm of breast; Z80.49 Family history of malignant neoplasm of other genital organs; Z80.7 Family history of other malignant neoplasms of lymphoid, hematopoietic and related tissues
CPT/HCPCS: 36415; 70450; 71046; 74174; 80048; 80053; 81001; 83605; 83735; 84132; 85025; 85027; 85610; 85730; 87045; 87046; 87077; 87086; 87186; 87324; 87636; 93005; 93306; 93970; 94760; 96361; 96365; 96366; 96367; 96375; 99285

== ENCOUNTER 2024-09-22 19:57 | Observation (INO) | payer MEDICARE, OTHER ==
--- NOTE | 2024-09-22 20:34 | ED ---
General Adult HPI - General Source: patient, family, RN notes reviewed <Radha Marks - Last Filed: 09/22/24 20:33> - General Source: patient, family, RN notes reviewed, old records reviewed Mode of arrival: ambulatory Limitations: no limitations <Jaden Fay - Last Filed: 09/23/24 01:55> <Cl Feliz - Last Filed: 09/23/24 05:39> - General Stated complaint: Hypokalemia Time Seen by Provider: 09/22/24 20:10 - History of Present Illness Initial comments: Quick [id number] female presenting to the emergency department for complaint of hypokalemia. Patient outpatient labs ordered today at 1400 and was reported by Dr. Lyon, to report to emergency department for critical value. Patient is asymptomatic. Patient states that she has been in the hospital frequently over the past month for hypokalemia. (KendrickRadha) Is a 74-year-old female presents emergency department with chief complaint of hypokalemia. Patient states that she had labs done outpatient by her oncologist Dr. Bauman who called her and told her, the emergency department because it was significantly abnormal. Patient has no complaints otherwise. She states she is scheduled for CT tomorrow for her brain she also has metastasis. Patient has had frequent hospitalizations for hypokalemia. (Jaden Fay) - Related Data Home Medications Medication Instructions Recorded Confirmed Anastrozole 1 mg PO DAILY@1100 11/20/23 08/31/24 Escitalopram [Lexapro] 20 mg PO HS@1800 12/23/23 08/31/24 Esomeprazole Magnesium [NexIUM] 40 mg PO DAILY@1100 12/23/23 08/31/24 Insulin Degludec [Tresiba 5 - 20 units SQ HS PRN 05/05/24 08/31/24 Flextouch U-100 Pen] ALPRAZolam [Xanax] 0.125 - 0.25 mg PO BID PRN 07/30/24 08/31/24 Furosemide [Lasix] 20 mg PO DAILY@1100 07/30/24 08/31/24 HYDROcodone/APAP 5-325MG [[place] 1 tab PO Q6H PRN 08/31/24 08/31/24 5-325] Loperamide [Imodium] 2 - 4 mg PO QID PRN 08/31/24 08/31/24 Previous Rx's Medication Instructions Recorded Prochlorperazine [Compazine] 10 mg PO Q6H PRN #30 tab 05/06/24 Cholestyramine (with Sugar) 4 gm PO BID@1000,1800 #14 packet 09/06/24 [Questran Packet] Diphenox-Atrop 2.5-0.025 mg 2 each PO Q6HR PRN #56 tab 09/06/24 [Lomotil] Potassium Chloride ER [K-Dur 20] 20 meq PO DAILY #7 tab 09/06/24 Allergies Allergy/AdvReac Type Severity Reaction Status Date / Time dog dander Allergy Runny nose Verified 09/22/24 20:42 horse dander Allergy Runny nose Verified 09/22/24 20:42 mold Allergy Runny nose Verified 09/22/24 20:42 codeine AdvReac Chest Pain Verified 09/22/24 20:42 empagliflozin AdvReac severe UTI Verified 09/22/24 20:42 [From Jardiance] gabapentin AdvReac Confusion Verified 09/22/24 20:42 metformin AdvReac Diarrhea Verified 09/22/24 20:42 pioglitazone [From Actos] AdvReac denies Verified 09/22/24 20:42 allergy semaglutide [From Ozempic] AdvReac denies Verified 09/22/24 20:42 allergy sitagliptin [From Januvia] AdvReac severe UTI Verified 09/22/24 20:42 dogs,horses,mold Allergy Runny nose Uncoded 09/22/24 20:42 Review of Systems ROS Other: All systems not noted in ROS Statement are negative. <Radha Marks - Last Filed: 09/22/24 20:33> ROS Other: All systems not noted in ROS Statement are negative. <Jadne Fay - Last Filed: 09/23/24 01:55> ROS Other: All systems not noted in ROS Statement are negative. <Cl Feliz - Last Filed: 09/23/24 05:39> ROS Statement: Those systems with pertinent positive or pertinent negative responses have been documented in the HPI. 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 murmur. hx breast cancer- radiation complete 04/2023. current spot on lung NO LEFT ARM use. Mastectomy History of Any Multi-Drug Resistant Organisms: None Reported Past Surgical History: Appendectomy, Back Surgery, Cholecystectomy, Heart Catheterization, Orthopedic Surgery Additional Past Surgical History / Comment(s): Resection of an atrial m yxoma/open heart for removal of tumor on the heart 2007, arthroscopic bilateral knees, bilateral carotid endarterectomy, colonoscopies, cyst removed from left ovary, devyn cataracts, breast cancer 02/2023 Past Anesthesia/Blood Transfusion Reactions: No Reported Reaction Additional Past Anesthesia/Blood Transfusion Reaction / Comment(s): Pt uncertain if she has ever received blood. Pt has claustrophobia. Past Psychological History: Anxiety, Panic Disorder Smoking Status: Current every day smoker Past Alcohol Use History: None Reported Past Drug Use History: None Reported - Past Family History Mother Family Medical History: Diabetes Mellitus, Hyperlipidemia, Hypertension Sister(s) Family Medical History: Cancer Additional Family Medical History / Comment(s): Cervical cancer. She is . <Radha Marks - Last Filed: 09/22/24 20:33> General Exam <Radha Marks - Last Filed: 09/22/24 20:33> Limitations: no limitations General appearance: alert, in no apparent distress Head exam: Present: atraumatic, normocephalic, normal inspection Eye exam: Present: normal appearance, PERRL, EOMI. Absent: scleral icterus, conjunctival injection, periorbital swelling ENT exam: Present: normal exam, normal oropharynx, mucous membranes moist Neck exam: Present: normal inspection, full ROM. Absent: tenderness, meningismus, lymphadenopathy Respiratory exam: Present: normal lung sounds bilaterally. Absent: respiratory distress, wheezes, rales, rhonchi, stridor Cardiovascular Exam: Present: regular rate, normal rhythm, normal heart sounds. Absent: systolic murmur, diastolic murmur, rubs, gallop, clicks GI/Abdominal exam: Present: soft, normal bowel sounds. Absent: distended, tenderness, guarding, rebound, rigid <Jaden Fay - Last Filed: 09/23/24 01:55> - General Exam Comments Initial Comments: Visual Physical Exam Vital signs reviewed General: Well-appearing, nontoxic, no acute distress. Head: Normocephalic, atraumatic Eyes: PERRLA, EOMI ENT: Airway patent Chest: Nonlabored breathing Skin: No visual rash, normal skin tone Neuro: Alert and oriented 3 Musculoskeletal: No gross abnormalities (Radha Marks) Course Vital Signs 09/22/24 09/23/24 09/23/24 20:42 03:22 04:27 Temperature 98.6 F 97.6 F 97.6 F Pulse Rate 78 81 80 Respiratory 18 18 18 Rate Blood Pressure 90/61 149/79 125/76 O2 Sat by Pulse 100 100 99 Oximetry EKG Findings - EKG Comments: EKG Findings:: EKG performed at 20: 52 sinus rhythm rate of 80 OR 151 QRS 154 QT/QTc 451/487 - EKG Results: EKG: interpreted by ERMD <Jaden Fay - Last Filed: 09/23/24 01:55> Medical Decision Making <Radha Marks - Last Filed: 09/22/24 20:33> - Lab Data Result diagrams: 09/23/24 00:41 09/23/24 00:41 <Jaden Fay - Last Filed: 09/23/24 01:55> - Lab Data Result diagrams: 09/23/24 00:41 09/23/24 00:41 <Cl Feliz - Last Filed: 09/23/24 05:39> - Medical Decision Making I completed the quick note portion of this chart signed Radha Marks PA-C (Radha Marks) Was pt. sent in by a medical professional or institution (VLADIMIR Boone, COO, urgent care, hospital, or snf...) When possible be specific @ -Oncologist Did you speak to anyone other than the patient for history (EMS, parent, family, police, friend...)? What history was obtained from this source @ -No Did you review nursing and triage notes (agree or disagree)? Why? @ -I reviewed and agree with nursing and triage notes Were old charts reviewed (outside hosp., previous admission, EMS record, old EKG, old radiological studies, urgent care reports/EKG's, snf records)? Report findings @ -No old charts were reviewed Differential Diagnosis (chest pain, altered mental status, abdominal pain women, abdominal pain men, vaginal bleeding, weakness, fever, dyspnea, syncope, headache, dizziness, GI bleed, back pain, seizure, CVA, palpatations, mental health, musculoskeletal)? @ -Hypomagnesemia, hypokalemia, cancer EKG interpreted by me (3pts min.). @ -As above X-rays interpreted by me (1pt min.). @ -None done CT interpreted by me (1pt min.). @ -None done U/S interpreted by me (1pt. min.). @ -None done What testing was considered but not performed or refused? (CT, X-rays, U/S, labs)? Why? @ -None What meds were considered but not given or refused? Why? @ -None Did you discuss the management of the patient with other professionals (professionals i.e. , PA, COO, lab, RT, psych nurse, social media manager, system admin, teacher, records officer, caseworker intake)? Give summary @ -Dr. Melissa for admission Was smoking cessation discussed for >3mins.? @ -No Was critical care preformed (if so, how long)? @ -No Were there social determinants of health that impacted care today? How? (Homelessness, low income, unemployed, alcoholism, drug addiction, transportation, low edu. Level, literacy, decrease access to med. care, intermediate, rehab)? @ -No Was there de-escalation of care discussed even if they declined (Discuss DNR or withdrawal of care, Hospice)? DNR status @ -No What co-morbidities impacted this encounter? (DM, HTN, Smoking, COPD, CAD, Cancer, CVA, ARF, Chemo, Hep., AIDS, mental health diagnosis, sleep apnea, morbid obesity)? @ -None Was patient admitted / discharged? Hospital course, mention meds given and route, prescriptions, significant lab abnormalities, going to OR and other pertinent info. @ -Admitted patient presented for hypokalemia. This has been a recurrent issue. IV and oral replacement was ordered. Patient will have repeat laboratory joshua dies Undiagnosed new problem with uncertain prognosis? @ -No Drug Therapy requiring intensive monitoring for toxicity (Heparin, Nitro, Insulin, Cardizem)? @ -No Were any procedures done? @ -No Diagnosis/symptom? @ -[Hypokalemia Acute, or Chronic, or Acute on Chronic? @ -Acute Uncomplicated (without systemic symptoms) or Complicated (systemic symptoms)? @ -complicated Side effects of treatment? @ -No Exacerbation, Progression, or Severe Exacerbation? @ -No Poses a threat to life or bodily function? How? (Chest pain, [place], [place], pneumonia, PE, COPD, DKA, ARF, appy, cholecystitis, CVA, Diverticulitis, Homicidal, Suicidal, threat to staff... and all critical care pts) @ -No (Jaden Fay) I was notified by hospitalist that patient had an incidental abnormality seen on CT. She has a history of cerebellar mass that was treated with radiation oncology. There was what appears to be a new mass on her right frontal lobe with vasogenic edema. There was concern perhaps that should this worsen that patient would benefit from transfer to facility with neurosurgical capabilities. Did discuss case with family who was leaning more towards hospice route. I did speak with Dr. Lyon regarding this. Dr. Lyon is very familiar with the patient states that it is reasonable for patient to be admitted here in our facility with arrangements for urgent radiation oncology. States that as long as patient neurologically intact with no midline shift that they will evaluate the patient and make further recommendations. (Cl Feliz) - Lab Data Lab Results 09/23/24 09/23/24 Range/Units 00:41 00:41 WBC 4.9 (3.8-10.6) k/uL RBC 2.48 L (3.80-5.40) m/uL Hgb 8.3 L (11.4-16.0) gm/dL Hct 26.1 L (34.0-46.0) % MCV 105.3 H D (80.0-100.0) fL MCH 33.5 (25.0-35.0) pg MCHC 31.8 (31.0-37.0) g/dL RDW 19.3 H (11.5-15.5) % Plt Count 143 L D (150-450) k/uL MPV 8.1 Neutrophils % 62 % Lymphocytes % 23 % Monocytes % 10 % Eosinophils % 2 % Basophils % 0 % Neutrophils # 3.1 (1.3-7.7) k/uL Lymphocytes # 1.1 (1.0-4.8) k/uL Monocytes # 0.5 (0-1.0) k/uL Eosinophils # 0.1 (0-0.7) k/uL Basophils # 0.0 (0-0.2) k/uL Hypochromasia Moderate Anisocytosis Slight Macrocytosis Marked A Sodium 134 L (137-145) mmol/L Potassium 2.7 L* (3.5-5.1) mmol/L Chloride 105 (98-107) mmol/L Carbon Dioxide 24 (22-30) mmol/L Anion Gap 5 mmol/L BUN <2 L (7-17) mg/dL Creatinine 0.95 (0.52-1.04) mg/dL Est GFR (CKD-EPI)AfAm 70 (>60 ml/min/1.73 sqM) Est GFR (CKD-EPI)NonAf 60 (>60 ml/min/1.73 sqM) Glucose 160 H (74-99) mg/dL Calcium 8.1 L (8.4-10.2) mg/dL Magnesium 2.0 (1.6-2.3) mg/dL Total Bilirubin 0.4 (0.2-1.3) mg/dL AST 17 (14-36) U/L ALT 11 (4-34) U/L Alkaline Phosphatase 227 H (38-126) U/L Total Protein 4.2 L (6.3-8.2) g/dL Albumin 1.9 L (3.5-5.0) g/dL Disposition <Radha Marks - Last Filed: 09/22/24 20:33> Time of Disposition: 01:58 <Jaden Fay - Last Filed: 09/23/24 01:55> <Cl Feliz - Last Filed: 09/23/24 05:39> Clinical Impression: Hypokalemia, Small cell lung cancer Disposition: ADMITTED IP TO THIS [facility] Condition: Fair
[2024-09-23 00:57] LABS: Anisocytosis Slight; Basophils % (A) 0 %; Eosinophils # (A) 0.1 k/uL (0-0.7); Eosinophils % (A) 2 %; HCT 26.1 % (34.0-46.0); HGB 8.3 gm/dL (11.4-16.0); Hypochromasia Moderate; Lymphocytes # (A) 1.1 k/uL (1.0-4.8); Lymphocytes % (A) 23 %; MCH 33.5 pg (25.0-35.0); MCHC 31.8 g/dL (31.0-37.0); Macrocytosis Marked; Mean Platelet Volume 8.1; Monocytes # (A) 0.5 k/uL (0-1.0); Monocytes % (A) 10 %; Neutrophils # (A) 3.1 k/uL (1.3-7.7); Neutrophils % (A) 62 %; RBC 2.48 m/uL (3.80-5.40); RDW 19.3 % (11.5-15.5); WBC 4.9 k/uL (3.8-10.6)
[2024-09-23 00:59] LABS: MCV 105.3 fL (80.0-100.0); Platelet Count 143 k/uL (150-450)
[2024-09-23 01:31] LABS: ALT 11 U/L (4-34); AST 17 U/L (14-36); African American GFR (CKD) 70 (>60 ml/min/1.73 sqM); Albumin 1.9 g/dL (3.5-5.0); Anion Gap 5 mmol/L; Blood Urea Nitrogen <2 mg/dL (7-17); Calcium 8.1 mg/dL (8.4-10.2); Carbon Dioxide 24 mmol/L (22-30); Chloride 105 mmol/L (98-107); Glucose 160 mg/dL (74-99); Non-African American GFR(CKD) 60 (>60 ml/min/1.73 sqM); Sodium 134 mmol/L (137-145); Total Bilirubin 0.4 mg/dL (0.2-1.3); Total Protein 4.2 g/dL (6.3-8.2)
[2024-09-23 01:52] LABS: Alkaline Phosphatase 227 U/L (38-126)
[2024-09-23] MEDS ORDERED: NALOXONE 0.4 MG/ML 1 ML VIAL IV PRN (01:58)
[2024-09-23] MEDS ORDERED: ONDANSETRON 4 MG/2 ML VIAL IVP PRN (01:58)
[2024-09-23] MEDS: POTASSIUM CHLORIDE ER 20 MEQ TAB.ER PO STA (02:18)
--- NOTE | 2024-09-23 03:00 | CT ---
EXAMINATION TYPE: CT brain wo/w con DATE OF EXAM: 09/23/2024 COMPARISON: Prior CT August 31 2024 HISTORY: HYPOKALEMIA ABNORMAL LABS CT DLP: 2350.4 mGycm. Automated Exposure Control for Dose Reduction was Utilized. TECHNIQUE: CT scan of the head is performed without and with IV Contrast, patient injected with 80M L mL of Isovue 300. FINDINGS: Noncontrast images show no acute intracranial hemorrhage or midline shift. Mild to modera te ventricular and sulcal prominence is redemonstrated. Moderate low-attenuation in the deep and jeffrey ventricular white matter again seen. Bilateral aphakia redemonstrated. Postcontrast images show new enhancing 1.1 cm right frontal lobe lesion with surrounding hypodensity or vasogenic edema axial image 43. There is larger enhancing 1.9 cm right cerebellar mass axial image 16. There is more prominent heterogeneous enhancing 1.3 cm central cerebellar mass axial image 16. IMPRESSION: Worsening metastatic disease to the brain as detailed above. [facility], , 09/23/2024 2:58 AM
[2024-09-23] MEDS: POTASSIUM CHLORIDE 10 MEQ in WATER FOR INJECTION 1 100ML.BAG IVPB STA ×3 (03:16→05:34)
[2024-09-23] MEDS ORDERED: DIPHENOX-ATROP 2.5-0.025 MG 1 EACH TAB PO PRN (05:48)
[2024-09-23] MEDS ORDERED: HYDROcodone/APAP 5-325MG 1 EACH TAB PO PRN (05:54)
[2024-09-23] MEDS ORDERED: DEXTROSE 50% SYRINGE 50 ML IVP PRN ×2 (06:20)
[2024-09-23] MEDS ORDERED: IPRATROPIUM-ALBUTEROL 3 ML NEB INHALATION PRN (06:20)
--- NOTE | 2024-09-23 06:20 | P.HPIM ---
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 Status postchemotherapy and immunotherapy Patient with symptom from her oncologist office for critical hypokalemia she has been battling with hypokalemia and hypomagnesemia for over a month now due to chronic diarrhea with frequent presentations for the same problem. Daughter at bedside provides most of the history, she reports a decline in overall function over the past 1 to 2 weeks they have been trying to get a follow-up CT scan of the brain done but kept getting rescheduled. While in the ED today CT scan of the brain was done which showed 3 new metastatic lesions on the brain with vasogenic edema no report of falling or head injury no report of seizure-like activity no report of any new focal neurodeficits. Patient continues to have bilateral leg swelling with weakness in bilateral legs which has been chronic. Patient denies any headache changes in vision or hearing. Patient had recent episode, couple months ago, of GI bleeding while she was on Eliquis for A-fib she had to be transferred to [facility] for management She was diagnosed with metastatic lesion to the cerebellum earlier during the year which was treated with radiation, since then she continues to have surveillance brain CTs on regular basis review of systems Pertinent positives as noted in HPI. All other systems were reviewed and are negative on exam Constitutional: No acute distress, conversant, pleasant, Eyes: Anicteric sclerae, moist conjunctiva, Pupils equal round reactive to light ENMT: NC/AT Oropharynx clear, no erythema, or exudates Neck: Supple, no masses, or JVD No carotid bruits No thyromegaly Lungs: Good breath sounds bilaterally no wheezing or rhonchi Clear to percussion Normal respiratory effort, no accessory muscle use Cardiovascular: Heart regular in rate and rhythm, No murmurs, gallops, or rubs +3 bilateral peripheral leg edema Abdominal: Soft Nontender, no guarding, rebound or rigidity Abdomen moving with respiration Normoactive bowel sounds Extremities: No digital cyanosis Pedal pulses difficult to assess bilaterally due to pedal edema capillary refill immediate Radial pulses intact and symmetrical No calf tenderness Psychiatric: Alert and oriented to person, place Appropriate affect Neuro Muscles Strength 4/5 in bilateral upper extremities 3/5 bilateral lower extremities Sensation to light touch grossly present throughout Cranial nerves II-XII grossly intact Past Medical History Past Medical History: Atrial Flutter, Cancer, COPD, Diabetes Mellitus, GERD/Reflux, Hyperlipidemia, Hypertension, Osteoarthritis (OA), Vascular Disorder Additional Past Medical History / Comment(s): IDDM type II, osteoporosis, peripheral vascular disease with poor circulation involving lower extremities, urinary incontinence, previous history of epicardial wires in the heart from previous cardiac surgery, probably related to the myxoma resection. murmur. hx breast cancer- radiation complete 04/2023. current spot on lung NO LEFT ARM use. 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 Pt has claustrophobia. Past Psychological History: Anxiety, Panic Disorder Smoking Status: Current every day smoker Past Alcohol Use History: None Reported Past Drug Use History: None Reported - Past Family History Mother Family Medical History: Diabetes Mellitus, Hyperlipidemia, Hypertension Sister(s) Family Medical History: Cancer Additional Family Medical History / Comment(s): Cervical cancer. She is . Medications and Allergies Home Medications Medication Instructions Recorded Confirmed Type Anastrozole 1 mg PO DAILY@1100 11/20/23 08/31/24 History Escitalopram [Lexapro] 20 mg PO HS@1800 12/23/23 08/31/24 History Esomeprazole Magnesium [NexIUM] 40 mg PO DAILY@1100 12/23/23 08/31/24 History Insulin Degludec [Tresiba 5 - 20 units SQ HS PRN 05/05/24 08/31/24 History Flextouch U-100 Pen] Prochlorperazine [Compazine] 10 mg PO Q6H PRN #30 tab 05/06/24 08/31/24 Rx ALPRAZolam [Xanax] 0.125 - 0.25 mg PO BID PRN 07/30/24 08/31/24 History Furosemide [Lasix] 20 mg PO DAILY@1100 07/30/24 08/31/24 History HYDROcodone/APAP 5-325MG [[place] 1 tab PO Q6H PRN 08/31/24 08/31/24 History 5-325] Loperamide [Imodium] 2 - 4 mg PO QID PRN 08/31/24 08/31/24 History Cholestyramine (with Sugar) 4 gm PO BID@1000,1800 #14 packet 09/06/24 Rx [Questran Packet] Diphenox-Atrop 2.5-0.025 mg 2 each PO Q6HR PRN #56 tab 09/06/24 Rx [Lomotil] Potassium Chloride ER [K-Dur 20] 20 meq PO DAILY #7 tab 09/06/24 Rx Allergies Allergy/AdvReac Type Severity Reaction Status Date / Time dog dander Allergy Runny nose Verified 09/22/24 20:42 horse dander Allergy Runny nose Verified 09/22/24 20:42 mold Allergy Runny nose Verified 09/22/24 20:42 codeine AdvReac Chest Pain Verified 09/22/24 20:42 empagliflozin AdvReac severe UTI Verified 09/22/24 20:42 [From Jardiance] gabapentin AdvReac Confusion Verified 09/22/24 20:42 metformin AdvReac Diarrhea Verified 09/22/24 20:42 pioglitazone [From Actos] AdvReac denies Verified 09/22/24 20:42 allergy semaglutide [From Ozempic] AdvReac denies Verified 09/22/24 20:42 allergy sitagliptin [From Januvia] AdvReac severe UTI Verified 09/22/24 20:42 dogs,horses,mold Allergy Runny nose Uncoded 09/22/24 20:42 Physical Exam Vitals: Vital Signs Temp Pulse Resp BP Pulse Ox 09/23/24 04:27 97.6 F 80 18 125/76 99 09/23/24 03:22 97.6 F 81 18 149/79 100 09/22/24 20:42 98.6 F 78 18 90/61 100 Intake and Output 09/22/24 09/22/24 09/23/24 14:59 22:59 06:59 Other: Weight 73.028 kg Results CBC & Chem 7: 09/23/24 00:41 09/23/24 00:41 Labs: Abnormal Lab Results - Last 24 Hours (Table) 09/23/24 09/23/24 Range/Units 00:41 00:41 RBC 2.48 L (3.80-5.40) m/uL Hgb 8.3 L (11.4-16.0) gm/dL Hct 26.1 L (34.0-46.0) % MCV 105.3 H D (80.0-100.0) fL RDW 19.3 H (11.5-15.5) % Plt Count 143 L D (150-450) k/uL Macrocytosis Marked A Sodium 134 L (137-145) mmol/L Potassium 2.7 L* (3.5-5.1) mmol/L BUN <2 L (7-17) mg/dL Glucose 160 H (74-99) mg/dL Calcium 8.1 L (8.4-10.2) mg/dL Alkaline Phosphatase 227 H (38-126) U/L Total Protein 4.2 L (6.3-8.2) g/dL Albumin 1.9 L (3.5-5.0) g/dL Assessment and Plan Assessment: 74-year-old female with metastatic small lung cancer to the brain status post chemo, immunotherapy and radiation. Paroxysmal A-fib not on anticoagulation due to GI bleeding, chronic diarrhea and recurrent hypokalemia, upon routine follow- up outpatient with blood work she was found to have severe hypokalemia for which her oncologist sent her to the ER I discussed the case with ED doctor and accepted the admission for severe hypokalemia for IV replacement . However she had a routine CT scan of the brain scheduled for this morning part of her surveillance which resulted and revealed 3 new suspected metastatic lesions to the brain with vasogenic edema I had extensive discussion with the family regarding plan of care recommending transfer to a facility capable of managing this complex situation however family with the support of oncology team opted to stay in the hospital and declined the transfer. New cerebral metastatic lesions with vasogenic edema Incidental finding on routine surveillance CT of the brain which showed worsening metastatic disease to the brain with multiple enhancing lesions 1.1 cm right frontal lobe and 1.9 cm right cerebellar mass and 1.3 cm central cerebella r mass with vasogenic edema Patient and family declined my recommendation for a transfer to a different facility which can handle this complex findings Oncology consult, was notified and agreed with the patient wishes and keeping the patient in house Seizure precautions and fall precautions Decadron 10 mg IV push, then continue with 4 mg IV push every 6 hours Load with Keppra 1000 mg IV piggyback then continue with 500 mg twice daily Severe hypokalemia secondary to chronic diarrhea Continue to replace orally and IV follow-up levels closely Imodium as needed for diarrhea Potassium level 2.7 low Magnesium level 2 unremarkable Chronic anemia with hemoglobin 8.3 Denies any GI bleeding Patient had recent episode of GI bleeding a month ago for which she was transferred to [facility] with pancolitis Continue to monitor hemoglobin level Chronic conditions Diabetes mellitus, insulin sliding scale Hypertension, paroxysmal A-fib not on anticoagulation due to recent GI bleeding, COPD, continue home medications Most recent echocardiogram done about a month ago showed left ventricular ejection fraction of 45-50% Full code DVT prophylaxis Lovenox 40 mg subcu daily GI prophylaxis continue with PPI Guarded prognosis, patient family voiced possible interest in exploring hospice option wants to discuss their new findings with radiation oncology and oncology team
[2024-09-23] MEDS: ALPRAZolam 0.25 MG TAB PO PRN (06:49)
[2024-09-23 08:13] LABS: Potassium 2.7 mmol/L (3.5-5.1)
[2024-09-23] MEDS ORDERED: POTASSIUM CHLORIDE ER 20 MEQ TAB.ER PO SCH (09:00)
[2024-09-23 10:25] LABS: Glucose,Whole Blood 118 mg/dL (70-110)
[2024-09-23] MEDS: DEXAMETHASONE SOD PHOSPHATE 10 MG/ML 1 ML VIAL IVP STA (10:43)
[2024-09-23] MEDS: ENOXAPARIN 40 MG/0.4 ML SYRINGE SQ SCH (10:47)
[2024-09-23] MEDS: PANTOPRAZOLE 40 MG TABLET PO SCH (10:47)
[2024-09-23] MEDS: levETIRAcetam IV 500 MG/5 ML VIAL IVP STA (10:47)
[2024-09-23] MEDS: INSULIN ASPART (NovoLOG) 100 UNIT/ML VIAL SQ SCH (10:47)
[2024-09-23 12:24] LABS: African American GFR (CKD) 79 (>60 ml/min/1.73 sqM); Anion Gap 1 mmol/L; Blood Urea Nitrogen <2 mg/dL (7-17); Calcium 8.1 mg/dL (8.4-10.2); Carbon Dioxide 26 mmol/L (22-30); Chloride 107 mmol/L (98-107); Glucose 113 mg/dL (74-99); Magnesium 1.8 mg/dL (1.6-2.3); Non-African American GFR(CKD) 68 (>60 ml/min/1.73 sqM); Potassium 2.9 mmol/L (3.5-5.1); Sodium 134 mmol/L (137-145)
[2024-09-23] MEDS: DEXAMETHASONE SOD PHOSPHATE 4 MG/ML 1 ML VIAL IVP SCH (12:37)
[2024-09-23] MEDS ORDERED: Potassium Replacement Protocol 1 EACH MISC MISCELLANE PRN (16:03)
--- NOTE | 2024-09-23 16:16 | P.CONS ---
History of Present Illness - Reason for Consult Consult date: 09/23/24 lung cancer Requesting physician: Cl Feliz - Chief Complaint hypokalemia - History of Present Illness Ms. Moeller is a 74-year-old woman with a past medical history significant for extensive stage small cell lung cancer who received 6 cycles of carboplatin /etoposide/atezolizumab followed by 6 cycles of maintenance atezolizumab with disease progression with brain metastases in March 2024 status post 3 fractions of SRS in May 2024 with disease progression systemically in the lung and liver. She most recently completed 3 cycles of lurbinectedin on 08/27/24. Unfortunately treatment has been delayed due to multiple hospitalizations over the last 1 month. Patient has been receiving magnesium and potassium IV supplementation in clinic over the last 1 week. Patient presents emergency room for hypokalemia that was noted in outpatient blo od work. Upon admission potassium 2.7. IV potassium supplementation has been ordered. Patient is reporting persisting weakness and increased dizziness. Diarrhea is persisting but has been slowly improving since her last admit. On admission CT brain with and without contrast was obtained which showed new enhancing 1.1 cm right frontal lobe lesion with surrounding hypodensity or vasogenic edema. Larger enhancing 1.9 cm right cerebellar mass. More prominent heterogeneous enhancing 1.3 cm central cerebellar mass. Dexamethasone and Keppra has been started. Review of Systems 10 point ROS is negative except as stated in the HPI Past Medical History Past Medical History: Atrial Flutter, Cancer, COPD, Diabetes Mellitus, GERD/Reflux, Hyperlipidemia, Hypertension, Osteoarthritis (OA), Vascular Disorder Additional Past Medical History / Comment(s): IDDM type II, osteoporosis, peripheral vascular disease with poor circulation involving lower extremities, urinary incontinence, previous history of epicardial wires in the heart from previous cardiac surgery, probably related to the myxoma resection. murmur. hx breast cancer- radiation complete 04/2023. current spot on lung NO LEFT ARM use. 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 Pt has claustrophobia. Past Psychological History: Anxiety, Panic Disorder Smoking Status: Current every day smoker Past Alcohol Use History: None Reported Past Drug Use History: None Reported - Past Family History Mother Family Medical History: Diabetes Mellitus, Hyperlipidemia, Hypertension Sister(s) Family Medical History: Cancer Additional Family Medical History / Comment(s): Cervical cancer. She is . Medications and Allergies Home Medications Medication Instructions Recorded Confirmed Type Escitalopram [Lexapro] 20 mg PO HS@1800 12/23/23 09/23/24 History Esomeprazole Magnesium [NexIUM] 40 mg PO DAILY@1100 12/23/23 09/23/24 History ALPRAZolam [Xanax] 0.125 - 0.25 mg PO BID PRN 07/30/24 09/23/24 History Furosemide [Lasix] 20 mg PO DAILY PRN 07/30/24 09/23/24 History HYDROcodone/APAP 5-325MG [[place] 1 tab PO Q6H PRN 08/31/24 09/23/24 History 5-325] Loperamide [Imodium] 2 - 4 mg PO QID PRN 08/31/24 09/23/24 History Diphenox-Atrop 2.5-0.025 mg 2 tab PO Q6H PRN 09/23/24 09/23/24 History [Lomotil] Allergies Allergy/AdvReac Type Severity Reaction Status Date / Time dog dander Allergy Runny nose Verified 09/22/24 20:42 horse dander Allergy Runny nose Verified 09/22/24 20:42 mold Allergy Runny nose Verified 09/22/24 20:42 codeine AdvReac Chest Pain Verified 09/22/24 20:42 empagliflozin AdvReac severe UTI Verified 09/22/24 20:42 [From Jardiance] gabapentin AdvReac Confusion Verified 09/22/24 20:42 metformin AdvReac Diarrhea Verified 09/22/24 20:42 pioglitazone [From Actos] AdvReac denies Verified 09/22/24 20:42 allergy semaglutide [From Ozempic] AdvReac denies Verified 09/22/24 20:42 allergy sitagliptin [From Januvia] AdvReac severe UTI Verified 09/22/24 20:42 dogs,horses,mold Allergy Runny nose Uncoded 09/22/24 20:42 Physical Exam Vitals: Vital Signs Temp Pulse Resp BP Pulse Ox 09/23/24 06:14 98.3 F 84 19 121/67 98 09/23/24 04:27 97.6 F 80 18 125/76 99 09/23/24 03:22 97.6 F 81 18 149/79 100 09/22/24 20:42 98.6 F 78 18 90/61 100 Intake and Output 09/22/24 09/23/24 09/23/24 22:59 06:59 14:59 Other: Weight 73.028 kg - Constitutional General appearance: average body habitus, no acute distress - EENT Eyes: EOMI ENT: hearing grossly normal - Respiratory Respiratory: bilateral: CTA - Integumentary Integumentary: no cyanotic, no jaundiced - Neurologic no focal deficits - Musculoskeletal Musculoskeletal: generalized weakness - Psychiatric Psychiatric: A&O x's 3 Results CBC & Chem 7: 09/23/24 00:41 09/23/24 11:56 Labs: Abnormal Lab Results - Last 24 Hours (Table) 09/23/24 09/23/24 09/23/24 Range/Units 00:41 00:41 10:24 RBC 2.48 L (3.80-5.40) m/uL Hgb 8.3 L (11.4-16.0) gm/dL Hct 26.1 L (34.0-46.0) % MCV 105.3 H D (80.0-100.0) fL RDW 19.3 H (11.5-15.5) % Plt Count 143 L D (150-450) k/uL Macrocytosis Marked A Sodium 134 L (137-145) mmol/L Potassium 2.7 L* (3.5-5.1) mmol/L BUN <2 L (7-17) mg/dL Glucose 160 H (74-99) mg/dL POC Glucose (mg/dL) 118 H (70-110) mg/dL Calcium 8.1 L (8.4-10.2) mg/dL Alkaline Phosphatase 227 H (38-126) U/L Total Protein 4.2 L (6.3-8.2) g/dL Albumin 1.9 L (3.5-5.0) g/dL CT Scan - head: report reviewed Assessment and Plan (1) Hypokalemia Current Visit: Yes Status: Acute Priority: High Code(s): E87.6 - HYPOKALEMIA SNOMED Code(s): 51761062 (2) Extensive stage primary small cell carcinoma of lung Current Visit: Yes Status: Chronic Priority: High Code(s): C34.90 - MALIGNANT NEOPLASM OF UNSP PART OF UNSP BRONCHUS OR LUNG SNOMED Code(s): 654887525717269 Plan: Hypokalemia: -Upon admit potassium 2.7 -Potassium supplementation ordered -Likely secondary to persisting diarrhea -Continue to monitor potassium levels. Anti-diarrheals ordered Extensive stage small cell lung cancer with brain metastasis: -Oncology history as dictated in the HPI -Most recently completed 3 cycles of lurbinectedin on 08/27/24. Unfortunately treatment has been delayed due to multiple hospitalizations over the last 1 month. -CT brain with and without contrast was obtained which showed new enhancing 1.1 cm right frontal lobe lesion with surrounding hypodensity or vasogenic edema. Larger enhancing 1.9 cm right cerebellar mass. More prominent heterogeneous enhancing 1.3 cm central cerebellar mass. -Dexamethasone and Keppra has been started -Had long discussion with patient and family today regarding diagnosis, treatment options and goals of care. Patient and family at this time, do not want any aggressive measures and are leaning towards hospice/comfort care measures, which is reasonable considering her extensive stage malignancy and poor PS. We did discuss possible palliative RT to the newly noted brain lesions. They would like to further discuss radiation options. Spoke with Dr. Bartholomew today who will review scans and follow up with patient to further discuss his recommendations. Code status was discussed and patient would like to change code status to NO CODE. This was discussed with nursing as well. EMR updated -Consult placed for hospice informational session Doctor attests: I performed a history and physical examination of this patient, developed impression and plan of care. Discussed with dictator. I agree with dictators note, documented as a scribe.
--- NOTE | 2024-09-23 16:32 | P.CONS ---
History of Present Illness - Reason for Consult Consult date: 09/23/24 new brain metastases Requesting physician: Bart Lyon - Chief Complaint weakness - History of Present Illness The patient is a 74-year-old female with a history of extensive stage small cell lung cancer, diagnosed in November 2023. She has been treated with chemo immunotherapy. She unfortunately developed brain metastases, and underwent radiosurgery finishing treatment to his cerebellar lesion in May 2024. The patient has undergone additional therapy with Zepzelca but unfortunately has had declined and her performance status. At the time of my consultation, the patient is quite drowsy and in and out of consciousness. According to the family, the patient has been very weak and has not had any chemotherapy for now greater than 1 month. She is unable to ambu late, relying on family members to help move her to the restroom. She has not been having any specific complaints of pain, headaches or nausea. She is eating very little according to her family. She underwent a CT of the brain earlier today. There were at least 2 new lesions noted with surrounding vasogenic edema. The patient had been on 4 mg of dexamethasone at home. Review of Systems ROS unobtainable: due to mental status Past Medical History Past Medical History: Atrial Flutter, Cancer, COPD, Diabetes Mellitus, GERD/Reflux, Hyperlipidemia, Hypertension, Osteoarthritis (OA), Vascular Disorder Additional Past Medical History / Comment(s): IDDM type II, osteoporosis, peripheral vascular disease with poor circulation involving lower extremities, urinary incontinence, previous history of epicardial wires in the heart from previous cardiac surgery, probably related to the myxoma resection. murmur. hx breast cancer- radiation complete 04/2023. current spot on lung NO LEFT ARM use. 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 Pt has claustrophobia. Past Psychological History: Anxiety, Panic Disorder Smoking Status: Current every day smoker Past Alcohol Use History: None Reported Past Drug Use History: None Reported - Past Family History Mother Family Medical History: Diabetes Mellitus, Hyperlipidemia, Hypertension Sister(s) Family Medical History: Cancer Additional Family Medical History / Comment(s): Cervical cancer. She is . Medications and Allergies Home Medications Medication Instructions Recorded Confirmed Type Escitalopram [Lexapro] 20 mg PO HS@1800 12/23/23 09/23/24 History Esomeprazole Magnesium [NexIUM] 40 mg PO DAILY@1100 12/23/23 09/23/24 History ALPRAZolam [Xanax] 0.125 - 0.25 mg PO BID PRN 07/30/24 09/23/24 History Furosemide [Lasix] 20 mg PO DAILY PRN 07/30/24 09/23/24 History HYDROcodone/APAP 5-325MG [[place] 1 tab PO Q6H PRN 08/31/24 09/23/24 History 5-325] Loperamide [Imodium] 2 - 4 mg PO QID PRN 08/31/24 09/23/24 History Diphenox-Atrop 2.5-0.025 mg 2 tab PO Q6H PRN 09/23/24 09/23/24 History [Lomotil] Allergies Allergy/AdvReac Type Severity Reaction Status Date / Time dog dander Allergy Runny nose Verified 09/22/24 20:42 horse dander Allergy Runny nose Verified 09/22/24 20:42 mold Allergy Runny nose Verified 09/22/24 20:42 codeine AdvReac Chest Pain Verified 09/22/24 20:42 empagliflozin AdvReac severe UTI Verified 09/22/24 20:42 [From Jardiance] gabapentin AdvReac Confusion Verified 09/22/24 20:42 metformin AdvReac Diarrhea Verified 09/22/24 20:42 pioglitazone [From Actos] AdvReac denies Verified 09/22/24 20:42 allergy semaglutide [From Ozempic] AdvReac denies Verified 09/22/24 20:42 allergy sitagliptin [From Januvia] AdvReac severe UTI Verified 09/22/24 20:42 dogs,horses,mold Allergy Runny nose Uncoded 09/22/24 20:42 Physical Exam Vitals: Vital Signs Temp Pulse Pulse Resp BP BP Pulse Ox 09/23/24 14:08 97.7 F 75 17 123/67 96 09/23/24 14:00 75 17 09/23/24 09:45 96.6 F L 76 16 165/73 100 09/23/24 06:14 98.3 F 84 19 121/67 98 09/23/24 04:27 97.6 F 80 18 125/76 99 09/23/24 03:22 97.6 F 81 18 149/79 100 09/22/24 20:42 98.6 F 78 18 90/61 100 Intake and Output 09/23/24 09/23/24 09/23/24 06:59 14:59 22:59 Other: Voiding Method Toilet - Constitutional General appearance: no acute distress - EENT Eyes: EOMI, PERRLA ENT: hearing grossly normal - Neck Neck: no lymphadenopathy - Respiratory Respiratory: bilateral: diminished - Cardiovascular Rhythm: regular - Gastrointestinal General gastrointestinal: no distended, no tenderness - Integumentary Integumentary: pale - Neurologic Neurologic: CNII-XII intact - Psychiatric Psychiatric: no A&O x's 3 (Intermittent confusion), no appropriate affect Results CBC & Chem 7: 09/23/24 00:41 09/23/24 11:56 Labs: Abnormal Lab Results - Last 24 Hours (Table) 09/23/24 09/23/24 09/23/24 Range/Units 00:41 00:41 10:24 RBC 2.48 L (3.80-5.40) m/uL Hgb 8.3 L (11.4-16.0) gm/dL Hct 26.1 L (34.0-46.0) % MCV 105.3 H D (80.0-100.0) fL RDW 19.3 H (11.5-15.5) % Plt Count 143 L D (150-450) k/uL Macrocytosis Marked A Sodium 134 L (137-145) mmol/L Potassium 2.7 L* (3.5-5.1) mmol/L BUN <2 L (7-17) mg/dL Glucose 160 H (74-99) mg/dL POC Glucose (mg/dL) 118 H (70-110) mg/dL Calcium 8.1 L (8.4-10.2) mg/dL Alkaline Phosphatase 227 H (38-126) U/L Total Protein 4.2 L (6.3-8.2) g/dL Albumin 1.9 L (3.5-5.0) g/dL 09/23/24 Range/Units 11:56 RBC (3.80-5.40) m/uL Hgb (11.4-16.0) gm/dL Hct (34.0-46.0) % MCV (80.0-100.0) fL RDW (11.5-15.5) % Plt Count (150-450) k/uL Macrocytosis Sodium 134 L (137-145) mmol/L Potassium 2.9 L (3.5-5.1) mmol/L BUN <2 L (7-17) mg/dL Glucose 113 H (74-99) mg/dL POC Glucose (mg/dL) (70-110) mg/dL Calcium 8.1 L (8.4-10.2) mg/dL Alkaline Phosphatase (38-126) U/L Total Protein (6.3-8.2) g/dL Albumin (3.5-5.0) g/dL CT Scan - head: report reviewed, image reviewed Assessment and Plan Assessment: The patient is a 74-year-old female with a history of extensive stage small cell lung cancer, diagnosed in November 2023. She has been treated with chemo immunotherapy. She unfortunately developed brain metastases, and underwent radiosurgery finishing treatment to his cerebellar lesion in May 2024. The patient has undergone additional therapy with Zepzelca but unfortunately has had declined and her performance status. Plan: 1. Brain metastases: At this time, the patient presents with a severely compromised performance status. The patient's family does not seem to wish for additional treatments. I also felt that the patient would likely not benefit significantly from any radiation to the brain in her current state. She has been unable to undergo chemotherapy for more than a month, and had progression of her systemic disease this fall. I did recommend the patient continue Decadron if this is helpful for her. The patient and her family are hoping to m eet with hospice within the next 24 hours. We will continue to monitor her progress, but it is unlikely the patient would benefit from additional treatments. Time with Patient: Greater than 30
[2024-09-23 17:19] LABS: Glucose,Whole Blood 278 mg/dL (70-110)
[2024-09-23] MEDS: POTASSIUM CHLORIDE 20 MEQ in WATER FOR INJECTION 1 100ML.BAG IVPB SCH (17:45)
[2024-09-23 20:41] LABS: Glucose,Whole Blood 222 mg/dL (70-110)
[2024-09-23] MEDS: levETIRAcetam IV 500 MG/5 ML VIAL IVP SCH (21:39)
[2024-09-23] MEDS: ESCITALOPRAM 20 MG TAB PO SCH (23:30)
[2024-09-24 03:40] VITALS: TEMP 97.8
[2024-09-24 05:55] LABS: Glucose,Whole Blood 132 mg/dL (70-110)
[2024-09-24 08:38] LABS: African American GFR (CKD) 83 (>60 ml/min/1.73 sqM); Anion Gap 3 mmol/L; Blood Urea Nitrogen <2 mg/dL (7-17); Calcium 8.6 mg/dL (8.4-10.2); Carbon Dioxide 25 mmol/L (22-30); Chloride 107 mmol/L (98-107); Glucose 176 mg/dL (74-99); Non-African American GFR(CKD) 72 (>60 ml/min/1.73 sqM); Potassium 3.3 mmol/L (3.5-5.1); Sodium 135 mmol/L (137-145)
[2024-09-24 09:01] VITALS: BP 139/70; PULSE 93; RESP 16
--- NOTE | 2024-09-24 10:43 | P.DS ---
Providers Date of admission: 09/23/24 02:00 Expected date of discharge: 09/24/24 Attending physician: Cindi Melissa MD Consults: 09/23/24 05:39 Consult Physician Routine Consulting Provider: Bart Lyon Consult Reason/Comments: cancer Do you want consulting provider notified?: Already Contacted 09/23/24 12:02 Consult Physician Routine Consulting Provider: Chad Bartholomew Consult Reason/Comments: brain mets, eval for palliative RT Do you want consulting provider notified?: Yes Primary care physician: [facility] Course: Hospital course: 74-year-old female with small cell lung cancer metastasis to the liver and cerebellum. Status postchemotherapy and immunotherapy Patient with symptom from her oncologist office for critical hypokalemia she has been battling with hypokalemia and hypomagnesemia for over a month now due to chronic diarrhea with frequent presentations for the same problem. Patient admitted for evaluation of severe hypokalemia and new metastatic lesions found on CT scan. Patient placed on cardiac monitoring, potassium repleted IV and PO, magnesium level checked. HemeOnc was consulted for co-management. Patient and family requested consult with hospice and pallative care for recommendations for goals of care. Patient decided to be placed on no code. Today, patient and family decided to discharge to have home hospice. Final Diagnosis: #. New cerebral metastatic lesions with vasogenic edema #. Severe hypokalemia secondary to chronic diarrhea, resvolved #. Chronic anemia, stable #. Diabetes mellitus #. Hypertension #. Paroxysmal A-fib #. Small Cell Lung Cancer with metastasis to liver and cerebellum s/p chemotherapy and immunotherapy Physical Exam: Vital signs reviewed General: non toxic, no distress, appears at stated age Head: atraumatic, normocephalic, symmetric Mouth: no lip lesion, mucus membranes moist Cardiovascular: S1S2 reg, no murmur Lungs: CTA bilateral, no rhonchi, no rales, no accessory muscle use Abdominal: soft, nondistended, nontender to palpation, no guarding Ext: muscle strength 5 out of 5 in all 4 extremities grossly, no gross muscle atrophy, no contractures, positive dorsalis pedis pulse bilateral, no edema Neuro: no gross focal neuro deficits Psych: Alert and oriented x3, appropriate affect and mood A total of 36 minutes of time were spent preparing this complex discharge summary. Patient was discharged on 09/24/2024 at 929. I have seen and evaluated the patient today. Discussed with the resident and agree with the residents finding and plan as documented in the resident's note. Changes highlighted in blue font. Patient Condition at Discharge: Stable Plan - Discharge Summary Discharge Rx Participant: No New Discharge Prescriptions: Continue Esomeprazole Magnesium [NexIUM] 40 mg PO DAILY@1100 ALPRAZolam [Xanax] 0.125 - 0.25 mg PO BID PRN PRN Reason: Anxiety HYDROcodone/APAP 5-325MG [[place] 5-325] 1 tab PO Q6H PRN PRN Reason: Pain Escitalopram [Lexapro] 20 mg PO HS@1800 Furosemide [Lasix] 20 mg PO DAILY PRN PRN Reason: Edema Loperamide [Imodium] 2 - 4 mg PO QID PRN PRN Reason: Diarrhea Diphenox-Atrop 2.5-0.025 mg [Lomotil] 2 tab PO Q6H PRN PRN Reason: Diarrhea Discharge Medication List Escitalopram [Lexapro] 20 mg PO HS@1800 12/23/23 [History] Esomeprazole Magnesium [NexIUM] 40 mg PO DAILY@1100 12/23/23 [History] ALPRAZolam [Xanax] 0.125 - 0.25 mg PO BID PRN 07/30/24 [History] Furosemide [Lasix] 20 mg PO DAILY PRN 07/30/24 [History] HYDROcodone/APAP 5-325MG [[place] 5-325] 1 tab PO Q6H PRN 08/31/24 [History] Loperamide [Imodium] 2 - 4 mg PO QID PRN 08/31/24 [History] Diphenox-Atrop 2.5-0.025 mg [Lomotil] 2 tab PO Q6H PRN 09/23/24 [History] Follow up Appointment(s)/Referral(s): Jaden Barajas DO [Primary Care Provider] - 1-2 days Patient Instructions/Handouts: Hospice Care (GEN) Discharge Disposition: HOME WITH HOSPICE
[2024-09-24 11:42] VITALS: BMI 26.8
--- NOTE | 2024-09-24 15:08 | P.PN ---
Subjective Progress Note Date: 09/24/24 No acute events. Pt resting comfortably in bed, family and hospice team at bedside. Pt reporting feeling improved today. Plan to be discharged home today with hospice Objective - Vital Signs Vital signs: Vital Signs Temp 97.8 F 09/24/24 02:00 Pulse 93 09/24/24 07:00 Resp 16 09/24/24 07:00 BP 139/70 09/24/24 07:00 Pulse Ox 100 09/24/24 07:00 FiO2 Intake & Output 09/23/24 09/24/24 09/24/24 18:59 06:59 18:59 Intake Total 530 Balance 530 Weight 73.028 kg 73.028 kg Intake: IV 30 Invasive Line 1 30 Intake, IV Titration 300 Amount Potassium Chloride 20 meq 300 In Water For Injection 1 100ml.bag @ 50 mls/hr IVPB Q2H [facility] Rx#: [id number] Oral 200 Other: Voiding Method Toilet Bedside Commode # Voids 2 # Bowel Movements 2 - Constitutional General appearance: Present: no acute distress - EENT ENT: Present: hearing grossly normal - Respiratory Details: breathing is even and unlabored - Cardiovascular Details: skin warm and dry - Integumentary Integumentary: Absent: cyanotic - Psychiatric Psychiatric: Present: A&O x's 3 - Labs CBC & Chem 7: 09/23/24 00:41 09/24/24 08:10 Labs: Abnormal Lab Results - Last 24 Hours (Table) 09/23/24 09/23/24 09/23/24 Range/Units 11:56 17:19 20:40 Sodium 134 L (137-145) mmol/L Potassium 2.9 L (3.5-5.1) mmol/L BUN <2 L (7-17) mg/dL Glucose 113 H (74-99) mg/dL POC Glucose (mg/dL) 278 H 222 H (70-110) mg/dL Hemoglobin A1c (<=6.0) % Calcium 8.1 L (8.4-10.2) mg/dL 09/24/24 09/24/24 09/24/24 Range/Units 03:23 03:23 05:54 Sodium (137-145) mmol/L Potassium 3.3 L (3.5-5.1) mmol/L BUN (7-17) mg/dL Glucose (74-99) mg/dL POC Glucose (mg/dL) 132 H (70-110) mg/dL Hemoglobin A1c 6.3 H (<=6.0) % Calcium (8.4-10.2) mg/dL 09/24/24 Range/Units 08:10 Sodium 135 L (137-145) mmol/L Potassium 3.3 L (3.5-5.1) mmol/L BUN <2 L (7-17) mg/dL Glucose 176 H (74-99) mg/dL POC Glucose (mg/dL) (70-110) mg/dL Hemoglobin A1c (<=6.0) % Calcium (8.4-10.2) mg/dL Assessment and Plan (1) Hypokalemia Status: Acute Priority: High Code(s): E87.6 - HYPOKALEMIA SNOMED Code(s): 72094432 (2) Extensive stage primary small cell carcinoma of lung Status: Chronic Priority: High Code(s): C34.90 - MALIGNANT NEOPLASM OF UNSP PART OF UNSP BRONCHUS OR LUNG SNOMED Code(s): 775489124170312 Plan: Hypokalemia: -Upon admit potassium 2.7 -Potassium supplementation ordered. Potassium 3.3 today -Likely secondary to persisting diarrhea -Continue to monitor potassium levels. Anti-diarrheals ordered Extensive stage small cell lung cancer with brain metastasis: -Oncology history as dictated in the HPI -Most recently completed 3 cycles of lurbinectedin on 08/27/24. Unfortunately treatment has been delayed due to multiple hospitalizations over the last 1 month. -CT brain with and without contrast was obtained which showed new enhancing 1.1 cm right frontal lobe lesion with surrounding hypodensity or vasogenic edema. Larger enhancing 1.9 cm right cerebellar mass. More prominent heterogeneous enhancing 1.3 cm central cerebellar mass. -Dexamethasone and Keppra has been started -Had long discussion with patient and family regarding diagnosis, treatment options and goals of care. Patient and family at this time, do not want any aggressive measures and are leaning towards hospice/comfort care measures, which is reasonable considering her extensive stage malignancy and poor PS. We did discuss possible palliative RT to the newly noted brain lesions. They would like to further discuss radiation options. Dr. Bartholomew evaluated pt, no plan for RT. Code status was discussed and patient would like to change code status to NO CODE. This was discussed with nursing as well. EMR updated -Patient and family has meet with hospice team. They have decided to go home on comfort care measures, planning for discharge today. All questions and concerns were addressed
== END 2024-09-24 12:23 | disposition hospice, home (50) ==
LOC: EC 19:57 → 6NMEDSUR 09-23 02:00 → 1SOBS 09-23 07:38
PROVIDERS: ADMIT Internal Medicine; ATTEND Internal Medicine
DX: E87.6 Hypokalemia (principal); E83.42 Hypomagnesemia; K52.9 Noninfective gastroenteritis and colitis, unspecified; C78.7 Secondary malignant neoplasm of liver and intrahepatic bile duct; C79.31 Secondary malignant neoplasm of brain; G93.6 Cerebral edema; D64.9 Anemia, unspecified; J44.9 Chronic obstructive pulmonary disease, unspecified; K21.9 Gastro-esophageal reflux disease without esophagitis; E78.5 Hyperlipidemia, unspecified; I48.0 Paroxysmal atrial fibrillation; E11.51 Type 2 diabetes mellitus with diabetic peripheral angiopathy without gangrene; I10 Essential (primary) hypertension; F41.0 Panic disorder [episodic paroxysmal anxiety]; F17.200 Nicotine dependence, unspecified, uncomplicated; Z85.118 Personal history of other malignant neoplasm of bronchus and lung; Z85.3 Personal history of malignant neoplasm of breast; Z92.21 Personal history of antineoplastic chemotherapy; Z92.3 Personal history of irradiation; Z79.811 Long term (current) use of aromatase inhibitors; Z79.4 Long term (current) use of insulin; Z79.899 Other long term (current) drug therapy; Z88.5 Allergy status to narcotic agent
CPT/HCPCS: 96366 ×3; 96372 ×2; 96375; 96376 ×2; 96365; 99285; 36415; 93005; 80053; 80048 ×2; 83735; 84132; 85025; 83036; 70470; G0378 ×3; J1100 ×3; J3480 ×2; J1650 ×2; J1953 ×2